=== PATIENT | female | born 1955 | race Caucasian/White ===

== ENCOUNTER → 2018-04-07 | Outpatient (CLI) | payer OTHER ==
--- NOTE | 2018-04-07 22:53 | MR ---
EXAMINATION TYPE: MR shoulder LT wo con DATE OF EXAM: 04/07/2018 COMPARISON: NONE HISTORY: Lt shoulder pain x 8 wks, no trauma TECHNIQUE: Multiplanar, multisequence imaging of the left shoulder is performed without contrast. FINDINGS: Exam is suboptimal due to patient motion artifact. Rotator Cuff: There is marked increased signal in the distal supraspinatus and infraspinatus tendons. There are partial tears at articular surface seen best paracoronal image 15 more prominent involving the infraspinatus tendon. Subscapularis tendon shows increased signal without tear. Rotator cuff mus jersey bulk is preserved. Acromioclavicular Joint: There is moderate to advanced narrowing with superior capsular hypertrophy a t the acromioclavicular joint. There is loss of anterior fat plane at distal clavicle which is inferi or to position relative to the acromion. Glenohumeral Joint: Moderate to large glenohumeral joint effusion is seen. There is moderate narrowin g. No significant spurring is present. Labrum: Blunted appearance and increased signal consistent with tear through the superior labrum is n oted. Biceps Tendon: The long head of biceps is could not clearly identified within normal location within the groove, intracapsular portion also not well visualized. Cannot exclude tear/dislocation. Bone marrow signal: Extensive subchondral cystic change superolateral humeral head is present. Other: No additional significant abnormality is appreciated. IMPRESSION: Tendinosis/partial tears of rotator cuff muscles. Fairly advanced AC joint arthropathy wi th underlying impingement. Suspect tear/dislocation of long head of biceps tendon. Superior labral te ar noted.
== END | disposition home or self-care (01) ==
LOC: RADMRIMAIN 15:34
PROVIDERS: ATTEND Internal Medicine
DX: M75.112 Incomplete rotator cuff tear or rupture of left shoulder, not specified as traumatic (principal); M19.012 Primary osteoarthritis, left shoulder; M75.42 Impingement syndrome of left shoulder; S43.492A Other sprain of left shoulder joint, initial encounter

== ENCOUNTER → 2018-04-24 | Outpatient (CLI) | payer OTHER ==
--- NOTE | 2018-04-25 15:05 | MM ---
Reason for exam: screening (asymptomatic). Last mammogram was performed 2 years and 10 months ago. History: Patient is postmenopausal and has history of endometrial cancer at age 45. Took estrogen for 1 year 3 months. Physical Findings: A clinical breast exam by your physician is recommended on an annual basis and results should be correlated with mammographic findings. MG Screening Mammo w CAD Bilateral CC and MLO view(s) were taken. XCCM view(s) were taken of the left breast. Prior study comparison: June 15, 2015, bilateral MG screening mammo w CAD. May 07, 2014, bilateral MG screening mammo w CAD. There are scattered fibroglandular densities. There is chronic nodularity bilaterally. No significant changes when compared with prior studies. ASSESSMENT: Benign, BI-RAD 2 RECOMMENDATION: Routine screening mammogram of both breasts in 1 year.
== END | disposition home or self-care (01) ==
LOC: RADMAMWWP 08:56
PROVIDERS: ATTEND Internal Medicine
DX: Z12.31 Encounter for screening mammogram for malignant neoplasm of breast (principal)
CPT/HCPCS: 77067

== ENCOUNTER → 2018-08-27 | Outpatient (CLI) | payer OTHER ==
--- NOTE | 2018-08-27 13:15 | XR ---
EXAMINATION TYPE: XR chest 2V DATE OF EXAM: 08/27/2018 COMPARISON: 10/26/2015 INDICATION: Cough TECHNIQUE: Frontal and lateral views of the chest are obtained. FINDINGS: The heart size is normal. The pulmonary vasculature is normal. The lungs are clear. IMPRESSION: 1. No acute pulmonary process.
== END | disposition home or self-care (01) ==
LOC: RADXRMAIN 12:44
PROVIDERS: ATTEND Internal Medicine
DX: R05 Cough (principal)
CPT/HCPCS: 71046

== ENCOUNTER → 2019-06-13 | Outpatient (CLI) | payer MEDICARE, OTHER ==
--- NOTE | 2019-06-19 09:54 | MM ---
Reason for exam: screening (asymptomatic). Last mammogram was performed 1 year and 2 months ago. History: Patient is postmenopausal and has history of endometrial cancer at age 45. Took estrogen for 1 year 3 months. Physical Findings: A clinical breast exam by your physician is recommended on an annual basis and results should be correlated with mammographic findings. MG Screening Mammo w CAD Bilateral CC and MLO view(s) were taken. Prior study comparison: April 24, 2018, bilateral MG screening mammo w CAD. June 15, 2015, bilateral MG screening mammo w CAD. There are scattered fibroglandular densities. There is chronic nodularity bilaterally. No significant changes when compared with prior studies. ASSESSMENT: Benign, BI-RAD 2 RECOMMENDATION: Routine screening mammogram of both breasts in 1 year.
== END | disposition home or self-care (01) ==
LOC: RADMAMWWP 08:48
PROVIDERS: ATTEND Internal Medicine
DX: Z12.31 Encounter for screening mammogram for malignant neoplasm of breast (principal)
CPT/HCPCS: 77067

== ENCOUNTER 2020-04-29 03:08 | Inpatient (IN) | payer MEDICARE, OTHER ==
[2020-04-29] MEDS ORDERED: ACETAMINOPHEN TAB 325 MG TAB PO STA (03:41)
--- NOTE | 2020-04-29 03:46 | ED ---
General Adult HPI - General Chief complaint: Weakness Stated complaint: Weakness Time Seen by Provider: 04/29/20 03:11 Source: EMS Mode of arrival: EMS Limitations: no limitations - History of Present Illness Initial comments: this patient is 64-year-old woman who presents to be evaluated for a feeling of shakiness, generalized weakness, and hyperglycemia. the patient states things started with feeling a bit shaky 3 days ago and noticing that her blood sugar was elevated. Over the course of the next couple of days she was feeling more and more weak. It is generalized weakness there is no focal symptoms. She states that mikaela was trying to walk around the house and she was not able to. She slumped to the floor and was not able to get up. They then called EMS who transported her here. The patient denies any injury. She denies any focal pain. No headache or neck pain. No chest pain, dyspnea, abdominal pain. She has not noted change in urination or bowel movements. Onset/Timin -: days(s) Severity scale (1-10): 0 Improves with: none Worsens with: none Associated Symptoms: weakness Treatments Prior to Arrival: none - Related Data Home Medications Medication Instructions Recorded Confirmed Ferrous Sulfate [Feosol] 325 mg PO BID 06/04/16 04/29/20 Furosemide [Lasix] 20 mg PO DAILY 06/04/16 04/29/20 Metoprolol Tartrate [Lopressor] 50 mg PO DAILY 06/04/16 04/29/20 Omeprazole 20 mg PO HS 06/04/16 04/29/20 Potassium Chloride [K-Tab ER] 10 meq PO DAILY 06/04/16 04/29/20 Rivaroxaban [Xarelto] 20 mg PO W/SUPPER 06/04/16 04/29/20 allopurinoL [Zyloprim] 300 mg PO DAILY 06/04/16 04/29/20 glipiZIDE [Glucotrol] 10 mg PO TID 06/04/16 04/29/20 Cetirizine HCl 10 mg PO DAILY 04/29/20 04/29/20 Dapagliflozin Propanediol [Farxiga] 10 mg PO DAILY 04/29/20 04/29/20 Digoxin 250 mcg PO DAILY 04/29/20 04/29/20 Ergocalciferol [Vitamin D2] 50,000 unit PO SA 04/29/20 04/29/20 Gabapentin 300 mg PO TID 04/29/20 04/29/20 Insulin Aspart [NovoLOG Flexpen] 10 units SQ AC-LUNCH 04/29/20 04/29/20 Insulin Degludec [Tresiba 100 units SQ HS 04/29/20 04/29/20 Flextouch U-100] metFORMIN HCL 1,000 mg PO BID 04/29/20 04/29/20 Allergies Allergy/AdvReac Type Severity Reaction Status Date / Time No Known Allergies Allergy Verified 04/29/20 07:01 Review of Systems ROS Statement: Those systems with pertinent positive or pertinent negative responses have been documented in the HPI. ROS Other: All systems not noted in ROS Statement are negative. Constitutional: Reports: weakness. Denies: fever, chills ENT: Denies: congestion Respiratory: Denies: cough, dyspnea Cardiovascular: Denies: chest pain, palpitations, orthopnea, edema, syncope Gastrointestinal: Denies: abdominal pain, nausea, vomiting, diarrhea Genitourinary: Denies: dysuria, frequency, hematuria Skin: Denies: rash Neurological: Denies: headache, weakness, numbness Past Medical History Past Medical History: Atrial Fibrillation, Diabetes Mellitus, Hypertension Additional Past Medical History / Comment(s): sinus infection History of Any Multi-Drug Resistant Organisms: None Reported Past Surgical History: Appendectomy, Section, Hysterectomy, Joint Replacement, Orthopedic Surgery Additional Past Surgical History / Comment(s): carpal tunnel bilateral, Past Psychological History: No Psychological Hx Reported Smoking Status: Never smoker Past Alcohol Use History: None Reported Past Drug Use History: None Reported General Exam Limitations: no limitations General appearance: alert, in no apparent distress Head exam: Present: atraumatic, normocephalic Eye exam: Present: normal appearance ENT exam: Present: mucous membranes dry Neck exam: Present: normal inspection, full ROM. Absent: meningismus Respiratory exam: Present: normal lung sounds bilaterally. Absent: respiratory distress, wheezes, rales, rhonchi, stridor Cardiovascular Exam: Present: regular rate, irregular rhythm, normal heart sounds. Absent: systolic murmur, diastolic murmur, rubs, gallop GI/Abdominal exam: Present: soft. Absent: distended, tenderness, guarding, re bound, rigid, mass Extremities exam: Present: normal inspection, normal capillary refill. Absent: pedal edema, calf tenderness Back exam: Present: normal inspection. Absent: CVA tenderness (R), CVA tenderness (L) Neurological exam: Present: alert Skin exam: Present: warm, dry, intact, normal color. Absent: rash Course Vital Signs 04/29/20 04/29/20 04/29/20 03:12 04:00 05:00 Temperature 101.4 F H 100.6 F H 99.4 F Pulse Rate 97 102 H 98 Respiratory 19 20 18 Rate Blood Pressure 121/84 125/83 102/63 O2 Sat by Pulse 92 L 94 L 96 Oximetry 04/29/20 04/29/20 04/29/20 06:00 07:27 09:06 Temperature 98.9 F 102.4 F H Pulse Rate 101 H 90 179 H Respiratory 19 18 33 H Rate Blood Pressure 113/51 115/69 175/81 O2 Sat by Pulse 100 96 98 Oximetry 04/29/20 04/29/20 04/29/20 09:50 12:00 13:29 Temperature 98.8 F Pulse Rate 133 H 75 77 Respiratory 18 18 18 Rate Blood Pressure 157/86 111/64 105/57 O2 Sat by Pulse 97 98 98 Oximetry EKG Findings - EKG Comments: EKG Findings:: possible old inferior infarct. - EKG Results: EKG: interpreted by ERMD, normal axis EKG shows: tachycardia (rate 106 bpm), atrial fibrillation Medical Decision Making - Lab Data Result diagrams: 04/30/20 09:17 04/30/20 09:17 Lab Results 04/29/20 04/29/20 04/29/20 Range/Units 03:21 03:21 03:21 WBC 9.3 (3.8-10.6) k/uL RBC 5.33 (3.80-5.40) m/uL Hgb 13.6 (11.4-16.0) gm/dL Hct 42.0 (34.0-46.0) % MCV 78.9 L (80.0-100.0) fL MCH 25.5 (25.0-35.0) pg MCHC 32.3 (31.0-37.0) g/dL RDW 15.6 H (11.5-15.5) % Plt Count 216 (150-450) k/uL Neutrophils % 84 % Lymphocytes % 6 % Monocytes % 7 % Eosinophils % 0 % Basophils % 1 % Neutrophils # 7.9 H (1.3-7.7) k/uL Lymphocytes # 0.6 L (1.0-4.8) k/uL Monocytes # 0.7 (0-1.0) k/uL Eosinophils # 0.0 (0-0.7) k/uL Basophils # 0.1 (0-0.2) k/uL Microcytosis Slight PT 10.9 (9.0-12.0) sec INR 1.1 (<1.2) APTT 27.5 (22.0-30.0) sec Sodium 134 L (137-145) mmol/L Potassium 4.1 (3.5-5.1) mmol/L Chloride 99 (98-107) mmol/L Carbon Dioxide 29 (22-30) mmol/L Anion Gap 6 mmol/L BUN 29 H (7-17) mg/dL Creatinine 0.80 (0.52-1.04) mg/dL Est GFR (CKD-EPI)AfAm 89 (>60 ml/min/1.73 sqM) Est GFR (CKD-EPI)NonAf 77 (>60 ml/min/1.73 sqM) Glucose 182 H (74-99) mg/dL Plasma Lactic Acid Travon (0.7-2.0) mmol/L Calcium 9.7 (8.4-10.2) mg/dL Total Bilirubin 0.7 (0.2-1.3) mg/dL AST 32 (14-36) U/L ALT 21 (4-34) U/L Alkaline Phosphatase 71 (38-126) U/L Troponin I (0.000-0.034) ng/mL Total Protein 7.0 (6.3-8.2) g/dL Albumin 3.9 (3.5-5.0) g/dL Urine Color Urine Appearance (Clear) Urine pH (5.0-8.0) Ur Specific Orange (1.001-1.035) Urine Protein (Negative) Urine Glucose (UA) (Negative) Urine Ketones (Negative) Urine Blood (Negative) Urine Nitrite (Negative) Urine Bilirubin (Negative) Urine Urobilinogen (<2.0) mg/dL Ur Leukocyte Esterase (Negative) Urine RBC (0-5) /hpf Urine WBC (0-5) /hpf Urine WBC Clumps (None) /hpf Ur Squamous Epith Cells (0-4) /hpf Amorphous Sediment (None) /hpf Urine Bacteria (None) /hpf Urine Mucus (None) /hpf Acetone, Qual Negative (Negative) Influenza Type A RNA (Not Detectd) Influenza Type B (PCR) (Not Detectd) 04/29/20 04/29/20 04/29/20 Range/Units 03:21 03:21 03:45 WBC (3.8-10.6) k/uL RBC (3.80-5.40) m/uL Hgb (11.4-16.0) gm/dL Hct (34.0-46.0) % MCV (80.0-100.0) fL MCH (25.0-35.0) pg MCHC (31.0-37.0) g/dL RDW (11.5-15.5) % Plt Count (150-450) k/uL Neutrophils % % Lymphocytes % % Monocytes % % Eosinophils % % Basophils % % Neutrophils # (1.3-7.7) k/uL Lymphocytes # (1.0-4.8) k/uL Monocytes # (0-1.0) k/uL Eosinophils # (0-0.7) k/uL Basophils # (0-0.2) k/uL Microcytosis PT (9.0-12.0) sec INR (<1.2) APTT (22.0-30.0) sec Sodium (137-145) mmol/L Potassium (3.5-5.1) mmol/L Chloride (98-107) mmol/L Carbon Dioxide (22-30) mmol/L Anion Gap mmol/L BUN (7-17) mg/dL Creatinine (0.52-1.04) mg/dL Est GFR (CKD-EPI)AfAm (>60 ml/min/1.73 sqM) Est GFR (CKD-EPI)NonAf (>60 ml/min/1.73 sqM) Glucose (74-99) mg/dL Plasma Lactic Acid Travon 1.1 (0.7-2.0) mmol/L Calcium (8.4-10.2) mg/dL Total Bilirubin (0.2-1.3) mg/dL AST (14-36) U/L ALT (4-34) U/L Alkaline Phosphatase (38-126) U/L Troponin I <0.012 (0.000-0.034) ng/mL Total Protein (6.3-8.2) g/dL Albumin (3.5-5.0) g/dL Urine Color Urine Appearance (Clear) Urine pH (5.0-8.0) Ur Specific Orange (1.001-1.035) Urine Protein (Negative) Urine Glucose (UA) (Negative) Urine Ketones (Negative) Urine Blood (Negative) Urine Nitrite (Negative) Urine Bilirubin (Negative) Urine Urobilinogen (<2.0) mg/dL Ur Leukocyte Esterase (Negative) Urine RBC (0-5) /hpf Urine WBC (0-5) /hpf Urine WBC Clumps (None) /hpf Ur Squamous Epith Cells (0-4) /hpf Amorphous Sediment (None) /hpf Urine Bacteria (None) /hpf Urine Mucus (None) /hpf Acetone, Qual (Negative) Influenza Type A RNA Not Detected (Not Detectd) Influenza Type B (PCR) Not Detected (Not Detectd) 04/29/20 Range/Units 05:00 WBC (3.8-10.6) k/uL RBC (3.80-5.40) m/uL Hgb (11.4-16.0) gm/dL Hct (34.0-46.0) % MCV (80.0-100.0) fL MCH (25.0-35.0) pg MCHC (31.0-37.0) g/dL RDW (11.5-15.5) % Plt Count (150-450) k/uL Neutrophils % % Lymphocytes % % Monocytes % % Eosinophils % % Basophils % % Neutrophils # (1.3-7.7) k/uL Lymphocytes # (1.0-4.8) k/uL Monocytes # (0-1.0) k/uL Eosinophils # (0-0.7) k/uL Basophils # (0-0.2) k/uL Microcytosis PT (9.0-12.0) sec INR (<1.2) APTT (22.0-30.0) sec Sodium (137-145) mmol/L Potassium (3.5-5.1) mmol/L Chloride (98-107) mmol/L Carbon Dioxide (22-30) mmol/L Anion Gap mmol/L BUN (7-17) mg/dL Creatinine (0.52-1.04) mg/dL Est GFR (CKD-EPI)AfAm (>60 ml/min/1.73 sqM) Est GFR (CKD-EPI)NonAf (>60 ml/min/1.73 sqM) Glucose (74-99) mg/dL Plasma Lactic Acid Travon (0.7-2.0) mmol/L Calcium (8.4-10.2) mg/dL Total Bilirubin (0.2-1.3) mg/dL AST (14-36) U/L ALT (4-34) U/L Alkaline Phosphatase (38-126) U/L Troponin I (0.000-0.034) ng/mL Total Protein (6.3-8.2) g/dL Albumin (3.5-5.0) g/dL Urine Color Yellow Urine Appearance Cloudy H (Clear) Urine pH 5.0 (5.0-8.0) Ur Specific Orange 1.021 (1.001-1.035) Urine Protein 1+ H (Negative) Urine Glucose (UA) 4+ H (Negative) Urine Ketones Negative (Negative) Urine Blood Small H (Negative) Urine Nitrite Positive H (Negative) Urine Bilirubin Negative (Negative) Urine Urobilinogen <2.0 (<2.0) mg/dL Ur Leukocyte Esterase Large H (Negative) Urine RBC 5 (0-5) /hpf Urine WBC >182 H (0-5) /hpf Urine WBC Clumps Many H (None) /hpf Ur Squamous Epith Cells 1 (0-4) /hpf Amorphous Sediment Rare H (None) /hpf Urine Bacteria Many H (None) /hpf Urine Mucus Occasional H (None) /hpf Acetone, Qual (Negative) Influenza Type A RNA (Not Detectd) Influenza Type B (PCR) (Not Detectd) Disposition Clinical Impression: Urinary tract infection, Dehydration, Hyperglycemia due to diabetes mellitus Disposition: ADMITTED IP TO THIS HOSP Condition: Good Is patient prescribed a controlled substance at d/c from ED?: No
[2020-04-29] MEDS: SODIUM CHLORIDE 0.9% 500 ML 500 ML IV SCH ×2 (03:49→04:40)
[2020-04-29 04:00] LABS: Basophils # (A) 0.1 k/uL (0-0.2); Basophils % (A) 1 %; Eosinophils % (A) 0 %; HGB 13.6 gm/dL (11.4-16.0); Lymphocytes # (A) 0.6 k/uL (1.0-4.8); Lymphocytes % (A) 6 %; MCH 25.5 pg (25.0-35.0); MCHC 32.3 g/dL (31.0-37.0); MCV 78.9 fL (80.0-100.0); Mean Platelet Volume 7.2; Microcytosis Slight; Monocytes # (A) 0.7 k/uL (0-1.0); Monocytes % (A) 7 %; Neutrophils # (A) 7.9 k/uL (1.3-7.7); Neutrophils % (A) 84 %; Platelet Count 216 k/uL (150-450); RBC 5.33 m/uL (3.80-5.40); RDW 15.6 % (11.5-15.5); WBC 9.3 k/uL (3.8-10.6)
[2020-04-29 04:05] LABS: INR 1.1 (<1.2); Partial Thromboplastin Time 27.5 sec (22.0-30.0); Prothrombin Time 10.9 sec (9.0-12.0)
[2020-04-29 04:13] LABS: ALT 21 U/L (4-34); AST 32 U/L (14-36); African American GFR (CKD) 89 (>60 ml/min/1.73 sqM); Albumin 3.9 g/dL (3.5-5.0); Alkaline Phosphatase 71 U/L (38-126); Anion Gap 6 mmol/L; Blood Urea Nitrogen 29 mg/dL (7-17); Calcium 9.7 mg/dL (8.4-10.2); Carbon Dioxide 29 mmol/L (22-30); Chloride 99 mmol/L (98-107); Glucose 182 mg/dL (74-99); Non-African American GFR(CKD) 77 (>60 ml/min/1.73 sqM); Potassium 4.1 mmol/L (3.5-5.1); Sodium 134 mmol/L (137-145); Total Bilirubin 0.7 mg/dL (0.2-1.3)
--- NOTE | 2020-04-29 04:22 | XR ---
EXAM: XR Chest, 1 View CLINICAL HISTORY: ITS.REASON XR Reason: Fever TECHNIQUE: Frontal view of the chest. COMPARISON: Chest x-ray dated 08/27/2018 FINDINGS: Lungs: Unremarkable. Pleural space: Unremarkable. Heart: Unremarkable. Mediastinum: Unremarkable. Bones/joints: Unremarkable. IMPRESSION: Normal chest x-ray.
[2020-04-29 05:28] LABS: Amorphous Sediment,Urine Rare /hpf; Appearance,Urine Cloudy (Clear); Bacteria,Urine Many /hpf; Bilirubin,Urine Negative (Negative); Blood,Urine Small (Negative); Color,Urine Yellow; Glucose,Urine (UA) 4+ (Negative); Ketones,Urine Negative (Negative); Leukocyte Esterase,Urine Large (Negative); Mucus,Urine Occasional /hpf; Nitrite,Urine Positive (Negative); Protein,Urine 1+ (Negative); RBC,Urine 5 /hpf (0-5); Specific Gravity,Urine 1.021 (1.001-1.035); Squamous Epithelial Cell,Urine 1 /hpf (0-4); Urobilinogen,Urine <2.0 mg/dL (<2.0); WBC,Urine >182 /hpf (0-5)
[2020-04-29] MEDS ORDERED: SODIUM CHLORIDE 0.9% 1,000 ML IV STA (05:37)
[2020-04-29] MEDS ORDERED: SODIUM CHLORIDE 0.9% 1,000 ML IV ONE (05:37)
[2020-04-29] MEDS ORDERED: NALOXONE 0.4 MG/ML 1 ML VIAL IV PRN (06:40)
[2020-04-29] MEDS ORDERED: ONDANSETRON 4 MG/2 ML VIAL IVP PRN (06:40)
[2020-04-29] MEDS: ACETAMINOPHEN TAB 325 MG TAB PO PRN ×2 (10:08→20:59)
[2020-04-29] MEDS: METOPROLOL TARTRATE 50 MG TAB PO SCH (10:09)
[2020-04-29] MEDS: DIGOXIN 250 MCG TAB PO SCH (10:10)
[2020-04-29 11:29] LABS: Glucose,Whole Blood 259 mg/dL (75-99)
[2020-04-29] MEDS: GABAPENTIN 300 MG CAP PO SCH ×3 (11:30→22:48)
[2020-04-29] MEDS: glipiZIDE 10 MG TAB PO SCH ×3 (11:30→22:48)
[2020-04-29] MEDS: FERROUS SULFATE 325 MG TAB PO SCH ×2 (11:34→20:59)
[2020-04-29] MEDS: POTASSIUM CHLORIDE ER 10 MEQ TAB.ER.PRT PO SCH (11:34)
[2020-04-29] MEDS: LORATADINE 10 MG TAB PO SCH (11:34)
[2020-04-29] MEDS: allopurinoL 300 MG TAB PO SCH (11:35)
[2020-04-29] MEDS: FUROSEMIDE 20 MG TAB PO SCH (11:36)
[2020-04-29] MEDS ORDERED: NON FORMULARY DRUG (Insulin Aspart [Novolog Flexpen] 100 UNIT/ML Insuln.Pen) SQ SCH (12:30)
--- NOTE | 2020-04-29 13:50 | P.HPIM ---
History of Present Illness H&P Date: 04/29/20 Luz Swann, is a 64-year-old female who presented to [facility] with symptoms of fever, chills, fall with inability to stand up she was evaluated in the emergency room, vital examination on presentation reveals a temperature of 101.4 pulse 97 respiration 19 and blood pressure 121/84 pulse ox 92% on room air, white blood count was 9.3 hemoglobin 13.6 platelet count 216 sodium 134 BUN 29 creatinine 0.8 glucose leve 182 , she had evidence of urinary tract infection, she was started on IV Rocephin, Covid 19 testing was ordered due to elevated temperature. Patient has a known history of diabetes mellitus, atrial fibrillation, hypertension, hyperlipidemia, multiple falls, and morbid obesity Review of systems patient is alert and oriented 3 in no apparent distress she has low-grade fever at this time with occasional shaking chills no headache or dizziness no chest pain no shortness of breath no cough no nausea or vomiting no abdominal pain no diarrhea no blood in the stools she has frequency with urination no burning no urgency and no hematuria. Past Medical History Past Medical History: Atrial Fibrillation, Diabetes Mellitus, Hypertension Additional Past Medical History / Comment(s): sinus infection History of Any Multi-Drug Resistant Organisms: None Reported Past Surgical History: Appendectomy, Section, Hysterectomy, Joint Replacement, Orthopedic Surgery Additional Past Surgical History / Comment(s): carpal tunnel bilateral, Past Psychological History: No Psychological Hx Reported Smoking Status: Never smoker Past Alcohol Use History: None Reported Past Drug Use History: None Reported Medications and Allergies Home Medications Medication Instructions Recorded Confirmed Type Ferrous Sulfate [Feosol] 325 mg PO BID 06/04/16 04/29/20 History Furosemide [Lasix] 20 mg PO DAILY 06/04/16 04/29/20 History Metoprolol Tartrate [Lopressor] 50 mg PO DAILY 06/04/16 04/29/20 History Omeprazole 20 mg PO HS 06/04/16 04/29/20 History Potassium Chloride [K-Tab ER] 10 meq PO DAILY 06/04/16 04/29/20 History Rivaroxaban [Xarelto] 20 mg PO W/SUPPER 06/04/16 04/29/20 History allopurinoL [Zyloprim] 300 mg PO DAILY 06/04/16 04/29/20 History glipiZIDE [Glucotrol] 10 mg PO TID 06/04/16 04/29/20 History Cetirizine HCl 10 mg PO DAILY 04/29/20 04/29/20 History Dapagliflozin Propanediol [Farxiga] 10 mg PO DAILY 04/29/20 04/29/20 History Digoxin 250 mcg PO DAILY 04/29/20 04/29/20 History Ergocalciferol [Vitamin D2] 50,000 unit PO SA 04/29/20 04/29/20 History Gabapentin 300 mg PO TID 04/29/20 04/29/20 History Insulin Aspart [NovoLOG Flexpen] 10 units SQ AC-LUNCH 04/29/20 04/29/20 History Insulin Degludec [Tresiba 100 units SQ HS 04/29/20 04/29/20 History Flextouch U-100] metFORMIN HCL 1,000 mg PO BID 04/29/20 04/29/20 History Allergies Allergy/AdvReac Type Severity Reaction Status Date / Time No Known Allergies Allergy Verified 04/29/20 07:01 Physical Exam Vitals: Vital Signs Temp Pulse Resp BP Pulse Ox 04/29/20 13:29 77 18 105/57 98 04/29/20 12:00 98.8 F 75 18 111/64 98 04/29/20 09:50 133 H 18 157/86 97 04/29/20 09:06 102.4 F H 179 H 33 H 175/81 98 04/29/20 07:27 90 18 115/69 96 04/29/20 06:00 98.9 F 101 H 19 113/51 100 04/29/20 05:00 99.4 F 98 18 102/63 96 04/29/20 04:00 100.6 F H 102 H 20 125/83 94 L 04/29/20 03:12 101.4 F H 97 19 121/84 92 L Intake and Output 04/28/20 04/29/20 04/29/20 22:59 06:59 14:59 Other: Weight 106.594 kg In general patient is alert and oriented 3 in no distress HEENT head normocephalic and atraumatic Neck is supple no JVD no goiter no lymphadenopathy Chest exam reveals a few scattered rhonchi no wheezing Cardiac exam reveals regular heart sounds S1 and S2 no gallops no murmurs Abdomen is soft nontender no organomegaly with normal bowel sounds Extremity exam reveals no edema no cyanosis or clubbing Neurological examination reveals no gross focal deficits Results CBC & Chem 7: 04/29/20 03:21 04/29/20 03:21 Labs: Abnormal Lab Results - Last 24 Hours (Table) 04/29/20 04/29/20 04/29/20 Range/Units 03:21 03:21 05:00 MCV 78.9 L (80.0-100.0) fL RDW 15.6 H (11.5-15.5) % Neutrophils # 7.9 H (1.3-7.7) k/uL Lymphocytes # 0.6 L (1.0-4.8) k/uL Sodium 134 L (137-145) mmol/L BUN 29 H (7-17) mg/dL Glucose 182 H (74-99) mg/dL POC Glucose (mg/dL) (75-99) mg/dL Urine Appearance Cloudy H (Clear) Urine Protein 1+ H (Negative) Urine Glucose (UA) 4+ H (Negative) Urine Blood Small H (Negative) Urine Nitrite Positive H (Negative) Ur Leukocyte Esterase Large H (Negative) Urine WBC >182 H (0-5) /hpf Urine WBC Clumps Many H (None) /hpf Amorphous Sediment Rare H (None) /hpf Urine Bacteria Many H (None) /hpf Urine Mucus Occasional H (None) /hpf 04/29/20 Range/Units 11:28 MCV (80.0-100.0) fL RDW (11.5-15.5) % Neutrophils # (1.3-7.7) k/uL Lymphocytes # (1.0-4.8) k/uL Sodium (137-145) mmol/L BUN (7-17) mg/dL Glucose (74-99) mg/dL POC Glucose (mg/dL) 259 H (75-99) mg/dL Urine Appearance (Clear) Urine Protein (Negative) Urine Glucose (UA) (Negative) Urine Blood (Negative) Urine Nitrite (Negative) Ur Leukocyte Esterase (Negative) Urine WBC (0-5) /hpf Urine WBC Clumps (None) /hpf Amorphous Sediment (None) /hpf Urine Bacteria (None) /hpf Urine Mucus (None) /hpf Microbiology - Last 24 Hours (Table) 04/29/20 05:00 Urine Culture - Preliminary Urine,Clean Catch Assessment and Plan Plan: 1. Urinary tract infection 2. Fever, Covid 19 testing pending 3. Dehydration, with elevated BUN to 29, and evidence of hyponatremia patient was started on IV fluid 4. Underlying history of diabetes mellitus, with hyperglycemia on presentation 5. Atrial fibrillation with occasional episodes of rapid ventricular response 6. Recent fall, no evidence of injury At this time patient will be admitted to observation unit She was started on IV fluid and IV antibiotic Urine culture ordered Covid 19 testing ordered For DVT prophylaxis subcu Lovenox For GI prophylaxis Protonix Will follow closely
[2020-04-29 16:47] LABS: Glucose,Whole Blood 234 mg/dL (75-99)
[2020-04-29 20:59] LABS: Glucose,Whole Blood 217 mg/dL (75-99)
[2020-04-29] MEDS: PANTOPRAZOLE 40 MG TABLET PO SCH (20:59)
[2020-04-29] MEDS: RIVAROXABAN 20 MG TAB PO SCH (20:59)
[2020-04-29] MEDS: INSULIN DETEMIR (LEVEMIR) 100 UNIT/ML SYR SQ SCH (21:00)
[2020-04-30] MEDS: PIPERACILLIN-TAZOBACTAM 3.375 GM in SODIUM CHLORIDE 0.9% 100 ML IVPB SCH ×3 (00:24→15:30)
[2020-04-30 06:53] LABS: Glucose,Whole Blood 66 mg/dL (75-99)
[2020-04-30 07:16] LABS: Glucose,Whole Blood 108 mg/dL (75-99)
[2020-04-30] MEDS: POTASSIUM CHLORIDE ER 10 MEQ TAB.ER.PRT PO SCH (08:20)
[2020-04-30] MEDS: glipiZIDE 10 MG TAB PO SCH ×3 (08:20→21:33)
[2020-04-30] MEDS: allopurinoL 300 MG TAB PO SCH (08:21)
[2020-04-30] MEDS: METOPROLOL TARTRATE 50 MG TAB PO SCH (08:21)
[2020-04-30] MEDS: LORATADINE 10 MG TAB PO SCH (08:21)
[2020-04-30] MEDS: FUROSEMIDE 20 MG TAB PO SCH (08:21)
[2020-04-30] MEDS: GABAPENTIN 300 MG CAP PO SCH ×3 (08:21→21:33)
[2020-04-30] MEDS: DIGOXIN 250 MCG TAB PO SCH (08:22)
[2020-04-30] MEDS: FERROUS SULFATE 325 MG TAB PO SCH ×2 (08:22→21:33)
[2020-04-30] MEDS ORDERED: ERGOCALCIFEROL 50,000 UNIT CAP PO SCH (09:00)
[2020-04-30] MEDS ORDERED: LEVOFLOXACIN 500MG-D5W PMX 500 MG in DEXTROSE/WATER 1 100ML.BAG IVPB SCH ×2 (09:00→12:00)
--- NOTE | 2020-04-30 09:01 | P.PN ---
Subjective Progress Note Date: 04/30/20 Luz Swann, is a 64-year-old female who presented to [facility] with symptoms of fever, chills, fall with inability to stand up she was evaluated in the emergency room, vital examination on presentation reveals a temperature of 101.4 pulse 97 respiration 19 and blood pressure 121/84 pulse ox 92% on room air, white blood count was 9.3 hemoglobin 13.6 platelet count 216 sodium 134 BUN 29 creatinine 0.8 glucose leve 182 , she had evidence of urinary tract infection, she was started on IV Rocephin, Covid 19 testing was ordered due to elevated temperature. Patient has a known history of diabetes mellitus, atrial fibrillation, hypertension, hyperlipidemia, multiple falls, and morbid obesity Review of systems patient is alert and oriented 3 in no apparent distress she has low-grade fever at this time with occasional shaking chills no headache or dizziness no chest pain no shortness of breath no cough no nausea or vomiting no abdominal pain no diarrhea no blood in the stools she has frequency with urination no burning no urgency and no hematuria. On 04/30/2020 patient was seen and examined on the medical floor she is alert and oriented 3 in no apparent distress she is still feeling weak and fatigued otherwise she denies any specific complaints there is no fever or chills no headache or dizziness no chest pain no shortness of breath no cough no nausea or vomiting no abdominal pain no diarrhea no blood in the stools no burning with urination no frequency or urgency and no hematuria, last night blood culture were reported as positive for gram-negative bacilli antibiotic was switched from Rocephin to Zosyn Will add Levaquin and continue to monitor closely, infectious disease consultation requested. Objective - Vital Signs Vital signs: Vital Signs Temp 98.8 F 04/30/20 03:40 Pulse 61 04/30/20 03:40 Resp 17 04/30/20 03:40 BP 132/65 04/30/20 03:40 Pulse Ox 98 04/30/20 03:40 Intake & Output 04/29/20 04/29/20 04/30/20 06:59 18:59 06:59 Weight 106.594 kg 106.594 kg Other: # Voids 1 3 - Exam In general patient is alert and oriented 3 in no distress HEENT head normocephalic and atraumatic Neck is supple no JVD no goiter no lymphadenopathy Chest exam reveals a few scattered rhonchi no wheezing Cardiac exam reveals regular heart sounds S1 and S2 no gallops no murmurs Abdomen is soft nontender no organomegaly with normal bowel sounds Extremity exam reveals no edema no cyanosis or clubbing Neurological examination reveals no gross focal deficits - Labs CBC & Chem 7: 04/29/20 03:21 04/29/20 03:21 Labs: Abnormal Lab Results - Last 24 Hours (Table) 04/29/20 04/29/20 04/29/20 Range/Units 11:28 16:46 20:57 POC Glucose (mg/dL) 259 H 234 H 217 H (75-99) mg/dL Microbiology - Last 24 Hours (Table) 04/29/20 03:21 Blood Culture Gram Stain - Preliminary Blood Blood Culture - Preliminary Gram Neg Bacilli 04/29/20 03:21 Blood Culture - Final Blood 04/29/20 05:00 Urine Culture - Preliminary Urine,Clean Catch Assessment and Plan Plan: 1. Urinary tract infection, with sepsis, blood culture positive for gram negative bacilli, antibiotic switched o Zosyn 2. Fever, Covid 19 testing pending 3. Dehydration, with elevated BUN to 29, and evidence of hyponatremia patient was started on IV fluid 4. Underlying history of diabetes mellitus, with hyperglycemia on presentation 5. Atrial fibrillation with occasional episodes of rapid ventricular response 6. Recent fall, no evidence of injury At this time patient will be admitted to observation unit She was started on IV fluid and IV antibiotic Urine culture ordered Covid 19 testing ordered For DVT prophylaxis subcu Lovenox For GI prophylaxis Protonix Will follow closely
[2020-04-30 09:33] LABS: Basophils # (A) 0.1 k/uL (0-0.2); Basophils % (A) 1 %; Eosinophils # (A) 0.1 k/uL (0-0.7); Eosinophils % (A) 1 %; HCT 37.9 % (34.0-46.0); HGB 12.3 gm/dL (11.4-16.0); Hypochromasia Slight; Lymphocytes # (A) 0.6 k/uL (1.0-4.8); Lymphocytes % (A) 8 %; MCH 26.2 pg (25.0-35.0); MCHC 32.4 g/dL (31.0-37.0); Monocytes # (A) 0.5 k/uL (0-1.0); Monocytes % (A) 7 %; Neutrophils # (A) 5.7 k/uL (1.3-7.7); Neutrophils % (A) 81 %; Platelet Count 177 k/uL (150-450); RBC 4.68 m/uL (3.80-5.40); RDW 15.6 % (11.5-15.5)
[2020-04-30 10:03] LABS: ALT 25 U/L (4-34); AST 49 U/L (14-36); African American GFR (CKD) >90 (>60 ml/min/1.73 sqM); Albumin 3.3 g/dL (3.5-5.0); Alkaline Phosphatase 53 U/L (38-126); Anion Gap 5 mmol/L; Blood Urea Nitrogen 23 mg/dL (7-17); Calcium 8.8 mg/dL (8.4-10.2); Carbon Dioxide 26 mmol/L (22-30); Chloride 102 mmol/L (98-107); Glucose 224 mg/dL (74-99); Non-African American GFR(CKD) 85 (>60 ml/min/1.73 sqM); Potassium 4.6 mmol/L (3.5-5.1); Sodium 133 mmol/L (137-145); Total Bilirubin 0.6 mg/dL (0.2-1.3); Total Protein 6.2 g/dL (6.3-8.2)
--- NOTE | 2020-04-30 10:22 | CDI ---
Documentation Clarification Form Date: 04/30/2020 10:16:31 AM From: Yeimy Triplett RN, CCDS Admit Date: 04/29/2020 06:43:00 AM Patient Name: Luz Swann Visit Number: [id number] ATTENTION: The Clinical Documentation Specialists (CDI) and [facility] Coding Staff appreciate your assistance in clarifying documentation. Please respond to the clarification below the line at the bottom and electronically sign. The CDI & [facility] Coding staff will review the response and follow-up if needed. Please note: Queries are made part of the Legal Health Record. If you have any questions, please contact the author of this message via ITS. Dr. Herb Falcon Atrial Fibrillation RVR is documented in the H&P and Progress notes and requires further specificity. History/Risk Factors: Atrial Fib, HTN, HLD, DM Clinical Indicators: 04/29 H&P and 04/30 progress notes: "Atrial fibrillation with occasional episodes of rapid ventricular response " EKG/telemetry: Atrial Fib RVR Treatment: 04/29 1.5L 0.9% NS IVF Bolus followed by 130 cc/hr x 1 L Digoxin 250mcg PO QD Lopressor 50 mg PO ED Xarelto 20 mg PO Supper In your professional opinion, can you please clarify the type of Atrial Fibrillation, if known? Chronic/Permanent Paroxysmal Persistent Other, please specify Unable to determine (Last Revision: September 2017) paroxysmal MTDD
[2020-04-30 11:52] LABS: Glucose,Whole Blood 123 mg/dL (75-99)
[2020-04-30 16:46] LABS: Glucose,Whole Blood 135 mg/dL (75-99)
[2020-04-30] MEDS: RIVAROXABAN 20 MG TAB PO SCH (17:02)
[2020-04-30 20:13] LABS: Glucose,Whole Blood 107 mg/dL (75-99)
[2020-04-30] MEDS: INSULIN DETEMIR (LEVEMIR) 100 UNIT/ML SYR SQ SCH (20:24)
[2020-04-30] MEDS: PANTOPRAZOLE 40 MG TABLET PO SCH (21:33)
--- NOTE | 2020-04-30 22:13 | P.CONS ---
History of Present Illness - Reason for Consult Consult date: 04/30/20 Bacteremia Requesting physician: Herb Falcon - Chief Complaint Shakiness and weakness x few days - History of Present Illness Patient is a 64-year-old female presenting to the ER at [facility] yesterday morning for evaluation of shakiness and generalized weakness and elevated blood sugar patient's symptoms started about 3 days before she presents to the hospital patient noticed to have progressive worsening of her symptoms mostly with generalized weakness shakiness and elevated blood sugar EMS was called who brought the patient to the hospital patient denies having any headache or URI symptoms no chest pain or shortness of breath or cough no nausea no vomiting no abdominal pain and no diarrhea on arrival to the emergency room, the patient did have a fever of 101F subsequently spiked a fever of 102F, the patient was also tachycardic white count was normal though with a left shift, patient did have a positive UA chest x-ray was negative for an acute infiltrate, patient received a dose of Rocephin in the ER subsequent blood cultures came back positive with gram-negative bacilli patient has been started on Zosyn and Levaquin infectious disease was consulted for further management of antibiotic therapy Review of Systems Positive point has been mentioned in the HPI rest of the systems are negative Past Medical History Past Medical History: Atrial Fibrillation, Diabetes Mellitus, Hypertension Additional Past Medical History / Comment(s): sinus infection History of Any Multi-Drug Resistant Organisms: None Reported Past Surgical History: Appendectomy, Section, Hysterectomy, Joint Replacement, Orthopedic Surgery Additional Past Surgical History / Comment(s): carpal tunnel bilateral, Past Anesthesia/Blood Transfusion Reactions: No Reported Reaction Past Psychological History: No Psychological Hx Reported Smoking Status: Never smoker Past Alcohol Use History: None Reported Past Drug Use History: None Reported Medications and Allergies Home Medications Medication Instructions Recorded Confirmed Type Ferrous Sulfate [Feosol] 325 mg PO BID 06/04/16 04/29/20 History Furosemide [Lasix] 20 mg PO DAILY 06/04/16 04/29/20 History Metoprolol Tartrate [Lopressor] 50 mg PO DAILY 06/04/16 04/29/20 History Omeprazole 20 mg PO HS 06/04/16 04/29/20 History Potassium Chloride [K-Tab ER] 10 meq PO DAILY 06/04/16 04/29/20 History Rivaroxaban [Xarelto] 20 mg PO W/SUPPER 06/04/16 04/29/20 History allopurinoL [Zyloprim] 300 mg PO DAILY 06/04/16 04/29/20 History glipiZIDE [Glucotrol] 10 mg PO TID 06/04/16 04/29/20 History Cetirizine HCl 10 mg PO DAILY 04/29/20 04/29/20 History Dapagliflozin Propanediol [Farxiga] 10 mg PO DAILY 04/29/20 04/29/20 History Digoxin 250 mcg PO DAILY 04/29/20 04/29/20 History Ergocalciferol [Vitamin D2] 50,000 unit PO SA 04/29/20 04/29/20 History Gabapentin 300 mg PO TID 04/29/20 04/29/20 History Insulin Aspart [NovoLOG Flexpen] 10 units SQ AC-LUNCH 04/29/20 04/29/20 History Insulin Degludec [Tresiba 100 units SQ HS 04/29/20 04/29/20 History Flextouch U-100] metFORMIN HCL 1,000 mg PO BID 04/29/20 04/29/20 History Allergies Allergy/AdvReac Type Severity Reaction Status Date / Time No Known Allergies Allergy Verified 04/29/20 07:01 Physical Exam Vitals: Vital Signs Temp Pulse Resp BP Pulse Ox 04/30/20 08:28 99.7 F H 71 16 136/65 98 04/30/20 03:40 98.8 F 61 17 132/65 98 04/29/20 22:00 99.8 F H 04/29/20 20:00 103.1 F H 105 H 17 185/97 95 04/29/20 15:28 99.2 F 68 19 106/62 95 04/29/20 14:22 99.2 F 68 17 95 Intake and Output 04/29/20 04/30/20 04/30/20 22:59 06:59 14:59 Other: # Voids 1 3 1 GENERAL DESCRIPTION: An elderly female lying in bed, no distress. No tachypnea or accessory muscle of respiration use. HEENT: Shows Pallor , no scleral icterus. Oral mucous membrane is dry. No pharyngeal erythema or thrush NECK: Trachea central, no thyromegaly. LUNGS: Unlabored breathing. Clear to auscultation anteriorly. No wheeze or crackle. HEART: S1, S2, regular rate and rhythm. No loud murmur ABDOMEN: Soft, no tenderness , guarding or rigidity, no organomegaly EXTREMITIES: No edema of feet. SKIN: No rash, no masses palpable. NEUROLOGICAL: The patient is awake, alert, oriented x3, mood and affect normal. Results CBC & Chem 7: 04/30/20 09:17 04/30/20 09:17 Labs: Abnormal Lab Results - Last 24 Hours (Table) 04/29/20 04/29/20 04/30/20 Range/Units 16:46 20:57 06:51 RDW (11.5-15.5) % Lymphocytes # (1.0-4.8) k/uL Sodium (137-145) mmol/L BUN (7-17) mg/dL Glucose (74-99) mg/dL POC Glucose (mg/dL) 234 H 217 H 66 L (75-99) mg/dL AST (14-36) U/L Total Protein (6.3-8.2) g/dL Albumin (3.5-5.0) g/dL 04/30/20 04/30/20 04/30/20 Range/Units 07:13 09:17 09:17 RDW 15.6 H (11.5-15.5) % Lymphocytes # 0.6 L (1.0-4.8) k/uL Sodium 133 L (137-145) mmol/L BUN 23 H (7-17) mg/dL Glucose 224 H (74-99) mg/dL POC Glucose (mg/dL) 108 H (75-99) mg/dL AST 49 H (14-36) U/L Total Protein 6.2 L (6.3-8.2) g/dL Albumin 3.3 L (3.5-5.0) g/dL 04/30/20 Range/Units 11:51 RDW (11.5-15.5) % Lymphocytes # (1.0-4.8) k/uL Sodium (137-145) mmol/L BUN (7-17) mg/dL Glucose (74-99) mg/dL POC Glucose (mg/dL) 123 H (75-99) mg/dL AST (14-36) U/L Total Protein (6.3-8.2) g/dL Albumin (3.5-5.0) g/dL Microbiology - Last 24 Hours (Table) 04/29/20 05:00 Urine Culture - Preliminary Urine,Clean Catch Gram Neg Bacilli 04/29/20 03:21 Blood Culture Gram Stain - Preliminary Blood Blood Culture - Preliminary Gram Neg Bacilli 04/29/20 03:21 Blood Culture - Final Blood Assessment and Plan Assessment: 1- patient presented to hospital with sepsis in this patient who did have a fever tachycardia source is likely complicated urinary tract infection in this patient who did have significantly positive UA now with evidence of gram- negative bacteremia [id number] bacteremia likely secondary to urinary source (1) Sepsis Current Visit: Yes Status: Acute Code(s): A41.9 - SEPSIS, UNSPECIFIED ORGANISM SNOMED Code(s): 81505215 (2) Gram-negative bacteremia Current Visit: Yes Status: Acute Code(s): R78.81 - BACTEREMIA SNOMED Code(s): 803017953814 (3) Urinary tract infection Current Visit: Yes Status: Acute Code(s): N39.0 - URINARY TRACT INFECTION, SITE NOT SPECIFIED SNOMED Code(s): 42261509 Plan: 1- discontinue Zosyn and Levaquin 2-start the patient on Rocephin 2 g daily 3-check ultrasound of the kidney and bladder area We will follow on clinical condition and cultures to further adjust medication if needed Thank you for this consultation will follow this patient with you Time with Patient: Less than 30
[2020-05-01 06:52] LABS: Glucose,Whole Blood 84 mg/dL (75-99)
[2020-05-01] MEDS: FUROSEMIDE 20 MG TAB PO SCH (07:42)
[2020-05-01] MEDS: POTASSIUM CHLORIDE ER 10 MEQ TAB.ER.PRT PO SCH (07:42)
[2020-05-01] MEDS: GABAPENTIN 300 MG CAP PO SCH ×3 (07:42→20:52)
[2020-05-01] MEDS: METOPROLOL TARTRATE 50 MG TAB PO SCH (07:42)
[2020-05-01] MEDS: FERROUS SULFATE 325 MG TAB PO SCH ×2 (07:43→20:43)
[2020-05-01] MEDS: allopurinoL 300 MG TAB PO SCH (07:43)
[2020-05-01] MEDS: glipiZIDE 10 MG TAB PO SCH ×3 (07:43→20:52)
[2020-05-01] MEDS: DIGOXIN 250 MCG TAB PO SCH (07:43)
[2020-05-01] MEDS: LORATADINE 10 MG TAB PO SCH (07:43)
--- NOTE | 2020-05-01 07:46 | US ---
EXAMINATION TYPE: US kidneys/renal and bladder DATE OF EXAM: 05/01/2020 COMPARISON: NONE CLINICAL HISTORY: Pyelonephritis and bacteremia. EXAM MEASUREMENTS: Right Kidney: 14.1 x 4.4 x 5.4 cm Left Kidney: 13.3 x 6.0 x 5.9 cm Morbidly obese patient. Right Kidney: enlarged Left Kidney: enlarged, lobular contour Bladder: not visualized, not distended Incidental findings, hepatosplenomegaly. There is no evidence for hydronephrosis at this point in time. No nephrolithiasis is seen. No anthony s are identified. The urinary bladder is anechoic. Bilateral ureteral jets are seen. IMPRESSION: 1. Enlarged lobulated contour of both kidneys is nonspecific. 2. Splenomegaly.
[2020-05-01 09:30] LABS: Basophils % (A) 1 %; Eosinophils # (A) 0.1 k/uL (0-0.7); Eosinophils % (A) 2 %; HCT 39.1 % (34.0-46.0); Hypochromasia Slight; Lymphocytes # (A) 1.3 k/uL (1.0-4.8); Lymphocytes % (A) 22 %; MCH 24.8 pg (25.0-35.0); MCHC 30.7 g/dL (31.0-37.0); MCV 80.8 fL (80.0-100.0); Mean Platelet Volume 7.6; Monocytes # (A) 0.6 k/uL (0-1.0); Monocytes % (A) 10 %; Neutrophils # (A) 3.6 k/uL (1.3-7.7); Neutrophils % (A) 63 %; Platelet Count 190 k/uL (150-450); RBC 4.84 m/uL (3.80-5.40); RDW 15.5 % (11.5-15.5); WBC 5.7 k/uL (3.8-10.6)
--- NOTE | 2020-05-01 09:53 | P.PN ---
Subjective Progress Note Date: 05/01/20 Luz Swann, is a 64-year-old female who presented to [facility] with symptoms of fever, chills, fall with inability to stand up she was evaluated in the emergency room, vital examination on presentation reveals a temperature of 101.4 pulse 97 respiration 19 and blood pressure 121/84 pulse ox 92% on room air, white blood count was 9.3 hemoglobin 13.6 platelet count 216 sodium 134 BUN 29 creatinine 0.8 glucose leve 182 , she had evidence of urinary tract infection, she was started on IV Rocephin, Covid 19 testing was ordered due to elevated temperature. Patient has a known history of diabetes mellitus, atrial fibrillation, hypertension, hyperlipidemia, multiple falls, and morbid obesity Review of systems patient is alert and oriented 3 in no apparent distress she has low-grade fever at this time with occasional shaking chills no headache or dizziness no chest pain no shortness of breath no cough no nausea or vomiting no abdominal pain no diarrhea no blood in the stools she has frequency with urination no burning no urgency and no hematuria. On 04/30/2020 patient was seen and examined on the medical floor she is alert and oriented 3 in no apparent distress she is still feeling weak and fatigued otherwise she denies any specific complaints there is no fever or chills no headache or dizziness no chest pain no shortness of breath no cough no nausea or vomiting no abdominal pain no diarrhea no blood in the stools no burning with urination no frequency or urgency and no hematuria, last night blood culture were reported as positive for gram-negative bacilli antibiotic was switched from Rocephin to Zosyn Will add Levaquin and continue to monitor closely, infectious disease consultation requested. On 05/01/2020 patient was seen and examined on the medical floor she is alert and oriented 3 in no distress she is feeling better, less weakness and fatigue, there is no fever or chills no headache or dizziness no chest pain no shortness of breath no cough no nausea or vomiting no abdominal pain no diarrhea no blood in the stools no burning with urination no frequency or urgency no hematuria. Patient has sepsis with positive blood culture for E. coli in the blood. Currently she is maintained on Rocephin 2 g IV every 24 hours per infectious disease recommendation. Objective - Vital Signs Vital signs: Vital Signs Temp 98.5 F 05/01/20 03:00 Pulse 81 05/01/20 03:00 Resp 16 05/01/20 03:00 BP 116/70 05/01/20 03:00 Pulse Ox 96 05/01/20 03:00 Intake & Output 04/30/20 04/30/20 05/01/20 06:59 18:59 06:59 Intake Total 1790 Balance 1790 Intake: Intake, IV Titration 200 Amount Levofloxacin 500Mg-D5w 100 Pmx 500 mg In Dextrose/ Water 1 100ml.bag @ 100 mls/hr IVPB Q24H [facility] Rx#: [id number] Piperacillin-Tazobactam 3 100 .375 gm In Sodium Chloride 0.9% 100 ml @ 25 mls/hr IVPB Q8HR [facility]I Rx# :[id number] Oral 1590 Other: # Voids 3 5 1 # Bowel Movements 1 1 - Exam In general patient is alert and oriented 3 in no distress HEENT head normocephalic and atraumatic Neck is supple no JVD no goiter no lymphadenopathy Chest exam reveals a few scattered rhonchi no wheezing Cardiac exam reveals regular heart sounds S1 and S2 no gallops no murmurs Abdomen is soft nontender no organomegaly with normal bowel sounds Extremity exam reveals no edema no cyanosis or clubbing Neurological examination reveals no gross focal deficits - Labs CBC & Chem 7: 05/01/20 08:57 04/30/20 09:17 Labs: Abnormal Lab Results - Last 24 Hours (Table) 04/30/20 04/30/20 04/30/20 Range/Units 06:51 07:13 09:17 RDW 15.6 H (11.5-15.5) % Lymphocytes # 0.6 L (1.0-4.8) k/uL Sodium (137-145) mmol/L BUN (7-17) mg/dL Glucose (74-99) mg/dL POC Glucose (mg/dL) 66 L 108 H (75-99) mg/dL AST (14-36) U/L Total Protein (6.3-8.2) g/dL Albumin (3.5-5.0) g/dL 04/30/20 04/30/20 04/30/20 Range/Units 09:17 11:51 16:41 RDW (11.5-15.5) % Lymphocytes # (1.0-4.8) k/uL Sodium 133 L (137-145) mmol/L BUN 23 H (7-17) mg/dL Glucose 224 H (74-99) mg/dL POC Glucose (mg/dL) 123 H 135 H (75-99) mg/dL AST 49 H (14-36) U/L Total Protein 6.2 L (6.3-8.2) g/dL Albumin 3.3 L (3.5-5.0) g/dL 04/30/20 Range/Units 20:12 RDW (11.5-15.5) % Lymphocytes # (1.0-4.8) k/uL Sodium (137-145) mmol/L BUN (7-17) mg/dL Glucose (74-99) mg/dL POC Glucose (mg/dL) 107 H (75-99) mg/dL AST (14-36) U/L Total Protein (6.3-8.2) g/dL Albumin (3.5-5.0) g/dL Microbiology - Last 24 Hours (Table) 04/29/20 03:21 Blood Culture Gram Stain - Final Blood Blood Culture - Final Escherichia coli 04/29/20 05:00 Urine Culture - Preliminary Urine,Clean Catch Gram Neg Bacilli Assessment and Plan Plan: 1. Urinary tract infection, with sepsis, blood culture positive for gram negative bacilli, antibiotics switched to rocephin 2 gm IV daily by ID 2. Fever, Covid 19 testing pending 3. Dehydration, with elevated BUN to 29, and evidence of hyponatremia patient was started on IV fluid 4. Underlying history of diabetes mellitus, with hyperglycemia on presentation 5. Atrial fibrillation with occasional episodes of rapid ventricular response 6. Recent fall, no evidence of injury. 7. Sepsis with positive blood culture for E. coli ( gram-negative bacilli sepsis) At this time patient will be admitted to observation unit She was started on IV fluid and IV antibiotic Urine culture ordered Covid 19 testing ordered For DVT prophylaxis subcu Lovenox For GI prophylaxis Protonix Will follow closely
[2020-05-01 09:57] LABS: ALT 24 U/L (4-34); AST 46 U/L (14-36); African American GFR (CKD) >90 (>60 ml/min/1.73 sqM); Albumin 3.2 g/dL (3.5-5.0); Alkaline Phosphatase 59 U/L (38-126); Anion Gap 6 mmol/L; Blood Urea Nitrogen 22 mg/dL (7-17); Calcium 8.9 mg/dL (8.4-10.2); Carbon Dioxide 26 mmol/L (22-30); Chloride 102 mmol/L (98-107); Glucose 187 mg/dL (74-99); Non-African American GFR(CKD) 81 (>60 ml/min/1.73 sqM); Potassium 4.4 mmol/L (3.5-5.1); Sodium 134 mmol/L (137-145); Total Bilirubin 0.4 mg/dL (0.2-1.3); Total Protein 6.2 g/dL (6.3-8.2)
[2020-05-01 10:54] LABS: Glucose,Whole Blood 157 mg/dL (75-99)
[2020-05-01 16:33] LABS: Glucose,Whole Blood 181 mg/dL (75-99)
[2020-05-01] MEDS: RIVAROXABAN 20 MG TAB PO SCH (17:06)
[2020-05-01 20:41] LABS: Glucose,Whole Blood 235 mg/dL (75-99)
[2020-05-01] MEDS: INSULIN DETEMIR (LEVEMIR) 100 UNIT/ML SYR SQ SCH (20:43)
[2020-05-01] MEDS: PANTOPRAZOLE 40 MG TABLET PO SCH (20:43)
[2020-05-02 04:45] VITALS: RESP 17
--- NOTE | 2020-05-02 04:53 | PN ---
PROGRESS NOTE DATE OF SERVICE: 05/01/2020 REASON FOR FOLLOWUP: E coli urinary tract infection and bacteremia. INTERVAL HISTORY: The patient is currently afebrile. The patient is breathing comfortably. The patient denies having any chest pain, shortness of breath or cough. No nausea, vomiting. No abdominal pain or diarrhea. PHYSICAL EXAMINATION: Blood pressure 138/79 with a pulse of 68, temperature 98.6. She is 97% on room air. General description is an elderly female lying in bed in no distress. RESPIRATORY SYSTEM: Unlabored breathing, clear to auscultation anteriorly. HEART: S1, S2. Regular rate and rhythm. ABDOMEN: Soft, no tenderness. LABS: Hemoglobin is 12, white count 5.7. BUN of 22, creatinine 0.77. Urine with E coli. Blood culture with E coli sensitive pathogen. DIAGNOSTIC IMPRESSION AND PLAN: Patient with an E coli bacteremia secondary to urinary source. Ultrasound was negative for . The patient is currently on Rocephin 2 grams daily and seemed to show overall clinical improvement. She will finish therapy with oral Cipro for another 10 to 12 days to finish a course of therapy and close outpatient followup. MMODL / IJN: [id number] /
[2020-05-02 06:01] LABS: Glucose,Whole Blood 64 mg/dL (75-99)
[2020-05-02 06:21] LABS: Glucose,Whole Blood 108 mg/dL (75-99)
[2020-05-02 08:25] LABS: Basophils % (A) 1 %; Eosinophils # (A) 0.1 k/uL (0-0.7); Eosinophils % (A) 1 %; HCT 37.6 % (34.0-46.0); HGB 12.3 gm/dL (11.4-16.0); Lymphocytes % (A) 18 %; MCHC 32.8 g/dL (31.0-37.0); MCV 79.2 fL (80.0-100.0); Mean Platelet Volume 7.6; Monocytes # (A) 0.5 k/uL (0-1.0); Monocytes % (A) 9 %; Neutrophils # (A) 3.9 k/uL (1.3-7.7); Neutrophils % (A) 68 %; Platelet Count 191 k/uL (150-450); RBC 4.75 m/uL (3.80-5.40); RDW 15.4 % (11.5-15.5); WBC 5.7 k/uL (3.8-10.6)
[2020-05-02 08:26] LABS: ALT 33 U/L (4-34); AST 61 U/L (14-36); African American GFR (CKD) >90 (>60 ml/min/1.73 sqM); Albumin 3.2 g/dL (3.5-5.0); Alkaline Phosphatase 55 U/L (38-126); Anion Gap 7 mmol/L; Blood Urea Nitrogen 21 mg/dL (7-17); Calcium 9.1 mg/dL (8.4-10.2); Carbon Dioxide 26 mmol/L (22-30); Chloride 103 mmol/L (98-107); Glucose 130 mg/dL (74-99); Non-African American GFR(CKD) >90 (>60 ml/min/1.73 sqM); Potassium 4.2 mmol/L (3.5-5.1); Sodium 136 mmol/L (137-145); Total Bilirubin 0.5 mg/dL (0.2-1.3); Total Protein 6.1 g/dL (6.3-8.2)
[2020-05-02] MEDS: METOPROLOL TARTRATE 50 MG TAB PO SCH (08:28)
[2020-05-02] MEDS: allopurinoL 300 MG TAB PO SCH (08:28)
[2020-05-02] MEDS: FERROUS SULFATE 325 MG TAB PO SCH (08:28)
[2020-05-02] MEDS: GABAPENTIN 300 MG CAP PO SCH (08:28)
[2020-05-02] MEDS: FUROSEMIDE 20 MG TAB PO SCH (08:29)
[2020-05-02] MEDS: DIGOXIN 250 MCG TAB PO SCH (08:29)
[2020-05-02] MEDS: POTASSIUM CHLORIDE ER 10 MEQ TAB.ER.PRT PO SCH (08:29)
[2020-05-02] MEDS: glipiZIDE 10 MG TAB PO SCH (08:29)
[2020-05-02] MEDS: LORATADINE 10 MG TAB PO SCH (08:29)
[2020-05-02 09:43] VITALS: BP 109/57; PULSE 53; TEMP 97
[2020-05-02 11:52] LABS: Glucose,Whole Blood 182 mg/dL (75-99)
--- NOTE | 2020-05-02 14:58 | P.DS ---
Providers Date of admission: 04/29/20 06:43 Expected date of discharge: 05/02/20 Attending physician: Herb Falcon Consults: 04/29/20 19:31 Consult Physician Routine Consulting Provider: Paul Rojas Consult Reason/Comments: sepsis, UTI fever Do you want consulting provider notified?: Yes, Notify in am Primary care physician: Herb Ezekiel [place] [facility] Course: Diagnoses on discharge: 1. Urinary tract infection, with sepsis, blood culture positive for gram negative bacilli, antibiotics switched to rocephin 2 gm IV daily by ID 2. Fever, Covid 19 testing pending 3. Dehydration, with elevated BUN to 29, and evidence of hyponatremia patient was started on IV fluid 4. Underlying history of diabetes mellitus, with hyperglycemia on presentation 5. Atrial fibrillation with occasional episodes of rapid ventricular response 6. Recent fall, no evidence of injury. 7. Sepsis with positive blood culture for E. coli ( gram-negative bacilli sep sis) Hospital course: Luz Swann, is a 64-year-old female who presented to [facility] with symptoms of fever, chills, fall with inability to stand up she was evaluated in the emergency room, vital examination on presentation reveals a temperature of 101.4 pulse 97 respiration 19 and blood pressure 121/84 pulse ox 92% on room air, white blood count was 9.3 hemoglobin 13.6 platelet count 216 sodium 134 BUN 29 creatinine 0.8 glucose leve 182 , she had evidence of urinary tract infection, she was started on IV Rocephin, Covid 19 testing was ordered due to elevated temperature. Patient has a known history of diabetes mellitus, atrial fibrillation, hypertension, hyperlipidemia, multiple falls, and morbid obesity Review of systems patient is alert and oriented 3 in no apparent distress she has low-grade fever at this time with occasional shaking chills no headache or dizziness no chest pain no shortness of breath no cough no nausea or vomiting no abdominal pain no diarrhea no blood in the stools she has frequency with urination no burning no urgency and no hematuria. On 04/30/2020 patient was seen and examined on the medical floor she is alert and oriented 3 in no apparent distress she is still feeling weak and fatigued otherwise she denies any specific complaints there is no fever or chills no headache or dizziness no chest pain no shortness of breath no cough no nausea or vomiting no abdominal pain no diarrhea no blood in the stools no burning with urination no frequency or urgency and no hematuria, last night blood culture wer e reported as positive for gram-negative bacilli antibiotic was switched from Rocephin to Zosyn Will add Levaquin and continue to monitor closely, infectious disease consultation requested. On 05/01/2020 patient was seen and examined on the medical floor she is alert and oriented 3 in no distress she is feeling better, less weakness and fatigue, there is no fever or chills no headache or dizziness no chest pain no shortness of breath no cough no nausea or vomiting no abdominal pain no diarrhea no blood in the stools no burning with urination no frequency or urgency no hematuria. Patient has sepsis with positive blood culture for E. coli in the blood. Currently she is maintained on Rocephin 2 g IV every 24 hours per infectious disease recommendation. On 05/02/2020 patient was seen and examined on the medical floor she is alert and oriented 3 in no distress there is no fever or chills no headache or dizziness no chest pain no shortness of breath no cough no nausea or vomiting no abdominal pain no diarrhea no blood in the stools no burning with urination no frequency or urgency and no hematuria. Patient was cleared by Dr. Rojas for discharge on Cipro 500 mg twice daily for 10 days he provided her with a prescription she will be followed in our office in 3-4 days for further evaluation and treatment she was notified to return to emergency room if having any fevers chills or urinary symptoms Patient Condition at Discharge: Good Plan - Discharge Summary Discharge Rx Participant: Yes New Discharge Prescriptions: New Ciprofloxacin HCl [Cipro] 500 mg PO Q12HR 10 Days #20 tab Continue Omeprazole 20 mg PO HS Rivaroxaban [Xarelto] 20 mg PO W/SUPPER Potassium Chloride [K-Tab ER] 10 meq PO DAILY Ferrous Sulfate [Iron (65 MG Elemental)] 325 mg PO BID allopurinoL [Zyloprim] 300 mg PO DAILY Metoprolol Tartrate [Lopressor] 50 mg PO DAILY Furosemide [Lasix] 20 mg PO DAILY glipiZIDE [Glucotrol] 10 mg PO TID Insulin Degludec [Tresiba Flextouch U-100] 100 units SQ HS Ergocalciferol [Vitamin D2 (DRISDOL)] 50,000 unit PO SA metFORMIN HCL 1,000 mg PO BID Gabapentin 300 mg PO TID Digoxin 250 mcg PO DAILY Dapagliflozin Propanediol [Farxiga] 10 mg PO DAILY Cetirizine HCl 10 mg PO DAILY Insulin Aspart [NovoLOG Flexpen] 10 units SQ AC-LUNCH Discharge Medication List Ferrous Sulfate [Iron (65 MG Elemental)] 325 mg PO BID 06/04/16 [History] Furosemide [Lasix] 20 mg PO DAILY 06/04/16 [History] Metoprolol Tartrate [Lopressor] 50 mg PO DAILY 06/04/16 [History] Omeprazole 20 mg PO HS 06/04/16 [History] Potassium Chloride [K-Tab ER] 10 meq PO DAILY 06/04/16 [History] Rivaroxaban [Xarelto] 20 mg PO W/SUPPER 06/04/16 [History] allopurinoL [Zyloprim] 300 mg PO DAILY 06/04/16 [History] glipiZIDE [Glucotrol] 10 mg PO TID 06/04/16 [History] Cetirizine HCl 10 mg PO DAILY 04/29/20 [History] Dapagliflozin Propanediol [Farxiga] 10 mg PO DAILY 04/29/20 [History] Digoxin 250 mcg PO DAILY 04/29/20 [History] Ergocalciferol [Vitamin D2 (DRISDOL)] 50,000 unit PO SA 04/29/20 [History] Gabapentin 300 mg PO TID 04/29/20 [History] Insulin Aspart [NovoLOG Flexpen] 10 units SQ AC-LUNCH 04/29/20 [History] Insulin Degludec [Tresiba Flextouch U-100] 100 units SQ HS 04/29/20 [History] metFORMIN HCL 1,000 mg PO BID 04/29/20 [History] Ciprofloxacin HCl [Cipro] 500 mg PO Q12HR 10 Days #20 tab 05/02/20 [Rx] Follow up Appointment(s)/Referral(s): Herb Falcon MD [Primary Care Provider] - 1-2 days
--- NOTE | 2020-05-02 16:09 | PN ---
PROGRESS NOTE DATE OF SERVICE: 05/02/2020 REASON FOR FOLLOWUP: E. Coli bacteremia and urinary tract infection. INTERVAL HISTORY: The patient is currently afebrile. The patient has been breathing comfortably. Denies having any chest pain or cough. No nausea, no vomiting, no abdominal pain or diarrhea. PHYSICAL EXAMINATION: Blood pressure is 109/57, pulse of 50, respiratory rate of 18, pulse ox 97% on room air. General description is an elderly female, up in the bed in no distress. RESPIRATORY SYSTEM: Unlabored breathing, clear to auscultation anteriorly. HEART: S1, S2. Regular rate and rhythm. ABDOMEN: Soft. No tenderness. LABS: Hemoglobin is 12.1, white count of 5.7, BUN of 21, creatinine 0.61. DIAGNOSTIC IMPRESSION AND PLAN: Patient with E. coli bacteremia The patient on Rocephin finishing therapy with oral Cipro. Prescription sent to pharmacy. Close outpatient followup. MMODL / IJN: [id number] /
--- NOTE | 2020-05-10 09:42 | CDI ---
Documentation Clarification Form Date: 05/10/2020 09:38:23 AM From: Yeimy Triplett RN, CCDS Admit Date: 04/29/2020 06:43:00 AM Patient Name: Luz Swann Visit Number: [id number] Discharge Date: 05/02/2020 04:00:00 PM ATTENTION: The Clinical Documentation Specialists (CDI) and [facility] Coding Staff appreciate your assistance in clarifying documentation. Please respond to the clarification below the line at the bottom and electronically sign. The CDI & [facility] Coding staff will review the response and follow-up if needed. Please note: Queries are made part of the Legal Health Record. If you have any questions, please contact the author of this message via ITS. Dr. Herb Falcon Covid 19 testing pending is carried through to the d/c summary and requires specificity of results. Patient history/risk factors: Atrial Fib, DM, HTN Clinical Indicators: Patient presented with Fever, dehydration, paroxysmal atrial fibrillation with RVR, E.coli sepsis and UTI 05/09 Coronavirus (PCR): not detected 05/09 CXR:"Normal chest x-ray." Labs: WNL ABGs: not done Viral Panel: influenza A&B negative Admission 05/09 312 Vital Signs: Temp 101.4, HR 97, RR 19, B/P 121/84, Spo2 92% RA Treatment: 05/12 ID Consult: "Patient with E. coli bacteremia. The patient on Rocephin finishing therapy with oral Cipro." Ceftriaxone 2 Gm IVPB Q 24 hrs Levaquin 500 mg IVPB Q 24 hrs Zosyn 3.375 gm IVPB Q 8 hrs 04/29 0.9% NS IVF bolus x 2 L In order to capture the severity of condition, please clarify if the above treatment/clinical indicators signify: COVID-19 ruled out COVID-19 confirmed COVID 19 False Negative- please specify clinical indicators and treatment Other, please specify Unable to determine (Last Form Revision: August 2019) COVID-19 ruled out DAISY
== END 2020-05-02 16:00 | disposition home or self-care (01) | DRG 872 ==
LOC: EC 03:08 → 1SOBS 06:42 → OBSVTOIN 06:43 → 1SOBS 13:01
PROVIDERS: ADMIT Internal Medicine; ATTEND Internal Medicine
DX: A41.51 Sepsis due to Escherichia coli [E. coli] (principal); N39.0 Urinary tract infection, site not specified; E87.1 Hypo-osmolality and hyponatremia; E78.5 Hyperlipidemia, unspecified; E11.65 Type 2 diabetes mellitus with hyperglycemia; E86.0 Dehydration; I10 Essential (primary) hypertension; Z20.828 Contact with and (suspected) exposure to other viral communicable diseases; I48.0 Paroxysmal atrial fibrillation; Z90.710 Acquired absence of both cervix and uterus; Z79.899 Other long term (current) drug therapy; Z79.4 Long term (current) use of insulin; Z79.01 Long term (current) use of anticoagulants; Z90.49 Acquired absence of other specified parts of digestive tract; Z98.890 Other specified postprocedural states; Z98.891 History of uterine scar from previous surgery
CPT/HCPCS: 36415; 71045; 76770; 80053; 81001; 82009; 83605; 84484; 85025; 85610; 85730; 87040; 87077; 87086; 87186; 87502; 93005; 96361; 96365; 96375; 99285

== ENCOUNTER → 2020-06-14 | Outpatient (CLI) | payer MEDICARE ==
--- NOTE | 2020-06-14 15:02 | BD ---
EXAMINATION TYPE: Axial Bone Density DATE OF EXAM: 06/14/2020 COMPARISON: 01.31.2016 CLINICAL HISTORY: 64 YR OLD FEMALE.....ICD-10 CODE: M81.0 OSTEOPOROSIS Height: 64.8 Weight: 234 FRAX RISK QUESTIONS: Family History (Parent hip fracture): NO FX Glucocorticoids (More than 3mos): YES (Ex: prednisone, prednisolone, methylprednisolone, dexamethasone, and hydrocortisone). History of Fracture in Adulthood: TOES Secondary Osteoporosis: YES 1. Type 1 Diabetes: YES RISK FACTORS HISTORY OF: HX OF BROKEN TOES IN THE PAST Family History of Osteoporosis: YES, MOTHER... NO HIP BREAK Postmenopausal woman: YES, AT AGE 46 YRS OLD, TOTAL HYST Hyperparathyroidism: NO Adrenal Insufficiency: NO MEDICATIONS: Prednisone or other steroids: ASTHMA INHALERS AND STEROIDS FOR YRS ON AND OFF Additional Medications: BP MEDS, INSULIN AND DIABETIC MEDS, REFLUX MEDS, STATIN FOR CHOLESTEROL, VIT D 2 AND D 3. Additional History: BILAT TKRs, OSTEOARTHRITIS, HYPERTENSION, DIABETIC, REFLUX CHOLESTEROL EXAM MEASUREMENTS: Bone mineral densitometry was performed using the Tenebril System. Bone mineral density as measured about the Lumbar spine is: ----- L1-L4(G/cm2): 1.545 T Score Values are as follows: ----- L1: 2.8 ----- L2: 3.1 ----- L3: 3.7 ----- L4: 2.5 ----- L1-L4: 3.0 Bone mineral density has: Increased 9.5% SINCE 01.31.2016 Bone mineral density about the R hip (g/cm2): 1.129 Bone mineral density about the L hip (g/cm2): 1.168 T Score values are as follows: -----R Neck: 1.4 -----L Neck: 1.3 -----R Total: 1.0 -----L Total: 1.3 Bone mineral density has: Decreased -1.5% SINCE 01.31.2016 FRAX%s: THERE IS A 13.0% CHANCE FOR A MAJOR OSTEOPOROTIC FX AND A 0.2% FOR HIP.....PROBABILITY FOR FX IN 10 YRS TIME IMPRESSION: Normal (Values between +1 and -1 indicate normal bone mass). Consider repeating this study in 5 year s or sooner if there is some new clinical indication. NOTE: T-SCORE=SD OF THE YOUNG ADULT MEAN.
--- NOTE | 2020-06-15 08:33 | MM ---
Reason for exam: screening (asymptomatic). Last mammogram was performed 1 year ago. History: Patient is postmenopausal and has history of endometrial cancer at age 45. Took estrogen for 1 year 3 months. Physical Findings: A clinical breast exam by your physician is recommended on an annual basis and results should be correlated with mammographic findings. MG 3D Screening Mammo W/Cad Bilateral CC and MLO view(s) were taken. Prior study comparison: June 13, 2019, bilateral MG screening mammo w CAD. April 24, 2018, bilateral MG screening mammo w CAD. There are scattered fibroglandular densities. No significant changes when compared with prior studies. ASSESSMENT: Benign, BI-RAD 2 RECOMMENDATION: Routine screening mammogram of both breasts in 1 year.
== END | disposition home or self-care (01) ==
LOC: RADMAMWWP 10:07
PROVIDERS: ATTEND Internal Medicine
DX: Z12.31 Encounter for screening mammogram for malignant neoplasm of breast (principal); M81.0 Age-related osteoporosis without current pathological fracture
CPT/HCPCS: 77063; 77067; 77080

== ENCOUNTER → 2022-06-14 | Outpatient (CLI) | payer MEDICARE ==
--- NOTE | 2022-06-15 09:26 | MM ---
Reason for Exam: Screening (asymptomatic). Last mammogram was performed 2 year(s) and 0 month(s) ago. Patient History: Menarche at age 10. First Full-Term at age 20. Left ovary removed at age 45. Right ovary removed at age 45. Hysterectomy at age 45. Postmenopausal. Endometrial cancer, age 45. Estrogen for 1 year, 3 months. Risk Values: Sharri 5 year model risk: 1.5%. NCI Lifetime model risk: 5.0%. Prior Study Comparison: 04/24/2018 Bilateral Screening Mammogram, [facility]. 06/13/2019 Bilateral Screening Mammogram, [facility]. 06/14/2020 Bilateral Screening Mammogram, [facility]. Tissue Density: There are scattered fibroglandular densities. Findings: Analyzed By CAD. Stable small circumscribed round masses throughout the bilateral breasts. There is no suspicious group of microcalcifications or suspicious enlarging mass in either breast. Overall Assessment: Benign, BI-RAD 2 Management: Screening Mammogram of both breasts in 1 year. A clinical breast exam by your physician is recommended on an annual basis and results should be correlated with mammographic findings. Electronically signed and approved by: Obi Riojas M.D.
== END | disposition home or self-care (01) ==
LOC: RADMAMWWP 09:52
PROVIDERS: ATTEND Family Medicine
DX: Z12.31 Encounter for screening mammogram for malignant neoplasm of breast (principal); Z78.0 Asymptomatic menopausal state; Z90.721 Acquired absence of ovaries, unilateral
CPT/HCPCS: 77063; 77067

== ENCOUNTER → 2022-07-23 | Outpatient (CLI) | payer MEDICARE ==
[2022-07-23 16:18] LABS: HCT 30.5 % (37.2-46.3); HGB 8.5 g/dL (12.0-15.0); MCH 19.6 pg (27.0-32.0); MCHC 27.9 g/dL (32.0-37.0); MCV 70.3 fL (80.0-97.0); Mean Platelet Volume 10.9 fL (9.5-12.2); NRBC Per 100 WBC 0 /100 WBCS (0.0-0.0); Platelet Count 210 X 10*3/uL (140-440); RBC 4.34 X 10*6/uL (4.10-5.20); RDW 20.2 % (11.5-14.5); WBC 6.69 X 10*3/uL (4.50-10.00)
[2022-07-23 19:26] LABS: African American GFR (CKD) 76.1 (60.0-200.0); Albumin 4.4 g/dL (3.8-4.9); Albumin/Globulin Ratio 1.76 (1.60-3.17); Anion Gap 11.7 mmol/L (10.00-18.00); BUN/Creat Ratio 23.89 Ratio (12.00-20.00); Blood Urea Nitrogen 21.5 mg/dL (9.0-27.0); Calcium 10.4 mg/dL (8.7-10.3); Carbon Dioxide 26.3 mmol/L (20.0-27.5); Globulin 2.5 g/dL (1.6-3.3); Non-African American GFR(CKD) 65.7 (60.0-200.0); Potassium 3.9 mmol/L (3.5-5.5); Total Bilirubin 0.4 mg/dL (0.30-1.20); Total Protein 6.9 g/dL (6.2-8.2)
== END | disposition home or self-care (01) ==
LOC: LABWHC1 10:54
PROVIDERS: ATTEND Family Medicine
DX: E11.65 Type 2 diabetes mellitus with hyperglycemia (principal)
CPT/HCPCS: 36415; 80053; 83036; 84443; 85027

== ENCOUNTER → 2022-09-05 | Outpatient (CLI) | payer MEDICARE ==
[~2022-09-05] MED LIST: REGADENOSON 0.4 MG/5 ML SYRINGE IV PRN
--- NOTE | 2022-09-05 11:42 | NM ---
EXAMINATION TYPE: NM stress lexiscan cardiolite DATE OF EXAM: 09/05/2022 COMPARISON: NONE HISTORY: Angina. History of hypertension and diabetes. Symptoms of chest pain and difficulty in breat amari. TECHNIQUE: After the intravenous administration of 9.7 mCi Tc 99m Sestamibi - Cardiolite resting SPE CT images acquired 60 minutes post injection. The patient received 0.4mg Lexiscan, 26.3 mCi Tc 99m Sestamibi - Stress images obtained [address] injection FINDINGS: Review of stress and rest SPECT images demonstrates no diminished radiotracer uptake in the anterior left ventricular wall could reflect product of old infarct versus attenuation artifact. Increased end diastolic volume is noted at 1 70 cc. 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 Correlate clinically. No scintigr aphic evidence for reversible ischemia.
--- NOTE | 2022-09-07 11:03 | CA ---
Lexiscan Nuclear Stress Test Report Name: Luz Swann Exam Date: 09/05/2022 10:07 Exam Location: [place] Stress Ht (in): 66 Wt (lb): 230 BSA: 2.12 Ordering Phys: Zoie Moore DO Referring Phys: ARIAN,, Technologist: Kyle Gomez Age: 66 Gender: F : 1955 Procedure CPT: Indications: I20.9 angina pectoris ICD-10 Codes: Patient History: CHEST PAIN, DIFFICULTY IN BREATHING, HTN, DIABETIC, FAMILY HX OF HEART DISEASE Medications: OMEPRAZOLE, ALLOPURINOL, TRICOR, NOVOLOG, LANTUS, PREGABALIN, OZEMPIC, OXYBUTYNIN, FARXIGA, VIT D3, TOPROL, DIGOXIN, XARELTO, LASIX ALDACTONE, METFORMIN, POTASSIUM CHLORIDE, ATORVASTATIN Meds past 24 hrs: Pretest Chest Pain: STRESS TEST Lexiscan Protocol Exercise Duration (min:sec): 01:[address] Depressions (mm): Angina Score: Zamora Score: Resting HR (bpm): 67 Peak HR (bpm): 89 Resting BP (mmHg): 142 / 61 Peak BP (mmHg): 142 / 60 MPHR: 152 Target HR: 129 % MPHR: 59 METS: 1.0 Total Dose: Peak Dose: Atropine: Double Product: 92578 BP Response: Stress Termination: INFUSION COMPLETE Stress Symptoms: NO SYMPTOMS Stress Summary: ECG ANALYSIS Resting ECG: Stress ECG: CONCLUSIONS Non-diagnostic electrocardiogram stress testing Dr. Dallas Murray MD (Electronically Signed) Final Date: 07 September 2022 11:02
== END | disposition home or self-care (01) ==
LOC: RADNMMAIN 07:50
PROVIDERS: ATTEND Family Medicine
DX: I48.19 Other persistent atrial fibrillation (principal); I20.9 Angina pectoris, unspecified; I50.31 Acute diastolic (congestive) heart failure; E11.9 Type 2 diabetes mellitus without complications; I10 Essential (primary) hypertension
CPT/HCPCS: 93017; 78452; A9500; J2785

== ENCOUNTER 2022-09-06 07:53 | Day surgery (SDC) | payer MEDICARE, OTHER ==
[~2022-09-06 07:53] MED LIST changes: +LACTATED RINGERS 1,000 ML IV SCH; +LIDOCAINE 1% (10MG/ML) FOR IV START INTRADERMA PRN; -REGADENOSON 0.4 MG/5 ML SYRINGE IV PRN
[2022-09-06 08:32] VITALS: TEMP 97.1
[2022-09-06 08:38] LABS: Glucose,Whole Blood 202 mg/dL (70-110)
[2022-09-06] MEDS ORDERED: PROPOFOL 10 MG/ML 20 ML VIAL IV ONE (08:52)
[2022-09-06] MEDS ORDERED: LIDOCAINE 2% INJ 20 MG/ML (2 ML VIAL) ONE (08:52)
--- NOTE | 2022-09-06 08:56 | P.GSHP ---
History of Present Illness H&P Date: 09/06/22 Chief Complaint: GI bleed This a 58-year-old female referred from Dr. Zoie ryan. Patient has history of GI bleed. She presents today for colonoscopy. Her hemoglobin in June 2022 was 8.5 Past Medical History Past Medical History: Atrial Fibrillation, Coronary Artery Disease (CAD), Diabetes Mellitus, Hyperlipidemia, Hypertension, Osteoarthritis (OA) Additional Past Medical History / Comment(s): sinus infection History of Any Multi-Drug Resistant Organisms: None Reported Past Surgical History: Appendectomy, Section, Hysterectomy, Joint Rep lacement, Orthopedic Surgery Additional Past Surgical History / Comment(s): carpal tunnel bilateral X2 . BOTH KNEE REPLACED. Past Anesthesia/Blood Transfusion Reactions: No Reported Reaction Additional Past Anesthesia/Blood Transfusion Reaction / Comment(s): NO SPINAL ANESTHESIA. Past Psychological History: No Psychological Hx Reported Smoking Status: Never smoker Past Alcohol Use History: None Reported Past Drug Use History: None Reported Medications and Allergies Home Medications Medication Instructions Recorded Confirmed Type Furosemide [Lasix] 40 mg PO QAM 06/04/16 09/06/22 History Omeprazole 20 mg PO HS 06/04/16 09/06/22 History Potassium Chloride [K-Tab ER] 10 meq PO DAILY 06/04/16 09/06/22 History Rivaroxaban [Xarelto] 20 mg PO W/SUPPER 06/04/16 09/06/22 History allopurinoL [Zyloprim] 300 mg PO QAM 06/04/16 09/06/22 History Dapagliflozin Propanediol [Farxiga] 10 mg PO QAM 04/29/20 09/06/22 History Digoxin 250 mcg PO QAM 04/29/20 09/06/22 History metFORMIN HCL [Glucophage] 1,000 mg PO BID 04/29/20 09/06/22 History Atorvastatin [Lipitor] 20 mg PO HS 09/03/22 09/06/22 History Cholecalciferol [Vitamin D3 (25 1 tab PO CONTINUOUS 09/03/22 09/06/22 History Mcg = 1000 Iu)] Fenofibrate Nanocrystallized 145 mg PO QAM 09/03/22 09/06/22 History [Fenofibrate] Gabapentin [Neurontin] 150 mg PO BID 09/03/22 09/06/22 History INSULIN LISPRO (humaLOG) [humaLOG] 22 unit SQ TID-W/MEALS 09/03/22 09/06/22 History Insulin Glargine,Hum.rec.anlog 90 unit SQ HS 09/03/22 09/06/22 History [Lantus Solostar Pen] Metoprolol Succinate (ER) [Toprol 50 mg PO QAM 09/03/22 09/06/22 History XL] Oxybutynin Chloride [Ditropan] 5 mg PO QAM 09/03/22 09/06/22 History Spironolactone [Aldactone] 50 mg PO QAM 09/03/22 09/06/22 History Allergies Allergy/AdvReac Type Severity Reaction Status Date / Time No Known Allergies Allergy Verified 09/06/22 08:14 Surgical - Exam Vital Signs Temp Pulse Resp BP Pulse Ox 97.1 F L 92 14 139/69 95 09/06/22 08:31 09/06/22 08:31 09/06/22 08:31 09/06/22 08:31 09/06/22 08:31 - General well developed, well nourished, no distress - Eyes PERRL - ENT normal pinna - Neck no masses - Respiratory normal expansion - Cardiovascular Rhythm: regular - Abdomen Abdomen: soft, non tender Results - Labs Abnormal Lab Results - Last 24 Hours (Table) 09/06/22 Range/Units 08:28 POC Glucose (mg/dL) 202 H (70-110) mg/dL Assessment and Plan Assessment: History of GI bleed and anemia. We'll perform colonoscopy.
--- NOTE | 2022-09-06 09:11 | P.OP ---
Date of Procedure: 09/06/22 Preoperative Diagnosis: GI bleed Postoperative Diagnosis: Internal hemorrhoids Diverticulosis Poor colon prep Procedure(s) Performed: Colonoscopy Anesthesia: MAC Surgeon: Nirmal Guillory Pathology: none sent Condition: stable Disposition: PACU Description of Procedure: Patient's placed on the endoscopy table in the lateral position. She received IV sedation. Digital rectal exam was performed. This revealed internal and external hemorrhoids. The flexible colonoscope was then placed patient anus and passed throughout the entire colon. The ileocecal valve was visualized. The cecum was inspected. There was a large amount liquid stool cecum which made a limited view of the mucosa. No polyps were seen. The transverse colon appeared normal. The descending; there is mild diverticular changes. The scope was then brought back the rectum this appeared normal. Scope withdrawn through the anus and internal and external hemorrhoids were noted. There was no evidence of GI bleed. Presumed patient may have had bleeding from hemorrhoids. The poor colon prep resulted in a suboptimal view of the right colon.
[2022-09-06 10:09] VITALS: BP 125/66; PULSE 83; RESP 18
== END 2022-09-06 10:11 | disposition home or self-care (01) ==
LOC: ORWHC2ENDO 07:53
PROVIDERS: ATTEND Surgery
DX: K57.30 Diverticulosis of large intestine without perforation or abscess without bleeding (principal); K64.4 Residual hemorrhoidal skin tags; K64.8 Other hemorrhoids; I48.91 Unspecified atrial fibrillation; I10 Essential (primary) hypertension; E78.5 Hyperlipidemia, unspecified; I25.10 Atherosclerotic heart disease of native coronary artery without angina pectoris; E11.9 Type 2 diabetes mellitus without complications; K21.9 Gastro-esophageal reflux disease without esophagitis; M19.90 Unspecified osteoarthritis, unspecified site; Z86.19 Personal history of other infectious and parasitic diseases; Z90.49 Acquired absence of other specified parts of digestive tract; Z96.653 Presence of artificial knee joint, bilateral; Z79.01 Long term (current) use of anticoagulants; Z98.890 Other specified postprocedural states; Z79.84 Long term (current) use of oral hypoglycemic drugs; Z79.899 Other long term (current) drug therapy; Z79.4 Long term (current) use of insulin
CPT/HCPCS: 45378; J2704; J2001

== ENCOUNTER → 2022-10-05 | Outpatient (CLI) | payer MEDICARE ==
--- NOTE | 2022-10-07 09:29 | MR ---
EXAMINATION TYPE: MR abdomen wo/w con DATE OF EXAM: 10/05/2022 COMPARISON: CT abdomen and pelvis September 04, 2022 HISTORY: Abnormal CT, adrenal mass. CONTRAST: Standard multiplanar, multisequence MRI departmental protocol images were obtained without contrast a nd with 10 mL intravenous Gadavist gadolinium contrast. Imaging performed of the abdomen focusing an d bilateral adrenal glands. FINDINGS: Adrenal glands: Right adrenal gland remains within normal limits. Persistent small left adrenal mass measuring 2.1 x 1.8 cm axial image 42 series 901 shows diffuse signal dropout on in and out of phase imaging consistent with benign lipid rich adenoma. Other: Interval resolution of small right pleural effusion. Persistent hepatomegaly with diffuse sign al dropout consistent with mild diffuse fatty infiltration. There is redemonstration of dependent 1.6 cm gallstone in gallbladder. Persistent 2.5 cm thin-walled cyst in the upper pole of the right kidne y. No hydronephrosis seen bilaterally. No suspicious small or large bowel dilatation. No intra-abdomi nal ascites. No AAA. Osseous structures are intact. IMPRESSION: 1. There is redemonstration of 2.1 cm left adrenal mass with diffuse signal dropout consistent with b enign lipid rich adenoma. 2. Hepatomegaly with mild diffuse fatty infiltration of the liver is noted.
== END | disposition home or self-care (01) ==
LOC: RADMRIMAIN 17:31
PROVIDERS: ATTEND Family Medicine
DX: E27.8 Other specified disorders of adrenal gland (principal); K76.0 Fatty (change of) liver, not elsewhere classified; R16.0 Hepatomegaly, not elsewhere classified
CPT/HCPCS: 74183; A9585

== ENCOUNTER 2022-11-16 08:50 | Day surgery (SDC) | payer MEDICARE, OTHER ==
[2022-11-14 14:00] VITALS: BMI 36.1
[~2022-11-16 08:50] MED LIST changes: +ACETAMINOPHEN TAB 500 MG TAB PO PRN; +DEXAMETHASONE SOD PHOSPHATE 4 MG/ML 1 ML VIAL IV ONE; +HEPARIN SODIUM,PORCINE/PF 5,000 UNIT/0.5 ML SYRINGE SQ PRN; +HYDROmorphone 0.5 MG/0.5 ML SYRINGE IVP PRN; -LIDOCAINE 1% (10MG/ML) FOR IV START INTRADERMA PRN; +MIDAZOLAM 2 MG/2 ML VIAL IV PRN; +ONDANSETRON 4 MG/2 ML VIAL IVP ONE
[2022-11-16] MEDS ORDERED: ONDANSETRON 4 MG/2 ML VIAL IVP ONE (09:35)
[2022-11-16] MEDS ORDERED: LACTATED RINGERS 1,000 ML IV ONE (09:35)
[2022-11-16] MEDS ORDERED: DEXAMETHASONE SOD PHOSPHATE 4 MG/ML 1 ML VIAL IVP ONE (09:37)
[2022-11-16] MEDS ORDERED: INSULIN ASPART (NovoLOG) 100 UNIT/ML VIAL SQ ONE (09:43)
[2022-11-16 09:45] LABS: Glucose,Whole Blood 293 mg/dL (70-110)
[2022-11-16] MEDS ORDERED: GLYCOPYRROLATE 0.2 MG/ML 2 ML VIAL ONE (09:47)
[2022-11-16] MEDS ORDERED: SUCCINYLCHOLINE CHLORIDE 200 MG/10 ML VIAL IV ONE (09:47)
[2022-11-16] MEDS ORDERED: KETOROLAC 15 MG/ML 1 ML VIAL ONE (09:47)
[2022-11-16] MEDS ORDERED: MIDAZOLAM 2 MG/2 ML VIAL ONE (09:47)
[2022-11-16] MEDS ORDERED: fentaNYL (PF) 50 MCG/ML 2 ML AMP ONE (09:47)
[2022-11-16] MEDS ORDERED: PHENYLEPHRINE-0.9% NACL SYG 1,000 MCG/10 ML SYRINGE ONE (09:47)
[2022-11-16] MEDS ORDERED: NEOSTIGMINE 1 MG/ML 10 ML VIAL ONE (09:47)
[2022-11-16] MEDS ORDERED: PROPOFOL 10 MG/ML 20 ML VIAL IV ONE (09:47)
[2022-11-16] MEDS ORDERED: BUPIVACAINE (PF) 0.25% 30 ML VIAL SQ ONE ×2 (10:01→10:14)
--- NOTE | 2022-11-16 10:55 | P.OP ---
Date of Procedure: 11/16/22 Preoperative Diagnosis: Cholecystitis Postoperative Diagnosis: Cholecystitis Procedure(s) Performed: Laparoscopic cholecystectomy Anesthesia: BAN Surgeon: Nirmal Guillory Estimated Blood Loss (ml): 5 Pathology: other (Gallbladder) Condition: stable Disposition: PACU Description of Procedure: The patient was placed on the operating table. The patient received a general endotracheal tube anesthesia. The patients abdomen was prepped and draped in the usual sterile fashion. Through an infraumbilical stab incision, the fascia of the anterior abdominal wall was grasped with a pair of Kochers and then the Veress needle was placed in the peritoneal cavity. Position of the Veress needle was confirmed with positive drop test. The abdomen was then insufflated. After adequate insufflation, the 10 mm trocar was placed in the peritoneal cavity. Following this the laparoscope was placed in the peritoneal cavity. The patient was placed in the head-up, right side up position and then a 5 mm trocar was placed in the right lateral and right subcostal position under direct visualization. A 8 mm trocar was placed in the epigastric position. The gallbladder was grasped in the fundus and infundibulum. Traction on the gallbladder was placed in the lateral and the cephalad positions. The triangle of Calot was visualized.. The cystic duct was bluntly dissected until the union of the cystic duct and common bile duct was seen. A critical view of safety was achieved. The cystic duct was then divided and sealed with the Harmonic scissors. A PDS Endoloop was then placed throughout the cystic duct stump. The cystic artery divided and sealed with the Harmonic scissors. The gallbladder was then removed from the liver bed using Harmonic scissors. The gallbladder was then extracted through the epigastric port site. Operative field was checked for any bleeding spots and Harmonic scissors was used to coagulate the liver bed. The abdomen was irrigated. The trocars were removed. The skin was closed using interrupted 3-0 Vicryl suture. Dermabond dressing were applied. The patient tolerated the procedure well.
[2022-11-16 11:01] VITALS: TEMP 97
[2022-11-16 11:05] LABS: Glucose,Whole Blood 281 mg/dL (70-110)
[2022-11-16] MEDS ORDERED: SODIUM CHLORIDE 0.9% 1,000 ML IV ONE ×2 (11:11)
[2022-11-16 12:15] LABS: Glucose,Whole Blood 277 mg/dL (70-110)
[2022-11-16 12:29] VITALS: RESP 16
[2022-11-16] MEDS ORDERED: INSULIN ASPART (NovoLOG) 100 UNIT/ML VIAL SQ SCH (12:30)
[2022-11-16 12:51] LABS: Glucose,Whole Blood 288 mg/dL (70-110)
[2022-11-16 14:39] VITALS: BP 139/70; PULSE 59
== END 2022-11-16 14:51 | disposition home or self-care (01) ==
LOC: OR 08:50
PROVIDERS: ATTEND Surgery
DX: K80.10 Calculus of gallbladder with chronic cholecystitis without obstruction (principal); I25.10 Atherosclerotic heart disease of native coronary artery without angina pectoris; I10 Essential (primary) hypertension; E78.5 Hyperlipidemia, unspecified; I48.91 Unspecified atrial fibrillation; E11.9 Type 2 diabetes mellitus without complications; M19.90 Unspecified osteoarthritis, unspecified site; K21.9 Gastro-esophageal reflux disease without esophagitis; Z79.4 Long term (current) use of insulin; Z79.899 Other long term (current) drug therapy
CPT/HCPCS: 88304; 84132; 47562; J2250; J0330; J1100; J2710; J0690; J2405; J3010; J1885; J2370; J2704; J1644

== ENCOUNTER 2022-11-16 23:52 | Inpatient (IN) | payer MEDICARE ==
[2022-11-16 23:59] LABS: Glucose,Whole Blood 416 mg/dL (70-110)
[2022-11-17] MEDS ORDERED: SODIUM CHLORIDE 0.9% 1,000 ML IV ONE (00:06)
[2022-11-17 00:26] LABS: Anisocytosis Moderate; Basophils % (A) 0 %; Eosinophils # (A) 0.1 k/uL (0-0.7); Eosinophils % (A) 0 %; HCT 31.8 % (34.0-46.0); HGB 9.5 gm/dL (11.4-16.0); Hypochromasia Marked; Lymphocytes # (A) 0.5 k/uL (1.0-4.8); Lymphocytes % (A) 3 %; MCH 19.4 pg (25.0-35.0); MCHC 29.9 g/dL (31.0-37.0); MCV 64.8 fL (80.0-100.0); Mean Platelet Volume 9.1; Microcytosis Marked; Monocytes # (A) 0.6 k/uL (0-1.0); Monocytes % (A) 4 %; Neutrophils # (A) 14.3 k/uL (1.3-7.7); Neutrophils % (A) 92 %; Platelet Count 268 k/uL (150-450); Poikilocytosis Slight; RBC 4.91 m/uL (3.80-5.40); RDW 21.3 % (11.5-15.5); WBC 15.6 k/uL (3.8-10.6)
--- NOTE | 2022-11-17 00:26 | ED ---
General Adult HPI - General Chief complaint: Weakness Stated complaint: Weakness, High Blood Sugar Time Seen by Provider: 11/16/22 23:54 Source: patient, EMS, RN notes reviewed, old records reviewed Mode of arrival: EMS Limitations: no limitations - History of Present Illness Initial comments: 67-year-old female presents for evaluation of weakness, hyperglycemia. Patient has history of diabetes. She was discharged from this hospital earlier today af ter having laparoscopic cholecystectomy. She has no abdominal pain. No vomiting. She's had weakness since she had returned home. She was unable to stand and called paramedics. She denies chest pain. Denies abdominal pain. Complains only of weakness and fatigue. This is nonfocal. - Related Data Home Medications Medication Instructions Recorded Confirmed Furosemide [Lasix] 40 mg PO QAM 06/04/16 11/16/22 Omeprazole 20 mg PO HS 06/04/16 11/16/22 Potassium Chloride [K-Tab ER] 10 meq PO DAILY 06/04/16 11/16/22 Rivaroxaban [Xarelto] 20 mg PO W/SUPPER 06/04/16 11/16/22 allopurinoL [Zyloprim] 300 mg PO QAM 06/04/16 11/16/22 Dapagliflozin Propanediol [Farxiga] 10 mg PO QAM 04/29/20 11/16/22 Digoxin 250 mcg PO QAM 04/29/20 11/16/22 metFORMIN HCL [Glucophage] 1,000 mg PO BID 04/29/20 11/16/22 Atorvastatin [Lipitor] 20 mg PO HS 09/03/22 11/16/22 Cholecalciferol [Vitamin D3 (25 25 mcg PO DAILY 09/03/22 11/16/22 Mcg = 1000 Iu)] Fenofibrate Nanocrystallized 145 mg PO QAM 09/03/22 11/16/22 [Fenofibrate] Gabapentin [Neurontin] 150 mg PO BID 09/03/22 11/16/22 INSULIN LISPRO (humaLOG) [humaLOG] 22 unit SQ TID-W/MEALS 09/03/22 11/16/22 Insulin Glargine,Hum.rec.anlog 90 unit SQ HS 09/03/22 11/16/22 [Lantus Solostar Pen] Metoprolol Succinate (ER) [Toprol 50 mg PO QAM 09/03/22 11/16/22 XL] Spironolactone [Aldactone] 50 mg PO QAM 09/03/22 11/16/22 oxyBUTYnin chloride [Ditropan] 5 mg PO QAM 09/03/22 11/16/22 Semaglutide [Ozempic] 2 mg SQ WEEKLY 11/16/22 11/16/22 Allergies Allergy/AdvReac Type Severity Reaction Status Date / Time No Known Allergies Allergy Verified 11/17/22 00:07 Review of Systems ROS Statement: Those systems with pertinent positive or pertinent negative responses have been documented in the HPI. ROS Other: All systems not noted in ROS Statement are negative. Past Medical History Past Medical History: Atrial Fibrillation, Coronary Artery Disease (CAD), Diabetes Mellitus, GI Bleed, Hyperlipidemia, Hypertension, Osteoarthritis (OA) Additional Past Medical History / Comment(s): GI bleed, having MRI for chest mass on 10-05-22-SOB improved SOB History of Any Multi-Drug Resistant Organisms: None Reported Past Surgical History: Appendectomy, Section, Hysterectomy, Joint Replacement, Orthopedic Surgery Additional Past Surgical History / Comment(s): Bilateral carpal tunnel, bilateral total knee replacements, colonoscopy, EGD. Past Anesthesia/Blood Transfusion Reactions: Previous Problems w/ Anesthesia Additional Past Anesthesia/Blood Transfusion Reaction / Comment(s): Had spinal fluid leak w/ prior spinal for knee surgery-stated was told not to have spinals. No hx blood transfusion. Past Psychological History: No Psychological Hx Reported Smoking Status: Never smoker Past Alcohol Use History: None Reported Past Drug Use History: None Reported - Past Family History Mother Family Medical History: No Reported History General Exam Limitations: no limitations General appearance: alert, in no apparent distress Head exam: Present: atraumatic, normocephalic Eye exam: Present: normal appearance ENT exam: Present: mucous membranes dry Respiratory exam: Present: normal lung sounds bilaterally. Absent: respiratory distress, wheezes Cardiovascular Exam: Present: regular rate, irregular rhythm, systolic murmur GI/Abdominal exam: Present: soft. Absent: distended, tenderness, guarding Extremities exam: Present: normal inspection Neurological exam: Present: alert, oriented X3, CN II-XII intact. Absent: motor sensory deficit Psychiatric exam: Present: normal affect, normal mood Skin exam: Present: warm, dry, intact. Absent: cyanosis, diaphoretic, erythema Course Vital Signs 11/17/22 11/17/22 00:00 01:35 Temperature 100.1 F H 99.0 F Pulse Rate 76 76 Respiratory 16 16 Rate Blood Pressure 113/55 O2 Sat by Pulse 94 L 93 L Oximetry Medical Decision Making - Medical Decision Making Was pt. sent in by a medical professional or institution (, [facility], DIRECTOR SYSTEMS, urgent care, hospital, or halfway...) When possible be specific @ -No Did you speak to anyone other than the patient for history (EMS, parent, family, police, friend...)? What history was obtained from this source @ -No Did you review nursing and triage notes (agree or disagree)? Why? @ -I reviewed and agree with nursing and triage notes Were old charts reviewed (outside hosp., previous admission, EMS record, old EKG, old radiological studies, urgent care reports/EKG's, halfway records)? Report findings @ -No old charts were reviewed Differential Diagnosis (chest pain, altered mental status, abdominal pain women, abdominal pain men, vaginal bleeding, weakness, fever, dyspnea, syncope, headache, dizziness, GI bleed, back pain, seizure, CVA, palpatations, mental health, musculoskeletal)? @ -[Differential Weakness: Hypoglycemia, shock, sepsis, hyponatremia, anemia, infection, GA, ETOH, adverse medicine reaction, overdose, stroke, this is not meant to be an all-inclusive list. EKG interpreted by me (3pts min.). @Atrial fibrillation rate of 76, QRS duration 109, QTC 364, no ST segment changes. X-rays interpreted by me (1pt min.). @ -None done CT interpreted by me (1pt min.). @ -None done U/S interpreted by me (1pt. min.). @ -None done What testing was considered but not performed or refused? (CT, X-rays, U/S, labs)? Why? @ -None What meds were considered but not given or refused? Why? @ -None Did you discuss the management of the patient with other professionals (professionals i.e. , EV[facility], DIRECTOR SYSTEM[employer], lab, RT, psych nurse, social work therapist, client services vice president, teacher, dog license officer supervisor, child welfare caseworker)? Give summary @ -Case discussed with Dr. Guillory, and [facility] Was smoking cessation discussed for >3mins.? @ -No Was critical care preformed (if so, how long)? @ -No Were there social determinants of health that impacted care today? How? (Homelessness, low income, unemployed, alcoholism, drug addiction, transportation, low edu. Level, literacy, decrease access to med. care, skilled nursing, rehab)? @ -No Was there de-escalation of care discussed even if they declined (Discuss DNR or withdrawal of care, Hospice)? DNR status @ -No What co-morbidities impacted this encounter? (DM, HTN, Smoking, COPD, CAD, Cancer, CVA, ARF, Chemo, Hep., AIDS, mental health diagnosis, sleep apnea, morbid obesity)? @ -[DM, postop cholecystectomy Was patient admitted / discharged? Hospital course, mention meds given and route, prescriptions, significant lab abnormalities, going to OR and other pertinent info. @ 67-year-old female with dehydration, hyperglycemia. Patient not in DKA. She will benefit from IV fluids and glucose management. She'll be admitted to internal medicine with general surgery on consult. Undiagnosed new problem with uncertain prognosis? @ -No Drug Therapy requiring intensive monitoring for toxicity (Heparin, Nitro, Insulin, Cardizem)? @ -No Were any procedures done? @ -No Diagnosis/symptom? @ Dehydration, hyperglycemia Acute, or Chronic, or Acute on Chronic? @ -Acute Uncomplicated (without systemic symptoms) or Complicated (systemic symptoms)? @ -default Side effects of treatment? @ -No Exacerbation, Progression, or Severe Exacerbation? @ -No Poses a threat to life or bodily function? How? (Chest pain, USA, GA, pneumonia, PE, COPD, DKA, ARF, appy, cholecystitis, CVA, Diverticulitis, Homicidal, Suicidal, threat to staff... and all critical care pts) @ -[Medium risk - Lab Data Result diagrams: 11/17/22 00:09 11/17/22 00:09 Lab Results 11/16/22 11/17/22 11/17/22 Range/Units 23:58 00:09 00:09 WBC 15.6 H (3.8-10.6) k/uL RBC 4.91 (3.80-5.40) m/uL Hgb 9.5 L (11.4-16.0) gm/dL Hct 31.8 L (34.0-46.0) % MCV 64.8 L (80.0-100.0) fL MCH 19.4 L (25.0-35.0) pg MCHC 29.9 L (31.0-37.0) g/dL RDW 21.3 H (11.5-15.5) % Plt Count 268 (150-450) k/uL MPV 9.1 Neutrophils % 92 % Lymphocytes % 3 % Monocytes % 4 % Eosinophils % 0 % Basophils % 0 % Neutrophils # 14.3 H (1.3-7.7) k/uL Lymphocytes # 0.5 L (1.0-4.8) k/uL Monocytes # 0.6 (0-1.0) k/uL Eosinophils # 0.1 (0-0.7) k/uL Basophils # 0.0 (0-0.2) k/uL Hypochromasia Marked Poikilocytosis Slight Anisocytosis Moderate Microcytosis Marked Sodium 133 L (137-145) mmol/L Potassium 4.9 (3.5-5.1) mmol/L Chloride 94 L (98-107) mmol/L Carbon Dioxide 27 (22-30) mmol/L Anion Gap 12 mmol/L BUN 47 H (7-17) mg/dL Creatinine 1.48 H (0.52-1.04) mg/dL Est GFR (CKD-EPI)AfAm 41 (>60 ml/min/1.73 sqM) Est GFR (CKD-EPI)NonAf 36 (>60 ml/min/1.73 sqM) Glucose 382 H (74-99) mg/dL POC Glucose (mg/dL) 416 H (70-110) mg/dL POC Glu Senior Major Gifts Officer ID Bernie Strong Plasma Lactic Acid Travon (0.7-2.0) mmol/L Calcium 8.8 (8.4-10.2) mg/dL Magnesium 2.3 (1.6-2.3) mg/dL Total Bilirubin 0.8 (0.2-1.3) mg/dL AST 101 H (14-36) U/L ALT 38 H (4-34) U/L Alkaline Phosphatase 50 (38-126) U/L Total Protein 7.1 (6.3-8.2) g/dL Albumin 4.1 (3.5-5.0) g/dL Acetone, Qual Negative (Negative) 11/17/22 11/17/22 Range/Units 00:09 01:06 WBC (3.8-10.6) k/uL RBC (3.80-5.40) m/uL Hgb (11.4-16.0) gm/dL Hct (34.0-46.0) % MCV (80.0-100.0) fL MCH (25.0-35.0) pg MCHC (31.0-37.0) g/dL RDW (11.5-15.5) % Plt Count (150-450) k/uL MPV Neutrophils % % Lymphocytes % % Monocytes % % Eosinophils % % Basophils % % Neutrophils # (1.3-7.7) k/uL Lymphocytes # (1.0-4.8) k/uL Monocytes # (0-1.0) k/uL Eosinophils # (0-0.7) k/uL Basophils # (0-0.2) k/uL Hypochromasia Poikilocytosis Anisocytosis Microcytosis Sodium (137-145) mmol/L Potassium (3.5-5.1) mmol/L Chloride (98-107) mmol/L Carbon Dioxide (22-30) mmol/L Anion Gap mmol/L BUN (7-17) mg/dL Creatinine (0.52-1.04) mg/dL Est GFR (CKD-EPI)AfAm (>60 ml/min/1.73 sqM) Est GFR (CKD-EPI)NonAf (>60 ml/min/1.73 sqM) Glucose (74-99) mg/dL POC Glucose (mg/dL) 347 H (70-110) mg/dL POC Glu Senior Major Gifts Officer ID Lynette Rowe Plasma Lactic Acid Travon 2.9 H* (0.7-2.0) mmol/L Calcium (8.4-10.2) mg/dL Magnesium (1.6-2.3) mg/dL Total Bilirubin (0.2-1.3) mg/dL AST (14-36) U/L ALT (4-34) U/L Alkaline Phosphatase (38-126) U/L Total Protein (6.3-8.2) g/dL Albumin (3.5-5.0) g/dL Acetone, Qual (Negative) Disposition Clinical Impression: Dehydration, Hyperglycemia due to diabetes mellitus Disposition: ADMITTED IP TO THIS HOSP Condition: Stable Is patient prescribed a controlled substance at d/c from ED?: No Time of Disposition: 01:51
[2022-11-17 00:38] LABS: ALT 38 U/L (4-34); AST 101 U/L (14-36); African American GFR (CKD) 41 (>60 ml/min/1.73 sqM); Albumin 4.1 g/dL (3.5-5.0); Alkaline Phosphatase 50 U/L (38-126); Anion Gap 12 mmol/L; Blood Urea Nitrogen 47 mg/dL (7-17); Calcium 8.8 mg/dL (8.4-10.2); Carbon Dioxide 27 mmol/L (22-30); Chloride 94 mmol/L (98-107); Glucose 382 mg/dL (74-99); Magnesium 2.3 mg/dL (1.6-2.3); Non-African American GFR(CKD) 36 (>60 ml/min/1.73 sqM); Potassium 4.9 mmol/L (3.5-5.1); Sodium 133 mmol/L (137-145); Total Bilirubin 0.8 mg/dL (0.2-1.3); Total Protein 7.1 g/dL (6.3-8.2)
[2022-11-17 01:07] LABS: Glucose,Whole Blood 347 mg/dL (70-110)
[2022-11-17] MEDS ORDERED: ONDANSETRON 4 MG/2 ML VIAL IVP PRN (01:20)
[2022-11-17] MEDS ORDERED: NALOXONE 0.4 MG/ML 1 ML VIAL IV PRN (01:20)
[2022-11-17] MEDS ORDERED: HYDROcodone/APAP 5-325MG 1 EACH TAB PO PRN (01:20)
[2022-11-17] MEDS ORDERED: MORPHINE SULFATE 4 MG/ML SYRINGE IV PRN (01:20)
[2022-11-17] MEDS: SODIUM CHLORIDE 0.9% 1,000 ML IV SCH ×3 (01:37→20:31)
[2022-11-17] MEDS ORDERED: DEXTROSE 50% SYRINGE 50 ML IVP PRN ×2 (01:48)
[2022-11-17 03:31] LABS: Appearance,Urine Cloudy (Clear); Bacteria,Urine Rare /hpf; Bilirubin,Urine Negative (Negative); Blood,Urine Negative (Negative); Color,Urine Light Yellow; Glucose,Urine (UA) 4+ (Negative); Ketones,Urine Negative (Negative); Leukocyte Esterase,Urine Large (Negative); Mucus,Urine Rare /hpf; Nitrite,Urine Negative (Negative); Protein,Urine Negative (Negative); RBC,Urine 1 /hpf (0-5); Specific Gravity,Urine 1.021 (1.001-1.035); Squamous Epithelial Cell,Urine <1 /hpf (0-4); Urobilinogen,Urine <2.0 mg/dL (<2.0); WBC,Urine 84 /hpf (0-5)
[2022-11-17 07:23] LABS: Glucose,Whole Blood 259 mg/dL (70-110)
[2022-11-17] MEDS: INSULIN ASPART (NovoLOG) 100 UNIT/ML VIAL SQ SCH ×6 (07:39→21:50)
[2022-11-17] MEDS: DIGOXIN 250 MCG TAB PO SCH (09:56)
[2022-11-17] MEDS: DAPAGLIFLOZIN PROPANEDIOL 10 MG TABLET PO SCH (09:56)
--- NOTE | 2022-11-17 10:11 | P.GSCN ---
History of Present Illness Consult date: 11/17/22 Reason for Consult: Hyperglycemia, dehydration History of present illness: This a 4-year-old female underwent recent laparoscopically cholecystectomy. Patient was undocked emergent complaints of lethargy. Her workup showed a blood sugar of 500 on admission. Patient's a known diabetic. She is not compliant with her medications. The patient has no abdominal pain. Her laparoscopic incisions are clean dry and intact. Past Medical History Past Medical History: Atrial Fibrillation, Coronary Artery Disease (CAD), Diabetes Mellitus, GI Bleed, Hyperlipidemia, Hypertension, Osteoarthritis (OA) Additional Past Medical History / Comment(s): GI bleed, having MRI for chest mass on 10-05-22-SOB improved SOB History of Any Multi-Drug Resistant Organisms: None Reported Past Surgical History: Appendectomy, Section, Cholecystectomy, Hysterectomy, Joint Replacement, Orthopedic Surgery Additional Past Surgical History / Comment(s): Bilateral carpal tunnel, bilateral total knee replacements, colonoscopy, EGD. Past Anesthesia/Blood Transfusion Reactions: Previous Problems w/ Anesthesia Additional Past Anesthesia/Blood Transfusion Reaction / Comm: Had spinal fluid leak w/ prior spinal for knee surgery-stated was told not to have spinals. No h x blood transfusion. Past Psychological History: No Psychological Hx Reported Smoking Status: Never smoker Past Alcohol Use History: None Reported Past Drug Use History: None Reported - Past Family History Mother Family Medical History: No Reported History Medications and Allergies Home Medications Medication Instructions Recorded Confirmed Type Furosemide [Lasix] 40 mg PO QAM 06/04/16 11/16/22 History Omeprazole 20 mg PO HS 06/04/16 11/16/22 History Potassium Chloride [K-Tab ER] 10 meq PO DAILY 06/04/16 11/16/22 History Rivaroxaban [Xarelto] 20 mg PO W/SUPPER 06/04/16 11/16/22 History allopurinoL [Zyloprim] 300 mg PO QAM 06/04/16 11/16/22 History Dapagliflozin Propanediol [Farxiga] 10 mg PO QAM 04/29/20 11/16/22 History Digoxin 250 mcg PO QAM 04/29/20 11/16/22 History metFORMIN HCL [Glucophage] 1,000 mg PO BID 04/29/20 11/16/22 History Atorvastatin [Lipitor] 20 mg PO HS 09/03/22 11/16/22 History Cholecalciferol [Vitamin D3 (25 25 mcg PO DAILY 09/03/22 11/16/22 History Mcg = 1000 Iu)] Fenofibrate Nanocrystallized 145 mg PO QAM 09/03/22 11/16/22 History [Fenofibrate] Gabapentin [Neurontin] 150 mg PO BID 09/03/22 11/16/22 History INSULIN LISPRO (humaLOG) [humaLOG] 22 unit SQ TID-W/MEALS 09/03/22 11/16/22 History Insulin Glargine,Hum.rec.anlog 90 unit SQ HS 09/03/22 11/16/22 History [Lantus Solostar Pen] Metoprolol Succinate (ER) [Toprol 50 mg PO QAM 09/03/22 11/16/22 History XL] Spironolactone [Aldactone] 50 mg PO QAM 09/03/22 11/16/22 History oxyBUTYnin chloride [Ditropan] 5 mg PO QAM 09/03/22 11/16/22 History Semaglutide [Ozempic] 2 mg SQ WEEKLY 11/16/22 11/16/22 History Allergies Allergy/AdvReac Type Severity Reaction Status Date / Time No Known Allergies Allergy Verified 11/17/22 00:07 Surgical - Exam Vital Signs Temp Pulse Resp Pulse Ox 100.1 F H 76 16 94 L 11/17/22 00:00 11/17/22 00:00 11/17/22 00:00 11/17/22 00:00 - General well developed, well nourished, no distress - Eyes PERRL - ENT normal pinna - Neck no masses - Respiratory normal expansion - Cardiovascular Rhythm: regular - Abdomen Abdomen: soft, non tender Results - Labs 11/17/22 00:09 11/17/22 00:09 Abnormal Lab Results - Last 24 Hours (Table) 11/16/22 11/17/22 11/17/22 Range/Units 23:58 00:09 00:09 WBC 15.6 H (3.8-10.6) k/uL Hgb 9.5 L (11.4-16.0) gm/dL Hct 31.8 L (34.0-46.0) % MCV 64.8 L (80.0-100.0) fL MCH 19.4 L (25.0-35.0) pg MCHC 29.9 L (31.0-37.0) g/dL RDW 21.3 H (11.5-15.5) % Neutrophils # 14.3 H (1.3-7.7) k/uL Lymphocytes # 0.5 L (1.0-4.8) k/uL Sodium 133 L (137-145) mmol/L Chloride 94 L (98-107) mmol/L BUN 47 H (7-17) mg/dL Creatinine 1.48 H (0.52-1.04) mg/dL Glucose 382 H (74-99) mg/dL POC Glucose (mg/dL) 416 H (70-110) mg/dL Plasma Lactic Acid Travon (0.7-2.0) mmol/L AST 101 H (14-36) U/L ALT 38 H (4-34) U/L Urine Appearance (Clear) Urine Glucose (UA) (Negative) Ur Leukocyte Esterase (Negative) Urine WBC (0-5) /hpf Urine WBC Clumps (None) /hpf Urine Bacteria (None) /hpf Urine Mucus (None) /hpf 11/17/22 11/17/22 11/17/22 Range/Units 00:09 01:06 03:10 WBC (3.8-10.6) k/uL Hgb (11.4-16.0) gm/dL Hct (34.0-46.0) % MCV (80.0-100.0) fL MCH (25.0-35.0) pg MCHC (31.0-37.0) g/dL RDW (11.5-15.5) % Neutrophils # (1.3-7.7) k/uL Lymphocytes # (1.0-4.8) k/uL Sodium (137-145) mmol/L Chloride (98-107) mmol/L BUN (7-17) mg/dL Creatinine (0.52-1.04) mg/dL Glucose (74-99) mg/dL POC Glucose (mg/dL) 347 H (70-110) mg/dL Plasma Lactic Acid Travon 2.9 H* (0.7-2.0) mmol/L AST (14-36) U/L ALT (4-34) U/L Urine Appearance Cloudy H (Clear) Urine Glucose (UA) 4+ H (Negative) Ur Leukocyte Esterase Large H (Negative) Urine WBC 84 H (0-5) /hpf Urine WBC Clumps Many H (None) /hpf Urine Bacteria Rare H (None) /hpf Urine Mucus Rare H (None) /hpf 11/17/22 Range/Units 07:21 WBC (3.8-10.6) k/uL Hgb (11.4-16.0) gm/dL Hct (34.0-46.0) % MCV (80.0-100.0) fL MCH (25.0-35.0) pg MCHC (31.0-37.0) g/dL RDW (11.5-15.5) % Neutrophils # (1.3-7.7) k/uL Lymphocytes # (1.0-4.8) k/uL Sodium (137-145) mmol/L Chloride (98-107) mmol/L BUN (7-17) mg/dL Creatinine (0.52-1.04) mg/dL Glucose (74-99) mg/dL POC Glucose (mg/dL) 259 H (70-110) mg/dL Plasma Lactic Acid Travon (0.7-2.0) mmol/L AST (14-36) U/L ALT (4-34) U/L Urine Appearance (Clear) Urine Glucose (UA) (Negative) Ur Leukocyte Esterase (Negative) Urine WBC (0-5) /hpf Urine WBC Clumps (None) /hpf Urine Bacteria (None) /hpf Urine Mucus (None) /hpf Diabetes panel 11/17/22 Range/Units 00:09 Sodium 133 L (137-145) mmol/L Potassium 4.9 (3.5-5.1) mmol/L Chloride 94 L (98-107) mmol/L Carbon Dioxide 27 (22-30) mmol/L BUN 47 H (7-17) mg/dL Creatinine 1.48 H (0.52-1.04) mg/dL Glucose 382 H (74-99) mg/dL Calcium 8.8 (8.4-10.2) mg/dL AST 101 H (14-36) U/L ALT 38 H (4-34) U/L Alkaline Phosphatase 50 (38-126) U/L Total Protein 7.1 (6.3-8.2) g/dL Albumin 4.1 (3.5-5.0) g/dL Calcium panel 11/17/22 Range/Units 00:09 Calcium 8.8 (8.4-10.2) mg/dL Albumin 4.1 (3.5-5.0) g/dL Pituitary panel 11/17/22 Range/Units 00:09 Sodium 133 L (137-145) mmol/L Potassium 4.9 (3.5-5.1) mmol/L Chloride 94 L (98-107) mmol/L Carbon Dioxide 27 (22-30) mmol/L BUN 47 H (7-17) mg/dL Creatinine 1.48 H (0.52-1.04) mg/dL Glucose 382 H (74-99) mg/dL Calcium 8.8 (8.4-10.2) mg/dL Adrenal panel 11/17/22 Range/Units 00:09 Sodium 133 L (137-145) mmol/L Potassium 4.9 (3.5-5.1) mmol/L Chloride 94 L (98-107) mmol/L Carbon Dioxide 27 (22-30) mmol/L BUN 47 H (7-17) mg/dL Creatinine 1.48 H (0.52-1.04) mg/dL Glucose 382 H (74-99) mg/dL Calcium 8.8 (8.4-10.2) mg/dL Total Bilirubin 0.8 (0.2-1.3) mg/dL AST 101 H (14-36) U/L ALT 38 H (4-34) U/L Alkaline Phosphatase 50 (38-126) U/L Total Protein 7.1 (6.3-8.2) g/dL Albumin 4.1 (3.5-5.0) g/dL Assessment and Plan Assessment: Hyperglycemia Dehydration Patiently medically managed. She is doing well from her laparoscopic cholecystectomy. However she is noncompliant with her diabetic medications.
[2022-11-17 12:31] LABS: Glucose,Whole Blood 291 mg/dL (70-110)
[2022-11-17 17:30] LABS: Glucose,Whole Blood 278 mg/dL (70-110)
[2022-11-17] MEDS: RIVAROXABAN 20 MG TAB PO SCH (17:36)
[2022-11-17] MEDS: metFORMIN 500 MG TAB PO SCH (17:36)
[2022-11-17] MEDS: PANTOPRAZOLE 40 MG TABLET PO SCH (20:30)
[2022-11-17] MEDS: ATORVASTATIN 20 MG TAB PO SCH (20:30)
[2022-11-17] MEDS: GABAPENTIN PO SCH (20:31)
[2022-11-17 20:50] LABS: Glucose,Whole Blood 259 mg/dL (70-110)
[2022-11-17] MEDS: INSULIN DETEMIR (LEVEMIR) 100 UNIT/ML SYR SQ SCH (21:51)
[2022-11-18 08:02] LABS: Glucose,Whole Blood 185 mg/dL (70-110)
[2022-11-18] MEDS: INSULIN ASPART (NovoLOG) 100 UNIT/ML VIAL SQ SCH ×7 (08:45→20:43)
[2022-11-18] MEDS: SPIRONOLACTONE 25 MG TAB PO SCH (08:45)
[2022-11-18] MEDS: POTASSIUM CHLORIDE ER 10 MEQ TAB.ER.PRT PO SCH (08:46)
[2022-11-18] MEDS: METOPROLOL SUCCINATE (ER) 50 MG TAB.ER.24H PO SCH (08:46)
[2022-11-18] MEDS: DIGOXIN 250 MCG TAB PO SCH (08:46)
[2022-11-18] MEDS: FUROSEMIDE 40 MG TAB PO SCH (08:46)
[2022-11-18] MEDS: metFORMIN 500 MG TAB PO SCH ×2 (08:46→17:52)
[2022-11-18] MEDS: FENOFIBRATE 160 MG TAB PO SCH (08:46)
[2022-11-18] MEDS: DAPAGLIFLOZIN PROPANEDIOL 10 MG TABLET PO SCH (08:46)
[2022-11-18] MEDS: oxyBUTYnin chloride 5 MG TAB PO SCH (08:46)
[2022-11-18] MEDS: allopurinoL 300 MG TAB PO SCH (08:46)
[2022-11-18] MEDS: GABAPENTIN PO SCH ×2 (08:47→20:45)
[2022-11-18] MEDS: SODIUM CHLORIDE 0.9% 1,000 ML IV SCH ×2 (08:47→17:53)
[2022-11-18 09:29] LABS: African American GFR (CKD) 53.4 (60.0-200.0); Albumin 3.4 g/dL (3.8-4.9); Albumin/Globulin Ratio 1.48 (1.60-3.17); Anion Gap 7.7 mmol/L (10.00-18.00); BUN/Creat Ratio 24.92 Ratio (12.00-20.00); Blood Urea Nitrogen 29.9 mg/dL (9.0-27.0); Calcium 8.7 mg/dL (8.7-10.3); Carbon Dioxide 28.3 mmol/L (20.0-27.5); Globulin 2.3 g/dL (1.6-3.3); Non-African American GFR(CKD) 46.1 (60.0-200.0); Potassium 4.1 mmol/L (3.5-5.5); Total Bilirubin 0.4 mg/dL (0.30-1.20); Total Protein 5.7 g/dL (6.2-8.2)
--- NOTE | 2022-11-18 09:55 | P.HPIM ---
History of Present Illness H&P Date: 11/17/22 Chief Complaint: Elevated blood sugars/weakness 67-year-old female presents for evaluation of weakness, hyperglycemia. Patient has history of diabetes. She was discharged from this hospital earlier today after having laparoscopic cholecystectomy. She has no abdominal pain. No vomiting. She's had weakness since she had returned home. She was unable to stand and called paramedics. She denies chest pain. Denies abdominal pain. Complains only of weakness and fatigue. This is nonfocal. Workup completed in ED reveals --- Atrial fibrillation rate of 76, QRS duration 109, QTC 364, no ST segment changes. Blood work reveals stable CBC 15.6, hemoglobin of 9.5, platelet count of 268, sodium 133, potassium 4.9, BUN/creatinine elevated at 47/1.48 and blood glucose of 382; acetone is negative; lactic acid elevated at 2.9 Review of Systems REVIEW OF SYSTEMS: CONSTITUTIONAL: No fever, no malaise, no fatigue. HEENT: No recent visual problems or hearing problems. Denied any sore throat. CARDIOVASCULAR: No chest pain, orthopnea, PND, no palpitations, no syncope. PULMONARY: No shortness of breath, no cough, no hemoptysis. GASTROINTESTINAL: No diarrhea, no nausea, no vomiting, no abdominal pain. NEUROLOGICAL: No headaches, no weakness, no numbness. HEMATOLOGICAL: Denies any bleeding or petechiae. GENITOURINARY: Denies any burning micturition, frequency, or urgency. MUSCULOSKELETAL/RHEUMATOLOGICAL: Denies any joint pain, swelling, or any muscle pain. ENDOCRINE: Denies any polyuria or polydipsia. The rest of the 14-point review of systems is negative. Past Medical History Past Medical History: Atrial Fibrillation, Coronary Artery Disease (CAD), Diabetes Mellitus, GI Bleed, Hyperlipidemia, Hypertension, Osteoarthritis (OA) Additional Past Medical History / Comment(s): GI bleed, having MRI for chest mass on 10-05-22- improved SOB History of Any Multi-Drug Resistant Organisms: None Reported Past Surgical History: Appendectomy, Section, Cholecystectomy, Hys terectomy, Joint Replacement, Orthopedic Surgery Additional Past Surgical History / Comment(s): Bilateral carpal tunnel, bilateral total knee replacements, colonoscopy, EGD. Past Anesthesia/Blood Transfusion Reactions: Previous Problems w/ Anesthesia Additional Past Anesthesia/Blood Transfusion Reaction / Comment(s): Had spinal fluid leak w/ prior spinal for knee surgery-stated was told not to have spinals. No hx blood transfusion. Past Psychological History: No Psychological Hx Reported Smoking Status: Never smoker Past Alcohol Use History: None Reported Past Drug Use History: None Reported - Past Family History Mother Family Medical History: No Reported History Medications and Allergies Home Medications Medication Instructions Recorded Confirmed Type Omeprazole 20 mg PO HS 06/04/16 11/17/22 History Potassium Chloride [K-Tab ER] 20 meq PO BID 06/04/16 11/17/22 History Rivaroxaban [Xarelto] 20 mg PO W/SUPPER 06/04/16 11/17/22 History allopurinoL [Zyloprim] 300 mg PO DAILY 06/04/16 11/17/22 History Dapagliflozin Propanediol [Farxiga] 10 mg PO DAILY 04/29/20 11/17/22 History Digoxin 250 mcg PO DAILY 04/29/20 11/17/22 History metFORMIN HCL [Glucophage] 1,000 mg PO BID 04/29/20 11/17/22 History Atorvastatin [Lipitor] 20 mg PO HS 09/03/22 11/17/22 History Cholecalciferol [Vitamin D3 (25 25 mcg PO DAILY 09/03/22 11/17/22 History Mcg = 1000 Iu)] Fenofibrate Nanocrystallized 145 mg PO DAILY 09/03/22 11/17/22 History [Fenofibrate] Insulin Glargine,Hum.rec.anlog 90 unit SQ HS 09/03/22 11/17/22 History [Lantus Solostar Pen] Metoprolol Succinate (ER) [Toprol 50 mg PO DAILY 09/03/22 11/17/22 History XL] Spironolactone [Aldactone] 50 mg PO DAILY 09/03/22 11/17/22 History oxyBUTYnin chloride [Ditropan] 5 mg PO DAILY 09/03/22 11/17/22 History Semaglutide [Ozempic] 2 mg SQ Q7D 11/16/22 11/17/22 History Furosemide [Lasix] 40 mg PO DAILY 11/17/22 11/17/22 History Insulin Aspart [NovoLOG Flexpen] 22 units SQ AC-TID 11/17/22 11/17/22 History Pregabalin [Lyrica] 150 mg PO TID 11/17/22 11/17/22 History Allergies Allergy/AdvReac Type Severity Reaction Status Date / Time No Known Allergies Allergy Verified 11/17/22 14:14 Physical Exam Vitals: Vital Signs Temp Pulse Pulse Resp BP BP BP 11/17/22 07:00 100 F H 65 16 121/70 11/17/22 03:15 99.1 F 74 18 119/74 11/17/22 02:34 99 F 72 18 129/68 11/17/22 01:35 99.0 F 76 16 113/55 11/17/22 00:00 100.1 F H 76 16 Pulse Ox 11/17/22 07:00 92 L 11/17/22 03:15 97 11/17/22 02:34 96 11/17/22 01:35 93 L 11/17/22 00:00 94 L Intake and Output 11/16/22 11/17/22 11/17/22 22:59 06:59 14:59 Intake Total 118 Output Total 400 Balance -400 118 Intake: Oral 118 Output: Urine 400 Other: Voiding Method Bedside Commode # Voids 2 Weight 99.79 kg PHYSICAL EXAMINATION: GENERAL: The patient is alert and oriented x3, not in any acute distress. Well developed, well nourished. HEENT: Pupils are round and equally reacting to light. EOMI. No scleral icterus. No conjunctival pallor. Normocephalic, atraumatic. No pharyngeal erythema. No thyromegaly. CARDIOVASCULAR: S1 and S2 present. No murmurs, rubs, or gallops. PULMONARY: Chest is clear to auscultation, no wheezing or crackles. ABDOMEN: Soft, nontender, nondistended, normoactive bowel sounds. No palpable organomegaly. MUSCULOSKELETAL: No joint swelling or deformity. EXTREMITIES: No cyanosis, clubbing, or pedal edema. NEUROLOGICAL: Gross neurological examination did not reveal any focal deficits. SKIN: No rashes. Results CBC & Chem 7: 11/17/22 00:09 11/18/22 05:43 Labs: Abnormal Lab Results - Last 24 Hours (Table) 11/16/22 11/17/22 11/17/22 Range/Units 23:58 00:09 00:09 WBC 15.6 H (3.8-10.6) k/uL Hgb 9.5 L (11.4-16.0) gm/dL Hct 31.8 L (34.0-46.0) % MCV 64.8 L (80.0-100.0) fL MCH 19.4 L (25.0-35.0) pg MCHC 29.9 L (31.0-37.0) g/dL RDW 21.3 H (11.5-15.5) % Neutrophils # 14.3 H (1.3-7.7) k/uL Lymphocytes # 0.5 L (1.0-4.8) k/uL Sodium 133 L (137-145) mmol/L Chloride 94 L (98-107) mmol/L BUN 47 H (7-17) mg/dL Creatinine 1.48 H (0.52-1.04) mg/dL Glucose 382 H (74-99) mg/dL POC Glucose (mg/dL) 416 H (70-110) mg/dL Plasma Lactic Acid Travon (0.7-2.0) mmol/L AST 101 H (14-36) U/L ALT 38 H (4-34) U/L Urine Appearance (Clear) Urine Glucose (UA) (Negative) Ur Leukocyte Esterase (Negative) Urine WBC (0-5) /hpf Urine WBC Clumps (None) /hpf Urine Bacteria (None) /hpf Urine Mucus (None) /hpf 11/17/22 11/17/22 11/17/22 Range/Units 00:09 01:06 03:10 WBC (3.8-10.6) k/uL Hgb (11.4-16.0) gm/dL Hct (34.0-46.0) % MCV (80.0-100.0) fL MCH (25.0-35.0) pg MCHC (31.0-37.0) g/dL RDW (11.5-15.5) % Neutrophils # (1.3-7.7) k/uL Lymphocytes # (1.0-4.8) k/uL Sodium (137-145) mmol/L Chloride (98-107) mmol/L BUN (7-17) mg/dL Creatinine (0.52-1.04) mg/dL Glucose (74-99) mg/dL POC Glucose (mg/dL) 347 H (70-110) mg/dL Plasma Lactic Acid Travon 2.9 H* (0.7-2.0) mmol/L AST (14-36) U/L ALT (4-34) U/L Urine Appearance Cloudy H (Clear) Urine Glucose (UA) 4+ H (Negative) Ur Leukocyte Esterase Large H (Negative) Urine WBC 84 H (0-5) /hpf Urine WBC Clumps Many H (None) /hpf Urine Bacteria Rare H (None) /hpf Urine Mucus Rare H (None) /hpf 11/17/22 Range/Units 07:21 WBC (3.8-10.6) k/uL Hgb (11.4-16.0) gm/dL Hct (34.0-46.0) % MCV (80.0-100.0) fL MCH (25.0-35.0) pg MCHC (31.0-37.0) g/dL RDW (11.5-15.5) % Neutrophils # (1.3-7.7) k/uL Lymphocytes # (1.0-4.8) k/uL Sodium (137-145) mmol/L Chloride (98-107) mmol/L BUN (7-17) mg/dL Creatinine (0.52-1.04) mg/dL Glucose (74-99) mg/dL POC Glucose (mg/dL) 259 H (70-110) mg/dL Plasma Lactic Acid Travon (0.7-2.0) mmol/L AST (14-36) U/L ALT (4-34) U/L Urine Appearance (Clear) Urine Glucose (UA) (Negative) Ur Leukocyte Esterase (Negative) Urine WBC (0-5) /hpf Urine WBC Clumps (None) /hpf Urine Bacteria (None) /hpf Urine Mucus (None) /hpf Thrombosis Risk Factor Assmnt - Choose All That Apply Any of the Below Risk Factors Present?: Yes Each Factor Represents 1 point: Obesity (BMI >25) Other Risk Factors: Yes Each Risk Factor Represents 2 Points: Age 61-74 years, Laparoscopic surgery Other congenital or acquired thrombophilia - If yes, enter type in comment: No Thrombosis Risk Factor Assessment Total Risk Factor Score: 5 Thrombosis Risk Factor Assessment Level: High Risk Assessment and Plan Assessment: 1. Marked hyperglycemia without acidosis - Acetone is negative with a CO2 about 25; patient has elevated lactic acid level of 2.9 likely related to dehydration - Patient was hydrated with 1 L of IV fluid in form of normal saline in ED; we will continue with IV fluid hydration and monitor lactic acid levels - Patient has been placed back on home dose of Lantus along with NovoLog pre- meal coverage of 22 units - Monitor Accu-Cheks before meals and at bedtime with insulin sliding scale 2. Acute renal injury; dehydration - Continue with IV fluids in form of normal saline at rate of 100 mL an hour; monitor strict SUZETTE's, daily weights, renal function and electrolytes; avoid nephrotoxins and hypotension 3. Lactic acidosis/leukocytosis; likely related to dehydration; no signs of infection; we will plan to initiate sepsis workup if white blood count were lactic acid level continues to trend 4. Abdominal pain; status post recent lap rafat; doesn't seem to be any complication with surgery; we will consult surgery for evaluation 5. Hypertension; Toprol-XL 50 mg daily; Aldactone 50 mg daily 6. Hyperlipidemia; Lipitor 20 mg by mouth daily at bedtime 7. Diabetes mellitus; patient takes Farxiga 10 mg every morning, metformin thousand milligrams twice a day, Humalog 22 units subcu 3 times a day with each meal, Lantus 90 units subcu daily at bedtime; Ozempic 2 mg subcu weekly 8. Chronic atrial fibrillation; patient remains rate controlled on digoxin 250 MCG daily and Toprol-XL 50 mg daily; anticoagulated with Xarelto 20 mg daily DVT prophylaxis; SCDs/systemic anticoagulation CODE STATUS; full code
--- NOTE | 2022-11-18 10:51 | P.PN ---
Progress Note - Text Progress Note Date: 11/18/22 Patient feels well. She has no complaints of abdominal pain. On exam vital signs are stable. Abdomen soft. Incision sites are clean dry intact. Resolving hyperglycemia. Patient has been noncompliant diabetic medication. The patient will most likely discharged home today. She should follow-up with her PCP to review her diabetic medications.
[2022-11-18 11:34] LABS: HCT 28.5 % (37.2-46.3); HGB 7.9 g/dL (12.0-15.0); MCH 18.8 pg (27.0-32.0); MCHC 27.7 g/dL (32.0-37.0); MCV 67.9 fL (80.0-97.0); NRBC Per 100 WBC 0 /100 WBCS (0.0-0.0); Platelet Count 220 X 10*3/uL (140-440); RDW 23.5 % (11.5-14.5); WBC 13.29 X 10*3/uL (4.50-10.00)
[2022-11-18 11:40] VITALS: BMI 35.5
[2022-11-18 12:12] LABS: Glucose,Whole Blood 135 mg/dL (70-110)
[2022-11-18 12:15] LABS: Acanthocytes 2+; Anisocytosis (M) 2+; Basophils # (A) 0.03 X 10*3/uL (0.00-0.10); Basophils % (A) 0.2 %; Elliptocytes 2+; Eosinophils # (A) 0.11 X 10*3/uL (0.04-0.35); Eosinophils % (A) 0.8 %; Hypochromasia (M) 2+; Immature Grans, Automated 0.6 %; Lymphocytes # (A) 1.53 X 10*3/uL (0.90-5.00); Lymphocytes % (A) 11.5 %; Microcytosis (M) 3+; Neutrophils # (A) 10.34 X 10*3/uL (1.80-7.70); Neutrophils % (A) 77.9 %
[2022-11-18 17:32] LABS: Glucose,Whole Blood 208 mg/dL (70-110)
[2022-11-18] MEDS: RIVAROXABAN 20 MG TAB PO SCH (17:54)
--- NOTE | 2022-11-18 19:19 | P.PN ---
Subjective Progress Note Date: 11/18/22 67-year-old female presents for evaluation of weakness, hyperglycemia. Patient has history of diabetes. She was discharged from this hospital earlier today after having laparoscopic cholecystectomy. She has no abdominal pain. No vomiting. She's had weakness since she had returned home. She was unable to stand and called paramedics. She denies chest pain. Denies abdominal pain. Complains only of weakness and fatigue. This is nonfocal. Workup completed in ED reveals --- Atrial fibrillation rate of 76, QRS duration 109, QTC 364, no ST segment changes. Blood work reveals stable CBC 15.6, hemoglobin of 9.5, platelet count of 268, sodium 133, potassium 4.9, BUN/creatinine elevated at 47/1.48 and blood glucose of 382; acetone is negative; lactic acid elevated at 2.9 Objective - Vital Signs Vital signs: Vital Signs Temp 98.9 F 11/18/22 07:00 Pulse 53 L 11/18/22 07:00 Resp 16 11/18/22 08:00 BP 130/63 11/18/22 07:00 Pulse Ox 97 11/18/22 07:00 FiO2 Intake & Output 11/17/22 11/18/22 11/18/22 18:59 06:59 18:59 Intake Total 236 Balance 236 Weight 99.79 kg Intake: Oral 236 Other: Voiding Method Bedside Commode # Voids 3 2 - Exam GENERAL: The patient is alert and oriented x3, not in any acute distress. Well developed, well nourished. HEENT: Pupils are round and equally reacting to light. EOMI. No scleral icterus. No conjunctival pallor. Normocephalic, atraumatic. No pharyngeal erythema. No thyromegaly. CARDIOVASCULAR: S1 and S2 present. No murmurs, rubs, or gallops. PULMONARY: Chest is clear to auscultation, no wheezing or crackles. ABDOMEN: Soft, nontender, nondistended, normoactive bowel sounds. No palpable organomegaly. MUSCULOSKELETAL: No joint swelling or deformity. EXTREMITIES: No cyanosis, clubbing, or pedal edema. NEUROLOGICAL: Gross neurological examination did not reveal any focal deficits. SKIN: No rashes. - Labs CBC & Chem 7: 11/18/22 05:43 11/18/22 05:43 Labs: Abnormal Lab Results - Last 24 Hours (Table) 11/17/22 11/17/22 11/17/22 Range/Units 12:29 17:29 20:49 WBC (4.50-10.00) X 10*3/uL Hgb (12.0-15.0) g/dL Hct (37.2-46.3) % MCV (80.0-97.0) fL MCH (27.0-32.0) pg MCHC (32.0-37.0) g/dL RDW (11.5-14.5) % Carbon Dioxide (20.0-27.5) mmol/L Anion Gap (10.00-18.00) mmol/L BUN (9.0-27.0) mg/dL Est GFR (CKD-EPI)AfAm (60.0-200.0) Est GFR (CKD-EPI)NonAf (60.0-200.0) BUN/Creatinine Ratio (12.00-20.00) Ratio POC Glucose (mg/dL) 291 H 278 H 259 H (70-110) mg/dL Total Protein (6.2-8.2) g/dL Albumin (3.8-4.9) g/dL Albumin/Globulin Ratio (1.60-3.17) g/dL 11/18/22 11/18/22 11/18/22 Range/Units 05:43 05:43 08:00 WBC 13.29 H (4.50-10.00) X 10*3/uL Hgb 7.9 L (12.0-15.0) g/dL Hct 28.5 L (37.2-46.3) % MCV 67.9 L (80.0-97.0) fL MCH 18.8 L (27.0-32.0) pg MCHC 27.7 L (32.0-37.0) g/dL RDW 23.5 H (11.5-14.5) % Carbon Dioxide 28.3 H (20.0-27.5) mmol/L Anion Gap 7.70 L (10.00-18.00) mmol/L BUN 29.9 H (9.0-27.0) mg/dL Est GFR (CKD-EPI)AfAm 53.4 L (60.0-200.0) Est GFR (CKD-EPI)NonAf 46.1 L (60.0-200.0) BUN/Creatinine Ratio 24.92 H (12.00-20.00) Ratio POC Glucose (mg/dL) 185 H (70-110) mg/dL Total Protein 5.7 L (6.2-8.2) g/dL Albumin 3.4 L (3.8-4.9) g/dL Albumin/Globulin Ratio 1.48 L (1.60-3.17) g/dL Assessment and Plan Assessment: 1. Marked hyperglycemia without acidosis - Acetone is negative with a CO2 about 25; patient has elevated lactic acid level of 2.9 likely related to dehydration - Patient was hydrated with 1 L of IV fluid in form of normal saline in ED; we will continue with IV fluid hydration and monitor lactic acid levels - Patient has been placed back on home dose of Lantus along with NovoLog pre- meal coverage of 22 units - Monitor Accu-Cheks before meals and at bedtime with insulin sliding scale 2. Acute renal injury; dehydration - Continue with IV fluids in form of normal saline at rate of 100 mL an hour; monitor strict SUZETTE's, daily weights, renal function and electrolytes; avoid nephrotoxins and hypotension 3. Lactic acidosis/leukocytosis; likely related to dehydration; no signs of infection; we will plan to initiate sepsis workup if white blood count were lactic acid level continues to trend 4. Abdominal pain; status post recent lap rafat; doesn't seem to be any complication with surgery; we will consult surgery for evaluation 5. Hypertension; Toprol-XL 50 mg daily; Aldactone 50 mg daily 6. Hyperlipidemia; Lipitor 20 mg by mouth daily at bedtime 7. Diabetes mellitus; patient takes Farxiga 10 mg every morning, metformin thousand milligrams twice a day, Humalog 22 units subcu 3 times a day with each meal, Lantus 90 units subcu daily at bedtime; Ozempic 2 mg subcu weekly 8. Chronic atrial fibrillation; patient remains rate controlled on digoxin 250 MCG daily and Toprol-XL 50 mg daily; anticoagulated with Xarelto 20 mg daily DVT prophylaxis; SCDs/systemic anticoagulation CODE STATUS; full code
[2022-11-18 20:31] LABS: Glucose,Whole Blood 206 mg/dL (70-110)
[2022-11-18] MEDS: ATORVASTATIN 20 MG TAB PO SCH (20:43)
[2022-11-18] MEDS: PANTOPRAZOLE 40 MG TABLET PO SCH (20:43)
[2022-11-18] MEDS: INSULIN DETEMIR (LEVEMIR) 100 UNIT/ML SYR SQ SCH (20:44)
[2022-11-19] MEDS: SODIUM CHLORIDE 0.9% 1,000 ML IV SCH ×3 (03:39→23:30)
[2022-11-19 06:00] LABS: Glucose,Whole Blood 163 mg/dL (70-110)
[2022-11-19] MEDS: INSULIN ASPART (NovoLOG) 100 UNIT/ML VIAL SQ SCH ×7 (06:03→21:23)
[2022-11-19] MEDS: metFORMIN 500 MG TAB PO SCH ×2 (06:03→17:58)
[2022-11-19] MEDS: GABAPENTIN PO SCH (08:13)
[2022-11-19] MEDS: DIGOXIN 250 MCG TAB PO SCH (08:17)
[2022-11-19] MEDS: allopurinoL 300 MG TAB PO SCH (08:18)
[2022-11-19] MEDS: SPIRONOLACTONE 25 MG TAB PO SCH (08:18)
[2022-11-19] MEDS: oxyBUTYnin chloride 5 MG TAB PO SCH (08:18)
[2022-11-19] MEDS: POTASSIUM CHLORIDE ER 10 MEQ TAB.ER.PRT PO SCH (08:18)
[2022-11-19] MEDS: FUROSEMIDE 40 MG TAB PO SCH (08:18)
[2022-11-19] MEDS: METOPROLOL SUCCINATE (ER) 50 MG TAB.ER.24H PO SCH ×2 (08:18→09:09)
[2022-11-19] MEDS: FENOFIBRATE 160 MG TAB PO SCH (08:18)
[2022-11-19] MEDS: DAPAGLIFLOZIN PROPANEDIOL 10 MG TABLET PO SCH (08:18)
--- NOTE | 2022-11-19 09:53 | P.PN ---
Progress Note - Text Progress Note Date: 11/19/22 Patient feels unsteady on her feet secondary to a neuropathy. She denies any abdominal pain. On exam vital signs are stable. Abdomen soft. Resolving hyperglycemia. Patient will be medically managed. There is no surgical intervention planned.
[2022-11-19 12:24] LABS: Glucose,Whole Blood 183 mg/dL (70-110)
--- NOTE | 2022-11-19 13:32 | CT ---
EXAMINATION TYPE: CT brain wo con DATE OF EXAM: 11/19/2022 HISTORY: fall. Headache after fall injury. CT DLP: 1165 mGycm. Automated Exposure Control for Dose Reduction was Utilized. TECHNIQUE: CT scan of the head is performed without contrast. COMPARISON: None. FINDINGS: There is no acute intracranial hemorrhage or midline shift identified. There is mild diff use ventricular and sulcal prominence consistent with diffuse age-related cerebral atrophy. There is mild low-attenuation in the periventricular white matter consistent with chronic small vessel ischem ic change. The calvarium is intact. The globes are intact and the visualized sinuses are clear. IMPRESSION: No acute intracranial hemorrhage or midline shift. There is mild diffuse age-related ce rebral atrophy and chronic small vessel ischemic change noted.
[2022-11-19] MEDS: PREGABALIN 150 MG PO SCH ×2 (14:03→21:44)
--- NOTE | 2022-11-19 17:09 | P.PN ---
Subjective Progress Note Date: 11/19/22 67-year-old female presents for evaluation of weakness, hyperglycemia. Patient has history of diabetes. She was discharged from this hospital earlier today after having laparoscopic cholecystectomy. She has no abdominal pain. No vomiting. She's had weakness since she had returned home. She was unable to stand and called paramedics. She denies chest pain. Denies abdominal pain. Complains only of weakness and fatigue. This is nonfocal. Workup completed in ED reveals --- Atrial fibrillation rate of 76, QRS duration 109, QTC 364, no ST segment changes. Blood work reveals stable CBC 15.6, hemoglobin of 9.5, platelet count of 268, sodium 133, potassium 4.9, BUN/creatinine elevated at 47/1.48 and blood glucose of 382; acetone is negative; lactic acid elevated at 2.9 11/19/2022 Patient is seen and evaluated and discussed with nursing staff; patient's family has reported a fall prior to admission with patient hitting her head; family is concerned of head injury resulting in excessive weakness Vital signs are reviewed and stable with temperature of 98.2, pulse 63, respirations 16 and blood pressure of 147/72 and O2 saturation of 98% on room air -- Blood glucose is improved and ranging between 135-183 - We will order stat CT of the head without contrast - PT/OT consulted for discharge recommendations Objective - Vital Signs Vital signs: Vital Signs Temp 98.2 F 11/19/22 07:00 Pulse 63 11/19/22 07:00 Resp 16 11/19/22 07:00 BP 147/72 11/19/22 07:00 Pulse Ox 98 11/19/22 07:00 FiO2 Intake & Output 11/18/22 11/19/22 11/19/22 18:59 06:59 18:59 Intake Total 236 Balance 236 Weight 99.79 kg Intake: Oral 236 Other: Voiding Method Bedside Commode # Voids 4 3 # Bowel Movements 1 1 - Exam GENERAL: The patient is alert and oriented x3, not in any acute distress. Well developed, well nourished. HEENT: Pupils are round and equally reacting to light. EOMI. No scleral icterus. No conjunctival pallor. Normocephalic, atraumatic. No pharyngeal erythema. No thyromegaly. CARDIOVASCULAR: S1 and S2 present. No murmurs, rubs, or gallops. PULMONARY: Chest is clear to auscultation, no wheezing or crackles. ABDOMEN: Soft, nontender, nondistended, normoactive bowel sounds. No palpable organomegaly. MUSCULOSKELETAL: No joint swelling or deformity. EXTREMITIES: No cyanosis, clubbing, or pedal edema. NEUROLOGICAL: Gross neurological examination did not reveal any focal deficits. SKIN: No rashes. - Labs CBC & Chem 7: 11/18/22 05:43 11/18/22 05:43 Labs: Abnormal Lab Results - Last 24 Hours (Table) 11/18/22 11/18/22 11/18/22 Range/Units 05:43 05:43 12:10 WBC 13.29 H (4.50-10.00) X 10*3/uL Hgb 7.9 L (12.0-15.0) g/dL Hct 28.5 L (37.2-46.3) % MCV 67.9 L (80.0-97.0) fL MCH 18.8 L (27.0-32.0) pg MCHC 27.7 L (32.0-37.0) g/dL RDW 23.5 H (11.5-14.5) % Immature Gran # 0.08 H (0.00-0.04) X 10*3/uL Neutrophils # 10.34 H (1.80-7.70) X 10*3/uL Monocytes # 1.20 H (0.20-1.00) X 10*3/uL Carbon Dioxide 28.3 H (20.0-27.5) mmol/L Anion Gap 7.70 L (10.00-18.00) mmol/L BUN 29.9 H (9.0-27.0) mg/dL Est GFR (CKD-EPI)AfAm 53.4 L (60.0-200.0) Est GFR (CKD-EPI)NonAf 46.1 L (60.0-200.0) BUN/Creatinine Ratio 24.92 H (12.00-20.00) Ratio POC Glucose (mg/dL) 135 H (70-110) mg/dL Total Protein 5.7 L (6.2-8.2) g/dL Albumin 3.4 L (3.8-4.9) g/dL Albumin/Globulin Ratio 1.48 L (1.60-3.17) g/dL 11/18/22 11/18/22 11/19/22 Range/Units 17:30 20:30 05:58 WBC (4.50-10.00) X 10*3/uL Hgb (12.0-15.0) g/dL Hct (37.2-46.3) % MCV (80.0-97.0) fL MCH (27.0-32.0) pg MCHC (32.0-37.0) g/dL RDW (11.5-14.5) % Immature Gran # (0.00-0.04) X 10*3/uL Neutrophils # (1.80-7.70) X 10*3/uL Monocytes # (0.20-1.00) X 10*3/uL Carbon Dioxide (20.0-27.5) mmol/L Anion Gap (10.00-18.00) mmol/L BUN (9.0-27.0) mg/dL Est GFR (CKD-EPI)AfAm (60.0-200.0) Est GFR (CKD-EPI)NonAf (60.0-200.0) BUN/Creatinine Ratio (12.00-20.00) Ratio POC Glucose (mg/dL) 208 H 206 H 163 H (70-110) mg/dL Total Protein (6.2-8.2) g/dL Albumin (3.8-4.9) g/dL Albumin/Globulin Ratio (1.60-3.17) g/dL Assessment and Plan Assessment: 1. Marked hyperglycemia without acidosis - Acetone is negative with a CO2 about 25; patient has elevated lactic acid level of 2.9 likely related to dehydration - Patient was hydrated with 1 L of IV fluid in form of normal saline in ED; we will continue with IV fluid hydration and monitor lactic acid levels - Patient has been placed back on home dose of Lantus along with NovoLog pre- meal coverage of 22 units - Monitor Accu-Cheks before meals and at bedtime with insulin sliding scale 2. Acute renal injury; dehydration - Continue with IV fluids in form of normal saline at rate of 100 mL an hour; monitor strict SUZETTE's, daily weights, renal function and electrolytes; avoid nep hrotoxins and hypotension 3. Lactic acidosis/leukocytosis; likely related to dehydration; no signs of infection; we will plan to initiate sepsis workup if white blood count were lactic acid level continues to trend 4. Abdominal pain; status post recent lap rafat; doesn't seem to be any complication with surgery; we will consult surgery for evaluation 5. Hypertension; Toprol-XL 50 mg daily; Aldactone 50 mg daily 6. Hyperlipidemia; Lipitor 20 mg by mouth daily at bedtime 7. Diabetes mellitus; patient takes Farxiga 10 mg every morning, metformin thousand milligrams twice a day, Humalog 22 units subcu 3 times a day with each meal, Lantus 90 units subcu daily at bedtime; Ozempic 2 mg subcu weekly 8. Chronic atrial fibrillation; patient remains rate controlled on digoxin 250 MCG daily and Toprol-XL 50 mg daily; anticoagulated with Xarelto 20 mg daily DVT prophylaxis; SCDs/systemic anticoagulation CODE STATUS; full code
[2022-11-19 17:57] LABS: Glucose,Whole Blood 173 mg/dL (70-110)
[2022-11-19] MEDS: RIVAROXABAN 20 MG TAB PO SCH (17:58)
[2022-11-19] MEDS ORDERED: AMITRIPTYLINE 10 MG TAB PO SCH (21:00)
[2022-11-19 21:15] LABS: Glucose,Whole Blood 136 mg/dL (70-110)
[2022-11-19] MEDS: PANTOPRAZOLE 40 MG TABLET PO SCH (21:44)
[2022-11-19] MEDS: ATORVASTATIN 20 MG TAB PO SCH (21:44)
[2022-11-19] MEDS: INSULIN DETEMIR (LEVEMIR) 100 UNIT/ML SYR SQ SCH (21:46)
[2022-11-20] MEDS: SODIUM CHLORIDE 0.9% 1,000 ML IV SCH (06:08)
[2022-11-20 06:18] LABS: Glucose,Whole Blood 109 mg/dL (70-110)
[2022-11-20] MEDS: INSULIN ASPART (NovoLOG) 100 UNIT/ML VIAL SQ SCH ×3 (06:18→12:57)
[2022-11-20] MEDS: PREGABALIN 150 MG PO SCH ×2 (06:26→13:04)
[2022-11-20 08:24] VITALS: BP 146/66; PULSE 57; RESP 17; TEMP 98.1
[2022-11-20] MEDS: DIGOXIN 250 MCG TAB PO SCH (09:03)
[2022-11-20] MEDS: oxyBUTYnin chloride 5 MG TAB PO SCH (09:03)
[2022-11-20] MEDS: metFORMIN 500 MG TAB PO SCH (09:03)
[2022-11-20] MEDS: POTASSIUM CHLORIDE ER 10 MEQ TAB.ER.PRT PO SCH (09:03)
[2022-11-20] MEDS: allopurinoL 300 MG TAB PO SCH (09:03)
[2022-11-20] MEDS: SPIRONOLACTONE 25 MG TAB PO SCH (09:03)
[2022-11-20] MEDS: FENOFIBRATE 160 MG TAB PO SCH (09:03)
[2022-11-20] MEDS: FUROSEMIDE 40 MG TAB PO SCH (09:04)
[2022-11-20] MEDS: METOPROLOL SUCCINATE (ER) 50 MG TAB.ER.24H PO SCH (09:04)
[2022-11-20] MEDS: DAPAGLIFLOZIN PROPANEDIOL 10 MG TABLET PO SCH (09:07)
[2022-11-20 11:18] LABS: Anisocytosis Moderate; Basophils % (A) 0 %; Eosinophils # (A) 0.2 k/uL (0-0.7); Eosinophils % (A) 3 %; HCT 28.8 % (34.0-46.0); HGB 8.1 gm/dL (11.4-16.0); Hypochromasia Marked; Lymphocytes # (A) 1.4 k/uL (1.0-4.8); Lymphocytes % (A) 17 %; MCH 18.5 pg (25.0-35.0); MCHC 28.1 g/dL (31.0-37.0); MCV 65.7 fL (80.0-100.0); Mean Platelet Volume 7.5; Microcytosis Marked; Monocytes # (A) 0.5 k/uL (0-1.0); Monocytes % (A) 6 %; Neutrophils # (A) 5.5 k/uL (1.3-7.7); Neutrophils % (A) 70 %; Platelet Count 228 k/uL (150-450); Poikilocytosis Slight; RBC 4.39 m/uL (3.80-5.40); RDW 20.9 % (11.5-15.5); WBC 7.9 k/uL (3.8-10.6)
[2022-11-20 11:34] LABS: African American GFR (CKD) 74 (>60 ml/min/1.73 sqM); Anion Gap 8 mmol/L; Blood Urea Nitrogen 22 mg/dL (7-17); Calcium 8.9 mg/dL (8.4-10.2); Carbon Dioxide 28 mmol/L (22-30); Chloride 103 mmol/L (98-107); Glucose 114 mg/dL (74-99); Non-African American GFR(CKD) 65 (>60 ml/min/1.73 sqM); Potassium 4.3 mmol/L (3.5-5.1); Sodium 139 mmol/L (137-145)
[2022-11-20] MEDS ORDERED: INSULIN ASPART (NovoLOG) 100 UNIT/ML VIAL SQ SCH (12:30)
[2022-11-20 12:55] LABS: Glucose,Whole Blood 107 mg/dL (70-110)
--- NOTE | 2022-11-20 13:23 | P.PN ---
Subjective Progress Note Date: 11/20/22 CHIEF COMPLAINT: Recent lap cholecystectomy HISTORY OF PRESENT ILLNESS: Patient denies any abdominal pain. Denies any nausea or vomiting. She is tolerating diet. She is having flatus. She did have elevated blood sugars. Blood sugar has improved. She is followed by medicine service. They are planning discharge today. PHYSICAL EXAM: VITAL SIGNS: Reviewed. GENERAL: Well-developed in no acute distress. ABDOMEN: Soft. Nondistended. Nontender. NEUROLOGIC: Alert and oriented. Cranial nerves II through XII grossly intact. ASSESSMENT: 1. Recent laparoscopic cholecystectomy 2. Hyperglycemia PLAN: -Patient can be discharged from surgical standpoint -Diabetes management per medicine service Physician Supervisor Respiratory note has been reviewed by physician. Signing provider agrees with the documented findings, assessment, and plan of care. Objective - Vital Signs Vital signs: Vital Signs Temp 98.1 F 11/20/22 07:25 Pulse 57 L 11/20/22 07:25 Resp 17 11/20/22 07:25 BP 146/66 11/20/22 07:25 Pulse Ox 100 11/20/22 07:25 FiO2 Intake & Output 11/19/22 11/20/22 11/20/22 18:59 06:59 18:59 Intake Total 677 118 Balance 677 118 Intake: Oral 677 118 Other: Voiding Method Bedside Commode # Voids 2 3 1 # Bowel Movements 1 1 - Labs CBC & Chem 7: 11/20/22 10:46 11/20/22 10:46 Labs: Abnormal Lab Results - Last 24 Hours (Table) 11/19/22 11/19/22 11/20/22 Range/Units 17:55 21:14 10:46 Hgb 8.1 L (11.4-16.0) gm/dL Hct 28.8 L (34.0-46.0) % MCV 65.7 L (80.0-100.0) fL MCH 18.5 L (25.0-35.0) pg MCHC 28.1 L (31.0-37.0) g/dL RDW 20.9 H (11.5-15.5) % BUN (7-17) mg/dL Glucose (74-99) mg/dL POC Glucose (mg/dL) 173 H 136 H (70-110) mg/dL 11/20/22 Range/Units 10:46 Hgb (11.4-16.0) gm/dL Hct (34.0-46.0) % MCV (80.0-100.0) fL MCH (25.0-35.0) pg MCHC (31.0-37.0) g/dL RDW (11.5-15.5) % BUN 22 H (7-17) mg/dL Glucose 114 H (74-99) mg/dL POC Glucose (mg/dL) (70-110) mg/dL
--- NOTE | 2022-11-22 23:45 | P.DS ---
Providers Date of admission: 11/19/22 08:54 Attending physician: Dina Samaniego Consults: 11/17/22 01:20 Consult Physician Routine Consulting Provider: Nirmal Guillory Consult Reason/Comments: post op rafat Do you want consulting provider notified?: Yes Primary care physician: Zoei Moore Hospital Course: Final Diagnosis Generalized weakness and fall at home Marked hyperglycemia without acidosis Abdominal pain; status post recent lap rafat Acute renal injury; dehydration Lactic acidosis/leukocytosis; likely related to dehydration; no signs of infection Hypertension Hyperlipidemia Diabetes mellitus Chronic atrial fibrillation anticoagulated with xarelto Discharge Disposition Patient is stable for discharge home and recommended to resume all appropriate home medications. Aldactone has been held and instructed patient to resume in a few days. Patient to see Dr. Zoie Moore in 1 to 2 days. Has follow up with Dr. Guillory on November 27. Hospital Course 67-year-old female presents for evaluation of weakness, hyperglycemia. Patient has history of diabetes. Patient underwent laproscopic cholecystecomty on 11/16 and ws discharged home the same day. Denies abdominal pain, no vomiting. She's had weakness since she had returned home. She was unable to stand and called paramedics. Complains only of weakness and fatigue. No chest pain, no dizziness or lightheadedness, no syncopal episode. This is nonfocal. Patient also had fallen at home and hit head prior to the previous admission. Initial work up reveals atrial fibrillation with controlled rate on EKG, Patient had a white count of 15.6, sodium of 133, creatinine 1.48, blood glucose of 382, with lactic acid of 2.9. patient had a brain CT done which was negative for acute intracraniall hemorrhage or midline shift. There is mild diffuse age-related cerebral atrophy and chronic small vessel ischemic change noted. On prior admission, patient was discharged on home medications including aldactone and lasix and patient had been increasing diet on day of discharge. Passing gas and has bowel movement since surgery. Patient was hydrated and labs normalized, sodium is now 139, creatinine normal at 0.91, white count is down to 7.9. Sandrita ent was also evaluated by general surgeon. Patient has been discharged home with close follow up with PCP and surgery. Denies chest pain, no shortness of breath, no nausea vomiting or diarrhea. Worked with PT and cleared to return home on discharge. Please see medication reconciliation for a list of current medication. Thank you for allowing us to participate in the care of this patient. The impression and plan of care has been dictated by Rina Healy, Nurse Practitioner as directed. Dr. Devi MD I have performed a history and physical examination and medical decision making of this patient, discussed the same with the dictator, and agree with the dictators assessment and plan as written, documented as a scribe. Based on total visit time, I have performed more than 50% of this visit. Patient Condition at Discharge: Stable Plan - Discharge Summary Discharge Rx Participant: No New Discharge Prescriptions: Continue Omeprazole 20 mg PO HS Rivaroxaban [Xarelto] 20 mg PO W/SUPPER Potassium Chloride [K-Tab ER] 20 meq PO BID allopurinoL [Zyloprim] 300 mg PO DAILY metFORMIN HCL [Glucophage] 1,000 mg PO BID Digoxin 250 mcg PO DAILY Dapagliflozin Propanediol [Farxiga] 10 mg PO DAILY Metoprolol Succinate (ER) [Toprol XL] 50 mg PO DAILY oxyBUTYnin chloride [Ditropan] 5 mg PO DAILY Cholecalciferol [Vitamin D3 (25 Mcg = 1000 Iu)] 25 mcg PO DAILY Fenofibrate Nanocrystallized [Fenofibrate] 145 mg PO DAILY Insulin Glargine,Hum.rec.anlog [Lantus Solostar Pen] 90 unit SQ HS Semaglutide [Ozempic] 2 mg SQ Q7D Furosemide [Lasix] 40 mg PO DAILY Pregabalin [Lyrica] 150 mg PO TID Atorvastatin [Lipitor] 20 mg PO HS Amitriptyline HCl [Elavil] 10 mg PO HS Changed Insulin Aspart [NovoLOG Flexpen] 15 units SQ AC-TID #0 Discontinued Spironolactone [Aldactone] 50 mg PO DAILY Discharge Medication List Omeprazole 20 mg PO HS 06/04/16 [History] Potassium Chloride [K-Tab ER] 20 meq PO BID 06/04/16 [History] Rivaroxaban [Xarelto] 20 mg PO W/SUPPER 06/04/16 [History] allopurinoL [Zyloprim] 300 mg PO DAILY 06/04/16 [History] Dapagliflozin Propanediol [Farxiga] 10 mg PO DAILY 04/29/20 [History] Digoxin 250 mcg PO DAILY 04/29/20 [History] metFORMIN HCL [Glucophage] 1,000 mg PO BID 04/29/20 [History] Atorvastatin [Lipitor] 20 mg PO HS 09/03/22 [History] Cholecalciferol [Vitamin D3 (25 Mcg = 1000 Iu)] 25 mcg PO DAILY 09/03/22 [History] Fenofibrate Nanocrystallized [Fenofibrate] 145 mg PO DAILY 09/03/22 [History] Insulin Glargine,Hum.rec.anlog [Lantus Solostar Pen] 90 unit SQ HS 09/03/22 [History] Metoprolol Succinate (ER) [Toprol XL] 50 mg PO DAILY 09/03/22 [History] oxyBUTYnin chloride [Ditropan] 5 mg PO DAILY 09/03/22 [History] Semaglutide [Ozempic] 2 mg SQ Q7D 11/16/22 [History] Furosemide [Lasix] 40 mg PO DAILY 11/17/22 [History] Pregabalin [Lyrica] 150 mg PO TID 11/17/22 [History] Amitriptyline HCl [Elavil] 10 mg PO HS 11/19/22 [History] Insulin Aspart [NovoLOG Flexpen] 15 units SQ AC-TID #0 11/20/22 [Rx] Follow up Appointment(s)/Referral(s): Zoie Moore DO [Primary Care Provider] - 1-2 days Nirmal Guillory MD [STAFF PHYSICIAN] - 11/27/22 3:15 pm Patient Instructions/Handouts: *Surgery [facility] - Laparoscopic Cholecystectomy Discharge Instructions Activity/Diet/Wound Care/Special Instructions: Recommend to hold lasix for 1 to 2 days on discharge Recommend to repeat labs in 2 to 3 days Continue to increase oral intake. If experiencing edema than resume lasix tomorrow. Follow up with your PCP Dr. Zoie Moore in 2 to 3 days Follow up with Surgeon Dr. Guillory in 1 week Continue to monitor blood glucose at home 3 times a day and monitor for signs of hypoglycemia, blood glucose is improving and patient is now normal. Recommending decreasing meal time insulin to 15 units TID to avoid hypoglycemia. Discharge Disposition: HOME SELF-CARE
== END 2022-11-20 15:34 | disposition home or self-care (01) | DRG 638 ==
LOC: EC 23:52 → 6NMEDSUR 11-17 01:21 → OBSVTOIN 11-19 08:54
PROVIDERS: ADMIT Hospitalist; ATTEND Hospitalist
DX: E11.65 Type 2 diabetes mellitus with hyperglycemia (principal); E87.20 Acidosis, unspecified; N17.9 Acute kidney failure, unspecified; I48.20 Chronic atrial fibrillation, unspecified; E11.42 Type 2 diabetes mellitus with diabetic polyneuropathy; I10 Essential (primary) hypertension; E78.5 Hyperlipidemia, unspecified; E86.0 Dehydration; Z96.653 Presence of artificial knee joint, bilateral; W19.XXXA Unspecified fall, initial encounter; Y92.009 Unspecified place in unspecified non-institutional (private) residence as the place of occurrence of the external cause; I25.10 Atherosclerotic heart disease of native coronary artery without angina pectoris; Z79.899 Other long term (current) drug therapy; Z79.84 Long term (current) use of oral hypoglycemic drugs; Z79.01 Long term (current) use of anticoagulants; Z79.4 Long term (current) use of insulin; Z79.891 Long term (current) use of opiate analgesic; Z98.890 Other specified postprocedural states; Z79.85 Long-term (current) use of injectable non-insulin antidiabetic drugs; Z90.49 Acquired absence of other specified parts of digestive tract
CPT/HCPCS: 36415; 70450; 80048; 80053; 81001; 82009; 83605; 83735; 85025; 93005; 96360; 96361; 99285

== ENCOUNTER → 2023-02-05 | Outpatient (CLI) | payer MEDICARE ==
[~2023-02-05] MED LIST changes: -ACETAMINOPHEN TAB 500 MG TAB PO PRN; -DEXAMETHASONE SOD PHOSPHATE 4 MG/ML 1 ML VIAL IV ONE; -HEPARIN SODIUM,PORCINE/PF 5,000 UNIT/0.5 ML SYRINGE SQ PRN; -HYDROmorphone 0.5 MG/0.5 ML SYRINGE IVP PRN; +IRON SUCROSE 200 MG in SODIUM CHLORIDE 0.9% 100 ML IVPB NR; -LACTATED RINGERS 1,000 ML IV SCH; -MIDAZOLAM 2 MG/2 ML VIAL IV PRN; -ONDANSETRON 4 MG/2 ML VIAL IVP ONE; +SODIUM CHLORIDE 0.9% 500 ML 500 ML in EMPTY BAG 1 BAG IV PRN
[2023-02-05 11:24] VITALS: BP 113/63; PULSE 79; RESP 16; TEMP 97.7
== END ==
LOC: PROCWHC3 10:48
PROVIDERS: ATTEND Family Medicine
DX: D50.9 Iron deficiency anemia, unspecified (principal)
CPT/HCPCS: 96365; J1756

== ENCOUNTER 2023-03-08 05:50 | Day surgery (SDC) | payer MEDICARE, OTHER ==
[2023-03-07 15:42] VITALS: BMI 37.1
[2023-03-08] MEDS ORDERED: NITROGLYCERIN SL TABS 0.4 MG TAB SUBLINGUAL PRN ×2 (06:10→10:24)
[2023-03-08] MEDS ORDERED: ALPRAZolam 0.5 MG TAB PO PRN (06:10)
[2023-03-08] MEDS ORDERED: ALPRAZolam 0.25 MG TAB PO PRN (06:10)
[2023-03-08] MEDS ORDERED: ASPIRIN 325 MG TAB PO ONE (06:10)
[2023-03-08] MEDS: SODIUM CHLORIDE 0.9% 1,000 ML in EMPTY BAG 1 BAG IV SCH ×2 (06:23→16:35)
[2023-03-08 06:31] LABS: Glucose,Whole Blood 138 mg/dL (70-110)
[2023-03-08 06:46] LABS: African American GFR (CKD) 89 (>60 ml/min/1.73 sqM); Anion Gap 7 mmol/L; Blood Urea Nitrogen 26 mg/dL (7-17); Calcium 10.4 mg/dL (8.4-10.2); Carbon Dioxide 29 mmol/L (22-30); Chloride 101 mmol/L (98-107); Glucose 131 mg/dL (74-99); Non-African American GFR(CKD) 77 (>60 ml/min/1.73 sqM); Potassium 4.7 mmol/L (3.5-5.1); Sodium 137 mmol/L (137-145)
[2023-03-08] MEDS ORDERED: HEPARIN SODIUM,PORCINE 10,000 UNIT in SODIUM CHLORIDE 0.9% 1,000 ML IRRIGATION PRN (07:00)
[2023-03-08] MEDS ORDERED: HEPARIN SODIUM,PORCINE (1 ML) 2,500 UNIT in SODIUM CHLORIDE 0.9% 250 ML IRRIGATION PRN (07:00)
[2023-03-08 07:08] LABS: Anisocytosis Moderate; Basophils % (A) 0 %; Eosinophils # (A) 0.3 k/uL (0-0.7); Eosinophils % (A) 4 %; HCT 34.6 % (34.0-46.0); HGB 10.6 gm/dL (11.4-16.0); Hypochromasia Marked; Lymphocytes # (A) 2.3 k/uL (1.0-4.8); Lymphocytes % (A) 30 %; MCH 22.4 pg (25.0-35.0); MCHC 30.6 g/dL (31.0-37.0); MCV 73.2 fL (80.0-100.0); Mean Platelet Volume 8.7; Microcytosis Marked; Monocytes # (A) 0.4 k/uL (0-1.0); Monocytes % (A) 6 %; Neutrophils # (A) 4.4 k/uL (1.3-7.7); Neutrophils % (A) 58 %; Platelet Count 233 k/uL (150-450); RBC 4.73 m/uL (3.80-5.40); RDW 21.9 % (11.5-15.5); WBC 7.5 k/uL (3.8-10.6)
[2023-03-08] MEDS: fentaNYL (PF) 50 MCG/1 ML VIAL IVP ONE ×2 (07:55→09:05)
[2023-03-08] MEDS: MIDAZOLAM 2 MG/2 ML VIAL IVP ONE ×4 (07:55→09:49)
[2023-03-08] MEDS ORDERED: LIDOCAINE 1% INJ 10MG/ML (20 ML MDV) SQ ONE (07:56)
[2023-03-08] MEDS ORDERED: VERAPAMIL SYRINGE (5 MG/10 ML) INTRAARTER ONE (07:58)
[2023-03-08] MEDS: HEPARIN SODIUM 1,000 UN/ML (10ML VL) IV ONE ×4 (08:19→10:05)
[2023-03-08 08:30] LABS: O2 Sat Blood Gas 61.3 %
[2023-03-08 08:30] LABS: O2 Sat Blood Gas 84.9 %
[2023-03-08] MEDS ORDERED: CLOPIDOGREL 75 MG TAB PO ONE (08:44)
[2023-03-08] MEDS ORDERED: IOPAMIDOL-370 100ML BTL INJ ONE ×4 (08:45→10:14)
--- NOTE | 2023-03-08 09:06 | P.CARDCATH ---
Date of Procedure: 03/08/23 Description of Procedure: DIAGNOSTIC CORONARY ANGIOGRAPHY, RIGHT and LEFT HEART CATH REPORT PROCEDURES PERFORMED: Left heart catheterization Right heart catheterization Selective coronary angiography Moderate conscious sedation 40 mins Right radial access INDICATION: Positive stress test and shortness of breath Patient is a 67-year-old female who presented to the clinic with worsening shortness of breath and reduced exercise tolerance. She had an outpatient nuc lear stress test which showed fixed anterior wall perfusion defect with an EF of 40%. She also has risk factors for coronary artery disease which includes obesity, diabetes type 2, and hyperlipidemia. Due to her shortness of breath and low ejection fraction, she was scheduled for an outpatient right heart and left heart catheterization. CONSENT: I have discussed the risks, benefits and alternative therapies for the above-mentioned procedure, sedation/analgesia and necessary blood product administration (if indicated, as they pertain to this patient). The patient has indicated understanding and acceptance of the risks and procedures discussed. Conscious Sedation: Patient's ECG, heart rate, blood pressure, pulse oximetry was monitored throughout the duration of procedure under the direct supervision. [1] mg Versed and [50] mg Fentanyl were used for induction of moderate conscious sedation. Total duration of 40 minutes. PROCEDURE:After the risks, benefits and alternatives of the above mentioned procedure explained in detail with the patient, informed consent was obtained. Patient was taken to the catheterization lab and prepped and draped in usual sterile fashion. 1% lidocaine was infiltrated over the right radial artery and right antecubital vein. A 6-Gibraltarian sheath was placed in the right radial artery using modified Seldinger technique. A 6-Gib[place]tarian sheath was inserted in the right cephalic vein. A 6-[place] catheter was advanced with a venous sheath and right heart catheterization was performed. Sequential pressures were obtained from Reche, pulmonary artery, right ventricle and right atrium. Goldie study was performed using pulmonary artery saturation and arterial saturation The sheath was flushed 5 mg verapamil was administered intra-arterially. J tipped wire was advanced under fluoroscopic guidance. Once the wire tip reached aortic root [6000] units of IV heparin was given. Over the wire JL3.5 diagnostic catheter was advanced. Wire was removed, catheter was flushed and manipulated under fluoroscopy to selectively engaged the left coronary ostium. Left coronary angioplasty was performed in different angiographic projections. This catheter was exchanged for a JR4 diagnostic catheter over the wire. The catheter was flushed and manipulated to cross the aortic valve. LV pressures were obtained. Pullback was performed across aortic valve and catheter was manipulated to selectively engage the right coronary ostium under fluoroscopic guidance. Right coronary angiography was performed in different angiographic projections. Catheter was removed over the wire. Radial sheath was flushed. The right radial sheath was removed and a TR band was placed with excellent patent hemostasis was achieved. The patient tolerated the procedure well. Patient was transported back to the post catheterization holding area in stable condition. Angiographic images were reviewed in detail. Case was discussed with toddler teacher and decision was made to proceed with intervention for the mid LAD. The JR catheter was removed, and the wire was left in place. 2.5 mg verapamil was administered in the right radial sheath and the sheath was flushed. The antecubital venous sheath was removed and pressure was held. 1 mg Versed and 25 mg of fentanyl was administered after the case why patient was sating further intervention to be done. HEMODYNAMICS: Aortic Pressure: 135/45 mmHg. LV pressure: 135/5 mmHg. LVEDP 15 mmHg. Mean RA pressure 12 mmHg RV pressure 46/8 mmHg. RVEDP 14 mmHg PA pressures 44/90 mmHg, mean PA pressure 28 mmHg Mean wedge pressure 19 mmHg Hemoglobin 10.6 Pulmonary artery saturation 61.3% Radial arterial saturation 84.9% Goldie cardiac output 8.13 L/m Goldie cardiac index 3.84 L/m/m SELECTIVE CORONARY ARTERIOGRAPHY: LEFT MAIN: The left main is a large caliber vessel which bifurcates into the LAD and circumflex. There is no significant stenosis. It appears angiographically normal LEFT ANTERIOR DESCENDING CORONARY ARTERY: LAD is a large caliber vessel which wraps around to the apex. Proximal LAD has mild luminal irregularities. It gives a small diagonal 1 branch which is diffuse disease. Mid LAD just after giving diagonal 2 branch has diffuse long segment of 90% disease approx measuring 30-32 mm in length. Diagonal 2 is a medium-sized vessel and appears angiographically normal. Distal LAD is small-caliber and appears angiographic normal with mild luminal irregularities. LEFT CIRCUMFLEX CORONARY ARTERY: It is nondominant vessel. LCx is a large caliber vessel approximately 4.5 mm. It gives 4 small size OM branches approximately 2 mm. LCx and all branches are angiographically normal with 10- 20% mild luminal irregularities. RIGHT CORONARY ARTERY: Dominant vessel. The right coronary artery is a large caliber vessel which gives off a PDA and PLV branch. It appears angiographically normal with 10-20% mild luminal irregularities. Ostial PLV branch has 20% disease. IMPRESSION: 90% long diffuse disease in the LAD Diffuse disease in the small diagonal 1 Minimal luminal irregularities and other coronary distribution Normal LVEDP Mildly elevated wedge pressure Ischemic cardiomyopathy with LVEF 40% Persistent atrial fibrillation Positive nuclear stress test in anterior wall PLAN: Plan for PCI of mid LAD. Case discussed with toddler teacher Patient is on Xarelto. Would recommend triple therapy for first 1-2 months based on patient's tolerability. Heart hemoglobin is in the lower side of 10.6 Follow-up with me in clinic in next 1 week Patient's son was updated about the findings and the procedure by a phone Performing Physician Sorin Cabrales MD
[2023-03-08] MEDS ORDERED: HEPARIN SODIUM 1,000 UN/ML (10ML VL) IV ONE (10:19)
[2023-03-08] MEDS ORDERED: ATROPINE SULFATE 0.1 MG/ML 10ML SYRINGE IV PRN (10:24)
[2023-03-08] MEDS ORDERED: ZOLPIDEM 5 MG TAB PO PRN (10:24)
[2023-03-08] MEDS ORDERED: MAG HYDROX/AL HYDROX/SIMETH 30 ML CUP PO PRN (10:24)
[2023-03-08] MEDS ORDERED: RX INFO: IV CONTRAST WAS GIVEN 1 EACH MISC MISCELLANE PRN (10:24)
[2023-03-08] MEDS ORDERED: SODIUM CHLORIDE 0.9% 1,000 ML in EMPTY BAG 1 BAG IV SCH (10:30)
--- NOTE | 2023-03-08 10:31 | P.CARDCATH ---
Date of Procedure: 03/08/23 Description of Procedure: PERCUTANEOUS TRANSLUMINAL CORONARY ANGIOPLASTY CLINICAL INFORMATION: The patient is a 67-year-old female with a known history of hypertension, hyperlipidemia, diabetes mellitus who has been complaining of progressive dyspnea on exertion and had an abnormal MPI. Underwent cardiac catheterization by Dr Cabrales and was found to have significant obstructive disease in the LAD . Recommendations were made regarding angioplasty and stenting. The procedure as well as the risks and the complications were discussed with the patient who was in full understanding and agreement. PROCEDURE: A 6 [place] EBU 3.75 guiding catheter was introduced into the system. After cannulating the left main, a 0.014 BMW J wire was advanced to the first diagonal branch and then another 0.014 BMW J-wire was advanced across the lesion and positioned distally. Following that a 2.0 x 12 mm Treck balloon was advanced and inflated at 8 atmosphere. After removing the balloon a [place] [employer] [place] eye intravascular ultrasound catheter was advanced and imaging were obtained. Following that a 2.5 x 38 mm Xience matias point stent was deployed. It was dilated at 16 morteza. After removing the balloon repeat intravascular ultrasound imaging was obtained and subsequently at 3.25 x 12 mm NC Treck balloon was advanced and one inflation in the proximal segment was performed at 10 morteza.. After the last inflation, after appropriate wait, the balloon and the guidewire were withdrawn back into the guiding catheter. Images were obtained and repeated. Those images reveal stable successful stenting. At that point, the guiding catheter, the balloon, and guidewire were removed. The sheath was removed. Hemostasis was obtained with deployment of a TR band. There were no immediate complications. The patient was returned to the room in stable condition. Of note, the patient received 10,000 units of heparin as well as Plavix. His ACT was followed. There was no immediate complications. She had no chest discomfort or EKG changes with the inflations RESULTS: Successful stenting of the mid LAD with reduction of stenosis from 95 % to 5 % with intravascular ultrasound imaging. The patient had diffuse disease distally RECOMMENDATIONS: The patient will continue aspirin and Plavix for 1 week then she will stop aspirin and continue Plavix and anticoagulation for 6 months in addition to aggressive coronary risks modifications. The findings and recommendations were discussed with the patient and the family, they are in full understanding and agreement. Duration of sedation: 41 minutes
[2023-03-08] MEDS ORDERED: SODIUM CHLORIDE 0.9% 1,000 ML IV ONE (16:00)
[2023-03-08] MEDS: PREGABALIN 50 MG CAP PO SCH ×2 (16:59→20:31)
[2023-03-08 17:10] LABS: Glucose,Whole Blood 158 mg/dL (70-110)
[2023-03-08] MEDS: INSULIN ASPART (NovoLOG) 100 UNIT/ML VIAL SQ SCH (18:04)
[2023-03-08 20:40] LABS: Glucose,Whole Blood 147 mg/dL (70-110)
[2023-03-08] MEDS ORDERED: INSULIN DETEMIR (LEVEMIR) 100 UNIT/ML SYR SQ SCH (21:00)
[2023-03-08] MEDS ORDERED: ATORVASTATIN 40 MG TAB PO SCH (21:00)
[2023-03-09 01:08] VITALS: RESP 16
[2023-03-09] MEDS: SODIUM CHLORIDE 0.9% 1,000 ML in EMPTY BAG 1 BAG IV SCH ×2 (01:59→10:43)
[2023-03-09 05:43] LABS: Glucose,Whole Blood 143 mg/dL (70-110)
[2023-03-09 07:47] VITALS: BP 123/65; PULSE 100; TEMP 97.9
[2023-03-09] MEDS: INSULIN ASPART (NovoLOG) 100 UNIT/ML VIAL SQ SCH ×2 (08:23→13:08)
[2023-03-09 08:39] LABS: African American GFR (CKD) >90 (>60 ml/min/1.73 sqM); Anion Gap 7 mmol/L; Blood Urea Nitrogen 23 mg/dL (7-17); Calcium 9.7 mg/dL (8.4-10.2); Carbon Dioxide 26 mmol/L (22-30); Chloride 105 mmol/L (98-107); Glucose 111 mg/dL (74-99); Non-African American GFR(CKD) 85 (>60 ml/min/1.73 sqM); Potassium 4.8 mmol/L (3.5-5.1); Sodium 138 mmol/L (137-145)
[2023-03-09] MEDS ORDERED: ASPIRIN 81 MG PO SCH (09:00)
[2023-03-09] MEDS ORDERED: METOPROLOL SUCCINATE (ER) 50 MG TAB.ER.24H PO SCH (09:00)
[2023-03-09] MEDS ORDERED: DAPAGLIFLOZIN PROPANEDIOL 10 MG TABLET PO SCH (09:00)
[2023-03-09] MEDS ORDERED: CLOPIDOGREL 75 MG TAB PO SCH (09:00)
[2023-03-09] MEDS: PREGABALIN 50 MG CAP PO SCH (09:30)
[2023-03-09 11:55] LABS: Glucose,Whole Blood 159 mg/dL (70-110)
--- NOTE | 2023-03-09 17:26 | P.PN ---
Subjective Progress Note Date: 03/09/23 SUBJECTIVE: Patient is seen and examined at bedside this a.m. She is doing well reports feeling much better since the intervention has been done. Her right radial access appears to be healthy and healing well with good distal perfusion. Patient denies having any chest pain chest pressure. Vitals: Blood pressure 128/65, heart rate 90 beats a minute, irregular pulse due to atrial fibrillation PHYSICAL EXAMINATION Vital signs reviewed. Head: Normocephalic. Eyes: Sclerae nonicteric. Neck: Brisk carotid upstroke, no jugular venous distention. Lungs: Clear to auscultation. Heart: irregular rate and rhythm, S1-S2, no S3, no murmur or rub. Abdomen: Soft nontender, positive bowel sounds no organomegaly. Extremities: No edema, intact distal pulses. Good pulses in bilateral upper and lower extremity ASSESSMENT Status post PCI to mid LAD, long diffuse disease with 38 mm stent Persistent atrial fibrillation PLAN Continue aspirin and Plavix uninterruptedly for next 1 week. Discontinue aspirin thereafter. Continue Xarelto 20 mg daily from today Continue atorvastatin 80 mg Continue dapagliflozin, Bumex 1 mg daily Continue metoprolol 50 mg daily Outpatient follow-up with Dr. Cabrales in next 1-2 weeks Objective - Vital Signs Vital signs: Vital Signs Temp 97.9 F 03/09/23 07:00 Pulse 100 03/09/23 07:00 Resp 16 03/09/23 07:00 BP 123/65 03/09/23 07:00 Pulse Ox 100 03/09/23 07:00 FiO2 Intake & Output 03/08/23 03/09/23 03/09/23 18:59 06:59 18:59 Intake Total 1500 118 Balance 1500 118 Intake: IV 1500 Oral 118 Other: Voiding Method Toilet Toilet # Voids 1 3 2 # Bowel Movements 1 - Labs CBC & Chem 7: 03/08/23 06:23 03/09/23 07:53 Labs: Abnormal Lab Results - Last 24 Hours (Table) 03/08/23 03/09/23 03/09/23 Range/Units 20:39 05:42 07:53 BUN 23 H (7-17) mg/dL Glucose 111 H (74-99) mg/dL POC Glucose (mg/dL) 147 H 143 H (70-110) mg/dL 03/09/23 Range/Units 11:54 BUN (7-17) mg/dL Glucose (74-99) mg/dL POC Glucose (mg/dL) 159 H (70-110) mg/dL
[2023-03-11] MEDS ORDERED: NON FORMULARY DRUG (Semaglutide [Ozempic] 2 MG/0.75 ML Pen.Injctr) SQ SCH (10:26)
== END 2023-03-09 14:16 | disposition home or self-care (01) ==
LOC: CATHCVL 05:50 → 6NMEDSUR 10:20 → CATHCVL 03-09 14:16
PROVIDERS: ATTEND Student in an Organized Health Care Education/Training Program
DX: I48.19 Other persistent atrial fibrillation (principal); Z79.02 Long term (current) use of antithrombotics/antiplatelets; Z79.01 Long term (current) use of anticoagulants; Z79.82 Long term (current) use of aspirin; Z79.899 Other long term (current) drug therapy; Z95.5 Presence of coronary angioplasty implant and graft
CPT/HCPCS: 92978; 93460; 80048 ×2; 85018; 82810; 85025; C9600; C1769 ×3; C1887; C1894; C1725 ×2; C1753; C1874; J2250; J2001; J1644; Q9967; J3010

== ENCOUNTER → 2023-03-22 | Outpatient (CLI) | payer MEDICARE ==
[2023-03-22 21:49] LABS: LDL Cholesterol,Calculated 66.7 mg/dL (0.0-131.0)
== END | disposition home or self-care (01) ==
LOC: LABWHC1 13:12
PROVIDERS: ATTEND Student in an Organized Health Care Education/Training Program
DX: Z01.812 Encounter for preprocedural laboratory examination (principal); I48.0 Paroxysmal atrial fibrillation; R06.02 Shortness of breath
CPT/HCPCS: 36415; 80061; 84443

== ENCOUNTER → 2023-04-11 | Outpatient (CLI) | payer MEDICARE ==
[2023-04-11 22:33] LABS: HCT 38.3 % (37.2-46.3); MCH 22.5 pg (27.0-32.0); MCHC 28.7 d/dL (32.0-37.0); MCV 78.3 FL (80.0-97.0); NRBC Per 100 WBC 0 X 10*3/uL (0.00-0.01); Platelet Count 227 X 10*3/uL (140-440); RBC 4.89 X 10*6/uL (4.10-5.20); WBC 6.74 X 10*3/uL (4.50-10.00)
[2023-04-11 23:36] LABS: Blood Urea Nitrogen 30.3 mg/dL (9.0-27.0); Carbon Dioxide 26.8 mmol/L (21.6-31.8); Chloride 103 mmol/L (96-109); Potassium 4.8 mmol/L (3.5-5.5); Sodium 142 mmol/L (135-145)
== END | disposition home or self-care (01) ==
LOC: LABPAT 13:15
PROVIDERS: ATTEND Student in an Organized Health Care Education/Training Program
DX: Z01.812 Encounter for preprocedural laboratory examination (principal); I48.11 Longstanding persistent atrial fibrillation; R06.02 Shortness of breath
CPT/HCPCS: 80051; 82565; 84520; 85027

== ENCOUNTER 2023-04-16 08:28 | Day surgery (SDC) | payer MEDICARE ==
[2023-04-11 13:20] VITALS: BMI 38.0
[~2023-04-16 08:28] MED LIST changes: -IRON SUCROSE 200 MG in SODIUM CHLORIDE 0.9% 100 ML IVPB NR; +LACTATED RINGERS 1,000 ML IV SCH; +LIDOCAINE 1% (10MG/ML) FOR IV START INTRADERMA PRN; -SODIUM CHLORIDE 0.9% 500 ML 500 ML in EMPTY BAG 1 BAG IV PRN
[2023-04-16 09:18] VITALS: TEMP 97
[2023-04-16 09:25] LABS: Glucose,Whole Blood 131 mg/dL (70-110)
[2023-04-16] MEDS ORDERED: BENZOCAINE SPRAY 1 CAN TOPICAL ONE (10:29)
[2023-04-16] MEDS ORDERED: PROPOFOL 10 MG/ML 20 ML VIAL IV ONE (10:30)
[2023-04-16 12:18] VITALS: BP 128/68; PULSE 60; RESP 16
--- NOTE | 2023-04-16 21:14 | P.TEE ---
Date of Procedure: 04/16/23 Description of Procedure(s): Procedure performed: 1. Transesophageal Echocardiogram. 2. Synchronized Cardioversion. 3. Bubble study Indications: Persistent atrial fibrillation Consent: I have discussed the risks, benefits and alternative therapies for the above-mentioned procedure. The patient has indicated understanding and acceptance of the risks of the procedure. Signed consent was obtained and was placed in the paper chart. Moderate conscious sedation: Moderate conscious sedation was administered by anesthesia, see separate report. Procedural Steps: Timeout was performed in usual fashion. Patient's heart rate, blood pressure, oxygen saturation and ECG were monitored. After achieving appropriate moderate conscious sedation, KIMBER probe was advanced without difficulty and without any immediate complications to the esophagus. KIMBER study was performed with color flow doppler, pulsed wave doppler and continuous wave doppler. Agitated saline bubbles were injected to assess for any intra-atrial shunt. The probe was then removed. After making sure that there is no evidence of intracardiac thrombus, pacer pads were placed on patients chest and back. Synchronized cardioversion was perfromed using [150] J. [1] attempt. Sinus rhythm was confirmed with a 12 lead EKG. Patient tolerated the procedure well. Patient was transferred to the post procedure area in stable and satisfactory condition. Complications: none FINDINGS Left Atrium: Normal Left atrial size. No evidence of mass or thrombus seen Left Atrial Appendage: No evidence of thrombus or mass seen in NIGHAT Inter atrial septum: Intact inter-atrial septum. No evidence of atrial septal de fect or patent foramen ovale on color doppler. No [id number] shunting with bubble study Left Ventricle: Normal global LV size and systolic function Right Atrium: Normal overall RV size Right Ventricle: Normal global RV size and systolic function Aortic Valve: Structurally normal [place], no significant calcification. No significant stenosis or regurgitation on color doppler assessment. Mitral Valve: Struturally normal. No evidence of prolapse. No evidence of s tenosis or regurgitation on doppler assessment Pulmonic Valve: Not well visualized. Tricuspid Valve: Structurally normal. Ascending aorta, Aortic root and Aortic arch: Mild intimal thickening. No evidence of large atheroma or bulky calcification Descending aorta: Mild intimal thickening. No evidence of large atheroma or bulky calcification CONCLUSION: No evidence of left atrial or after atrial appendage thrombus Normal LV size and systolic function Mild mitral regurgitation No evidence of [id number] intracardiac shunting with bubble study Successful synchronous cardioversion. Current medications without changes, follow up outpatient next 1-2 weeks
== END 2023-04-16 12:19 | disposition home or self-care (01) ==
LOC: OR 08:28
PROVIDERS: ATTEND Student in an Organized Health Care Education/Training Program
DX: I34.0 Nonrheumatic mitral (valve) insufficiency (principal); I48.19 Other persistent atrial fibrillation; E11.9 Type 2 diabetes mellitus without complications; E66.9 Obesity, unspecified; I42.8 Other cardiomyopathies; I51.7 Cardiomegaly; I10 Essential (primary) hypertension; I25.10 Atherosclerotic heart disease of native coronary artery without angina pectoris; Z79.4 Long term (current) use of insulin; Z79.02 Long term (current) use of antithrombotics/antiplatelets; Z79.899 Other long term (current) drug therapy; Z68.30 Body mass index [BMI] 30.0-30.9, adult; Z95.1 Presence of aortocoronary bypass graft; Z79.01 Long term (current) use of anticoagulants
CPT/HCPCS: 93312; 93320; 93325; 92960; J2704

== ENCOUNTER → 2023-05-09 | Outpatient (CLI) | payer MEDICARE, OTHER ==
[2023-05-09 22:47] LABS: African American GFR (CKD) 56 (>60 ml/min/1.73 sqM); Anion Gap 15 mmol/L; Blood Urea Nitrogen 59 mg/dL (7-17); Carbon Dioxide 25 mmol/L (22-30); Chloride 100 mmol/L (98-107); Glucose 91 mg/dL (74-99); Non-African American GFR(CKD) 49 (>60 ml/min/1.73 sqM); Sodium 140 mmol/L (137-145)
[2023-05-09 22:56] LABS: NT-Pro-B-Type Natriuretic Pept 1230 pg/mL
[2023-05-10 04:18] LABS: Chol/HDL Ratio 3.31 Ratio; LDL Cholesterol,Calculated 77.8 mg/dL (0.0-131.0)
== END | disposition home or self-care (01) ==
LOC: LABWHC1 14:20
PROVIDERS: ATTEND Student in an Organized Health Care Education/Training Program
DX: I50.9 Heart failure, unspecified (principal); E78.5 Hyperlipidemia, unspecified; N18.9 Chronic kidney disease, unspecified
CPT/HCPCS: 36415; 80048; 80061; 83880

== ENCOUNTER 2023-05-26 13:34 | Emergency (ER) | payer MEDICARE, OTHER ==
[2023-05-26 13:56] VITALS: RESP 18
[2023-05-26] MEDS ORDERED: KETOROLAC 15 MG/ML 1 ML VIAL IM STA (14:12)
--- NOTE | 2023-05-26 14:30 | ED ---
General Adult HPI - General Chief complaint: Fall Stated complaint: back pain/fall Time Seen by Provider: 05/26/23 13:49 Source: patient, RN notes reviewed Mode of arrival: wheelchair Limitations: no limitations - History of Present Illness Initial comments: -year-old female with a past medical history significant for atrial fibrillation presents the emergency department with a chief complaint of fall. Patient reports that she was leaning down to her dog TO A LEASH WHEN SHE FELL BACKWARDS onto her buttocks. She reports that she does take Eliquis hours denies hitting her head or loss of consciousness. She is complaining of low back pain that is worse with movement. She denies any numbness, tingling, weakness in the extremities. Denies headache, dizziness, vision changes or vision loss. - Related Data Home Medications Medication Instructions Recorded Confirmed Omeprazole 20 mg PO HS 06/04/16 04/16/23 Potassium Chloride [K-Tab ER] 10 meq PO BID 06/04/16 04/16/23 Rivaroxaban [Xarelto] 20 mg PO W/SUPPER 06/04/16 04/16/23 allopurinoL [Zyloprim] 300 mg PO DAILY 06/04/16 04/16/23 metFORMIN HCL [Glucophage] 1,000 mg PO BID 04/29/20 04/16/23 Cholecalciferol [Vitamin D3 (25 25 mcg PO DAILY 09/03/22 04/16/23 Mcg = 1000 Iu)] Insulin Glargine,Hum.rec.anlog 80 unit SQ HS 09/03/22 04/16/23 [Lantus Solostar Pen] Metoprolol Succinate (ER) [Toprol 50 mg PO DAILY 09/03/22 04/16/23 XL] oxyBUTYnin chloride [Ditropan] 5 mg PO DAILY 09/03/22 04/16/23 Pregabalin [Lyrica] 150 mg PO TID 11/17/22 04/16/23 Bumetanide [BUMEX] 1 mg PO DAILY 03/06/23 04/16/23 Amitriptyline HCl 10 mg PO HS 04/11/23 04/16/23 Cetirizine HCl [Zyrtec] 10 mg PO DAILY 04/11/23 04/16/23 Empagliflozin [Jardiance] 10 mg PO DAILY 04/11/23 04/16/23 Ferrous Sulfate [Feosol] 325 mg PO DAILY 04/11/23 04/16/23 Tirzepatide [Mounjaro] 7.5 mg SQ Q7D 04/11/23 04/16/23 Previous Rx's Medication Instructions Recorded Insulin Aspart [NovoLOG Flexpen] 15 units SQ AC-TID #0 11/20/22 Atorvastatin [Lipitor] 40 mg PO HS 90 Days #90 tab 03/09/23 Clopidogrel [Plavix] 75 mg PO DAILY 90 Days #90 tab 03/09/23 Nitroglycerin Sl Tabs [Nitrostat] 0.4 mg SUBLINGUAL Q5M PRN #50 tab 03/09/23 Cyclobenzaprine [Flexeril] 5 mg PO TID PRN #15 tablet 05/26/23 Ibuprofen [Motrin] 800 mg PO Q6HR #30 tab 05/26/23 L.idocaine 5% Patch [Lidoderm] 1 patch TOPICAL DAILY #5 patch 05/26/23 Allergies Allergy/AdvReac Type Severity Reaction Status Date / Time No Known Allergies Allergy Verified 05/26/23 13:44 Review of Systems ROS Statement: Those systems with pertinent positive or pertinent negative responses have been documented in the HPI. ROS Other: All systems not noted in ROS Statement are negative. Past Medical History Past Medical History: Atrial Fibrillation, Coronary Artery Disease (CAD), Diabetes Mellitus, GERD/Reflux, GI Bleed, Hyperlipidemia, Hypertension, Osteoarthritis (OA) Additional Past Medical History / Comment(s): See Dr Cabrales's H&P. History of Any Multi-Drug Resistant Organisms: None Reported Past Surgical History: Appendectomy, Section, Cholecystectomy, Hysterectomy, Joint Replacement, Orthopedic Surgery Additional Past Surgical History / Comment(s): Bilateral carpal tunnel, bilateral total knee replacements, colonoscopy, EGD. Past Anesthesia/Blood Transfusion Reactions: Previous Problems w/ Anesthesia Additional Past Anesthesia/Blood Transfusion Reaction / Comment(s): Had spinal fluid leak w/ prior spinal for knee surgery-stated was told not to have spinals. No problems with blood transfusion received 30-40 yrs ago. Date of Last Stent Placement:: 02/2023 Past Psychological History: No Psychological Hx Reported Smoking Status: Never smoker Past Alcohol Use History: None Reported Past Drug Use History: None Reported - Past Family History Mother Family Medical History: No Reported History General Exam - General Exam Comments Initial Comments: General: Alert, in no acute distress Head: atraumatic normocephalic. Eyes PERRL, EOMI intact, mucous membranes moist Respiratory: Lungs clear to auscultation bilaterally Cardiovascular: Rate regular rate and rhythm Abdominal: Soft without guarding or rebound Extremities: Normal inspection with full range of motion and normal capillary refill Back: Bilateral lumbar paraspinal muscle tenderness, No step-off Neuroogic: alert and oriented 3, CN II-XII intact, able to ambulate with steady gait Skin: warm dry and intact with normal color Limitations: no limitations Course Vital Signs 05/26/23 13:39 Temperature 97.8 F Pulse Rate 73 Respiratory 18 Rate Blood Pressure 96/66 O2 Sat by Pulse 99 Oximetry - Reevaluation(s) Reevaluation #1: 05/26/23 16:45 Pt re-evaluated. Patient able to ambulate without assistance. Patient agreeable with the plan for discharge home. Medical Decision Making - Medical Decision Making Was pt. sent in by a medical professional or institution (EVERT Rosenbaum, DIGITAL MARKETING ANALYST, urgent care, hospital, or custodial...) When possible be specific @ -[No] Did you speak to anyone other than the patient for history (EMS, parent, family, police, friend...)? What history was obtained from this source @ -[No] Did you review nursing and triage notes (agree or disagree)? Why? @ -[I reviewed and agree with nursing and triage notes] Were old charts reviewed (outside hosp., previous admission, EMS record, old EKG, old radiological studies, urgent care reports/EKG's, custodial records)? Report findings @ -[No old charts were reviewed] Differential Diagnosis (chest pain, altered mental status, abdominal pain women, abdominal pain men, vaginal bleeding, weakness, fever, dyspnea, syncope, headache, dizziness, GI bleed, back pain, seizure, CVA, palpatations, mental health, musculoskeletal)? @ -[not applicable] EKG interpreted by me (3pts min.). @ -[As above] X-rays interpreted by me (1pt min.). @ -Lumbar spine, hip x-ray negative for any evidence of fracture or dislocation CT interpreted by me (1pt min.). @ -CT head does not reveal any intracranial process or midline shift CT lumbar spine does not reveal any evidence of compression fracture U/S interpreted by me (1pt. min.). @ -[None done] What testing was considered but not performed or refused? (CT, X-rays, U/S, labs)? Why? @ -[None] What meds were considered but not given or refused? Why? @ -[None] Did you discuss the management of the patient with other professionals (professionals i.e. , PA, DIGITAL MARKETING ANALYST, lab, RT, psych nurse, social and human services assistant, home care consultant, teacher, financial officer, outpatient case manager)? Give summary @ -[No] Was smoking cessation discussed for >3mins.? @ -[No] Was critical care preformed (if so, how long)? @ -[No] Were there social determinants of health that impacted care today? How? (Homelessness, low income, unemployed, alcoholism, drug addiction, transportation, low edu. Level, literacy, decrease access to med. care, group home, rehab)? @ -[No] Was there de-escalation of care discussed even if they declined (Discuss DNR or withdrawal of care, Hospice)? DNR status @ -[No] What co-morbidities impacted this encounter? (DM, HTN, Smoking, COPD, CAD, Cancer, CVA, ARF, Chemo, Hep., AIDS, mental health diagnosis, sleep apnea, morbid obesity)? @ -[None] Was patient admitted / discharged? Hospital course, mention meds given and route, prescriptions, significant lab abnormalities, going to OR and other pertinent info. @ -Discharged. This is a pleasant 57-year-old female who presents the emergency department fall. Patient has a history and physical exam performed. No focal neuro deficits on exam. Again, we'll auscultation bilaterally abdomen soft nontender mild lumbar paraspinal muscle tenderness without step-off. Patient able to move all extremities and a minimally with a steady gait CT and x-ray imaging which were negative. Patient was provided Toradol, Flexeril with symptomatic improvement. She is provided a prescription for Motrin, Tylenol with codeine, Lidoderm patches. Return precautions were discussed at length. Patient was discharged in stable condition. Recommend close follow-up with PCP in 1-2 days. Case is discussed with JO-ANN Herrera who agrees with plan of care Undiagnosed new problem with uncertain prognosis? @ -[No] Drug Therapy requiring intensive monitoring for toxicity (Heparin, Nitro, Insulin, Cardizem)? @ -[No] Were any procedures done? @ -[No] Diagnosis/symptom? @ -Fall on Eliquis - Low back Pain Acute, or Chronic, or Acute on Chronic? @ -Acute Uncomplicated (without systemic symptoms) or Complicated (systemic symptoms)? @ -Uncomplicated Side effects of treatment? @ -[No] Exacerbation, Progression, or Severe Exacerbation? @ -[No] Poses a threat to life or bodily function? How? (Chest pain, [place], [place], pneumonia, PE, COPD, DKA, ARF, appy, cholecystitis, CVA, Diverticulitis, Homicidal, Suicidal, threat to staff... and all critical care pts) @ -Low likelihood Disposition Clinical Impression: Fall Disposition: HOME SELF-CARE Condition: Good Instructions (If sedation given, give patient instructions): Fall Prevention for Older Adults (ED), Arthralgia (ED), Back Pain (ED), Fall Prevention (ED), Lower Back Exercises (ED) Additional Instructions: Please monitor symptoms closely These take Tylenol or Motrin for pain Please return to the ER if worsening pain or if symptoms worsen or persist Prescriptions: Cyclobenzaprine [Flexeril] 5 mg PO TID PRN #15 tablet PRN Reason: Muscle Spasm L.idocaine 5% Patch [Lidoderm] 1 patch TOPICAL DAILY #5 patch Ibuprofen [Motrin] 800 mg PO Q6HR #30 tab Is patient prescribed a controlled substance at d/c from ED?: No Referrals: Zoie Moore DO [Primary Care Provider] - 1-2 days Time of Disposition: 16:48
--- NOTE | 2023-05-26 15:14 | XR ---
EXAMINATION TYPE: XR lumbar spine 2 or 3V DATE OF EXAM: 05/26/2023 2:52 PM CLINICAL INDICATION:Female, 67 years old with history of fall; [facility] COMPARISON: None TECHNIQUE: Frontal, lateral and coned in L5-S1 lateral views of the spine. FINDINGS: No evidence of any acute osseous pathology. No evidence of loss of vertebral body height i s seen. There is normal alignment of the lumbar vertebral bodies. Mild scattered disc space narrowing . Multilevel marginal osteophyte formation throughout the visualized spine. There is facet joint arth ropathy throughout the spine. Scattered at least mild neural foraminal stenosis. IMPRESSION: 1. No acute fracture. 2. Moderate multilevel disc degeneration.
--- NOTE | 2023-05-26 15:15 | XR ---
EXAMINATION TYPE: XR sacrum coccyx DATE OF EXAM: 05/26/2023 2:52 PM CLINICAL INDICATION:Female, 67 years old with history of fall. COMPARISON: None TECHNIQUE: The sacrum and coccyx was examined in frontal and lateral projections. FINDINGS: There is no evidence of fracture or dislocation. There is no soft tissue abnormality. Mult ilevel degenerative changes of the lower spine and sacroiliac joints. IMPRESSION: No acute osseous pathology.
--- NOTE | 2023-05-26 15:35 | CT ---
EXAMINATION TYPE: CT brain wo con CT DLP: 1125.4 mGycm, Automated exposure control for dose reduction was used. DATE OF EXAM: 05/26/2023 3:20 PM COMPARISON: None. CLINICAL INDICATION:Female, 67 years old with history of fall. TECHNIQUE: Brain: Axial CT images of the brain were obtained with coronal and sagittal reformats created and rev iewed. Contrast used: None. Oral contrast used: None. FINDINGS: Brain: Extra-axial spaces: No abnormal extra-axial fluid collections. Ventricular system: Within normal limits Cerebral parenchyma: No acute intraparenchymal hemorrhage or mass effect. The mead-white junction is well differentiated. Scattered hypoattenuating areas are seen within the white matter, consistent wi th chronic microvascular disease changes. Cerebellum: Unremarkable. Mass effect: No evidence of midline shift. Intracranial vasculature: Atherosclerotic calcifications of the intracranial vessels. Soft tissues: Normal. Calvarium/osseous structures: No depressed skull fracture. Paranasal sinuses and mastoid air cells: Mild scattered paranasal sinus disease. Visualized orbits: Orbital contents are intact. IMPRESSION: No acute intracranial process.
--- NOTE | 2023-05-26 15:38 | CT ---
EXAMINATION TYPE: CT lumbar spine wo con CT DLP: mGycm, Automated exposure control for dose reduction was used. DATE OF EXAM: 05/26/2023 3:20 PM COMPARISON: None. CLINICAL INDICATION:Female, 67 years old with history of fall. TECHNIQUE: Multiple axial images were obtained from the midportion of T11 through the sacroiliac sumeet nts. Soft tissue and bone windows in coronal and sagittal planes were obtained and reviewed. 3-D ref ormats of the bones were created on a separate workstation and submitted for review. Contrast used:none. Oral contrast used: none. FINDINGS: Alignment: There are 5 lumbar type vertebral bodies. Grade 1 anterolisthesis of L4 on L5. Bone: No evidence of fracture is identified. Degenerative changes: Moderate multilevel degenerative changes are identified with disc space height loss, facet arthropathy, and atrial defects consistent with disc bulges. Findings are most pronounced in the lower lumbar spine with moderate to severe spinal canal narrowing secondary to disc uncoverin g and degenerative changes at the L4-L5 level. Bilateral moderate neural foraminal narrowing is appre ciated throughout the lumbar spine. IMPRESSION: 1. No evidence for spinal fracture. 2. Multilevel degenerative changes creating up to moderate to severe spinal canal stenosis at the L4- L5 level.
--- NOTE | 2023-05-26 16:19 | XR ---
EXAMINATION TYPE: XR Hip Bilateral Complete DATE OF EXAM: 05/26/2023 3:58 PM CLINICAL INDICATION:Female, 67 years old with history of fall; [facility] COMPARISON: None. TECHNIQUE: The bilateral hips was examined in the frontal and lateral projections and a AP pelvis. FINDINGS: No evidence for acute process, joint dislocation or significant soft tissue swelling. IMPRESSION: No acute process.
[2023-05-26] MEDS ORDERED: ACET/COD 300 MG/30 MG STARTER PACK 6 TAB BTL PO STA (16:49)
[2023-05-26 17:31] VITALS: BP 105/72; PULSE 70; TEMP 98.1
== END 2023-05-26 17:16 | disposition home or self-care (01) ==
LOC: EC 13:34
DX: M54.50 Low back pain, unspecified (principal); I25.10 Atherosclerotic heart disease of native coronary artery without angina pectoris; I48.91 Unspecified atrial fibrillation; K21.9 Gastro-esophageal reflux disease without esophagitis; I10 Essential (primary) hypertension; E78.5 Hyperlipidemia, unspecified; E11.9 Type 2 diabetes mellitus without complications; Z79.84 Long term (current) use of oral hypoglycemic drugs; Z79.4 Long term (current) use of insulin; Z79.02 Long term (current) use of antithrombotics/antiplatelets; Z79.899 Other long term (current) drug therapy; W18.30XA Fall on same level, unspecified, initial encounter; Y92.009 Unspecified place in unspecified non-institutional (private) residence as the place of occurrence of the external cause
CPT/HCPCS: 72100; 72220; 73521; 72131; 70450; 99284; 96372; J1885

== ENCOUNTER → 2023-07-26 | Outpatient (CLI) | payer MEDICARE ==
[2023-07-26 12:24] LABS: ALT 18 U/L (4-34); AST 23 U/L (14-36); African American GFR (CKD) 55 (>60 ml/min/1.73 sqM); Albumin 4.6 g/dL (3.5-5.0); Albumin/Globulin Ratio 1.5; Alkaline Phosphatase 88 U/L (38-126); Anion Gap 10 mmol/L; Blood Urea Nitrogen 40 mg/dL (7-17); Calcium 10.8 mg/dL (8.4-10.2); Carbon Dioxide 25 mmol/L (22-30); Chloride 105 mmol/L (98-107); Glucose 134 mg/dL (74-99); Non-African American GFR(CKD) 47 (>60 ml/min/1.73 sqM); Sodium 140 mmol/L (137-145); Total Bilirubin 0.5 mg/dL (0.2-1.3); Total Protein 7.6 g/dL (6.3-8.2)
[2023-07-26 12:26] LABS: NT-Pro-B-Type Natriuretic Pept 1740 pg/mL
[2023-07-26 12:38] LABS: Potassium 6.1 mmol/L (3.5-5.1)
[2023-07-26 20:59] LABS: Chol/HDL Ratio 2.93 Ratio; LDL Cholesterol,Calculated 71.4 mg/dL (0.0-131.0)
== END | disposition home or self-care (01) ==
LOC: LABWHC1 10:59
PROVIDERS: ATTEND Student in an Organized Health Care Education/Training Program
DX: E11.22 Type 2 diabetes mellitus with diabetic chronic kidney disease (principal); N18.9 Chronic kidney disease, unspecified; E03.9 Hypothyroidism, unspecified; I48.91 Unspecified atrial fibrillation; I50.9 Heart failure, unspecified
CPT/HCPCS: 36415; 80053; 80061; 83036; 83880; 84443

== ENCOUNTER 2023-07-31 19:47 | Outpatient (CLI) | payer MEDICARE ==
--- NOTE | 2023-08-06 14:25 | P.PCN ---
Date of Procedure: 07/31/23 Operative Findings: Polysomnography report Date of service is 07/31/2023 Pertinent history This is a very pleasant 67-year-old male patient diagnosed having obstructive sleep apnea more than 20 years ago. At that time the patient was not offered any treatment. However recently, the patient had developed some cardiac issues including coronary artery disease including a stent to his LAD. The patient also has chronic atrial fibrillation. The patient has diabetes mellitus diabetic neuropathy maintained on pregabalin. Based on her overall condition and comorbidities, the patient came into the sleep center for a screening polysomnography to evaluate and consider treatment for obstructive sleep apnea. Technical description The patient was studied using a standard complex polysomnography protocol that included recording of the 2 EKG, Central, occipital and frontal EEG, right and left outer canthus EOG, submental EMG, right and left anterior tibialis EMG, respiratory airflow by thermocouple and or pressure/flow transducer, respiratory efforts by abdominal and thoracic PVDF belts, oxygen saturation by cable oximetry. Position by observation synchronized the PSG. Equipment used: JoopLoop. Sleep architecture The total time in bed was 385.5 minutes. The total sleep time was 306.5 minutes. Sleep efficiency was calculated to be at 79.5%. The latency to sleep onset was 8 minutes. The latency to REM sleep was 298.5 minutes. Sleep architecture was characterized by 43.6% stage I, 37.7% stage II, 0% stage III, and 18.8% REM sleep. The overall arousal index was 32.7 Sleep continuity summary The patient had a total of 167 arousals with an index of 32.7. The respiratory arousal index was 16.6 Periodic movement events The patient had a total of 111 periodic limb movement activity with an index of 21.7. The number of periodic limb movement activity associated with arousals were 5 with an index of 1.0 Cardiac summary The average heart rate was 64. Minimum rate was 59 and maximum heart rate was 69. Respiratory summary The respiratory analysis showed a total 137 obstructive events of which 0 were obstructive apneas, 0 were mixed apneas and a total of 137 hypopneas were also recorded. The resulting apnea-hypopnea index was 26.6. Note that the patient's disease was not any worse during REM sleep. No positional variation and the severity of sleep apnea also noted Oxygenation analysis The baseline pulse ox while awake was 95%. Lowest pulse ox was 77% and this occurred during non-REM sleep. The patient spent approximately 4 minutes of the sleep time below pulse ox of 89%. Assessment Obstructive sleep apnea moderate in severity with an AHI of 26.6. Respiratory events were essentially no pulm obstructive hypopneas. No central apneas were noted Mild nocturnal oxygen desaturation secondary to above Abnormal sleep architecture with over representation of stage I sleep and diminished stage II delta and REM. This is probably due to excessive sleep fragmentation and obstructive sleep apnea Periodic limb movement activity, not causing any significant arousals Remote history of obstructive sleep apnea diagnosed more than 20 years ago and the patient was not offered any treatment Restless leg syndrome Hypertension Diabetes mellitus type 2 Chronic A-fib Coronary artery disease Chronic kidney disease Obesity with a BMI of 37.3 Plan The patient has symptomatic obstructive sleep apnea with significant abnormalities sleep architecture and excessive sleep fragmentation. The patient will be asked to come into the sleep center to undergo a CPAP titration. Will continue to follow.
== END 2023-08-01 05:30 | disposition home or self-care (01) ==
LOC: 3 N SLEEP 19:47
PROVIDERS: ATTEND Internal Medicine Critical Care Medicine
DX: G47.33 Obstructive sleep apnea (adult) (pediatric) (principal); E11.40 Type 2 diabetes mellitus with diabetic neuropathy, unspecified; E66.9 Obesity, unspecified; G25.81 Restless legs syndrome; E11.22 Type 2 diabetes mellitus with diabetic chronic kidney disease; I12.9 Hypertensive chronic kidney disease with stage 1 through stage 4 chronic kidney disease, or unspecified chronic kidney disease; N18.9 Chronic kidney disease, unspecified; I25.10 Atherosclerotic heart disease of native coronary artery without angina pectoris; G47.52 REM sleep behavior disorder; G47.36 Sleep related hypoventilation in conditions classified elsewhere; G47.8 Other sleep disorders; G47.61 Periodic limb movement disorder; I48.20 Chronic atrial fibrillation, unspecified; Z68.37 Body mass index [BMI] 37.0-37.9, adult; Z95.5 Presence of coronary angioplasty implant and graft; Z79.01 Long term (current) use of anticoagulants; Z79.84 Long term (current) use of oral hypoglycemic drugs; Z79.85 Long-term (current) use of injectable non-insulin antidiabetic drugs; Z79.4 Long term (current) use of insulin; Z79.02 Long term (current) use of antithrombotics/antiplatelets; Z79.899 Other long term (current) drug therapy
CPT/HCPCS: 95810

== ENCOUNTER 2023-08-12 19:21 | Outpatient (CLI) | payer MEDICARE ==
--- NOTE | 2023-08-14 22:00 | P.PCN ---
Date of Procedure: 08/12/23 Operative Findings: CPAP titration report Date of services 08/12/2023 Pertinent history 67-year-old female patient diagnosed having obstructive sleep apnea, symptomatic with an AHI of 26 and the patient is presenting for a CPAP titration. The patient also had excessive NM interval with activity, not assoc iated with arousals and she has history of restless leg syndrome. She has hypertension, diabetes mellitus type 2, chronic A-fib, coronary artery disease, chronic kidney disease Pertinent physical finding The patient's height is 5 feet and 6 inches and weight is 231 and the patient has a body mass index of 37.3 Technical description The patient was studied using a standard complex polysomnography protocol that included recording of the 2 EKG, Central, occipital and frontal EEG, right and left outer canthus EOG, submental EMG, right and left anterior tibialis EMG, respiratory airflow by thermocouple and or pressure/flow transducer, respiratory efforts by abdominal and thoracic PVDF belts, oxygen saturation by cable oximetry. Position by observation synchronized the PSG. Stepwise CPAP t itration was done to eliminate obstructive respiratory events equipment used: leemail. Sleep architecture The total time in bed was 435.5 minutes. The total sleep time was 370.5 minutes. The sleep efficiency was calculated to be at 85.1%. Latency to sleep onset was 9.5 minutes. Related to REM sleep was 19.5 minutes. Sleep architecture was characterized by 1.6% stage I, 56.5% stage II, 0% stage II and 41.8% REM sleep. The wake after sleep onset time was 54.5 minutes and the total arousal index was 7.1 Sleep continuity summary The patient had a total of 44 arousals with an index of 7.1. The respiratory arousal index was 1.1 Periodic limb movement events Total of 436 periodic limb movement activity was counted with an index of 70.6. There was only 1 periodic limb movement activity with arousals with an index of 0.2 Respiratory summary The patient was started on CPAP therapy initially at a pressure of 5 cm of water and the pressure was gradually increased by treatments of 1 cm to reach a maximum CPAP pressure of 8 cm of water. I carefully reviewed the CPAP titration taken, the patient's sleep stage and body position. Note that the titration was done at various body position including the supine body position and the patient encountered REM and non-REM sleep. The titration itself was successful specially the pressure of 8 cm of water. No significant nocturnal oxygen saturation. The patient counted the REM rebound while being on CPAP therapy. This was not successful titration Oxygenation analysis Oxygen saturations recovered while being on CPAP therapy without any desaturations and target pressure of 8 cm of water Assessment Symptomatic obstructive sleep apnea with an AHI of 26 and the patient underwent a successful CPAP titration. There was elimination of the nocturnal desaturations Rapid rebound secondary to CPAP therapy Excessive. Regular movement activity, not causing any arousals Restless leg syndrome Diabetes mellitus type 2 Hypertension Chronic A-fib Coronary disease Chronic kidney disease Obesity with a BMI of 37.3 Plan Initiate CPAP therapy at a pressure of 8 cm of water with C-Flex of 3 and the patient is going to be off of the medium size AirFit F20 fullface mask. Will initiate CPAP therapy and the patient is going to see me in the office in 30 to 90 days to assess clinical response and compliancy. During this time the patient is going to maintain good sleep hygiene measures. The patient will maintain regular sleep schedule. Will optimize comorbidities. Will continue to follow and make further recommendation adjustments on his CPAP based on the patient's overall medical response.
== END 2023-08-13 06:00 | disposition home or self-care (01) ==
LOC: 3 N SLEEP 19:21
PROVIDERS: ATTEND Internal Medicine Critical Care Medicine
DX: G47.33 Obstructive sleep apnea (adult) (pediatric) (principal); G25.81 Restless legs syndrome; E66.9 Obesity, unspecified; E11.22 Type 2 diabetes mellitus with diabetic chronic kidney disease; I12.9 Hypertensive chronic kidney disease with stage 1 through stage 4 chronic kidney disease, or unspecified chronic kidney disease; N18.9 Chronic kidney disease, unspecified; I25.10 Atherosclerotic heart disease of native coronary artery without angina pectoris; I48.20 Chronic atrial fibrillation, unspecified; Z68.37 Body mass index [BMI] 37.0-37.9, adult; Z79.4 Long term (current) use of insulin; Z79.84 Long term (current) use of oral hypoglycemic drugs; Z79.85 Long-term (current) use of injectable non-insulin antidiabetic drugs; Z79.01 Long term (current) use of anticoagulants; Z79.02 Long term (current) use of antithrombotics/antiplatelets; Z79.899 Other long term (current) drug therapy
CPT/HCPCS: 95811

== ENCOUNTER → 2023-08-15 | Outpatient (CLI) | payer MEDICARE ==
[2023-08-15 22:11] LABS: Blood Urea Nitrogen 36.3 mg/dL (9.0-27.0); Calcium 10.2 mg/dL (8.7-10.3); Carbon Dioxide 25.1 mmol/L (21.6-31.8); Chloride 102 mmol/L (96-109); Glucose 153 mg/dL (70-110); Potassium 4.7 mmol/L (3.5-5.5); Sodium 140 mmol/L (135-145)
== END | disposition home or self-care (01) ==
LOC: LABWHC1 11:39
PROVIDERS: ATTEND Student in an Organized Health Care Education/Training Program
DX: Z00.00 Encounter for general adult medical examination without abnormal findings (principal)
CPT/HCPCS: 36415; 80048

== ENCOUNTER → 2023-10-03 | Outpatient (CLI) | payer MEDICARE ==
--- NOTE | 2023-10-04 14:14 | MM ---
Reason for Exam: Screening (asymptomatic). Last mammogram was performed 1 year(s) and 4 month(s) ago. Patient History: Menarche at age 10. First Full-Term at age 20. Left ovary removed at age 45. Right ovary removed at age 45. Hysterectomy at age 45. Postmenopausal. Endometrial cancer, age 45. Estrogen for 1 year, 3 months. Risk Values: Sharri 5 year model risk: 1.5%. NCI Lifetime model risk: 4.8%. Prior Study Comparison: 04/24/2018 Bilateral Screening Mammogram, [facility]. 06/13/2019 Bilateral Screening Mammogram, [facility]. 06/14/2020 Bilateral Screening Mammogram, [facility]. 06/14/2022 Bilateral MG 3D screening mammo w/cad, [facility]. Tissue Density: There are scattered areas of fibroglandular density. Findings: Analyzed By CAD. There is no suspicious group of microcalcifications or new suspicious mass in either breast. Overall Assessment: Benign, BI-RAD 2 Management: Screening Mammogram of both breasts in 1 year. . Patient should continue monthly self-breast exams. A clinical breast exam by your physician is recommended on an annual basis. This exam should not preclude additional follow-up of suspicious palpable abnormalities. Note on Sharri scores and lifetime risk: 1. A Sharri score greater than 3% is considered moderate risk. If this is the case, consider specialist referral to assess eligibility for a risk reducing agent. 2. If overall lifetime risk for the development of breast cancer is 20% or higher, the patient may qualify for future screening with alternating mammogram and breast MRI. Electronically signed and approved by: Micky Elliott M.D. Radiologis
== END | disposition home or self-care (01) ==
LOC: RADMAMWWP 08:21
PROVIDERS: ATTEND Family Medicine
DX: Z12.31 Encounter for screening mammogram for malignant neoplasm of breast (principal); Z78.0 Asymptomatic menopausal state
CPT/HCPCS: 77063; 77067

== ENCOUNTER → 2023-10-11 | Outpatient (CLI) | payer MEDICARE ==
[2023-10-11 16:34] LABS: HCT 38.8 % (37.2-46.3); MCH 26.3 pg (27.0-32.0); MCHC 30.9 g/dL (32.0-37.0); MCV 85.1 FL (80.0-97.0); Mean Platelet Volume 12.2 FL (9.5-12.2); NRBC Per 100 WBC 0 X 10*3/uL (0.00-0.01); Platelet Count 200 X 10*3/uL (140-440); RBC 4.56 X 10*6/uL (4.10-5.20); RDW 17.5 % (11.5-14.5); WBC 6.25 X 10*3/uL (4.50-10.00)
[2023-10-11 17:17] LABS: NT-Pro-B-Type Natriuretic Pept 1263 pg/mL (0-125)
[2023-10-11 17:27] LABS: ALT 17 U/L (8-44); AST 17 U/L (13-35); Albumin 4.6 g/dL (3.8-4.9); Albumin/Globulin Ratio 1.77 Ratio (1.60-3.17); Alkaline Phosphatase 70 U/L (41-126); BUN/Creat Ratio 41.19 Ratio (12.00-20.00); Blood Urea Nitrogen 65.9 mg/dL (9.0-27.0); Calcium 10.5 mg/dL (8.7-10.3); Carbon Dioxide 20.6 mmol/L (21.6-31.8); Chloride 104 mmol/L (96-109); Chol/HDL Ratio 3.48 Ratio; Globulin 2.6 g/dL (1.6-3.3); Glucose 150 mg/dL (70-110); LDL Cholesterol,Calculated 80.8 mg/dL (0.0-131.0); Potassium 5.7 mmol/L (3.5-5.5); Sodium 137 mmol/L (135-145); T4, Free (Free Thyroxine) 1.08 ng/dL (0.80-1.80); Total Bilirubin 0.2 mg/dL (0.3-1.2); Total Protein 7.2 g/dL (6.2-8.2)
== END | disposition home or self-care (01) ==
LOC: LABPAT 11:23
PROVIDERS: ATTEND Internal Medicine Clinical Cardiac Electrophysiology
DX: Z01.812 Encounter for preprocedural laboratory examination (principal); E11.22 Type 2 diabetes mellitus with diabetic chronic kidney disease; N18.9 Chronic kidney disease, unspecified; I50.9 Heart failure, unspecified; I48.0 Paroxysmal atrial fibrillation
CPT/HCPCS: 80053; 80061; 83036; 83880; 84439; 84443; 85027

== ENCOUNTER 2023-10-22 03:08 | Inpatient (IN) | payer MEDICARE ==
--- NOTE | 2023-10-22 03:43 | ED ---
Weakness HPI - General Chief complaint: Weakness Stated complaint: Multiple falls, Weakness Time Seen by Provider: 10/22/23 03:15 Source: patient, EMS Mode of arrival: EMS - History of Present Illness Initial comments: 67-year-old female with past medical history of A-fib, coronary artery disease, diabetes who presents emergency department reporting multiple falls. States that the past couple of weeks she has been extremely weak and had multiple falls. Patient has multiple skin tears. States that she did hit her head but the most recent was 2 weeks ago. She does take a blood thinner. She denies any headaches or visual changes. Admits that she recently started thyroid medication and has been taking it as directed. She denies any chest pain or shortness of breath. Denies any injuries (other than skin tears) from the falls. No abdominal pain. No changes in her bowel or bladder habits. No other alleviating, precipitating or modifying factors - Related Data Home Medications Medication Instructions Recorded Confirmed Omeprazole 20 mg PO HS 06/04/16 10/22/23 Rivaroxaban [Xarelto] 20 mg PO W/SUPPER 06/04/16 10/22/23 allopurinoL [Zyloprim] 300 mg PO DAILY 06/04/16 10/22/23 metFORMIN HCL [Glucophage] 1,000 mg PO BID 04/29/20 10/22/23 Cholecalciferol [Vitamin D3 (25 25 mcg PO DAILY 09/03/22 10/22/23 Mcg = 1000 Iu)] Insulin Glargine,Hum.rec.anlog 20 - 40 unit SQ HS 09/03/22 10/22/23 [Lantus Solostar Pen] oxyBUTYnin chloride [Ditropan] 5 mg PO DAILY 09/03/22 10/22/23 Pregabalin [Lyrica] 150 mg PO TID 11/17/22 10/22/23 Amitriptyline HCl 10 mg PO HS 04/11/23 10/22/23 Cetirizine HCl [Zyrtec] 10 mg PO DAILY 04/11/23 10/22/23 Empagliflozin [Jardiance] 10 mg PO DAILY 04/11/23 10/22/23 Ferrous Sulfate [Feosol] 325 mg PO DAILY 04/11/23 10/22/23 Atorvastatin [Lipitor] 20 mg PO HS 10/22/23 10/22/23 Furosemide [Lasix] 40 mg PO DAILY 10/22/23 10/22/23 HYDROcodone/APAP 10-325MG [[place] 1 tab PO Q6HR PRN 10/22/23 10/22/23 10-325] Insulin Aspart [NovoLOG Flexpen] See Protocol SQ PC-TID 10/22/23 10/22/23 Levothyroxine Sodium [Synthroid] 25 mcg PO DAILY 10/22/23 10/22/23 Losartan [Cozaar] 50 mg PO DAILY 10/22/23 10/22/23 Semaglutide [Ozempic] 0.25 mg SQ WE 10/22/23 10/22/23 Spironolactone [Aldactone] 12.5 mg PO DAILY 10/22/23 10/22/23 Previous Rx's Medication Instructions Recorded Nitroglycerin Sl Tabs [Nitrostat] 0.4 mg SUBLINGUAL Q5M PRN #50 tab 03/09/23 Metoprolol Tartrate [Lopressor] 25 mg PO TID #90 tab 10/25/23 Allergies Allergy/AdvReac Type Severity Reaction Status Date / Time No Known Allergies Allergy Verified 10/22/23 09:15 Review of Systems ROS Statement: Those systems with pertinent positive or pertinent negative responses have been documented in the HPI. ROS Other: All systems not noted in ROS Statement are negative. Past Medical History Past Medical History: Atrial Fibrillation, Coronary Artery Disease (CAD), Diabetes Mellitus, GERD/Reflux, GI Bleed, Hyperlipidemia, Hypertension, Osteoarthritis (OA) Additional Past Medical History / Comment(s): See Dr Cabrales's H&P. History of Any Multi-Drug Resistant Organisms: None Reported Past Surgical History: Appendectomy, Section, Cholecystectomy, Hysterectomy, Joint Replacement, Orthopedic Surgery Additional Past Surgical History / Comment(s): Bilateral carpal tunnel, bilateral total knee replacements, colonoscopy, EGD. Past Anesthesia/Blood Transfusion Reactions: Previous Problems w/ Anesthesia Additional Past Anesthesia/Blood Transfusion Reaction / Comment(s): Had spinal fluid leak w/ prior spinal for knee surgery-stated was told not to have spinals. No problems with blood transfusion received 30-40 yrs ago. Date of Last Stent Placement:: 02/2023 Past Psychological History: No Psychological Hx Reported Smoking Status: Never smoker Past Alcohol Use History: None Reported Past Drug Use History: None Reported - Past Family History Mother Family Medical History: No Reported History General Exam General appearance: alert, in no apparent distress Head exam: Present: atraumatic, normocephalic, normal inspection Eye exam: Present: normal appearance, PERRL, EOMI. Absent: scleral icterus, conjunctival injection, periorbital swelling ENT exam: Present: normal exam, mucous membranes moist Neck exam: Present: normal inspection. Absent: tenderness, meningismus, lymphadenopathy Respiratory exam: Present: normal lung sounds bilaterally. Absent: respiratory distress, wheezes, rales, rhonchi, stridor Cardiovascular Exam: Present: normal rhythm, bradycardia, normal heart sounds. Absent: systolic murmur, diastolic murmur, rubs, gallop, clicks GI/Abdominal exam: Present: soft, normal bowel sounds. Absent: distended, tenderness, guarding, rebound, rigid Extremities exam: Present: normal inspection, full ROM, normal capillary refill. Absent: tenderness, pedal edema, joint swelling, calf tenderness Back exam: Present: normal inspection Neurological exam: Present: alert, oriented X3, CN II-XII intact Psychiatric exam: Present: normal affect, normal mood Skin exam: Present: warm, dry, intact, normal color. Absent: rash Course Vital Signs 10/22/23 10/22/23 10/22/23 03:11 03:19 03:38 Temperature 98.3 F Pulse Rate 31 L 32 L Pulse Rate [ 31 L Layup Worker ] Respiratory 18 15 Rate Blood Pressure 90/52 100/42 O2 Sat by Pulse 95 96 Oximetry 10/22/23 10/22/23 10/22/23 04:00 04:30 05:00 Temperature Pulse Rate 30 L 36 L 35 L Pulse Rate [ Layup Worker ] Respiratory 12 13 23 Rate Blood Pressure 91/45 104/91 97/73 O2 Sat by Pulse 95 96 95 Oximetry 10/22/23 10/22/23 10/22/23 05:30 06:00 08:00 Temperature Pulse Rate 36 L 33 L 34 L Pulse Rate [ Layup Worker ] Respiratory 14 13 18 Rate Blood Pressure 104/93 123/54 116/75 O2 Sat by Pulse 97 99 98 Oximetry 10/22/23 10/22/23 10/22/23 09:26 10:28 11:00 Temperature Pulse Rate 36 L 35 L 34 L Pulse Rate [ Layup Worker ] Respiratory 18 18 18 Rate Blood Pressure 123/54 123/57 O2 Sat by Pulse 94 L 98 99 Oximetry 10/22/23 10/22/23 10/22/23 13:14 13:52 18:33 Temperature Pulse Rate 35 L 35 L Pulse Rate [ Layup Worker ] Respiratory 18 18 Rate Blood Pressure 129/52 131/83 O2 Sat by Pulse 99 100 98 Oximetry 10/22/23 10/22/23 20:54 23:21 Temperature 97.8 F Pulse Rate 36 L 40 L Pulse Rate [ Layup Worker ] Respiratory 18 18 Rate Blood Pressure 141/60 O2 Sat by Pulse 98 95 Oximetry - Reevaluation(s) Reevaluation #1: 10/22/23 06:[address] Forbes, all nephrotoxic agents will be held as well as rate controlling medicines Medical Decision Making - Medical Decision Making Was pt. sent in by a medical professional or institution (, PA, MOSAICIST, urgent care, hospital, or usp...) When possible be specific @ -No Did you speak to anyone other than the patient for history (EMS, parent, family, police, friend...)? What history was obtained from this source @ -Spoke with EMS for history Did you review nursing and triage notes (agree or disagree)? Why? @ -I reviewed and agree with nursing and triage notes Were old charts reviewed (outside hosp., previous admission, EMS record, old EKG, old radiological studies, urgent care reports/EKG's, usp records)? Report findings @ -I reviewed patient's KIMBER from March 2023 Differential Diagnosis (chest pain, altered mental status, abdominal pain women, abdominal pain men, vaginal bleeding, weakness, fever, dyspnea, syncope, headache, dizziness, GI bleed, back pain, seizure, CVA, palpatations, mental health, musculoskeletal)? @ -Differential Weakness: Hypoglycemia, shock, sepsis, hyponatremia, anemia, infection, UT, ETOH, adverse medicine reaction, overdose, stroke, this is not meant to be an all-inclusive list. EKG interpreted by me (3pts min.). @ -Yes, EKG at 318 demonstrates sinus bradycardia with rate of 28. QRS 105. QTc of 308. No acute ST segment elevations or depressions Repeat EKG done at 329 continues to demonstrate sinus bradycardia with a rate of 29. QRS 110. QTc of 327. No acute ST segment elevations or depressions X-rays interpreted by me (1pt min.). @ -Yes and demonstrates no acute process CT interpreted by me (1pt min.). @ -None done U/S interpreted by me (1pt. min.). @ -None done What testing was considered but not performed or refused? (CT, X-rays, U/S, labs)? Why? @ -None What meds were considered but not given or refused? Why? @ -None Did you discuss the management of the patient with other professionals (professionals i.e. DrMindi, PA, MOSAICIST, lab, RT, psych nurse, social media editor, city comptroller, teacher, grant officer, correctional casework specialist)? Give summary @ -I spoke with Dr. Forbes from cardiology. Also spoke with Dr. Moore for admission Was smoking cessation discussed for >3mins.? @ -No Was critical care preformed (if so, how long)? @ -No Were there social determinants of health that impacted care today? How? (Homelessness, low income, unemployed, alcoholism, drug addiction, transportation, low edu. Level, literacy, decrease access to med. care, long-term, rehab)? @ -No Was there de-escalation of care discussed even if they declined (Discuss DNR or withdrawal of care, Hospice)? DNR status @ -No What co-morbidities impacted this encounter? (DM, HTN, Smoking, COPD, CAD, Cancer, CVA, ARF, Chemo, Hep., AIDS, mental health diagnosis, sleep apnea, morbid obesity)? @ -Thyroid disorder, diabetes, A-fib Was patient admitted / discharged? Hospital course, mention meds given and route, prescriptions, significant lab abnormalities, going to OR and other pertinent info. @ -Upon arrival patient was seen and evaluated in room 10. Thorough history and physical exam was performed. Patient does have markedly low heart rate. S he is placed on continuous pulse ox and cardiac monitoring. Twelve-lead EKG was performed which demonstrates sinus bradycardia. She is hemodynamically stable and therefore laboratory studies are conducted. Chest x-ray is performed. Upon return the results I did call and speak with Dr. Forbes. All AV cathleen agents will be held at this time. Patient is in kidney failure and therefore Roque catheter is inserted. Spoke with Dr. Campos who will admit the patient. Undiagnosed new problem with uncertain prognosis? @ -yes Drug Therapy requiring intensive monitoring for toxicity (Heparin, Nitro, Insulin, Cardizem)? @ -No Were any procedures done? @ -No Diagnosis/symptom? @ -Multiple falls, acute bradycardia, acute kidney injury, acute UTI Acute, or Chronic, or Acute on Chronic? @ -Acute Uncomplicated (without systemic symptoms) or Complicated (systemic symptoms)? @ -Complicated Side effects of treatment? @ -No Exacerbation, Progression, or Severe Exacerbation? @ -No Poses a threat to life or bodily function? How? (Chest pain, USA, UT, pneumonia, PE, COPD, DKA, ARF, appy, cholecystitis, CVA, Diverticulitis, Homicidal, Suicidal, threat to staff... and all critical care pts) @ -Yes this patient's heart rate is markedly low - Lab Data Result diagrams: 10/23/23 08:23 10/25/23 07:53 Lab Results 10/22/23 10/22/23 10/22/23 Range/Units 03:25 03:25 03:25 WBC 10.1 (3.8-10.6) k/uL RBC 4.37 (3.80-5.40) m/uL Hgb 11.7 (11.4-16.0) gm/dL Hct 37.3 (34.0-46.0) % MCV 85.3 (80.0-100.0) fL MCH 26.8 (25.0-35.0) pg MCHC 31.4 (31.0-37.0) g/dL RDW 17.8 H (11.5-15.5) % Plt Count 235 (150-450) k/uL MPV 8.8 Neutrophils % 76 % Lymphocytes % 16 % Monocytes % 6 % Eosinophils % 0 % Basophils % 0 % Neutrophils # 7.7 (1.3-7.7) k/uL Lymphocytes # 1.6 (1.0-4.8) k/uL Monocytes # 0.6 (0-1.0) k/uL Eosinophils # 0.0 (0-0.7) k/uL Basophils # 0.0 (0-0.2) k/uL Hypochromasia Slight Anisocytosis Slight PT 13.2 H (10.0-12.5) sec INR 1.2 H (<1.2) APTT 31.6 H (22.0-30.0) sec Sodium 133 L (137-145) mmol/L Potassium (3.5-5.1) mmol/L Chloride 107 (98-107) mmol/L Carbon Dioxide 10 L (22-30) mmol/L Anion Gap 16 mmol/L BUN 100 H (7-17) mg/dL Creatinine 3.39 H (0.52-1.04) mg/dL Est GFR (CKD-EPI)AfAm 15 (>60 ml/min/1.73 sqM) Est GFR (CKD-EPI)NonAf 13 (>60 ml/min/1.73 sqM) Glucose 158 H (74-99) mg/dL POC Glucose (mg/dL) (70-110) mg/dL POC Glu Wallet Assembler ID Plasma Lactic Acid Travon (0.7-2.0) mmol/L Calcium 9.4 (8.4-10.2) mg/dL Magnesium 2.1 (1.6-2.3) mg/dL Total Bilirubin 0.6 (0.2-1.3) mg/dL AST 29 (14-36) U/L ALT 18 (4-34) U/L Alkaline Phosphatase 62 (38-126) U/L Troponin I (0.000-0.034) ng/mL NT-Pro-B Natriuret Pep 3410 pg/mL Total Protein 7.0 (6.3-8.2) g/dL Albumin 4.2 (3.5-5.0) g/dL TSH 10.900 H (0.465-4.680) mIU/L Free T4 0.98 (0.78-2.19) ng/dL Urine Color Urine Appearance (Clear) Urine pH (5.0-8.0) Ur Specific [place] (1.001-1.035) Urine Protein (Negative) Urine Glucose (UA) (Negative) Urine Ketones (Negative) Urine Blood (Negative) Urine Nitrite (Negative) Urine Bilirubin (Negative) Urine Urobilinogen (<2.0) mg/dL Ur Leukocyte Esterase (Negative) Urine RBC (0-5) /hpf Urine WBC (0-5) /hpf Ur Squamous Epith Cells (0-4) /hpf Urine Bacteria (None) /hpf Hyaline Casts (0-2) /lpf Urine Mucus (None) /hpf 10/22/23 10/22/23 10/22/23 Range/Units 03:25 03:25 06:51 WBC (3.8-10.6) k/uL RBC (3.80-5.40) m/uL Hgb (11.4-16.0) gm/dL Hct (34.0-46.0) % MCV (80.0-100.0) fL MCH (25.0-35.0) pg MCHC (31.0-37.0) g/dL RDW (11.5-15.5) % Plt Count (150-450) k/uL MPV Neutrophils % % Lymphocytes % % Monocytes % % Eosinophils % % Basophils % % Neutrophils # (1.3-7.7) k/uL Lymphocytes # (1.0-4.8) k/uL Monocytes # (0-1.0) k/uL Eosinophils # (0-0.7) k/uL Basophils # (0-0.2) k/uL Hypochromasia Anisocytosis PT (10.0-12.5) sec INR (<1.2) APTT (22.0-30.0) sec Sodium (137-145) mmol/L Potassium (3.5-5.1) mmol/L Chloride (98-107) mmol/L Carbon Dioxide (22-30) mmol/L Anion Gap mmol/L BUN (7-17) mg/dL Creatinine (0.52-1.04) mg/dL Est GFR (CKD-EPI)AfAm (>60 ml/min/1.73 sqM) Est GFR (CKD-EPI)NonAf (>60 ml/min/1.73 sqM) Glucose (74-99) mg/dL POC Glucose (mg/dL) 176 H (70-110) mg/dL POC Glu Wallet Assembler ID Lucio, Lali Plasma Lactic Acid Travon 1.6 (0.7-2.0) mmol/L Calcium (8.4-10.2) mg/dL Magnesium (1.6-2.3) mg/dL Total Bilirubin (0.2-1.3) mg/dL AST (14-36) U/L ALT (4-34) U/L Alkaline Phosphatase (38-126) U/L Troponin I 0.019 (0.000-0.034) ng/mL NT-Pro-B Natriuret Pep pg/mL Total Protein (6.3-8.2) g/dL Albumin (3.5-5.0) g/dL TSH (0.465-4.680) mIU/L Free T4 (0.78-2.19) ng/dL Urine Color Urine Appearance (Clear) Urine pH (5.0-8.0) Ur Specific [place] (1.001-1.035) Urine Protein (Negative) Urine Glucose (UA) (Negative) Urine Ketones (Negative) Urine Blood (Negative) Urine Nitrite (Negative) Urine Bilirubin (Negative) Urine Urobilinogen (<2.0) mg/dL Ur Leukocyte Esterase (Negative) Urine RBC (0-5) /hpf Urine WBC (0-5) /hpf Ur Squamous Epith Cells (0-4) /hpf Urine Bacteria (None) /hpf Hyaline Casts (0-2) /lpf Urine Mucus (None) /hpf 10/22/23 10/22/23 10/22/23 Range/Units 06:58 19:02 20:37 WBC (3.8-10.6) k/uL RBC (3.80-5.40) m/uL Hgb (11.4-16.0) gm/dL Hct (34.0-46.0) % MCV (80.0-100.0) fL MCH (25.0-35.0) pg MCHC (31.0-37.0) g/dL RDW (11.5-15.5) % Plt Count (150-450) k/uL MPV Neutrophils % % Lymphocytes % % Monocytes % % Eosinophils % % Basophils % % Neutrophils # (1.3-7.7) k/uL Lymphocytes # (1.0-4.8) k/uL Monocytes # (0-1.0) k/uL Eosinophils # (0-0.7) k/uL Basophils # (0-0.2) k/uL Hypochromasia Anisocytosis PT (10.0-12.5) sec INR (<1.2) APTT (22.0-30.0) sec Sodium (137-145) mmol/L Potassium (3.5-5.1) mmol/L Chloride (98-107) mmol/L Carbon Dioxide (22-30) mmol/L Anion Gap mmol/L BUN (7-17) mg/dL Creatinine (0.52-1.04) mg/dL Est GFR (CKD-EPI)AfAm (>60 ml/min/1.73 sqM) Est GFR (CKD-EPI)NonAf (>60 ml/min/1.73 sqM) Glucose (74-99) mg/dL POC Glucose (mg/dL) 246 H 152 H (70-110) mg/dL POC Glu Wallet Assembler ARNALDO Rowe, Ciara Rowe, Ciara Plasma Lactic Acid Travon (0.7-2.0) mmol/L Calcium (8.4-10.2) mg/dL Magnesium (1.6-2.3) mg/dL Total Bilirubin (0.2-1.3) mg/dL AST (14-36) U/L ALT (4-34) U/L Alkaline Phosphatase (38-126) U/L Troponin I (0.000-0.034) ng/mL NT-Pro-B Natriuret Pep pg/mL Total Protein (6.3-8.2) g/dL Albumin (3.5-5.0) g/dL TSH (0.465-4.680) mIU/L Free T4 (0.78-2.19) ng/dL Urine Color Yellow Urine Appearance Cloudy H (Clear) Urine pH 5.0 (5.0-8.0) Ur Specific [place] 1.024 (1.001-1.035) Urine Protein 1+ H (Negative) Urine Glucose (UA) Negative (Negative) Urine Ketones Negative (Negative) Urine Blood Negative (Negative) Urine Nitrite Negative (Negative) Urine Bilirubin Negative (Negative) Urine Urobilinogen <2.0 (<2.0) mg/dL Ur Leukocyte Esterase Large H (Negative) Urine RBC 2 (0-5) /hpf Urine WBC 19 H (0-5) /hpf Ur Squamous Epith Cells 2 (0-4) /hpf Urine Bacteria Many H (None) /hpf Hyaline Casts 7 H (0-2) /lpf Urine Mucus Rare H (None) /hpf 10/23/23 10/23/23 10/23/23 Range/Units 05:42 08:23 08:23 WBC 10.5 (3.8-10.6) k/uL RBC 4.36 (3.80-5.40) m/uL Hgb 11.7 (11.4-16.0) gm/dL Hct 39.2 (34.0-46.0) % MCV 89.9 (80.0-100.0) fL MCH 26.9 (25.0-35.0) pg MCHC 29.9 L (31.0-37.0) g/dL RDW 17.5 H (11.5-15.5) % Plt Count 174 (150-450) k/uL MPV 9.1 Neutrophils % 88 % Lymphocytes % 6 % Monocytes % 5 % Eosinophils % 0 % Basophils % 0 % Neutrophils # 9.2 H (1.3-7.7) k/uL Lymphocytes # 0.6 L (1.0-4.8) k/uL Monocytes # 0.6 (0-1.0) k/uL Eosinophils # 0.0 (0-0.7) k/uL Basophils # 0.0 (0-0.2) k/uL Hypochromasia Marked Anisocytosis Slight PT (10.0-12.5) sec INR (<1.2) APTT (22.0-30.0) sec Sodium 137 (137-145) mmol/L Potassium 6.6 H* (3.5-5.1) mmol/L Chloride 112 H (98-107) mmol/L Carbon Dioxide 13 L (22-30) mmol/L Anion Gap 12 mmol/L BUN 86 H (7-17) mg/dL Creatinine 2.01 H (0.52-1.04) mg/dL Est GFR (CKD-EPI)AfAm 29 (>60 ml/min/1.73 sqM) Est GFR (CKD-EPI)NonAf 25 (>60 ml/min/1.73 sqM) Glucose 204 H (74-99) mg/dL POC Glucose (mg/dL) 180 H (70-110) mg/dL POC Glu Wallet Assembler ID Gardenia Doll Plasma Lactic Acid Travon (0.7-2.0) mmol/L Calcium 9.5 (8.4-10.2) mg/dL Magnesium 2.1 (1.6-2.3) mg/dL Total Bilirubin (0.2-1.3) mg/dL AST (14-36) U/L ALT (4-34) U/L Alkaline Phosphatase (38-126) U/L Troponin I (0.000-0.034) ng/mL NT-Pro-B Natriuret Pep pg/mL Total Protein (6.3-8.2) g/dL Albumin (3.5-5.0) g/dL TSH (0.465-4.680) mIU/L Free T4 (0.78-2.19) ng/dL Urine Color Urine Appearance (Clear) Urine pH (5.0-8.0) Ur Specific [place] (1.001-1.035) Urine Protein (Negative) Urine Glucose (UA) (Negative) Urine Ketones (Negative) Urine Blood (Negative) Urine Nitrite (Negative) Urine Bilirubin (Negative) Urine Urobilinogen (<2.0) mg/dL Ur Leukocyte Esterase (Negative) Urine RBC (0-5) /hpf Urine WBC (0-5) /hpf Ur Squamous Epith Cells (0-4) /hpf Urine Bacteria (None) /hpf Hyaline Casts (0-2) /lpf Urine Mucus (None) /hpf 10/23/23 10/23/23 10/23/23 Range/Units 11:30 11:41 16:22 WBC (3.8-10.6) k/uL RBC (3.80-5.40) m/uL Hgb (11.4-16.0) gm/dL Hct (34.0-46.0) % MCV (80.0-100.0) fL MCH (25.0-35.0) pg MCHC (31.0-37.0) g/dL RDW (11.5-15.5) % Plt Count (150-450) k/uL MPV Neutrophils % % Lymphocytes % % Monocytes % % Eosinophils % % Basophils % % Neutrophils # (1.3-7.7) k/uL Lymphocytes # (1.0-4.8) k/uL Monocytes # (0-1.0) k/uL Eosinophils # (0-0.7) k/uL Basophils # (0-0.2) k/uL Hypochromasia Anisocytosis PT (10.0-12.5) sec INR (<1.2) APTT (22.0-30.0) sec Sodium (137-145) mmol/L Potassium 6.0 H (3.5-5.1) mmol/L Chloride (98-107) mmol/L Carbon Dioxide (22-30) mmol/L Anion Gap mmol/L BUN (7-17) mg/dL Creatinine (0.52-1.04) mg/dL Est GFR (CKD-EPI)AfAm (>60 ml/min/1.73 sqM) Est GFR (CKD-EPI)NonAf (>60 ml/min/1.73 sqM) Glucose (74-99) mg/dL POC Glucose (mg/dL) 263 H 155 H (70-110) mg/dL POC Glu Wallet Assembler ID Fujita, Mere Fujita, Mere Plasma Lactic Acid Travon (0.7-2.0) mmol/L Calcium (8.4-10.2) mg/dL Magnesium (1.6-2.3) mg/dL Total Bilirubin (0.2-1.3) mg/dL AST (14-36) U/L ALT (4-34) U/L Alkaline Phosphatase (38-126) U/L Troponin I (0.000-0.034) ng/mL NT-Pro-B Natriuret Pep pg/mL Total Protein (6.3-8.2) g/dL Albumin (3.5-5.0) g/dL TSH (0.465-4.680) mIU/L Free T4 (0.78-2.19) ng/dL Urine Color Urine Appearance (Clear) Urine pH (5.0-8.0) Ur Specific [place] (1.001-1.035) Urine Protein (Negative) Urine Glucose (UA) (Negative) Urine Ketones (Negative) Urine Blood (Negative) Urine Nitrite (Negative) Urine Bilirubin (Negative) Urine Urobilinogen (<2.0) mg/dL Ur Leukocyte Esterase (Negative) Urine RBC (0-5) /hpf Urine WBC (0-5) /hpf Ur Squamous Epith Cells (0-4) /hpf Urine Bacteria (None) /hpf Hyaline Casts (0-2) /lpf Urine Mucus (None) /hpf 10/23/23 10/24/23 Range/Units 20:08 06:03 WBC (3.8-10.6) k/uL RBC (3.80-5.40) m/uL Hgb (11.4-16.0) gm/dL Hct (34.0-46.0) % MCV (80.0-100.0) fL MCH (25.0-35.0) pg MCHC (31.0-37.0) g/dL RDW (11.5-15.5) % Plt Count (150-450) k/uL MPV Neutrophils % % Lymphocytes % % Monocytes % % Eosinophils % % Basophils % % Neutrophils # (1.3-7.7) k/uL Lymphocytes # (1.0-4.8) k/uL Monocytes # (0-1.0) k/uL Eosinophils # (0-0.7) k/uL Basophils # (0-0.2) k/uL Hypochromasia Anisocytosis PT (10.0-12.5) sec INR (<1.2) APTT (22.0-30.0) sec Sodium (137-145) mmol/L Potassium (3.5-5.1) mmol/L Chloride (98-107) mmol/L Carbon Dioxide (22-30) mmol/L Anion Gap mmol/L BUN (7-17) mg/dL Creatinine (0.52-1.04) mg/dL Est GFR (CKD-EPI)AfAm (>60 ml/min/1.73 sqM) Est GFR (CKD-EPI)NonAf (>60 ml/min/1.73 sqM) Glucose (74-99) mg/dL POC Glucose (mg/dL) 274 H 118 H (70-110) mg/dL POC Glu Wallet Assembler ID Mix, Rosmery Mix, Rosmery Plasma Lactic Acid Travon (0.7-2.0) mmol/L Calcium (8.4-10.2) mg/dL Magnesium (1.6-2.3) mg/dL Total Bilirubin (0.2-1.3) mg/dL AST (14-36) U/L ALT (4-34) U/L Alkaline Phosphatase (38-126) U/L Troponin I (0.000-0.034) ng/mL NT-Pro-B Natriuret Pep pg/mL Total Protein (6.3-8.2) g/dL Albumin (3.5-5.0) g/dL TSH (0.465-4.680) mIU/L Free T4 (0.78-2.19) ng/dL Urine Color Urine Appearance (Clear) Urine pH (5.0-8.0) Ur Specific [place] (1.001-1.035) Urine Protein (Negative) Urine Glucose (UA) (Negative) Urine Ketones (Negative) Urine Blood (Negative) Urine Nitrite (Negative) Urine Bilirubin (Negative) Urine Urobilinogen (<2.0) mg/dL Ur Leukocyte Esterase (Negative) Urine RBC (0-5) /hpf Urine WBC (0-5) /hpf Ur Squamous Epith Cells (0-4) /hpf Urine Bacteria (None) /hpf Hyaline Casts (0-2) /lpf Urine Mucus (None) /hpf Disposition Clinical Impression: JL (acute kidney injury), Bradycardia, Falls Disposition: ADMITTED IP TO THIS [facility] Condition: Stable Is patient prescribed a controlled substance at d/c from ED?: No Time of Disposition: 06:20 Decision to Admit Reason: Admit from EC Decision Date: 10/22/23 Decision Time: 06:20
[2023-10-22 03:47] LABS: Anisocytosis Slight; Basophils % (A) 0 %; Eosinophils % (A) 0 %; HCT 37.3 % (34.0-46.0); HGB 11.7 gm/dL (11.4-16.0); Hypochromasia Slight; Lymphocytes # (A) 1.6 k/uL (1.0-4.8); Lymphocytes % (A) 16 %; MCH 26.8 pg (25.0-35.0); MCHC 31.4 g/dL (31.0-37.0); MCV 85.3 fL (80.0-100.0); Mean Platelet Volume 8.8; Monocytes # (A) 0.6 k/uL (0-1.0); Monocytes % (A) 6 %; Neutrophils # (A) 7.7 k/uL (1.3-7.7); Neutrophils % (A) 76 %; Platelet Count 235 k/uL (150-450); RBC 4.37 m/uL (3.80-5.40); RDW 17.8 % (11.5-15.5); WBC 10.1 k/uL (3.8-10.6)
[2023-10-22 04:03] LABS: INR 1.2 (<1.2); Partial Thromboplastin Time 31.6 sec (22.0-30.0); Prothrombin Time 13.2 sec (10.0-12.5)
[2023-10-22] MEDS: SODIUM CHLORIDE 0.9% 1,000 ML IV STA (04:03)
[2023-10-22 04:13] LABS: ALT 18 U/L (4-34); AST 29 U/L (14-36); African American GFR (CKD) 15 (>60 ml/min/1.73 sqM); Albumin 4.2 g/dL (3.5-5.0); Alkaline Phosphatase 62 U/L (38-126); Anion Gap 16 mmol/L; Blood Urea Nitrogen 100 mg/dL (7-17); Calcium 9.4 mg/dL (8.4-10.2); Carbon Dioxide 10 mmol/L (22-30); Chloride 107 mmol/L (98-107); Glucose 158 mg/dL (74-99); Magnesium 2.1 mg/dL (1.6-2.3); Non-African American GFR(CKD) 13 (>60 ml/min/1.73 sqM); Sodium 133 mmol/L (137-145); Total Bilirubin 0.6 mg/dL (0.2-1.3)
[2023-10-22 04:21] LABS: NT-Pro-B-Type Natriuretic Pept 3410 pg/mL
[2023-10-22 05:46] LABS: T4, Free (Free Thyroxine) 0.98 ng/dL (0.78-2.19)
[2023-10-22] MEDS ORDERED: NALOXONE 0.4 MG/ML 1 ML VIAL IV PRN (06:22)
[2023-10-22] MEDS: SODIUM CHLORIDE 0.9% 1,000 ML IV SCH (06:36)
[2023-10-22 06:52] LABS: Glucose,Whole Blood 176 mg/dL (70-110)
--- NOTE | 2023-10-22 06:57 | XR ---
EXAM: XR Chest, 1 View CLINICAL HISTORY: ITS.REASON XR Reason: Weakness TECHNIQUE: Frontal view of the chest. COMPARISON: 04/29/20 FINDINGS: Lungs: Low lung volume accentuate pulmonary lung markings. No dense consolidation Pleural space: Unremarkable. No pneumothorax. Heart: Cardiovascular silhouette, prominent and likely accentuated by low lung volume. Mediastinum: Stable mediastinal contour and tortuous thoracic aorta. Bones/joints: Unremarkable. No acute fracture. IMPRESSION: 1. Low lung volume. 2. Borderline cardiomegaly, likely accentuated by low lung volume.
[2023-10-22 07:26] LABS: Appearance,Urine Cloudy (Clear); Bacteria,Urine Many /hpf; Bilirubin,Urine Negative (Negative); Blood,Urine Negative (Negative); Color,Urine Yellow; Glucose,Urine (UA) Negative (Negative); Hyaline Casts,Urine 7 /lpf (0-2); Ketones,Urine Negative (Negative); Leukocyte Esterase,Urine Large (Negative); Mucus,Urine Rare /hpf; Nitrite,Urine Negative (Negative); Protein,Urine 1+ (Negative); RBC,Urine 2 /hpf (0-5); Specific Gravity,Urine 1.024 (1.001-1.035); Squamous Epithelial Cell,Urine 2 /hpf (0-4); Urobilinogen,Urine <2.0 mg/dL (<2.0); WBC,Urine 19 /hpf (0-5)
[2023-10-22] MEDS: ASPIRIN 81 MG PO SCH (09:25)
--- NOTE | 2023-10-22 09:44 | P.CRDCN ---
History of Present Illness History of present illness: HISTORY OF PRESENT ILLNESS: This is a 67-year-old female with a past medical history significant for coronary artery disease with previous stenting, persistent atrial fibrillation, hypertension, hyperlipidemia, diabetes, and cardiomyopathy. Patient follows in the office with Dr. Cabrales and recently evaluated by Dr. Kimbrough for atrial fibrillation. We have been asked to see the patient in consultation for bradycardia. Patient examined at the bedside in the emergency room. Patient presented to the hospital with a chief complaint of generalized weakness. Patient states over the past 2 to 3 weeks she states her legs have began to feel shaky and describes them as feeling like Jell-O. She reports frequent falls at home. She denies having any episodes of syncope. She denies any dizziness or lightheadedness. She states that she ambulates with 2 canes which is not new. She denied any chest pain or pressure. She denied any shortness of breath. The patient was recently evaluated in the office by Dr. Leiva and was scheduled to undergo EP study and ablation next week. Patient was found to be bradycardic upon arrival to the hospital with a heart rate in the 30s. EKG reveals junctional rhythm. The patient was taking metoprolol succinate 75 mg twice a day. Patient was also found to be in acute renal failure with a creatinine of 3.39. DIAGNOSTICS: - EKG reveals functional rhythm - Chest xray low lung volume. Borderline cardiomegaly, likely accentuated by low lung volume. - Laboratory data: WBC 10.1. Hemoglobin 11.7. Platelet count 235. Sodium 133. BUN 100. Creatinine 3.39. Troponin negative x 1. proBNP 3410. TSH 10.9. Free T40.98. - Current home cardiac medication list has not been updated at the time of examination - Most recent echocardiogram obtained in August 2023 at the office revealed ejection fraction 55%, moderate MR, moderate TR -Patient underwent KIMBER in March 2023 revealing normal left atrial size. No evidence of mass or thrombus seen. No evidence of thrombus or mass seen in left atrial appendage. Intact intra-atrial septum. No evidence of atrial septal defect or patent foramen ovale on color Doppler. No right to left shunting with bubble study. Normal global LV size and systolic function. Normal overall RV size. Normal global RV size and systolic function. Structurally intact trileaflet aortic valve with no significant calcification. No significant stenosis or regurgitation. Structurally normal mitral valve with no evidence of stenosis or regurgitation. Tricuspid valve is structurally normal. - Cardiac catheterization history: February [address] Forbes. Patient underwent stenting of the mid LAD. Patient was found to have diffuse disease distally. REVIEW OF SYSTEMS: At the time of my exam: CONSTITUTIONAL: Denies fever or chills. HEENT: Denies blurred vision, vision changes, or eye pain. Denies hemoptysis CARDIOVASCULAR: Denies chest pain. Denies orthopnea. Denies PND. Denies palpitations RESPIRATORY: Denies shortness of breath. GASTROINTESTINAL: Denies abdominal pain. Denies nausea or vomiting. HEMATOLOGIC: Denies bleeding disorders. GENITOURINARY: Denies any blood in urine. SKIN: Denies pruitis. Denies rash. PHYSICAL EXAM: VITAL SIGNS: Reviewed. GENERAL: Well-developed in no acute distress. HEENT: Head is normocephalic. Pupils are equal, round. Sclerae anicteric. Mucous membranes of the mouth are moist. Neck supple. No JVD or thyromegaly LUNGS: Respirations even and unlabored. Lungs essentially clear to auscultation bilaterally. HEART: Bradycardic. Regular rate and rhythm. S1 and S2 heard. ABDOMEN: Soft. Nondistended. Nontender. EXTREMITIES: Normal range of motion. No clubbing or cyanosis. Peripheral pulses intact. No lower extremity edema NEUROLOGIC: Awake and alert. Oriented x 3. ASSESSMENT: Recurrent falls without syncope Junctional bradycardia, HR 30s, on high dose metoprolol outpatient Acute renal failure, possibly secondary to hypoperfusion from significant bradycardia History of KIMBER and cardioversion, March 2023 Coronary artery disease with previous stenting, most recently mid LAD and February 2023 Persistent atrial fibrillation of unknown duration History of mild ischemic cardiomyopathy, 40 to 45%, with improved EF, most recently 55% Hypertension Hyperlipidemia Diabetes Hypothyroidism PLAN: Obtain 2D echo to assess cardiac structure and function Discontinue amiodarone as patient was no longer taking this as she was scheduled to undergo ablation in the near future Discontinue Plavix as patient stenting was greater than 6 months ago Resume Xarelto. Add aspirin 81 mg daily Hold any AV cathleen blocking agents at this time secondary to significant bradycardia Continue telemetry monitoring No plans for PPM at this time. Beta lawson is being held and hopefully heart rates will improve. If not, will discuss PPM need Continue to monitor kidney function. Hold nephrotoxic agents Patient scheduled for ablation on 10/28/[address] Kimbrough. Pending clinical course this may need to be rescheduled. Further recommendations pending patient course Nurse practitioner note has been reviewed by physician. Signing provider agrees with the documented findings, assessment, and plan of care documented by VET ASSISTANT as a scribe. Past Medical History Past Medical History: Atrial Fibrillation, Coronary Artery Disease (CAD), Diabetes Mellitus, GERD/Reflux, GI Bleed, Hyperlipidemia, Hypertension, Osteoarthritis (OA) Additional Past Medical History / Comment(s): See Dr Cabraels's H&P. History of Any Multi-Drug Resistant Organisms: None Reported Past Surgical History: Appendectomy, Section, Cholecystectomy, Hysterectomy, Joint Replacement, Orthopedic Surgery Additional Past Surgical History / Comment(s): Bilateral carpal tunnel, bilateral total knee replacements, colonoscopy, EGD. Past Anesthesia/Blood Transfusion Reactions: Previous Problems w/ Anesthesia Additional Past Anesthesia/Blood Transfusion Reaction / Comment(s): Had spinal fluid leak w/ prior spinal for knee surgery-stated was told not to have spinals. No problems with blood transfusion received 30-40 yrs ago. Date of Last Stent Placement:: 02/2023 Past Psychological History: No Psychological Hx Reported Smoking Status: Never smoker Past Alcohol Use History: None Reported Past Drug Use History: None Reported - Past Family History Mother Family Medical History: No Reported History Medications and Allergies Home Medications Medication Instructions Recorded Confirmed Type Omeprazole 20 mg PO HS 06/04/16 04/16/23 History Potassium Chloride [K-Tab ER] 10 meq PO BID 06/04/16 04/16/23 History Rivaroxaban [Xarelto] 20 mg PO W/SUPPER 06/04/16 04/16/23 History allopurinoL [Zyloprim] 300 mg PO DAILY 06/04/16 04/16/23 History metFORMIN HCL [Glucophage] 1,000 mg PO BID 04/29/20 04/16/23 History Cholecalciferol [Vitamin D3 (25 25 mcg PO DAILY 09/03/22 04/16/23 History Mcg = 1000 Iu)] Insulin Glargine,Hum.rec.anlog 80 unit SQ HS 09/03/22 04/16/23 History [Lantus Solostar Pen] Metoprolol Succinate (ER) [Toprol 50 mg PO DAILY 09/03/22 04/16/23 History XL] oxyBUTYnin chloride [Ditropan] 5 mg PO DAILY 09/03/22 04/16/23 History Pregabalin [Lyrica] 150 mg PO TID 11/17/22 04/16/23 History Insulin Aspart [NovoLOG Flexpen] 15 units SQ AC-TID #0 11/20/22 04/16/23 Rx Bumetanide [BUMEX] 1 mg PO DAILY 03/06/23 04/16/23 History Atorvastatin [Lipitor] 40 mg PO HS 90 Days #90 tab 03/09/23 04/16/23 Rx Clopidogrel [Plavix] 75 mg PO DAILY 90 Days #90 tab 03/09/23 04/16/23 Rx Nitroglycerin Sl Tabs [Nitrostat] 0.4 mg SUBLINGUAL Q5M PRN #50 tab 03/09/23 04/16/23 Rx Amitriptyline HCl 10 mg PO HS 04/11/23 04/16/23 History Cetirizine HCl [Zyrtec] 10 mg PO DAILY 04/11/23 04/16/23 History Empagliflozin [Jardiance] 10 mg PO DAILY 04/11/23 04/16/23 History Ferrous Sulfate [Feosol] 325 mg PO DAILY 04/11/23 04/16/23 History Tirzepatide [Mounjaro] 7.5 mg SQ Q7D 04/11/23 04/16/23 History Cyclobenzaprine [Flexeril] 5 mg PO TID PRN #15 tablet 05/26/23 Rx Ibuprofen [Motrin] 800 mg PO Q6HR #30 tab 05/26/23 Rx Lidocaine 5% Patch [Lidoderm] 1 patch TOPICAL DAILY #5 patch 05/26/23 Rx Allergies Allergy/AdvReac Type Severity Reaction Status Date / Time No Known Allergies Allergy Verified 10/22/23 09:15 Physical Exam Vitals: Vital Signs Temp Pulse Pulse Resp BP Pulse Ox 10/22/23 08:00 34 L 18 116/75 98 10/22/23 06:00 33 L 13 123/54 99 10/22/23 05:30 36 L 14 104/93 97 10/22/23 05:00 35 L 23 97/73 95 10/22/23 04:30 36 L 13 104/91 96 10/22/23 04:00 30 L 12 91/45 95 10/22/23 03:38 32 L 15 100/42 96 10/22/23 03:19 31 L 10/22/23 03:11 98.3 F 31 L 18 90/52 95 Intake and Output 10/21/23 10/22/23 10/22/23 22:59 06:59 14:59 Other: Weight 108.862 kg Results 10/22/23 03:25 10/22/23 03:25 Cardiac Enzymes 10/22/23 10/22/23 Range/Units 03:25 03:25 AST 29 (14-36) U/L Troponin I 0.019 (0.000-0.034) ng/mL Coagulation 10/22/23 Range/Units 03:25 PT 13.2 H (10.0-12.5) sec APTT 31.6 H (22.0-30.0) sec CBC 10/22/23 Range/Units 03:25 WBC 10.1 (3.8-10.6) k/uL RBC 4.37 (3.80-5.40) m/uL Hgb 11.7 (11.4-16.0) gm/dL Hct 37.3 (34.0-46.0) % Plt Count 235 (150-450) k/uL Comprehensive Metabolic Panel 10/22/23 Range/Units 03:25 Sodium 133 L (137-145) mmol/L Potassium (3.5-5.1) mmol/L Chloride 107 (98-107) mmol/L Carbon Dioxide 10 L (22-30) mmol/L BUN 100 H (7-17) mg/dL Creatinine 3.39 H (0.52-1.04) mg/dL Glucose 158 H (74-99) mg/dL Calcium 9.4 (8.4-10.2) mg/dL AST 29 (14-36) U/L ALT 18 (4-34) U/L Alkaline Phosphatase 62 (38-126) U/L Total Protein 7.0 (6.3-8.2) g/dL Albumin 4.2 (3.5-5.0) g/dL Current Medications Generic Name Dose Route Start Last Admin Trade Name Freq PRN Reason Stop Dose Admin Sodium Chloride 1,000 mls @ 130 mls/hr 10/22/23 06:30 10/22/23 06:36 Saline 0.9% IV 130 mls/hr .Q7H42M RAFFI Administration Naloxone HCl 0.2 mg 10/22/23 06:22 Naloxone 0.4 Mg/Ml 1 Ml Vial IV Q2M PRN Opioid Reversal Intake and Output 10/21/23 10/22/23 10/22/23 22:59 06:59 14:59 Other: Weight 108.862 kg 10/22/23 03:25 10/22/23 03:25
[2023-10-22] MEDS: RIVAROXABAN 15 MG TAB PO SCH (17:04)
[2023-10-22 19:04] LABS: Glucose,Whole Blood 246 mg/dL (70-110)
[2023-10-22 20:39] LABS: Glucose,Whole Blood 152 mg/dL (70-110)
[2023-10-22] MEDS ORDERED: DEXTROSE 50% SYRINGE 50 ML IVP PRN (20:39)
[2023-10-22] MEDS: INSULIN ASPART (NovoLOG) 100 UNIT/ML VIAL SQ SCH (20:50)
[2023-10-22] MEDS: ATORVASTATIN 40 MG TAB PO SCH (20:50)
[2023-10-23 05:47] LABS: Glucose,Whole Blood 180 mg/dL (70-110)
--- NOTE | 2023-10-23 07:21 | CA ---
Transthoracic Echo Report Name: Luz Swann Age: 67 Gender: F : 1955 Exam Date: 10/22/2023 15:18 Exam Location: [facility] Ht (in): 66 Wt (lb): 240 Ordering Physician: Leigh Basilio Attending/Referring Phys: [id number], Praful Paperhanger Assistant Adry Ferrara RDCS Procedure CPT: Indications: LV function Cardiac Hx: Technical Quality: Fair Contrast 1: Total Dose (mL): Contrast 2: Total Dose (mL): MEASUREMENTS (Male / Female) Normal Values 2D ECHO LV Diastolic Diameter PLAX 5.7 cm 4.2 - 5.9 / 3.9 - 5.3 cm LV Systolic Diameter PLAX 3.0 cm IVS Diastolic Thickness 1.1 cm 0.6 - 1.0 / 0.6 - 0.9 cm LVPW Diastolic Thickness 1.2 cm 0.6 - 1.0 / 0.6 - 0.9 cm LV Relative Wall Thickness 0.4 DOPPLER TR Peak Velocity 377.3 cm/s TR Peak Gradient 56.9 mmHg Right Ventricular Systolic Press 61.9 mmHg FINDINGS Left Ventricle Mildly increased left ventricular wall thickness. Mild left ventricular dilatation. Left ventricular ejection fraction is estimated at 45-50 %. Right Ventricle Right Atrium Left Atrium Mitral Valve Aortic Valve Tricuspid Valve Pulmonic Valve Pericardium No pericardial effusion. Aorta CONCLUSIONS Limited study. Technically difficult study. Poorly visualized endocardium. The LV ejection fraction is probably 45-50 percent Previewed by: Dr. Dallas Murray MD (Electronically Signed) Final Date: 23 Oct 2023 07:20
--- NOTE | 2023-10-23 08:39 | P.HPIM ---
History of Present Illness H&P Date: 10/22/23 Chief Complaint: weakness Luz Swann is a 67 yo F with PMH coronary artery disease with previous stenting, persistent atrial fibrillation, hypertension, hyperlipidemia, diabetes, and cardiomyopathy who presented to the ED with increasing weakness. Patient states over the past 2 to 3 weeks she states her legs have began to feel shaky and giving out. She reports frequent falls at home. She denies any dizziness or lightheadedness. She denied any chest pain or pressure. She denied any shortness of breath. Patient was found to be bradycardic upon arrival to the hospital with a heart rate in the 30s. EKG reveals junctional rhythm. The patient was taking metoprolol succinate 75 mg twice a day. Patient was also found to be in acute renal failure with a creatinine of 3.39. Review of Systems All systems: negative Constitutional: Reports weakness, Denies chills, Denies fever Eyes: denies blurred vision, denies pain Ears, nose, mouth and throat: Denies headache, Denies sore throat Cardiovascular: Reports palpitations, Denies chest pain, Denies shortness of breath Respiratory: Denies cough Gastrointestinal: Denies abdominal pain, Denies diarrhea, Denies nausea, Denies vomiting Genitourinary: Denies dysuria, Denies hematuria Musculoskeletal: Denies myalgias Integumentary: Denies pruritus, Denies rash Neurological: Denies numbness, Denies weakness Psychiatric: Denies anxiety, Denies depression Endocrine: Denies fatigue, Denies weight change Past Medical History Past Medical History: Atrial Fibrillation, Coronary Artery Disease (CAD), Diabetes Mellitus, GERD/Reflux, GI Bleed, Hyperlipidemia, Hypertension, Osteoarthritis (OA) Additional Past Medical History / Comment(s): See Dr Cabrales's H&P. History of Any Multi-Drug Resistant Organisms: None Reported Past Surgical History: Appendectomy, Section, Cholecystectomy, Heart Catheterization With Stent, Hysterectomy, Joint Replacement, Orthopedic Surgery Additional Past Surgical History / Comment(s): Bilateral carpal tunnel, bilateral total knee replacements, colonoscopy, EGD. Past Anesthesia/Blood Transfusion Reactions: Previous Problems w/ Anesthesia Additional Past Anesthesia/Blood Transfusion Reaction / Comment(s): Had spinal fluid leak w/ prior spinal for knee surgery-stated was told not to have spinals. No problems with blood transfusion received 30-40 yrs ago. Date of Last Stent Placement:: 2022 Past Psychological History: No Psychological Hx Reported Smoking Status: Never smoker Past Alcohol Use History: None Reported Past Drug Use History: None Reported - Past Family History Mother Family Medical History: No Reported History Medications and Allergies Home Medications Medication Instructions Recorded Confirmed Type Omeprazole 20 mg PO HS 06/04/16 10/22/23 History Rivaroxaban [Xarelto] 20 mg PO W/SUPPER 06/04/16 10/22/23 History allopurinoL [Zyloprim] 300 mg PO DAILY 06/04/16 10/22/23 History metFORMIN HCL [Glucophage] 1,000 mg PO BID 04/29/20 10/22/23 History Cholecalciferol [Vitamin D3 (25 25 mcg PO DAILY 09/03/22 10/22/23 History Mcg = 1000 Iu)] Insulin Glargine,Hum.rec.anlog 20 - 40 unit SQ HS 09/03/22 10/22/23 History [Lantus Solostar Pen] oxyBUTYnin chloride [Ditropan] 5 mg PO DAILY 09/03/22 10/22/23 History Pregabalin [Lyrica] 150 mg PO TID 11/17/22 10/22/23 History Clopidogrel [Plavix] 75 mg PO DAILY 90 Days #90 tab 03/09/23 10/22/23 Rx Nitroglycerin Sl Tabs [Nitrostat] 0.4 mg SUBLINGUAL Q5M PRN #50 tab 03/09/23 10/22/23 Rx Amitriptyline HCl 10 mg PO HS 04/11/23 10/22/23 History Cetirizine HCl [Zyrtec] 10 mg PO DAILY 04/11/23 10/22/23 History Empagliflozin [Jardiance] 10 mg PO DAILY 04/11/23 10/22/23 History Ferrous Sulfate [Feosol] 325 mg PO DAILY 04/11/23 10/22/23 History Amiodarone [Cordarone] 200 mg PO DAILY 10/22/23 10/22/23 History Atorvastatin [Lipitor] 20 mg PO HS 10/22/23 10/22/23 History Furosemide [Lasix] 40 mg PO DAILY 10/22/23 10/22/23 History HYDROcodone/APAP 10-325MG [[place] 1 tab PO Q6HR PRN 10/22/23 10/22/23 History 10-325] Insulin Aspart [NovoLOG Flexpen] See Protocol SQ PC-TID 10/22/23 10/22/23 History Levothyroxine Sodium [Synthroid] 25 mcg PO DAILY 10/22/23 10/22/23 History Losartan [Cozaar] 50 mg PO DAILY 10/22/23 10/22/23 History Metoprolol Tartrate [Lopressor] 75 mg PO BID 10/22/23 10/22/23 History Semaglutide [Ozempic] 0.25 mg SQ WE 10/22/23 10/22/23 History Spironolactone [Aldactone] 12.5 mg PO DAILY 10/22/23 10/22/23 History Allergies Allergy/AdvReac Type Severity Reaction Status Date / Time No Known Allergies Allergy Verified 10/22/23 09:15 Physical Exam Vitals: Vital Signs Temp Pulse Pulse Resp BP BP Pulse Ox 10/23/23 08:10 98.1 F 118 H 16 119/77 97 10/23/23 03:23 42 L 16 175/74 95 10/22/23 23:51 38 L 16 148/62 91 L 10/22/23 23:21 97.8 F 40 L 18 141/60 95 10/22/23 20:54 36 L 18 98 10/22/23 18:33 35 L 18 131/83 98 10/22/23 13:52 35 L 18 129/52 100 10/22/23 13:14 99 10/22/23 11:00 34 L 18 99 10/22/23 10:28 35 L 18 123/57 98 10/22/23 09:26 36 L 18 123/54 94 L Intake and Output 10/22/23 10/23/23 10/23/23 22:59 06:59 14:59 Intake Total 110 Output Total 450 1175 Balance -450 -1175 110 Intake: Oral 110 Output: Urine 450 1175 Uretheral (Roque) 450 575 Other: Voiding Method Indwelling Catheter Weight 108.862 kg Gen: well developed, well nourished, obese, NAD HEENT: NC/AT, mmm Neck: supple, no JVD or thyromegaly CV: bradycardic, no murmur Lungs: Normal effort, clear throughout Abd: soft, nontender non distended Neuro: AAOx3, no focal deficit Skin: warm and dry Results CBC & Chem 7: 10/22/23 03:25 10/22/23 03:25 Labs: Abnormal Lab Results - Last 24 Hours (Table) 10/22/23 10/22/23 10/23/23 Range/Units 19:02 20:37 05:42 POC Glucose (mg/dL) 246 H 152 H 180 H (70-110) mg/dL Thrombosis Risk Factor Assmnt - Choose All That Apply Any of the Below Risk Factors Present?: No Other Risk Factors: Yes Each Risk Factor Represents 2 Points: Age 61-74 years, Patient confined to bed Thrombosis Risk Factor Assessment Total Risk Factor Score: 4 Thrombosis Risk Factor Assessment Level: Moderate Risk Assessment and Plan Plan: 1. Symptomatic bradycardia. Admit and Cardiology to evaluate. Hold BB. Telemetry 2. JL secondary to vasomotor nephropathy. Pt with CKD3 at baseline. Hold lasix. IV fluids at 130 cc/hr. Recheck renal function 3. T2DM. Hold metformin. Accucheck and sliding scale
[2023-10-23 10:16] LABS: Anisocytosis Slight; Basophils % (A) 0 %; Eosinophils % (A) 0 %; HCT 39.2 % (34.0-46.0); HGB 11.7 gm/dL (11.4-16.0); Hypochromasia Marked; Lymphocytes # (A) 0.6 k/uL (1.0-4.8); Lymphocytes % (A) 6 %; MCH 26.9 pg (25.0-35.0); MCHC 29.9 g/dL (31.0-37.0); MCV 89.9 fL (80.0-100.0); Mean Platelet Volume 9.1; Monocytes # (A) 0.6 k/uL (0-1.0); Monocytes % (A) 5 %; Neutrophils # (A) 9.2 k/uL (1.3-7.7); Neutrophils % (A) 88 %; Platelet Count 174 k/uL (150-450); RBC 4.36 m/uL (3.80-5.40); RDW 17.5 % (11.5-15.5); WBC 10.5 k/uL (3.8-10.6)
[2023-10-23 10:20] LABS: African American GFR (CKD) 29 (>60 ml/min/1.73 sqM); Anion Gap 12 mmol/L; Blood Urea Nitrogen 86 mg/dL (7-17); Calcium 9.5 mg/dL (8.4-10.2); Carbon Dioxide 13 mmol/L (22-30); Chloride 112 mmol/L (98-107); Glucose 204 mg/dL (74-99); Magnesium 2.1 mg/dL (1.6-2.3); Non-African American GFR(CKD) 25 (>60 ml/min/1.73 sqM); Sodium 137 mmol/L (137-145)
[2023-10-23 10:24] LABS: Potassium 6.6 mmol/L (3.5-5.1)
[2023-10-23 11:31] LABS: Glucose,Whole Blood 263 mg/dL (70-110)
[2023-10-23] MEDS: oxyBUTYnin chloride 5 MG TAB PO SCH (11:38)
[2023-10-23] MEDS: LORATADINE 10 MG TAB PO SCH (11:38)
[2023-10-23] MEDS: CHOLECALCIFEROL 25 MCG (1000 IU) TABLET PO SCH (11:38)
[2023-10-23] MEDS: METOPROLOL TARTRATE 25 MG TAB PO SCH (11:38)
[2023-10-23] MEDS: FERROUS SULFATE 325 MG TAB PO SCH (11:38)
[2023-10-23] MEDS: PREGABALIN 75 MG CAP PO SCH (11:38)
[2023-10-23] MEDS: LEVOTHYROXINE 25 MCG TAB PO SCH (11:42)
--- NOTE | 2023-10-23 12:30 | P.PN ---
Subjective HISTORY OF PRESENT ILLNESS: This is a 67-year-old female with a past medical history significant for coronary artery disease with previous stenting, persistent atrial fibrillation, hypertension, hyperlipidemia, diabetes, and cardiomyopathy. Patient follows in the office with Dr. Cabrales and recently evaluated by Dr. Kimbrough for atrial fibrillation. We have been asked to see the patient in consultation for bradycardia. Patient examined at the bedside in the emergency room. Patient presented to the hospital with a chief complaint of generalized weakness. Patient states over the past 2 to 3 weeks she states her legs have began to feel shaky and describes them as feeling like Jell-O. She reports frequent falls at home. She denies having any episodes of syncope. She denies any dizziness or lightheadedness. She states that she ambulates with 2 canes which is not new. She denied any chest pain or pressure. She denied any shortness of breath. The patient was recently evaluated in the office by Dr. Leiva and was scheduled to undergo EP study and ablation next week. Patient was found to be bradycardic upon arrival to the hospital with a heart rate in the 30s. EKG reveals junctional rhythm. The patient was taking metoprolol succinate 75 mg twice a day. Patient was also found to be in acute renal failure with a creatinine of 3.39. DIAGNOSTICS: - EKG reveals functional rhythm - Chest xray low lung volume. Borderline cardiomegaly, likely accentuated by low lung volume. - Laboratory data: WBC 10.1. Hemoglobin 11.7. Platelet count 235. Sodium 133. BUN 100. Creatinine 3.39. Troponin negative x 1. proBNP 3410. TSH 10.9. Free T40.98. - Current home cardiac medication list has not been updated at the time of exam ination - Most recent echocardiogram obtained in August 2023 at the office revealed ejection fraction 55%, moderate MR, moderate TR -Patient underwent KIMBER in March 2023 revealing normal left atrial size. No evidence of mass or thrombus seen. No evidence of thrombus or mass seen in left atrial appendage. Intact intra-atrial septum. No evidence of atrial septal defect or patent foramen ovale on color Doppler. No right to left shunting with bubble study. Normal global LV size and systolic function. Normal overall RV size. Normal global RV size and systolic function. Structurally intact trileaflet aortic valve with no significant calcification. No significant stenosis or regurgitation. Structurally normal mitral valve with no evidence of stenosis or regurgitation. Tricuspid valve is structurally normal. - Cardiac catheterization history: February [address] Forbes. Patient underwent stenting of the mid LAD. Patient was found to have diffuse disease distally. 10/23/2023 Patient examined this morning at the bedside. Patient denies chest pain or pressure. Denies SOB. Patient went into afib with RVR. Her metoprolol has been on hold due to junctional rhythm yesterday. Creatinine 2.01 today. Potassium 6.0. PHYSICAL EXAM: VITAL SIGNS: Reviewed. GENERAL: Well-developed in no acute distress. HEENT: Head is normocephalic. Pupils are equal, round. Sclerae anicteric. Mucous membranes of the mouth are moist. Neck supple. No JVD or thyromegaly LUNGS: Respirations even and unlabored. Lungs essentially clear to auscultation bilaterally. HEART: Tachycardic. Irregular rate and rhythm. S1 and S2 heard. ABDOMEN: Soft. Nondistended. Nontender. EXTREMITIES: Normal range of motion. No clubbing or cyanosis. Peripheral pulses intact. No lower extremity edema NEUROLOGIC: Awake and alert. Oriented x 3. ASSESSMENT: Recurrent falls without syncope Junctional bradycardia, HR 30s, on high dose metoprolol outpatient, resolved Acute renal failure, possibly secondary to hypoperfusion from significant bradycardia History of KIMBER and cardioversion, March 2023 Coronary artery disease with previous stenting, most recently mid LAD and February 2023 Persistent atrial fibrillation of unknown duration History of mild ischemic cardiomyopathy, 45 to 50% Hypertension Hyperlipidemia Diabetes Hypothyroidism PLAN: Continue current cardiac medications Add metoprolol tartrate 25 mg 3 times daily. Continue telemetry monitoring Amiodarone and Plavix have been discontinued Continue Xarelto and aspirin Decrease IV fluids Patient scheduled for ablation on 10/28/[address] Kimbrough Further recommendations pending patient course Nurse practitioner note has been reviewed by physician. Signing provider agrees with the documented findings, assessment, and plan of care documented by PROFESSIONAL FIGHTER as a scribe. Objective - Vital Signs Vital signs: Vital Signs Temp 98.1 F 10/23/23 08:10 Pulse 118 H 10/23/23 08:10 Resp 16 10/23/23 08:10 BP 119/77 10/23/23 08:10 Pulse Ox 97 10/23/23 08:10 FiO2 Intake & Output 10/22/23 10/23/2324 18:59 06:59 18:59 Intake Total 110 Output Total 450 1175 1000 Balance -450 -5393 -890 Weight 108.862 kg Intake: Oral 110 Output: Urine 450 1175 1000 Uretheral (Roque) 450 575 Other: Voiding Method Indwelling Catheter Indwelling Catheter - Labs CBC & Chem 7: 10/23/23 08:23 10/23/23 11:41 Labs: Abnormal Lab Results - Last 24 Hours (Table) 10/22/23 10/22/23 10/23/23 Range/Units 19:02 20:37 05:42 MCHC (31.0-37.0) g/dL RDW (11.5-15.5) % Neutrophils # (1.3-7.7) k/uL Lymphocytes # (1.0-4.8) k/uL Potassium (3.5-5.1) mmol/L Chloride (98-107) mmol/L Carbon Dioxide (22-30) mmol/L BUN (7-17) mg/dL Creatinine (0.52-1.04) mg/dL Glucose (74-99) mg/dL POC Glucose (mg/dL) 246 H 152 H 180 H (70-110) mg/dL 10/23/23 10/23/23 10/23/23 Range/Units 08:23 08:23 11:30 MCHC 29.9 L (31.0-37.0) g/dL RDW 17.5 H (11.5-15.5) % Neutrophils # 9.2 H (1.3-7.7) k/uL Lymphocytes # 0.6 L (1.0-4.8) k/uL Potassium 6.6 H* (3.5-5.1) mmol/L Chloride 112 H (98-107) mmol/L Carbon Dioxide 13 L (22-30) mmol/L BUN 86 H (7-17) mg/dL Creatinine 2.01 H (0.52-1.04) mg/dL Glucose 204 H (74-99) mg/dL POC Glucose (mg/dL) 263 H (70-110) mg/dL 10/23/23 Range/Units 11:41 MCHC (31.0-37.0) g/dL RDW (11.5-15.5) % Neutrophils # (1.3-7.7) k/uL Lymphocytes # (1.0-4.8) k/uL Potassium 6.0 H (3.5-5.1) mmol/L Chloride (98-107) mmol/L Carbon Dioxide (22-30) mmol/L BUN (7-17) mg/dL Creatinine (0.52-1.04) mg/dL Glucose (74-99) mg/dL POC Glucose (mg/dL) (70-110) mg/dL
[2023-10-23] MEDS: INSULIN REGULAR 100 UNIT/ML VIAL (IV) IV ONE (16:17)
[2023-10-23] MEDS: DEXTROSE 50% SYRINGE 50 ML IVP STA (16:17)
[2023-10-23 16:24] LABS: Glucose,Whole Blood 155 mg/dL (70-110)
[2023-10-23 20:09] LABS: Glucose,Whole Blood 274 mg/dL (70-110)
[2023-10-23] MEDS: PANTOPRAZOLE 40 MG TABLET PO SCH (20:39)
[2023-10-23] MEDS: AMITRIPTYLINE HCL 10 MG TAB PO SCH (20:40)
[2023-10-23] MEDS: INSULIN DETEMIR (LEVEMIR) 100 UNIT/ML SYR SQ SCH (20:40)
--- NOTE | 2023-10-23 22:52 | P.PN ---
Subjective Progress Note Date: 10/23/23 She is in A fib with RVR this morning, denies chest pain, shortness of breath. Her creatinine is down to 2.01, potassium 6.0. Objective - Vital Signs Vital signs: Vital Signs Temp 99.1 F 10/23/23 20:00 Pulse 122 H 10/23/23 20:00 Resp 19 10/23/23 20:00 BP 111/75 10/23/23 20:00 Pulse Ox 92 L 10/23/23 20:00 FiO2 Intake & Output 10/23/23 10/23/23 10/24/23 06:59 18:59 06:59 Intake Total 1290 Output Total 1175 4200 Balance -1175 -2910 Weight 108.862 kg Intake: Oral 1290 Output: Urine 1175 4200 Uretheral (Roque) 575 1600 Other: Voiding Method Indwelling Catheter Indwelling Catheter Bedside Commode # Voids 1 1 - Exam Gen: obese, NAD CV: Irregular, tachycardic Lungs: CTAB Neruo: AAOx3 - Labs CBC & Chem 7: 10/23/23 08:23 10/23/23 11:41 Labs: Abnormal Lab Results - Last 24 Hours (Table) 10/23/23 10/23/23 10/23/23 Range/Units 05:42 08:23 08:23 MCHC 29.9 L (31.0-37.0) g/dL RDW 17.5 H (11.5-15.5) % Neutrophils # 9.2 H (1.3-7.7) k/uL Lymphocytes # 0.6 L (1.0-4.8) k/uL Potassium 6.6 H* (3.5-5.1) mmol/L Chloride 112 H (98-107) mmol/L Carbon Dioxide 13 L (22-30) mmol/L BUN 86 H (7-17) mg/dL Creatinine 2.01 H (0.52-1.04) mg/dL Glucose 204 H (74-99) mg/dL POC Glucose (mg/dL) 180 H (70-110) mg/dL 10/23/23 10/23/23 10/23/23 Range/Units 11:30 11:41 16:22 MCHC (31.0-37.0) g/dL RDW (11.5-15.5) % Neutrophils # (1.3-7.7) k/uL Lymphocytes # (1.0-4.8) k/uL Potassium 6.0 H (3.5-5.1) mmol/L Chloride (98-107) mmol/L Carbon Dioxide (22-30) mmol/L BUN (7-17) mg/dL Creatinine (0.52-1.04) mg/dL Glucose (74-99) mg/dL POC Glucose (mg/dL) 263 H 155 H (70-110) mg/dL 10/23/23 Range/Units 20:08 MCHC (31.0-37.0) g/dL RDW (11.5-15.5) % Neutrophils # (1.3-7.7) k/uL Lymphocytes # (1.0-4.8) k/uL Potassium (3.5-5.1) mmol/L Chloride (98-107) mmol/L Carbon Dioxide (22-30) mmol/L BUN (7-17) mg/dL Creatinine (0.52-1.04) mg/dL Glucose (74-99) mg/dL POC Glucose (mg/dL) 274 H (70-110) mg/dL Assessment and Plan Plan: Administer insulin and D50 for hyperkalemia, continue to closely monitor renal function. Resume metoprolol per cardiology. Nephrology recommendations
[2023-10-24 06:05] LABS: Glucose,Whole Blood 118 mg/dL (70-110)
[2023-10-24] MEDS: HYDROcodone/APAP 10-325MG 1 EACH TAB PO PRN (06:07)
--- NOTE | 2023-10-24 08:52 | P.PN ---
Subjective This is a pleasant 67 years old female with past medical history of multiple medical problem including hypothyroidism on levothyroxine 25 mcg She presents because of multiple falls at home and feeling generally weak and constipation. On admission patient was found to have significantly bradycardic with heart rate was as low as 134 on EKG done in the emergency room it was sinus rhythm and it is improved after lowering the dose of metoprolol 150 mg daily down to 75 mg daily Also her kidney was mildly failing or injured with creatinine up to 3.3, improved yesterday 2.0 with IV hydration normal saline 100 mL/h Also cardiology following the patient for paroxysmal A-fib and currently she is on Xarelto and rate controlled on metoprolol. TSH was elevated more than 10 and T4 was low normal therefore there was indication with symptoms of hypothyroidism therefore we increased the dose of levothyroxine 25 mcg up to 50 mcg starting today, patient informed and she agrees. She has metformin, Aldactone and Lasix placed on hold since admission. We will lower her normal saline to 50 mL/h Plan of care discussed with patient in details and she verbalized understanding and acceptance Review of systems CONSTITUTIONAL: No fever, no malaise, no fatigue. HEENT: No recent visual problems or hearing problems. Denied any sore throat. CARDIOVASCULAR: No orthopnea, PND, no palpitations, no syncope. HEMATOLOGICAL: Denies any bleeding or petechiae. GENITOURINARY: Denies any burning micturition, frequency, or urgency. MUSCULOSKELETAL/RHEUMATOLOGICAL: Denies any joint pain, swelling, or any muscle pain. ENDOCRINE: Denies any polyuria or polydipsia. Active Medications Generic Name Dose Route Start Last Admin Trade Name Audiq PRN Reason Stop Dose Admin Hydrocodone Bitart/Acetaminophen 1 each 10/23/23 08:51 10/24/23 06:07 Hydrocodone/Apap 10-325mg 1 Each Tab PO 1 each Q6HR PRN Administration Pain Amitriptyline HCl 10 mg 10/23/23 21:00 10/23/23 20:40 Amitriptyline Hcl 10 Mg Tab PO 10 mg HS RAFFI Administration Aspirin 81 mg 10/22/23 09:00 10/23/23 08:14 Aspirin 81 Mg PO 81 mg DAILY RAFFI Administration Atorvastatin Calcium 40 mg 10/22/23 21:00 10/23/23 20:39 Atorvastatin 40 Mg Tab PO 40 mg HS RAFFI Administration Cholecalciferol 25 mcg 05/01/24 09:00 10/23/23 11:38 Cholecalciferol 25 Mcg (1000 Iu) Tablet PO 25 mcg DAILY RAFFI Administration Dextrose/Water 50 ml 10/22/23 20:39 Dextrose 50% Syringe 50 Ml IVP PER PROTOCOL PRN Hypoglycemia Protocol Ferrous Sulfate 325 mg 10/23/23 09:00 10/23/23 11:38 Ferrous Sulfate 325 Mg Tab PO 325 mg DAILY RAFFI Administration Sodium Chloride 1,000 mls @ 50 mls/hr 10/22/23 06:30 10/24/23 05:22 Saline 0.9% IV 100 mls/hr .Q20H RAFFI Administration Ceftriaxone Sodium 1 gm/ 50 mls @ 100 mls/hr 10/23/23 14:45 10/23/23 16:17 Sodium Chloride IVPB 100 mls/hr Q24HR RAFFI Administration Protocol Insulin Aspart 0 unit 10/22/23 21:00 10/24/23 06:04 Insulin Aspart (Novolog) 100 Unit/Ml Vial SQ Not Given ACHS RAFFI Protocol Insulin Detemir 20 unit 10/23/23 21:00 10/23/23 20:40 Insulin Detemir (Levemir) 100 Unit/Ml Syr SQ 20 unit HS RAFFI Administration Levothyroxine Sodium 50 mcg 10/25/23 06:30 Levothyroxine 50 Mcg Tab PO DAILY@0630 RAFFI Loratadine 10 mg 10/23/23 09:00 10/23/23 11:38 Loratadine 10 Mg Tab PO 10 mg DAILY RAFFI Administration Metoprolol Tartrate 25 mg 10/23/23 10:15 10/23/23 20:39 Metoprolol Tartrate 25 Mg Tab PO 25 mg TID RAFFI Administration Naloxone HCl 0.2 mg 10/22/23 06:22 Naloxone 0.4 Mg/Ml 1 Ml Vial IV Q2M PRN Opioid Reversal Oxybutynin Chloride 5 mg 10/23/23 09:00 10/23/23 11:38 Oxybutynin Chloride 5 Mg Tab PO 5 mg DAILY RAFFI Administration Pantoprazole Sodium 40 mg 10/23/23 21:00 10/23/23 20:39 Pantoprazole 40 Mg Tablet PO 40 mg HS RAFFI Administration Pregabalin 150 mg 10/23/23 09:00 10/23/23 20:39 Pregabalin 75 Mg Cap PO 150 mg TID RAFFI Administration Rivaroxaban 15 mg 10/22/23 17:30 10/23/23 16:33 Rivaroxaban 15 Mg Tab PO 15 mg W/SUPPER RAFFI Administration Protocol Objective - Vital Signs Vital signs: Vital Signs Temp 98.8 F 10/24/23 04:00 Pulse 89 10/24/23 04:00 Resp 19 10/24/23 04:00 BP 105/62 10/24/23 04:00 Pulse Ox 94 L 10/24/23 08:34 FiO2 Intake & Output 10/23/23 10/24/23 10/24/23 18:59 06:59 18:59 Intake Total 1290 118 Output Total 4200 500 Balance -2910 -500 118 Intake: Oral 1290 118 Output: Urine 4200 500 Uretheral (Roque) 1600 Other: Voiding Method Indwelling Catheter Bedside Commode # Voids 1 2 - Exam GENERAL: The patient is alert and oriented x3, not in any acute distress. Well developed, well nourished. HEENT: Pupils are round and equally reacting to light. EOMI. No scleral icterus. No conjunctival pallor. Normocephalic, atraumatic. No pharyngeal erythema. No thyromegaly. CARDIOVASCULAR: S1 and S2 present. No murmurs, rubs, or gallops. PULMONARY: Chest is clear to auscultation, no wheezing , no crackles. ABDOMEN: Soft, nontender, nondistended, normoactive bowel sounds. No palpable organomegaly. MUSCULOSKELETAL: No joint swelling or deformity. EXTREMITIES: No cyanosis, clubbing, or pedal edema. NEUROLOGICAL: Gross neurological examination did not reveal any focal deficits. SKIN: No rashes. no petechiae. - Labs CBC & Chem 7: 10/23/23 08:23 10/23/23 11:41 Labs: Abnormal Lab Results - Last 24 Hours (Table) 10/23/23 10/23/23 10/23/23 Range/Units 08:23 08:23 11:30 MCHC 29.9 L (31.0-37.0) g/dL RDW 17.5 H (11.5-15.5) % Neutrophils # 9.2 H (1.3-7.7) k/uL Lymphocytes # 0.6 L (1.0-4.8) k/uL Potassium 6.6 H* (3.5-5.1) mmol/L Chloride 112 H (98-107) mmol/L Carbon Dioxide 13 L (22-30) mmol/L BUN 86 H (7-17) mg/dL Creatinine 2.01 H (0.52-1.04) mg/dL Glucose 204 H (74-99) mg/dL POC Glucose (mg/dL) 263 H (70-110) mg/dL 10/23/23 10/23/23 10/23/23 Range/Units 11:41 16:22 20:08 MCHC (31.0-37.0) g/dL RDW (11.5-15.5) % Neutrophils # (1.3-7.7) k/uL Lymphocytes # (1.0-4.8) k/uL Potassium 6.0 H (3.5-5.1) mmol/L Chloride (98-107) mmol/L Carbon Dioxide (22-30) mmol/L BUN (7-17) mg/dL Creatinine (0.52-1.04) mg/dL Glucose (74-99) mg/dL POC Glucose (mg/dL) 155 H 274 H (70-110) mg/dL 10/24/23 Range/Units 06:03 MCHC (31.0-37.0) g/dL RDW (11.5-15.5) % Neutrophils # (1.3-7.7) k/uL Lymphocytes # (1.0-4.8) k/uL Potassium (3.5-5.1) mmol/L Chloride (98-107) mmol/L Carbon Dioxide (22-30) mmol/L BUN (7-17) mg/dL Creatinine (0.52-1.04) mg/dL Glucose (74-99) mg/dL POC Glucose (mg/dL) 118 H (70-110) mg/dL Assessment and Plan Assessment: Acute hypothyroidism Severe bradycardia present on admission improved currently with lowering dose of metoprolol Acute kidney injury with hyperkalemia present on admission, improving Constipation secondary to hypothyroidism Coronary artery disease status post stent Paroxysmal atrial fibrillation on Xarelto Mild ischemic cardiomyopathy with ejection fraction 45 to 50%, chronic Hypertension Hyperlipidemia Diabetes mellitus Continue with normal saline but lower the rate to 50 mL/h and follow-up creatin ine Plan: Patient is continued on Xarelto Increase the dose of levothyroxine 25-up to 50 mcg Colace for constipation Cardiology following the case and heart rate improved Labs and medication were reviewed.. Continue same treatment. Continue with symptomatic treatment. Resume home medication. Monitor labs and vitals. DVT and GI prophylaxis. Further recommendations as per clinical course of the patient DVT prophylaxis: Xarelto GI Prophylaxis: Ppi PT/OT: Pending Prognosis is guarded Possible discharge in 24 to 48 hours to rehab if she keeps improving
[2023-10-24] MEDS: LEVOTHYROXINE 25 MCG TAB PO ONE (09:32)
[2023-10-24] MEDS: DOCUSATE 100 MG CAP PO SCH (09:33)
[2023-10-24 09:37] LABS: African American GFR (CKD) 52 (>60 ml/min/1.73 sqM); Anion Gap 10 mmol/L; Blood Urea Nitrogen 48 mg/dL (7-17); Calcium 9.6 mg/dL (8.4-10.2); Carbon Dioxide 17 mmol/L (22-30); Chloride 113 mmol/L (98-107); Glucose 187 mg/dL (74-99); Non-African American GFR(CKD) 45 (>60 ml/min/1.73 sqM); Sodium 140 mmol/L (137-145)
--- NOTE | 2023-10-24 10:08 | P.NPCON ---
History of Present Illness - Reason for Consult acute renal failure - History of Present Illness Reason for consultation: Acute kidney injury History of present illness: Patient is a 67-year-old female seen in renal consultation for acute kidney injury. Patient's creatinine on admission was 3.39 and is down to 1.22 today. Patient's creatinine in March 2023 was 0.9 and 1.1 dated August 15, 2023. P atwagner came to the hospital after sustaining a fall. Patient states her legs felt like rubber and she just fell down. She denies losing consciousness. Patient says she has been feeling weak. She is currently receiving IV fluids. Patient's potassium level was elevated at 6.6 and is 6.0 as of this morning. Acidosis is better. Patient denies use of nonsteroidals. Patient does have history of diabetes. Also has history of coronary disease with cardiac stent. She has been voiding. Denies gross hematuria or dysuria. No vomiting or diarrhea. Patient was on spironolactone outpatient as well as losartan both are currently held. Denies fever or chills. Hemodynamically stable also blood pressure is on the lower side. Vital signs are stable. General: No acute distress. HEENT: Head exam is unremarkable. LUNGS: No audible rhonchi or wheezes. HEART: Rate and Rhythm are regular. ABDOMEN: Nontender. EXTREMITITES: No edema. Past Medical History Past Medical History: Atrial Fibrillation, Coronary Artery Disease (CAD), Diabetes Mellitus, GERD/Reflux, GI Bleed, Hyperlipidemia, Hypertension, Osteoarthritis (OA) Additional Past Medical History / Comment(s): See Dr Cabrales's H&P. History of Any Multi-Drug Resistant Organisms: None Reported Past Surgical History: Appendectomy, Section, Cholecystectomy, Heart Catheterization With Stent, Hysterectomy, Joint Replacement, Orthopedic Surgery Additional Past Surgical History / Comment(s): Bilateral carpal tunnel, bilateral total knee replacements, colonoscopy, EGD. Past Anesthesia/Blood Transfusion Reactions: Previous Problems w/ Anesthesia Additional Past Anesthesia/Blood Transfusion Reaction / Comment(s): Had spinal fluid leak w/ prior spinal for knee surgery-stated was told not to have spinals. No problems with blood transfusion received 30-40 yrs ago. Date of Last Stent Placement:: 2022 Past Psychological History: No Psychological Hx Reported Smoking Status: Never smoker Past Alcohol Use History: None Reported Past Drug Use History: None Reported - Past Family History Mother Family Medical History: No Reported History Medications and Allergies Home Medications Medication Instructions Recorded Confirmed Type Omeprazole 20 mg PO HS 06/04/16 10/22/23 History Rivaroxaban [Xarelto] 20 mg PO W/SUPPER 06/04/16 10/22/23 History allopurinoL [Zyloprim] 300 mg PO DAILY 06/04/16 10/22/23 History metFORMIN HCL [Glucophage] 1,000 mg PO BID 04/29/20 10/22/23 History Cholecalciferol [Vitamin D3 (25 25 mcg PO DAILY 09/03/22 10/22/23 History Mcg = 1000 Iu)] Insulin Glargine,Hum.rec.anlog 20 - 40 unit SQ HS 09/03/22 10/22/23 History [Lantus Solostar Pen] oxyBUTYnin chloride [Ditropan] 5 mg PO DAILY 09/03/22 10/22/23 History Pregabalin [Lyrica] 150 mg PO TID 11/17/22 10/22/23 History Nitroglycerin Sl Tabs [Nitrostat] 0.4 mg SUBLINGUAL Q5M PRN #50 tab 03/09/23 10/22/23 Rx Amitriptyline HCl 10 mg PO HS 04/11/23 10/22/23 History Cetirizine HCl [Zyrtec] 10 mg PO DAILY 04/11/23 10/22/23 History Empagliflozin [Jardiance] 10 mg PO DAILY 04/11/23 10/22/23 History Ferrous Sulfate [Feosol] 325 mg PO DAILY 04/11/23 10/22/23 History Atorvastatin [Lipitor] 20 mg PO HS 10/22/23 10/22/23 History Furosemide [Lasix] 40 mg PO DAILY 10/22/23 10/22/23 History HYDROcodone/APAP 10-325MG [[place] 1 tab PO Q6HR PRN 10/22/23 10/22/23 History 10-325] Insulin Aspart [NovoLOG Flexpen] See Protocol SQ PC-TID 10/22/23 10/22/23 History Levothyroxine Sodium [Synthroid] 25 mcg PO DAILY 10/22/23 10/22/23 History Losartan [Cozaar] 50 mg PO DAILY 10/22/23 10/22/23 History Metoprolol Tartrate [Lopressor] 75 mg PO BID 10/22/23 10/22/23 History Semaglutide [Ozempic] 0.25 mg SQ WE 10/22/23 10/22/23 History Spironolactone [Aldactone] 12.5 mg PO DAILY 10/22/23 10/22/23 History Allergies Allergy/AdvReac Type Severity Reaction Status Date / Time No Known Allergies Allergy Verified 10/22/23 09:15 Physical Exam Vitals: Vital Signs Temp Pulse Resp BP Pulse Ox 10/24/23 08:34 94 L 10/24/23 08:00 97.5 F L 71 16 104/63 96 10/24/23 04:00 98.8 F 89 19 105/62 93 L 10/24/23 02:00 88 19 10/24/23 00:00 99.0 F 84 19 99/71 92 L 10/23/23 20:00 99.1 F 122 H 19 111/75 92 L 10/23/23 16:00 125 H 16 96 10/23/23 11:35 98.3 F 127 H 16 124/79 97 Intake and Output 10/23/23 10/24/23 10/24/23 22:59 06:59 14:59 Intake Total 1070 118 Output Total 1600 500 Balance -530 -500 118 Intake: Oral 1070 118 Output: Urine 1600 500 Other: Voiding Method Bedside Commode Bedside Commode # Voids 1 2 Results - Lab Results Most recent lab results Calcium 9.6 mg/dL (8.4-10.2) 10/24/23 08:08 Magnesium 2.1 mg/dL (1.6-2.3) 10/23/23 08:23 10/23/23 08:23 10/24/23 08:08 Assessment and Plan Plan: Assessment: 1. Acute kidney injury secondary to vasomotor nephropathy from hypovolemia further worsen with the use of Aldactone, losartan as well as Lasix. Creatinine 3.39 on admission and is 1.22 today. Baseline creatinine near 1-1.1. 2. Hyperkalemia secondary to acute kidney injury, acidosis, Aldactone and losartan. 3. Metabolic acidosis secondary to acute kidney injury and use of metformin. 4. Chronic systolic CHF with ejection fraction of 45 to 50%. 5. Diabetes mellitus. 6. Coronary disease with cardiac stenting. Plan: Change IV fluids from normal saline to isotonic sodium bicarb drip to be run at 75 cc an hour. Lokelma 10 g once now. Repeat potassium level this afternoon. Check renal ultrasound. Check bladder scan to rule out urinary retention. Thank you for the consultation. I will continue to follow the patient with you during her hospital stay.
--- NOTE | 2023-10-24 10:30 | P.PN ---
Subjective HISTORY OF PRESENT ILLNESS: This is a 67-year-old female with a past medical history significant for coronary artery disease with previous stenting, persistent atrial fibrillation, hypertension, hyperlipidemia, diabetes, and cardiomyopathy. Patient follows in the office with Dr. Cabrales and recently evaluated by Dr. Kibmrough for atrial fibrillation. We have been asked to see the patient in consultation for bradycardia. Patient examined at the bedside in the emergency room. Patient presented to the hospital with a chief complaint of generalized weakness. Patient states over the past 2 to 3 weeks she states her legs have began to feel shaky and describes them as feeling like Jell-O. She reports frequent falls at home. She denies having any episodes of syncope. She denies any dizziness or lightheadedness. She states that she ambulates with 2 canes which is not new. She denied any chest pain or pressure. She denied any shortness of breath. The patient was recently evaluated in the office by Dr. Leiva and was scheduled to undergo EP study and ablation next week. Patient was found to be bradycardic upon arrival to the hospital with a heart rate in the 30s. EKG reveals junctional rhythm. The patient was taking metoprolol succinate 75 mg twice a day. Patient was also found to be in acute renal failure with a creatinine of 3.39. DIAGNOSTICS: - EKG reveals functional rhythm - Chest xray low lung volume. Borderline cardiomegaly, likely accentuated by low lung volume. - Laboratory data: WBC 10.1. Hemoglobin 11.7. Platelet count 235. Sodium 133. BUN 100. Creatinine 3.39. Troponin negative x 1. proBNP 3410. TSH 10.9. Free T40.98. - Current home cardiac medication list has not been updated at the time of exam ination - Most recent echocardiogram obtained in August 2023 at the office revealed ejection fraction 55%, moderate MR, moderate TR -Patient underwent KIMBER in March 2023 revealing normal left atrial size. No evidence of mass or thrombus seen. No evidence of thrombus or mass seen in left atrial appendage. Intact intra-atrial septum. No evidence of atrial septal defect or patent foramen ovale on color Doppler. No right to left shunting with bubble study. Normal global LV size and systolic function. Normal overall RV size. Normal global RV size and systolic function. Structurally intact trileaflet aortic valve with no significant calcification. No significant stenosis or regurgitation. Structurally normal mitral valve with no evidence of stenosis or regurgitation. Tricuspid valve is structurally normal. - Cardiac catheterization history: February [address] Forbes. Patient underwent stenting of the mid LAD. Patient was found to have diffuse disease distally. 10/23/2023 Patient examined this morning at the bedside. Patient denies chest pain or pressure. Denies SOB. Patient went into afib with RVR. Her metoprolol has been on hold due to junctional rhythm yesterday. Creatinine 2.01 today. Potassium 6.0. 10/24/2023 Patient examined this morning at the bedside. Patient denies chest pain or pressure. Denies SOB. Vital signs are stable. Patient remains in atrial fibrilla tion with heart rates in the 80s. Creatinine 1.22 today. PHYSICAL EXAM: VITAL SIGNS: Reviewed. GENERAL: Well-developed in no acute distress. HEENT: Head is normocephalic. Pupils are equal, round. Sclerae anicteric. Mucous membranes of the mouth are moist. Neck supple. No JVD or thyromegaly LUNGS: Respirations even and unlabored. Lungs essentially clear to auscultation bilaterally. HEART: Tachycardic. Irregular rate and rhythm. S1 and S2 heard. ABDOMEN: Soft. Nondistended. Nontender. EXTREMITIES: Normal range of motion. No clubbing or cyanosis. Peripheral pulses intact. No lower extremity edema NEUROLOGIC: Awake and alert. Oriented x 3. ASSESSMENT: Recurrent falls without syncope Junctional bradycardia, HR 30s, on high dose metoprolol outpatient, resolved Acute renal failure, possibly secondary to hypoperfusion from significant bradycardia History of KIMBER and cardioversion, March 2023 Coronary artery disease with previous stenting, most recently mid LAD and February 2023 Persistent atrial fibrillation of unknown duration History of mild ischemic cardiomyopathy, 45 to 50% Hypertension Hyperlipidemia Diabetes Hypothyroidism PLAN: Continue current cardiac medications Continue current dose of metoprolol. Continue telemetry monitoring Amiodarone and Plavix have been discontinued Continue Xarelto and aspirin Patient scheduled for ablation on 10/28/[address] Kimbrough Patient is currently stable from a cardiac standpoint Further recommendations pending patient course Nurse practitioner note has been reviewed by physician. Signing provider agrees with the documented findings, assessment, and plan of care documented by SHUTTLE REPAIRER as a scribe. Objective - Vital Signs Vital signs: Vital Signs Temp 98.8 F 10/24/23 04:00 Pulse 89 10/24/23 04:00 Resp 19 10/24/23 04:00 BP 105/62 10/24/23 04:00 Pulse Ox 94 L 10/24/23 08:34 FiO2 Intake & Output 10/23/23 10/24/23 10/24/23 18:59 06:59 18:59 Intake Total 1290 118 Output Total 4200 500 Balance -2910 -500 118 Intake: Oral 1290 118 Output: Urine 4200 500 Uretheral (Roque) 1600 Other: Voiding Method Indwelling Catheter Bedside Commode # Voids 1 2 - Labs CBC & Chem 7: 10/23/23 08:23 10/24/23 08:08 Labs: Abnormal Lab Results - Last 24 Hours (Table) 10/23/23 10/23/23 10/23/23 Range/Units 08:23 08:23 11:30 MCHC 29.9 L (31.0-37.0) g/dL RDW 17.5 H (11.5-15.5) % Neutrophils # 9.2 H (1.3-7.7) k/uL Lymphocytes # 0.6 L (1.0-4.8) k/uL Potassium 6.6 H* (3.5-5.1) mmol/L Chloride 112 H (98-107) mmol/L Carbon Dioxide 13 L (22-30) mmol/L BUN 86 H (7-17) mg/dL Creatinine 2.01 H (0.52-1.04) mg/dL Glucose 204 H (74-99) mg/dL POC Glucose (mg/dL) 263 H (70-110) mg/dL 10/23/23 10/23/23 10/23/23 Range/Units 11:41 16:22 20:08 MCHC (31.0-37.0) g/dL RDW (11.5-15.5) % Neutrophils # (1.3-7.7) k/uL Lymphocytes # (1.0-4.8) k/uL Potassium 6.0 H (3.5-5.1) mmol/L Chloride (98-107) mmol/L Carbon Dioxide (22-30) mmol/L BUN (7-17) mg/dL Creatinine (0.52-1.04) mg/dL Glucose (74-99) mg/dL POC Glucose (mg/dL) 155 H 274 H (70-110) mg/dL 10/24/23 Range/Units 06:03 MCHC (31.0-37.0) g/dL RDW (11.5-15.5) % Neutrophils # (1.3-7.7) k/uL Lymphocytes # (1.0-4.8) k/uL Potassium (3.5-5.1) mmol/L Chloride (98-107) mmol/L Carbon Dioxide (22-30) mmol/L BUN (7-17) mg/dL Creatinine (0.52-1.04) mg/dL Glucose (74-99) mg/dL POC Glucose (mg/dL) 118 H (70-110) mg/dL
--- NOTE | 2023-10-24 10:53 | US ---
EXAMINATION TYPE: US renals and bladder DATE OF EXAM: 10/24/2023 COMPARISON: NONE CLINICAL INDICATION: Female, 67 years old with history of jl; JL EXAM MEASUREMENTS: Right Kidney: 14.1x4.4x5.4 cm Left Kidney: 13.3x6.1x5.9 cm Right Kidney: dilated renal pelvis vs. extrarenal pelvis Left Kidney: No hydronephrosis or masses seen Bladder: wnl Bilateral Jets seen: obscured by flash artifact There is no evidence for hydronephrosis at this point in time. No nephrolithiasis is seen. No anthony s are identified. The urinary bladder is anechoic. exam limited by bowel and body habitus IMPRESSION: No evidence for obstructive uropathy. Right extrarenal pelvis. Cortical medullary differentiation brent ntained.
[2023-10-24 11:53] LABS: Glucose,Whole Blood 140 mg/dL (70-110)
[2023-10-24] MEDS: SODIUM ZIRCONIUM CYCLOSILICATE 10 GM PACKET PO ONE ×3 (12:12→20:33)
[2023-10-24] MEDS: SODIUM ZIRCONIUM CYCLOSILICATE 10 GM PACKET PO SCH (12:12)
[2023-10-24] MEDS: DEXTROSE 5% IN WATER 1,000 ML with SODIUM BICARB (1 MEQ/ML) 150 ML IV SCH (12:16)
[2023-10-24 16:25] LABS: Glucose,Whole Blood 153 mg/dL (70-110)
[2023-10-24 19:54] LABS: Glucose,Whole Blood 148 mg/dL (70-110)
[2023-10-25 06:29] LABS: Glucose,Whole Blood 107 mg/dL (70-110)
[2023-10-25] MEDS: LEVOTHYROXINE 50 MCG TAB PO SCH (06:35)
[2023-10-25 09:36] LABS: African American GFR (CKD) 61 (>60 ml/min/1.73 sqM); Anion Gap 7 mmol/L; Blood Urea Nitrogen 36 mg/dL (7-17); Calcium 9.4 mg/dL (8.4-10.2); Carbon Dioxide 24 mmol/L (22-30); Chloride 108 mmol/L (98-107); Glucose 163 mg/dL (74-99); Magnesium 1.6 mg/dL (1.6-2.3); Non-African American GFR(CKD) 53 (>60 ml/min/1.73 sqM); Potassium 4.9 mmol/L (3.5-5.1); Sodium 139 mmol/L (137-145)
--- NOTE | 2023-10-25 10:25 | P.PN ---
Subjective Patient is seen in follow-up for acute kidney injury. Renal function improved. Potassium level normal. Roque catheter reinserted for urinary retention. Vital signs are stable. General: No acute distress. HEENT: Head exam is unremarkable. LUNGS: No audible rhonchi or wheezes. HEART: Rate and Rhythm are regular. ABDOMEN: Nontender. EXTREMITITES: No edema. Objective - Vital Signs Vital signs: Vital Signs Temp 98.3 F 10/25/23 04:00 Pulse 79 10/25/23 08:00 Resp 16 10/25/23 08:00 BP 113/60 10/25/23 08:00 Pulse Ox 97 10/25/23 04:00 FiO2 Intake & Output 10/24/23 10/25/23 10/25/23 18:59 06:59 18:59 Intake Total 236 236 Output Total 2110 2250 Balance -1874 -2250 236 Intake: Oral 236 236 Output: Urine 1575 2250 2-way Urethral 1100 Post Void Residual 535 Other: Voiding Method Bedside Commode Indwelling Catheter - Labs CBC & Chem 7: 10/23/23 08:23 10/25/23 07:53 Labs: Abnormal Lab Results - Last 24 Hours (Table) 10/24/23 10/24/23 10/24/23 Range/Units 11:52 15:25 16:24 Potassium 5.5 H (3.5-5.1) mmol/L Chloride (98-107) mmol/L BUN (7-17) mg/dL Creatinine (0.52-1.04) mg/dL Glucose (74-99) mg/dL POC Glucose (mg/dL) 140 H 153 H (70-110) mg/dL 10/24/23 10/25/23 Range/Units 19:52 07:53 Potassium (3.5-5.1) mmol/L Chloride 108 H (98-107) mmol/L BUN 36 H (7-17) mg/dL Creatinine 1.08 H (0.52-1.04) mg/dL Glucose 163 H (74-99) mg/dL POC Glucose (mg/dL) 148 H (70-110) mg/dL Assessment and Plan Plan: Assessment: 1. Acute kidney injury secondary to vasomotor nephropathy from hypovolemia further worsen with the use of Aldactone, losartan as well as Lasix. Creatinine 3.39 on admission and is 1.08 today. Baseline creatinine near 1-1.1. No hydronephrosis noted on kidney ultrasound. 2. Hyperkalemia secondary to acute kidney injury, acidosis, Aldactone and losartan. Improved. 3. Metabolic acidosis secondary to acute kidney injury and use of metformin. Improved with bicarb drip. 4. Chronic systolic CHF with ejection fraction of 45 to 50%. 5. Diabetes mellitus. 6. Coronary disease with cardiac stenting. 7. Urinary retention. Roque catheter reinserted October 24, 2023. 8. Junctional bradycardia. Metoprolol adjusted by cardiology. Scheduled for ablation October 28, 2023. Plan: Hep-Lock IV fluids. Encouraged oral intake. Add Flomax.
[2023-10-25 11:46] LABS: Glucose,Whole Blood 151 mg/dL (70-110)
[2023-10-25] MEDS: TAMSULOSIN 0.4 MG CAP.ER.24H PO SCH (12:21)
--- NOTE | 2023-10-25 13:33 | P.PN ---
Subjective HISTORY OF PRESENT ILLNESS: This is a 67-year-old female with a past medical history significant for coronary artery disease with previous stenting, persistent atrial fibrillation, hypertension, hyperlipidemia, diabetes, and cardiomyopathy. Patient follows in the office with Dr. Cabrales and recently evaluated by Dr. Kimbrough for atrial fibrillation. We have been asked to see the patient in consultation for bradycardia. Patient examined at the bedside in the emergency room. Patient presented to the hospital with a chief complaint of generalized weakness. Patient states over the past 2 to 3 weeks she states her legs have began to feel shaky and describes them as feeling like Jell-O. She reports frequent falls at home. She denies having any episodes of syncope. She denies any dizziness or lightheadedness. She states that she ambulates with 2 canes which is not new. She denied any chest pain or pressure. She denied any shortness of breath. The patient was recently evaluated in the office by Dr. Leiva and was scheduled to undergo EP study and ablation next week. Patient was found to be bradycardic upon arrival to the hospital with a heart rate in the 30s. EKG reveals junctional rhythm. The patient was taking metoprolol succinate 75 mg twice a day. Patient was also found to be in acute renal failure with a creatinine of 3.39. DIAGNOSTICS: - EKG reveals functional rhythm - Chest xray low lung volume. Borderline cardiomegaly, likely accentuated by low lung volume. - Laboratory data: WBC 10.1. Hemoglobin 11.7. Platelet count 235. Sodium 133. BUN 100. Creatinine 3.39. Troponin negative x 1. proBNP 3410. TSH 10.9. Free T40.98. - Current home cardiac medication list has not been updated at the time of exam ination - Most recent echocardiogram obtained in August 2023 at the office revealed ejection fraction 55%, moderate MR, moderate TR -Patient underwent KIMBER in March 2023 revealing normal left atrial size. No evidence of mass or thrombus seen. No evidence of thrombus or mass seen in left atrial appendage. Intact intra-atrial septum. No evidence of atrial septal defect or patent foramen ovale on color Doppler. No right to left shunting with bubble study. Normal global LV size and systolic function. Normal overall RV size. Normal global RV size and systolic function. Structurally intact trileaflet aortic valve with no significant calcification. No significant stenosis or regurgitation. Structurally normal mitral valve with no evidence of stenosis or regurgitation. Tricuspid valve is structurally normal. - Cardiac catheterization history: February [address] Forbes. Patient underwent stenting of the mid LAD. Patient was found to have diffuse disease distally. 10/23/2023 Patient examined this morning at the bedside. Patient denies chest pain or pressure. Denies SOB. Patient went into afib with RVR. Her metoprolol has been on hold due to junctional rhythm yesterday. Creatinine 2.01 today. Potassium 6.0. 10/24/2023 Patient examined this morning at the bedside. Patient denies chest pain or pressure. Denies SOB. Vital signs are stable. Patient remains in atrial fibrilla tion with heart rates in the 80s. Creatinine 1.22 today. 10/25/2023 Patient examined this morning at the bedside. Patient currently denies chest pain or pressure. She denies shortness of breath. She remains in atrial fibrillation with controlled ventricular rate. Kidney function remained stable with a creatinine of 1.08. PHYSICAL EXAM: VITAL SIGNS: Reviewed. GENERAL: Well-developed in no acute distress. HEENT: Head is normocephalic. Pupils are equal, round. Sclerae anicteric. Mucous membranes of the mouth are moist. Neck supple. No JVD or thyromegaly LUNGS: Respirations even and unlabored. Lungs essentially clear to auscultation bilaterally. HEART: Irregular rate and rhythm. S1 and S2 heard. ABDOMEN: Soft. Nondistended. Nontender. EXTREMITIES: Normal range of motion. No clubbing or cyanosis. Peripheral pulses intact. No lower extremity edema NEUROLOGIC: Awake and alert. Oriented x 3. ASSESSMENT: Recurrent falls without syncope Junctional bradycardia, HR 30s, on high dose metoprolol outpatient, resolved Acute renal failure, possibly secondary to hypoperfusion from significant bradycardia History of KIMBER and cardioversion, March 2023 Coronary artery disease with previous stenting, most recently mid LAD and February 2023 Persistent atrial fibrillation of unknown duration History of mild ischemic cardiomyopathy, 45 to 50% Hypertension Hyperlipidemia Diabetes Hypothyroidism PLAN: Continue current cardiac medications Continue current dose of metoprolol. Continue telemetry monitoring Amiodarone and Plavix have been discontinued Continue Xarelto and aspirin. Increase Xarelto back to 20 mg as kidney function has improved. Patient initially scheduled for ablation on 10/28/[address] Kimbrough. This has been rescheduled for October. Patient instructed not to stop her Xarelto. Patient is stable for discharge home today from a cardiac standpoint Nurse practitioner note has been reviewed by physician. Signing provider agrees with the documented findings, assessment, and plan of care documented by PRISON CLASSIFICATION COUNSELOR as a scribe. Objective - Vital Signs Vital signs: Vital Signs Temp 98.3 F 10/25/23 04:00 Pulse 79 10/25/23 12:00 Resp 16 10/25/23 12:00 BP 97/57 10/25/23 12:00 Pulse Ox 95 10/25/23 12:00 FiO2 Intake & Output 10/24/23 10/25/23 10/25/23 18:59 06:59 18:59 Intake Total 236 354 Output Total 2110 2250 875 Balance -1874 -2250 -521 Intake: Oral 236 354 Output: Urine 1575 2250 875 2-way Urethral 1100 Post Void Residual 535 Other: Voiding Method Bedside Commode Indwelling Catheter Indwelling Catheter # Bowel Movements 1 - Labs CBC & Chem 7: 10/23/23 08:23 10/25/23 07:53 Labs: Abnormal Lab Results - Last 24 Hours (Table) 10/24/23 10/24/23 10/24/23 Range/Units 15:25 16:24 19:52 Potassium 5.5 H (3.5-5.1) mmol/L Chloride (98-107) mmol/L BUN (7-17) mg/dL Creatinine (0.52-1.04) mg/dL Glucose (74-99) mg/dL POC Glucose (mg/dL) 153 H 148 H (70-110) mg/dL 10/25/23 10/25/23 Range/Units 07:53 11:44 Potassium (3.5-5.1) mmol/L Chloride 108 H (98-107) mmol/L BUN 36 H (7-17) mg/dL Creatinine 1.08 H (0.52-1.04) mg/dL Glucose 163 H (74-99) mg/dL POC Glucose (mg/dL) 151 H (70-110) mg/dL
[2023-10-25 16:14] LABS: Glucose,Whole Blood 200 mg/dL (70-110)
[2023-10-25] MEDS: RIVAROXABAN 20 MG TAB PO SCH (16:41)
--- NOTE | 2023-10-25 17:55 | P.PN ---
Subjective This is a pleasant 67 years old female with past medical history of multiple medical problem including hypothyroidism on levothyroxine 25 mcg She presents because of multiple falls at home and feeling generally weak and constipation. On admission patient was found to have significantly bradycardic with heart rate was as low as 134 on EKG done in the emergency room it was sinus rhythm and it is improved after lowering the dose of metoprolol 150 mg daily down to 75 mg daily Also her kidney was mildly failing or injured with creatinine up to 3.3, improved yesterday 2.0 with IV hydration normal saline 100 mL/h Also cardiology following the patient for paroxysmal A-fib and currently she is on Xarelto and rate controlled on metoprolol. TSH was elevated more than 10 and T4 was low normal therefore there was indication with symptoms of hypothyroidism therefore we increased the dose of levothyroxine 25 mcg up to 50 mcg starting today, patient informed and she agrees. She has metformin, Aldactone and Lasix placed on hold since admission. We will lower her normal saline to 50 mL/h Plan of care discussed with patient in details and she verbalized understanding and acceptance 10/25/2023 Patient states she is doing fine. No specific complaint No chest pain or dyspnea and heart rate is improved with normal bradycardia after lowering the dose of metoprolol to 25 mg 3 times daily However patient developed urine retention and Roque catheter has to be placed back, Flomax started and urology is going to evaluate the patient However other than that patient had bowel movement today and constipation improved after increasing the dose of levothyroxine. Home health care is ordered Patient remains on Xarelto and aspirin Metformin is on hold as well as Lasix and Farxiga because of her kidney injury however creatinine improved 3.3 down to 1.0 today and hyperkalemia is improved with potassium 4.9 today. Objective - Vital Signs Vital signs: Vital Signs Temp 98.3 F 10/25/23 04:00 Pulse 79 10/25/23 12:00 Resp 16 10/25/23 13:48 BP 97/57 10/25/23 12:00 Pulse Ox 95 10/25/23 12:00 FiO2 Intake & Output 10/24/23 10/25/23 10/25/23 18:59 06:59 18:59 Intake Total 236 354 Output Total 2723 7616 191 Balance -8778 -0 -521 Intake: Oral 236 354 Output: Urine 1575 2250 875 2-way Urethral 1100 Post Void Residual 535 Other: Voiding Method Bedside Commode Indwelling Catheter Indwelling Catheter # Bowel Movements 1 - Exam GENERAL: The patient is alert and oriented x3, not in any acute distress. Well developed, well nourished. HEENT: Pupils are round and equally reacting to light. EOMI. No scleral icterus. No conjunctival pallor. Normocephalic, atraumatic. No pharyngeal erythema. No thyromegaly. CARDIOVASCULAR: S1 and S2 present. No murmurs, rubs, or gallops. PULMONARY: Chest is clear to auscultation, no wheezing , no crackles. ABDOMEN: Soft, nontender, nondistended, normoactive bowel sounds. No palpable organomegaly. MUSCULOSKELETAL: No joint swelling or deformity. EXTREMITIES: No cyanosis, clubbing, or pedal edema. NEUROLOGICAL: Gross neurological examination did not reveal any focal deficits. SKIN: No rashes. no petechiae. - Labs CBC & Chem 7: 10/23/23 08:23 10/25/23 07:53 Labs: Abnormal Lab Results - Last 24 Hours (Table) 10/24/23 10/24/23 10/24/23 Range/Units 15:25 16:24 19:52 Potassium 5.5 H (3.5-5.1) mmol/L Chloride (98-107) mmol/L BUN (7-17) mg/dL Creatinine (0.52-1.04) mg/dL Glucose (74-99) mg/dL POC Glucose (mg/dL) 153 H 148 H (70-110) mg/dL 10/25/23 10/25/23 Range/Units 07:53 11:44 Potassium (3.5-5.1) mmol/L Chloride 108 H (98-107) mmol/L BUN 36 H (7-17) mg/dL Creatinine 1.08 H (0.52-1.04) mg/dL Glucose 163 H (74-99) mg/dL POC Glucose (mg/dL) 151 H (70-110) mg/dL Assessment and Plan Assessment: Acute urinary retention status post Roque catheter and Flomax Acute hypothyroidism Severe bradycardia present on admission improved currently with lowering dose of metoprolol Acute kidney injury with hyperkalemia present on admission, improving Constipation secondary to hypothyroidism Coronary artery disease status post stent Paroxysmal atrial fibrillation on Xarelto Mild ischemic cardiomyopathy with ejection fraction 45 to 50%, chronic Hypertension Hyperlipidemia Diabetes mellitus Continue with normal saline but lower the rate to 50 mL/h and follow-up creatinine Plan: Urology consult Patient is continued on Xarelto Increase the dose of levothyroxine 25-up to 50 mcg Colace for constipation Cardiology following the case and heart rate improved Creatinine improved Labs and medication were reviewed.. Continue same treatment. Continue with symptomatic treatment. Resume home medication. Monitor labs and vitals. DVT and GI prophylaxis. Further recommendations as per clinical course of the patient DVT prophylaxis: Xarelto GI Prophylaxis: Ppi PT/OT: Pending Prognosis is guarded Possible discharge in 24 to 48 hours to rehab if she keeps improving
[2023-10-25 19:57] LABS: Glucose,Whole Blood 182 mg/dL (70-110)
[2023-10-26 06:22] LABS: Glucose,Whole Blood 122 mg/dL (70-110)
[2023-10-26 07:53] LABS: Potassium 4.9 mmol/L (3.5-5.1)
[2023-10-26 07:54] LABS: African American GFR (CKD) 74 (>60 ml/min/1.73 sqM); Anion Gap 8 mmol/L; Blood Urea Nitrogen 37 mg/dL (7-17); Calcium 9.7 mg/dL (8.4-10.2); Carbon Dioxide 25 mmol/L (22-30); Chloride 108 mmol/L (98-107); Glucose 104 mg/dL (74-99); Magnesium 1.7 mg/dL (1.6-2.3); Non-African American GFR(CKD) 64 (>60 ml/min/1.73 sqM); Sodium 141 mmol/L (137-145)
[2023-10-26] MEDS: MAGNESIUM SULFATE-D5W PMX 1 GM in DEXTROSE/WATER 1 100ML.BAG IVPB SCH (10:00)
--- NOTE | 2023-10-26 10:08 | P.PN ---
Subjective Patient is seen in follow-up for acute kidney injury. Renal function improved. Potassium level normal. Roque catheter was reinserted for urinary retention. No active complaints. Vital signs are stable. General: No acute distress. HEENT: Head exam is unremarkable. LUNGS: No audible rhonchi or wheezes. HEART: Rate and Rhythm are regular. ABDOMEN: Nontender. EXTREMITITES: No edema. Objective - Vital Signs Vital signs: Vital Signs Temp 97.8 F 10/26/23 07:51 Pulse 80 10/26/23 07:51 Resp 16 10/26/23 07:51 BP 110/68 10/26/23 07:51 Pulse Ox 95 10/26/23 07:51 FiO2 Intake & Output 10/25/23 10/26/23 10/26/23 18:59 06:59 18:59 Intake Total 354 250 Output Total 1525 750 500 Balance -1171 -750 -250 Intake: IV 10 Invasive Line 1 10 Oral 354 240 Output: Urine 1525 750 500 Other: Voiding Method Indwelling Catheter Indwelling Catheter Indwelling Catheter # Bowel Movements 1 - Labs CBC & Chem 7: 10/23/23 08:23 10/26/23 06:41 Labs: Abnormal Lab Results - Last 24 Hours (Table) 10/25/23 10/25/23 10/25/23 Range/Units 11:44 16:13 19:55 Chloride (98-107) mmol/L BUN (7-17) mg/dL Glucose (74-99) mg/dL POC Glucose (mg/dL) 151 H 200 H 182 H (70-110) mg/dL 10/26/23 10/26/23 Range/Units 06:20 06:41 Chloride 108 H (98-107) mmol/L BUN 37 H (7-17) mg/dL Glucose 104 H (74-99) mg/dL POC Glucose (mg/dL) 122 H (70-110) mg/dL Assessment and Plan Plan: Assessment: 1. Acute kidney injury secondary to vasomotor nephropathy from hypovolemia further worsen with the use of Aldactone, losartan as well as Lasix. Creatinine 3.39 on admission and is 0.92 today. No hydronephrosis noted on kidney ultrasound. 2. Hyperkalemia secondary to acute kidney injury, acidosis, Aldactone and losartan. Improved. 3. Metabolic acidosis secondary to acute kidney injury and use of metformin. Status post bicarb drip. Improved. 4. Chronic systolic CHF with ejection fraction of 45 to 50%. 5. Diabetes mellitus. 6. Coronary disease with cardiac stenting. 7. Urinary retention. Roque catheter reinserted October 24, 2023. On Flomax. 8. Junctional bradycardia. Metoprolol adjusted by cardiology. Scheduled for ablation October 28, 2023. Plan: Encouraged oral intake. Avoid nephrotoxins.
--- NOTE | 2023-10-26 11:11 | P.PN ---
Subjective HISTORY OF PRESENT ILLNESS: This is a 67-year-old female with a past medical history significant for coronary artery disease with previous stenting, persistent atrial fibrillation, hypertension, hyperlipidemia, diabetes, and cardiomyopathy. Patient follows in the office with Dr. Cabrales and recently evaluated by Dr. Kimbrough for atrial fibrillation. We have been asked to see the patient in consultation for bradycardia. Patient examined at the bedside in the emergency room. Patient presented to the hospital with a chief complaint of generalized weakness. Patient states over the past 2 to 3 weeks she states her legs have began to feel shaky and describes them as feeling like Jell-O. She reports frequent falls at home. She denies having any episodes of syncope. She denies any dizziness or lightheadedness. She states that she ambulates with 2 canes which is not new. She denied any chest pain or pressure. She denied any shortness of breath. The patient was recently evaluated in the office by Dr. Leiva and was scheduled to undergo EP study and ablation next week. Patient was found to be bradycardic upon arrival to the hospital with a heart rate in the 30s. EKG reveals junctional rhythm. The patient was taking metoprolol succinate 75 mg twice a day. Patient was also found to be in acute renal failure with a creatinine of 3.39. DIAGNOSTICS: - EKG reveals functional rhythm - Chest xray low lung volume. Borderline cardiomegaly, likely accentuated by low lung volume. - Laboratory data: WBC 10.1. Hemoglobin 11.7. Platelet count 235. Sodium 133. BUN 100. Creatinine 3.39. Troponin negative x 1. proBNP 3410. TSH 10.9. Free T40.98. - Current home cardiac medication list has not been updated at the time of exam ination - Most recent echocardiogram obtained in August 2023 at the office revealed ejection fraction 55%, moderate MR, moderate TR -Patient underwent KIMBER in March 2023 revealing normal left atrial size. No evidence of mass or thrombus seen. No evidence of thrombus or mass seen in left atrial appendage. Intact intra-atrial septum. No evidence of atrial septal defect or patent foramen ovale on color Doppler. No right to left shunting with bubble study. Normal global LV size and systolic function. Normal overall RV size. Normal global RV size and systolic function. Structurally intact trileaflet aortic valve with no significant calcification. No significant stenosis or regurgitation. Structurally normal mitral valve with no evidence of stenosis or regurgitation. Tricuspid valve is structurally normal. - Cardiac catheterization history: February [address] Forbes. Patient underwent stenting of the mid LAD. Patient was found to have diffuse disease distally. 10/23/2023 Patient examined this morning at the bedside. Patient denies chest pain or pressure. Denies SOB. Patient went into afib with RVR. Her metoprolol has been on hold due to junctional rhythm yesterday. Creatinine 2.01 today. Potassium 6.0. 10/24/2023 Patient examined this morning at the bedside. Patient denies chest pain or pressure. Denies SOB. Vital signs are stable. Patient remains in atrial fibrilla tion with heart rates in the 80s. Creatinine 1.22 today. 10/25/2023 Patient examined this morning at the bedside. Patient currently denies chest pain or pressure. She denies shortness of breath. She remains in atrial fibrillation with controlled ventricular rate. Kidney function remained stable with a creatinine of 1.08. 10/26/2023 Patient examined this morning. Patient is sitting up in the chair. Patient currently denies chest pain or pressure. She denies shortness of breath. Telemetry reveals atrial fibrillation with a heart rate in the 80s. Blood pressure is stable. Patient is hoping to be discharged home today. PHYSICAL EXAM: VITAL SIGNS: Reviewed. GENERAL: Well-developed in no acute distress. HEENT: Head is normocephalic. Pupils are equal, round. Sclerae anicteric. Mucous membranes of the mouth are moist. Neck supple. No JVD or thyromegaly LUNGS: Respirations even and unlabored. Lungs essentially clear to auscultation bilaterally. HEART: Irregular rate and rhythm. S1 and S2 heard. ABDOMEN: Soft. Nondistended. Nontender. EXTREMITIES: Normal range of motion. No clubbing or cyanosis. Peripheral pulses intact. No lower extremity edema NEUROLOGIC: Awake and alert. Oriented x 3. ASSESSMENT: Recurrent falls without syncope Junctional bradycardia, HR 30s, on high dose metoprolol outpatient, resolved Acute renal failure, possibly secondary to hypoperfusion from significant bradycardia History of KIMBER and cardioversion, March 2023 Coronary artery disease with previous stenting, most recently mid LAD and February 2023 Persistent atrial fibrillation of unknown duration History of mild ischemic cardiomyopathy, 45 to 50% Hypertension Hyperlipidemia Diabetes Hypothyroidism Urinary retention requiring indwelling urinary catheter PLAN: Continue current cardiac medications Continue current dose of metoprolol. Continue telemetry monitoring Amiodarone and Plavix have been discontinued. Do not resume upon discharge. Continue Xarelto and aspirin. Xarelto has been increased back to 20 mg as kidney function has improved. Patient initially scheduled for ablation on 10/28/[address] Kimbrough. This has been rescheduled for October. Patient instructed not to stop her Xarelto. Patient is stable for discharge home today from a cardiac standpoint Nurse practitioner note has been reviewed by physician. Signing provider agrees with the documented findings, assessment, and plan of care documented by PHOTOTYPESETTING EQUIPMENT MONITOR as a scribe. Objective - Vital Signs Vital signs: Vital Signs Temp 97.8 F 10/26/23 07:51 Pulse 80 10/26/23 07:51 Resp 16 10/26/23 07:51 BP 110/68 10/26/23 07:51 Pulse Ox 95 10/26/23 07:51 FiO2 Intake & Output 10/25/23 10/26/23 10/26/23 18:59 06:59 18:59 Intake Total 354 250 Output Total 1525 750 500 Balance -1171 -750 -250 Intake: IV 10 Invasive Line 1 10 Oral 354 240 Output: Urine 1525 750 500 Other: Voiding Method Indwelling Catheter Indwelling Catheter Indwelling Catheter # Bowel Movements 1 - Labs CBC & Chem 7: 10/23/23 08:23 10/26/23 06:41 Labs: Abnormal Lab Results - Last 24 Hours (Table) 10/25/23 10/25/23 10/25/23 Range/Units 11:44 16:13 19:55 Chloride (98-107) mmol/L BUN (7-17) mg/dL Glucose (74-99) mg/dL POC Glucose (mg/dL) 151 H 200 H 182 H (70-110) mg/dL 10/26/23 10/26/23 Range/Units 06:20 06:41 Chloride 108 H (98-107) mmol/L BUN 37 H (7-17) mg/dL Glucose 104 H (74-99) mg/dL POC Glucose (mg/dL) 122 H (70-110) mg/dL
--- NOTE | 2023-10-26 11:31 | P.GSCN ---
History of Present Illness Consult date: 10/26/23 Reason for Consult: Urinary retention History of present illness: Is a 67-year-old female admitted to the hospital with symptomatic bradycardia. Urology is consulted for urinary retention. Patient had a Rm catheter placed for urinary retention of 535 mL. At baseline she does indicate she has some difficulty voiding, and she has to double void and with some straining to completely empty her bladder. Denies any previous history of kidney stones or recurrent UTIs. Does have previous history of urinary retention requiring a Rm catheter. Review of Systems - Constitutional Denies fever, Denies weight loss - EENT Ears, nose, mouth and throat: Denies dysphagia - Cardiovascular Denies chest pain, Denies shortness of breath - Respiratory Denies cough, Denies 7 - Gastrointestinal Reports as per HPI - Genitourinary Genitourinary: Reports difficulty voiding, Denies dysuria, Denies flank pain, Denies hematuria - Integumentary Denies rash, Denies unusual bruising Past Medical History Past Medical History: Atrial Fibrillation, Coronary Artery Disease (CAD), Diabetes Mellitus, GERD/Reflux, GI Bleed, Hyperlipidemia, Hypertension, Osteoarthritis (OA) Additional Past Medical History / Comment(s): See Dr Cabrales's H&P. History of Any Multi-Drug Resistant Organisms: None Reported Past Surgical History: Appendectomy, Section, Cholecystectomy, Hysterectomy, Joint Replacement, Orthopedic Surgery Additional Past Surgical History / Comment(s): Bilateral carpal tunnel, bilateral total knee replacements, colonoscopy, EGD. Past Anesthesia/Blood Transfusion Reactions: Previous Problems w/ Anesthesia Additional Past Anesthesia/Blood Transfusion Reaction / Comm: Had spinal fluid leak w/ prior spinal for knee surgery-stated was told not to have spinals. No problems with blood transfusion received 30-40 yrs ago. Date of Last Stent Placement:: 02/2023 Past Psychological History: No Psychological Hx Reported Smoking Status: Never smoker Past Alcohol Use History: None Reported Past Drug Use History: None Reported - Past Family History Mother Family Medical History: No Reported History Medications and Allergies Home Medications Medication Instructions Recorded Confirmed Type Omeprazole 20 mg PO HS 06/04/16 10/22/23 History Rivaroxaban [Xarelto] 20 mg PO W/SUPPER 06/04/16 10/22/23 History allopurinoL [Zyloprim] 300 mg PO DAILY 06/04/16 10/22/23 History metFORMIN HCL [Glucophage] 1,000 mg PO BID 04/29/20 10/22/23 History Cholecalciferol [Vitamin D3 (25 25 mcg PO DAILY 09/03/22 10/22/23 History Mcg = 1000 Iu)] Insulin Glargine,Hum.rec.anlog 20 - 40 unit SQ HS 09/03/22 10/22/23 History [Lantus Solostar Pen] oxyBUTYnin chloride [Ditropan] 5 mg PO DAILY 09/03/22 10/22/23 History Pregabalin [Lyrica] 150 mg PO TID 11/17/22 10/22/23 History Nitroglycerin Sl Tabs [Nitrostat] 0.4 mg SUBLINGUAL Q5M PRN #50 tab 03/09/23 10/22/23 Rx Amitriptyline HCl 10 mg PO HS 04/11/23 10/22/23 History Cetirizine HCl [Zyrtec] 10 mg PO DAILY 04/11/23 10/22/23 History Empagliflozin [Jardiance] 10 mg PO DAILY 04/11/23 10/22/23 History Ferrous Sulfate [Feosol] 325 mg PO DAILY 04/11/23 10/22/23 History Atorvastatin [Lipitor] 20 mg PO HS 10/22/23 10/22/23 History Furosemide [Lasix] 40 mg PO DAILY 10/22/23 10/22/23 History HYDROcodone/APAP 10-325MG [[place] 1 tab PO Q6HR PRN 10/22/23 10/22/23 History 10-325] Insulin Aspart [NovoLOG Flexpen] See Protocol SQ PC-TID 10/22/23 10/22/23 History Levothyroxine Sodium [Synthroid] 25 mcg PO DAILY 10/22/23 10/22/23 History Losartan [Cozaar] 50 mg PO DAILY 10/22/23 10/22/23 History Semaglutide [Ozempic] 0.25 mg SQ WE 10/22/23 10/22/23 History Spironolactone [Aldactone] 12.5 mg PO DAILY 10/22/23 10/22/23 History Metoprolol Tartrate [Lopressor] 25 mg PO TID #90 tab 10/25/23 Rx Allergies Allergy/AdvReac Type Severity Reaction Status Date / Time No Known Allergies Allergy Verified 10/22/23 09:15 Surgical - Exam Vital Signs Temp Pulse Resp BP Pulse Ox 98.3 F 31 L 18 90/52 95 10/22/23 03:11 10/22/23 03:11 10/22/23 03:11 10/22/23 03:11 10/22/23 03:11 - General no distress, no pain - Eyes normal ocular movement, no pale - ENT normal nares, normal mucosa - Respiratory normal expansion, normal respiratory effort - Abdomen Abdomen: soft, non tender - Psychiatric oriented to time, oriented to person, oriented to place Results - Labs 10/23/23 08:23 10/26/23 06:41 Abnormal Lab Results - Last 24 Hours (Table) 10/25/23 10/25/23 10/25/23 Range/Units 11:44 16:13 19:55 Chloride (98-107) mmol/L BUN (7-17) mg/dL Glucose (74-99) mg/dL POC Glucose (mg/dL) 151 H 200 H 182 H (70-110) mg/dL 10/26/23 10/26/23 Range/Units 06:20 06:41 Chloride 108 H (98-107) mmol/L BUN 37 H (7-17) mg/dL Glucose 104 H (74-99) mg/dL POC Glucose (mg/dL) 122 H (70-110) mg/dL Diabetes panel 10/26/23 Range/Units 06:41 Sodium 141 (137-145) mmol/L Potassium 4.9 (3.5-5.1) mmol/L Chloride 108 H (98-107) mmol/L Carbon Dioxide 25 (22-30) mmol/L BUN 37 H (7-17) mg/dL Creatinine 0.92 (0.52-1.04) mg/dL Glucose 104 H (74-99) mg/dL Calcium 9.7 (8.4-10.2) mg/dL Calcium panel 10/26/23 Range/Units 06:41 Calcium 9.7 (8.4-10.2) mg/dL Pituitary panel 10/26/23 Range/Units 06:41 Sodium 141 (137-145) mmol/L Potassium 4.9 (3.5-5.1) mmol/L Chloride 108 H (98-107) mmol/L Carbon Dioxide 25 (22-30) mmol/L BUN 37 H (7-17) mg/dL Creatinine 0.92 (0.52-1.04) mg/dL Glucose 104 H (74-99) mg/dL Calcium 9.7 (8.4-10.2) mg/dL Adrenal panel 10/26/23 Range/Units 06:41 Sodium 141 (137-145) mmol/L Potassium 4.9 (3.5-5.1) mmol/L Chloride 108 H (98-107) mmol/L Carbon Dioxide 25 (22-30) mmol/L BUN 37 H (7-17) mg/dL Creatinine 0.92 (0.52-1.04) mg/dL Glucose 104 H (74-99) mg/dL Calcium 9.7 (8.4-10.2) mg/dL Assessment and Plan Assessment: 67-year-old female with urinary retention, does have chronic incomplete bladder emptying, she appears to be able to incompletely empty her bladder with double voiding -Rm can be removed from urology standpoint today, if PVR is less than 400 mL after rm removal she is okay to be discharged without Rm catheter
[2023-10-26 11:37] LABS: Glucose,Whole Blood 116 mg/dL (70-110)
[2023-10-26 11:49] VITALS: BP 107/73; PULSE 81; RESP 18; TEMP 97.4
--- NOTE | 2023-10-26 13:22 | P.PN ---
Subjective Progress Note Date: 10/26/23 67 years old female with past medical history of multiple medical problem including hypothyroidism on levothyroxine 25 mcg She presents because of multiple falls at home and feeling generally weak and constipation. On admission patient was found to have significantly bradycardic with heart rate was as low as 134 on EKG done in the emergency room it was sinus rhythm and it is improved after lowering the dose of metoprolol 150 mg daily down to 75 mg daily Also her kidney was mildly failing or injured with creatinine up to 3.3, improved yesterday 2.0 with IV hydration normal saline 100 mL/h Also cardiology following the patient for paroxysmal A-fib and currently she is on Xarelto and rate controlled on metoprolol. TSH was elevated more than 10 and T4 was low normal therefore there was indication with symptoms of hypothyroidism therefore we increased the dose of levothyroxine 25 mcg up to 50 mcg starting today, patient informed and she agrees. She has metformin, Aldactone and Lasix placed on hold since admission. We will lower her normal saline to 50 mL/h Plan of care discussed with patient in details and she verbalized understanding and acceptance 4Patient states she is doing fine. No specific complaintNo chest pain or dyspnea and heart rate is improved with normal bradycardia after lowering the dose of metoprolol to 25 mg 3 times daily However patient developed urine retention and Roque catheter has to be placed back, Flomax started and urology is going to evaluate the patient However other than that patient had bowel movement today and constipation improved after incr easing the dose of levothyroxine.Home health care is ordered Patient remains on Xarelto and aspirin Metformin is on hold as well as Lasix and Farxiga because of her kidney injury however creatinine improved 3.3 down to 1.0 today and hyperkalemia is improved with potassium 4.9 today. 10/26/23: Patient seen and evaluated bedside, patient is having trial of voiding, will monitor if postvoid or less than 400 patient can be discharged home. Patient has received IV antibiotics while inpatient will need outpatient follow- up with PCP GENERAL: The patient is alert and oriented x3, not in any acute distress. Well developed, well nourished. HEENT: Pupils are round and equally reacting to light. EOMI. No scleral icterus. No conjunctival pallor. Normocephalic, atraumatic. No pharyngeal erythema. No thyromegaly. CARDIOVASCULAR: S1 and S2 present. No murmurs, rubs, or gallops. PULMONARY: Chest is clear to auscultation, no wheezing , no crackles. ABDOMEN: Soft, nontender, nondistended, normoactive bowel sounds. No palpable organomegaly. MUSCULOSKELETAL: No joint swelling or deformity. EXTREMITIES: No cyanosis, clubbing, or pedal edema. NEUROLOGICAL: Gross neurological examination did not reveal any focal deficits. SKIN: No rashes. no petechiae. Assessment: * Acute urinary retention status post Roque catheter and Flomax * Urinary tract infection * Hypothyroid * Bradycardia with junctional rhythm * Acute kidney injury with hyperkalemia present on admission, improving * Constipation secondary to hypothyroidism * Coronary artery disease status post stent * Paroxysmal atrial fibrillation on Xarelto * Mild ischemic cardiomyopathy with ejection fraction 45 to 50%, chronic * Hypertension * Hyperlipidemia * Diabetes mellitus type II Plan: * In regards to urinary retention, patient seen by urology, continue oxybutynin, * In regards to bradycardia dose of metoprolol adjusted, continue anticoagulation with Xarelto will follow-up with cardiology outpatient * In regards to hypothyroid dose of Synthyroid increased * Will need physical therapy Occupational Therapy evaluation * Was treated with IV antibiotics day 4 of Rocephin Objective - Vital Signs Vital signs: Vital Signs Temp 97.8 F 10/26/23 07:51 Pulse 80 10/26/23 07:51 Resp 16 10/26/23 07:51 BP 110/68 10/26/23 07:51 Pulse Ox 95 10/26/23 07:51 FiO2 Intake & Output 10/25/23 10/26/23 10/26/23 18:59 06:59 18:59 Intake Total 354 250 Output Total 1525 750 500 Balance -1171 -750 -250 Intake: IV 10 Invasive Line 1 10 Oral 354 240 Output: Urine 1525 750 500 Other: Voiding Method Indwelling Catheter Indwelling Catheter # Bowel Movements 1 - Labs CBC & Chem 7: 10/23/23 08:23 10/26/23 06:41 Labs: Abnormal Lab Results - Last 24 Hours (Table) 10/25/23 10/25/23 10/25/23 Range/Units 11:44 16:13 19:55 Chloride (98-107) mmol/L BUN (7-17) mg/dL Glucose (74-99) mg/dL POC Glucose (mg/dL) 151 H 200 H 182 H (70-110) mg/dL 10/26/23 10/26/23 Range/Units 06:20 06:41 Chloride 108 H (98-107) mmol/L BUN 37 H (7-17) mg/dL Glucose 104 H (74-99) mg/dL POC Glucose (mg/dL) 122 H (70-110) mg/dL
--- NOTE | 2023-10-26 13:29 | P.DS ---
Providers Date of admission: 10/24/23 06:59 Expected date of discharge: 10/26/23 Attending physician: Forest Moore MD Consults: 10/22/23 06:22 Consult Physician Urgent Consulting Provider: Elena Lipscomb Consult Reason/Comments: JL/hyperkalemia Do you want consulting provider notified?: Yes 10/25/23 10:24 Consult Physician Routine Consulting Provider: Noah Tabares Consult Reason/Comments: urinary retention Do you want consulting provider notified?: Yes Primary care physician: Zoie Flowers Hospital Course: 67 years old female with past medical history of multiple medical problem including hypothyroidism on levothyroxine 25 mcg She presents because of multiple falls at home and feeling generally weak and constipation. On admission patient was found to have significantly bradycardic with heart rate was as low as 134 on EKG done in the emergency room it was sinus rhythm and it is improved after lowering the dose of metoprolol 150 mg daily down to 75 mg daily Also her kidney was mildly failing or injured with creatinine up to 3.3, improved yesterday 2.0 with IV hydration normal saline 100 mL/h Also cardiology following the patient for paroxysmal A-fib and currently she is on Xarelto and rate controlled on metoprolol. TSH was elevated more than 10 and T4 was low normal therefore there was indication with symptoms of hypothyroidism therefore we increased the dose of levothyroxine 25 mcg up to 50 mcg starting today, patient informed and she agrees. She has metformin, Aldactone and Lasix placed on hold since admission. We will lower her normal saline to 50 mL/h Plan of care discussed with patient in details and she verbalized understanding and acceptance 4Patient states she is doing fine. No specific complaintNo chest pain or dyspnea and heart rate is improved with normal bradycardia after lowering the dose of metoprolol to 25 mg 3 times daily However patient developed urine retention and Roque catheter has to be placed back, Flomax started and urology is going to evaluate the patient However other than that patient had bowel movement today and constipation improved after increasing the dose of levothyroxine.Home health care is ordered Patient remains on Xarelto and aspirin Metformin is on hold as well as Lasix and Farxiga because of her kidney injury however creatinine improved 3.3 down to 1.0 today and hyperkalemia is improved with potassium 4.9 today. 10/26/23: Patient seen and evaluated bedside, patient is having trial of voiding, will monitor if postvoid or less than 400 patient can be discharged home. Patient has received IV antibiotics while inpatient will need outpatient follow- up with PCP, cardiology and urology GENERAL: The patient is alert and oriented x3, not in any acute distress. Well developed, well nourished. HEENT: Pupils are round and equally reacting to light. EOMI. CARDIOVASCULAR: S1 and S2 present. No murmurs, rubs, or gallops. PULMONARY: Chest is clear to auscultation, no wheezing , no crackles. ABDOMEN: Soft, nontender, nondistended, normoactive bowel sounds. No palpable organomegaly. MUSCULOSKELETAL: No joint swelling or deformity. EXTREMITIES: No cyanosis, clubbing, or pedal edema. NEUROLOGICAL: Gross neurological examination did not reveal any focal deficits. SKIN: No rashes. no petechiae. Assessment: * Acute urinary retention status post Roque catheter and Flomax * Urinary tract infection * Hypothyroid * Bradycardia with junctional rhythm * Acute kidney injury with hyperkalemia present on admission, improving * Constipation secondary to hypothyroidism * Coronary artery disease status post stent * Paroxysmal atrial fibrillation on Xarelto * Mild ischemic cardiomyopathy with ejection fraction 45 to 50%, chronic * Hypertension * Hyperlipidemia * Diabetes mellitus type II Plan: * In regards to urinary retention, patient seen by urology, continue oxybutynin, Flomax, trial of voiding prior to discharge Roque catheter removed * In regards to bradycardia dose of metoprolol adjusted, continue anticoagulation with Xarelto will follow-up with cardiology outpatient, continue aspirin. Amiodarone discontinued * In regards to hypothyroid dose of Synthyroid increased * Regards to cardiomyopathy, losartan and Aldactone discontinued secondary to worsening renal function, can be resumed outpatient. Patient is back on metoprolol lower dose, Lasix resumed * Patient to be discharged home with home services * Treated while inpatient with IV Rocephin * Rest of home medications remain the same, med rec completed Patient Condition at Discharge: Stable Plan - Discharge Summary New Discharge Prescriptions: New Metoprolol Tartrate [Lopressor] 25 mg PO TID #90 tab Aspirin 81 mg PO DAILY 30 Days #30 tab Tamsulosin [Flomax] 0.4 mg PO PC-BRKFST 30 Days #30 cap Continue Omeprazole 20 mg PO HS Rivaroxaban [Xarelto] 20 mg PO W/SUPPER allopurinoL [Zyloprim] 300 mg PO DAILY metFORMIN HCL [Glucophage] 1,000 mg PO BID oxyBUTYnin chloride [Ditropan] 5 mg PO DAILY Cholecalciferol [Vitamin D3 (25 Mcg = 1000 Iu)] 25 mcg PO DAILY Insulin Glargine,Hum.rec.anlog [Lantus Solostar Pen] 20 - 40 unit SQ HS Pregabalin [Lyrica] 150 mg PO TID Nitroglycerin Sl Tabs [Nitrostat] 0.4 mg SUBLINGUAL Q5M PRN #50 tab PRN Reason: Chest Pain Cetirizine HCl [Zyrtec] 10 mg PO DAILY Amitriptyline HCl 10 mg PO HS Levothyroxine Sodium [Synthroid] 25 mcg PO DAILY Insulin Aspart [NovoLOG Flexpen] See Protocol SQ PC-TID HYDROcodone/APAP 10-325MG [[place] 10-325] 1 tab PO Q6HR PRN PRN Reason: Pain Atorvastatin [Lipitor] 20 mg PO HS Ferrous Sulfate [Iron (65 MG Elemental)] 325 mg PO DAILY Empagliflozin [Jardiance] 10 mg PO DAILY Semaglutide [Ozempic] 0.25 mg SQ WE Furosemide [Lasix] 40 mg PO DAILY Discontinued Amiodarone [Cordarone] 200 mg PO DAILY Clopidogrel [Plavix] 75 mg PO DAILY 90 Days #90 tab Spironolactone [Aldactone] 12.5 mg PO DAILY Metoprolol Tartrate [Lopressor] 75 mg PO BID Losartan [Cozaar] 50 mg PO DAILY Discharge Medication List Omeprazole 20 mg PO HS 06/04/16 [History] Rivaroxaban [Xarelto] 20 mg PO W/SUPPER 06/04/16 [History] allopurinoL [Zyloprim] 300 mg PO DAILY 06/04/16 [History] metFORMIN HCL [Glucophage] 1,000 mg PO BID 04/29/20 [History] Cholecalciferol [Vitamin D3 (25 Mcg = 1000 Iu)] 25 mcg PO DAILY 09/03/22 [History] Insulin Glargine,Hum.rec.anlog [Lantus Solostar Pen] 20 - 40 unit SQ HS 09/03/22 [History] oxyBUTYnin chloride [Ditropan] 5 mg PO DAILY 09/03/22 [History] Pregabalin [Lyrica] 150 mg PO TID 11/17/22 [History] Nitroglycerin Sl Tabs [Nitrostat] 0.4 mg SUBLINGUAL Q5M PRN #50 tab 03/09/23 [Rx] Amitriptyline HCl 10 mg PO HS 04/11/23 [History] Cetirizine HCl [Zyrtec] 10 mg PO DAILY 04/11/23 [History] Empagliflozin [Jardiance] 10 mg PO DAILY 04/11/23 [History] Ferrous Sulfate [Iron (65 MG Elemental)] 325 mg PO DAILY 04/11/23 [History] Atorvastatin [Lipitor] 20 mg PO HS 10/22/23 [History] Furosemide [Lasix] 40 mg PO DAILY 10/22/23 [History] HYDROcodone/APAP 10-325MG [[place] 10-325] 1 tab PO Q6HR PRN 10/22/23 [History] Insulin Aspart [NovoLOG Flexpen] See Protocol SQ PC-TID 10/22/23 [History] Levothyroxine Sodium [Synthroid] 25 mcg PO DAILY 10/22/23 [History] Semaglutide [Ozempic] 0.25 mg SQ WE 10/22/23 [History] Metoprolol Tartrate [Lopressor] 25 mg PO TID #90 tab 10/25/23 [Rx] Aspirin 81 mg PO DAILY 30 Days #30 tab 10/26/23 [Rx] Tamsulosin [Flomax] 0.4 mg PO PC-BRKFST 30 Days #30 cap 10/26/23 [Rx] Follow up Appointment(s)/Referral(s): Noah Tabares MD [STAFF PHYSICIAN] - 1 Week Zoie Moore DO [Primary Care Provider] - 1-2 days [facility] [NON-STAFF] - 1-2 Days ([facility] will call you to schedule your in home nursing, physical therapy, and occupational therapy visits.) Discharge Disposition: HOME WITH HOME HEALTH SERVICES
== END 2023-10-26 15:14 | disposition home health service (06) | DRG 308 ==
LOC: EC 03:08 → 3NCARDOBS 06:23 → 1SOBS 12:32 → 3SCARD 14:16 → OBSVTOIN 10-24 06:59
PROVIDERS: ADMIT Family Medicine; ATTEND Family Medicine
DX: R00.1 Bradycardia, unspecified (principal); N17.0 Acute kidney failure with tubular necrosis; E87.1 Hypo-osmolality and hyponatremia; N39.0 Urinary tract infection, site not specified; T50.0X5A Adverse effect of mineralocorticoids and their antagonists, initial encounter; T46.5X5A Adverse effect of other antihypertensive drugs, initial encounter; I13.0 Hypertensive heart and chronic kidney disease with heart failure and stage 1 through stage 4 chronic kidney disease, or unspecified chronic kidney disease; I50.22 Chronic systolic (congestive) heart failure; E87.20 Acidosis, unspecified; I48.19 Other persistent atrial fibrillation; W19.XXXA Unspecified fall, initial encounter; R53.1 Weakness; E03.9 Hypothyroidism, unspecified; E11.21 Type 2 diabetes mellitus with diabetic nephropathy; R33.8 Other retention of urine; Z79.890 Hormone replacement therapy; E11.22 Type 2 diabetes mellitus with diabetic chronic kidney disease; N18.30 Chronic kidney disease, stage 3 unspecified; E78.5 Hyperlipidemia, unspecified; M19.90 Unspecified osteoarthritis, unspecified site; I25.10 Atherosclerotic heart disease of native coronary artery without angina pectoris; T38.3X5A Adverse effect of insulin and oral hypoglycemic [antidiabetic] drugs, initial encounter; Z87.19 Personal history of other diseases of the digestive system; E86.1 Hypovolemia; E87.5 Hyperkalemia; R29.6 Repeated falls; Z91.81 History of falling; I25.5 Ischemic cardiomyopathy; X58.XXXA Exposure to other specified factors, initial encounter; Z79.01 Long term (current) use of anticoagulants; Z79.02 Long term (current) use of antithrombotics/antiplatelets; Z79.4 Long term (current) use of insulin; Z79.84 Long term (current) use of oral hypoglycemic drugs; Z79.899 Other long term (current) drug therapy; Z90.710 Acquired absence of both cervix and uterus; Z95.5 Presence of coronary angioplasty implant and graft; Z96.653 Presence of artificial knee joint, bilateral; Z90.49 Acquired absence of other specified parts of digestive tract; R00.0 Tachycardia, unspecified
CPT/HCPCS: 36415; 71045; 76770; 80048; 80053; 81001; 83605; 83735; 83880; 84132; 84439; 84443; 84484; 85025; 85610; 85730; 93005; 93308; 94760; 96360; 96361; 99285

== ENCOUNTER 2023-10-31 10:15 | Day surgery (SDC) | payer MEDICARE ==
[2023-10-31] MEDS ORDERED: LIDOCAINE 1% INJ 10MG/ML (20 ML MDV) ONE (10:22)
[2023-10-31] MEDS: SODIUM CHLORIDE 0.9% 1,000 ML IV ONE (10:55)
[2023-10-31 11:29] LABS: Glucose,Whole Blood 116 mg/dL (70-110)
[2023-10-31 11:51] LABS: ALT 16 U/L (4-34); AST 22 U/L (14-36); African American GFR (CKD) 80 (>60 ml/min/1.73 sqM); Albumin 3.6 g/dL (3.5-5.0); Alkaline Phosphatase 70 U/L (38-126); Anion Gap 6 mmol/L; Blood Urea Nitrogen 27 mg/dL (7-17); Calcium 9.7 mg/dL (8.4-10.2); Carbon Dioxide 26 mmol/L (22-30); Chloride 110 mmol/L (98-107); Glucose 114 mg/dL (74-99); Non-African American GFR(CKD) 70 (>60 ml/min/1.73 sqM); Potassium 4.3 mmol/L (3.5-5.1); Sodium 142 mmol/L (137-145); Total Bilirubin 0.4 mg/dL (0.2-1.3); Total Protein 6.4 g/dL (6.3-8.2)
--- NOTE | 2023-10-31 12:36 | P.HPCAR ---
History of Present Illness This is Dr. Kimbrough dictating an H/P on this patient The patient was interviewed and examined IMPRESSION / ASSESSMENT: Patient recently discharged from the hospital after a fall. Acute renal failure on account of that Persistent atrial fibrillation, symptomatic, unknown duration Type 2 diabetes Hypertension CAD/stenting to the proximal LAD, drug-eluting stent History of cardiomyopathy ejection fraction 40-45% History of hyperkalemia Left atrial enlargement PLAN: A-fib ablation with PVI and linear ablation of the left atrium HPI Patient continues to be symptomatic from atrial fibrillation with tiredness and fatigue She also complains of weakness in the legs off-and-on She was recently admitted to the hospital with a fall and was unable to get up with elevated CPKs elevated creatinine levels Now creatinine is back to the baseline of 0.9 potassium is normal. She does have a history of hyperkalemia in the past She denies any fever chills cough any syncopal spells since discharge ROS: No fever chills or rigors, no cough, phlegm or expectoration, no nausea, vomiting or diarrhea, no hematuria, dysuria, no musculoskeletal complaints, no strokes or seizures, no skin lesions. EXAMINATION: 135/75 mmHg afebrile pulse rate in the 60s Breath sounds are reduced bilaterally Heart sounds irregular but normal no murmurs No JVD no lower extremity edema REVIEW OF LABS, ECG & MEDICAL DATA Sodium 142, potassium 4.3 BUN 27 creatinine 0.86 Normal liver function TSH 5.2 Physical Exam Vitals: Vital Signs Temp Pulse Resp BP Pulse Ox 10/31/23 11:47 98.2 F 69 16 135/75 99 Intake and Output 10/30/23 10/31/23 10/31/23 22:59 06:59 14:59 Intake Total 50 Balance 50 Intake: IV 50 Other: Weight 114.2 kg Past Medical History Past Medical History: Atrial Fibrillation, Coronary Artery Disease (CAD), Diabetes Mellitus, GERD/Reflux, GI Bleed, Hyperlipidemia, Hypertension, Osteoarthritis (OA) Additional Past Medical History / Comment(s): See Dr Cabrales's H&P. see dr kimbrough's H & P History of Any Multi-Drug Resistant Organisms: None Reported Past Surgical History: Appendectomy, Section, Cholecystectomy, Heart Catheterization With Stent, Hysterectomy, Joint Replacement, Orthopedic Surgery Additional Past Surgical History / Comment(s): Bilateral carpal tunnel, bilateral total knee replacements, colonoscopy, EGD. Past Anesthesia/Blood Transfusion Reactions: Previous Problems w/ Anesthesia Additional Past Anesthesia/Blood Transfusion Reaction / Comment(s): Had spinal fluid leak w/ prior spinal for knee surgery-stated was told not to have spinals. No problems with blood transfusion received 30-40 yrs ago. Date of Last Stent Placement:: 2022 Smoking Status: Never smoker - Past Family History Mother Family Medical History: No Reported History Physical Examination Vital Signs Temp Pulse Resp BP Pulse Ox 10/31/23 11:47 98.2 F 69 16 135/75 99 Intake and Output 10/30/23 10/31/23 10/31/23 22:59 06:59 14:59 Intake Total 50 Balance 50 Intake: IV 50 Other: Weight 114.2 kg Results 10/31/23 11:25 Cardiac Enzymes 10/31/23 Range/Units 11:25 AST 22 (14-36) U/L Comprehensive Metabolic Panel 10/31/23 Range/Units 11:25 Sodium 142 (137-145) mmol/L Potassium 4.3 (3.5-5.1) mmol/L Chloride 110 H (98-107) mmol/L Carbon Dioxide 26 (22-30) mmol/L BUN 27 H (7-17) mg/dL Creatinine 0.86 (0.52-1.04) mg/dL Glucose 114 H (74-99) mg/dL Calcium 9.7 (8.4-10.2) mg/dL AST 22 (14-36) U/L ALT 16 (4-34) U/L Alkaline Phosphatase 70 (38-126) U/L Total Protein 6.4 (6.3-8.2) g/dL Albumin 3.6 (3.5-5.0) g/dL Current Medications Generic Name Dose Route Start Last Admin Trade Name Freq PRN Reason Stop Dose Admin Sodium Chloride 1,000 mls @ 20 mls/hr 10/31/23 05:54 Saline 0.9% IV 11/30/23 05:55 .Q24H RAFFI Intake and Output 10/30/23 10/31/23 10/31/23 22:59 06:59 14:59 Intake Total 50 Balance 50 Intake: IV 50 Other: Weight 114.2 kg Patient Weight 11/01/23 06:59 Weight 114.2 kg 10/31/23 11:25
[2023-10-31] MEDS: LIDOCAINE 1% INJ 10MG/ML (20 ML MDV) SQ ONE (12:57)
[2023-10-31] MEDS: HEPARIN SOD,PORK IN 0.45% NACL 25,000 UNIT in 0.45% NACL 1 250ML.BAG IV ONE ×2 (13:15)
[2023-10-31] MEDS ORDERED: HEPARIN SODIUM 1,000 UN/ML (10ML VL) ONE (13:26)
[2023-10-31] MEDS: IOPAMIDOL-370 100ML BTL INJ ONE (14:12)
[2023-10-31 15:29] LABS: T4, Free (Free Thyroxine) 1.08 ng/dL (0.78-2.19)
[2023-10-31] MEDS: HEPARIN SODIUM (1,000 UNIT/ML) 1,000 UNIT in SODIUM CHLORIDE 0.9% 1,000 ML IRRIGATION ONE (15:54)
[2023-10-31] MEDS: LACTATED RINGERS 1,000 ML IV ONE (16:03)
[2023-10-31] MEDS ORDERED: ACETAMINOPHEN TAB 325 MG TAB PO PRN (16:15)
--- NOTE | 2023-10-31 16:24 | P.EPPROC ---
- EP Procedure Note Electrophysiology Procedure Note: PROCEDURE A. fib ablation with PVI, left atrial septal ablation, left atrial roof ablation and left atrial anterior wall ablation to bridge the anterior wall scar DIAGNOSIS Persistent atrial fibrillation, symptomatic, refractory to therapy RESULT No left atrial appendage mass seen on intracardiac echo Very prominent pericarditis with a very small effusion noted around the left ventricle but particularly posterior to the left atrium. Posterior left atrial wall was thick Successful A. fib ablation/pulmonary vein isolation of all veins using cryo- ablation Complete entrance block in all 4 veins confirmed Successful ablation of the left atrial septum Successful ablation of the left atrial roof Successful ablation of the isthmus between an anterior wall scar on the LA No evidence for phrenic nerve injury Esophageal deflection YES Electrical cardioversion with a synchronized shock across the chest YES / NO PROCEDURE DETAILS Written informed consent prior to procedure. Patient brought to the EP lab. General anesthesia given. Heparin administered. A city maintained above 300 seconds Both groins prepped and draped per protocol and venous sheaths placed. Esophagus intubated, circa catheter for temperature monitoring an endoscope for possible esophageal deflection. Phrenic nerve monitoring performed. Esophageal temperature monitoring performed. Esophageal deflection performed if circa catheter overlapping with the balloon or circa temperature less than 27.5C Intracardiac echocardiography performed. Pericardium evaluated. Left atrial appendage evaluated. Left atrium evaluated along with pulmonary veins Transseptal catheterization performed under fluoroscopic guidance and intracardiac echo guidance Cryoablation sheath exchanged, balloon catheter along with achieve catheter placed in the left atrium. Pulmonary veins isolated in the following sequence: Left superior pulmonary vein followed by left inferior pulmonary vein, followed by right inferior pulmonary vein and lastly right superior pulmonary vein. Phrenic nerve stimulation along with capture thresholds within the SVC and right superior pulmonary vein to identify the phrenic nerve proximity to the cryo- balloon. Pulmonary veins isolated and confirmed with entrance and exit block. Phrenic nerve integrity confirmed at the end of the procedure Ablation of the left atrial roof performed with sequential lesions from the left superior to the right superior pulmonary veins. Rotation mapping confirmed complete isolation and ablation Ablation of the left atrial septum performed with cannulation of the superior branch of the right inferior to achieve ablation of the posterior septum of the left atrium. Voltage mapping confirmed complete isolation on the septum Patient was in an organized rhythm. Voltage mapping as well as activation mapping was performed in the left atrium An anterior scar was documented, 1 being closer to the roof and the other closer to the mitral annulus anteriorly. Activation was proceeding between the isthmus and RF ablation was performed within the isthmus joining the 2 scars The patient remained in an atrial tachycardia with somewhat variable cycle length. The atrial electrograms in lead V1 were negative Electrical cardioversion performed for persistence of atrial fibrillation despite successful ablation. Diagnostic catheters for the high right atrium, His bundle, coronary sinus placed. LA and RA pressures recorded RA pressure: 10/06/16 LA pressure: 21/02/ Diagnostic EP study with coronary sinus pacing and recording Baseline measurements: Venous sheaths were removed and hemostasis assured with a closure device. Patient extubated and transferred to recovery Increase procedural time During ablation multiple attempts had to be made to move the esophagus a safe distance of the from the pulmonary vein draining cryoablation, to avoid excessive thermal cooling of the esophagus This took extra time and effort to keep the esophagus a safe distance away from the cryoablation balloon. Multiple attempts needed for successful cryoablation isolation of the the right superior, right inferior pulmonary vein and the left inferior pulmonary veins The patient had a very large left atrium and a long left atrial roof. Successful ablation was performed along the roof from the right superior to the left superior pulmonary veins and complete isolation of the roof was confirmed with voltage mapping Detailed scar mapping of the left atrium was performed The patient had an anterior wall scar within the isthmus in between Ablation was performed within this isthmus PROCEDURES PERFORMED Diagnostic EP study CS pacing and recording Left and right transseptal catheterization Catheter the mapping of the tachycardia Intracardiac echocardiography Pulmonary vein isolation with transseptal and comprehensive EPS, [id number] Extended procedure duration Drug infusion, +[id number] Left atrial roof line, +[id number] Linear ablation, left atrium, +53711 Electrical cardioversion with a synchronized shock across the chest [id number]
[2023-10-31] MEDS: DOPamine DRIP 800 MG in DEXTROSE/WATER 1 250ML.BAG IV SCH (16:32)
[2023-10-31 20:03] LABS: Glucose,Whole Blood 129 mg/dL (70-110)
[2023-10-31] MEDS: RIVAROXABAN 20 MG TAB PO SCH (20:17)
[2023-10-31] MEDS: PANTOPRAZOLE 40 MG TABLET PO SCH (20:17)
[2023-10-31] MEDS: ATORVASTATIN 20 MG TAB PO SCH (20:17)
[2023-10-31] MEDS: PREGABALIN 75 MG CAP PO SCH (20:17)
[2023-10-31] MEDS: ACETAMINOPHEN IV (For NPO) 1,000 MG in EMPTY BAG 1 BAG IVPB ONE (20:17)
[2023-11-01 00:10] VITALS: RESP 18
[2023-11-01 03:21] VITALS: TEMP 98.1
[2023-11-01 05:51] LABS: Glucose,Whole Blood 166 mg/dL (70-110)
[2023-11-01] MEDS: LEVOTHYROXINE 50 MCG TAB PO SCH (06:07)
[2023-11-01] MEDS: SODIUM CHLORIDE 0.9% 1,000 ML IV SCH (06:18)
--- NOTE | 2023-11-01 08:18 | P.DS ---
Providers Attending physician: Richie Kimbrough Primary care physician: [facility] Hospital Course: Patient is resting comfortably in bed No respiratory distress She states she has a cough On examination her blood pressure 113/53 mmHg respirations 16-18 pulse rate in the 50s afebrile Breath sounds reduced bilaterally fine crackles at the bases Heart sounds S1-S2 normal no murmurs No edema, no JVD Impression Persistent atrial fibrillation with RVR Status post pulmonary vein isolation, left atrial septal ablation, left atrial roof ablation Voltage mapping of the left atrium confirmed complete quiescence at these ablation sites Anterior left atrial scar with a gap/isthmus. Successful ablation to bridge this isthmus Residual somewhat irregular atrial tachycardia with P waves that are negative in lead V1 and delayed upright in inferior leads, compared to V1 Successful electrical cardioversion to sinus rhythm Intracardiac echo revealed thickened pericardium in the base of the left ventricle and in the posterior left atrium/right atrium consistent with prior pericarditis Plan IV Lasix 40 mg 1 dose only Incentive spirometer Ambulate around in the room and hallways Continue rivaroxaban Continue atorvastatin and diabetes medications Watch thyroid function. Patient is on 50 mcg of levothyroxine and her TSH is very mildly elevated at 5.2 Renal function has normalized creatinine 0.9 Discharge today Follow-up with Dr. Cabrales and Dr. Moore If she has recurrence of arrhythmia in the future, mapping of the atrial tachycardia in the right atrium and left atrium no sooner than 3 months after this ablation Beta-blockers have been discontinued completely at this point Stop amitriptyline. Patient complains of recurrent falls and weakness in the legs. She was recently admitted for this Plan - Discharge Summary Discharge Rx Participant: No New Discharge Prescriptions: Discontinued Amitriptyline HCl 10 mg PO HS Metoprolol Tartrate [Lopressor] 25 mg PO TID #90 tab Furosemide [Lasix] 40 mg PO DAILY No Action Omeprazole 20 mg PO HS Rivaroxaban [Xarelto] 20 mg PO W/SUPPER allopurinoL [Zyloprim] 300 mg PO DAILY metFORMIN HCL [Glucophage] 1,000 mg PO BID oxyBUTYnin chloride [Ditropan] 5 mg PO DAILY Cholecalciferol [Vitamin D3 (25 Mcg = 1000 Iu)] 25 mcg PO DAILY Insulin Glargine,Hum.rec.anlog [Lantus Solostar Pen] 20 - 40 unit SQ HS Pregabalin [Lyrica] 150 mg PO TID Nitroglycerin Sl Tabs [Nitrostat] 0.4 mg SUBLINGUAL Q5M PRN #50 tab PRN Reason: Chest Pain Cetirizine HCl [Zyrtec] 10 mg PO DAILY Insulin Aspart [NovoLOG Flexpen] See Protocol SQ PC-TID HYDROcodone/APAP 10-325MG [[place] 10-325] 1 tab PO Q6HR PRN PRN Reason: Pain Atorvastatin [Lipitor] 20 mg PO HS Ferrous Sulfate [Iron (65 MG Elemental)] 325 mg PO DAILY Empagliflozin [Jardiance] 10 mg PO DAILY Semaglutide [Ozempic] 0.25 mg SQ WE Aspirin 81 mg PO DAILY 30 Days #30 tab Tamsulosin [Flomax] 0.4 mg PO PC-BRKFST 30 Days #30 cap Levothyroxine Sodium [Synthroid] 50 mcg PO DAILY@0630 30 Days #30 tab Discharge Medication List Omeprazole 20 mg PO HS 06/04/16 [History] Rivaroxaban [Xarelto] 20 mg PO W/SUPPER 06/04/16 [History] allopurinoL [Zyloprim] 300 mg PO DAILY 06/04/16 [History] metFORMIN HCL [Glucophage] 1,000 mg PO BID 04/29/20 [History] Cholecalciferol [Vitamin D3 (25 Mcg = 1000 Iu)] 25 mcg PO DAILY 09/03/22 [History] Insulin Glargine,Hum.rec.anlog [Lantus Solostar Pen] 20 - 40 unit SQ HS 09/03/22 [History] oxyBUTYnin chloride [Ditropan] 5 mg PO DAILY 09/03/22 [History] Pregabalin [Lyrica] 150 mg PO TID 11/17/22 [History] Nitroglycerin Sl Tabs [Nitrostat] 0.4 mg SUBLINGUAL Q5M PRN #50 tab 03/09/23 [Rx] Cetirizine HCl [Zyrtec] 10 mg PO DAILY 04/11/23 [History] Empagliflozin [Jardiance] 10 mg PO DAILY 04/11/23 [History] Ferrous Sulfate [Iron (65 MG Elemental)] 325 mg PO DAILY 04/11/23 [History] Atorvastatin [Lipitor] 20 mg PO HS 10/22/23 [History] HYDROcodone/APAP 10-325MG [[place] 10-325] 1 tab PO Q6HR PRN 10/22/23 [History] Insulin Aspart [NovoLOG Flexpen] See Protocol SQ PC-TID 10/22/23 [History] Semaglutide [Ozempic] 0.25 mg SQ WE 10/22/23 [History] Aspirin 81 mg PO DAILY 30 Days #30 tab 10/26/23 [Rx] Levothyroxine Sodium [Synthroid] 50 mcg PO DAILY@0630 30 Days #30 tab 10/26/23 [Rx] Tamsulosin [Flomax] 0.4 mg PO PC-BRKFST 30 Days #30 cap 10/26/23 [Rx] Follow up Appointment(s)/Referral(s): Richie Kimbrough MD [STAFF PHYSICIAN] - As Needed (APPT ON 11/04/23 AT 4:15PM Follow-up with Dr. Cabrales) Activity/Diet/Wound Care/Special Instructions: Post EP study - Ablation instructions 1. Keep access sites dry for 2 days. 2. No heavy lifting or straining for 2 days. 3. Avoid bending the hips repeatedly for 2 days. 4. You may go up and down stairs slowly Call if the following is noted 1. Bleeding, increasing swelling or pain at the access sites. 2. Increasing chest discomfort, especially upon taking a deep breath. 3. Increasing shortness of breath, at rest or with exertion. 4. Undue cough / phlegm 5. Difficulty or pain while swallowing. 6. Pain or change in color in the extremities. 7. Fever, chills, rigors. 8. Increasing headache or neurologic symptoms. 9. Dizziness, fainting, palpitations Stop amitriptyline Hold Lasix Stop metoprolol Continue Xarelto 20 mg p.o. daily Discharge Disposition: HOME SELF-CARE
[2023-11-01] MEDS: ASPIRIN 81 MG PO SCH (08:26)
[2023-11-01] MEDS: DAPAGLIFLOZIN PROPANEDIOL 5 MG TABLET PO SCH (08:26)
[2023-11-01] MEDS: FUROSEMIDE 10 MG/ML 4 ML VIAL IV STA (08:26)
[2023-11-01] MEDS: TAMSULOSIN 0.4 MG CAP.ER.24H PO SCH (08:26)
[2023-11-01] MEDS: IPRATROPIUM-ALBUTEROL 3 ML NEB INHALATION STA (09:47)
[2023-11-01 11:18] LABS: Glucose,Whole Blood 180 mg/dL (70-110)
[2023-11-01 11:34] LABS: African American GFR (CKD) 60 (>60 ml/min/1.73 sqM); Anion Gap 7 mmol/L; Blood Urea Nitrogen 28 mg/dL (7-17); Calcium 9.2 mg/dL (8.4-10.2); Carbon Dioxide 21 mmol/L (22-30); Chloride 108 mmol/L (98-107); Glucose 194 mg/dL (74-99); Non-African American GFR(CKD) 52 (>60 ml/min/1.73 sqM); Sodium 136 mmol/L (137-145)
[2023-11-01 14:24] VITALS: BP 142/70; PULSE 47
[2023-11-06] MEDS ORDERED: Semaglutide [Ozempic] 0.25 MG/0.368 ML Pen.Injctr SQ SCH (09:00)
== END 2023-11-01 16:15 | disposition home or self-care (01) ==
LOC: CATHEP 10:15 → 3SCARD 15:42 → CATHEP 11-01 16:15
PROVIDERS: ATTEND Internal Medicine Clinical Cardiac Electrophysiology
DX: I48.19 Other persistent atrial fibrillation (principal); N17.9 Acute kidney failure, unspecified; I10 Essential (primary) hypertension; E11.9 Type 2 diabetes mellitus without complications; I25.10 Atherosclerotic heart disease of native coronary artery without angina pectoris; Z95.5 Presence of coronary angioplasty implant and graft; E78.5 Hyperlipidemia, unspecified; K21.9 Gastro-esophageal reflux disease without esophagitis; M19.90 Unspecified osteoarthritis, unspecified site; Z98.891 History of uterine scar from previous surgery; Z90.49 Acquired absence of other specified parts of digestive tract; Z90.89 Acquired absence of other organs; Z90.710 Acquired absence of both cervix and uterus; Z79.899 Other long term (current) drug therapy; Z98.890 Other specified postprocedural states
CPT/HCPCS: 93656; 93657; 86900; 86901; 84439; 80053; 80048; 84443; 86850; C1759; C1894 ×2; C1769 ×3; C1760 ×2; C1730 ×2; C1731; C1893; C1733; C1766; C1732; J1940; J2001; J1644 ×2; Q9967; J1265

== ENCOUNTER → 2023-11-11 | Outpatient (CLI) | payer MEDICARE ==
[2023-11-11 15:14] LABS: HCT 32.2 % (37.2-46.3); HGB 9.4 g/dL (12.0-15.0); MCH 26.3 pg (27.0-32.0); MCHC 29.2 g/dL (32.0-37.0); MCV 89.9 FL (80.0-97.0); Mean Platelet Volume 11.6 FL (9.5-12.2); NRBC Per 100 WBC 0 X 10*3/uL (0.00-0.01); Platelet Count 246 X 10*3/uL (140-440); RBC 3.58 X 10*6/uL (4.10-5.20); WBC 8.97 X 10*3/uL (4.50-10.00)
[2023-11-11 15:54] LABS: ALT 14 U/L (8-44); AST 17 U/L (13-35); Albumin 4.2 g/dL (3.8-4.9); Albumin/Globulin Ratio 1.62 Ratio (1.60-3.17); Alkaline Phosphatase 77 U/L (41-126); BUN/Creat Ratio 34.71 Ratio (12.00-20.00); Blood Urea Nitrogen 48.6 mg/dL (9.0-27.0); Calcium 9.7 mg/dL (8.7-10.3); Carbon Dioxide 22.2 mmol/L (21.6-31.8); Chloride 107 mmol/L (96-109); Chol/HDL Ratio 2.86 Ratio; Globulin 2.6 g/dL (1.6-3.3); Glucose 119 mg/dL (70-110); LDL Cholesterol,Calculated 59.2 mg/dL (0.0-131.0); Potassium 5.6 mmol/L (3.5-5.5); Sodium 142 mmol/L (135-145); Total Bilirubin 0.5 mg/dL (0.3-1.2); Total Protein 6.8 g/dL (6.2-8.2)
[2023-11-11 16:23] LABS: NT-Pro-B-Type Natriuretic Pept 3684 pg/mL (0-125)
== END | disposition home or self-care (01) ==
LOC: LABWHC1 08:10
PROVIDERS: ATTEND Student in an Organized Health Care Education/Training Program
DX: I50.9 Heart failure, unspecified (principal); I48.91 Unspecified atrial fibrillation; D64.9 Anemia, unspecified; N18.9 Chronic kidney disease, unspecified
CPT/HCPCS: 36415; 80053; 80061; 83036; 83880; 85027

== ENCOUNTER 2023-11-20 17:47 | Inpatient (IN) | payer MEDICARE ==
--- NOTE | 2023-11-20 18:30 | ED ---
Syncope HPI - General Chief Complaint: Fall Stated Complaint: FALL Time Seen by Provider: 11/20/23 17:51 Source: patient, EMS, RN notes reviewed, old records reviewed Mode of arrival: ambulatory Limitations: no limitations - History of Present Illness Initial Comments: This is a 68-year-old female to the ER for evaluation of a syncopal event. Syncope fell forward with facial injury. Patient has no headache chest pain shortness with abdominal pain but is complaining of severe facial pain with minimal bleeding and severe nose pain MD Complaint: loss of consciousness, collapsed, other (Fell forward off the toilet) -: hour(s) Prodromal Symptoms: headache -: second(s) Witnessed: no Injuries Sustained Associated with Event: None Current Symptoms: none History: previous syncopal episode Context: at rest - Related Data Home Medications Medication Instructions Recorded Confirmed Omeprazole 20 mg PO HS 06/04/16 11/20/23 Rivaroxaban [Xarelto] 20 mg PO W/SUPPER 06/04/16 11/20/23 allopurinoL [Zyloprim] 300 mg PO DAILY 06/04/16 11/20/23 metFORMIN HCL [Glucophage] 1,000 mg PO BID 04/29/20 11/20/23 Cholecalciferol [Vitamin D3 (25 25 mcg PO DAILY 09/03/22 11/20/23 Mcg = 1000 Iu)] oxyBUTYnin chloride [Ditropan] 5 mg PO DAILY 09/03/22 11/20/23 Pregabalin [Lyrica] 150 mg PO TID 11/17/22 11/20/23 Cetirizine HCl [Zyrtec] 10 mg PO DAILY 04/11/23 11/20/23 Empagliflozin [Jardiance] 10 mg PO DAILY 04/11/23 11/20/23 Ferrous Sulfate [Iron (65 MG 325 mg PO DAILY 04/11/23 11/20/23 Elemental)] Atorvastatin [Lipitor] 20 mg PO HS 10/22/23 11/20/23 HYDROcodone/APAP 10-325MG [[place] 1 tab PO Q6HR PRN 10/22/23 11/20/23 10-325] Insulin Aspart [NovoLOG Flexpen] See Protocol SQ PC-TID 10/22/23 11/20/23 Previous Rx's Medication Instructions Recorded Nitroglycerin Sl Tabs [Nitrostat] 0.4 mg SUBLINGUAL Q5M PRN #50 tab 03/09/23 Levothyroxine Sodium [Synthroid] 50 mcg PO DAILY@0630 30 Days #30 10/26/23 tab Tamsulosin [Flomax] 0.4 mg PO PC-BRKFST 30 Days #30 cap 10/26/23 Ferrous Sulfate [Iron (65 MG 325 mg PO BID-W/MEALS tab 11/26/23 Elemental)] hydroCHLOROthiazide [Hydrodiuril] 25 mg PO DAILY #30 tab 11/26/23 Allergies Allergy/AdvReac Type Severity Reaction Status Date / Time No Known Allergies Allergy Verified 11/20/23 20:05 Review of Systems ROS Statement: Those systems with pertinent positive or pertinent negative responses have been documented in the HPI. ROS Other: All systems not noted in ROS Statement are negative. Past Medical History Past Medical History: Atrial Fibrillation, Coronary Artery Disease (CAD), Diabetes Mellitus, GERD/Reflux, GI Bleed, Hyperlipidemia, Hypertension, Osteoarthritis (OA) Additional Past Medical History / Comment(s): See Dr Cabrales's H&P. see dr garcia's H & P History of Any Multi-Drug Resistant Organisms: None Reported Past Surgical History: Appendectomy, Section, Cholecystectomy, Heart Catheterization With Stent, Hysterectomy, Joint Replacement, Orthopedic Surgery Additional Past Surgical History / Comment(s): Bilateral carpal tunnel, bilateral total knee replacements, colonoscopy, EGD. Past Anesthesia/Blood Transfusion Reactions: Previous Problems w/ Anesthesia Additional Past Anesthesia/Blood Transfusion Reaction / Comment(s): Had spinal fluid leak w/ prior spinal for knee surgery-stated was told not to have spinals. No problems with blood transfusion received 30-40 yrs ago. Date of Last Stent Placement:: 2022 Past Psychological History: No Psychological Hx Reported Smoking Status: Never smoker - Past Family History Mother Family Medical History: No Reported History General Exam General appearance: alert, in no apparent distress Head exam: Present: atraumatic, normocephalic, normal inspection Eye exam: Present: normal appearance, PERRL, EOMI. Absent: scleral icterus, conjunctival injection, periorbital swelling ENT exam: Present: normal exam, mucous membranes moist Neck exam: Present: normal inspection. Absent: tenderness, meningismus, lymphadenopathy Respiratory exam: Present: normal lung sounds bilaterally. Absent: respiratory distress, wheezes, rales, rhonchi, stridor Cardiovascular Exam: Present: normal rhythm, bradycardia, normal heart sounds. Absent: systolic murmur, diastolic murmur, rubs, gallop, clicks GI/Abdominal exam: Present: soft, normal bowel sounds. Absent: distended, tenderness, guarding, rebound, rigid Extremities exam: Present: normal inspection, full ROM, normal capillary refill. Absent: tenderness, pedal edema, joint swelling, calf tenderness Back exam: Present: normal inspection Neurological exam: Present: alert, oriented X3, CN II-XII intact Psychiatric exam: Present: normal affect, normal mood Skin exam: Present: warm, dry, intact, normal color. Absent: rash Course Vital Signs 11/20/23 11/20/23 11/20/23 17:52 20:44 21:45 Temperature 98.1 F Pulse Rate 49 L 61 52 L Respiratory 18 18 24 Rate Blood Pressure 131/76 183/72 171/70 O2 Sat by Pulse 93 L 92 L 93 L Oximetry - Reevaluation(s) Reevaluation #1: 11/20/23 21:11 Medical records reviewed Reevaluation #2: 11/20/23 21:11 Patient has no recurrent syncopal event pain controlled Reevaluation #3: 11/20/23 21:11 Patient informed of results questions answered Reevaluation #4: Was pt. sent in by a medical professional or institution (, PA, WEATHER FORECASTER, urgent care, hospital, or correction...) When possible be specific @ -no Did you speak to anyone other than the patient for history (EMS, parent, family, police, friend...)? What history was obtained from this source @ -no Did you review nursing and triage notes (agree or disagree)? Why? @ -agree Are old charts reviewed (outside hosp., previous admission, EMS record, old EKG, old radiological studies, urgent care reports/EKG's, correction records)? Report findings @ -yes Differential Diagnosis (chest pain, altered mental status, abdominal pain women, abdominal pain men, vaginal bleeding, weakness, fever, dyspnea, syncope, headache, dizziness, GI bleed, back pain, seizure, CVA, palpatations, mental health, musculoskeletal)? @ -prior EKG interpreted by me (3pts min.). @ -yes X-rays interpreted by me (1pt min.). @ -yes negative for acute disease CT interpreted by me (1pt min.). @ -Yes positive for nasal fracture U/S interpreted by me (1pt. min.). @ -no What testing was considered but not performed or refused? (CT, X-rays, U/S, labs)? Why? @ -none What meds were considered but not given or refused? Why? @ -none Did you discuss the management of the patient with other professionals (professionals i.e. , PA, WEATHER FORECASTER, lab, RT, psych nurse, social work lecturer, chute tender, teacher, bank secrecy act officer, supportive employment case manager)? Give summary @ -no Was smoking cessation discussed for >3mins.? @ -no Were there social determinants of health that impacted care today? How? (Homelessness, low income, unemployed, alcoholism, drug addiction, transportation, low edu. Level, literacy, decrease access to med. care, fpc, rehab)? @ -none Was there de-escalation of care discussed even if they declined (Discuss DNR or withdrawal of care, Hospice)? DNR status @ -no What co-morbidities impacted this encounter? (DM, HTN, Smoking, COPD, CAD, Cancer, CVA, ARF, Chemo, Hep., AIDS, mental health diagnosis, sleep apnea, morbid obesity)? @ -none Was patient admitted / discharged? Hospital course, mention meds given and route, prescriptions, significant lab abnormalities, going to OR and other pertinent info. @ - 68 female to the ER for evaluation of a syncopal event syncopal event while sitting on the toilet she did fall forward with loss of consciousness sustaining a nasal fracture, patient is not being admitted for trauma patient is being admitted for syncopal event without anemia Admitted Was critical care preformed (if so, how long)? @ -yes31 Undiagnosed new problem with uncertain prognosis? @ -no Drug Therapy requiring intensive monitoring for toxicity (Heparin, Nitro, Insulin, Cardizem)? @ -no Were any procedures done? @ -no Diagnosis/symptom? @ -Syncope, nasal fracture Acute, or Chronic, or Acute on Chronic? @ -Acute Uncomplicated (without systemic symptoms) or Complicated (systemic symptoms)? @ -Complicated Side effects of treatment? @ -no Exacerbation, Progression, or Severe Exacerbation? @ -exacerbation Poses a threat to life or bodily function? How? (Chest pain, USA, NE, pneumonia, PE, COPD, DKA, ARF, appy, cholecystitis, CVA, Diverticulitis, Homicidal, Suicidal, threat to staff... and all critical care pts) @ -yes extremes of age Reevaluation #5: Differential Syncope: Valvular disease, hypertrophic cardiomyopathy, pulmonary embolism, tamponade, tachycardia, bradycardia, NE, hypovolemia, hemorrhage, dissection, anemia, intracranial hemorrhage, seizure, hypoglycemia, carbon monoxide poisoning, this is not meant to be an all-inclusive list. - Consultations Consultation #1: Spoke with Dr. Aguiar who agrees to admit this patient EKG Findings - EKG Comments: EKG Findings:: EKG is sinus bradycardia 50 UT 176 QRS 94 QTc 425 Medical Decision Making - Medical Decision Making 68 female to the ER for evaluation of a syncopal event syncopal event while sitting on the toilet she did fall forward with loss of consciousness sustaining a nasal fracture, patient is not being admitted for trauma patient is being admitted for syncopal event without anemia - Lab Data Result diagrams: 11/25/23 07:39 11/25/23 07:39 Lab Results 11/20/23 11/20/23 11/20/23 Range/Units 18:51 18:51 18:51 WBC 6.0 (3.8-10.6) k/uL RBC 3.24 L (3.80-5.40) m/uL Hgb 8.6 L D (11.4-16.0) gm/dL Hct 28.6 L (34.0-46.0) % MCV 88.2 (80.0-100.0) fL MCH 26.6 (25.0-35.0) pg MCHC 30.1 L (31.0-37.0) g/dL RDW 18.5 H (11.5-15.5) % Plt Count 166 (150-450) k/uL MPV 9.7 Neutrophils % 75 % Lymphocytes % 15 % Monocytes % 7 % Eosinophils % 2 % Basophils % 0 % Neutrophils # 4.5 (1.3-7.7) k/uL Lymphocytes # 0.9 L (1.0-4.8) k/uL Monocytes # 0.4 (0-1.0) k/uL Eosinophils # 0.1 (0-0.7) k/uL Basophils # 0.0 (0-0.2) k/uL Hypochromasia Marked Anisocytosis Slight PT 11.9 (10.0-12.5) sec INR 1.1 (<1.2) APTT 27.3 (22.0-30.0) sec Sodium 142 (137-145) mmol/L Potassium 4.9 (3.5-5.1) mmol/L Chloride 112 H (98-107) mmol/L Carbon Dioxide 24 (22-30) mmol/L Anion Gap 6 mmol/L BUN 28 H (7-17) mg/dL Creatinine 0.99 (0.52-1.04) mg/dL Est GFR (CKD-EPI)AfAm 67 (>60 ml/min/1.73 sqM) Est GFR (CKD-EPI)NonAf 58 (>60 ml/min/1.73 sqM) Glucose 131 H (74-99) mg/dL Plasma Lactic Acid Travon (0.7-2.0) mmol/L Calcium 9.4 (8.4-10.2) mg/dL Phosphorus 3.0 (2.5-4.5) mg/dL Magnesium 1.8 (1.6-2.3) mg/dL Total Bilirubin 0.7 (0.2-1.3) mg/dL AST 18 (14-36) U/L ALT 11 (4-34) U/L Alkaline Phosphatase 65 (38-126) U/L Troponin I (0.000-0.034) ng/mL NT-Pro-B Natriuret Pep 4330 pg/mL Total Protein 6.3 (6.3-8.2) g/dL Albumin 3.9 (3.5-5.0) g/dL 11/20/23 11/20/23 Range/Units 18:51 18:51 WBC (3.8-10.6) k/uL RBC (3.80-5.40) m/uL Hgb (11.4-16.0) gm/dL Hct (34.0-46.0) % MCV (80.0-100.0) fL MCH (25.0-35.0) pg MCHC (31.0-37.0) g/dL RDW (11.5-15.5) % Plt Count (150-450) k/uL MPV Neutrophils % % Lymphocytes % % Monocytes % % Eosinophils % % Basophils % % Neutrophils # (1.3-7.7) k/uL Lymphocytes # (1.0-4.8) k/uL Monocytes # (0-1.0) k/uL Eosinophils # (0-0.7) k/uL Basophils # (0-0.2) k/uL Hypochromasia Anisocytosis PT (10.0-12.5) sec INR (<1.2) APTT (22.0-30.0) sec Sodium (137-145) mmol/L Potassium (3.5-5.1) mmol/L Chloride (98-107) mmol/L Carbon Dioxide (22-30) mmol/L Anion Gap mmol/L BUN (7-17) mg/dL Creatinine (0.52-1.04) mg/dL Est GFR (CKD-EPI)AfAm (>60 ml/min/1.73 sqM) Est GFR (CKD-EPI)NonAf (>60 ml/min/1.73 sqM) Glucose (74-99) mg/dL Plasma Lactic Acid Travon 1.4 (0.7-2.0) mmol/L Calcium (8.4-10.2) mg/dL Phosphorus (2.5-4.5) mg/dL Magnesium (1.6-2.3) mg/dL Total Bilirubin (0.2-1.3) mg/dL AST (14-36) U/L ALT (4-34) U/L Alkaline Phosphatase (38-126) U/L Troponin I 0.018 (0.000-0.034) ng/mL NT-Pro-B Natriuret Pep pg/mL Total Protein (6.3-8.2) g/dL Albumin (3.5-5.0) g/dL - Radiology Data Radiology results: report reviewed (CT brain and C-spine facial bones positive for nasal fracture), image reviewed Critical Care Time Critical Care Time: Yes Total Critical Care Time: 31 Disposition Clinical Impression: Syncope, Pre-syncope, Dehydration, JL (acute kidney injury), Nasal fracture Disposition: ADMITTED IP TO THIS [facility] Condition: Serious Is patient prescribed a controlled substance at d/c from ED?: No Time of Disposition: 21:10
[2023-11-20] MEDS: SODIUM CHLORIDE 0.9% 1,000 ML IV STA (18:53)
[2023-11-20 19:17] LABS: ALT 11 U/L (4-34); AST 18 U/L (14-36); African American GFR (CKD) 67 (>60 ml/min/1.73 sqM); Albumin 3.9 g/dL (3.5-5.0); Alkaline Phosphatase 65 U/L (38-126); Anion Gap 6 mmol/L; Blood Urea Nitrogen 28 mg/dL (7-17); Calcium 9.4 mg/dL (8.4-10.2); Carbon Dioxide 24 mmol/L (22-30); Chloride 112 mmol/L (98-107); Glucose 131 mg/dL (74-99); Magnesium 1.8 mg/dL (1.6-2.3); Non-African American GFR(CKD) 58 (>60 ml/min/1.73 sqM); Potassium 4.9 mmol/L (3.5-5.1); Sodium 142 mmol/L (137-145); Total Bilirubin 0.7 mg/dL (0.2-1.3); Total Protein 6.3 g/dL (6.3-8.2)
[2023-11-20 19:21] LABS: Anisocytosis Slight; Basophils % (A) 0 %; Eosinophils # (A) 0.1 k/uL (0-0.7); Eosinophils % (A) 2 %; HCT 28.6 % (34.0-46.0); Hypochromasia Marked; Lymphocytes # (A) 0.9 k/uL (1.0-4.8); Lymphocytes % (A) 15 %; MCH 26.6 pg (25.0-35.0); MCHC 30.1 g/dL (31.0-37.0); MCV 88.2 fL (80.0-100.0); Mean Platelet Volume 9.7; Monocytes # (A) 0.4 k/uL (0-1.0); Monocytes % (A) 7 %; Neutrophils # (A) 4.5 k/uL (1.3-7.7); Neutrophils % (A) 75 %; Platelet Count 166 k/uL (150-450); RBC 3.24 m/uL (3.80-5.40); RDW 18.5 % (11.5-15.5)
[2023-11-20 19:25] LABS: NT-Pro-B-Type Natriuretic Pept 4330 pg/mL
--- NOTE | 2023-11-20 19:25 | CT ---
EXAMINATION TYPE: CT brain cspine wo con DATE OF EXAM: 11/20/2023 COMPARISON: 05/26/2023 HISTORY: fell off toilet and hit the floor CT DLP: combined 1411.1 mGycm, Automated exposure control for dose reduction was used. CONTRAST: None CT of the brain is performed utilizing 3 mm thick sections through the posterior fossa and 3 mm thick sections through the remaining calvarium. Study is performed within 24 hours of arrival to the hospital. No abnormal hyperdensity is present to suggest an acute intracranial hemorrhage. No mass lesion is evident. No acute infarcts are evident. Ventricles and sulci are appropriate for the patient age. Soft tissue swelling is over the anterior frontal region. Fluid levels are within the bilateral maxillary sinuses. There is opacification to the nasal passages . Some echoes thickenings within ethmoid air cells. Sphenoid sinuses are clear. CT facial bones study same date for fractures. IMPRESSIONS: 1. No acute intracranial process. Follow-up MRI can be performed as clinically indicated. CT cervical spine. COMPARISON: None CT of the cervical spine is performed in the axial plane at 2 mm thick sections. Reconstructed image s in the coronal, and sagittal plane are reviewed on the computer. No acute fractures are evident. Vertebral body alignment is normal. There is loss of disc height C3-4 C5-6 C6-7. Vertebral body heights are preserved. No spinal canal stenosis is evident. Uncovertebral joint hypertrophy is present seen 3 4 bilaterally with mild foraminal narrowing and unc overtebral hypertrophy is present at C5-6 with severe bilateral foraminal stenosis. Some endplate spu rring in the left paracentral region is present. Spinal canal narrowing without stenosis may be prese nt posterior to the spur. Central spurring is present C6-7. Borderline spinal canal stenosis is prese nt. Mild left foraminal stenosis is present. IMPRESSION: 1. No acute fractures within the cervical spine. 2. Spinal canal narrowing C6-7 due to posterior endplate spurring C5-6 due to posterior endplate spur ring. 3. Foraminal narrowing from uncovertebral joint hypertrophy discussed above.
--- NOTE | 2023-11-20 19:27 | CT ---
EXAMINATION TYPE: CT facial bones wo con DATE OF EXAM: 11/20/2023 COMPARISON: None HISTORY: fell off toilet and hit the floor CT DLP: combined 1411.4 mGycm CONTRAST: 0 mL of Isovue 300 The paranasal sinuses are examined in the axial plane at 2 mm thick sections. Reconstructed images i n the coronal plane were obtained. There is dental amalgam scatter artifact There is opacification through the nasal passages likely from blood. Left septal deviation is noted. Air-fluid levels are within the maxillary sinuses. The ethmoid air cells are clear. The sphenoid si nuses are clear. The frontal sinuses are clear. The septum is evaluated. There is septal deviation to the left. The ostiomeatal units are obstructed There may be a fracture of the maxillary spine. Fractures of the nasal bones with slight right deviat ion is present at the bridge of the nose. There is a fracture through the anterior bridge of the nasa l bones. Greater wings of the sphenoid are intact. Zygomatic arches are intact. Maxilla and mandible appear in tact. IMPRESSION: 1. Fractures of the nasal bones including the central bridge. 2. Maxillary spine fracture may be present. 3. Fluid levels within the maxillary sinuses. Opacification of the nasal passages likely from blood.
[2023-11-20 19:29] LABS: HGB 8.6 gm/dL (11.4-16.0); INR 1.1 (<1.2); Partial Thromboplastin Time 27.3 sec (22.0-30.0); Prothrombin Time 11.9 sec (10.0-12.5)
[2023-11-20] MEDS ORDERED: NALOXONE 0.4 MG/ML 1 ML VIAL IV PRN (21:08)
[2023-11-20] MEDS ORDERED: ONDANSETRON 4 MG/2 ML VIAL IVP PRN (21:08)
[2023-11-20] MEDS: SODIUM CHLORIDE 0.9% 1,000 ML IV SCH (21:27)
[2023-11-20 22:08] LABS: Glucose,Whole Blood 131 mg/dL (70-110)
[2023-11-20] MEDS ORDERED: DEXTROSE 50% SYRINGE 50 ML IVP PRN ×2 (22:56)
[2023-11-20] MEDS: MORPHINE SULFATE 4 MG/ML SYRINGE IV PRN (23:17)
[2023-11-20] MEDS: PANTOPRAZOLE 40 MG TABLET PO SCH (23:17)
[2023-11-20] MEDS: PREGABALIN 75 MG CAP PO SCH (23:17)
[2023-11-20] MEDS: ATORVASTATIN 20 MG TAB PO SCH (23:17)
--- NOTE | 2023-11-21 00:07 | XR ---
EXAM: XR Chest, 1 View CLINICAL HISTORY: ITS.REASON XR Reason: SOB TECHNIQUE: Frontal view of the chest. COMPARISON: Chest radiograph on 10/22/2023 FINDINGS: Hardware: None. Lungs/pleura: Opacity throughout right greater than left lungs. Heart/mediastinum: Enlargement of the cardiac silhouette. Atherosclerotic changes in the aorta Soft tissues: Unremarkable. Bones: No acute fracture. Upper abdomen: Normal. IMPRESSION: Opacity throughout right greater than left lungs may represent pulmonary edema versus infectious/inflammatory process.
[2023-11-21] MEDS: FUROSEMIDE 10 MG/ML 4 ML VIAL IV STA (00:25)
--- NOTE | 2023-11-21 03:34 | P.CNPUL ---
History of Present Illness Consult date: 11/21/23 Requesting physician: Forest Moore Reason for consult: dyspnea Chief complaint: Syncopal event History of present illness: Patient is a 68-year-old white female with past medical history significant for chronic/persistent atrial fibrillation status post cardioversion and more recent cardiac ablation, coronary artery disease with previous PCI/stent to the LAD, hypertension, hyperlipidemia, diabetes mellitus, obesity, obstructive sleep apnea. Patient has seen Dr. Pereira in the pulmonary office for her obstructive sleep apnea, but otherwise does not have any history of lung disease. She wears a CPAP at night with a pressure support of 8. Never tobacco smoker. Patient presented the emergency room yesterday evening, after a syncopal event on the toilet. She sustained a facial injury. Facial CT demonstrated fractures of the nasal bones including central bridge, and possible maxillary spine fracture. There are fluid levels within the maxillary sinus and opacification of the nasal passage, likely from blood. Also underwent CT of the brain and C-spine without contrast which did not show any acute cervical spine fractures. Incidental findings included spinal canal narrowing of C6-C7 due to posterior endplate and foraminal narrowing from vertebral joint hypertrophy. Of note, patient does have persistent chronic atrial fibrillation, which has been refractory to therapy. She did recently undergo a EP study with cardiac ablation on 10/31/2023. On arrival to the emergency room, she was noted to be bradycardic. This was a sinus bradycardia with a rate of 50 bpm, no obvious acute ischemic changes.. 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 Her diesel engine mechanic apprentice is Dr. Cabrales. She also takes beta-blockers outpatient, metoprolol 25 mg p.o. daily. We were consulted as the patient has become progressively more short of breath over the last month. she has noted an associated approximate 40 pound weight gain over the last 1 month. She also endorses increased lower extremity swelling and abdominal fullness. She has been experiencing orthopnea. She does also reportedly wake up in the middle night gasping for air. She can only tolerate her CPAP for approximately 4 hours per night. Denies any chest pain. Denies any heart palpitations. No previous syncopal events prior to this hos pitalization. No seizure history. Denies any infectious-like symptoms. Chest x-ray shows cardiomegaly, opacification throughout the right greater than the left which could represent infectious/inflammatory process, however, favors pulmonary edema. NT proBNP was elevated at 4330. Most recent echocardiogram done 10/22/2023 which was a limited study. Estimated LV ejection fraction was approximately 45 to 50%. CBC on arrival: WBC count 6, hemoglobin 8.6, hematocrit 28.6, platelets 166. Patient does suffer from chronic anemia, however, hemoglobin is lower than baseline. She does take Xarelto outpatient. Denies any xu blood loss in her stool or melena. Denies any nausea, vomiting, or hematemesis. Denies any vaginal bleeding. She does have history of lower GI bleeding. Most recent colonoscopy was on 09/06/2022 which demonstrated internal hemorrhoids and diverticulosis without diverticulitis. No obvious source of GI bleeding identified at that time. BMP on arrival unremarkable. LFTs not elevated. Troponin 0.018 and 0.02 respectively. She is currently resting in bed, on room air, she is slightly tachypneic. Speaks in 2- 3 word phrases. She does have swelling of her nose and periorbital ecchymosis. Likely will not be able to tolerate her full facemask CPAP. Currently hemodynamically stable. Review of Systems REVIEW OF SYSTEMS: CONSTITUTIONAL: Admits a 40 pound weight gain over the last month. EYES: Denies change in vision. EARS, NOSE, MOUTH, THROAT: Denies headaches, denies sore throat. CARDIOVASCULAR: See HPI RESPIRATORY: See HPI GASTROINTESTINAL: Denies change in appetite, abdominal pain, nausea and vomiting, or diarrhea GENITOURINARY: Denies hematuria, denies infections. MUSKULOSKELETAL: Denies pain, denies swelling. INTEGUMENTARY: Denies rash, denies eczema. NEUROLOGICAL: Denies recent memory loss, no recent seizure activity. PSYCHIATRIC: Denies anxiety, denies depression. HEMATOLOGIC/LYMPHATIC: Denies anemia, denies enlarged lymph node Past Medical History Past Medical History: Atrial Fibrillation, Coronary Artery Disease (CAD), Diabetes Mellitus, GERD/Reflux, GI Bleed, Hyperlipidemia, Hypertension, Osteoarthritis (OA) Additional Past Medical History / Comment(s): See Dr Cabrales's H&P. see dr garcia's H & P History of Any Multi-Drug Resistant Organisms: None Reported Past Surgical History: Appendectomy, Section, Cholecystectomy, Heart Catheterization With Stent, Hysterectomy, Joint Replacement, Orthopedic Surgery Additional Past Surgical History / Comment(s): Bilateral carpal tunnel, bilateral total knee replacements, colonoscopy, EGD. Past Anesthesia/Blood Transfusion Reactions: Previous Problems w/ Anesthesia Additional Past Anesthesia/Blood Transfusion Reaction / Comment(s): Had spinal fluid leak w/ prior spinal for knee surgery-stated was told not to have spinals. No problems with blood transfusion received 30-40 yrs ago. Date of Last Stent Placement:: 2022 Past Psychological History: No Psychological Hx Reported Smoking Status: Never smoker Past Alcohol Use History: None Reported Past Drug Use History: None Reported - Past Family History Mother Family Medical History: No Reported History Medications and Allergies Home Medications Medication Instructions Recorded Confirmed Type Omeprazole 20 mg PO HS 06/04/16 11/20/23 History Rivaroxaban [Xarelto] 20 mg PO W/SUPPER 06/04/16 11/20/23 History allopurinoL [Zyloprim] 300 mg PO DAILY 06/04/16 11/20/23 History metFORMIN HCL [Glucophage] 1,000 mg PO BID 04/29/20 11/20/23 History Cholecalciferol [Vitamin D3 (25 25 mcg PO DAILY 09/03/22 11/20/23 History Mcg = 1000 Iu)] Insulin Glargine,Hum.rec.anlog 20 - 40 unit SQ HS 09/03/22 11/20/23 History [Lantus Solostar Pen] oxyBUTYnin chloride [Ditropan] 5 mg PO DAILY 09/03/22 11/20/23 History Pregabalin [Lyrica] 150 mg PO TID 11/17/22 11/20/23 History Nitroglycerin Sl Tabs [Nitrostat] 0.4 mg SUBLINGUAL Q5M PRN #50 tab 03/09/23 11/20/23 Rx Cetirizine HCl [Zyrtec] 10 mg PO DAILY 04/11/23 11/20/23 History Empagliflozin [Jardiance] 10 mg PO DAILY 04/11/23 11/20/23 History Ferrous Sulfate [Iron (65 MG 325 mg PO DAILY 04/11/23 11/20/23 History Elemental)] Atorvastatin [Lipitor] 20 mg PO HS 10/22/23 11/20/23 History HYDROcodone/APAP 10-325MG [[place] 1 tab PO Q6HR PRN 10/22/23 11/20/23 History 10-325] Insulin Aspart [NovoLOG Flexpen] See Protocol SQ PC-TID 10/22/23 11/20/23 History Aspirin 81 mg PO DAILY 30 Days #30 tab 10/26/23 11/20/23 Rx Levothyroxine Sodium [Synthroid] 50 mcg PO DAILY@0630 30 Days #30 10/26/23 11/20/23 Rx tab Tamsulosin [Flomax] 0.4 mg PO PC-BRKFST 30 Days #30 cap 10/26/23 11/20/23 Rx Furosemide [Lasix] 40 mg PO DAILY 11/20/23 11/20/23 History Losartan-Hctz 50-12.5 mg [Hyzaar 1 tab PO DAILY 11/20/23 11/20/23 History 50-12.5] Metoprolol Succinate [Metoprolol 25 mg PO DAILY 11/20/23 11/20/23 History Succinate ER] Spironolactone [Aldactone] 25 mg PO DAILY 11/20/23 11/20/23 History Allergies Allergy/AdvReac Type Severity Reaction Status Date / Time No Known Allergies Allergy Verified 11/20/23 20:05 Physical Exam Vitals: Vital Signs Temp Pulse Pulse Resp BP BP Pulse Ox 11/21/23 00:30 22 11/20/23 23:25 97.4 F L 60 16 169/75 90 L 11/20/23 21:45 52 L 24 171/70 93 L 11/20/23 20:44 61 18 183/72 92 L 11/20/23 17:52 98.1 F 49 L 18 131/76 93 L Intake and Output 11/20/23 11/20/23 11/21/23 14:59 22:59 06:59 Other: Voiding Method External Catheter Weight 121.563 kg GENERAL EXAM: Alert, 68-year-old morbidly obese white female, resting in bed, in no apparent distress. She has significant nasal/maxillary swelling and periorbital ecchymosis HEAD: Normocephalic, facial trauma appreciated and mentioned above EYES: Normal reaction of pupils, equal size. NOSE: Clear with pink turbinates. THROAT: No erythema or exudates. NECK: No masses, no JVD. CHEST: No chest wall deformity. LUNGS: Equal air entry with bibasilar inspiratory crackles. On room air. Tachypneic. Speaks in 2-3 word phrases. CVS: S1 and S2 normal with no audible murmur, regular rhythm. No extra heart s ounds ABDOMEN: No hepatosplenomegaly, active bowel sounds, no guarding or rigidity. SPINE: No scoliosis or deformity SKIN: No rashes CENTRAL NERVOUS SYSTEM: No focal deficits, tone is normal in all 4 extremities. EXTREMITIES: There is 2+ bilateral lower extremity edema. No clubbing, or cyanosis. Peripheral pulses are intact. Results - Laboratory Findings CBC and BMP: 11/20/23 18:51 11/20/23 18:51 PT/INR, D-dimer PT 11.9 sec (10.0-12.5) 11/20/23 18:51 INR 1.1 (<1.2) 11/20/23 18:51 Abnormal lab findings: Abnormal Labs 11/20/23 11/20/23 11/20/23 18:51 18:51 22:07 RBC 3.24 L Hgb 8.6 L D Hct 28.6 L MCHC 30.1 L RDW 18.5 H Lymphocytes # 0.9 L Chloride 112 H BUN 28 H Glucose 131 H POC Glucose (mg/dL) 131 H - Diagnostic Findings Chest x-ray: image reviewed Assessment and Plan Assessment: Acute dyspnea, secondary to suspected acute diastolic CHF exacerbation, Chest x- ray shows cardiomegaly, opacification throughout the right greater than the left, which could represent infectious/inflammatory process, however, favors pulmonary edema. NT proBNP was elevated at 4330. Most recent echocardiogram done 10/22/2023, which was a limited study, estimated LV ejection fraction was approximately 45 to 50%. Reported 40 pound weight gain over the last month History of persistent/chronic atrial fibrillation status/post cardiac ablation, performed on 10/31/2023 Sinus bradycardia Syncopal event, rule out cardiac syncope or possible vasovagal. Facial trauma secondary to above, facial CT demonstrated fractures of the nasal bones including central bridge and possible maxillary spine fracture. There are fluid levels within the maxillary sinuses and opacification of the nasal passage, likely from blood. Normocytic normochromic anemia, no overt acute blood loss noted Coronary artery disease, with previous history of PCI/stenting to the LAD History of hypertension History of hyperlipidemia History of diabetes mellitus Morbid obesity with a BMI of 43.3 kg/m History of moderate obstructive sleep apnea, normally maintained on CPAP at home with a pressure support of 8, will not be able to tolerate full facemask currently with nasal fractures Never tobacco smoker Plan: Patient's medications, labs, chest x-ray reviewed Chest x-ray findings more consistent with pulmonary edema. NT proBNP was elevated at 4300. Patient was given a dose of Lasix 40 mg once now, and started on Lasix 40 mg twice daily. Procalcitonin level is pending. Cardiology consult was placed Place the patient on vehicle monitor technician. Patient would not be able to tolerate full facemask CPAP due to facial trauma Will continue to follow I have personally seen and examined the patient, performed the documentation and the assessment and plan as written. Number of minutes spent on the visit:20 Time with Patient: Greater than 30
[2023-11-21 06:14] LABS: Glucose,Whole Blood 176 mg/dL (70-110)
[2023-11-21] MEDS: INSULIN ASPART (NovoLOG) 100 UNIT/ML VIAL SQ SCH (06:30)
[2023-11-21] MEDS: LEVOTHYROXINE 50 MCG TAB PO SCH (06:30)
[2023-11-21 06:37] LABS: Anisocytosis Slight; Basophils % (A) 0 %; Eosinophils # (A) 0.1 k/uL (0-0.7); Eosinophils % (A) 1 %; HCT 30.8 % (34.0-46.0); HGB 8.9 gm/dL (11.4-16.0); Hypochromasia Marked; Lymphocytes # (A) 0.7 k/uL (1.0-4.8); Lymphocytes % (A) 12 %; MCH 25.9 pg (25.0-35.0); MCHC 28.9 g/dL (31.0-37.0); MCV 89.6 fL (80.0-100.0); Mean Platelet Volume 9.9; Monocytes # (A) 0.4 k/uL (0-1.0); Monocytes % (A) 6 %; Neutrophils % (A) 80 %; Platelet Count 155 k/uL (150-450); RBC 3.44 m/uL (3.80-5.40); RDW 18.4 % (11.5-15.5); WBC 6.3 k/uL (3.8-10.6)
[2023-11-21 06:50] LABS: ALT 12 U/L (4-34); AST 23 U/L (14-36); African American GFR (CKD) 73 (>60 ml/min/1.73 sqM); Alkaline Phosphatase 73 U/L (38-126); Anion Gap 7 mmol/L; Blood Urea Nitrogen 28 mg/dL (7-17); Calcium 9.7 mg/dL (8.4-10.2); Carbon Dioxide 24 mmol/L (22-30); Chloride 108 mmol/L (98-107); Glucose 147 mg/dL (74-99); Magnesium 1.7 mg/dL (1.6-2.3); Non-African American GFR(CKD) 64 (>60 ml/min/1.73 sqM); Phosphorus 3.6 mg/dL (2.5-4.5); Potassium 5.1 mmol/L (3.5-5.1); Sodium 139 mmol/L (137-145); Total Bilirubin 1.1 mg/dL (0.2-1.3); Total Protein 6.7 g/dL (6.3-8.2)
[2023-11-21] MEDS: LOSARTAN-HCTZ 50-12.5 MG 1 EACH TAB PO SCH (07:56)
[2023-11-21] MEDS: SPIRONOLACTONE 25 MG TAB PO SCH (07:56)
[2023-11-21] MEDS: allopurinoL 300 MG TAB PO SCH (07:56)
[2023-11-21] MEDS: FUROSEMIDE 40 MG TAB PO SCH (07:56)
[2023-11-21] MEDS: LORATADINE 10 MG TAB PO SCH (07:56)
[2023-11-21] MEDS: TAMSULOSIN 0.4 MG CAP.ER.24H PO SCH (07:56)
[2023-11-21] MEDS ORDERED: METOPROLOL SUCCINATE (ER) 25 MG TAB.ER.24H PO SCH (09:00)
[2023-11-21] MEDS ORDERED: PANTOPRAZOLE 40 MG/10 ML VIAL IV SCH (09:00)
[2023-11-21] MEDS ORDERED: FUROSEMIDE 40 MG TAB PO SCH (09:00)
[2023-11-21] MEDS: FUROSEMIDE 10 MG/ML 4 ML VIAL IV SCH (09:35)
[2023-11-21 10:57] LABS: T4, Free (Free Thyroxine) 1.09 ng/dL (0.78-2.19)
[2023-11-21 11:27] LABS: Glucose,Whole Blood 138 mg/dL (70-110)
--- NOTE | 2023-11-21 13:20 | P.CONS ---
History of Present Illness - Reason for Consult Consult date: 11/21/23 Anemia Requesting physician: Delvin Burns - Chief Complaint Weakness, syncope and fall - History of Present Illness This is a pleasant 68-year-old female who was brought into the emergency department after she had passed out while she was going to the bathroom. Luke shanks had fallen and hit her face on the floor. She states that she did not feel dizzy fall she remembers was waking up on the bathroom floor. She has a past medical history of atrial fibrillation on Xarelto and underwent recent cardiac ablation on 10/31/2023, coronary artery disease status post stenting, type 2 diabetes mellitus, sleep apnea, hypertension and cardiomyopathy. She states that she has been feeling weak and short of breath. She was noted to be anemic on admission with a hemoglobin of 8.6. She states she has a history of chronic anemia and takes iron pills for the last 1 to 2 years. She is on Xarelto for her atrial fibrillation states she has been on it for years. Last taken on 11/19/23. She denies any blood in her stool or black stool. No nausea or vomiting. She has had recent upper endoscopy with Dr. Guillory in October 2022 for GERD with reported findings of antral gastritis. Patient also had colonoscopy in August [address] Guillory with findings of internal and external hemorrhoids, diverticulosis and reported poor bowel prep and not a good look at the right side of the colon. She does report some abdominal pain since the fall she also thinks is related to her swelling. She was off of her diuretics for a couple weeks and is having increased edema in her abdomen and lower extremities. Today's labs WBC 6.3 hemoglobin 8.9 hematocrit 30 platelet count 155,000 INR 1.1 sodium 139 potassium 5.1 BUN 28 creatinine 0.9 total bilirubin 1.1 AST 23 ALT 12 alkaline phosphatase 73 TSH 8.160 Review of Systems REVIEW OF SYSTEMS: CARDIOPULMONARY: No chest pain, positive shortness of breath. Gastrointestinal: Abdominal pain. No nausea or vomiting. No hematemesis, coffee-ground emesis. No rectal bleeding, or melena. GENITOURINARY: No dysuria or hematuria. MUSCULOSKELETAL: Reports normal range of motion., Joint pain. SKIN: No rashes. No jaundice. ENDOCRINE: No chills, fevers. No excessive weight gain or loss. No polydipsia or polyuria. PSYCHIATRIC: Unremarkable. NEUROLOGY: No change in mental status. Denies dizziness, headache. Patient had syncopal episode and collapse following and hitting her nose. Patient currently has 2 black eyes. ENT: Vision unremarkable. CONSTITUTIONAL: No recent weight loss. No fever, chills, night sweats. Past Medical History Past Medical History: Atrial Fibrillation, Coronary Artery Disease (CAD), Diabetes Mellitus, GERD/Reflux, GI Bleed, Hyperlipidemia, Hypertension, Osteoarthritis (OA) Additional Past Medical History / Comment(s): See Dr Cabrales's H&P. see dr garcia's H & P History of Any Multi-Drug Resistant Organisms: None Reported Past Surgical History: Appendectomy, Section, Cholecystectomy, Heart Catheterization With Stent, Hysterectomy, Joint Replacement, Orthopedic Surgery Additional Past Surgical History / Comment(s): Bilateral carpal tunnel, bilateral total knee replacements, colonoscopy, EGD. Past Anesthesia/Blood Transfusion Reactions: Previous Problems w/ Anesthesia Additional Past Anesthesia/Blood Transfusion Reaction / Comm: Had spinal fluid leak w/ prior spinal for knee surgery-stated was told not to have spinals. No problems with blood transfusion received 30-40 yrs ago. Date of Last Stent Placement:: 2022 Past Psychological History: No Psychological Hx Reported Smoking Status: Never smoker Past Alcohol Use History: None Reported Past Drug Use History: None Reported - Past Family History Mother Family Medical History: No Reported History Medications and Allergies Home Medications Medication Instructions Recorded Confirmed Type Omeprazole 20 mg PO HS 06/04/16 11/20/23 History Rivaroxaban [Xarelto] 20 mg PO W/SUPPER 06/04/16 11/20/23 History allopurinoL [Zyloprim] 300 mg PO DAILY 06/04/16 11/20/23 History metFORMIN HCL [Glucophage] 1,000 mg PO BID 04/29/20 11/20/23 History Cholecalciferol [Vitamin D3 (25 25 mcg PO DAILY 09/03/22 11/20/23 History Mcg = 1000 Iu)] Insulin Glargine,Hum.rec.anlog 20 - 40 unit SQ HS 09/03/22 11/20/23 History [Lantus Solostar Pen] oxyBUTYnin chloride [Ditropan] 5 mg PO DAILY 09/03/22 11/20/23 History Pregabalin [Lyrica] 150 mg PO TID 11/17/22 11/20/23 History Nitroglycerin Sl Tabs [Nitrostat] 0.4 mg SUBLINGUAL Q5M PRN #50 tab 03/09/23 11/20/23 Rx Cetirizine HCl [Zyrtec] 10 mg PO DAILY 04/11/23 11/20/23 History Empagliflozin [Jardiance] 10 mg PO DAILY 04/11/23 11/20/23 History Ferrous Sulfate [Iron (65 MG 325 mg PO DAILY 04/11/23 11/20/23 History Elemental)] Atorvastatin [Lipitor] 20 mg PO HS 10/22/23 11/20/23 History HYDROcodone/APAP 10-325MG [[place] 1 tab PO Q6HR PRN 10/22/23 11/20/23 History 10-325] Insulin Aspart [NovoLOG Flexpen] See Protocol SQ PC-TID 10/22/23 11/20/23 History Aspirin 81 mg PO DAILY 30 Days #30 tab 10/26/23 11/20/23 Rx Levothyroxine Sodium [Synthroid] 50 mcg PO DAILY@0630 30 Days #30 10/26/23 11/20/23 Rx tab Tamsulosin [Flomax] 0.4 mg PO PC-BRKFST 30 Days #30 cap 10/26/23 11/20/23 Rx Furosemide [Lasix] 40 mg PO DAILY 11/20/23 11/20/23 History Losartan-Hctz 50-12.5 mg [Hyzaar 1 tab PO DAILY 11/20/23 11/20/23 History 50-12.5] Metoprolol Succinate [Metoprolol 25 mg PO DAILY 11/20/23 11/20/23 History Succinate ER] Spironolactone [Aldactone] 25 mg PO DAILY 11/20/23 11/20/23 History Allergies Allergy/AdvReac Type Severity Reaction Status Date / Time No Known Allergies Allergy Verified 11/20/23 20:05 Physical Exam Vitals: Vital Signs Temp Pulse Pulse Resp BP BP Pulse Ox 11/21/23 08:42 45 L 16 11/21/23 07:00 97.4 F L 44 L 16 171/68 94 L 11/21/23 02:56 98.7 F 47 L 16 169/71 97 11/21/23 00:30 22 05/29/24 23:25 97.4 F L 60 16 169/75 90 L 11/20/23 21:45 52 L 24 171/70 93 L 11/20/23 20:44 61 18 183/72 92 L 11/20/23 17:52 98.1 F 49 L 18 131/76 93 L Intake and Output 11/20/23 11/21/23 11/21/23 22:59 06:59 14:59 Output Total 1100 Balance -1100 Output: Urine 1100 Other: Voiding Method External Catheter Weight 121.563 kg General appearance: The patient is alert, oriented, appears in no acute distress. HET: Head is normocephalic, nose and both eyes with ecchymosis. Conjunctiva pink. Sclera anicteric. Neck: Supple without lymphadenopathy. Trachea midline. Heart: Regular. Lungs: Equal expansion, normal respiratory effort. Abdomen: Soft, diffuse tenderness to palpation, nondistended. Skin: No rashes. No jaundice. Extremities: Normal skin color and turgor. Bilateral lower extremity pitting edema. Neurological: No focal deficits. Alert and oriented x3. Results CBC & Chem 7: 11/21/23 06:07 11/21/23 06:07 Labs: Abnormal Lab Results - Last 24 Hours (Table) 11/20/23 11/20/23 11/20/23 Range/Units 18:51 18:51 22:07 RBC 3.24 L (3.80-5.40) m/uL Hgb 8.6 L D (11.4-16.0) gm/dL Hct 28.6 L (34.0-46.0) % MCHC 30.1 L (31.0-37.0) g/dL RDW 18.5 H (11.5-15.5) % Lymphocytes # 0.9 L (1.0-4.8) k/uL Chloride 112 H (98-107) mmol/L BUN 28 H (7-17) mg/dL Glucose 131 H (74-99) mg/dL POC Glucose (mg/dL) 131 H (70-110) mg/dL Hemoglobin A1c (<=6.0) % 11/21/23 11/21/23 11/21/23 Range/Units 06:07 06:07 06:07 RBC 3.44 L (3.80-5.40) m/uL Hgb 8.9 L (11.4-16.0) gm/dL Hct 30.8 L (34.0-46.0) % MCHC 28.9 L (31.0-37.0) g/dL RDW 18.4 H (11.5-15.5) % Lymphocytes # 0.7 L (1.0-4.8) k/uL Chloride 108 H (98-107) mmol/L BUN 28 H (7-17) mg/dL Glucose 147 H (74-99) mg/dL POC Glucose (mg/dL) (70-110) mg/dL Hemoglobin A1c 6.6 H (<=6.0) % 11/21/23 Range/Units 06:13 RBC (3.80-5.40) m/uL Hgb (11.4-16.0) gm/dL Hct (34.0-46.0) % MCHC (31.0-37.0) g/dL RDW (11.5-15.5) % Lymphocytes # (1.0-4.8) k/uL Chloride (98-107) mmol/L BUN (7-17) mg/dL Glucose (74-99) mg/dL POC Glucose (mg/dL) 176 H (70-110) mg/dL Hemoglobin A1c (<=6.0) % Comments: Face CT reports fractures of the nasal bones including the central bridge. Maxillary spine fracture may be present. Fluid levels within the maxillary sinuses. I will place indication of nasal passages likely from blood. Head/spine CT reports no acute intracranial process of head. No acute fractures within the cervical spine. Spinal canal narrowing C6-7 due to posterior endplate spurring C5-6 due to posterior endplate spurring. Foraminal narrowing from uncommon vertebral joint hypertrophy discussed above Chest x-ray reports opacity throughout right greater than left lungs may represent pulmonary edema versus infectious/inflammatory process Assessment and Plan (1) Anemia Narrative/Plan: 68-year-old female with multiple comorbidities presenting after syncope and fall hitting her face with residual old blood noted all over her face and hands. She has 2 black eyes. She has a history of chronic anemia taking iron at home. Patient is on anticoagulation for atrial fibrillation last taken 528. No repo rted blood in her stool or black stool, recent upper and lower endoscopies within the last year. Patient with a normocytic normal chromic anemia with multiple comorbidities. Possible etiology anemia of chronic disease. Also need to consider acute on chronic anemia secondary to blood loss from fractured nose. Patient had old dried blood all over her hands chest and nose. Patient with no overt signs of GI bleed and recent upper and lower endoscopies therefore will defer at this time. Will can anemia profile. Continue to hold anticoagulation for now. Current Visit: Yes Status: Acute Code(s): D64.9 - ANEMIA, UNSPECIFIED SNOMED Code(s): 548450128 (2) Syncope and collapse Current Visit: Yes Status: Acute Code(s): R55 - SYNCOPE AND COLLAPSE SNOMED Code(s): 159257401 (3) Atrial fibrillation Current Visit: Yes Status: Acute Code(s): I48.91 - UNSPECIFIED ATRIAL FI BRILLATION SNOMED Code(s): 65403248 (4) Coronary artery disease Current Visit: Yes Status: Acute Code(s): I25.10 - ATHSCL HEART DISEASE OF [place] CORONARY ARTERY W/O ANG PCTRS SNOMED Code(s): 97813497 (5) Diabetes mellitus Current Visit: Yes Status: Acute Code(s): E11.9 - TYPE 2 DIABETES MELLITUS WITHOUT COMPLICATIONS SNOMED Code(s): 42053869 (6) Obesity Current Visit: Yes Status: Acute Code(s): E66.9 - OBESITY, UNSPECIFIED SNOMED Code(s): 996390668 (7) Nasal fracture Current Visit: Yes Status: Acute Code(s): S02.2XXA - FRACTURE OF NASAL BONES, INIT ENCNTR FOR CLOSED FRACTURE SNOMED Code(s): 529124693 Plan: 1. Continue symptomatic and supportive care 2. Continue to hold Xarelto for now 3. Daily CBC, transfuse for hemoglobin less than 7 4. Iron studies ordered 5. Protonix 40 mg daily for GI prophylaxis 6. No plans at this time for endoscopic evaluation, patient had recent EGD and colonoscopy within the past year. Thank you for this consultation, we will continue to follow. Dr. Chloe Bailon I agree with the dictator's note, documented as a scribe by Rebeca Rubio.
--- NOTE | 2023-11-21 15:51 | P.HPIM ---
History of Present Illness H&P Date: 11/21/23 Chief Complaint: Syncope, fall, shortness of breath Luz Swann is a 67 yo F with PMH significant for recent cardiac ablation, cardioversion, coronary artery disease with previous stenting, persistent atrial fibrillation, cardiomyopathy hypertension, hyperlipidemia, obesity, obstructive sleep apnea, diabetes, and cardiomyopathy, transported to the ER via EMS,status post syncope, sustaining a fall with facial injury. Patient stated she was sitting on commode, "catching her breath" before proceeding to stand up with her walker.denied lightheadedness or dizziness while sitting .Woke up on the floor with nose bleeding. cardiac ablation was on 10/31/2023, diuretics/Lasix resumed 2 weeks postprocedure per PCP. Patient reports progressive shortness of breath, gained 40 pounds in the last 3 to 4 weeks, increased lower extremity edema, decreased walking distances-only able to walk up to about 5 feet before sitting down to regain her breath. Nonproductive cough. positive orthopnea. Denies chest pain, palpitations. Troponins negative x 3. denies headache, denies blurred vision. Face CT reported fractures of the nasal bones including central bridge, possible maxillary spine fracture. Fluid levels within the maxillary sinus and opacification of the nasal passage, likely from blood. Head/cervical spine CT reported no acute fractures within the cervical spine.Spinal canal narrowing of C6-C7 due to posterior endplate spurring C5-6 and foraminal narrowing from unc onvertebral joint hypertrophy. Chest x-ray reported opacity throughout right greater than left lungs representing pulmonary edema, possible infectious/inflammatory process. Procalcitonin pending. Afebrile, normal WBC. Hemoglobin 8.6, 8.9, in a patient with baseline hemoglobin of 11.7-12 ,platelets 166, 155, on Xarelto. Denies blood in stools, denies dark stools. Denies abdominal pain. Received a dose of IV push Lasix followed by oral Lasix with reported improvement in her breathing. Conversing without shortness of breath. Maintaining O2 sats in the low 90s on room air. Review of Systems ROS Statement: Those systems with pertinent positive or pertinent negative responses have been documented in the HPI. ROS Other: All systems not noted in ROS Statement are negative. Past Medical History Past Medical History: Atrial Fibrillation, Coronary Artery Disease (CAD), Diabetes Mellitus, GERD/Reflux, GI Bleed, Hyperlipidemia, Hypertension, Osteoarthritis (OA) Additional Past Medical History / Comment(s): See Dr Cabrales's H&P. see dr garcia's H & P History of Any Multi-Drug Resistant Organisms: None Reported Past Surgical History: Appendectomy, Section, Cholecystectomy, Heart Catheterization With Stent, Hysterectomy, Joint Replacement, Orthopedic Surgery Additional Past Surgical History / Comment(s): Bilateral carpal tunnel, bilateral total knee replacements, colonoscopy, EGD. Past Anesthesia/Blood Transfusion Reactions: Previous Problems w/ Anesthesia Additional Past Anesthesia/Blood Transfusion Reaction / Comment(s): Had spinal fluid leak w/ prior spinal for knee surgery-stated was told not to have spinals. No problems with blood transfusion received 30-40 yrs ago. Date of Last Stent Placement:: 2022 Past Psychological History: No Psychological Hx Reported Smoking Status: Never smoker Past Alcohol Use History: None Reported Past Drug Use History: None Reported - Past Family History Mother Family Medical History: No Reported History Medications and Allergies Home Medications Medication Instructions Recorded Confirmed Type Omeprazole 20 mg PO HS 06/04/16 11/20/23 History Rivaroxaban [Xarelto] 20 mg PO W/SUPPER 06/04/16 11/20/23 History allopurinoL [Zyloprim] 300 mg PO DAILY 06/04/16 11/20/23 History metFORMIN HCL [Glucophage] 1,000 mg PO BID 04/29/20 11/20/23 History Cholecalciferol [Vitamin D3 (25 25 mcg PO DAILY 09/03/22 11/20/23 History Mcg = 1000 Iu)] Insulin Glargine,Hum.rec.anlog 20 - 40 unit SQ HS 09/03/22 11/20/23 History [Lantus Solostar Pen] oxyBUTYnin chloride [Ditropan] 5 mg PO DAILY 09/03/22 11/20/23 History Pregabalin [Lyrica] 150 mg PO TID 11/17/22 11/20/23 History Nitroglycerin Sl Tabs [Nitrostat] 0.4 mg SUBLINGUAL Q5M PRN #50 tab 03/09/23 11/20/23 Rx Cetirizine HCl [Zyrtec] 10 mg PO DAILY 04/11/23 11/20/23 History Empagliflozin [Jardiance] 10 mg PO DAILY 04/11/23 11/20/23 History Ferrous Sulfate [Iron (65 MG 325 mg PO DAILY 04/11/23 11/20/23 History Elemental)] Atorvastatin [Lipitor] 20 mg PO HS 10/22/23 11/20/23 History HYDROcodone/APAP 10-325MG [[place] 1 tab PO Q6HR PRN 10/22/23 11/20/23 History 10-325] Insulin Aspart [NovoLOG Flexpen] See Protocol SQ PC-TID 10/22/23 11/20/23 History Aspirin 81 mg PO DAILY 30 Days #30 tab 10/26/23 11/20/23 Rx Levothyroxine Sodium [Synthroid] 50 mcg PO DAILY@30 30 Days #30 10/26/23 11/20/23 Rx tab Tamsulosin [Flomax] 0.4 mg PO PC-BRKFST 30 Days #30 cap 10/26/23 11/20/23 Rx Furosemide [Lasix] 40 mg PO DAILY 11/20/23 11/20/23 History Losartan-Hctz 50-12.5 mg [Hyzaar 1 tab PO DAILY 11/20/23 11/20/23 History 50-12.5] Metoprolol Succinate [Metoprolol 25 mg PO DAILY 11/20/23 11/20/23 History Succinate ER] Spironolactone [Aldactone] 25 mg PO DAILY 11/20/23 11/20/23 History Allergies Allergy/AdvReac Type Severity Reaction Status Date / Time No Known Allergies Allergy Verified 11/20/23 20:05 Physical Exam Vitals: Vital Signs Temp Pulse Pulse Resp BP BP Pulse Ox 11/21/23 07:00 97.4 F L 44 L 16 171/68 94 L 11/21/23 02:56 98.7 F 47 L 16 169/71 97 11/21/23 00:30 22 11/20/23 23:25 97.4 F L 60 16 169/75 90 L 11/20/23 21:45 52 L 24 171/70 93 L 11/20/23 20:44 61 18 183/72 92 L 11/20/23 17:52 98.1 F 49 L 18 131/76 93 L Intake and Output 11/20/23 11/21/23 11/21/23 22:59 06:59 14:59 Output Total 1100 Balance -1100 Output: Urine 1100 Other: Voiding Method External Catheter Weight 121.563 kg Gen: well developed, well nourished, obese, NAD HEENT: NC, tender bilateral periorbital and nose ecchymosis, conjunctiva pink, sclera anicteric mmm Neck: supple, no JVD or thyromegaly. Trachea midline CV: bradycardic, no murmur, 2+ pitting edema of bilateral lower extremities Lungs: Unlabored, equal air entry , expiratory wheezing Abd: soft, non distended, diffuse tenderness, positive bowel sounds Neuro: AAOx3, no focal deficit. Cranial nerves II through XII grossly intact. Skin: warm and dry Results CBC & Chem 7: 11/21/23 06:07 11/21/23 06:07 Labs: Abnormal Lab Results - Last 24 Hours (Table) 11/20/23 11/20/23 11/20/23 Range/Units 18:51 18:51 22:07 RBC 3.24 L (3.80-5.40) m/uL Hgb 8.6 L D (11.4-16.0) gm/dL Hct 28.6 L (34.0-46.0) % MCHC 30.1 L (31.0-37.0) g/dL RDW 18.5 H (11.5-15.5) % Lymphocytes # 0.9 L (1.0-4.8) k/uL Chloride 112 H (98-107) mmol/L BUN 28 H (7-17) mg/dL Glucose 131 H (74-99) mg/dL POC Glucose (mg/dL) 131 H (70-110) mg/dL Hemoglobin A1c (<=6.0) % 11/21/23 11/21/23 11/21/23 Range/Units 06:07 06:07 06:07 RBC 3.44 L (3.80-5.40) m/uL Hgb 8.9 L (11.4-16.0) gm/dL Hct 30.8 L (34.0-46.0) % MCHC 28.9 L (31.0-37.0) g/dL RDW 18.4 H (11.5-15.5) % Lymphocytes # 0.7 L (1.0-4.8) k/uL Chloride 108 H (98-107) mmol/L BUN 28 H (7-17) mg/dL Glucose 147 H (74-99) mg/dL POC Glucose (mg/dL) (70-110) mg/dL Hemoglobin A1c 6.6 H (<=6.0) % 11/21/23 Range/Units 06:13 RBC (3.80-5.40) m/uL Hgb (11.4-16.0) gm/dL Hct (34.0-46.0) % MCHC (31.0-37.0) g/dL RDW (11.5-15.5) % Lymphocytes # (1.0-4.8) k/uL Chloride (98-107) mmol/L BUN (7-17) mg/dL Glucose (74-99) mg/dL POC Glucose (mg/dL) 176 H (70-110) mg/dL Hemoglobin A1c (<=6.0) % Thrombosis Risk Factor Assmnt - Choose All That Apply Any of the Below Risk Factors Present?: Yes Each Factor Represents 1 point: Obesity (BMI >25) Other Risk Factors: Yes Each Risk Factor Represents 2 Points: Age 61-74 years Other congenital or acquired thrombophilia - If yes, enter type in comment: No Thrombosis Risk Factor Assessment Total Risk Factor Score: 3 Thrombosis Risk Factor Assessment Level: Moderate Risk Assessment and Plan Assessment: Progressive dyspnea secondary to acute CHF exacerbation, systolic dysfunction, EF 45-50%, proBNP 4330, weight gain of 40 pounds over 3 to 4 weeks. Procalcitonin pending. Syncope with subsequent fall Nasal fracture secondary to the above Acute anemia in a patient with history of chronic anemia, secondary to traumatic fall. Sinus bradycardia Chronic persistent atrial fibrillation Recent cardiac ablation 10/31/2023 CAD, history of stenting to the LAD Hypertension Hyperlipidemia History of cardiomyopathy, EF 45% Diabetes mellitus II Morbid obesity, BMI 43 Obstructive sleep apnea, uses CPAP, currently unable to wear mask secondary to nasal fracture Gait dysfunction, uses walker Plan: Continue on current medication regimen ,monitoring and symptomatic treatment. Telemetry. Diurese with Lasix IV push every 12 hours. cardi[address] consult in place, recommendations pending. Anticoagulation on hold, GI on consult. PPI for GI prophylaxis. Close monitoring of CBC with repeat labs ordered for a.m. The impression and plan of care has been dictated as directed. : I performed a history and examination of this patient, discussed the same with the dictator. I agree with the dictator's note ,documented as a scribe. Any additional findings or plans will be noted.
[2023-11-21 16:11] LABS: % Iron Saturation 9.97 (12.00-45.00); Ferritin 72.2 ng/mL (10.0-291.0)
[2023-11-21] MEDS: RIVAROXABAN 20 MG TAB PO SCH (18:05)
[2023-11-21 20:29] LABS: Glucose,Whole Blood 184 mg/dL (70-110)
[2023-11-22 06:18] LABS: Glucose,Whole Blood 169 mg/dL (70-110)
[2023-11-22] MEDS: LEVOTHYROXINE 75 MCG TAB PO SCH (06:32)
[2023-11-22 08:53] LABS: Anisocytosis Slight; Basophils % (A) 0 %; Eosinophils # (A) 0.2 k/uL (0-0.7); Eosinophils % (A) 4 %; HCT 31.4 % (34.0-46.0); HGB 9.1 gm/dL (11.4-16.0); Hypochromasia Marked; Lymphocytes # (A) 0.7 k/uL (1.0-4.8); Lymphocytes % (A) 12 %; MCH 26.1 pg (25.0-35.0); Mean Platelet Volume 8.9; Monocytes # (A) 0.4 k/uL (0-1.0); Monocytes % (A) 8 %; Neutrophils # (A) 4.4 k/uL (1.3-7.7); Neutrophils % (A) 75 %; Platelet Count 156 k/uL (150-450); RBC 3.48 m/uL (3.80-5.40); RDW 18.2 % (11.5-15.5); WBC 5.9 k/uL (3.8-10.6)
[2023-11-22 09:10] LABS: African American GFR (CKD) 57 (>60 ml/min/1.73 sqM); Anion Gap 4 mmol/L; Blood Urea Nitrogen 33 mg/dL (7-17); Calcium 9.8 mg/dL (8.4-10.2); Carbon Dioxide 26 mmol/L (22-30); Chloride 106 mmol/L (98-107); Glucose 199 mg/dL (74-99); Non-African American GFR(CKD) 49 (>60 ml/min/1.73 sqM); Potassium 4.7 mmol/L (3.5-5.1); Sodium 136 mmol/L (137-145)
[2023-11-22] MEDS: SODIUM FERRIC GLUCONAT-SUCROSE 125 MG in SODIUM CHLORIDE 0.9% 100 ML IVPB ONE (09:20)
[2023-11-22] MEDS: ACETAMINOPHEN IV (For NPO) 1,000 MG in EMPTY BAG 1 BAG IVPB STA (10:11)
--- NOTE | 2023-11-22 10:38 | P.PN ---
Subjective Progress Note Date: 11/22/23 H&P Date: 11/21/23 Chief Complaint: Syncope, fall, shortness of breath Luz Swann is a 67 yo F with PMH significant for recent cardiac ablation, cardioversion, coronary artery disease with previous stenting, persistent atrial fibrillation, cardiomyopathy hypertension, hyperlipidemia, obesity, obstructive sleep apnea, diabetes, and cardiomyopathy, transported to the ER via EMS,status post syncope, sustaining a fall with facial injury. Patient stated she was sitting on commode, "catching her breath" before proceeding to stand up with her walker.denied lightheadedness or dizziness while sitting .Woke up on the floor with nose bleeding. cardiac ablation was on 10/31/2023, diuretics/Lasix resumed 2 weeks postprocedure per PCP. Patient reports progressive shortness of breath, gained 40 pounds in the last 3 to 4 weeks, increased lower extremity edema, decreased walking distances-only able to walk up to about 5 feet before sitting down to regain her breath. Nonproductive cough. positive orthopnea. Denies chest pain, palpitations. Troponins negative x 3. denies headache, denies blurred vision. Face CT reported fractures of the nasal bones including central bridge, possible maxillary spine fracture. Fluid levels within the maxillary sinus and opacification of the nasal passage, likely from blood. Head/cervical spine CT reported no acute fractures within the cervical spine.Spinal canal narrowing of C6-C7 due to posterior endplate spurring C5-6 and foraminal narrowing from unconvertebral joint hypertrophy. Chest x-ray reported opacity throughout right greater than left lungs representing pulmonary edema, possible infectious/inflammatory process. Procalcitonin pending. Afebrile, normal WBC. Hemoglobin 8.6, 8.9, in a patient with baseline hemoglobin of 11.7-12 ,platelets 166, 155, on Xarelto. Denies blood in stools, denies dark stools. Denies abdominal pain. Received a dose of IV push Lasix followed by oral Lasix with reported improvement in her breathing. Conversing without shortness of breath. Maintaining O2 sats in the low 90s on room air. 11/22/2023 evaluated by GI with recommendations noted-no endoscopy recommended given recent EGD and colonoscopy. Lasix discontinued yesterday. Significant improvement in edema, 24-hour I&O inaccurate, no current weight. Renal function worsening, BUN 33, creatinine 1.14. Hyzaar discontinued, Cozaar ordered-as discussed with cardiology. Telemetry sinus bradycardia, heart rate currently in the 40s, telemetry reporting 30s when sleeping; patient scheduled for pacemaker placement on Saturday.Reports lightheadedness while sitting up in chair, denies headache-reports just "achy".complains of entire body feeling achy from her recent fall outpatient. Denies chest pain, palpitations or shortness of breath. Maintaining O2 sats in the low 90s on room air. Nonproductive cough, no wheezing today. Reports abdomen significantly less bloated. Afebrile, normal WBC, hemoglobin up to 9.1, platelets 156. Blood sugars controlled. Iron studies noted, iron deficient. IV ferritin ordered. TSH 8.16, free T4 1.09, levothyroxine increased. Objective - Vital Signs Vital signs: Vital Signs Temp 98.8 F 11/21/23 20:00 Pulse 48 L 11/22/23 08:59 Resp 18 11/22/23 08:59 BP 132/66 11/22/23 08:59 Pulse Ox 98 11/22/23 08:59 FiO2 Intake & Output 11/21/23 11/22/23 11/22/23 18:59 06:59 18:59 Output Total 2100 Balance -2100 Output: Urine 2100 Other: Voiding Method Toilet # Voids 1 1 # Bowel Movements 1 - Exam Gen: Alert and oriented x 3, sitting up in chair, obese, NAD HEENT: NC, tender bilateral periorbital and nose ecchymosis, conjunctiva pink, sclera anicteric mmm Neck: supple, no JVD or thyromegaly. Trachea midline CV: bradycardic, no murmur, no edema Lungs: Unlabored, equal air entry ,CTA. Abd: soft, non distended, nontender, positive bowel sounds Neuro: AAOx3, no focal deficit. Cranial nerves II through XII grossly intact. Skin: warm and dry - Labs CBC & Chem 7: 11/22/23 08:30 11/22/23 08:30 Labs: Abnormal Lab Results - Last 24 Hours (Table) 11/21/23 11/21/23 11/21/23 Range/Units 06:04 06:07 11:26 RBC (3.80-5.40) m/uL Hgb (11.4-16.0) gm/dL Hct (34.0-46.0) % MCHC (31.0-37.0) g/dL RDW (11.5-15.5) % Lymphocytes # (1.0-4.8) k/uL Sodium (137-145) mmol/L BUN (7-17) mg/dL Creatinine (0.52-1.04) mg/dL Glucose (74-99) mg/dL POC Glucose (mg/dL) 138 H (70-110) mg/dL Iron 37 L (50-170) UG/DL % Saturation 9.97 L (12.00-45.00) Vitamin B12 155.0 L (200.0-944.0) pg/mL TSH 8.160 H (0.465-4.680) mIU/L 11/21/23 11/22/23 11/22/23 Range/Units 20:28 06:17 08:30 RBC 3.48 L (3.80-5.40) m/uL Hgb 9.1 L (11.4-16.0) gm/dL Hct 31.4 L (34.0-46.0) % MCHC 29.0 L (31.0-37.0) g/dL RDW 18.2 H (11.5-15.5) % Lymphocytes # 0.7 L (1.0-4.8) k/uL Sodium (137-145) mmol/L BUN (7-17) mg/dL Creatinine (0.52-1.04) mg/dL Glucose (74-99) mg/dL POC Glucose (mg/dL) 184 H 169 H (70-110) mg/dL Iron (50-170) UG/DL % Saturation (12.00-45.00) Vitamin B12 (200.0-944.0) pg/mL TSH (0.465-4.680) mIU/L 11/22/23 Range/Units 08:30 RBC (3.80-5.40) m/uL Hgb (11.4-16.0) gm/dL Hct (34.0-46.0) % MCHC (31.0-37.0) g/dL RDW (11.5-15.5) % Lymphocytes # (1.0-4.8) k/uL Sodium 136 L (137-145) mmol/L BUN 33 H (7-17) mg/dL Creatinine 1.14 H (0.52-1.04) mg/dL Glucose 199 H (74-99) mg/dL POC Glucose (mg/dL) (70-110) mg/dL Iron (50-170) UG/DL % Saturation (12.00-45.00) Vitamin B12 (200.0-944.0) pg/mL TSH (0.465-4.680) mIU/L Assessment and Plan Assessment: Progressive dyspnea secondary to acute CHF exacerbation, systolic dysfunction, EF 45-50%, proBNP 4330, weight gain of 40 pounds over 3 to 4 weeks. P rocalcitonin normal, 0.09. Syncope with subsequent fall Nasal fracture secondary to the above Acute anemia in a patient with history of chronic anemia, secondary to traumatic fall, iron deficient. Sinus bradycardia, symptomatic, permanent pacemaker placement pending Acute renal insufficiency, multifactorial, secondary to all the above ,diuretics. Chronic persistent atrial fibrillation Recent cardiac ablation 10/31/2023 CAD, history of stenting to the LAD Hypertension Hyperlipidemia History of cardiomyopathy, EF 45% Diabetes mellitus II, hemoglobin A1c 6.6 Morbid obesity, BMI 43 Obstructive sleep apnea, uses CPAP, currently unable to wear mask secondary to nasal fracture Gait dysfunction, uses walker Plan: Continue on current medication regimen ,monitoring and symptomatic treatment. Antiarrhythmics, anticoagulation as per cardiology. renal function worsening,Hyzaar discontinued, Cozaar ordered-as discussed with cardiology; scheduled for permanent pacemaker on Saturday. Maintain PPI for GI prophylaxis. Receiving IV iron. GI recommending further follow-up outpatient with potential capsule study to complete the anemia workup. Close monitoring of renal function, CBC with repeat labs ordered for a.m. The impression and plan of care has been dictated as directed. : I performed a history and examination of this patient, discussed the same with the dictator. I agree with the dictator's note ,documented as a scribe. Any additional findings or plans will be noted.
[2023-11-22 11:30] LABS: Glucose,Whole Blood 177 mg/dL (70-110)
--- NOTE | 2023-11-22 12:18 | P.PN ---
Subjective Patient is resting comfortably in bed She remains bradycardic and a heart rate even in the wakeful state dips below 45-50 beats a minute in sinus rhythm despite stopping beta-blockers She has known underlying sick sinus syndrome She presented with an episode of syncope while sitting on the commode However she also has recurrent falls and dizzy spells which may be related to fluctuations in blood pressure On examination Blood pressure 132/66 mmHg sitting Heart sounds are normal regular Breath sounds are clear Bruising over both eyes Sodium 136, potassium 4.7 BUN 33 and creatinine 1.2 Anemia TSH 8.2 Impression Sick sinus syndrome with syncope and bradycardia despite stopping beta-blockers Atrial fibrillation status post ablation The dose of levothyroxine was increased to 75 mcg p.o. daily yesterday History of bradycardia and admission for this in September of this year Amiodarone was discontinued in September Plan Dual-chamber pacemaker with possibly conduction system pacing on Saturday Continue Xarelto Perioperative antibiotics ordered Follow permanent pacemaker order set, discussed with nurse Objective - Vital Signs Vital signs: Vital Signs Temp 98.8 F 11/21/23 20:00 Pulse 45 L 11/22/23 11:46 Resp 16 11/22/23 11:46 BP 170/70 11/22/23 11:46 Pulse Ox 100 11/22/23 11:46 FiO2 Intake & Output 11/21/23 11/22/23 11/22/23 18:59 06:59 18:59 Intake Total 240 Output Total 2100 Balance -2099 240 Intake: Oral 240 Output: Urine 2100 Other: Voiding Method Toilet # Voids 1 1 # Bowel Movements 1 - Labs CBC & Chem 7: 11/22/23 08:30 11/22/23 08:30 Labs: Abnormal Lab Results - Last 24 Hours (Table) 11/21/23 11/21/23 11/22/23 Range/Units 06:07 20:28 06:17 RBC (3.80-5.40) m/uL Hgb (11.4-16.0) gm/dL Hct (34.0-46.0) % MCHC (31.0-37.0) g/dL RDW (11.5-15.5) % Lymphocytes # (1.0-4.8) k/uL Sodium (137-145) mmol/L BUN (7-17) mg/dL Creatinine (0.52-1.04) mg/dL Glucose (74-99) mg/dL POC Glucose (mg/dL) 184 H 169 H (70-110) mg/dL Iron 37 L (50-170) UG/DL % Saturation 9.97 L (12.00-45.00) Vitamin B12 155.0 L (200.0-944.0) pg/mL 11/22/23 11/22/23 11/22/23 Range/Units 08:30 08:30 11:28 RBC 3.48 L (3.80-5.40) m/uL Hgb 9.1 L (11.4-16.0) gm/dL Hct 31.4 L (34.0-46.0) % MCHC 29.0 L (31.0-37.0) g/dL RDW 18.2 H (11.5-15.5) % Lymphocytes # 0.7 L (1.0-4.8) k/uL Sodium 136 L (137-145) mmol/L BUN 33 H (7-17) mg/dL Creatinine 1.14 H (0.52-1.04) mg/dL Glucose 199 H (74-99) mg/dL POC Glucose (mg/dL) 177 H (70-110) mg/dL Iron (50-170) UG/DL % Saturation (12.00-45.00) Vitamin B12 (200.0-944.0) pg/mL
[2023-11-22] MEDS: SODIUM CHLORIDE 0.9% 1,000 ML IV SCH ×2 (12:45→12:46)
--- NOTE | 2023-11-22 12:48 | P.PN ---
Subjective Progress Note Date: 11/22/23 Principal diagnosis: Anemia This is a pleasant 68-year-old female who was brought into the emergency department after she had passed out while she was going to the bathroom. Ness edward had fallen and hit her face on the floor. She states that she did not feel dizzy fall she remembers was waking up on the bathroom floor. She has a past medical history of atrial fibrillation on Xarelto and underwent recent cardiac ablation on 10/31/2023, coronary artery disease status post stenting, type 2 diabetes mellitus, sleep apnea, hypertension and cardiomyopathy. She states that she has been feeling weak and short of breath. She was noted to be anemic on admission with a hemoglobin of 8.6. She states she has a history of chronic anemia and takes iron pills for the last 1 to 2 years. She is on Xarelto for her atrial fibrillation states she has been on it for years. Last taken on 11/19/23. She denies any blood in her stool or black stool. No nausea or vomiting. She has had recent upper endoscopy with Dr. Guillory in October 2022 for GERD with reported findings of antral gastritis. Patient also had colonoscopy in August [address] Guillory with findings of internal and external hemorrhoids, diverticulosis and reported poor bowel prep and not a good look at the right side of the colon. She does report some abdominal pain since the fall she also thinks is related to her swelling. She was off of her diuretics for a couple weeks and is having increased edema in her abdomen and lower extremities. Today's labs WBC 6.3 hemoglobin 8.9 hematocrit 30 platelet count 155,000 INR 1.1 sodium 139 potassium 5.1 BUN 28 creatinine 0.9 total bilirubin 1.1 AST 23 ALT 12 alkaline phosphatase 73 TSH 8.160 11/22/2023 Patient seen and examined today as a follow-up. She is sitting up at the bedside eating her breakfast. States she is feeling much better today. She was moved to the cardiac stepdown unit for further cardiac monitoring. She has been bradycardic and is scheduled for dual-chamber pacemaker with possible conduction system pacing on Saturday. Xarelto was resumed by cardiology. Patient denies any abdominal pain, nausea or vomiting. She denies any rectal bleeding or blood in her stool. Iron studies were consistent with iron deficiency anemia. Hemoglobin stable at 9.1. Objective - Vital Signs Vital signs: Vital Signs Temp 98.8 F 11/21/23 20:00 Pulse 47 L 11/22/23 03:38 Resp 14 11/22/23 03:38 BP 133/57 11/22/23 03:38 Pulse Ox 93 L 11/22/23 03:38 FiO2 Intake & Output 11/21/23 11/22/23 11/22/23 18:59 06:59 18:59 Output Total 2100 Balance -2100 Output: Urine 2100 Other: Voiding Method Toilet # Voids 1 1 # Bowel Movements 1 - Exam General appearance: The patient is alert, oriented, appears in no acute distress. HET: Head is normocephalic. Ecchymosis around bilateral eyes. Conjunctiva pink. Sclera anicteric. Neck: Supple without lymphadenopathy. Abdomen: Soft, nontender, nondistended with bowel sounds. No guarding or rigidity. Extremities: Normal skin color and turgor. No pedal edema Skin: No rashes, no jaundice Neurological: No focal deficits. Alert and oriented. - Labs CBC & Chem 7: 11/22/23 08:30 11/22/23 08:30 Labs: Abnormal Lab Results - Last 24 Hours (Table) 11/21/23 11/21/23 11/21/23 Range/Units 06:04 06:07 06:07 POC Glucose (mg/dL) (70-110) mg/dL Hemoglobin A1c 6.6 H (<=6.0) % Iron 37 L (50-170) UG/DL % Saturation 9.97 L (12.00-45.00) Vitamin B12 155.0 L (200.0-944.0) pg/mL TSH 8.160 H (0.465-4.680) mIU/L 11/21/23 11/21/23 11/22/23 Range/Units 11:26 20:28 06:17 POC Glucose (mg/dL) 138 H 184 H 169 H (70-110) mg/dL Hemoglobin A1c (<=6.0) % Iron (50-170) UG/DL % Saturation (12.00-45.00) Vitamin B12 (200.0-944.0) pg/mL TSH (0.465-4.680) mIU/L Assessment and Plan (1) Anemia Narrative/Plan: 68-year-old female with multiple comorbidities presenting after syncope and fall hitting her face with residual old blood noted all over her face and hands. She has 2 black eyes. She has a history of chronic anemia taking iron at home. Patient is on anticoagulation for atrial fibrillation last taken 528. No repor pamella blood in her stool or black stool, recent upper and lower endoscopies within the last year. Patient with a normocytic normal chromic anemia with multiple comorbidities. Possible etiology anemia of chronic disease. Also need to consider acute on chronic anemia secondary to blood loss from fractured nose. Patient had old dried blood all over her hands chest and nose. Patient with no overt signs of GI bleed and recent upper and lower endoscopies therefore will defer at this time. Anemia profile ordered. Iron studies consistent with iron deficiency anemia. Could be secondary from acute blood loss from fractured nose and nosebleed. No signs of GI bleed. Recent endoscopic evaluation with both upper and lower endoscopy. Patient will be given IV iron infusion and recommend outpatient oral iron. She discussed with patient follow-up with gastroenterology can consider possible outpatient small bowel capsule endoscopy if needed.. Current Visit: Yes Status: Acute Code(s): D64.9 - ANEMIA, UNSPECIFIED SNOMED Code(s): 234541585 (2) Syncope and collapse Current Visit: Yes Status: Acute Code(s): R55 - SYNCOPE AND COLLAPSE SNOMED Code(s): 768528089 (3) Atrial fibrillation Current Visit: Yes Status: Acute Code(s): I48.91 - UNSPECIFIED ATRIAL FIBRILLATION SNOMED Code(s): 87960519 (4) Coronary artery disease Current Visit: Yes Status: Acute Code(s): I25.10 - ATHSCL HEART DISEASE OF [place] CORONARY ARTERY W/O ANG PCTRS SNOMED Code(s): 12668339 (5) Diabetes mellitus Current Visit: Yes Status: Acute Code(s): E11.9 - TYPE 2 DIABETES MELLITUS WITHOUT COMPLICATIONS SNOMED Code(s): 38838493 (6) Obesity Current Visit: Yes Status: Acute Code(s): E66.9 - OBESITY, UNSPECIFIED SNOMED Code(s): 661417930 (7) Nasal fracture Current Visit: Yes Status: Acute Code(s): S02.2XXA - FRACTURE OF NASAL BONES, INIT ENCNTR FOR CLOSED FRACTURE SNOMED Code(s): 573419038 Plan: 1. Continue symptomatic and supportive care 2. May resume Xarelto 3. Diet as tolerated 4. Iron studies ordered and reviewed 5. Protonix 40 mg daily for GI prophylaxis 6. Parental iron ordered x 1, then oral iron 325 mg twice daily 6. No plans at this time for endoscopic evaluation, patient had recent EGD and colonoscopy within the past year. Recommend outpatient follow-up with gastroenterology for anemia can consider possible small bowel capsule endoscopy if needed. Thank you for this consultation, patient is cleared from gastroenterology for discharge. We will sign off at this time. Dr. Chloe Bailon I agree with the dictator's note, documented as a scribe by Rebeca Rubio.
[2023-11-22] MEDS: MAGNESIUM SULFATE-D5W PMX 1 GM in DEXTROSE/WATER 1 100ML.BAG IVPB ONE (13:03)
--- NOTE | 2023-11-22 16:04 | P.PN ---
Subjective Progress Note Date: 11/22/23 Principal diagnosis: Syncopal event secondary to sick sinus syndrome Patient is a 68-year-old white female with past medical history significant for chronic/persistent atrial fibrillation status post cardioversion and more recent cardiac ablation, coronary artery disease with previous PCI/stent to the LAD, hypertension, hyperlipidemia, diabetes mellitus, obesity, obstructive sleep apnea. Patient has seen Dr. Pereira in the pulmonary office for her obstructive sleep apnea, but otherwise does not have any history of lung disease. She wears a CPAP at night with a pressure support of 8. Never tobacco smoker. Patient presented the emergency room yesterday evening, after a syncopal event on the toilet. She sustained a facial injury. Facial CT demonstrated fractures of the nasal bones including central bridge, and possible maxillary spine fracture. There are fluid levels within the maxillary sinus and opacification of the nasal passage, likely from blood. Also underwent CT of the brain and C-spine without contrast which did not show any acute cervical spine fractures. Incidental findings included spinal canal narrowing of C6-C7 due to posterior endplate and foraminal narrowing from vertebral joint hypertrophy. Of note, patient does have persistent chronic atrial fibrillation, which has been refractory to therapy. She did recently undergo a EP study with cardiac ablation on 10/31/2023. On arrival to the emergency room, she was noted to be bradycardic. This was a sinus bradycardia with a rate of 50 bpm, no obvious acute ischemic changes.. 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 Her nutrition services associate is Dr. Cabrales. She also takes beta-blockers outpatient, metoprolol 25 mg p.o. daily. We were consulted as the patient has become progressively more short of breath over the last month. she has noted an associated approximate 40 pound weight gain over the last 1 month. She also endorses increased lower extremity swelling and abdominal fullness. She has been experiencing orthopnea. She does also reportedly wake up in the middle night gasping for air. She can only tolerate her CPAP for approximately 4 hours per night. Denies any chest pain. Denies any heart palpitations. No previous syncopal events prior to this hospitalization. No seizure history. Denies any infectious-like symptoms. Chest x-ray shows cardiomegaly, opacification throughout the right greater than the left which could represent infectious/inflammatory process, however, favors pulmonary edema. NT proBNP was elevated at 4330. Most recent echocardiogram done 10/22/2023 which was a limited study. Estimated LV ejection fraction was approximately 45 to 50%. CBC on arrival: WBC count 6, hemoglobin 8.6, hematocrit 28.6, platelets 166. Patient does suffer from chronic anemia, ho wever, hemoglobin is lower than baseline. She does take Xarelto outpatient. Denies any xu blood loss in her stool or melena. Denies any nausea, vomiting, or hematemesis. Denies any vaginal bleeding. She does have history of lower GI bleeding. Most recent colonoscopy was on 09/06/2022 which demonstrated internal hemorrhoids and diverticulosis without diverticulitis. No obvious source of GI bleeding identified at that time. BMP on arrival unremarkable. LFTs not elevated. Troponin 0.018 and 0.02 respectively. She is currently resting in bed, on room air, she is slightly tachypneic. Speaks in 2- 3 word phrases. She does have swelling of her nose and periorbital ecchymosis. Likely will not be able to tolerate her full facemask CPAP. Currently hemodynamically stable. Patient was really today on 11/22/2023, patient was seen yesterday, and I transferred the patient to the cardiac floor, seen by cardiology and she seems to have a sick sinus syndrome. Patient is now scheduled to have a pacemaker implantation by Dr. Chin next week. In the meantime the patient is relatively asymptomatic, feeling better, her beta-blockers remain on hold. Patient remains bradycardic, and at times her rate is below 45.WBC count is 5.9 hemoglobin 9.1 basic metabolic profile is normal renal profile showed a BUN of 33 creatinine 1.14 Objective - Vital Signs Vital signs: Vital Signs Temp 98.8 F 11/21/23 20:00 Pulse 45 L 11/22/23 11:46 Resp 16 11/22/23 11:46 BP 170/70 11/22/23 11:46 Pulse Ox 100 11/22/23 11:46 FiO2 Intake & Output 11/21/23 11/22/23 11/22/23 18:59 06:59 18:59 Intake Total 558 Output Total 2100 Balance -2099 558 Intake: IV 100 Magnesium Sulfate-D5w Pmx 100 1 gm In Dextrose/Water 1 100ml.bag @ 100 mls/hr IVPB ONCE ONE Rx#: [id number] Intake, IV Titration 100 Amount Sodium Ferric Gluconat- 100 Sucrose 125 mg In Sodium Chloride 0.9% 100 ml @ 100 mls/hr IVPB ONCE ONE Rx#:[id number] Oral 358 Output: Urine 2100 Other: Voiding Method Toilet Toilet # Voids 1 1 # Bowel Movements 1 - Exam GENERAL EXAM: Reveals 68-year-old female in no distress, continues to have periorbital ecchymosis from recent fall/syncope HEAD: Normocephalic, facial trauma appreciated and mentioned above EYES: Normal reaction of pupils, equal size. NOSE: Clear with pink turbinates. THROAT: No erythema or exudates. NECK: No masses, no JVD. CHEST: No chest wall deformity. LUNGS: Equal air entry with bibasilar inspiratory crackles. On room air. Tachypneic. Speaks in 2-3 word phrases. CVS: S1 and S2 normal with no audible murmur, regular rhythm. No extra heart sounds ABDOMEN: No hepatosplenomegaly, active bowel sounds, no guarding or rigidity. SKIN: No rashes CENTRAL NERVOUS SYSTEM: Alert oriented x 3 no gross focal deficits EXTREMITIES: There is 2+ bilateral lower extremity edema. No clubbing, or cyanosis. Peripheral pulses are intact. - Labs CBC & Chem 7: 11/22/23 08:30 11/22/23 08:30 Labs: Abnormal Lab Results - Last 24 Hours (Table) 11/21/23 11/21/23 11/22/23 Range/Units 06:07 20:28 06:17 RBC (3.80-5.40) m/uL Hgb (11.4-16.0) gm/dL Hct (34.0-46.0) % MCHC (31.0-37.0) g/dL RDW (11.5-15.5) % Lymphocytes # (1.0-4.8) k/uL Sodium (137-145) mmol/L BUN (7-17) mg/dL Creatinine (0.52-1.04) mg/dL Glucose (74-99) mg/dL POC Glucose (mg/dL) 184 H 169 H (70-110) mg/dL Iron 37 L (50-170) UG/DL % Saturation 9.97 L (12.00-45.00) Vitamin B12 155.0 L (200.0-944.0) pg/mL 11/22/23 11/22/23 11/22/23 Range/Units 08:30 08:30 11:28 RBC 3.48 L (3.80-5.40) m/uL Hgb 9.1 L (11.4-16.0) gm/dL Hct 31.4 L (34.0-46.0) % MCHC 29.0 L (31.0-37.0) g/dL RDW 18.2 H (11.5-15.5) % Lymphocytes # 0.7 L (1.0-4.8) k/uL Sodium 136 L (137-145) mmol/L BUN 33 H (7-17) mg/dL Creatinine 1.14 H (0.52-1.04) mg/dL Glucose 199 H (74-99) mg/dL POC Glucose (mg/dL) 177 H (70-110) mg/dL Iron (50-170) UG/DL % Saturation (12.00-45.00) Vitamin B12 (200.0-944.0) pg/mL Assessment and Plan Assessment: Impression: Syncope secondary to sick sinus syndrome and intermittent episodes of profound bradycardia. History of persistent/chronic atrial fibrillation status/post cardiac ablation, performed on 10/31/2023 Facial trauma secondary to above, facial CT demonstrated fractures of the nasal bones including central bridge and possible maxillary spine fracture. There are fluid levels within the maxillary sinuses and opacification of the nasal passage, likely from blood. Normocytic normochromic anemia, no overt acute blood loss noted Coronary artery disease, with previous history of PCI/stenting to the LAD History of hypertension History of hyperlipidemia History of diabetes mellitus Morbid obesity with a BMI of 43.3 kg/m History of moderate obstructive sleep apnea, normally maintained on CPAP at home with a pressure support of 8, will not be able to tolerate full facemask currently with nasal fractures Never tobacco smoker Recommendation: Continue to hold beta-blockers Continue to monitor on selective Patient has no active pulmonary issues at this point. Patient was seen by cardiology and planning pacemaker implantation early next week. Will continue to follow Time with Patient: Less than 30
[2023-11-22 16:05] LABS: Glucose,Whole Blood 233 mg/dL (70-110)
[2023-11-22 20:09] LABS: Glucose,Whole Blood 165 mg/dL (70-110)
[2023-11-23 06:29] LABS: Glucose,Whole Blood 184 mg/dL (70-110)
[2023-11-23] MEDS: FERROUS SULFATE 325 MG TAB PO SCH (06:47)
[2023-11-23 08:25] LABS: African American GFR (CKD) 69 (>60 ml/min/1.73 sqM); Anion Gap 7 mmol/L; Blood Urea Nitrogen 35 mg/dL (7-17); Calcium 10.2 mg/dL (8.4-10.2); Carbon Dioxide 25 mmol/L (22-30); Chloride 108 mmol/L (98-107); Glucose 170 mg/dL (74-99); Non-African American GFR(CKD) 60 (>60 ml/min/1.73 sqM); Sodium 140 mmol/L (137-145)
[2023-11-23 08:28] LABS: Potassium 5.5 mmol/L (3.5-5.1)
[2023-11-23 08:48] LABS: Anisocytosis Slight; Basophils % (A) 0 %; Eosinophils # (A) 0.2 k/uL (0-0.7); Eosinophils % (A) 3 %; HCT 31.2 % (34.0-46.0); HGB 9.5 gm/dL (11.4-16.0); Hypochromasia Moderate; Lymphocytes # (A) 0.8 k/uL (1.0-4.8); Lymphocytes % (A) 13 %; MCH 26.2 pg (25.0-35.0); MCHC 30.3 g/dL (31.0-37.0); MCV 86.2 fL (80.0-100.0); Mean Platelet Volume 10.1; Monocytes # (A) 0.6 k/uL (0-1.0); Monocytes % (A) 9 %; Neutrophils # (A) 4.9 k/uL (1.3-7.7); Neutrophils % (A) 74 %; Platelet Count 160 k/uL (150-450); RBC 3.62 m/uL (3.80-5.40); RDW 18.3 % (11.5-15.5); WBC 6.6 k/uL (3.8-10.6)
[2023-11-23] MEDS: LOSARTAN 25 MG TAB PO SCH (08:52)
[2023-11-23 11:35] LABS: Glucose,Whole Blood 184 mg/dL (70-110)
--- NOTE | 2023-11-23 11:55 | P.PN ---
Subjective Progress Note Date: 11/23/23 The patient is a 68-year-old female who is currently admitted to the hospital after experiencing a syncopal episode. The patient was found to be bradycardic. Her antiarrhythmic therapy was discontinued months ago and her beta-lawson was discontinued upon admission. She has remained bradycardic with heart rates averaging in the 40s to 50s. She is pending a pacemaker implantation on Saturday. The patient states she did well over the last 24 hours. No shortness of breath or chest discomfort. She states she is voiding well GENERAL: Well-appearing, well-nourished and in no acute distress. Bruising to bilateral orbits. NECK: Supple without JVD or thyromegaly. LUNGS: Breath sounds clear to auscultation bilaterally. Respiration equal and unlabored. No wheezes, rales or rhonchi. HEART: Regular rate and rhythm without murmurs, rubs or gallops. S1 and S2 heard. EXTREMITIES: Normal range of motion, mild edema. No clubbing or cyanosis. Peripheral pulses intact and strong. TELEMETRY: Sinus bradycardia LABS: WBC 6.6, hemoglobin 9.5, hematocrit 31.2, platelet 160, sodium 140, potassium 5.5, BUN 35, creatinine 0.96 IMPRESSION: Syncope and collapse Sinus bradycardia History of atrial fibrillation, status post ablation Hypothyroidism Sick sinus syndrome Hyperkalemia PLAN: Discontinue spironolactone for 24 hours Consider resuming Aldactazide Plan for pacemaker on Saturday I am dictating on behalf of Dr Richie Kimbrough's history/physical and assessment/plan. Objective - Vital Signs Vital signs: Vital Signs Temp 97.8 F 11/23/23 08:56 Pulse 54 L 11/23/23 08:56 Resp 16 11/23/23 08:56 BP 149/64 11/23/23 08:56 Pulse Ox 98 11/23/23 08:56 FiO2 Intake & Output 11/22/23 11/23/23 11/23/23 18:59 06:59 18:59 Intake Total 676 118 Output Total 575 Balance 676 -575 118 Weight 118.3 kg Intake: IV 100 Magnesium Sulfate-D5w Pmx 100 1 gm In Dextrose/Water 1 100ml.bag @ 100 mls/hr IVPB ONCE ONE Rx#: [id number] Intake, IV Titration 100 Amount Sodium Ferric Gluconat- 100 Sucrose 125 mg In Sodium Chloride 0.9% 100 ml @ 100 mls/hr IVPB ONCE ONE Rx#:[id number] Oral 476 118 Output: Urine 575 Other: Voiding Method Toilet Toilet Toilet # Voids 1 1 - Labs CBC & Chem 7: 11/23/23 07:41 11/23/23 07:41 Labs: Abnormal Lab Results - Last 24 Hours (Table) 11/22/23 11/22/23 11/22/23 Range/Units 11:28 16:03 20:08 RBC (3.80-5.40) m/uL Hgb (11.4-16.0) gm/dL Hct (34.0-46.0) % MCHC (31.0-37.0) g/dL RDW (11.5-15.5) % Lymphocytes # (1.0-4.8) k/uL Potassium (3.5-5.1) mmol/L Chloride (98-107) mmol/L BUN (7-17) mg/dL Glucose (74-99) mg/dL POC Glucose (mg/dL) 177 H 233 H 165 H (70-110) mg/dL 11/23/23 11/23/23 11/23/23 Range/Units 06:27 07:41 07:41 RBC 3.62 L (3.80-5.40) m/uL Hgb 9.5 L (11.4-16.0) gm/dL Hct 31.2 L (34.0-46.0) % MCHC 30.3 L (31.0-37.0) g/dL RDW 18.3 H (11.5-15.5) % Lymphocytes # 0.8 L (1.0-4.8) k/uL Potassium 5.5 H (3.5-5.1) mmol/L Chloride 108 H (98-107) mmol/L BUN 35 H (7-17) mg/dL Glucose 170 H (74-99) mg/dL POC Glucose (mg/dL) 184 H (70-110) mg/dL
--- NOTE | 2023-11-23 12:38 | P.PN ---
Subjective Progress Note Date: 11/23/23 Principal diagnosis: Syncopal event secondary to sick sinus syndrome Patient is a 68-year-old white female with past medical history significant for chronic/persistent atrial fibrillation status post cardioversion and more recent cardiac ablation, coronary artery disease with previous PCI/stent to the LAD, hypertension, hyperlipidemia, diabetes mellitus, obesity, obstructive sleep apnea. Patient has seen Dr. Pereira in the pulmonary office for her obstructive sleep apnea, but otherwise does not have any history of lung disease. She wears a CPAP at night with a pressure support of 8. Never tobacco smoker. Patient presented the emergency room yesterday evening, after a syncopal event on the toilet. She sustained a facial injury. Facial CT demonstrated fractures of the nasal bones including central bridge, and possible maxillary spine fracture. There are fluid levels within the maxillary sinus and opacification of the nasal passage, likely from blood. Also underwent CT of the brain and C-spine without contrast which did not show any acute cervical spine fractures. Incidental findings included spinal canal narrowing of C6-C7 due to posterior endplate and foraminal narrowing from vertebral joint hypertrophy. Of note, patient does have persistent chronic atrial fibrillation, which has been refractory to therapy. She did recently undergo a EP study with cardiac ablation on 10/31/2023. On arrival to the emergency room, she was noted to be bradycardic. This was a sinus bradycardia with a rate of 50 bpm, no obvious acute ischemic changes.. She states that she recently turned in her potline monitor that she was wearing on an outpatient basis to [facility]. Her manager of case is Dr. Cabrales. She also takes beta-blockers outpatient, metoprolol 25 mg p.o. daily. We were consulted as the patient has become progressively more short of breath over the last month. she has noted an associated approximate 40 pound weight gain over the last 1 month. She also endorses increased lower extremity swelling and abdominal fullness. She has been experiencing orthopnea. She does also reportedly wake up in the middle night gasping for air. She can only tolerate her CPAP for approximately 4 hours per night. Denies any chest pain. Denies any heart palpitations. No previous syncopal events prior to this hospitalization. No seizure history. Denies any infectious-like symptoms. Chest x-ray shows cardiomegaly, opacification throughout the right greater than the left which could represent infectious/inflammatory process, however, favors pulmonary edema. NT proBNP was elevated at 4330. Most recent echocardiogram done 10/22/2023 which was a limited study. Estimated LV ejection fraction was approximately 45 to 50%. CBC on arrival: WBC count 6, hemoglobin 8.6, hematocrit 28.6, platelets 166. Patient does suffer from chronic anemia, ho wever, hemoglobin is lower than baseline. She does take Xarelto outpatient. Denies any xu blood loss in her stool or melena. Denies any nausea, vomiting, or hematemesis. Denies any vaginal bleeding. She does have history of lower GI bleeding. Most recent colonoscopy was on 09/06/2022 which demonstrated internal hemorrhoids and diverticulosis without diverticulitis. No obvious source of GI bleeding identified at that time. BMP on arrival unremarkable. LFTs not elevated. Troponin 0.018 and 0.02 respectively. She is currently resting in bed, on room air, she is slightly tachypneic. Speaks in 2- 3 word phrases. She does have swelling of her nose and periorbital ecchymosis. Likely will not be able to tolerate her full facemask CPAP. Currently hemodynamically stable. Patient was really today on 11/22/2023, patient was seen yesterday, and I transferred the patient to the cardiac floor, seen by cardiology and she seems to have a sick sinus syndrome. Patient is now scheduled to have a pacemaker implantation by Dr. Chin next week. In the meantime the patient is relatively asymptomatic, feeling better, her beta-blockers remain on hold. Patient remains bradycardic, and at times her rate is below 45.WBC count is 5.9 hemoglobin 9.1 basic metabolic profile is normal renal profile showed a BUN of 33 creatinine 1.14 Patient was evaluated today on 11/23/2023, doing well, relatively asymptomatic, continues to have significant bradycardia, but asymptomatic. Patient is sched uled to have pacemaker implantation on Saturday. In the meantime she remains off beta-blockers. WBC count is 6.6 hemoglobin 9.5, basic metabolic profile is normal except for slightly elevated potassium of 5.5 renal profile is normal Objective - Vital Signs Vital signs: Vital Signs Temp 97.8 F 11/23/23 08:56 Pulse 54 L 11/23/23 08:56 Resp 16 11/23/23 08:56 BP 149/64 11/23/23 08:56 Pulse Ox 98 11/23/23 08:56 FiO2 Intake & Output 11/22/23 11/23/23 11/23/23 18:59 06:59 18:59 Intake Total 676 118 Output Total 575 Balance 676 -575 118 Weight 118.3 kg Intake: IV 100 Magnesium Sulfate-D5w Pmx 100 1 gm In Dextrose/Water 1 100ml.bag @ 100 mls/hr IVPB ONCE ONE Rx#: [id number] Intake, IV Titration 100 Amount Sodium Ferric Gluconat- 100 Sucrose 125 mg In Sodium Chloride 0.9% 100 ml @ 100 mls/hr IVPB ONCE ONE Rx#:[id number] Oral 476 118 Output: Urine 575 Other: Voiding Method Toilet Toilet Toilet # Voids 1 1 - Exam GENERAL EXAM: Reveals 68-year-old female in no distress, continues to have periorbital ecchymosis from recent fall/syncope HEAD: Normocephalic, facial trauma appreciated and mentioned above EYES: Normal reaction of pupils, equal size. NOSE: Clear with pink turbinates. THROAT: No erythema or exudates. NECK: No masses, no JVD. CHEST: No chest wall deformity. LUNGS: Equal air entry with bibasilar inspiratory crackles. On room air. Tachypneic. Speaks in 2-3 word phrases. CVS: S1 and S2 normal with no audible murmur, regular rhythm. No extra heart sounds ABDOMEN: No hepatosplenomegaly, active bowel sounds, no guarding or rigidity. SKIN: No rashes CENTRAL NERVOUS SYSTEM: Alert oriented x 3 no gross focal deficits EXTREMITIES: There is 1+ bilateral lower extremity edema. No clubbing, or cya nosis. Peripheral pulses are intact. - Labs CBC & Chem 7: 11/23/23 07:41 11/23/23 07:41 Labs: Abnormal Lab Results - Last 24 Hours (Table) 11/22/23 11/22/23 11/23/23 Range/Units 16:03 20:08 06:27 RBC (3.80-5.40) m/uL Hgb (11.4-16.0) gm/dL Hct (34.0-46.0) % MCHC (31.0-37.0) g/dL RDW (11.5-15.5) % Lymphocytes # (1.0-4.8) k/uL Potassium (3.5-5.1) mmol/L Chloride (98-107) mmol/L BUN (7-17) mg/dL Glucose (74-99) mg/dL POC Glucose (mg/dL) 233 H 165 H 184 H (70-110) mg/dL 11/23/23 11/23/23 11/23/23 Range/Units 07:41 07:41 11:33 RBC 3.62 L (3.80-5.40) m/uL Hgb 9.5 L (11.4-16.0) gm/dL Hct 31.2 L (34.0-46.0) % MCHC 30.3 L (31.0-37.0) g/dL RDW 18.3 H (11.5-15.5) % Lymphocytes # 0.8 L (1.0-4.8) k/uL Potassium 5.5 H (3.5-5.1) mmol/L Chloride 108 H (98-107) mmol/L BUN 35 H (7-17) mg/dL Glucose 170 H (74-99) mg/dL POC Glucose (mg/dL) 184 H (70-110) mg/dL Assessment and Plan Assessment: Impression: Syncope secondary to sick sinus syndrome and intermittent episodes of profound bradycardia. History of persistent/chronic atrial fibrillation status/post cardiac ablation, performed on 10/31/2023 Facial trauma secondary to above, facial CT demonstrated fractures of the nasal bones including central bridge and possible maxillary spine fracture. There are fluid levels within the maxillary sinuses and opacification of the nasal passage, likely from blood. Normocytic normochromic anemia, no overt acute blood loss noted Coronary artery disease, with previous history of PCI/stenting to the LAD History of hypertension History of hyperlipidemia History of diabetes mellitus Morbid obesity with a BMI of 43.3 kg/m History of moderate obstructive sleep apnea, normally maintained on CPAP at home with a pressure support of 8, will not be able to tolerate full facemask currently with nasal fractures Never tobacco smoker Recommendation: Continue to hold beta-blockers Continue to monitor on selective Continues to have no active pulmonary issues at this point. Pacemaker implantation planned next Saturday Will continue to follow Time with Patient: Less than 30
--- NOTE | 2023-11-23 12:39 | P.PN ---
Subjective Progress Note Date: 11/23/23 Luz Swann is a 67 yo F with PMH significant for recent cardiac ablation, cardioversion, coronary artery disease with previous stenting, persistent atrial fibrillation, cardiomyopathy hypertension, hyperlipidemia, obesity, obstructive sleep apnea, diabetes, and cardiomyopathy, transported to the ER via EMS,status post syncope, sustaining a fall with facial injury. Patient stated she was sitting on commode, "catching her breath" before proceeding to stand up with her walker.denied lightheadedness or dizziness while sitting .Woke up on the floor with nose bleeding. cardiac ablation was on 10/31/2023, diuretics/Lasix resumed 2 weeks postprocedure per PCP. Patient reports progressive shortness of breath, gained 40 pounds in the last 3 to 4 weeks, increased lower extremity edema, decreased walking distances-only able to walk up to about 5 feet before sitting down to regain her breath. Nonproductive cough. positive orthopnea. Denies chest pain, palpitations. Troponins negative x 3. denies headache, denies blurred vision. Face CT reported fractures of the nasal bones including central bridge, possible maxillary spine fracture. Fluid levels within the maxillary sinus and opacification of the nasal passage, likely from blood. Head/cervical spine CT reported no acute fractures within the cervical spine.Spinal canal narrowing of C6-C7 due to posterior endplate spurring C5-6 and foraminal narrowing from unconvertebral joint hypertrophy. Chest x-ray reported opacity throughout right greater than left lungs representing pulmonary edema, possible infectious/inflammatory process. Procalcitonin pending. Afebrile, normal WBC. Hemoglobin 8.6, 8.9, in a patient with baseline hemoglobin of 11.7-12 ,platelets 166, 155, on Xarelto. Denies blood in stools, denies dark stools. Denies abdom inal pain. Received a dose of IV push Lasix followed by oral Lasix with reported improvement in her breathing. Conversing without shortness of breath. Maintaining O2 sats in the low 90s on room air. 11/22/2023 evaluated by GI with recommendations noted-no endoscopy recommended given recent EGD and colonoscopy. Lasix discontinued yesterday. Significant improvement in edema, 24-hour I&O inaccurate, no current weight. Renal function worsening, BUN 33, creatinine 1.14. Hyzaar discontinued, Cozaar ordered-as discussed with cardiology. Telemetry sinus bradycardia, heart rate currently in the 40s, telemetry reporting 30s when sleeping; patient scheduled for pacemaker placement on Saturday.Reports lightheadedness while sitting up in chair, denies headache-reports just "achy".complains of entire body feeling achy from her recent fall outpatient. Denies chest pain, palpitations or shortness of breath. Maintaining O2 sats in the low 90s on room air. Nonproductive cough, no wheezing today. Reports abdomen significantly less bloated. Afebrile, normal WBC, hemoglobin up to 9.1, platelets 156. Blood sugars controlled. Iron studies noted, iron deficient. IV ferritin ordered. TSH 8.16, free T4 1.09, levothyroxine increased. 11/22. Patient seen and examined. Currently sitting up in the chair. Denies any lightheadedness or dizziness. REVIEW OF SYSTEMS: CONSTITUTIONAL: No fever, no malaise,. CARDIOVASCULAR: No chest pain, no palpitations, no syncope. PULMONARY: No shortness of breath, no cough, GASTROINTESTINAL: No diarrhea, no nausea, no vomiting, no abdominal pain. NEUROLOGICAL: No headaches, no weakness, PHYSICAL EXAMINATION: GENERAL: The patient is alert and oriented x3, bruising seen around the eyes from the fall HEENT: Pupils are round and equally reacting to light. EOMI. No scleral icterus. No conjunctival pallor. Normocephalic, atraumatic. No pharyngeal erythema. No thyromegaly. CARDIOVASCULAR: S1 and S2 present. No murmurs, rubs, or gallops. PULMONARY: Chest is clear to auscultation, no wheezing or crackles. ABDOMEN: Soft, nontender, nondistended, normoactive bowel sounds. No palpable organomegaly. MUSCULOSKELETAL: No joint swelling or deformity. EXTREMITIES: No cyanosis, clubbing, or pedal edema. NEUROLOGICAL: Gross neurological examination did not reveal any focal deficits. SKIN: No rashes. Assessment and plan Nasal fracture Fall Acute anemia in a patient with history of chronic anemia, secondary to traumatic fall, iron deficient. Sinus bradycardia, symptomatic Acute renal insufficiency Chronic persistent atrial fibrillation Recent cardiac ablation 10/31/2023 CAD, history of stenting to the LAD Hypertension Hyperlipidemia History of cardiomyopathy, EF 45% Diabetes mellitus II, hemoglobin A1c 6.6 Morbid obesity, BMI 43 Syncope and collapse Hypothyroidism Sick sinus syndrome Hyperkalemia Monitor vital signs Monitor CBC Monitor CMP Continue telemetry monitoring Hold AV cathleen blocking agents Potassium was elevated, Aldactone was discontinued Continue losartan Continue Lipitor Pacemaker scheduled for Saturday, Cardiology following Pulmonology following Labs and medication were reviewed.. Continue same treatment. Continue with symptomatic treatment. Resume home medication. Monitor labs and vitals. DVT and GI prophylaxis. Further recommendations as per clinical course of the patient Dictation was produced using [employer] dictation software. please excuse any grammatical, word or spelling errors. Objective - Vital Signs Vital signs: Vital Signs Temp 97.8 F 11/23/23 08:56 Pulse 54 L 11/23/23 08:56 Resp 16 11/23/23 08:56 BP 149/64 11/23/23 08:56 Pulse Ox 98 11/23/23 08:56 FiO2 Intake & Output 11/22/23 11/23/23 11/23/23 18:59 06:59 18:59 Intake Total 676 118 Output Total 575 Balance 676 -575 118 Weight 118.3 kg Intake: IV 100 Magnesium Sulfate-D5w Pmx 100 1 gm In Dextrose/Water 1 100ml.bag @ 100 mls/hr IVPB ONCE ONE Rx#: [id number] Intake, IV Titration 100 Amount Sodium Ferric Gluconat- 100 Sucrose 125 mg In Sodium Chloride 0.9% 100 ml @ 100 mls/hr IVPB ONCE ONE Rx#:[id number] Oral 476 118 Output: Urine 575 Other: Voiding Method Toilet Toilet Toilet # Voids 1 1 - Labs CBC & Chem 7: 11/23/23 07:41 11/23/23 07:41 Labs: Abnormal Lab Results - Last 24 Hours (Table) 11/22/23 11/22/23 11/23/23 Range/Units 16:03 20:08 06:27 RBC (3.80-5.40) m/uL Hgb (11.4-16.0) gm/dL Hct (34.0-46.0) % MCHC (31.0-37.0) g/dL RDW (11.5-15.5) % Lymphocytes # (1.0-4.8) k/uL Potassium (3.5-5.1) mmol/L Chloride (98-107) mmol/L BUN (7-17) mg/dL Glucose (74-99) mg/dL POC Glucose (mg/dL) 233 H 165 H 184 H (70-110) mg/dL 11/23/23 11/23/23 11/23/23 Range/Units 07:41 07:41 11:33 RBC 3.62 L (3.80-5.40) m/uL Hgb 9.5 L (11.4-16.0) gm/dL Hct 31.2 L (34.0-46.0) % MCHC 30.3 L (31.0-37.0) g/dL RDW 18.3 H (11.5-15.5) % Lymphocytes # 0.8 L (1.0-4.8) k/uL Potassium 5.5 H (3.5-5.1) mmol/L Chloride 108 H (98-107) mmol/L BUN 35 H (7-17) mg/dL Glucose 170 H (74-99) mg/dL POC Glucose (mg/dL) 184 H (70-110) mg/dL
[2023-11-23 16:14] LABS: Glucose,Whole Blood 152 mg/dL (70-110)
[2023-11-23 20:30] LABS: Glucose,Whole Blood 225 mg/dL (70-110)
[2023-11-23] MEDS: HYDROcodone/APAP 10-325MG 1 EACH TAB PO PRN (21:07)
[2023-11-24 06:20] LABS: Glucose,Whole Blood 179 mg/dL (70-110)
[2023-11-24 10:28] LABS: Anisocytosis Slight; Basophils % (A) 0 %; Eosinophils # (A) 0.2 k/uL (0-0.7); Eosinophils % (A) 3 %; HCT 31.4 % (34.0-46.0); HGB 9.5 gm/dL (11.4-16.0); Hypochromasia Marked; Lymphocytes # (A) 0.9 k/uL (1.0-4.8); Lymphocytes % (A) 14 %; MCH 26.8 pg (25.0-35.0); MCHC 30.3 g/dL (31.0-37.0); MCV 88.4 fL (80.0-100.0); Mean Platelet Volume 9.2; Monocytes # (A) 0.5 k/uL (0-1.0); Monocytes % (A) 8 %; Neutrophils # (A) 4.3 k/uL (1.3-7.7); Neutrophils % (A) 72 %; Platelet Count 157 k/uL (150-450); RBC 3.55 m/uL (3.80-5.40); RDW 18.3 % (11.5-15.5)
[2023-11-24 10:33] LABS: ALT 13 U/L (4-34); AST 22 U/L (14-36); African American GFR (CKD) 64 (>60 ml/min/1.73 sqM); Alkaline Phosphatase 72 U/L (38-126); Anion Gap 6 mmol/L; Blood Urea Nitrogen 37 mg/dL (7-17); Calcium 9.8 mg/dL (8.4-10.2); Carbon Dioxide 27 mmol/L (22-30); Chloride 105 mmol/L (98-107); Glucose 174 mg/dL (74-99); Non-African American GFR(CKD) 55 (>60 ml/min/1.73 sqM); Potassium 5.5 mmol/L (3.5-5.1); Sodium 138 mmol/L (137-145); Total Bilirubin 0.6 mg/dL (0.2-1.3); Total Protein 6.5 g/dL (6.3-8.2)
[2023-11-24 12:09] LABS: Glucose,Whole Blood 167 mg/dL (70-110)
[2023-11-24] MEDS: hydroCHLOROthiazide 25 MG TAB PO SCH (12:25)
--- NOTE | 2023-11-24 12:57 | P.PN ---
Subjective Progress Note Date: 11/24/23 The patient is a 68-year-old female who is currently admitted to the hospital after experiencing a syncopal episode. The patient was found to be bradycardic. Her antiarrhythmic therapy was discontinued months ago and her beta-lawson was discontinued upon admission. She has remained bradycardic with heart rates averaging in the 40s to 50s. Pacemaker implantation tomorrow with Dr. Kimbrough. The patient states she is doing well other than having increased lower extremity edema. No difficulty breathing. No chest pain. GENERAL: Well-appearing, well-nourished and in no acute distress. Bruising to bilateral orbits. NECK: Supple without JVD or thyromegaly. LUNGS: Breath sounds clear to auscultation bilaterally. Respiration equal and unlabored. No wheezes, rales or rhonchi. HEART: Regular rate and rhythm without murmurs, rubs or gallops. S1 and S2 heard. EXTREMITIES: Normal range of motion, mild edema. No clubbing or cyanosis. Peripheral pulses intact and strong. TELEMETRY: Sinus bradycardia LABS: Sodium 138, potassium 5.5, BUN 37, creatinine 1.03, AST 22, ALT 13 IMPRESSION: Syncope and collapse Sinus bradycardia History of atrial fibrillation, status post ablation Hypothyroidism Sick sinus syndrome Hyperkalemia PLAN: Resume hydrochlorothiazide 25 mg daily N.p.o. after midnight Proceed with pacemaker implantation tomorrow I am dictating on behalf of Dr Richie Kimbrough's history/physical and assessment/plan. Objective - Vital Signs Vital signs: Vital Signs Temp 97.8 F 11/24/23 12:24 Pulse 46 L 11/24/23 12:24 Resp 15 11/24/23 12:24 BP 170/63 11/24/23 12:24 Pulse Ox 97 11/24/23 12:24 FiO2 Intake & Output 11/23/23 11/24/23 11/24/23 18:59 06:59 18:59 Intake Total 354 540 240 Output Total 450 800 Balance -96 -260 240 Weight 118.8 kg Intake: Oral 354 540 240 Output: Urine 450 800 Other: Voiding Method Toilet Toilet - Labs CBC & Chem 7: 11/24/23 09:57 11/24/23 09:57 Labs: Abnormal Lab Results - Last 24 Hours (Table) 11/23/23 11/23/23 11/24/23 Range/Units 16:13 20:29 06:19 RBC (3.80-5.40) m/uL Hgb (11.4-16.0) gm/dL Hct (34.0-46.0) % MCHC (31.0-37.0) g/dL RDW (11.5-15.5) % Lymphocytes # (1.0-4.8) k/uL Potassium (3.5-5.1) mmol/L BUN (7-17) mg/dL Glucose (74-99) mg/dL POC Glucose (mg/dL) 152 H 225 H 179 H (70-110) mg/dL 11/24/23 11/24/23 11/24/23 Range/Units 09:57 09:57 12:08 RBC 3.55 L (3.80-5.40) m/uL Hgb 9.5 L (11.4-16.0) gm/dL Hct 31.4 L (34.0-46.0) % MCHC 30.3 L (31.0-37.0) g/dL RDW 18.3 H (11.5-15.5) % Lymphocytes # 0.9 L (1.0-4.8) k/uL Potassium 5.5 H (3.5-5.1) mmol/L BUN 37 H (7-17) mg/dL Glucose 174 H (74-99) mg/dL POC Glucose (mg/dL) 167 H (70-110) mg/dL
--- NOTE | 2023-11-24 13:35 | P.PN ---
Subjective Progress Note Date: 11/24/23 Luz Swann is a 67 yo F with PMH significant for recent cardiac ablation, cardioversion, coronary artery disease with previous stenting, persistent atrial fibrillation, cardiomyopathy hypertension, hyperlipidemia, obesity, obstructive sleep apnea, diabetes, and cardiomyopathy, transported to the ER via EMS,status post syncope, sustaining a fall with facial injury. Patient stated she was sitting on commode, "catching her breath" before proceeding to stand up with her walker.denied lightheadedness or dizziness while sitting .Woke up on the floor with nose bleeding. cardiac ablation was on 10/31/2023, diuretics/Lasix resumed 2 weeks postprocedure per PCP. Patient reports progressive shortness of breath, gained 40 pounds in the last 3 to 4 weeks, increased lower extremity edema, decreased walking distances-only able to walk up to about 5 feet before sitting down to regain her breath. Nonproductive cough. positive orthopnea. Denies chest pain, palpitations. Troponins negative x 3. denies headache, denies blurred vision. Face CT reported fractures of the nasal bones including central bridge, possible maxillary spine fracture. Fluid levels within the maxillary sinus and opacification of the nasal passage, likely from blood. Head/cervical spine CT reported no acute fractures within the cervical spine.Spinal canal narrowing of C6-C7 due to posterior endplate spurring C5-6 and foraminal narrowing from unconvertebral joint hypertrophy. Chest x-ray reported opacity throughout right greater than left lungs representing pulmonary edema, possible infectious/inflammatory process. Procalcitonin pending. Afebrile, normal WBC. Hemoglobin 8.6, 8.9, in a patient with baseline hemoglobin of 11.7-12 ,platelets 166, 155, on Xarelto. Denies blood in stools, denies dark stools. Denies abdom inal pain. Received a dose of IV push Lasix followed by oral Lasix with reported improvement in her breathing. Conversing without shortness of breath. Maintaining O2 sats in the low 90s on room air. 11/22/2023 evaluated by GI with recommendations noted-no endoscopy recommended given recent EGD and colonoscopy. Lasix discontinued yesterday. Significant improvement in edema, 24-hour I&O inaccurate, no current weight. Renal function worsening, BUN 33, creatinine 1.14. Hyzaar discontinued, Cozaar ordered-as discussed with cardiology. Telemetry sinus bradycardia, heart rate currently in the 40s, telemetry reporting 30s when sleeping; patient scheduled for pacemaker placement on Saturday.Reports lightheadedness while sitting up in chair, denies headache-reports just "achy".complains of entire body feeling achy from her recent fall outpatient. Denies chest pain, palpitations or shortness of breath. Maintaining O2 sats in the low 90s on room air. Nonproductive cough, no wheezing today. Reports abdomen significantly less bloated. Afebrile, normal WBC, hemoglobin up to 9.1, platelets 156. Blood sugars controlled. Iron studies noted, iron deficient. IV ferritin ordered. TSH 8.16, free T4 1.09, levothyroxine increased. 11/22. Patient seen and examined. Currently sitting up in the chair. Denies any lightheadedness or dizziness. 11/23. Patient seen and examined. Patient being planned for pacemaker placement on Saturday, n.p.o. after midnight. Complaining of swelling of lower extremities REVIEW OF SYSTEMS: CONSTITUTIONAL: No fever, no malaise,. CARDIOVASCULAR: No chest pain, no palpitations, no syncope. PULMONARY: No shortness of breath, no cough, GASTROINTESTINAL: No diarrhea, no nausea, no vomiting, no abdominal pain. NEUROLOGICAL: No headaches, no weakness, PHYSICAL EXAMINATION: GENERAL: The patient is alert and oriented x3, bruising seen around the eyes from the fall HEENT: Pupils are round and equally reacting to light. EOMI. No scleral icterus. No conjunctival pallor. Normocephalic, atraumatic. No pharyngeal erythema. No thyromegaly. CARDIOVASCULAR: S1 and S2 present. No murmurs, rubs, or gallops. PULMONARY: Chest is clear to auscultation, no wheezing or crackles. ABDOMEN: Soft, nontender, nondistended, normoactive bowel sounds. No palpable organomegaly. MUSCULOSKELETAL: No joint swelling or deformity. EXTREMITIES: No cyanosis, clubbing, 2+ pitting edema edema lower EXTR bilaterally NEUROLOGICAL: Gross neurological examination did not reveal any focal deficits. SKIN: No rashes. Assessment and plan Nasal fracture Fall Acute anemia in a patient with history of chronic anemia, secondary to traumatic fall, iron deficient. Sinus bradycardia, symptomatic Acute renal insufficiency Chronic persistent atrial fibrillation Recent cardiac ablation 10/31/2023 CAD, history of stenting to the LAD Hypertension Hyperlipidemia History of cardiomyopathy, EF 45% Diabetes mellitus II, hemoglobin A1c 6.6 Morbid obesity, BMI 43 Syncope and collapse Hypothyroidism Sick sinus syndrome Hyperkalemia Monitor vital signs Monitor CBC Monitor CMP Continue telemetry monitoring Hold AV cathleen blocking agents Continue losartan Continue Lipitor Pacemaker scheduled for Saturday, n.p.o. after midnight Cardiology following Pulmonology following Labs and medication were reviewed.. Continue same treatment. Continue with symptomatic treatment. Resume home medication. Monitor labs and vitals. DVT and GI prophylaxis. Further recommendations as per clinical course of the patient Dictation was produced using [employer] dictation software. please excuse any grammatical, word or spelling errors. Objective - Vital Signs Vital signs: Vital Signs Temp 98 F 11/24/23 04:00 Pulse 48 L 11/24/23 09:00 Resp 18 11/24/23 09:00 BP 153/55 11/24/23 09:00 Pulse Ox 98 11/24/23 09:00 FiO2 Intake & Output 11/23/23 11/24/23 11/24/23 18:59 06:59 18:59 Intake Total 354 540 Output Total 450 800 Balance -96 -260 Weight 118.8 kg Intake: Oral 354 540 Output: Urine 450 800 Other: Voiding Method Toilet Toilet - Labs CBC & Chem 7: 11/24/23 09:57 11/24/23 09:57 Labs: Abnormal Lab Results - Last 24 Hours (Table) 11/23/23 11/23/23 11/23/23 Range/Units 11:33 16:13 20:29 POC Glucose (mg/dL) 184 H 152 H 225 H (70-110) mg/dL 11/24/23 Range/Units 06:19 POC Glucose (mg/dL) 179 H (70-110) mg/dL
--- NOTE | 2023-11-24 14:00 | P.PN ---
Subjective Progress Note Date: 11/24/23 Principal diagnosis: Syncopal event secondary to sick sinus syndrome Patient is a 68-year-old white female with past medical history significant for chronic/persistent atrial fibrillation status post cardioversion and more recent cardiac ablation, coronary artery disease with previous PCI/stent to the LAD, hypertension, hyperlipidemia, diabetes mellitus, obesity, obstructive sleep apnea. Patient has seen Dr. Pereira in the pulmonary office for her obstructive sleep apnea, but otherwise does not have any history of lung disease. She wears a CPAP at night with a pressure support of 8. Never tobacco smoker. Patient presented the emergency room yesterday evening, after a syncopal event on the toilet. She sustained a facial injury. Facial CT demonstrated fractures of the nasal bones including central bridge, and possible maxillary spine fracture. There are fluid levels within the maxillary sinus and opacification of the nasal passage, likely from blood. Also underwent CT of the brain and C-spine without contrast which did not show any acute cervical spine fractures. Incidental findings included spinal canal narrowing of C6-C7 due to posterior endplate and foraminal narrowing from vertebral joint hypertrophy. Of note, patient does have persistent chronic atrial fibrillation, which has been refractory to therapy. She did recently undergo a EP study with cardiac ablation on 10/31/2023. On arrival to the emergency room, she was noted to be bradycardic. This was a sinus bradycardia with a rate of 50 bpm, no obvious acute ischemic changes.. 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 Her farm equipment mechanic is Dr. Cabrales. She also takes beta-blockers outpatient, metoprolol 25 mg p.o. daily. We were consulted as the patient has become progressively more short of breath over the last month. she has noted an associated approximate 40 pound weight gain over the last 1 month. She also endorses increased lower extremity swelling and abdominal fullness. She has been experiencing orthopnea. She does also reportedly wake up in the middle night gasping for air. She can only tolerate her CPAP for approximately 4 hours per night. Denies any chest pain. Denies any heart palpitations. No previous syncopal events prior to this hospitalization. No seizure history. Denies any infectious-like symptoms. Chest x-ray shows cardiomegaly, opacification throughout the right greater than the left which could represent infectious/inflammatory process, however, favors pulmonary edema. NT proBNP was elevated at 4330. Most recent echocardiogram done 10/22/2023 which was a limited study. Estimated LV ejection fraction was approximately 45 to 50%. CBC on arrival: WBC count 6, hemoglobin 8.6, hematocrit 28.6, platelets 166. Patient does suffer from chronic anemia, ho wever, hemoglobin is lower than baseline. She does take Xarelto outpatient. Denies any xu blood loss in her stool or melena. Denies any nausea, vomiting, or hematemesis. Denies any vaginal bleeding. She does have history of lower GI bleeding. Most recent colonoscopy was on 09/06/2022 which demonstrated internal hemorrhoids and diverticulosis without diverticulitis. No obvious source of GI bleeding identified at that time. BMP on arrival unremarkable. LFTs not elevated. Troponin 0.018 and 0.02 respectively. She is currently resting in bed, on room air, she is slightly tachypneic. Speaks in 2- 3 word phrases. She does have swelling of her nose and periorbital ecchymosis. Likely will not be able to tolerate her full facemask CPAP. Currently hemodynamically stable. Patient was really today on 11/22/2023, patient was seen yesterday, and I transferred the patient to the cardiac floor, seen by cardiology and she seems to have a sick sinus syndrome. Patient is now scheduled to have a pacemaker implantation by Dr. Chin next week. In the meantime the patient is relatively asymptomatic, feeling better, her beta-blockers remain on hold. Patient remains bradycardic, and at times her rate is below 45.WBC count is 5.9 hemoglobin 9.1 basic metabolic profile is normal renal profile showed a BUN of 33 creatinine 1.14 Patient was evaluated today on 11/23/2023, doing well, relatively asymptomatic, continues to have significant bradycardia, but asymptomatic. Patient is sched uled to have pacemaker implantation on Saturday. In the meantime she remains off beta-blockers. WBC count is 6.6 hemoglobin 9.5, basic metabolic profile is normal except for slightly elevated potassium of 5.5 renal profile is normal Patient was today on 11/24/2023, patient is doing well, she presented initially with syncope and collapse, patient was found to have sick sinus syndrome. She is scheduled to have a pacemaker implantation tomorrow. Pulmonary garrido the patient is doing great, continues to have no active pulmonary symptoms, and again her presentation was mostly a cardiac presentation. No cough no wheezing no shortness of breath no chest pain. WBC count is 6 hemoglobin 9.5 basic me tabolic profile is normal renal profile is normal Objective - Vital Signs Vital signs: Vital Signs Temp 97.8 F 11/24/23 12:24 Pulse 46 L 11/24/23 12:24 Resp 15 11/24/23 12:24 BP 170/63 11/24/23 12:24 Pulse Ox 97 11/24/23 12:24 FiO2 Intake & Output 11/23/23 11/24/23 11/24/23 18:59 06:59 18:59 Intake Total 354 540 240 Output Total 450 800 Balance -96 -260 240 Weight 118.8 kg Intake: Oral 354 540 240 Output: Urine 450 800 Other: Voiding Method Toilet Toilet Toilet - Exam GENERAL EXAM: Reveals 68-year-old female in no distress, continues to have periorbital ecchymosis from recent fall/syncope HEAD: Normocephalic, facial trauma appreciated and mentioned above EYES: Normal reaction of pupils, equal size. NOSE: Clear with pink turbinates. THROAT: No erythema or exudates. NECK: No masses, no JVD. CHEST: No chest wall deformity. LUNGS: Equal air entry with bibasilar inspiratory crackles. On room air. Tachypneic. Speaks in 2-3 word phrases. CVS: S1 and S2 normal with no audible murmur, regular rhythm. No extra heart sounds ABDOMEN: No hepatosplenomegaly, active bowel sounds, no guarding or rigidity. SKIN: No rashes CENTRAL NERVOUS SYSTEM: Alert oriented x 3 no gross focal deficits EXTREMITIES: There is 1+ bilateral lower extremity edema. No clubbing, or cyanosis. Peripheral pulses are intact. - Labs CBC & Chem 7: 11/24/23 09:57 11/24/23 09:57 Labs: Abnormal Lab Results - Last 24 Hours (Table) 11/23/23 11/23/23 11/24/23 Range/Units 16:13 20:29 06:19 RBC (3.80-5.40) m/uL Hgb (11.4-16.0) gm/dL Hct (34.0-46.0) % MCHC (31.0-37.0) g/dL RDW (11.5-15.5) % Lymphocytes # (1.0-4.8) k/uL Potassium (3.5-5.1) mmol/L BUN (7-17) mg/dL Glucose (74-99) mg/dL POC Glucose (mg/dL) 152 H 225 H 179 H (70-110) mg/dL 11/24/23 11/24/23 11/24/23 Range/Units 09:57 09:57 12:08 RBC 3.55 L (3.80-5.40) m/uL Hgb 9.5 L (11.4-16.0) gm/dL Hct 31.4 L (34.0-46.0) % MCHC 30.3 L (31.0-37.0) g/dL RDW 18.3 H (11.5-15.5) % Lymphocytes # 0.9 L (1.0-4.8) k/uL Potassium 5.5 H (3.5-5.1) mmol/L BUN 37 H (7-17) mg/dL Glucose 174 H (74-99) mg/dL POC Glucose (mg/dL) 167 H (70-110) mg/dL Assessment and Plan Assessment: Impression: Syncope secondary to sick sinus syndrome and intermittent episodes of profound bradycardia. History of persistent/chronic atrial fibrillation status/post cardiac ablation, performed on 10/31/2023 Facial trauma secondary to above, facial CT demonstrated fractures of the nasal bones including central bridge and possible maxillary spine fracture. There are fluid levels within the maxillary sinuses and opacification of the nasal pa ssage, likely from blood. Normocytic normochromic anemia, no overt acute blood loss noted Coronary artery disease, with previous history of PCI/stenting to the LAD History of hypertension History of hyperlipidemia History of diabetes mellitus Morbid obesity with a BMI of 43.3 kg/m History of moderate obstructive sleep apnea, normally maintained on CPAP at home with a pressure support of 8, will not be able to tolerate full facemask currently with nasal fractures Never tobacco smoker Recommendation: Continue to monitor on selective Continues to have no active pulmonary issues at this point. Pacemaker implantation planned tomorrow. Will follow as needed. Time with Patient: Less than 30
[2023-11-24] MEDS: INSULIN REGULAR 100 UNIT/ML VIAL (IV) IV ONE (14:08)
[2023-11-24] MEDS: SODIUM ZIRCONIUM CYCLOSILICATE 10 GM PACKET PO ONE (14:08)
[2023-11-24] MEDS: DEXTROSE 50% SYRINGE 50 ML IVP ONE (14:09)
[2023-11-24 16:08] LABS: Glucose,Whole Blood 206 mg/dL (70-110)
[2023-11-24 20:03] LABS: Glucose,Whole Blood 174 mg/dL (70-110)
[2023-11-25 06:19] LABS: Glucose,Whole Blood 171 mg/dL (70-110)
[2023-11-25 09:12] LABS: ALT 14 U/L (4-34); AST 21 U/L (14-36); African American GFR (CKD) 57 (>60 ml/min/1.73 sqM); Albumin 3.9 g/dL (3.5-5.0); Alkaline Phosphatase 78 U/L (38-126); Anion Gap 6 mmol/L; Blood Urea Nitrogen 39 mg/dL (7-17); Carbon Dioxide 26 mmol/L (22-30); Chloride 106 mmol/L (98-107); Glucose 161 mg/dL (74-99); Non-African American GFR(CKD) 49 (>60 ml/min/1.73 sqM); Potassium 5.1 mmol/L (3.5-5.1); Sodium 138 mmol/L (137-145); Total Bilirubin 0.6 mg/dL (0.2-1.3); Total Protein 6.3 g/dL (6.3-8.2)
[2023-11-25] MEDS ORDERED: VANCOMYCIN 1,750 MG in SODIUM CHLORIDE 0.9% 500 ML 500 ML IVPB ONE (09:36)
[2023-11-25 10:13] LABS: Anisocytosis Slight; Basophils % (A) 0 %; Eosinophils # (A) 0.2 k/uL (0-0.7); Eosinophils % (A) 3 %; HCT 31.1 % (34.0-46.0); HGB 9.4 gm/dL (11.4-16.0); Hypochromasia Moderate; Lymphocytes # (A) 1.1 k/uL (1.0-4.8); Lymphocytes % (A) 16 %; MCH 26.2 pg (25.0-35.0); MCHC 30.1 g/dL (31.0-37.0); Monocytes # (A) 0.6 k/uL (0-1.0); Monocytes % (A) 9 %; Neutrophils # (A) 4.6 k/uL (1.3-7.7); Neutrophils % (A) 70 %; Platelet Count 164 k/uL (150-450); RBC 3.57 m/uL (3.80-5.40); RDW 18.2 % (11.5-15.5); WBC 6.5 k/uL (3.8-10.6)
--- NOTE | 2023-11-25 10:22 | P.PN ---
Subjective Progress Note Date: 11/25/23 Principal diagnosis: Bradycardia The patient is a pleasant 68-year-old female patient with morbid obesity as well as paroxysmal atrial fibrillation and sick sinus syndrome was admitted to the hospital with symptomatic bradycardia presented as syncope November 25, 2023 The patient was seen and evaluated this morning. She continues to be bradycardic. She has extensive ecchymosis on the face. The plan is to pursue permanent pacemaker later on today. Examination is remarkable for regular rhythm with a systolic murmur at the right upper sternal border and clear breathing sounds bilaterally and no carotid bruit and no edema was noted Assessment Evidence of sick sinus syndrome with bradycardia Paroxysmal atrial fibrillation Morbid obesity Multiple comorbid conditions Plan Continue the current medical regimen Avoid any AV cathleen lawson agents Proceed with permanent pacemaker later on today Objective - Vital Signs Vital signs: Vital Signs Temp 97.0 F L 11/25/23 08:00 Pulse 47 L 11/24/23 20:00 Resp 16 11/25/23 08:00 BP 171/66 11/25/23 08:00 Pulse Ox 98 11/25/23 08:00 FiO2 Intake & Output 11/24/23 11/25/23 11/25/23 18:59 06:59 18:59 Intake Total 240 Output Total 850 1000 Balance -610 -1000 Intake: Oral 240 Output: Urine 850 1000 Other: Voiding Method Toilet Toilet - Labs CBC & Chem 7: 11/25/23 07:39 11/25/23 07:39 Labs: Abnormal Lab Results - Last 24 Hours (Table) 11/24/23 11/24/23 11/24/23 Range/Units 09:57 09:57 12:08 RBC 3.55 L (3.80-5.40) m/uL Hgb 9.5 L (11.4-16.0) gm/dL Hct 31.4 L (34.0-46.0) % MCHC 30.3 L (31.0-37.0) g/dL RDW 18.3 H (11.5-15.5) % Lymphocytes # 0.9 L (1.0-4.8) k/uL Potassium 5.5 H (3.5-5.1) mmol/L BUN 37 H (7-17) mg/dL Creatinine (0.52-1.04) mg/dL Glucose 174 H (74-99) mg/dL POC Glucose (mg/dL) 167 H (70-110) mg/dL 11/24/23 11/24/23 11/24/23 Range/Units 16:06 17:23 20:02 RBC (3.80-5.40) m/uL Hgb (11.4-16.0) gm/dL Hct (34.0-46.0) % MCHC (31.0-37.0) g/dL RDW (11.5-15.5) % Lymphocytes # (1.0-4.8) k/uL Potassium 5.5 H (3.5-5.1) mmol/L BUN (7-17) mg/dL Creatinine (0.52-1.04) mg/dL Glucose (74-99) mg/dL POC Glucose (mg/dL) 206 H 174 H (70-110) mg/dL 11/25/23 11/25/23 11/25/23 Range/Units 06:18 07:39 07:39 RBC 3.57 L (3.80-5.40) m/uL Hgb 9.4 L (11.4-16.0) gm/dL Hct 31.1 L (34.0-46.0) % MCHC 30.1 L (31.0-37.0) g/dL RDW 18.2 H (11.5-15.5) % Lymphocytes # (1.0-4.8) k/uL Potassium (3.5-5.1) mmol/L BUN 39 H (7-17) mg/dL Creatinine 1.14 H (0.52-1.04) mg/dL Glucose 161 H (74-99) mg/dL POC Glucose (mg/dL) 171 H (70-110) mg/dL
[2023-11-25 11:22] LABS: Glucose,Whole Blood 156 mg/dL (70-110)
--- NOTE | 2023-11-25 12:43 | P.PN ---
Subjective Progress Note Date: 11/25/23 H&P Date: 11/21/23 Chief Complaint: Syncope, fall, shortness of breath Luz Swann is a 67 yo F with PMH significant for recent cardiac ablation, cardioversion, coronary artery disease with previous stenting, persistent atrial fibrillation, cardiomyopathy hypertension, hyperlipidemia, obesity, obstructive sleep apnea, diabetes, and cardiomyopathy, transported to the ER via EMS,status post syncope, sustaining a fall with facial injury. Patient stated she was sitting on commode, "catching her breath" before proceeding to stand up with her walker.denied lightheadedness or dizziness while sitting .Woke up on the floor with nose bleeding. cardiac ablation was on 10/31/2023, diuretics/Lasix resumed 2 weeks postprocedure per PCP. Patient reports progressive shortness of breath, gained 40 pounds in the last 3 to 4 weeks, increased lower extremity edema, decreased walking distances-only able to walk up to about 5 feet before sitting down to regain her breath. Nonproductive cough. positive orthopnea. Denies chest pain, palpitations. Troponins negative x 3. denies headache, denies blurred vision. Face CT reported fractures of the nasal bones including central bridge, possible maxillary spine fracture. Fluid levels within the maxillary sinus and opacification of the nasal passage, likely from blood. Head/cervical spine CT reported no acute fractures within the cervical spine.Spinal canal narrowing of C6-C7 due to posterior endplate spurring C5-6 and foraminal narrowing from unconvertebral joint hypertrophy. Chest x-ray reported opacity throughout right greater than left lungs representing pulmonary edema, possible infectious/inflammatory process. Procalcitonin pending. Afebrile, normal WBC. Hemoglobin 8.6, 8.9, in a patient with baseline hemoglobin of 11.7-12 ,platelets 166, 155, on Xarelto. Denies blood in stools, denies dark stools. Denies abdominal pain. Received a dose of IV push Lasix followed by oral Lasix with reported improvement in her breathing. Conversing without shortness of breath. Maintaining O2 sats in the low 90s on room air. 11/22/2023 evaluated by GI with recommendations noted-no endoscopy recommended given recent EGD and colonoscopy. Lasix discontinued yesterday. Significant improvement in edema, 24-hour I&O inaccurate, no current weight. Renal function worsening, BUN 33, creatinine 1.14. Hyzaar discontinued, Cozaar ordered-as discussed with cardiology. Telemetry sinus bradycardia, heart rate currently in the 40s, telemetry reporting 30s when sleeping; patient scheduled for pacemaker placement on Saturday.Reports lightheadedness while sitting up in chair, denies headache-reports just "achy".complains of entire body feeling achy from her recent fall outpatient. Denies chest pain, palpitations or shortness of breath. Maintaining O2 sats in the low 90s on room air. Nonproductive cough, no wheezing today. Reports abdomen significantly less bloated. Afebrile, normal WBC, hemoglobin up to 9.1, platelets 156. Blood sugars controlled. Iron studies noted, iron deficient. IV ferritin ordered. TSH 8.16, free T4 1.09, levothyroxine increased. 11/25/2023 sitting up in chair,telemetry reporting bradycardia, asymptomatic. N.p.o., scheduled for permanent pacemaker placement today. BUN 39, creatinine 1.14. Ambulated to and from bathroom, tolerated exertion well, denies lightheadedness dizziness or focal deficits. Denies headache. Minimal nasal congestion with occasional nosebleed. Reinstructed on no blowing nose. Denies chest pain, palpitations or shortness of breath. Maintaining O2 sats in the high 90s on room air. Objective - Vital Signs Vital signs: Vital Signs Temp 97.0 F L 11/25/23 08:00 Pulse 47 L 11/25/23 08:00 Resp 16 11/25/23 08:00 BP 171/66 11/25/23 08:00 Pulse Ox 98 11/25/23 08:00 FiO2 Intake & Output 11/24/23 11/25/23 11/25/23 18:59 06:59 18:59 Intake Total 240 Output Total 850 1000 Balance -610 -1000 Intake: Oral 240 Output: Urine 850 1000 Other: Voiding Method Toilet Toilet - Exam Gen: Alert and oriented x 3, sitting up in chair, obese, NAD HEENT: NC, tender bilateral periorbital /facial ecchymosis improving, conjunctiva pink, sclera anicteric. Neck: supple, no JVD or thyromegaly. Trachea midline CV: bradycardic, systolic murmur, minimal lower extremity dependent edema Lungs: Unlabored, equal air entry ,CTA. Abd: soft, non distended, nontender, positive bowel sounds Neuro: AAOx3, no focal deficit. Cranial nerves II through XII grossly intact. Skin: warm and dry - Labs CBC & Chem 7: 11/25/23 07:39 11/25/23 07:39 Labs: Abnormal Lab Results - Last 24 Hours (Table) 11/24/23 11/24/23 11/24/23 Range/Units 12:08 16:06 17:23 RBC (3.80-5.40) m/uL Hgb (11.4-16.0) gm/dL Hct (34.0-46.0) % MCHC (31.0-37.0) g/dL RDW (11.5-15.5) % Potassium 5.5 H (3.5-5.1) mmol/L BUN (7-17) mg/dL Creatinine (0.52-1.04) mg/dL Glucose (74-99) mg/dL POC Glucose (mg/dL) 167 H 206 H (70-110) mg/dL 11/24/23 11/25/23 11/25/23 Range/Units 20:02 06:18 07:39 RBC 3.57 L (3.80-5.40) m/uL Hgb 9.4 L (11.4-16.0) gm/dL Hct 31.1 L (34.0-46.0) % MCHC 30.1 L (31.0-37.0) g/dL RDW 18.2 H (11.5-15.5) % Potassium (3.5-5.1) mmol/L BUN (7-17) mg/dL Creatinine (0.52-1.04) mg/dL Glucose (74-99) mg/dL POC Glucose (mg/dL) 174 H 171 H (70-110) mg/dL 11/25/23 11/25/23 Range/Units 07:39 11:19 RBC (3.80-5.40) m/uL Hgb (11.4-16.0) gm/dL Hct (34.0-46.0) % MCHC (31.0-37.0) g/dL RDW (11.5-15.5) % Potassium (3.5-5.1) mmol/L BUN 39 H (7-17) mg/dL Creatinine 1.14 H (0.52-1.04) mg/dL Glucose 161 H (74-99) mg/dL POC Glucose (mg/dL) 156 H (70-110) mg/dL Assessment and Plan Assessment: Progressive dyspnea secondary to acute CHF exacerbation, systolic dysfunction, EF 45-50%, proBNP 4330, weight gain of 40 pounds over 3 to 4 weeks. Procalcitonin normal, 0.09. Syncope with subsequent fall, secondary to Sick sinus syndrome, sinus bradycardia, permanent pacemaker placement pending Nasal fracture, facial trauma secondary to the above Acute anemia in a patient with history of chronic anemia, secondary to traumatic fall, iron deficient. Acute renal insufficiency, multifactorial, secondary to all the above ,diuretics. Chronic persistent atrial fibrillation Recent cardiac ablation 10/31/2023 CAD, history of stenting to the LAD Hypertension Hyperlipidemia History of cardiomyopathy, EF 45% Diabetes mellitus II, hemoglobin A1c 6.6 Morbid obesity, BMI 43 Obstructive sleep apnea, uses CPAP, currently unable to wear mask secondary to nasal fracture Gait dysfunction, uses walker Plan: Continue on current medication regimen ,monitoring and symptomatic treatment. Scheduled for permanent pacemaker today. Close monitoring of renal function, CBC with repeat labs ordered for a.m. The impression and plan of care has been dictated as directed. : I performed a history and examination of this patient, discussed the same with the dictator. I agree with the dictator's note ,documented as a scribe. Any additional findings or plans will be noted.
--- NOTE | 2023-11-25 13:54 | P.PN ---
Subjective Progress Note Date: 11/25/23 Principal diagnosis: Syncope. Patient is a 68-year-old white female with past medical history significant for chronic/persistent atrial fibrillation status post cardioversion and more recent cardiac ablation, coronary artery disease with previous PCI/stent to the LAD, hypertension, hyperlipidemia, diabetes mellitus, obesity, obstructive sleep apnea. Patient has seen Dr. Pereira in the pulmonary office for her obstructive sleep apnea, but otherwise does not have any history of lung disease. She wears a CPAP at night with a pressure support of 8. Never tobacco smoker. Patient presented the emergency room yesterday evening, after a syncopal event on the toilet. She sustained a facial injury. Facial CT demonstrated fractures of the nasal bones including central bridge, and possible maxillary spine fracture. There are fluid levels within the maxillary sinus and opacification of the nasal passage, likely from blood. Also underwent CT of the brain and C-spine without contrast which did not show any acute cervical spine fractures. Incidental findings included spinal canal narrowing of C6-C7 due to posterior endplate and foraminal narrowing from vertebral joint hypertrophy. Of note, patient does have persistent chronic atrial fibrillation, which has been refractory to therapy. She did recently undergo a EP study with cardiac ablation on 10/31/2023. On arrival to the emergency room, she was noted to be bradycardic. This was a sinus bradycardia with a rate of 50 bpm, no obvious acute ischemic changes.. 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 Her travel writer is Dr. Cabrales. She also takes beta-blockers outpatient, metoprolol 25 mg p.o. daily. We were consulted as the patient has become progressively more short of breath over the last month. she has noted an associated approximate 40 pound weight gain over the last 1 month. She also endorses increased lower extremity swelling and abdominal fullness. She has been experiencing orthopnea. She does also repor tedly wake up in the middle night gasping for air. She can only tolerate her CPAP for approximately 4 hours per night. Denies any chest pain. Denies any heart palpitations. No previous syncopal events prior to this hospitalization. No seizure history. Denies any infectious-like symptoms. Chest x-ray shows cardiomegaly, opacification throughout the right greater than the left which could represent infectious/inflammatory process, however, favors pulmonary edema. NT proBNP was elevated at 4330. Most recent echocardiogram done 10/22/2023 which was a limited study. Estimated LV ejection fraction was approximately 45 to 50%. CBC on arrival: WBC count 6, hemoglobin 8.6, hematocrit 28.6, platelets 166. Patient does suffer from chronic anemia, however, hemoglobin is lower than baseline. She does take Xarelto outpatient. Denies any xu blood loss in her stool or melena. Denies any nausea, vomiting, or hematemesis. Denies any vaginal bleeding. She does have history of lower GI bleeding. Most recent colonoscopy was on 09/06/2022 which demonstrated internal hemorrhoids and diverticulosis without diverticulitis. No obvious source of GI bleeding identified at that time. BMP on arrival unremarkable. LFTs not elevated. Troponin 0.018 and 0.02 respectively. She is currently resting in bed, on room air, she is slightly tachypneic. Speaks in 2- 3 word phrases. She does have swelling of her nose and periorbital ecchymosis. Likely will not be able to tolerate her full facemask CPAP. Currently hemodynamically stable. Patient was really today on 11/22/2023, patient was seen yesterday, and I transferred the patient to the cardiac floor, seen by cardiology and she seems to have a sick sinus syndrome. Patient is now scheduled to have a pacemaker implantation by Dr. Chin next week. In the meantime the patient is relatively asymptomatic, feeling better, her beta-blockers remain on hold. Patient remains bradycardic, and at times her rate is below 45.WBC count is 5.9 hemoglobin 9.1 basic metabolic profile is normal renal profile showed a BUN of 33 creatinine 1.14 Patient was evaluated today on 11/23/2023, doing well, relatively asymptomatic, continues to have significant bradycardia, but asymptomatic. Patient is scheduled to have pacemaker implantation on Saturday. In the meantime she remains off beta-blockers. WBC count is 6.6 hemoglobin 9.5, basic metabolic profile is normal except for slightly elevated potassium of 5.5 renal profile is normal Patient was today on 11/24/2023, patient is doing well, she presented initially with syncope and collapse, patient was found to have sick sinus syndrome. She is scheduled to have a pacemaker implantation tomorrow. Pulmonary garrido the patient is doing great, continues to have no active pulmonary symptoms, and again her presentation was mostly a cardiac presentation. No cough no wheezing no shortness of breath no chest pain. WBC count is 6 hemoglobin 9.5 basic metabolic profile is normal renal profile is normal Progress note dated November 25, 2023. This is a 68-year-old female who is seen today in room 363. She is currently on room air. She is not receiving any IV fluids. The patient is to receive a pacemaker today, by cardiology. Clinically, she is resting comfortably. She denies any pulmonary complaints, and specifically denies any shortness of breath, cough, wheezing, chest tightness, or phlegm production. She also denies any chest pain or pressure. Current laboratory data includes a white count 6.5, hemoglobin 9.4, hematocrit 31.1, and a normal platelet count. Sodium 138, potassium 5.1, chlorides 106, CO2 26, BUN 39, creatinine 1.14. The patient's albumin is 3.9. Calcium is 10. Objective - Vital Signs Vital signs: Vital Signs Temp 97.0 F L 11/25/23 08:00 Pulse 53 L 11/25/23 13:26 Resp 16 11/25/23 13:26 BP 148/72 11/25/23 12:00 Pulse Ox 96 11/25/23 12:00 FiO2 Intake & Output 11/24/23 11/25/23 11/25/23 18:59 06:59 18:59 Intake Total 240 Output Total 850 1000 Balance -610 -1000 Intake: Oral 240 Output: Urine 850 1000 Other: Voiding Method Toilet Toilet - Exam No acute distress, oriented 3. HEENT examination is grossly unremarkable. Mucous membranes are moist. No oral lesions. Neck supple. Full range of motion. No adenopathy thyromegaly or neck vein distention. Cardiovascular examination reveals regular rhythm rate. S1-S2 normal. No S3 or S4. No discernible murmur noted. Lungs reveal scattered crackles. No wheezes or rhonchi. Saturations are excellent on room air. Abdomen soft bowel sounds are heard. No masses or tenderness. Extremities are intact. No cyanosis or clubbing. Mild edema noted. Skin is without rash or lesion. Neurologic examination is brief but nonfocal. - Labs CBC & Chem 7: 11/25/23 07:39 11/25/23 07:39 Labs: Abnormal Lab Results - Last 24 Hours (Table) 11/24/23 11/24/23 11/24/23 Range/Units 16:06 17:23 20:02 RBC (3.80-5.40) m/uL Hgb (11.4-16.0) gm/dL Hct (34.0-46.0) % MCHC (31.0-37.0) g/dL RDW (11.5-15.5) % Potassium 5.5 H (3.5-5.1) mmol/L BUN (7-17) mg/dL Creatinine (0.52-1.04) mg/dL Glucose (74-99) mg/dL POC Glucose (mg/dL) 206 H 174 H (70-110) mg/dL 11/25/23 11/25/23 11/25/23 Range/Units 06:18 07:39 07:39 RBC 3.57 L (3.80-5.40) m/uL Hgb 9.4 L (11.4-16.0) gm/dL Hct 31.1 L (34.0-46.0) % MCHC 30.1 L (31.0-37.0) g/dL RDW 18.2 H (11.5-15.5) % Potassium (3.5-5.1) mmol/L BUN 39 H (7-17) mg/dL Creatinine 1.14 H (0.52-1.04) mg/dL Glucose 161 H (74-99) mg/dL POC Glucose (mg/dL) 171 H (70-110) mg/dL 11/25/23 Range/Units 11:19 RBC (3.80-5.40) m/uL Hgb (11.4-16.0) gm/dL Hct (34.0-46.0) % MCHC (31.0-37.0) g/dL RDW (11.5-15.5) % Potassium (3.5-5.1) mmol/L BUN (7-17) mg/dL Creatinine (0.52-1.04) mg/dL Glucose (74-99) mg/dL POC Glucose (mg/dL) 156 H (70-110) mg/dL Assessment and Plan Assessment: Cardiac syncope, secondary to sick sinus syndrome, with anticipated pacemaker insertion. History of persistent/chronic atrial fibrillation, status post cardiac ablation, October 31, 2023. Facial trauma, secondary to syncopal episode. Fractured nasal bones, including central bridge and possibly maxillary spine fracture. Coronary artery disease with previous PCI/stenting to the LAD. Normocytic/normochromic anemia. History of essential hypertension. History of hyperlipidemia. History of diabetes mellitus. Morbid obesity. History of moderate obstructive sleep apnea, maintained on CPAP. Lifelong nontobacco user. Plan: Plan dated November 25, 2023. The patient is to have a pacemaker inserted by cardiology. Clinically, the patient is stable. She is currently on room air. She is not having any shortness of breath or difficulty breathing. She also denies any chest pain or pressure. Labs, x-rays, medications are all reviewed. We will continue to follow the patient, make recommendations along the way. Prognosis is guarded. Time with Patient: Less than 30
[2023-11-25] MEDS ORDERED: LIDOCAINE 1% INJ 10MG/ML (20 ML MDV) ONE ×3 (14:56→20:38)
[2023-11-25 16:31] LABS: Glucose,Whole Blood 152 mg/dL (70-110)
[2023-11-25] MEDS: VANCOMYCIN 1,750 MG in SODIUM CHLORIDE 0.9% 500 ML 500 ML IVPB ONE (18:51)
[2023-11-25] MEDS ORDERED: PROPOFOL 10 MG/ML 20 ML VIAL IV ONE (19:43)
[2023-11-25] MEDS ORDERED: MIDAZOLAM 2 MG/2 ML VIAL ONE (19:43)
[2023-11-25] MEDS: IV FLUID CONTINUATION 400 ML IV ONE (19:43)
[2023-11-25] MEDS ORDERED: fentaNYL (PF) 50 MCG/ML 2 ML AMP ONE (19:43)
[2023-11-25] MEDS: IOPAMIDOL-370 100ML BTL INJ ONE (20:19)
[2023-11-25] MEDS: ceFAZolin 1,000 MG in SODIUM CHLORIDE 0.9% IRRIG BTL 250 ML IRRIGATION ONE (20:20)
[2023-11-25] MEDS: LIDOCAINE 1% INJ 10MG/ML (20 ML MDV) SQ ONE ×2 (20:37→20:51)
[2023-11-25] MEDS ORDERED: ACETAMINOPHEN TAB 325 MG TAB PO PRN (22:00)
[2023-11-25] MEDS: ACETAMINOPHEN IV (For NPO) 1,000 MG in EMPTY BAG 1 BAG IVPB ONE (22:44)
[2023-11-25 22:45] LABS: Glucose,Whole Blood 127 mg/dL (70-110)
[2023-11-26 00:27] VITALS: TEMP 97.8
[2023-11-26 05:56] LABS: Glucose,Whole Blood 173 mg/dL (70-110)
--- NOTE | 2023-11-26 07:43 | XR ---
EXAMINATION TYPE: XR chest 2V DATE OF EXAM: 11/26/2023 COMPARISON: 11/20/2023 HISTORY: 68-year-old female lead placement check TECHNIQUE: PA and lateral views FINDINGS: Left anterior chest wall pacemaker generator with right atrial and right ventricular leads. Heart rem ains mild to moderately enlarged. No appreciable pneumothorax. Mild interstitial density remains low with improved aeration from prior. A trace left pleural effusion also remains. IMPRESSION: 1. Left anterior chest wall pacemaker generator with right atrial and ventricular leads. No appreciab le pneumothorax. 2. Cardiomegaly with residual mild pulmonary vascular congestion, though improved from prior. 3. Trace left pleural effusion.
[2023-11-26 08:52] VITALS: BP 152/65; PULSE 62; RESP 16
--- NOTE | 2023-11-26 11:27 | P.PN ---
Subjective Progress Note Date: 11/26/23 Principal diagnosis: Syncope. Patient is a 68-year-old white female with past medical history significant for chronic/persistent atrial fibrillation status post cardioversion and more recent cardiac ablation, coronary artery disease with previous PCI/stent to the LAD, hypertension, hyperlipidemia, diabetes mellitus, obesity, obstructive sleep apnea. Patient has seen Dr. Pereira in the pulmonary office for her obstructive sleep apnea, but otherwise does not have any history of lung disease. She wears a CPAP at night with a pressure support of 8. Never tobacco smoker. Patient presented the emergency room yesterday evening, after a syncopal event on the toilet. She sustained a facial injury. Facial CT demonstrated fractures of the nasal bones including central bridge, and possible maxillary spine fracture. There are fluid levels within the maxillary sinus and opacification of the nasal passage, likely from blood. Also underwent CT of the brain and C-spine without contrast which did not show any acute cervical spine fractures. Incidental findings included spinal canal narrowing of C6-C7 due to posterior endplate and foraminal narrowing from vertebral joint hypertrophy. Of note, patient does have persistent chronic atrial fibrillation, which has been refractory to therapy. She did recently undergo a EP study with cardiac ablation on 10/31/2023. On arrival to the emergency room, she was noted to be bradycardic. This was a sinus bradycardia with a rate of 50 bpm, no obvious acute ischemic changes.. 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 Her disc recordist is Dr. Cabrales. She also takes beta-blockers outpatient, metoprolol 25 mg p.o. daily. We were consulted as the patient has become progressively more short of breath over the last month. she has noted an associated approximate 40 pound weight gain over the last 1 month. She also endorses increased lower extremity swelling and abdominal fullness. She has been experiencing orthopnea. She does also repor tedly wake up in the middle night gasping for air. She can only tolerate her CPAP for approximately 4 hours per night. Denies any chest pain. Denies any heart palpitations. No previous syncopal events prior to this hospitalization. No seizure history. Denies any infectious-like symptoms. Chest x-ray shows cardiomegaly, opacification throughout the right greater than the left which could represent infectious/inflammatory process, however, favors pulmonary edema. NT proBNP was elevated at 4330. Most recent echocardiogram done 10/22/2023 which was a limited study. Estimated LV ejection fraction was approximately 45 to 50%. CBC on arrival: WBC count 6, hemoglobin 8.6, hematocrit 28.6, platelets 166. Patient does suffer from chronic anemia, however, hemoglobin is lower than baseline. She does take Xarelto outpatient. Denies any xu blood loss in her stool or melena. Denies any nausea, vomiting, or hematemesis. Denies any vaginal bleeding. She does have history of lower GI bleeding. Most recent colonoscopy was on 09/06/2022 which demonstrated internal hemorrhoids and diverticulosis without diverticulitis. No obvious source of GI bleeding identified at that time. BMP on arrival unremarkable. LFTs not elevated. Troponin 0.018 and 0.02 respectively. She is currently resting in bed, on room air, she is slightly tachypneic. Speaks in 2- 3 word phrases. She does have swelling of her nose and periorbital ecchymosis. Likely will not be able to tolerate her full facemask CPAP. Currently hemodynamically stable. Patient was really today on 11/22/2023, patient was seen yesterday, and I transferred the patient to the cardiac floor, seen by cardiology and she seems to have a sick sinus syndrome. Patient is now scheduled to have a pacemaker implantation by Dr. Chin next week. In the meantime the patient is relatively asymptomatic, feeling better, her beta-blockers remain on hold. Patient remains bradycardic, and at times her rate is below 45.WBC count is 5.9 hemoglobin 9.1 basic metabolic profile is normal renal profile showed a BUN of 33 creatinine 1.14 Patient was evaluated today on 11/23/2023, doing well, relatively asymptomatic, continues to have significant bradycardia, but asymptomatic. Patient is scheduled to have pacemaker implantation on Saturday. In the meantime she remains off beta-blockers. WBC count is 6.6 hemoglobin 9.5, basic metabolic profile is normal except for slightly elevated potassium of 5.5 renal profile is normal Patient was today on 11/24/2023, patient is doing well, she presented initially with syncope and collapse, patient was found to have sick sinus syndrome. She is scheduled to have a pacemaker implantation tomorrow. Pulmonary garrido the patient is doing great, continues to have no active pulmonary symptoms, and again her presentation was mostly a cardiac presentation. No cough no wheezing no shortness of breath no chest pain. WBC count is 6 hemoglobin 9.5 basic metabolic profile is normal renal profile is normal Progress note dated November 25, 2023. This is a 68-year-old female who is seen today in room 363. She is currently on room air. She is not receiving any IV fluids. The patient is to receive a pacemaker today, by cardiology. Clinically, she is resting comfortably. She denies any pulmonary complaints, and specifically denies any shortness of breath, cough, wheezing, chest tightness, or phlegm production. She also denies any chest pain or pressure. Current laboratory data includes a white count 6.5, hemoglobin 9.4, hematocrit 31.1, and a normal platelet count. Sodium 138, potassium 5.1, chlorides 106, CO2 26, BUN 39, creatinine 1.14. The patient's albumin is 3.9. Calcium is 10. Progress note dated November 26, 2023. 68-year-old female seen today in room 363. The patient is currently on room air. She is not receiving any IV fluids. She did have a pacemaker placed yesterday, November 24. Clinically, she is doing well. She still has quite a bit of facial bruising and ecchymoses. No new labs today other than a glucose of 173. Chest x-ray, following the placement of the pacemaker, shows no appreciable pneumothorax. There is evidence of cardiomegaly, and trace left-sided pleural effusion. Objective - Vital Signs Vital signs: Vital Signs Temp 97.8 F 11/26/23 08:50 Pulse 62 11/26/23 08:50 Resp 16 11/26/23 08:50 BP 152/65 11/26/23 08:50 Pulse Ox 96 11/26/23 08:50 FiO2 Intake & Output 11/25/23 11/26/23 11/26/23 18:59 06:59 18:59 Intake Total 400 200 Output Total 900 Balance -900 400 200 Intake: IV 400 20 Invasive Line 6 10 Invasive Line 7 10 Oral 0 180 Output: Urine 900 Other: Voiding Method Toilet Toilet # Voids 3 0 1 # Bowel Movements 0 1 - Exam No acute distress, oriented 3. Room air saturation 96%. HEENT examination is grossly unremarkable. Mucous membranes are moist. No oral lesions. Neck supple. Full range of motion. No adenopathy thyromegaly or neck vein distention. Cardiovascular examination reveals regular rhythm rate. S1-S2 normal. No S3 or S4. No discernible murmur noted. Heart rate is 62 bpm. Lungs reveal scattered crackles. No wheezes or rhonchi. Saturations are excellent on room air. Abdomen soft bowel sounds are heard. No masses or tenderness. Extremities are intact. No cyanosis or clubbing. Mild edema noted. Skin is without rash or lesion. Neurologic examination is brief but nonfocal. - Labs CBC & Chem 7: 11/25/23 07:39 11/25/23 07:39 Labs: Abnormal Lab Results - Last 24 Hours (Table) 11/25/23 11/25/23 11/26/23 Range/Units 16:27 22:43 05:56 POC Glucose (mg/dL) 152 H 127 H 173 H (70-110) mg/dL Assessment and Plan Assessment: Cardiac syncope, secondary to sick sinus syndrome, S/P pacemaker implantation, on November 25, 2023. History of persistent/chronic atrial fibrillation, status post cardiac ablation, October 31, 2023. Facial trauma, secondary to syncopal episode. Fractured nasal bones, including central bridge and possibly maxillary spine fracture. Coronary artery disease with previous PCI/stenting to the LAD. Normocytic/normochromic anemia. History of essential hypertension. History of hyperlipidemia. History of diabetes mellitus. Morbid obesity. History of moderate obstructive sleep apnea, maintained on CPAP. Lifelong nontobacco user. Plan: Plan dated November 25, 2023. The patient is to have a pacemaker inserted by cardiology. Clinically, the patient is stable. She is currently on room air. She is not having any shortness of breath or difficulty breathing. She also denies any chest pain or pressure. Labs, x-rays, medications are all reviewed. We will continue to follow the patient, make recommendations along the way. Prognosis is guarded. Plan dated November 26, 2023. The patient is resting comfortably in room 363. The patient is on room air. She is not receiving any IV fluids. A pacemaker was placed yesterday, November 24. The patient has quite a bit of facial bruising and ecchymoses. She denies any shortness of breath, difficulty breathing, coughing, wheezing, chest tightness, chest pain, chest pressure, GI or issues. Labs, x-rays, and medications are reviewed. Prognosis is guarded. The patient is being evaluated for possible discharge in the near future. Time with Patient: Less than 30
--- NOTE | 2023-11-26 13:21 | P.PN ---
Subjective Progress Note Date: 11/26/23 Bradycardia The patient is a pleasant 68-year-old female patient with morbid obesity as well as paroxysmal atrial fibrillation and sick sinus syndrome was admitted to the hospital with symptomatic bradycardia presented as syncope November 25, 2023 The patient was seen and evaluated this morning. She continues to be bradycardic. She has extensive ecchymosis on the face. The plan is to pursue permanent pacemaker later on today. Examination is remarkable for regular rhythm with a systolic murmur at the right upper sternal border and clear breathing sounds bilaterally and no carotid bruit and no edema was noted 11/25 Yesterday, patient underwent pacemaker implantation. Interrogation has been completed and pacemaker is functioning well. Chest x-ray shows no complications from the procedure. Blood pressure 152/65, heart rate 62, pulse ox 96% on room air. Examination: Regular rhythm and systolic murmur at the right upper sternal border, lung sounds are clear bilaterally, no carotid bruit, no lower extremity edema. Assessment Evidence of sick sinus syndrome with bradycardia Paroxysmal atrial fibrillation Morbid obesity Multiple comorbid conditions Plan Continue the current medical regimen Patient is cleared for discharge and may follow-up in the office in 1 to 2 weeks. Nurse practitioner note has been reviewed, I agree with documented findings and plan of care. Patient was seen and examined. Objective - Vital Signs Vital signs: Vital Signs Temp 97.8 F 11/25/23 22:40 Pulse 50 L 11/25/23 16:00 Resp 18 11/26/23 03:45 BP 148/70 11/26/23 03:45 Pulse Ox 94 L 11/26/23 03:45 FiO2 Intake & Output 11/25/23 11/26/23 11/26/23 18:59 06:59 18:59 Intake Total 400 Output Total 900 Balance -900 400 Intake: IV 400 Oral 0 Output: Urine 900 Other: Voiding Method Toilet # Voids 3 0 # Bowel Movements 0 - Labs CBC & Chem 7: 11/25/23 07:39 11/25/23 07:39 Labs: Abnormal Lab Results - Last 24 Hours (Table) 11/25/23 11/25/23 11/25/23 Range/Units 07:39 07:39 11:19 RBC 3.57 L (3.80-5.40) m/uL Hgb 9.4 L (11.4-16.0) gm/dL Hct 31.1 L (34.0-46.0) % MCHC 30.1 L (31.0-37.0) g/dL RDW 18.2 H (11.5-15.5) % BUN 39 H (7-17) mg/dL Creatinine 1.14 H (0.52-1.04) mg/dL Glucose 161 H (74-99) mg/dL POC Glucose (mg/dL) 156 H (70-110) mg/dL 11/25/23 11/25/23 11/26/23 Range/Units 16:27 22:43 05:56 RBC (3.80-5.40) m/uL Hgb (11.4-16.0) gm/dL Hct (34.0-46.0) % MCHC (31.0-37.0) g/dL RDW (11.5-15.5) % BUN (7-17) mg/dL Creatinine (0.52-1.04) mg/dL Glucose (74-99) mg/dL POC Glucose (mg/dL) 152 H 127 H 173 H (70-110) mg/dL
--- NOTE | 2023-11-26 17:27 | P.EPPROC ---
- EP Procedure Note Electrophysiology Procedure Note: Diagnosis Symptomatic bradycardia, unprovoked, no triggering factors Presenting with syncope Persistent atrial fibrillation status post recent A-fib ablation Procedure Dual-chamber pacemaker implantation with conduction system pacing (left bundle pacing) Left upper extremity venogram Details Patient was brought to the EP lab in a fasting state. Written informed consent was obtained prior to the procedure. Conscious sedation provided by WAITER/WAITRESS COCKTA[employer] LOUNGE. IV antibiotics administered. Local anesthesia administered. A 4 cm incision made in the pectoral area. Subfascial pocket made. Venous accesses obtained Venous sheaths placed. Leads placed in the right heart. 2 sets of pacing cables were used; one for backup temporary pacing and the other for assessment of current of injury and signal analysis. A 52 cm atrial pacing lead was first positioned in the RV apex for temporary pac ing during mapping and conduction system pacing Thresholds were interrogated and backup high output pacing was provided This atrial lead was then removed from the right ventricle and later positioned in the right atrial appendage and the permanent lead A deflected sheath was prepped. A coronary sinus decapolar catheter was placed within this sheath. The catheter along with the sheath was then passed into the right heart, the catheter was prolapsed across the tricuspid valve, into the right ventricle and then further into the right ventricular outflow tract across the pulmonic valve into the pulmonary artery. This sheath was slid over this decapolar catheter into the RVOT. Thereafter the catheter last sheath assembly was withdrawn from the RVOT along the septum to the mid septal area. The sheath was appropriately to to map the right ventricular aspect of the septum. The decapolar catheter was withdrawn, the sheath flushed again and the screw-in pacing lead placed within the sheath. Further detailed unipolar pace-mapping of the septum was performed and once the appropriate based morphology was obtained on lead V1, the lead was screwed into the septum. The lead was screwed in 4-5 returns at a time while monitoring the current of injury, the pacing impedance changes and the paced QRS morphology. The stimulus to peak of V6 QRS was measured at each step. Once a QR or rSR pattern of paced QRS in lead V1 was obtained, a left bundle signal was sought. Impedance was measured and thresholds were measured. An impedance drop of 100-200 ohms but above 550 ohms was targeted along with an unchanged vector of the current of injury signal. The final positioning was based on the QRS morphology in lead V1 and a short stimulus to peak of the V6 QRS of less than 90 ms. The sheath was withdrawn, stability of the pacing lead deep in the septum was confirmed on TILLEY and JONATAN views and the sheath was slipped and an adequate heel was provided for the lead. Unipolar and bipolar electrogram morphology obtained Atrial lead positioned in the right atrial appendage. Sensing, thresholds and impedances measured following positioning and securing the lead in the right atrial appendage Left bundle lead parameters: Pacing impedance 608 ohms, R waves 10 mV, pacing threshold 0.5 V at 0.4 ms Stimulus-peak of V6 less than 67 ms Right bundle branch block paced pattern in lead V1 with a QRS width of 140 ms Medtronic model #3830-lead Atrial lead parameters Medtronic 52 cm lead. 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
--- NOTE | 2023-11-28 11:47 | P.DS ---
Providers Date of admission: 11/20/23 21:09 Expected date of discharge: 11/28/23 Attending physician: Forest Moore MD Consults: 11/20/23 22:55 Consult Physician Urgent Consulting Provider: Byron Pereira Consult Reason/Comments: Shortness Of Breath Do you want consulting provider notified?: Yes 11/20/23 23:48 Consult Physician Urgent Consulting Provider: Richie Kimbrough Consult Reason/Comments: CHF; syncope Do you want consulting provider notified?: Yes Primary care physician: Forest Moore MD Hospital Course: Final Diagnosis: Progressive dyspnea secondary to acute CHF exacerbation, systolic dysfunction, EF 45-50%, proBNP 4330, weight gain of 40 pounds over 3 to 4 weeks. Procalcitonin normal, 0.09. Syncope with subsequent fall, secondary to Sick sinus syndrome, sinus bradycardia, status post permanent pacemaker placement implantation Nasal fracture, facial trauma secondary to the above Acute anemia in a patient with history of chronic anemia, secondary to traumatic fall, iron deficient. Acute renal insufficiency, multifactorial, secondary to all the above ,diuretics. Chronic paroxysmal atrial fibrillation Recent cardiac ablation 10/31/2023 CAD, history of stenting to the LAD Hypertension Hyperlipidemia History of cardiomyopathy, EF 45% Diabetes mellitus II, hemoglobin A1c 6.6 Morbid obesity, BMI 43 Obstructive sleep apnea, uses CPAP, currently unable to wear mask secondary to nasal fracture Gait dysfunction, uses walker Hospital course:Luz Swann is a 67 yo F with PMH significant for recent cardiac ablation, cardioversion, coronary artery disease with previous stenting, persistent atrial fibrillation, cardiomyopathy hypertension, hyperlipidemia, obesity, obstructive sleep apnea, diabetes, and cardiomyopathy, transported to the ER via EMS,status post syncope, sustaining a fall with facial injury. Patient stated she was sitting on commode, "catching her breath" before proceeding to stand up with her walker.denied lightheadedness or dizziness while sitting .Woke up on the floor with nose bleeding. cardiac ablation was on 10/31/2023, diuretics/Lasix resumed 2 weeks postprocedure per PCP. Patient reports progressive shortness of breath, gained 40 pounds in the last 3 to 4 weeks, increased lower extremity edema, decreased walking distances-only able to walk up to about 5 feet before sitting down to regain her breath. Nonproductive cough. positive orthopnea. Denies chest pain, palpitations. Troponins negative x 3. denies headache, denies blurred vision. Face CT reported fractures of the nasal bones including central bridge, possible maxillary spine fracture. Fluid levels within the maxillary sinus and opacification of the nasal passage, likely from blood. Head/cervical spine CT reported no acute fractures within the cervical spine.Spinal canal narrowing of C6-C7 due to posterior endplate spurring C5-6 and foraminal narrowing from unconvertebral joint hypertrophy. Chest x-ray reported opacity throughout right greater than left lungs representing pulmonary edema, possible infectious/inflammatory process. Procalcitonin pending. Afebrile, normal WBC. Hemoglobin 8.6, 8.9, in a patient with baseline hemoglobin of 11.7-12 ,platelets 166, 155, on Xarelto. Denies blood in stools, denies dark stools. Denies abdominal pain. Received a dose of IV push Lasix followed by oral Lasix with reported improve ment in her breathing. Conversing without shortness of breath. Maintaining O2 sats in the low 90s on room air. 11/22/2023 evaluated by GI with recommendations noted-no endoscopy recommended given recent EGD and colonoscopy. Lasix discontinued yesterday. Significant improvement in edema, 24-hour I&O inaccurate, no current weight. Renal function worsening, BUN 33, creatinine 1.14. Hyzaar discontinued, Cozaar ordered-as discussed with cardiology. Telemetry sinus bradycardia, heart rate currently in the 40s, telemetry reporting 30s when sleeping; patient scheduled for pacemaker placement on Saturday.Reports lightheadedness while sitting up in chair, denies headache-reports just "achy".complains of entire body feeling achy from her recent fall outpatient. Denies chest pain, palpitations or shortness of breath. Maintaining O2 sats in the low 90s on room air. Nonproductive cough, no wheezing today. Reports abdomen significantly less bloated. Afebrile, normal WBC, hemoglobin up to 9.1, platelets 156. Blood sugars controlled. Iron studies noted, iron deficient. IV ferritin ordered. TSH 8.16, free T4 1.09, levothyroxine increased. 11/25/2023 sitting up in chair,telemetry reporting bradycardia, asymptomatic. N.p.o., scheduled for permanent pacemaker placement today. BUN 39, creatinine 1.14. Ambulated to and from bathroom, tolerated exertion well, denies lightheadedness dizziness or focal deficits. Denies headache. Minimal nasal congestion with occasional nosebleed. Reinstructed on no blowing nose. Denies chest pain, palpitations or shortness of breath. Maintaining O2 sats in the high 90s on room air. Yesterday underwent pacemaker implantation, tolerated procedure well. Device interrogated and cleared by cardiology. Chest x-ray post pacemaker implantation reported no appreciable pneumothorax -cleared by pulmonary. Denies chest pain, palpitations or shortness of breath. Ambulating, tolerating exertion well. Denies lightheadedness dizziness or focal deficits. Patient will be discharged home today in a stable condition with guarded prognosis. The impression and plan of care has been dictated as directed. : I performed a history and examination of this patient, discussed the same with the dictator. I agree with the dictator's note ,documented as a scribe. Any additional findings or plans will be noted. Patient Condition at Discharge: Stable Plan - Discharge Summary Discharge Rx Participant: No New Discharge Prescriptions: New Ferrous Sulfate [Iron (65 MG Elemental)] 325 mg PO BID-W/MEALS tab hydroCHLOROthiazide [Hydrodiuril] 25 mg PO DAILY #30 tab Continue Omeprazole 20 mg PO HS Rivaroxaban [Xarelto] 20 mg PO W/SUPPER allopurinoL [Zyloprim] 300 mg PO DAILY metFORMIN HCL [Glucophage] 1,000 mg PO BID oxyBUTYnin chloride [Ditropan] 5 mg PO DAILY Cholecalciferol [Vitamin D3 (25 Mcg = 1000 Iu)] 25 mcg PO DAILY Pregabalin [Lyrica] 150 mg PO TID Cetirizine HCl [Zyrtec] 10 mg PO DAILY Insulin Aspart [NovoLOG Flexpen] See Protocol SQ PC-TID HYDROcodone/APAP 10-325MG [[place] 10-325] 1 tab PO Q6HR PRN PRN Reason: Pain Atorvastatin [Lipitor] 20 mg PO HS Ferrous Sulfate [Iron (65 MG Elemental)] 325 mg PO DAILY Empagliflozin [Jardiance] 10 mg PO DAILY Tamsulosin [Flomax] 0.4 mg PO PC-BRKFST 30 Days #30 cap Levothyroxine Sodium [Synthroid] 50 mcg PO DAILY@0630 30 Days #30 tab Discontinued Insulin Glargine,Hum.rec.anlog [Lantus Solostar Pen] 20 - 40 unit SQ HS Losartan-Hctz 50-12.5 mg [Hyzaar 50-12.5] 1 tab PO DAILY Metoprolol Succinate [Metoprolol Succinate ER] 25 mg PO DAILY Aspirin 81 mg PO DAILY 30 Days #30 tab Spironolactone [Aldactone] 25 mg PO DAILY Furosemide [Lasix] 40 mg PO DAILY No Action Nitroglycerin Sl Tabs [Nitrostat] 0.4 mg SUBLINGUAL Q5M PRN #50 tab PRN Reason: Chest Pain Discharge Medication List Omeprazole 20 mg PO HS 06/04/16 [History] Rivaroxaban [Xarelto] 20 mg PO W/SUPPER 06/04/16 [History] allopurinoL [Zyloprim] 300 mg PO DAILY 06/04/16 [History] metFORMIN HCL [Glucophage] 1,000 mg PO BID 04/29/20 [History] Cholecalciferol [Vitamin D3 (25 Mcg = 1000 Iu)] 25 mcg PO DAILY 09/03/22 [History] oxyBUTYnin chloride [Ditropan] 5 mg PO DAILY 09/03/22 [History] Pregabalin [Lyrica] 150 mg PO TID 11/17/22 [History] Nitroglycerin Sl Tabs [Nitrostat] 0.4 mg SUBLINGUAL Q5M PRN #50 tab 03/09/23 [Rx] Cetirizine HCl [Zyrtec] 10 mg PO DAILY 04/11/23 [History] Empagliflozin [Jardiance] 10 mg PO DAILY 04/11/23 [History] Ferrous Sulfate [Iron (65 MG Elemental)] 325 mg PO DAILY 04/11/23 [History] Atorvastatin [Lipitor] 20 mg PO HS 10/22/23 [History] HYDROcodone/APAP 10-325MG [[place] 10-325] 1 tab PO Q6HR PRN 10/22/23 [History] Insulin Aspart [NovoLOG Flexpen] See Protocol SQ PC-TID 10/22/23 [History] Levothyroxine Sodium [Synthroid] 50 mcg PO DAILY@0630 30 Days #30 tab 10/26/23 [Rx] Tamsulosin [Flomax] 0.4 mg PO PC-BRKFST 30 Days #30 cap 10/26/23 [Rx] Ferrous Sulfate [Iron (65 MG Elemental)] 325 mg PO BID-W/MEALS tab 11/26/23 [Rx] hydroCHLOROthiazide [Hydrodiuril] 25 mg PO DAILY #30 tab 11/26/23 [Rx] Follow up Appointment(s)/Referral(s): Sorin Cabrales MD [Medical Doctor] - 12/03/23 4:00 pm (Follow up with device clinic for check. ) Forest Moore MD [Primary Care Provider] - 11/29/23 10:30 am Adina Bailon MD [STAFF PHYSICIAN] - 12/25/23 2:00 pm (Please arrive 15 minutes early) Ambulatory/Diagnostic Orders: Complete Blood Count w/diff [LAB.AMB] Time Frame: 3 Days, Location: None Selected Patient Instructions/Handouts: Pacemaker (GEN) Discharge Disposition: HOME SELF-CARE
== END 2023-11-26 11:46 | disposition home or self-care (01) | DRG 242 ==
LOC: EC 17:47 → 6NMEDSUR 21:09 → 3SCARD 11-21 16:29
PROVIDERS: ADMIT Family Medicine; ATTEND Family Medicine
PROC: 05H933Z Insertion of Infusion Device into Right Brachial Vein, Percutaneous Approach (ICD-10-PCS; 2023-11-22)
PROC: 05HA33Z Insertion of Infusion Device into Left Brachial Vein, Percutaneous Approach (ICD-10-PCS; 2023-11-22)
PROC: 0JH606Z Insertion of Pacemaker, Dual Chamber into Chest Subcutaneous Tissue and Fascia, Open Approach (ICD-10-PCS; principal; 2023-11-26)
PROC: 02H63JZ Insertion of Pacemaker Lead into Right Atrium, Percutaneous Approach (ICD-10-PCS; 2023-11-26)
PROC: 02HK3JZ Insertion of Pacemaker Lead into Right Ventricle, Percutaneous Approach (ICD-10-PCS; 2023-11-26)
PROC: B51N1ZZ Fluoroscopy of Left Upper Extremity Veins using Low Osmolar Contrast (ICD-10-PCS; 2023-11-26)
DX: I11.0 Hypertensive heart disease with heart failure (principal); I50.23 Acute on chronic systolic (congestive) heart failure; I48.19 Other persistent atrial fibrillation; N17.9 Acute kidney failure, unspecified; Z68.41 Body mass index [BMI] 40.0-44.9, adult; D64.9 Anemia, unspecified; I42.9 Cardiomyopathy, unspecified; E66.01 Morbid (severe) obesity due to excess calories; E86.0 Dehydration; G47.33 Obstructive sleep apnea (adult) (pediatric); S02.2XXA Fracture of nasal bones, initial encounter for closed fracture; D50.9 Iron deficiency anemia, unspecified; E87.5 Hyperkalemia; I49.5 Sick sinus syndrome; I25.10 Atherosclerotic heart disease of native coronary artery without angina pectoris; I45.10 Unspecified right bundle-branch block; K57.30 Diverticulosis of large intestine without perforation or abscess without bleeding; Z79.890 Hormone replacement therapy; W19.XXXA Unspecified fall, initial encounter; R00.1 Bradycardia, unspecified; R55 Syncope and collapse; M48.02 Spinal stenosis, cervical region; R29.6 Repeated falls; S00.83XA Contusion of other part of head, initial encounter; Z79.01 Long term (current) use of anticoagulants; Z79.82 Long term (current) use of aspirin; Z79.84 Long term (current) use of oral hypoglycemic drugs; Z79.899 Other long term (current) drug therapy; E78.5 Hyperlipidemia, unspecified; Z90.710 Acquired absence of both cervix and uterus; Z95.5 Presence of coronary angioplasty implant and graft; Z96.653 Presence of artificial knee joint, bilateral; Z90.49 Acquired absence of other specified parts of digestive tract
CPT/HCPCS: 33208; 36410; 36415; 70450; 70486; 71045; 71046; 72125; 76937; 80048; 80053; 82607; 82728; 82746; 83036; 83540; 83550; 83605; 83735; 83880; 84100; 84132; 84145; 84439; 84443; 84484; 85025; 85610; 85730; 93005; 94760; 96360; 96361; 99291

== ENCOUNTER → 2024-01-30 | Outpatient (CLI) | payer MEDICARE | END | disposition home or self-care (01) | LOC: LABWHC1 15:23 | PROVIDERS: ATTEND Student in an Organized Health Care Education/Training Program | DX: D64.9 Anemia, unspecified | CPT/HCPCS: 36415; 80053; 80061; 83036; 83880; 85027 ==

== ENCOUNTER → 2024-02-10 | Outpatient (CLI) | payer MEDICARE ==
[~2024-02-10] MED LIST changes: -LACTATED RINGERS 1,000 ML IV SCH; -LIDOCAINE 1% (10MG/ML) FOR IV START INTRADERMA PRN; +REGADENOSON 0.4 MG/5 ML SYRINGE IV ONE
--- NOTE | 2024-03-04 17:04 | CA ---
Lexiscan Nuclear Stress Test Report Name: Luz Swann Exam Date: 02/10/2024 10:31 Exam Location: [facility] Stress Ht (in): 66 Wt (lb): 250 BSA: 2.20 Ordering Phys: Referring Phys: PAMELA DON Technologist: Delgado Danielson Age: 68 Gender: F : 1955 Procedure CPT: Indications: ICD-10 Codes: Patient History: Syncope, Shortness of breath, hyperension and family history of heart disease. Medications: Meds past 24 hrs: Pretest Chest Pain: STRESS TEST Lexiscan Protocol Exercise Duration (min:sec): 02:[address] Depressions (mm): Angina Score: Zamora Score: Resting HR (bpm): 61 Peak HR (bpm): 65 Resting BP (mmHg): 112 / 73 Peak BP (mmHg): 125 / 43 MPHR: 150 Target HR: 128 % MPHR: 43 METS: 1.0 Total Dose: Peak Dose: Atropine: Double Product: 8125 BP Response: Stress Termination: Infusion complete Stress Symptoms: No symptoms Stress Summary: ECG ANALYSIS Resting ECG: Atrial paced. No arrhythmias. Stress ECG: No ECG changes from baseline with Lexiscan infusion. CONCLUSIONS No ECG evidence of ischemia with Lexiscan infusion. Nuclear test results to follow. Dr. Christy Forbes MD (Electronically Signed) Final Date: 10 February 2024 11:44
--- NOTE | 2024-03-11 13:25 | NM ---
Patient: Luz Swann Ordering Physician: Unknown, Unknown ID: [id number] Phone, Pager: Phone: N/A Pager: N/A : 1955 Age/Gender: 68Y, F Primary Location: N/A Procedure: Myocardial Perfusion Study Date: 02/10/2024 9:31:21 AM EXAMINATION TYPE: NM myocardial SPECT single DATE OF EXAM: 02/11/2024 COMPARISON: NONE CLINICAL INDICATION: Unknown, old with history of ; Following administration of 9.9mCi Tc99m Sestimibi at 847 rest. 25.1mCi Tc99m Sestimibi at 1034 stres s. FINDINGS: Calculated ejection fraction is 51%. Large area of remote insult anterior wall. No evidence for rever sible ischemia. IMPRESSION: Large area of remote insult anterior wall. No evidence for reversible ischemia.
== END | disposition home or self-care (01) ==
LOC: RADNMMAIN 08:30
PROVIDERS: ATTEND Family Medicine
DX: R07.9 Chest pain, unspecified (principal)
CPT/HCPCS: 93017; 78452; A9500; J2785

== ENCOUNTER 2024-04-29 19:58 | Inpatient (IN) | payer MEDICARE ==
[2024-04-29] MEDS: ONDANSETRON 4 MG/2 ML VIAL IVP STA (20:43)
[2024-04-29 20:48] LABS: Anisocytosis Slight; Basophils % (A) 0 %; Eosinophils # (A) 0.1 k/uL (0-0.7); Eosinophils % (A) 1 %; HCT 32.8 % (34.0-46.0); HGB 10.2 gm/dL (11.4-16.0); Hypochromasia Slight; Lymphocytes # (A) 0.5 k/uL (1.0-4.8); Lymphocytes % (A) 9 %; MCH 26.3 pg (25.0-35.0); MCHC 31.1 g/dL (31.0-37.0); MCV 84.6 fL (80.0-100.0); Mean Platelet Volume 9.2; Microcytosis Slight; Monocytes # (A) 0.6 k/uL (0-1.0); Monocytes % (A) 9 %; Neutrophils # (A) 4.8 k/uL (1.3-7.7); Neutrophils % (A) 79 %; Platelet Count 124 k/uL (150-450); RBC 3.88 m/uL (3.80-5.40); RDW 19.3 % (11.5-15.5); WBC 6.1 k/uL (3.8-10.6)
[2024-04-29] MEDS: ACETAMINOPHEN TAB 500 MG TAB PO STA (20:49)
[2024-04-29] MEDS: SODIUM CHLORIDE 0.9% 500 ML 500 ML IV STA (20:51)
[2024-04-29] MEDS: methylPREDNISolone SOD SUCCI 125 MG/2 ML VIAL IV STA (20:51)
[2024-04-29 20:58] LABS: ALT 30 U/L (4-34); AST 39 U/L (14-36); African American GFR (CKD) 49 (>60 ml/min/1.73 sqM); Albumin 4.2 g/dL (3.5-5.0); Alkaline Phosphatase 74 U/L (38-126); Anion Gap 8 mmol/L; Blood Urea Nitrogen 56 mg/dL (7-17); Calcium 9.2 mg/dL (8.4-10.2); Carbon Dioxide 24 mmol/L (22-30); Chloride 105 mmol/L (98-107); Glucose 148 mg/dL (74-99); INR 1.1 (<1.2); Magnesium 1.8 mg/dL (1.6-2.3); Non-African American GFR(CKD) 43 (>60 ml/min/1.73 sqM); Partial Thromboplastin Time 31.9 sec (22.0-30.0); Prothrombin Time 11.6 sec (10.0-12.5); Sodium 137 mmol/L (137-145); Total Bilirubin 0.4 mg/dL (0.2-1.3); Total Protein 6.9 g/dL (6.3-8.2)
[2024-04-29] MEDS: IPRATROPIUM-ALBUTEROL 3 ML NEB INHALATION STA (21:21)
--- NOTE | 2024-04-29 21:55 | XR ---
EXAMINATION TYPE: XR chest 2V DATE OF EXAM: 04/29/2024 9:16 PM COMPARISON: Chest radiographs from 11/26/2023 CLINICAL INDICATION: Female, 68 years old with history of Weakness; TECHNIQUE: XR chest 2V Frontal and lateral views of the chest. FINDINGS: Lungs/Pleura: There is no evidence of pleural effusion, focal consolidation, or pneumothorax. Pulmonary vascularity: Pulmonary vascular congestion. Heart/mediastinum: Cardiomediastinal silhouette is enlarged and stable. Two lead cardiac conduction d evice overlying the left hemithorax with lead tips projecting over the right ventricle and right atri um. Musculoskeletal: No acute osseous pathology. IMPRESSION: Cardiomegaly and mild pulmonary vascular congestion. Correlate with BNP for congestive heart failure. [facility], , 04/29/2024 9:53 PM
--- NOTE | 2024-04-29 22:03 | ED ---
General Adult HPI - General Chief complaint: Weakness Stated complaint: flu-like symptoms Time Seen by Provider: 04/29/24 20:15 Source: patient, EMS, RN notes reviewed, old records reviewed Mode of arrival: EMS - History of Present Illness Initial comments: Patient is a 68-year-old female who presents emergency department complaining of weakness. Has a history of A-fib, CAD, diabetes, hypertension, hyperlipidemia, COPD, CHF. Endorses some mild shortness of breath. States she has been dealing with upper respiratory symptoms for 1 month but worse over the last 1 to 2 days. Noticed fever. Denies chest pain, abdominal pain, nausea, vomiting, diarrhea. No acute complaints at this time. Endorses a cough however minimally productive at this time. Does endorse wheezing. Presents for further evaluation at this time. - Related Data Home Medications Medication Instructions Recorded Confirmed Omeprazole 20 mg PO HS 06/04/16 04/29/24 Rivaroxaban [Xarelto] 20 mg PO W/SUPPER 06/04/16 04/29/24 allopurinoL [Zyloprim] 300 mg PO DAILY 06/04/16 04/29/24 Cholecalciferol [Vitamin D3 (25 25 mcg PO DAILY 09/03/22 04/29/24 Mcg = 1000 Iu)] oxyBUTYnin chloride [Ditropan] 5 mg PO DAILY 09/03/22 04/29/24 Pregabalin [Lyrica] 150 mg PO TID 11/17/22 04/29/24 Cetirizine HCl [Zyrtec] 10 mg PO DAILY 04/11/23 04/29/24 Empagliflozin [Jardiance] 10 mg PO DAILY 04/11/23 04/29/24 Ferrous Sulfate [Iron (65 MG 325 mg PO DAILY 04/11/23 04/29/24 Elemental)] HYDROcodone/APAP 10-325MG [[place] 1 tab PO QID 10/22/23 04/29/24 10-325] Insulin Aspart [NovoLOG Flexpen] 10 - 12 units SQ PC-TID 10/22/23 04/29/24 Amitriptyline HCl [Elavil] 10 mg PO HS 04/29/24 04/29/24 Atorvastatin [Lipitor] 40 mg PO HS 04/29/24 04/29/24 Azelastine HCl [Astelin Nasal 1 spray EA NOSTRIL BID 04/29/24 04/29/24 [place]] Clopidogrel [Plavix] 75 mg PO DAILY 04/29/24 04/29/24 Furosemide [Lasix] 40 mg PO DAILY 04/29/24 04/29/24 Losartan/Hydrochlorothiazide 1 tab PO DAILY 04/29/24 04/29/24 [Losartan-Hctz 100-25 mg Tab] Metoprolol Succinate [Metoprolol 25 mg PO DAILY 04/29/24 04/29/24 Succinate ER] Spironolactone [Aldactone] 25 mg PO DAILY 04/29/24 04/29/24 Tirzepatide [Mounjaro] 10 mg SQ FR 04/29/24 04/29/24 metFORMIN HCL [Glucophage] 500 mg PO BID 04/29/24 04/29/24 Previous Rx's Medication Instructions Recorded Nitroglycerin Sl Tabs [Nitrostat] 0.4 mg SUBLINGUAL Q5M PRN #50 tab 03/09/23 Levothyroxine Sodium [Synthroid] 50 mcg PO DAILY@0630 30 Days #30 10/26/23 tab Tamsulosin [Flomax] 0.4 mg PO PC-BRKFST 30 Days #30 cap 10/26/23 Allergies Allergy/AdvReac Type Severity Reaction Status Date / Time No Known Allergies Allergy Verified 04/29/24 20:50 Review of Systems ROS Statement: Those systems with pertinent positive or pertinent negative responses have been documented in the HPI. Review of Systems: CONST: Endorses fever EYES: Denies blurry vision ENT: Endorses nasal congestion, cough C/V: Denies Chest pain RESP: Denies shortness of breath GI: Denies abdominal pain : Denies dysuria SKIN: Denies rash. MSK: Denies joint pain. NEURO: Denies headache ROS Other: All systems not noted in ROS Statement are negative. Past Medical History Past Medical History: Atrial Fibrillation, Coronary Artery Disease (CAD), Diabetes Mellitus, GERD/Reflux, GI Bleed, Hyperlipidemia, Hypertension, Osteoarthritis (OA) Additional Past Medical History / Comment(s): See Dr Cabrales's H&P. see dr garcia's H & P History of Any Multi-Drug Resistant Organisms: None Reported Past Surgical History: Appendectomy, Section, Cholecystectomy, Heart Catheterization With Stent, Hysterectomy, Joint Replacement, Orthopedic Surgery Additional Past Surgical History / Comment(s): Bilateral carpal tunnel, bilateral total knee replacements, colonoscopy, EGD. Past Anesthesia/Blood Transfusion Reactions: Previous Problems w/ Anesthesia Additional Past Anesthesia/Blood Transfusion Reaction / Comment(s): Had spinal fluid leak w/ prior spinal for knee surgery-stated was told not to have spinals. No problems with blood transfusion received 30-40 yrs ago. Date of Last Stent Placement:: 2022 Past Psychological History: No Psychological Hx Reported Smoking Status: Never smoker Past Alcohol Use History: None Reported Past Drug Use History: None Reported - Past Family History Mother Family Medical History: No Reported History General Exam - General Exam Comments Initial Comments: General: Appears in no acute distress. Febrile. HEAD: Normal with no signs of head trauma. EYES: PERRLA, EOMI, conjunctiva normal, no discharge. ENT: Hearing grossly intact, normal oropharynx. RESPIRATORY: Bilateral end expiratory wheezing. Mild hypoxia on room air. When sleeping, does drop down into the 80%. Corrected on 2 L nasal cannula oxygen. C/V: Regular rate and rhythm. S1 and S2 auscultated, no edema, peripheral pulses 2+ and intact throughout ABD: Abd is soft, nontender, nondistended EXT: Normal range of motion, no obvious deformity SKIN: No rashes or lesions observed on exposed skin. NEURO: Alert and oriented x 4.Generalized weakness. No focal deficits. Course Vital Signs 04/29/24 04/29/24 04/29/24 19:59 21:21 21:34 Temperature 101 F H Pulse Rate 74 62 64 Respiratory 16 Rate Blood Pressure 140/71 O2 Sat by Pulse 92 L Oximetry 04/29/24 21:38 Temperature 98.8 F Pulse Rate 62 Respiratory 18 Rate Blood Pressure 126/63 O2 Sat by Pulse 96 Oximetry Medical Decision Making - Medical Decision Making Was pt. sent in by a medical professional or institution (, PA, SLEEPING BAG FILLER, urgent care, hospital, or senior care...) When possible be specific @ -No Did you speak to anyone other than the patient for history (EMS, parent, family, police, friend...)? What history was obtained from this source @ -No Did you review nursing and triage notes (agree or disagree)? Why? @ -I reviewed and agree with nursing and triage notes Were old charts reviewed (outside hosp., previous admission, EMS record, old EKG, old radiological studies, urgent care reports/EKG's, senior care records)? Report findings @ -No old charts were reviewed Differential Diagnosis (chest pain, altered mental status, abdominal pain women, abdominal pain men, vaginal bleeding, weakness, fever, dyspnea, syncope, headache, dizziness, GI bleed, back pain, seizure, CVA, palpatations, mental health, musculoskeletal)? @ -COVID, flu, RSV, pneumonia, COPD. This list is not all inclusive. EKG interpreted by me (3pts min.). @ -As above X-rays interpreted by me (1pt min.). @ -Chest x-ray reveals mild pulmonary vascular congestion but no focal pneumonia. CT interpreted by me (1pt min.). @ -None done U/S interpreted by me (1pt. min.). @ -None done What testing was considered but not performed or refused? (CT, X-rays, U/S, labs)? Why? @ -None What meds were considered but not given or refused? Why? @ -None Did you discuss the management of the patient with other professionals (professionals i.e. , PA, SLEEPING BAG FILLER, lab, RT, psych nurse, outreach and education social worker, chemistry intern, teacher, landcare officer, case management coordinator)? Give summary @ -Discussed with the admitting provider, Dr. Moore who accepted the admission. Was smoking cessation discussed for >3mins.? @ -No Was critical care preformed (if so, how long)? @ -Yes, 36 minutes. Were there social determinants of health that impacted care today? How? (Homelessness, low income, unemployed, alcoholism, drug addiction, transportation, low edu. Level, literacy, decrease access to med. care, usp, rehab)? @ -No Was there de-escalation of care discussed even if they declined (Discuss DNR or withdrawal of care, Hospice)? DNR status @ -No What co-morbidities impacted this encounter? (DM, HTN, Smoking, COPD, CAD, Cancer, CVA, ARF, Chemo, Hep., AIDS, mental health diagnosis, sleep apnea, morbid obesity)? @ -COPD, CHF Was patient admitted / discharged? Hospital course, mention meds given and route, prescriptions, significant lab abnormalities, going to OR and other pertinent info. @ -Based on patient's presentation and physical exam, presents emergency department for generalized weakness, febrile illness. Exam remarkable for suspected COPD infection. We will obtain infectious labs. Patient was in agreement this plan. Vital signs are currently within acceptable limits. Mild hypoxia and was placed on 2 L nasal cannula which does correct this. She is not normally on oxygen at home. She will be given IV steroids, breathing treatment. She is given a small fluid bolus as well. EKG showed no signs of acute ischemia. Chest x-ray unremarkable. Laboratory studies show CKD and appears to be stable as well as positive COVID testing. On reevaluation, updated patient. Fevers improved. Wheezing is improved. However due to the generalized weakness and positive COVID infection with multiple comorbidities, I did recommend admission to the hospital. She was in agreement this plan. She was also requiring oxygen. Pulmonology consulted. I spoke with the admitting provider, Dr. Moore who accepted the admission. We will continue with IV steroids and breathing treatments. No further IV fluids as I do not want to volume overload the patient with her history of CHF. Undiagnosed new problem with uncertain prognosis? @ -No Drug Therapy requiring intensive monitoring for toxicity (Heparin, Nitro, Insulin, Cardizem)? @ -No Were any procedures done? @ -No Diagnosis/symptom? @ -Hypoxic respiratory failure secondary to COVID infection, COPD Acute, or Chronic, or Acute on Chronic? @ -Acute Uncomplicated (without systemic symptoms) or Complicated (systemic symptoms)? @ -Complicated Side effects of treatment? @ -No Exacerbation, Progression, or Severe Exacerbation? @ -No Poses a threat to life or bodily function? How? (Chest pain, [place], [place], pneumonia, PE, COPD, DKA, ARF, appy, cholecystitis, CVA, Diverticulitis, Homicidal, Suicidal, threat to staff... and all critical care pts) @ -Yes - Lab Data Result diagrams: 04/29/24 20:35 04/29/24 20:35 Lab Results 04/29/24 04/29/24 04/29/24 Range/Units 20:30 20:35 20:35 WBC 6.1 (3.8-10.6) k/uL RBC 3.88 (3.80-5.40) m/uL Hgb 10.2 L (11.4-16.0) gm/dL Hct 32.8 L (34.0-46.0) % MCV 84.6 (80.0-100.0) fL MCH 26.3 (25.0-35.0) pg MCHC 31.1 (31.0-37.0) g/dL RDW 19.3 H (11.5-15.5) % Plt Count 124 L (150-450) k/uL MPV 9.2 Neutrophils % 79 % Lymphocytes % 9 % Monocytes % 9 % Eosinophils % 1 % Basophils % 0 % Neutrophils # 4.8 (1.3-7.7) k/uL Lymphocytes # 0.5 L (1.0-4.8) k/uL Monocytes # 0.6 (0-1.0) k/uL Eosinophils # 0.1 (0-0.7) k/uL Basophils # 0.0 (0-0.2) k/uL Hypochromasia Slight Anisocytosis Slight Microcytosis Slight PT 11.6 (10.0-12.5) sec INR 1.1 (<1.2) APTT 31.9 H (22.0-30.0) sec Sodium (137-145) mmol/L Potassium (3.5-5.1) mmol/L Chloride (98-107) mmol/L Carbon Dioxide (22-30) mmol/L Anion Gap mmol/L BUN (7-17) mg/dL Creatinine (0.52-1.04) mg/dL Est GFR (CKD-EPI)AfAm (>60 ml/min/1.73 sqM) Est GFR (CKD-EPI)NonAf (>60 ml/min/1.73 sqM) Glucose (74-99) mg/dL Plasma Lactic Acid Travon (0.7-2.0) mmol/L Calcium (8.4-10.2) mg/dL Magnesium (1.6-2.3) mg/dL Total Bilirubin (0.2-1.3) mg/dL AST (14-36) U/L ALT (4-34) U/L Alkaline Phosphatase (38-126) U/L Total Protein (6.3-8.2) g/dL Albumin (3.5-5.0) g/dL Influenza Type A (PCR) Not Detected (Not Detectd) Influenza Type B (PCR) Not Detected (Not Detectd) RSV (PCR) Not Detected (Not Detectd) SARS-CoV-2 (PCR) Detected A (Not Detectd) 04/29/24 04/29/24 Range/Units 20:35 20:35 WBC (3.8-10.6) k/uL RBC (3.80-5.40) m/uL Hgb (11.4-16.0) gm/dL Hct (34.0-46.0) % MCV (80.0-100.0) fL MCH (25.0-35.0) pg MCHC (31.0-37.0) g/dL RDW (11.5-15.5) % Plt Count (150-450) k/uL MPV Neutrophils % % Lymphocytes % % Monocytes % % Eosinophils % % Basophils % % Neutrophils # (1.3-7.7) k/uL Lymphocytes # (1.0-4.8) k/uL Monocytes # (0-1.0) k/uL Eosinophils # (0-0.7) k/uL Basophils # (0-0.2) k/uL Hypochromasia Anisocytosis Microcytosis PT (10.0-12.5) sec INR (<1.2) APTT (22.0-30.0) sec Sodium 137 (137-145) mmol/L Potassium 5.0 (3.5-5.1) mmol/L Chloride 105 (98-107) mmol/L Carbon Dioxide 24 (22-30) mmol/L Anion Gap 8 mmol/L BUN 56 H (7-17) mg/dL Creatinine 1.28 H (0.52-1.04) mg/dL Est GFR (CKD-EPI)AfAm 49 (>60 ml/min/1.73 sqM) Est GFR (CKD-EPI)NonAf 43 (>60 ml/min/1.73 sqM) Glucose 148 H (74-99) mg/dL Plasma Lactic Acid Travon 0.6 L (0.7-2.0) mmol/L Calcium 9.2 (8.4-10.2) mg/dL Magnesium 1.8 (1.6-2.3) mg/dL Total Bilirubin 0.4 (0.2-1.3) mg/dL AST 39 H (14-36) U/L ALT 30 (4-34) U/L Alkaline Phosphatase 74 (38-126) U/L Total Protein 6.9 (6.3-8.2) g/dL Albumin 4.2 (3.5-5.0) g/dL Influenza Type A (PCR) (Not Detectd) Influenza Type B (PCR) (Not Detectd) RSV (PCR) (Not Detectd) SARS-CoV-2 (PCR) (Not Detectd) - EKG Data -: EKG Interpreted by Me EKG Comments: 12-lead Electrocardiogram Interpretation Note EKG was reviewed and interpreted by myself. 12-lead ECG performed at 2040 is interpreted by me as revealing normal sinus rhythm at a rate of 70 beats per minute. [place] is normal. LA interval is 195 ms, QRS duration 75 ms, QTc is 381 ms. There were no ST or T wave abnormalities to suggest myocardial ischemia or injury. R wave progression across the precordium was delayed y. By my interpretation this EKG is non-diagnostic for acute ischemia. Critical Care Time Critical Care Time: Yes Total Critical Care Time: 36 Disposition Clinical Impression: COVID-19, Hypoxic respiratory failure, COPD (chronic obstructive pulmonary disease) Disposition: ADMITTED IP TO THIS HOSP Condition: Serious Referrals: Forest Moore MD [Primary Care Provider] - 1-2 days Time of Disposition: 22:00
[2024-04-29] MEDS ORDERED: NALOXONE 0.4 MG/ML 1 ML VIAL IV PRN (22:09)
[2024-04-29] MEDS ORDERED: IBUPROFEN 400 MG TAB PO PRN (22:09)
[2024-04-29] MEDS ORDERED: ACETAMINOPHEN TAB 325 MG TAB PO PRN (22:09)
[2024-04-29 22:45] LABS: Appearance,Urine Clear (Clear); Bacteria,Urine Many /hpf; Bilirubin,Urine Negative (Negative); Blood,Urine Negative (Negative); Color,Urine Colorless; Glucose,Urine (UA) 3+ (Negative); Ketones,Urine Negative (Negative); Leukocyte Esterase,Urine Large (Negative); Nitrite,Urine Positive (Negative); Protein,Urine Negative (Negative); RBC,Urine 1 /hpf (0-5); Specific Gravity,Urine 1.015 (1.001-1.035); Squamous Epithelial Cell,Urine <1 /hpf (0-4); Urobilinogen,Urine <2.0 mg/dL (<2.0); WBC,Urine 23 /hpf (0-5)
[2024-04-30] MEDS ORDERED: IPRATROPIUM-ALBUTEROL 3 ML NEB INHALATION SCH
[2024-04-30] MEDS: LEVOTHYROXINE 50 MCG TAB PO SCH (06:37)
[2024-04-30] MEDS: ALBUTEROL HFA INHALER INHALATION SCH (07:57)
[2024-04-30 08:12] LABS: Anisocytosis Slight; Basophils % (A) 0 %; Eosinophils % (A) 0 %; HCT 34.5 % (34.0-46.0); HGB 10.6 gm/dL (11.4-16.0); Hypochromasia Marked; Lymphocytes # (A) 0.5 k/uL (1.0-4.8); Lymphocytes % (A) 12 %; MCH 26.8 pg (25.0-35.0); MCHC 30.7 g/dL (31.0-37.0); MCV 87.3 fL (80.0-100.0); Mean Platelet Volume 9.1; Monocytes # (A) 0.1 k/uL (0-1.0); Monocytes % (A) 2 %; Neutrophils # (A) 3.6 k/uL (1.3-7.7); Neutrophils % (A) 85 %; Platelet Count 103 k/uL (150-450); RBC 3.95 m/uL (3.80-5.40); WBC 4.2 k/uL (3.8-10.6)
[2024-04-30] MEDS ORDERED: NITROGLYCERIN SL TABS 0.4 MG TAB SUBLINGUAL PRN (08:22)
[2024-04-30] MEDS: LOSARTAN-HCTZ 50-12.5 MG 1 EACH TAB PO SCH (08:23)
[2024-04-30] MEDS ORDERED: DEXTROSE 50% SYRINGE 50 ML IVP PRN ×2 (08:23)
[2024-04-30] MEDS: SPIRONOLACTONE 25 MG TAB PO SCH (08:24)
[2024-04-30] MEDS: METOPROLOL SUCCINATE (ER) 25 MG TAB.ER.24H PO SCH (08:24)
[2024-04-30] MEDS: methylPREDNISolone SOD SUCCI 40 MG/ML 1 ML VIAL IV SCH (08:24)
[2024-04-30] MEDS: FUROSEMIDE 40 MG TAB PO SCH (08:24)
[2024-04-30] MEDS: CLOPIDOGREL 75 MG TAB PO SCH (08:24)
[2024-04-30] MEDS: TAMSULOSIN 0.4 MG CAP.ER.24H PO SCH (08:24)
[2024-04-30] MEDS: allopurinoL 300 MG TAB PO SCH (08:24)
[2024-04-30 08:33] LABS: ALT 29 U/L (4-34); AST 37 U/L (14-36); African American GFR (CKD) 57 (>60 ml/min/1.73 sqM); Albumin 4.3 g/dL (3.5-5.0); Alkaline Phosphatase 72 U/L (38-126); Anion Gap 10 mmol/L; Blood Urea Nitrogen 55 mg/dL (7-17); Calcium 9.3 mg/dL (8.4-10.2); Carbon Dioxide 24 mmol/L (22-30); Chloride 105 mmol/L (98-107); Glucose 276 mg/dL (74-99); Non-African American GFR(CKD) 50 (>60 ml/min/1.73 sqM); Potassium 4.9 mmol/L (3.5-5.1); Sodium 139 mmol/L (137-145); Total Bilirubin 0.5 mg/dL (0.2-1.3); Total Protein 7.1 g/dL (6.3-8.2)
[2024-04-30] MEDS: INSULIN DETEMIR (LEVEMIR) 100 UNIT/ML SYR SQ SCH (09:28)
[2024-04-30] MEDS: AZELASTINE 137MCG/SPRAY EA NOSTRIL SCH (09:28)
[2024-04-30] MEDS: oxyBUTYnin chloride 5 MG TAB PO SCH (09:41)
[2024-04-30] MEDS: CHOLECALCIFEROL 25 MCG (1000 IU) TABLET PO SCH ×2 (09:41→11:13)
[2024-04-30] MEDS: FERROUS SULFATE 325 MG TAB PO SCH (09:41)
[2024-04-30] MEDS: LORATADINE 10 MG TAB PO SCH (09:42)
[2024-04-30] MEDS: SPIRONOLACTONE 25 MG TAB PO STA (10:07)
--- NOTE | 2024-04-30 11:09 | P.HPIM ---
History of Present Illness H&P Date: 04/30/24 Luz Swann is a 68 yo F with PMH significant for recent PPM, cardiac ablation, cardioversion, coronary artery disease with previous stenting, persistent atrial fibrillation, cardiomyopathy hypertension, hyperlipidemia, obesity, obstructive sleep apnea, diabetes, and cardiomyopathy presented to the ER with complaints of dyspnea, increased weakness over the last 24 to 48 hours accompanied by ongoing nonproductive cough greater than 2 weeks. Denies chills, fevers, sore throat, body aches, sick contacts, headache or lightheadedness. On admission O2 sats initially 92% on room air, dropped down to 85% on room air, febrile with Tmax of 101, WBC 4.2 . Hemoglobin 10.6, platelets 103. Electrolytes within normal limits. Bicarb 24, BUN 55, creatinine decreased to 1.13 (baseline 0.9-1). chest x-ray reports cardiomegaly, mild pulmonary vascular congestion.pro.BNP ordered. Aldactone increased. currently maintaining O2 sats in the 90s on 2 L nasal cannula. UA positive for nitrates, large leukocytes, many bacteria. Review of Systems ROS Statement: Those systems with pertinent positive or pertinent negative responses have been documented in the HPI. ROS Other: All systems not noted in ROS Statement are negative. Past Medical History Past Medical History: Atrial Fibrillation, Coronary Artery Disease (CAD), Diabetes Mellitus, GERD/Reflux, GI Bleed, Hyperlipidemia, Hypertension, Osteoarthritis (OA) Additional Past Medical History / Comment(s): See Dr Cabrales's H&P. see dr garcia's H & P History of Any Multi-Drug Resistant Organisms: None Reported Past Surgical History: Appendectomy, Section, Cholecystectomy, Heart Catheterization With Stent, Hysterectomy, Joint Replacement, Orthopedic Surgery Additional Past Surgical History / Comment(s): Bilateral carpal tunnel, bilateral total knee replacements, colonoscopy, EGD. Past Anesthesia/Blood Transfusion Reactions: Previous Problems w/ Anesthesia Additional Past Anesthesia/Blood Transfusion Reaction / Comment(s): Had spinal fluid leak w/ prior spinal for knee surgery-stated was told not to have spinals. No problems with blood transfusion received 30-40 yrs ago. Date of Last Stent Placement:: 2022 Past Psychological History: No Psychological Hx Reported Smoking Status: Never smoker Past Alcohol Use History: None Reported Past Drug Use History: None Reported - Past Family History Mother Family Medical History: No Reported History Medications and Allergies Home Medications Medication Instructions Recorded Confirmed Type Omeprazole 20 mg PO HS 06/04/16 04/29/24 History Rivaroxaban [Xarelto] 20 mg PO W/SUPPER 06/04/16 04/29/24 History allopurinoL [Zyloprim] 300 mg PO DAILY 06/04/16 04/29/24 History Cholecalciferol [Vitamin D3 (25 25 mcg PO DAILY 09/03/22 04/29/24 History Mcg = 1000 Iu)] oxyBUTYnin chloride [Ditropan] 5 mg PO DAILY 09/03/22 04/29/24 History Pregabalin [Lyrica] 150 mg PO TID 11/17/22 04/29/24 History Nitroglycerin Sl Tabs [Nitrostat] 0.4 mg SUBLINGUAL Q5M PRN #50 tab 03/09/23 04/29/24 Rx Cetirizine HCl [Zyrtec] 10 mg PO DAILY 04/11/23 04/29/24 History Empagliflozin [Jardiance] 10 mg PO DAILY 04/11/23 04/29/24 History Ferrous Sulfate [Iron (65 MG 325 mg PO DAILY 04/11/23 04/29/24 History Elemental)] HYDROcodone/APAP 10-325MG [[place] 1 tab PO QID 10/22/23 04/29/24 History 10-325] Insulin Aspart [NovoLOG Flexpen] 10 - 12 units SQ PC-TID 10/22/23 04/29/24 History Levothyroxine Sodium [Synthroid] 50 mcg PO DAILY@0630 30 Days #30 10/26/23 04/29/24 Rx tab Tamsulosin [Flomax] 0.4 mg PO PC-BRKFST 30 Days #30 cap 10/26/23 04/29/24 Rx Amitriptyline HCl [Elavil] 10 mg PO HS 04/29/24 04/29/24 History Atorvastatin [Lipitor] 40 mg PO HS 04/29/24 04/29/24 History Azelastine HCl [Astelin Nasal 1 spray EA NOSTRIL BID 04/29/24 04/29/24 History [place]] Clopidogrel [Plavix] 75 mg PO DAILY 04/29/24 04/29/24 History Furosemide [Lasix] 40 mg PO DAILY 04/29/24 04/29/24 History Losartan/Hydrochlorothiazide 1 tab PO DAILY 04/29/24 04/29/24 History [Losartan-Hctz 100-25 mg Tab] Metoprolol Succinate [Metoprolol 25 mg PO DAILY 04/29/24 04/29/24 History Succinate ER] Spironolactone [Aldactone] 25 mg PO DAILY 04/29/24 04/29/24 History Tirzepatide [Mounjaro] 10 mg SQ FR 04/29/24 04/29/24 History metFORMIN HCL [Glucophage] 500 mg PO BID 04/29/24 04/29/24 History Allergies Allergy/AdvReac Type Severity Reaction Status Date / Time No Known Allergies Allergy Verified 04/29/24 20:50 Physical Exam Vitals: Vital Signs Temp Pulse Resp BP Pulse Ox 04/30/24 06:30 97.7 F 78 16 159/85 96 04/30/24 03:36 60 16 102/44 95 04/30/24 01:18 63 18 127/67 96 04/29/24 23:33 62 16 141/69 95 04/29/24 21:38 98.8 F 62 18 126/63 96 04/29/24 21:34 64 04/29/24 21:21 62 04/29/24 20:45 68 16 85 L 04/29/24 20:05 18 04/29/24 19:59 101 F H 74 16 140/71 92 L Intake and Output 04/29/24 04/30/24 04/30/24 22:59 06:59 14:59 Other: Weight 117.934 kg Gen: Alert and oriented x 3, sitting up on stretcher, obese, NAD HEENT: NC, AT,conjunctiva pink, sclera anicteric. Neck: supple, no JVD or thyromegaly. CV: S1 and S2 normal ,no murmur Lungs: Unlabored, equal air entry , fine expiratory wheeze Abd: soft, non distended, nontender, positive bowel sounds Neuro: Cranial nerves II through XII grossly intact. No focal deficit. Skin: warm and dry Results CBC & Chem 7: 04/30/24 07:47 04/30/24 07:47 Labs: Abnormal Lab Results - Last 24 Hours (Table) 04/29/24 04/29/24 04/29/24 Range/Units 20:30 20:35 20:35 Hgb 10.2 L (11.4-16.0) gm/dL Hct 32.8 L (34.0-46.0) % RDW 19.3 H (11.5-15.5) % Plt Count 124 L (150-450) k/uL Lymphocytes # 0.5 L (1.0-4.8) k/uL APTT 31.9 H (22.0-30.0) sec BUN (7-17) mg/dL Creatinine (0.52-1.04) mg/dL Glucose (74-99) mg/dL Plasma Lactic Acid [place]on (0.7-2.0) mmol/L AST (14-36) U/L Urine Glucose (UA) (Negative) Urine Nitrite (Negative) Ur Leukocyte Esterase (Negative) Urine WBC (0-5) /hpf Urine Bacteria (None) /hpf SARS-CoV-2 (PCR) Detected A (Not Detectd) 04/29/24 04/29/24 04/29/24 Range/Units 20:35 20:35 22:37 Hgb (11.4-16.0) gm/dL Hct (34.0-46.0) % RDW (11.5-15.5) % Plt Count (150-450) k/uL Lymphocytes # (1.0-4.8) k/uL APTT (22.0-30.0) sec BUN 56 H (7-17) mg/dL Creatinine 1.28 H (0.52-1.04) mg/dL Glucose 148 H (74-99) mg/dL Plasma Lactic Acid [place]on 0.6 L (0.7-2.0) mmol/L AST 39 H (14-36) U/L Urine Glucose (UA) 3+ H (Negative) Urine Nitrite Positive H (Negative) Ur Leukocyte Esterase Large H (Negative) Urine WBC 23 H (0-5) /hpf Urine Bacteria Many H (None) /hpf SARS-CoV-2 (PCR) (Not Detectd) Assessment and Plan Assessment: Acute COVID-19 infection Acute hypoxic respiratory failure secondary to the above Possible mild acute on chronic CHF exacerbation, systolic dysfunction, EF 45- 50%, chest x-ray suggest mild pulmonary vascular congestion, BNP pending Acute UTI, culture pending Chronic intermittent asthma Chronic anemia Permanent pacemaker implantation 11/25/2023 secondary to sick sinus syndrome with symptomatic bradycardia Chronic atrial fibrillation Recent cardiac ablation 10/31/2023 CAD, history of stenting to the LAD Hypertension Hyperlipidemia History of cardiomyopathy, EF 45% Diabetes mellitus II, prior A1c 6.6, current A1c pending Morbid obesity, BMI 42 Obstructive sleep apnea, uses CPAP Gait dysfunction, uses walker Plan: Continue on current medication regimen ,monitoring and symptomatic treatment. Aggressive pulmonary toileting, maintain albuterol inhaler, stero ids, zinc, vitamin D, vitamin C. NovoLog sliding scale, long-acting insulin initiated with close monitoring of Accu-Cheks .hemoglobin A1c pending .chest x- ray suggest mild pulmonary vascular congestion, renal function returned to baseline, Aldactone increased, BNP pending. Pulmonary consult in place, recommendations pending urine culture ordered, antibiotics initiated. The impression and plan of care has been dictated as directed. : I performed a history and examination of this patient, discussed the same with the dictator. I agree with the dictator's note ,documented as a scribe. Any additional findings or plans will be noted.
[2024-04-30 11:47] LABS: Glucose,Whole Blood 317 mg/dL (70-110)
[2024-04-30] MEDS: ASCORBIC ACID 500 MG TAB PO SCH (11:51)
[2024-04-30] MEDS: ZINC SULFATE 220 MG CAP PO SCH (11:51)
[2024-04-30] MEDS: INSULIN ASPART (NovoLOG) 100 UNIT/ML VIAL SQ SCH (11:52)
--- NOTE | 2024-04-30 15:37 | CDI ---
Documentation Clarification Form Date: 04/30/2024 03:11:26 PM From: Megan Gan RN, CCDS Phone: [phone] Admit Date: 04/29/2024 10:09:00 PM Patient Name: Luz Swann Visit Number: [id number] Discharge Date: ATTENTION: The Clinical Documentation Specialists (CDI) and [facility] Coding Staff appreciate your assistance in clarifying documentation. Please respond to the clarification below the line at the bottom and electronically sign. The CDI & [facility] Coding staff will review the response and follow-up if needed. Please note: Queries are made part of the Legal Health Record. If you have any questions, please contact the author of this message via ITS. Doctor/Provider: Forest Moore Your patient has abnormal lab findings. Based on this information and the findings below, is there an additional diagnosis that is clinically appropriate for this patient? Patient history/risk factors: A-fib, CAD, diabetes, hypertension, hyperlipidemia, COPD, CHF Clinical Indicators: 68-year-old female who present to ED complaining of weakness. Mild shortness of breath. Covid Detected 04/29 BUN 56 CR 1.26 GFR 43 (Baseline 0.9-1) Treatment: Cardiac Monitoring/Cushion Mat Maker BMP, CBC per orders Is there an additional diagnosis that is clinically appropriate for this patient? [ X ] Acute Kidney Injury [ ] Acute Renal Failure [ ] Acute on Chronic Renal Failure (Please Stage) [ ] Unable to determine [ ] Other, please specify Reference: KDIGO JL Criteria An increase in serum creatinine by greater than or equal to 0.3 mg/dL within 48 hours; An increase in serum creatinine by greater than or equal to 1.5 times baseline, which is known or presumed to have occurred within the prior 7 days; A urine volume less than 0.5 ml/kg/h for 6 hours. Reference: National Kid[employer] Stage 1 eGFR ? 90 and kidney damage for ?3 months Stage 2 eGFR 60-89 and kidney damage for ?3 months Stage 3a eGFR 45-59 and kidney damage for ?3 months Stage 3b eGFR 30-44 and kidney damage for ?3 months (Template Last Revised: July 2022) MTDD
[2024-04-30 16:51] LABS: Glucose,Whole Blood 300 mg/dL (70-110)
[2024-04-30] MEDS: RIVAROXABAN 20 MG TAB PO SCH (16:57)
--- NOTE | 2024-04-30 18:22 | P.CNPUL ---
History of Present Illness Consult date: 04/30/24 Reason for consult: dyspnea History of present illness: This is a 68-year-old female patient, seen in the emergency department because of worsening shortness of breath. The patient is obese with a body mass index of 42. The patient is known to have coronary disease with previous coronary stenting, chronic A-fib, CHF, hypertension hyperlipidemia obstructive sleep apnea along with history of diabetes mellitus. He is also known to have previ ous history of pacemaker insertion implanted on 11/25/2023 for sick sinus syndrome and symptomatic bradycardia. Her baseline left-sided ejection fraction is in order of 45%. The patient came into the hospital because of worsening shortness of breath, cough and congestion and wheezing. She was found to be hypoxic and currently she is on 2 L of oxygen by nasal cannula. Noted the patient is a lifetime non-smoker. In the hospital, the patient was found to have a COVID-19 infection. Her symptoms started approximately 2 days ago. The patient received vaccination in the past including a total of 3 shots for COVID-19 as part of her vaccination since the beginning of pandemic. No previous history of COVID-19 infection that has been documented in this patient. Chest x-ray done in the emergency was consistent with CHF with cardiomegaly and pulm vascular congestion. Her most recent cardiac stress test was done on 02/09 and 02/11/2024 that showed large area of remote insult over the anterior wall without any reversible ischemia. Estimated ejection fraction was 51%. Currently, the patient is on IV Solu-Medrol 40 mg every 12 hours. Home medication resumed. She remains on long-term anticoagulation with Xarelto. She is also on a combination of Lasix and Aldactone. She is on Levemir insulin 10 units daily + scale coverage. She remains on Plavix. Review of Systems Constitutional: Reports fatigue, Reports weight gain Eyes: denies as per HPI, denies blurred vision, denies bulging eye, denies decreased vision, denies diplopia, denies discharge, denies dry eye, denies irritation, denies itching, denies pain, denies photophobia, denies loss of peripheral vision, denies loss of vision, denies tunnel vision/blind spots Ears: deny: decreased hearing, ear discharge, earache, tinnitus Ears, nose, mouth and throat: Reports as per HPI Breasts: absent: as per HPI, change in shape, gynecomastia, masses, nipple discharge, pain, skin changes, swelling Breasts: Reports as per HPI Cardiovascular: Reports as per HPI, Reports decreased exercise tolerance, Reports dyspnea on exertion Respiratory: Reports congestion, Reports cough Gastrointestinal: Reports as per HPI Genitourinary: Reports as per HPI Menstruation: Reports as per HPI Musculoskeletal: Reports as per HPI Musculoskeletal: absent: ankle pain, ankle stiffness, ankle swelling, as per HP I, elbow pain, elbow stiffness, elbow swelling, foot pain, foot stiffness, foot swelling, hand pain, hand stiffness, hand swelling, hip pain, hip stiffness, hip swelling, knee pain, knee stiffness, knee swelling, shoulder pain, shoulder stiffness, shoulder swelling, wrist pain, wrist stiffness, wrist swelling Integumentary: Reports as per HPI Neurological: Reports as per HPI Psychiatric: Reports as per HPI Endocrine: Reports as per HPI Hematologic/Lymphatic: Reports as per HPI Allergic/Immunologic: Reports as per HPI Past Medical History Past Medical History: Atrial Fibrillation, Coronary Artery Disease (CAD), Diabetes Mellitus, GERD/Reflux, GI Bleed, Hyperlipidemia, Hypertension, Osteoarthritis (OA) Additional Past Medical History / Comment(s): See Dr Cabrales's H&P. see dr jojo glaser's H & P History of Any Multi-Drug Resistant Organisms: None Reported Past Surgical History: Appendectomy, Section, Cholecystectomy, Heart Catheterization With Stent, Hysterectomy, Joint Replacement, Orthopedic Surgery Additional Past Surgical History / Comment(s): Bilateral carpal tunnel, bilateral total knee replacements, colonoscopy, EGD. Past Anesthesia/Blood Transfusion Reactions: Previous Problems w/ Anesthesia Additional Past Anesthesia/Blood Transfusion Reaction / Comment(s): Had spinal fluid leak w/ prior spinal for knee surgery-stated was told not to have spinals. No problems with blood transfusion received 30-40 yrs ago. Date of Last Stent Placement:: 2022 Past Psychological History: No Psychological Hx Reported Smoking Status: Never smoker Past Alcohol Use History: None Reported Past Drug Use History: None Reported - Past Family History Mother Family Medical History: No Reported History Medications and Allergies Home Medications Medication Instructions Recorded Confirmed Type Omeprazole 20 mg PO HS 06/04/16 04/29/24 History Rivaroxaban [Xarelto] 20 mg PO W/SUPPER 06/04/16 04/29/24 History allopurinoL [Zyloprim] 300 mg PO DAILY 06/04/16 04/29/24 History Cholecalciferol [Vitamin D3 (25 25 mcg PO DAILY 09/03/22 04/29/24 History Mcg = 1000 Iu)] oxyBUTYnin chloride [Ditropan] 5 mg PO DAILY 09/03/22 04/29/24 History Pregabalin [Lyrica] 150 mg PO TID 11/17/22 04/29/24 History Nitroglycerin Sl Tabs [Nitrostat] 0.4 mg SUBLINGUAL Q5M PRN #50 tab 03/09/23 04/29/24 Rx Cetirizine HCl [Zyrtec] 10 mg PO DAILY 04/11/23 04/29/24 History Empagliflozin [Jardiance] 10 mg PO DAILY 04/11/23 04/29/24 History Ferrous Sulfate [Iron (65 MG 325 mg PO DAILY 04/11/23 04/29/24 History Elemental)] HYDROcodone/APAP 10-325MG [[place] 1 tab PO QID 10/22/23 04/29/24 History 10-325] Insulin Aspart [NovoLOG Flexpen] 10 - 12 units SQ PC-TID 10/22/23 04/29/24 History Levothyroxine Sodium [Synthroid] 50 mcg PO DAILY@0630 30 Days #30 10/26/23 04/29/24 Rx tab Tamsulosin [Flomax] 0.4 mg PO PC-BRKFST 30 Days #30 cap 10/26/23 04/29/24 Rx Amitriptyline HCl [Elavil] 10 mg PO HS 04/29/24 04/29/24 History Atorvastatin [Lipitor] 40 mg PO HS 04/29/24 04/29/24 History Azelastine HCl [Astelin Nasal 1 spray EA NOSTRIL BID 04/29/24 04/29/24 History [place]] Clopidogrel [Plavix] 75 mg PO DAILY 04/29/24 04/29/24 History Furosemide [Lasix] 40 mg PO DAILY 04/29/24 04/29/24 History Losartan/Hydrochlorothiazide 1 tab PO DAILY 04/29/24 04/29/24 History [Losartan-Hctz 100-25 mg Tab] Metoprolol Succinate [Metoprolol 25 mg PO DAILY 04/29/24 04/29/24 History Succinate ER] Spironolactone [Aldactone] 25 mg PO DAILY 04/29/24 04/29/24 History Tirzepatide [Mounjaro] 10 mg SQ FR 04/29/24 04/29/24 History metFORMIN HCL [Glucophage] 500 mg PO BID 04/29/24 04/29/24 History Allergies Allergy/AdvReac Type Severity Reaction Status Date / Time No Known Allergies Allergy Verified 04/29/24 20:50 Physical Exam Vitals: Vital Signs Temp Pulse Resp BP Pulse Ox 04/30/24 08:32 64 18 145/88 04/30/24 06:30 97.7 F 78 16 159/85 96 04/30/24 03:36 60 16 102/44 95 04/30/24 01:18 63 18 127/67 96 04/29/24 23:33 62 16 141/69 95 04/29/24 21:38 98.8 F 62 18 126/63 96 04/29/24 21:34 64 04/29/24 21:21 62 04/29/24 20:45 68 16 85 L 04/29/24 20:05 18 04/29/24 19:59 101 F H 74 16 140/71 92 L Intake and Output 04/29/24 04/30/24 04/30/24 22:59 06:59 14:59 Other: Weight 117.934 kg Results - Laboratory Findings CBC and BMP: 04/30/24 07:47 04/30/24 07:47 PT/INR, D-dimer PT 11.6 sec (10.0-12.5) 04/29/24 20:35 INR 1.1 (<1.2) 04/29/24 20:35 Abnormal lab findings: Abnormal Labs 04/29/24 04/29/24 04/29/24 20:30 20:35 20:35 Hgb 10.2 L Hct 32.8 L MCHC RDW 19.3 H Plt Count 124 L Lymphocytes # 0.5 L APTT 31.9 H BUN Creatinine Glucose Plasma Lactic Acid [place] AST Urine Glucose (UA) Urine Nitrite Ur Leukocyte Esterase Urine WBC Urine Bacteria SARS-CoV-2 (PCR) Detected A 04/29/24 04/29/24 04/29/24 20:35 20:35 22:37 Hgb Hct MCHC RDW Plt Count Lymphocytes # APTT BUN 56 H Creatinine 1.28 H Glucose 148 H Plasma Lactic Acid [place] 0.6 L AST 39 H Urine Glucose (UA) 3+ H Urine Nitrite Positive H Ur Leukocyte Esterase Large H Urine WBC 23 H Urine Bacteria Many H SARS-CoV-2 (PCR) 04/30/24 04/30/24 07:47 07:47 Hgb 10.6 L Hct MCHC 30.7 L RDW 19.0 H Plt Count 103 L Lymphocytes # 0.5 L APTT BUN 55 H Creatinine 1.13 H Glucose 276 H Plasma Lactic Acid [place] AST 37 H Urine Glucose (UA) Urine Nitrite Ur Leukocyte Esterase Urine WBC Urine Bacteria SARS-CoV-2 (PCR) Assessment and Plan Plan: Acute COVID-19 infection, received vaccination x 3 in the past, no prior COVID- 19 infection documented Acute hypoxic respiratory failure, likely due to COVID-19 infection with a component of CHF exacerbation. The patient is currently on oxygen at 2 L/min nasal cannula Acute dyspnea, secondary to suspected to be related to COVID 19 with a component of diastolic CHF exacerbation, Chest x-ray shows cardiomegaly/pulmonary vascular congestion. Most recent echocardiogram done 10/22/2023, which was a limited study, estimated LV ejection fraction was approximately 45 to 50%. Subsequently cardiac stress test on 02/11/2024 showed no reversible ischemia and there is an old anterior wall fixed defect. Obesity chronic atrial fibrillation status/post cardiac ablation, performed on 10/31/2023 Sinus bradycardia, post pacemaker insertion Coronary artery disease, with previous history of PCI/stenting to the LAD History of hypertension History of hyperlipidemia History of diabetes mellitus Morbid obesity with a BMI of 43.3 kg/m History of moderate obstructive sleep apnea, with an AHI of 26, maintained on CP AP at home with a pressure support of 8, will not be able to tolerate full facemask currently with nasal fractures Lifetime non-smoker Plan Titrate oxygen flow to maintain saturation above 90% IV steroids Check inflammatory markers including procalcitonin, LDH and CRP Continue diuretics with Lasix and Aldactone Resume home medications Antibiotic coverage is empiric Utilize CPAP machine from home with a pressure of 8 cm of water Continue Plavix Continue Xarelto We will continue to follow
[2024-04-30 21:24] LABS: Glucose,Whole Blood 298 mg/dL (70-110)
[2024-04-30] MEDS: PANTOPRAZOLE 40 MG TABLET PO SCH (22:59)
[2024-04-30] MEDS: ATORVASTATIN 40 MG TAB PO SCH (23:00)
[2024-04-30 23:04] LABS: Glucose,Whole Blood 302 mg/dL (70-110)
[2024-05-01 00:22] LABS: C Reactive Protein 3.2 mg/dL (0.00-0.80)
[2024-05-01] MEDS: AMITRIPTYLINE HCL 10 MG TAB PO SCH (00:23)
[2024-05-01 07:00] LABS: Glucose,Whole Blood 258 mg/dL (70-110)
[2024-05-01 08:14] LABS: Anisocytosis Slight; Basophils % (A) 0 %; Eosinophils % (A) 0 %; HCT 35.7 % (34.0-46.0); HGB 11.2 gm/dL (11.4-16.0); Hypochromasia Slight; Lymphocytes # (A) 0.5 k/uL (1.0-4.8); Lymphocytes % (A) 6 %; MCH 26.5 pg (25.0-35.0); MCHC 31.3 g/dL (31.0-37.0); MCV 84.6 fL (80.0-100.0); Mean Platelet Volume 8.9; Microcytosis Slight; Monocytes # (A) 0.3 k/uL (0-1.0); Monocytes % (A) 4 %; Neutrophils # (A) 6.7 k/uL (1.3-7.7); Neutrophils % (A) 89 %; Platelet Count 140 k/uL (150-450); RBC 4.22 m/uL (3.80-5.40); RDW 19.2 % (11.5-15.5); WBC 7.5 k/uL (3.8-10.6)
[2024-05-01] MEDS: SPIRONOLACTONE 25 MG TAB PO SCH (09:23)
[2024-05-01 11:32] LABS: Glucose,Whole Blood 325 mg/dL (70-110)
--- NOTE | 2024-05-01 12:36 | P.PN ---
Subjective Progress Note Date: 05/01/24 H&P Date: 04/30/24 Luz Swann is a 68 yo F with PMH significant for recent PPM, cardiac ablation, cardioversion, coronary artery disease with previous stenting, persistent atrial fibrillation, cardiomyopathy hypertension, hyperlipidemia, obesity, obstructive sleep apnea, diabetes, and cardiomyopathy presented to the ER with complaints of dyspnea, increased weakness over the last 24 to 48 hours accompanied by ongoing nonproductive cough greater than 2 weeks. Denies chills, fevers, sore throat, body aches, sick contacts, headache or lightheadedness. On admission O2 sats initially 92% on room air, dropped down to 85% on room air, febrile with Tmax of 101, WBC 4.2 . Hemoglobin 10.6, platelets 103. Electrolytes within normal limits. Bicarb 24, BUN 55, creatinine decreased to 1.13 (baseline 0.9-1). chest x-ray reports cardiomegaly, mild pulmonary vascular congestion.pro.BNP ordered. Aldactone increased. currently maintaining O2 sats in the 90s on 2 L nasal cannula. UA positive for nitrates, large leukocytes, many bacteria. 05/01/2024 maintained on diuretics, bronchodilators, IV steroids, respiratory status slowly improving. Reports less shortness of breath. maintained O2 sats in the 90s on on 2 L nasal cannula O2 .blood sugars uncontrolled .hemoglobin A1c 8.2 .her significant other has just been diagnosed with COVID as well. Empiric antibiotics for potential UTI, culture in progress. BMP pending. afebrile, normal WBC. Procalcitonin normal, 0.18. LDH and CRP elevated at 255, 3.20. Objective - Vital Signs Vital signs: Vital Signs Temp 97.1 F L 05/01/24 07:56 Pulse 64 05/01/24 07:56 Resp 20 05/01/24 10:39 BP 157/66 05/01/24 07:56 Pulse Ox 98 05/01/24 07:56 FiO2 Intake & Output 04/30/24 05/01/24 05/01/24 18:59 06:59 18:59 Intake Total 300 Balance 300 Weight 117.934 kg Intake: Oral 300 Other: Voiding Method Toilet # Voids 1 - Exam Gen: Obese, alert and oriented x 3, sitting up at side of bed, NAD HEENT: NC, AT,conjunctiva pink, sclera anicteric. Neck: supple, no JVD or thyromegaly. CV: S1 and S2 normal ,no murmur Lungs: Unlabored, equal air entry , essentially clear Abd: soft, non distended, nontender, positive bowel sounds Neuro: Cranial nerves II through XII grossly intact. No focal deficit. Skin: warm and dry - Labs CBC & Chem 7: 05/01/24 07:39 04/30/24 07:47 Labs: Abnormal Lab Results - Last 24 Hours (Table) 04/30/24 04/30/24 04/30/24 Range/Units 07:47 16:50 21:22 Hgb (11.4-16.0) gm/dL RDW (11.5-15.5) % Plt Count (150-450) k/uL Lymphocytes # (1.0-4.8) k/uL POC Glucose (mg/dL) 300 H 298 H (70-110) mg/dL Hemoglobin A1c (<=6.0) % Lactate Dehydrogenase 255 H (120-246) U/L C-Reactive Protein 3.20 H (0.00-0.80) mg/dL 04/30/24 05/01/24 05/01/24 Range/Units 23:03 05:08 06:59 Hgb (11.4-16.0) gm/dL RDW (11.5-15.5) % Plt Count (150-450) k/uL Lymphocytes # (1.0-4.8) k/uL POC Glucose (mg/dL) 302 H 258 H (70-110) mg/dL Hemoglobin A1c 8.2 H (<=6.0) % Lactate Dehydrogenase (120-246) U/L C-Reactive Protein (0.00-0.80) mg/dL 05/01/24 05/01/24 Range/Units 07:39 11:31 Hgb 11.2 L (11.4-16.0) gm/dL RDW 19.2 H (11.5-15.5) % Plt Count 140 L (150-450) k/uL Lymphocytes # 0.5 L (1.0-4.8) k/uL POC Glucose (mg/dL) 325 H (70-110) mg/dL Hemoglobin A1c (<=6.0) % Lactate Dehydrogenase (120-246) U/L C-Reactive Protein (0.00-0.80) mg/dL Assessment and Plan Assessment: Acute COVID-19 infection Acute hypoxic respiratory failure secondary to the above Possible mild acute on chronic CHF exacerbation, systolic dysfunction, EF 45- 50%, chest x-ray suggest mild pulmonary vascular congestion, BNP pending Acute UTI, culture pending Acute renal failure on admission, returned to baseline Chronic intermittent asthma Chronic anemia Permanent pacemaker implantation 11/25/2023 secondary to sick sinus syndrome with symptomatic bradycardia Chronic atrial fibrillation Recent cardiac ablation 10/31/2023 CAD, history of stenting to the LAD Hypertension Hyperlipidemia History of cardiomyopathy, EF 45% Diabetes mellitus II, hyperglycemic, A1c 8.2, further diabetic education outpatient in clinic, at follow-up with PCP Morbid obesity, BMI 42 Obstructive sleep apnea, uses CPAP Gait dysfunction, uses walker Plan: Continue on current medication regimen ,monitoring and symptomatic treatment. Maintain aggressive pulmonary toileting, diuretics, albuterol inhaler, steroids, zinc, vitamin D, vitamin C. Tighter blood sugar control, Lev azam insulin increased, close monitoring of Accu-Cheks. Empiric antibiotics - urine culture pending .close monitoring of Accu-Cheks. Pulmonary following . The impression and plan of care has been dictated as directed. : I performed a history and examination of this patient, discussed the same with the dictator. I agree with the dictator's note ,documented as a scribe. Any additional findings or plans will be noted.
[2024-05-01 15:23] LABS: Glucose,Whole Blood 306 mg/dL (70-110)
[2024-05-01] MEDS: INSULIN DETEMIR (LEVEMIR) 100 UNIT/ML SYR SQ ONE (15:23)
--- NOTE | 2024-05-01 15:54 | P.PN ---
Subjective Progress Note Date: 05/01/24 This is a 68-year-old female patient, seen in the emergency department because of worsening shortness of breath. The patient is obese with a body mass index of 42. The patient is known to have coronary disease with previous coronary stenting, chronic A-fib, CHF, hypertension hyperlipidemia obstructive sleep apnea along with history of diabetes mellitus. He is also known to have previous history of pacemaker insertion implanted on 11/25/2023 for sick sinus syndrome and symptomatic bradycardia. Her baseline left-sided ejection fraction is in order of 45%. The patient came into the hospital because of worsening shortness of breath, cough and congestion and wheezing. She was found to be hypoxic and currently she is on 2 L of oxygen by nasal cannula. Noted the patient is a lifetime non-smoker. In the hospital, the patient was found to have a COVID-19 infection. Her symptoms started approximately 2 days ago. The patient received vaccination in the past including a total of 3 shots for COVID- 19 as part of her vaccination since the beginning of pandemic. No previous history of COVID-19 infection that has been documented in this patient. Chest x-ray done in the emergency was consistent with CHF with cardiomegaly and pulm vascular congestion. Her most recent cardiac stress test was done on 02/09 and 02/11/2024 that showed large area of remote insult over the anterior wall without any reversible ischemia. Estimated ejection fraction was 51%. Currently, the patient is on IV Solu-Medrol 40 mg every 12 hours. Home medication resumed. She remains on long-term anticoagulation with Xarelto. She is also on a combination of Lasix and Aldactone. She is on Levemir insulin 10 units daily + scale coverage. She remains on Plavix. On 05/01/2024, the patient is being seen for a follow-up. The patient is being treated for acute COVID-19 infection that was further complicated by a component of CHF exacerbation and hypoxic respiratory failure. The patient is doing better compared to yesterday. She is currently on 2 L with a pulse ox of 98%. No fever. No chills. No hemodynamic instability. She remains on IV Solu- Medrol 40 mg every 12 hours. She remains on Aldactone 50 mg p.o. daily and Lasix 40 mg p.o. daily. She remains on anticoagulation with Xarelto 20 mg p.o. daily. Note that her hemoglobin A1c was at 8.2. The patient's procalcitonin level was 0.18. proBNP level was 1480. LDH was 255 and CRP was 3.2. The white cell count is at 7.5 with a hemoglobin of 11.2. No new complaints otherwise for now. Objective - Vital Signs Vital signs: Vital Signs Temp 97.1 F L 05/01/24 07:56 Pulse 64 05/01/24 07:56 Resp 20 05/01/24 10:39 BP 157/66 05/01/24 07:56 Pulse Ox 98 05/01/24 07:56 FiO2 Intake & Output 04/30/24 05/01/24 05/01/24 18:59 06:59 18:59 Intake Total 300 Balance 300 Weight 117.934 kg Intake: Oral 300 Other: Voiding Method Toilet # Voids 1 - Exam The patient appeared well nourished and normally developed. Vital signs as documented. The patient is currently on 2 L of oxygen by nasal cannula Head exam is unremarkable. No scleral icterus or corneal arcus noted. Neck is without jugular venous distension, thyromegaly, or carotid bruits. Carotid upstrokes are brisk bilaterally. Lungs are clear to auscultation and percussion. Diminished breath sounds along with few crackles in the lung base bilaterally Cardiac exam reveals the PMI to be normally sized and situated. Rhythm is regular. First and second heart sounds normal. No murmurs, rubs or gallops. Abdominal exam reveals normal bowel sounds, no masses, no organomegaly and no aortic enlargement. Extremities are nonedematous and both femoral and pedal pulses are normal. Examination of the skin revealed no evidence of significant rashes, suspicious appearing nevi or other concerning lesions. Neurologically, the patient is awake and alert and the patient does not have any focal neurological deficit. Cranial nerves are essentially intact. - Labs CBC & Chem 7: 05/01/24 07:39 04/30/24 07:47 Labs: Abnormal Lab Results - Last 24 Hours (Table) 04/30/24 04/30/24 04/30/24 Range/Units 07:47 16:50 21:22 Hgb (11.4-16.0) gm/dL RDW (11.5-15.5) % Plt Count (150-450) k/uL Lymphocytes # (1.0-4.8) k/uL POC Glucose (mg/dL) 300 H 298 H (70-110) mg/dL Hemoglobin A1c (<=6.0) % Lactate Dehydrogenase 255 H (120-246) U/L C-Reactive Protein 3.20 H (0.00-0.80) mg/dL 04/30/24 05/01/24 05/01/24 Range/Units 23:03 05:08 06:59 Hgb (11.4-16.0) gm/dL RDW (11.5-15.5) % Plt Count (150-450) k/uL Lymphocytes # (1.0-4.8) k/uL POC Glucose (mg/dL) 302 H 258 H (70-110) mg/dL Hemoglobin A1c 8.2 H (<=6.0) % Lactate Dehydrogenase (120-246) U/L C-Reactive Protein (0.00-0.80) mg/dL 05/01/24 05/01/24 Range/Units 07:39 11:31 Hgb 11.2 L (11.4-16.0) gm/dL RDW 19.2 H (11.5-15.5) % Plt Count 140 L (150-450) k/uL Lymphocytes # 0.5 L (1.0-4.8) k/uL POC Glucose (mg/dL) 325 H (70-110) mg/dL Hemoglobin A1c (<=6.0) % Lactate Dehydrogenase (120-246) U/L C-Reactive Protein (0.00-0.80) mg/dL Assessment and Plan Plan: Acute COVID-19 infection, received vaccination x 3 in the past, no prior COVID- 19 infection documented Acute hypoxic respiratory failure, likely due to COVID-19 infection with a component of CHF exacerbation. The patient is currently on oxygen at 2 L/min nasal cannula Acute dyspnea, secondary to suspected to be related to COVID 19 with a component of diastolic CHF exacerbation, Chest x-ray shows cardiomegaly/pulmonary vascular congestion. Most recent echocardiogram done 10/22/2023, which was a limited study, estimated LV ejection fraction was approximately 45 to 50%. Subsequently cardiac stress test on 02/11/2024 showed no reversible ischemia and there is an old anterior wall fixed defect. Obesity chronic atrial fibrillation status/post cardiac ablation, performed on 10/31/2023 Sinus bradycardia, post pacemaker insertion Coronary artery disease, with previous history of PCI/stenting to the LAD History of hypertension History of hyperlipidemia History of diabetes mellitus Morbid obesity with a BMI of 43.3 kg/m History of moderate obstructive sleep apnea, with an AHI of 26, maintained on CPAP at home with a pressure support of 8, will not be able to tolerate full facemask currently with nasal fractures Lifetime non-smoker Plan Wean down FiO2 as tolerated Clinically improving and will continue same treatment Titrate oxygen flow to maintain saturation above 90% IV steroids and the patient is currently on IV Solu-Medrol Check inflammatory markers including procalcitonin, LDH and CRP, all of the inflammatory markers are nonelevated Continue diuretics with Lasix and Aldactone Resume home medications Antibiotic coverage is empiric, it can be essentially discontinued Utilize CPAP machine from home with a pressure of 8 cm of water Continue Plavix Continue Xarelto We will continue to follow
[2024-05-01 15:58] LABS: African American GFR (CKD) 48 (>60 ml/min/1.73 sqM); Anion Gap 7 mmol/L; Blood Urea Nitrogen 63 mg/dL (7-17); Calcium 10.1 mg/dL (8.4-10.2); Carbon Dioxide 26 mmol/L (22-30); Chloride 106 mmol/L (98-107); Glucose 250 mg/dL (74-99); Non-African American GFR(CKD) 42 (>60 ml/min/1.73 sqM); Potassium 4.9 mmol/L (3.5-5.1); Sodium 139 mmol/L (137-145)
[2024-05-01 16:49] LABS: Glucose,Whole Blood 303 mg/dL (70-110)
[2024-05-01 20:30] LABS: Glucose,Whole Blood 334 mg/dL (70-110)
[2024-05-02 06:52] LABS: Glucose,Whole Blood 272 mg/dL (70-110)
[2024-05-02] MEDS: INSULIN DETEMIR (LEVEMIR) 100 UNIT/ML SYR SQ SCH (07:02)
[2024-05-02 11:25] LABS: Glucose,Whole Blood 326 mg/dL (70-110)
--- NOTE | 2024-05-02 15:25 | P.PN ---
Subjective Progress Note Date: 05/02/24 This is a 68-year-old female patient, seen in the emergency department because of worsening shortness of breath. The patient is obese with a body mass index of 42. The patient is known to have coronary disease with previous coronary stenting, chronic A-fib, CHF, hypertension hyperlipidemia obstructive sleep apnea along with history of diabetes mellitus. He is also known to have previous history of pacemaker insertion implanted on 11/25/2023 for sick sinus syndrome and symptomatic bradycardia. Her baseline left-sided ejection fraction is in order of 45%. The patient came into the hospital because of worsening shortness of breath, cough and congestion and wheezing. She was found to be hypoxic and currently she is on 2 L of oxygen by nasal cannula. Noted the patient is a lifetime non-smoker. In the hospital, the patient was found to have a COVID-19 infection. Her symptoms started approximately 2 days ago. The patient received vaccination in the past including a total of 3 shots for COVID- 19 as part of her vaccination since the beginning of pandemic. No previous history of COVID-19 infection that has been documented in this patient. Chest x-ray done in the emergency was consistent with CHF with cardiomegaly and pulm vascular congestion. Her most recent cardiac stress test was done on 02/09 and 02/11/2024 that showed large area of remote insult over the anterior wall without any reversible ischemia. Estimated ejection fraction was 51%. Currently, the patient is on IV Solu-Medrol 40 mg every 12 hours. Home medication resumed. She remains on long-term anticoagulation with Xarelto. She is also on a combination of Lasix and Aldactone. She is on Levemir insulin 10 units daily + scale coverage. She remains on Plavix. On 05/01/2024, the patient is being seen for a follow-up. The patient is being treated for acute COVID-19 infection that was further complicated by a component of CHF exacerbation and hypoxic respiratory failure. The patient is doing better compared to yesterday. She is currently on 2 L with a pulse ox of 98%. No fever. No chills. No hemodynamic instability. She remains on IV Solu- Medrol 40 mg every 12 hours. She remains on Aldactone 50 mg p.o. daily and Lasix 40 mg p.o. daily. She remains on anticoagulation with Xarelto 20 mg p.o. daily. Note that her hemoglobin A1c was at 8.2. The patient's procalcitonin level was 0.18. proBNP level was 1480. LDH was 255 and CRP was 3.2. The white cell count is at 7.5 with a hemoglobin of 11.2. No new complaints otherwise for now. On 05/02/2024, the patient is being seen for a follow-up. The patient is doing well. She is currently on room air oxygen with a pulse ox of 93%. Blood sugars are slightly elevated and the patient receiving systemic steroids. The patient remains on IV Solu-Medrol 40 mg every 12 hours. She is also on IV Rocephin as the patient was found to have a gram-negative urinary tract infection and final cultures still pending. Creatinine is at 1.3, BUN 63, the white cell count of 7.5. Objective - Vital Signs Vital signs: Vital Signs Temp 97.7 F 05/02/24 07:32 Pulse 62 05/02/24 12:02 Resp 19 05/02/24 12:02 BP 169/84 05/02/24 07:32 Pulse Ox 90 L 05/02/24 09:02 FiO2 Intake & Output 05/01/24 05/02/24 05/02/24 18:59 06:59 18:59 Intake Total 300 100 Balance 300 100 Intake: Oral 300 100 Other: Voiding Method Toilet Toilet Toilet Diaper Diaper # Voids 1 - Exam The patient appeared well nourished and normally developed. Vital signs as documented. The patient is currently on 2 L of oxygen by nasal cannula Head exam is unremarkable. No scleral icterus or corneal arcus noted. Neck is without jugular venous distension, thyromegaly, or carotid bruits. Carotid upstrokes are brisk bilaterally. Lungs are clear to auscultation and percussion. Diminished breath sounds along with few crackles in the lung base bilaterally Cardiac exam reveals the PMI to be normally sized and situated. Rhythm is regular. First and second heart sounds normal. No murmurs, rubs or gallops. Abdominal exam reveals normal bowel sounds, no masses, no organomegaly and no aortic enlargement. Extremities are nonedematous and both femoral and pedal pulses are normal. Examination of the skin revealed no evidence of significant rashes, suspicious appearing nevi or other concerning lesions. Neurologically, the patient is awake and alert and the patient does not have any focal neurological deficit. Cranial nerves are essentially intact. - Labs CBC & Chem 7: 05/01/24 07:39 05/01/24 07:39 Labs: Abnormal Lab Results - Last 24 Hours (Table) 05/01/24 05/01/24 05/01/24 Range/Units 07:39 15:21 16:48 BUN 63 H (7-17) mg/dL Creatinine 1.30 H (0.52-1.04) mg/dL Glucose 250 H (74-99) mg/dL POC Glucose (mg/dL) 306 H 303 H (70-110) mg/dL 05/01/24 05/02/24 05/02/24 Range/Units 20:29 06:51 11:24 BUN (7-17) mg/dL Creatinine (0.52-1.04) mg/dL Glucose (74-99) mg/dL POC Glucose (mg/dL) 334 H 272 H 326 H (70-110) mg/dL Microbiology - Last 24 Hours (Table) 04/29/24 22:37 Urine Culture - Preliminary Urine,Voided Gram Neg Bacilli Assessment and Plan Plan: Acute COVID-19 infection, received vaccination x 3 in the past, no prior COVID- 19 infection documented Acute hypoxic respiratory failure, likely due to COVID-19 infection with a component of CHF exacerbation. The patient is currently on room air oxygen Acute dyspnea, secondary to suspected to be related to COVID 19 with a component of diastolic CHF exacerbation, Chest x-ray shows cardiomegaly/pulmonary vascular congestion. Most recent echocardiogram done 10/22/2023, which was a limited study, estimated LV ejection fraction was approximately 45 to 50%. Subsequently cardiac stress test on 02/11/2024 showed no reversible ischemia and there is an old anterior wall fixed defect. Gram-negative UTI Obesity chronic atrial fibrillation status/post cardiac ablation, performed on 10/31/2023 Sinus bradycardia, post pacemaker insertion Coronary artery disease, with previous history of PCI/stenting to the LAD History of hypertension History of hyperlipidemia History of diabetes mellitus Morbid obesity with a BMI of 43.3 kg/m History of moderate obstructive sleep apnea, with an AHI of 26, maintained on CPAP at home with a pressure support of 8, will not be able to tolerate full facemask currently with nasal fractures Lifetime non-smoker Plan Wean down FiO2 as tolerated, the patient is currently on room air oxygen. No respiratory difficulties for now. Clinically improving and will continue same treatment Titrate oxygen flow to maintain saturation above 90% IV steroids and the patient is currently on IV Solu-Medrol, this will be transition to prednisone burst taper over the next 24 hours. Check inflammatory markers including procalcitonin, LDH and CRP, all of the inflammatory markers are nonelevated IV Rocephin for an underlying urinary tract infection, pending final cultures, she has a gram-negative bacillus in her urine Continue diuretics with Lasix and Aldactone Resume home medications Utilize CPAP machine from home with a pressure of 8 cm of water Continue Plavix Continue Xarelto We will continue to follow
--- NOTE | 2024-05-02 16:22 | P.PN ---
Subjective Progress Note Date: 05/02/24 Interval History: Luz Swann is a 68 yo F with PMH significant for recent PPM, cardiac ablation, cardioversion, coronary artery disease with previous stenting, persistent atrial fibrillation, cardiomyopathy hypertension, hyperlipidemia, obesity, obstructive sleep apnea, diabetes, and cardiomyopathy presented to the ER with complaints of dyspnea, increased weakness over the last 24 to 48 hours accompanied by ongoing nonproductive cough greater than 2 weeks. Denies chills, fevers, sore throat, body aches, sick contacts, headache or lightheadedness. On admission O2 sats initially 92% on room air, dropped down to 85% on room air, febrile with Tmax of 101, WBC 4.2 . Hemoglobin 10.6, platelets 103. Electrolytes within normal limits. Bicarb 24, BUN 55, creatinine decreased to 1.13 (baseline 0.9-1). chest x-ray reports cardiomegaly, mild pulmonary vascular congestion.pro.BNP ordered. Aldactone increased. currently maintaining O2 sats in the 90s on 2 L nasal cannula. UA positive for nitrates, large leukocytes, many bacteria. 05/01/2024 maintained on diuretics, bronchodilators, IV steroids, respiratory status slowly improving. Reports less shortness of breath. maintained O2 sats in the 90s on on 2 L nasal cannula O2 .blood sugars uncontrolled .hemoglobin A1c 8.2 .her significant other has just been diagnosed with COVID as well. Empiric antibiotics for potential UTI, culture in progress. BMP pending. afebrile, normal WBC. Procalcitonin normal, 0.18. LDH and CRP elevated at 255, 3.20. 05/02/2024: Patient was seen and examined today. Patient is being treated for acute hypoxic respiratory failure secondary to acute COVID-19 infection and acute CHF exacerbation. Patient condition improving. Patient currently on room air. Patient complaining of generalized weakness and bodyaches, shortness of breath is gradually improving, complains of worsening cough, started on Robitussin. Patient is currently on IV Solu-Medrol, pulmonary following. Patient currently on Rocephin for UTI. No new labs from today. Patient remained afebrile. Assessment and plan: Acute hypoxic respiratory failure: Acute COVID-19 infection: Acute on chronic systolic CHF with EF 45 to 50%: UTI: Chronic atrial fibrillation status post ablation October 2023 Sinus bradycardia status post pacemaker Coronary artery disease status post history of PCI Hypertension Hyperlipidemia Diabetes mellitus Morbid obesity Moderate obstructive sleep apnea on CPAP Plan: Patient improving, wean off oxygen as tolerated, currently on room air, currently on IV steroids, on Rocephin for UTI On diuretics with Lasix and Aldactone due to concern for component of acute CHF exacerbation, CPAP nightly Continue home meds Anticoagulated with Xarelto Pulmonary consulted and following DVT prophylaxis: Anticoagulated Monitor vital signs and labs Labs and medication were reviewed. Continue same treatment. Further recommendations as per clinical course of the patient PHYSICAL EXAMINATION: GENERAL: The patient is A&O x3, NAD HEENT: EOMI, Sclerae anicteric, Moist Mucous membranes Neck: Supple, Non tender, No JVD PULMONARY: Equal breath souds B/L, mild wheezing. CARDIOVASCULAR: S1, S2 present. No murmurs, rubs, or gallops. ABDOMEN: Soft, nontender, nondistended, normoactive bowel sounds. No guarding or rebound tenderness. MUSCULOSKELETAL: No edema, No cyanosis. No clubbing. Normal ROM. Intact peripheral pulses. EXTREMITIES: No cyanosis, clubbing, or pedal edema. NEUROLOGICAL: CN 2-12 grossly intact. No FND Skin: No Rash REVIEW OF SYSTEMS: CONSTITUTIONAL: Generalized weakness CARDIOVASCULAR: No chest pain, palpitations or syncope. PULMONARY: Complains of shortness of breath, cough. GASTROINTESTINAL: No nausea, vomiting, diarrhea, abdominal pain. : No Dysuria, urgency, frequency. Extremities: No edema. NEUROLOGICAL: No headaches, no weakness, or numbness Dictation was produced using [employer] dictation software. please excuse any grammatical, word or spelling errors. Objective - Vital Signs Vital signs: Vital Signs Temp 97.7 F 05/02/24 13:55 Pulse 61 05/02/24 13:55 Resp 18 05/02/24 13:55 BP 148/78 05/02/24 13:55 Pulse Ox 93 L 05/02/24 13:55 FiO2 Intake & Output 05/01/24 05/02/24 05/02/24 18:59 06:59 18:59 Intake Total 300 100 Balance 300 100 Intake: Oral 300 100 Other: Voiding Method Toilet Toilet Toilet Diaper Diaper # Voids 1 - Labs CBC & Chem 7: 05/01/24 07:39 05/01/24 07:39 Labs: Abnormal Lab Results - Last 24 Hours (Table) 05/01/24 05/01/24 05/02/24 Range/Units 16:48 20:29 06:51 POC Glucose (mg/dL) 303 H 334 H 272 H (70-110) mg/dL 05/02/24 Range/Units 11:24 POC Glucose (mg/dL) 326 H (70-110) mg/dL Microbiology - Last 24 Hours (Table) 04/29/24 22:37 Urine Culture - Preliminary Urine,Voided Gram Neg Bacilli
[2024-05-02 16:29] LABS: Glucose,Whole Blood 287 mg/dL (70-110)
[2024-05-02 21:16] LABS: Glucose,Whole Blood 271 mg/dL (70-110)
[2024-05-02] MEDS: guaiFENesin SYRUP 100MG/5ML 200 MG/10 ML CUP PO PRN (22:06)
[2024-05-03] MEDS: METOPROLOL TARTRATE 5 MG/5 ML VIAL IVP PRN (05:19)
[2024-05-03 06:22] LABS: Glucose,Whole Blood 228 mg/dL (70-110)
[2024-05-03 09:42] LABS: Glucose,Whole Blood 279 mg/dL (70-110)
[2024-05-03] MEDS ORDERED: DEXTROSE 5% IN WATER 100 ML with AMIODARONE 150 MG IV PRN (09:49)
[2024-05-03] MEDS ORDERED: AMIODARONE 360 MG in DEXTROSE 5% IN WATER 200 ML IV PRN (09:49)
[2024-05-03] MEDS: METOPROLOL TARTRATE 25 MG TAB PO STA (09:57)
[2024-05-03 11:47] LABS: Glucose,Whole Blood 327 mg/dL (70-110)
--- NOTE | 2024-05-03 13:05 | P.PN ---
Subjective Progress Note Date: 05/03/24 This is a 68-year-old female patient, seen in the emergency department because of worsening shortness of breath. The patient is obese with a body mass index of 42. The patient is known to have coronary disease with previous coronary stenting, chronic A-fib, CHF, hypertension hyperlipidemia obstructive sleep apnea along with history of diabetes mellitus. He is also known to have previous history of pacemaker insertion implanted on 11/25/2023 for sick sinus syndrome and symptomatic bradycardia. Her baseline left-sided ejection fraction is in order of 45%. The patient came into the hospital because of worsening shortness of breath, cough and congestion and wheezing. She was found to be hypoxic and currently she is on 2 L of oxygen by nasal cannula. Noted the patient is a lifetime non-smoker. In the hospital, the patient was found to have a COVID-19 infection. Her symptoms started approximately 2 days ago. The patient received vaccination in the past including a total of 3 shots for COVID- 19 as part of her vaccination since the beginning of pandemic. No previous history of COVID-19 infection that has been documented in this patient. Chest x-ray done in the emergency was consistent with CHF with cardiomegaly and pulm vascular congestion. Her most recent cardiac stress test was done on 02/09 and 02/11/2024 that showed large area of remote insult over the anterior wall without any reversible ischemia. Estimated ejection fraction was 51%. Currently, the patient is on IV Solu-Medrol 40 mg every 12 hours. Home medication resumed. She remains on long-term anticoagulation with Xarelto. She is also on a combination of Lasix and Aldactone. She is on Levemir insulin 10 units daily + scale coverage. She remains on Plavix. On 05/01/2024, the patient is being seen for a follow-up. The patient is being treated for acute COVID-19 infection that was further complicated by a component of CHF exacerbation and hypoxic respiratory failure. The patient is doing better compared to yesterday. She is currently on 2 L with a pulse ox of 98%. No fever. No chills. No hemodynamic instability. She remains on IV Solu- Medrol 40 mg every 12 hours. She remains on Aldactone 50 mg p.o. daily and Lasix 40 mg p.o. daily. She remains on anticoagulation with Xarelto 20 mg p.o. daily. Note that her hemoglobin A1c was at 8.2. The patient's procalcitonin level was 0.18. proBNP level was 1480. LDH was 255 and CRP was 3.2. The white cell count is at 7.5 with a hemoglobin of 11.2. No new complaints otherwise for now. On 05/02/2024, the patient is being seen for a follow-up. The patient is doing well. She is currently on room air oxygen with a pulse ox of 93%. Blood sugars are slightly elevated and the patient receiving systemic steroids. The patient remains on IV Solu-Medrol 40 mg every 12 hours. She is also on IV Rocephin as the patient was found to have a gram-negative urinary tract infection and final cultures still pending. Creatinine is at 1.3, BUN 63, the white cell count of 7.5. On 05/03/2024, the patient developed atrial fibrillation with rapid ventricular response. The patient is to be started on amiodarone. Meanwhile, the patient is maintained on metoprolol 25 mg twice a day. The patient remains on Xarelto. In regards to her COPD exacerbation COVID-19 infection, she remains stable. She is currently on room air oxygen with a pulse ox of 94%. No chest pain. No altered mentation. No nausea or vomiting. Physician Office Secretary on the case regarding the atrial fibrillation. She is still encountering some shortness of breath and generalized bodyaches and weakness. She has a Klebsiella pneumoniae tract infection remains on IV Rocephin. Objective - Vital Signs Vital signs: Vital Signs Temp 98.2 F 05/03/24 07:10 Pulse 58 L 05/03/24 07:10 Resp 17 05/03/24 07:10 BP 146/65 05/03/24 07:10 Pulse Ox 94 L 05/03/24 07:10 FiO2 Intake & Output 05/02/24 05/03/24 05/03/24 18:59 06:59 18:59 Intake Total 200 Balance 200 Intake: Oral 200 Other: Voiding Method Toilet Toilet Diaper # Voids 1 - Exam The patient appeared well nourished and normally developed. Vital signs as documented. The patient is currently on room air oxygen Head exam is unremarkable. No scleral icterus or corneal arcus noted. Neck is without jugular venous distension, thyromegaly, or carotid bruits. Car otid upstrokes are brisk bilaterally. Lungs are clear to auscultation and percussion. Diminished breath sounds along with few crackles in the lung base bilaterally Cardiac exam reveals the PMI to be normally sized and situated. Rhythm is irregular consistent with atrial fibrillation and the patient is somewhat tachycardic. First and second heart sounds normal. No murmurs, rubs or gallops. Abdominal exam reveals normal bowel sounds, no masses, no organomegaly and no aortic enlargement. Extremities are nonedematous and both femoral and pedal pulses are normal. Examination of the skin revealed no evidence of significant rashes, suspicious appearing nevi or other concerning lesions. Neurologically, the patient is awake and alert and the patient does not have any focal neurological deficit. Cranial nerves are essentially intact. - Labs CBC & Chem 7: 05/01/24 07:39 05/01/24 07:39 Labs: Abnormal Lab Results - Last 24 Hours (Table) 05/02/24 05/02/24 05/02/24 Range/Units 11: 16:28 21:15 POC Glucose (mg/dL) 326 H 287 H 271 H (70-110) mg/dL 05/03/24 05/03/24 Range/Units 06:20 09:41 POC Glucose (mg/dL) 228 H 279 H (70-110) mg/dL Microbiology - Last 24 Hours (Table) 04/29/24 22:37 Urine Culture - Final Urine,Voided Klebsiella pneumoniae Assessment and Plan Plan: Acute COVID-19 infection, received vaccination x 3 in the past, no prior COVID- 19 infection documented Acute hypoxic respiratory failure, likely due to COVID-19 infection with a component of CHF exacerbation. The patient is currently on room air oxygen Acute dyspnea, secondary to suspected to be related to COVID 19 with a component of diastolic CHF exacerbation, Chest x-ray shows cardiomegaly/pulmonary vascular congestion. Most recent echocardiogram done 10/22/2023, which was a limited study, estimated LV ejection fraction was approximately 45 to 50%. Subsequently cardiac stress test on 02/11/2024 showed no reversible ischemia and there is an old anterior wall fixed defect. A-fib with RVR, currently metoprolol and Xarelto, the patient has performed an ablation on 10/31/2023 Klebsiella pneumonia urinary tract infection Obesity Sinus bradycardia, post pacemaker insertion Coronary artery disease, with previous history of PCI/stenting to the LAD History of hypertension History of hyperlipidemia History of diabetes mellitus Morbid obesity with a BMI of 43.3 kg/m History of moderate obstructive sleep apnea, with an AHI of 26, maintained on CPAP at home with a pressure support of 8, will not be able to tolerate full facemask currently with nasal fractures Lifetime non-smoker Plan Wean down FiO2 as tolerated, the patient is currently on room air oxygen. No respiratory difficulties for now Management of atrial fibrillation per cardiology. The patient to be started on amiodarone drip. The patient is also on metoprolol and anticoagulation with Xarelto.. Clinically stable Titrate oxygen flow to maintain saturation above 90% IV steroids and the patient is currently on IV Solu-Medrol, this will be tra nsition to prednisone burst taper over the next 24 hours. Check inflammatory markers including procalcitonin, LDH and CRP, all of the inflammatory markers are nonelevated IV Rocephin Continue diuretics with Lasix and Aldactone Resume home medications Utilize CPAP machine from home with a pressure of 8 cm of water Continue Plavix Continue Xarelto We will continue to follow
--- NOTE | 2024-05-03 14:05 | P.PN ---
Subjective Progress Note Date: 05/03/24 Interval History: Luz Swann is a 68 yo F with PMH significant for recent PPM, cardiac ablation, cardioversion, coronary artery disease with previous stenting, persistent atrial fibrillation, cardiomyopathy hypertension, hyperlipidemia, obesity, obstructive sleep apnea, diabetes, and cardiomyopathy presented to the ER with complaints of dyspnea, increased weakness over the last 24 to 48 hours accompanied by ongoing nonproductive cough greater than 2 weeks. Denies chills, fevers, sore throat, body aches, sick contacts, headache or lightheadedness. On admission O2 sats initially 92% on room air, dropped down to 85% on room air, febrile with Tmax of 101, WBC 4.2 . Hemoglobin 10.6, platelets 103. Electrolytes within normal limits. Bicarb 24, BUN 55, creatinine decreased to 1.13 (baseline 0.9-1). chest x-ray reports cardiomegaly, mild pulmonary vascular congestion.pro.BNP ordered. Aldactone increased. currently maintaining O2 sats in the 90s on 2 L nasal cannula. UA positive for nitrates, large leukocytes, many bacteria. 05/01/2024 maintained on diuretics, bronchodilators, IV steroids, respiratory status slowly improving. Reports less shortness of breath. maintained O2 sats in the 90s on on 2 L nasal cannula O2 .blood sugars uncontrolled .hemoglobin A1c 8.2 .her significant other has just been diagnosed with COVID as well. Empiric antibiotics for potential UTI, culture in progress. BMP pending. afebrile, normal WBC. Procalcitonin normal, 0.18. LDH and CRP elevated at 255, 3.20. 05/02/2024: Patient was seen and examined today. Patient is being treated for acute hypoxic respiratory failure secondary to acute COVID-19 infection and acute CHF exacerbation. Patient condition improving. Patient currently on room air. Patient complaining of generalized weakness and bodyaches, shortness of breath is gradually improving, complains of worsening cough, started on Robitussin. Patient is currently on IV Solu-Medrol, pulmonary following. Patient currently on Rocephin for UTI. No new labs from today. Patient remained afebrile. 05/03/2024 Patient was seen and examined today. Continue current shortness breath. Overnight patient went into A-fib with RVR, required IV Lopressor overnight, currently on p.o. Toprol-XL and Xarelto. Cardiology consulted, started on amiodarone. Respiratory status is stable. Currently on Rocephin for Klebsiella UTI. Assessment and plan: Acute hypoxic respiratory failure: Acute COVID-19 infection: Acute on chronic systolic CHF with EF 45 to 50%: UTI: A-fib with RVR: Chronic atrial fibrillation status post ablation October 2023 Sinus bradycardia status post pacemaker Coronary artery disease status post history of PCI Hypertension Hyperlipidemia Diabetes mellitus Morbid obesity Moderate obstructive sleep apnea on CPAP Plan: Patient improving, wean off oxygen as tolerated, currently on room air, currently on IV steroids, on Rocephin for UTI On diuretics with Lasix and Aldactone due to concern for component of acute CHF exacerbation, CPAP nightly Continue home meds Anticoagulated with Xarelto Pulmonary consulted and following Went into A-fib with RVR 05/03, started on amiodarone drip, cardiology consulted. DVT prophylaxis: Anticoagulated Monitor vital signs and labs Labs and medication were reviewed. Continue same treatment. Further recommendations as per clinical course of the patient PHYSICAL EXAMINATION: GENERAL: The patient is A&O x3, NAD HEENT: EOMI, Sclerae anicteric, Moist Mucous membranes Neck: Supple, Non tender, No JVD PULMONARY: Equal breath souds B/L, mild wheezing. CARDIOVASCULAR: S1, S2 present. No murmurs, rubs, or gallops. ABDOMEN: Soft, nontender, nondistended, normoactive bowel sounds. No guarding or rebound tenderness. MUSCULOSKELETAL: No edema, No cyanosis. No clubbing. Normal ROM. Intact peripheral pulses. EXTREMITIES: No cyanosis, clubbing, or pedal edema. NEUROLOGICAL: CN 2-12 grossly intact. No FND Skin: No Rash REVIEW OF SYSTEMS: CONSTITUTIONAL: Generalized weakness CARDIOVASCULAR: No chest pain, palpitations or syncope. PULMONARY: Complains of shortness of breath, cough. GASTROINTESTINAL: No nausea, vomiting, diarrhea, abdominal pain. : No Dysuria, urgency, frequency. Extremities: No edema. NEUROLOGICAL: No headaches, no weakness, or numbness Dictation was produced using [employer] software. please excuse any grammatical, word or spelling errors. Objective - Vital Signs Vital signs: Vital Signs Temp 98.2 F 05/03/24 07:10 Pulse 58 L 05/03/24 07:10 Resp 17 05/03/24 08:00 BP 146/65 05/03/24 07:10 Pulse Ox 94 L 05/03/24 07:10 FiO2 Intake & Output 05/02/24 05/03/24 05/03/24 18:59 06:59 18:59 Intake Total 200 Balance 200 Intake: Oral 200 Other: Voiding Method Toilet Toilet Toilet Diaper # Voids 1 - Labs CBC & Chem 7: 05/01/24 07:39 05/01/24 07:39 Labs: Abnormal Lab Results - Last 24 Hours (Table) 05/02/24 05/02/24 05/03/24 Range/Units 16:28 21:15 06:20 POC Glucose (mg/dL) 287 H 271 H 228 H (70-110) mg/dL 05/03/24 05/03/24 Range/Units 09:41 11:46 POC Glucose (mg/dL) 279 H 327 H (70-110) mg/dL Microbiology - Last 24 Hours (Table) 04/29/24 22:37 Urine Culture - Final Urine,Voided Klebsiella pneumoniae
[2024-05-03 14:07] LABS: Glucose,Whole Blood 310 mg/dL (70-110)
[2024-05-03] MEDS ORDERED: AMIODARONE 450 MG in DEXTROSE 5% IN WATER 250 ML IV PRN (16:00)
[2024-05-03 16:19] LABS: Glucose,Whole Blood 235 mg/dL (70-110)
[2024-05-03] MEDS: METOPROLOL TARTRATE 25 MG TAB PO SCH (18:50)
[2024-05-03 19:54] LABS: Glucose,Whole Blood 182 mg/dL (70-110)
[2024-05-04 06:07] LABS: Glucose,Whole Blood 316 mg/dL (70-110)
[2024-05-04 07:38] LABS: Anisocytosis Slight; Basophils % (A) 0 %; Eosinophils % (A) 0 %; HGB 12.3 gm/dL (11.4-16.0); Hypochromasia Slight; Lymphocytes # (A) 0.4 k/uL (1.0-4.8); Lymphocytes % (A) 8 %; MCH 27.1 pg (25.0-35.0); MCHC 32.4 g/dL (31.0-37.0); MCV 83.9 fL (80.0-100.0); Mean Platelet Volume 8.8; Microcytosis Slight; Monocytes # (A) 0.3 k/uL (0-1.0); Monocytes % (A) 6 %; Neutrophils # (A) 4.6 k/uL (1.3-7.7); Neutrophils % (A) 85 %; Platelet Count 156 k/uL (150-450); RBC 4.53 m/uL (3.80-5.40); RDW 18.8 % (11.5-15.5); WBC 5.4 k/uL (3.8-10.6)
[2024-05-04 08:24] LABS: African American GFR (CKD) 54 (>60 ml/min/1.73 sqM); Anion Gap 11 mmol/L; Blood Urea Nitrogen 67 mg/dL (7-17); Calcium 10.5 mg/dL (8.4-10.2); Carbon Dioxide 29 mmol/L (22-30); Chloride 100 mmol/L (98-107); Glucose 316 mg/dL (74-99); Magnesium 1.8 mg/dL (1.6-2.3); Non-African American GFR(CKD) 47 (>60 ml/min/1.73 sqM); Potassium 5.2 mmol/L (3.5-5.1); Sodium 140 mmol/L (137-145)
--- NOTE | 2024-05-04 10:12 | P.CRDCN ---
History of Present Illness History of present illness: HISTORY OF PRESENT ILLNESS: This is a 68-year-old female with a past medical history significant for cardiomyopathy, atrial fibrillation, cardioversion March 2023, ablation, and coronary artery disease with previous stenting. Patient follows in the office with Dr. Cabrales. We have been asked to see the patient in consultation for A-fib with RVR. Patient examined at the bedside. Patient is admitted to the hospital secondary to COVID infection. Patient went into A-fib with RVR yesterday and was transferred to [facility]. Patient's telemetry this morning appears to be sinus tachycardia with heart rate around 115. Patient reports feeling nauseated this morning and having some episodes of vomiting. She denies any chest pain or pressure. Denies any shortness of breath. She denies dizziness or palpitations. DIAGNOSTICS: - EKG on admission revealed sinus mechanism. Bedside telemetry appears to be sinus tachycardia. - Chest xray cardiomegaly and mild pulmonary vascular congestion - Laboratory data: WBC 5.4. Hemoglobin 12.3. Platelet count 156. Sodium 140. Potassium 5.2. BUN 67. Creatinine 1.18. - Current home cardiac medications include Plavix 75 mg daily, Lipitor 40 mg at night, metoprolol succinate 25 mg daily, Lasix 40 mg daily, Aldactone 25 mg daily, Xarelto 20 mg with dinner, Jardiance 10 mg daily - Most recent echocardiogram obtained in September 2023 revealed ejection fraction 45 to 50% with no pericardial effusion - Cardiac catheterization history: February 2023 with stenting of the mid LAD - Patient underwent Lexiscan stress test in January 2024 which was negative for ischemia REVIEW OF SYSTEMS: At the time of my exam: CONSTITUTIONAL: Denies fever or chills. HEENT: Denies blurred vision, vision changes, or eye pain. Denies hemoptysis CARDIOVASCULAR: Denies chest pain. Denies orthopnea. Denies PND. Denies palpitations RESPIRATORY: Denies shortness of breath. GASTROINTESTINAL: Denies abdominal pain. Denies nausea or vomiting. HEMATOLOGIC: Denies bleeding disorders. GENITOURINARY: Denies any blood in urine. SKIN: Denies pruitis. Denies rash. PHYSICAL EXAM: VITAL SIGNS: Reviewed. GENERAL: Well-developed in no acute distress. HEENT: Head is normocephalic. Pupils are equal, round. Sclerae anicteric. Mucous membranes of the mouth are moist. Neck supple. No JVD or thyromegaly LUNGS: Respirations even and unlabored. Lungs essentially clear to auscultation bilaterally. HEART: Tachycardic. Regular rate and rhythm. S1 and S2 heard. ABDOMEN: Soft. Nondistended. Nontender. EXTREMITIES: Normal range of motion. No clubbing or cyanosis. Peripheral pulses intact. No lower extremity edema NEUROLOGIC: Awake and alert. Oriented x 3. ASSESSMENT: Acute COVID-19 Nausea and vomiting Paroxysmal atrial fibrillation with RVR Mild ischemic cardiomyopathy, 45 to 50% Coronary artery disease with previous stenting to the mid LAD, 02/2023 Known severe disease of diagonal 1 (small vessel) History of cardioversion, March 2023 History of A-fib ablation, October 2023 Hypertension Hyperlipidemia Diabetes Obesity: BMI 40.1 PLAN: Obtain EKG this morning to verify if patient is in sinus mechanism Increase metoprolol to 50 mg twice a day Continue additional cardiac medications Continue telemetry monitoring Further recommendations pending patient course Patient to follow-up postdischarge with Dr. Cabrales Nurse practitioner note has been reviewed by physician. Signing provider agrees with the documented findings, assessment, and plan of care documented by [employer] as a scribe. Past Medical History Past Medical History: Atrial Fibrillation, Asthma, Coronary Artery Disease (CAD), Diabetes Mellitus, GERD/Reflux, GI Bleed, Hyperlipidemia, Hypertension, Osteoarthritis (OA) Additional Past Medical History / Comment(s): See Dr Cabrales's H&P. see dr garcia's H & P, ashthma with oxygen use, perm pacemaker History of Any Multi-Drug Resistant Organisms: None Reported Past Surgical History: Appendectomy, Section, Cholecystectomy, Heart Catheterization With Stent, Hysterectomy, Joint Replacement, Orthopedic Surgery Additional Past Surgical History / Comment(s): Bilateral carpal tunnel, bilateral total knee replacements, colonoscopy, EGD. thumb surgery x 2 Past Anesthesia/Blood Transfusion Reactions: Previous Problems w/ Anesthesia Additional Past Anesthesia/Blood Transfusion Reaction / Comment(s): Had spinal fluid leak w/ prior spinal for knee surgery-stated was told not to have spinals. No problems with blood transfusion received 30-40 yrs ago. Date of Last Stent Placement:: 2022 Past Psychological History: No Psychological Hx Reported Smoking Status: Never smoker Past Alcohol Use History: None Reported Past Drug Use History: None Reported - Past Family History Mother Family Medical History: No Reported History Medications and Allergies Home Medications Medication Instructions Recorded Confirmed Type Omeprazole 20 mg PO HS 06/04/16 04/29/24 History Rivaroxaban [Xarelto] 20 mg PO W/SUPPER 06/04/16 04/29/24 History allopurinoL [Zyloprim] 300 mg PO DAILY 06/04/16 04/29/24 History Cholecalciferol [Vitamin D3 (25 25 mcg PO DAILY 09/03/22 04/29/24 History Mcg = 1000 Iu)] oxyBUTYnin chloride [Ditropan] 5 mg PO DAILY 09/03/22 04/29/24 History Pregabalin [Lyrica] 150 mg PO TID 11/17/22 04/29/24 History Nitroglycerin Sl Tabs [Nitrostat] 0.4 mg SUBLINGUAL Q5M PRN #50 tab 03/09/23 04/29/24 Rx Cetirizine HCl [Zyrtec] 10 mg PO DAILY 04/11/23 04/29/24 History Empagliflozin [Jardiance] 10 mg PO DAILY 04/11/23 04/29/24 History Ferrous Sulfate [Iron (65 MG 325 mg PO DAILY 04/11/23 04/29/24 History Elemental)] HYDROcodone/APAP 10-325MG [Brickeys 1 tab PO QID 10/22/23 04/29/24 History 10-325] Insulin Aspart [NovoLOG Flexpen] 10 - 12 units SQ PC-TID 10/22/23 04/29/24 History Levothyroxine Sodium [Synthroid] 50 mcg PO DAILY@0630 30 Days #30 10/26/23 04/29/24 Rx tab Tamsulosin [Flomax] 0.4 mg PO PC-BRKFST 30 Days #30 cap 10/26/23 04/29/24 Rx Amitriptyline HCl [Elavil] 10 mg PO HS 04/29/24 04/29/24 History Atorvastatin [Lipitor] 40 mg PO HS 04/29/24 04/29/24 History Azelastine HCl [Astelin Nasal 1 spray EA NOSTRIL BID 04/29/24 04/29/24 History Rosholt] Clopidogrel [Plavix] 75 mg PO DAILY 04/29/24 04/29/24 History Furosemide [Lasix] 40 mg PO DAILY 04/29/24 04/29/24 History Losartan/Hydrochlorothiazide 1 tab PO DAILY 04/29/24 04/29/24 History [Losartan-Hctz 100-25 mg Tab] Metoprolol Succinate [Metoprolol 25 mg PO DAILY 04/29/24 04/29/24 History Succinate ER] Spironolactone [Aldactone] 25 mg PO DAILY 04/29/24 04/29/24 History Tirzepatide [Mounjaro] 10 mg SQ FR 04/29/24 04/29/24 History metFORMIN HCL [Glucophage] 500 mg PO BID 04/29/24 04/29/24 History Allergies Allergy/AdvReac Type Severity Reaction Status Date / Time No Known Allergies Allergy Verified 04/29/24 20:50 Physical Exam Vitals: Vital Signs Temp Pulse Resp BP Pulse Ox 05/04/24 09:34 92 L 05/04/24 03:08 102 H 18 116/63 93 L 05/03/24 23:31 98 17 133/72 95 05/03/24 20:24 98.7 F 109 H 18 112/72 97 05/03/24 17:03 98.7 F 87 17 118/87 100 05/03/24 14:05 66 20 155/70 95 Intake and Output 05/03/24 05/04/24 05/04/24 22:59 06:59 14:59 Intake Total 20 118 Balance 20 118 Intake: IV 20 Invasive Line 2 20 Oral 118 Other: Voiding Method Toilet # Voids 1 Weight 112.7 kg Results 05/04/24 06:04 05/04/24 06:04 CBC 05/04/24 Range/Units 06:04 WBC 5.4 (3.8-10.6) k/uL RBC 4.53 (3.80-5.40) m/uL Hgb 12.3 (11.4-16.0) gm/dL Hct 38.0 (34.0-46.0) % Plt Count 156 (150-450) k/uL Comprehensive Metabolic Panel 05/04/24 Range/Units 06:04 Sodium 140 (137-145) mmol/L Potassium 5.2 H (3.5-5.1) mmol/L Chloride 100 (98-107) mmol/L Carbon Dioxide 29 (22-30) mmol/L BUN 67 H (7-17) mg/dL Creatinine 1.18 H (0.52-1.04) mg/dL Glucose 316 H (74-99) mg/dL Calcium 10.5 H (8.4-10.2) mg/dL Current Medications Generic Name Dose Route Start Last Admin Trade Name Freq PRN Reason Stop Dose Admin Acetaminophen 650 mg 04/29/24 22:09 Acetaminophen Tab 325 Mg Tab PO Q6HR PRN Mild Pain or Fever > 100.5 Albuterol Sulfate 2 puff 04/30/24 09:00 05/04/24 09:32 Albuterol Hfa Inhaler INHALATION 2 puff QID RAFFI Administration Allopurinol 300 mg 04/30/24 09:00 05/04/24 08:54 Allopurinol 300 Mg Tab PO 300 mg DAILY RAFFI Administration Amitriptyline HCl 10 mg 04/30/24 21:00 05/03/24 21:01 Amitriptyline Hcl 10 Mg Tab PO 10 mg HS RAFFI Administration Ascorbic Acid 500 mg 04/30/24 11:15 05/04/24 08:54 Ascorbic Acid 500 Mg Tab PO 500 mg BID RAFFI Administration Atorvastatin Calcium 40 mg 04/30/24 21:00 05/03/24 20:25 Atorvastatin 40 Mg Tab PO 40 mg HS RAFFI Administration Azelastine HCl 1 spray 04/30/24 09:00 05/04/24 08:56 Azelastine 137mcg/Rosholt EA NOSTRIL 1 spray BID RAFFI Administration Cholecalciferol 50 mcg 04/30/24 11:15 05/04/24 08:54 Cholecalciferol 25 Mcg (1000 Iu) Tablet PO 50 mcg DAILY RAFFI Administration Clopidogrel Bisulfate 75 mg 04/30/24 09:00 05/04/24 08:54 Clopidogrel 75 Mg Tab PO 75 mg DAILY RAFFI Administration Dextrose/Water 25 ml 04/30/24 08:23 Dextrose 50% Syringe 50 Ml IVP PER PROTOCOL PRN Hypoglycemia Protocol Dextrose/Water 50 ml 04/30/24 08:23 Dextrose 50% Syringe 50 Ml IVP PER PROTOCOL PRN Hypoglycemia Protocol Famotidine 20 mg 05/04/24 09:30 Famotidine 20 Mg Tab PO DAILY RAFFI Ferrous Sulfate 325 mg 04/30/24 09:00 05/04/24 08:55 Ferrous Sulfate 325 Mg Tab PO 325 mg DAILY RAFFI Administration Furosemide 40 mg 04/30/24 09:00 05/04/24 08:54 Furosemide 40 Mg Tab PO 40 mg DAILY RAFFI Administration Guaifenesin 200 mg 05/02/24 21:48 05/02/24 22:06 Guaifenesin Syrup 100mg/5ml 200 Mg/10 Ml Cup PO 200 mg Q6HR PRN Administration Cough HCTZ/Losartan Potassium 2 each 04/30/24 09:00 05/04/24 08:54 Losartan-Hctz 50-12.5 Mg 1 Each Tab PO 2 each DAILY RAFFI Administration Ceftriaxone Sodium 1 gm/ 50 mls @ 100 mls/hr 04/30/24 09:30 05/04/24 08:55 Sodium Chloride IVPB 100 mls/hr Q24HR [facility] Administration Protocol Ibuprofen 400 mg 04/29/24 22:09 Ibuprofen 400 Mg Tab PO Q6HR PRN Mild Pain or Fever > 100.5 Insulin Aspart 0 unit 04/30/24 12:30 05/04/24 06:32 Insulin Aspart (Novolog) 100 Unit/Ml Vial SQ 8 unit ACHS [facility] Administration Protocol Insulin Detemir 25 unit 05/04/24 09:00 Insulin Detemir (Levemir) 100 Unit/Ml Syr SQ DAILY@0700 [facility] Levothyroxine Sodium 50 mcg 04/30/24 06:30 05/04/24 06:32 Levothyroxine 50 Mcg Tab PO 50 mcg DAILY@0630 [facility] Administration Loratadine 10 mg 04/30/24 09:00 05/04/24 08:54 Loratadine 10 Mg Tab PO 10 mg DAILY [facility] Administration Methylprednisolone Sodium Succinate 40 mg 04/30/24 09:00 05/04/24 08:55 Methylprednisolone Sod Succi 40 Mg/Ml 1 Ml Vial IV 40 mg Q12HR RAFFI Administration Metoprolol Tartrate 5 mg 05/03/24 05:04 05/03/24 05:19 Metoprolol Tartrate 5 Mg/5 Ml Vial IVP 5 mg Q6HR PRN Administration Heart Rate - HIGH Metoprolol Tartrate 50 mg 05/04/24 21:00 Metoprolol Tartrate 50 Mg Tab PO BID RAFFI Naloxone HCl 0.2 mg 04/29/24 22:09 Naloxone 0.4 Mg/Ml 1 Ml Vial IV Q2M PRN Opioid Reversal Nitroglycerin 0.4 mg 04/30/24 08:22 Nitroglycerin Sl Tabs 0.4 Mg Tab SUBLINGUAL Q5M PRN Chest Pain Ondansetron HCl 4 mg 05/04/24 09:21 Ondansetron 4 Mg/2 Ml Vial IVP Q6HR PRN Nausea And Vomiting Oxybutynin Chloride 5 mg 04/30/24 09:00 05/04/24 08:54 Oxybutynin Chloride 5 Mg Tab PO 5 mg DAILY RAFFI Administration Pantoprazole Sodium 40 mg 04/30/24 21:00 05/03/24 20:25 Pantoprazole 40 Mg Tablet PO 40 mg HS RAFFI Administration Rivaroxaban 20 mg 04/30/24 17:30 05/03/24 17:02 Rivaroxaban 20 Mg Tab PO 20 mg W/SUPPER RAFFI Administration Protocol Spironolactone 50 mg 05/01/24 09:30 05/04/24 08:54 Spironolactone 25 Mg Tab PO 50 mg DAILY RAFFI Administration Tamsulosin HCl 0.4 mg 04/30/24 08:30 05/04/24 08:55 Tamsulosin 0.4 Mg Cap.Er.24h PO 0.4 mg PC-BRKFST RAFFI Administration Zinc Sulfate 220 mg 04/30/24 11:15 05/04/24 08:55 Zinc Sulfate 220 Mg Cap PO 220 mg DAILY RAFFI Administration Intake and Output 05/03/24 05/04/24 05/04/24 22:59 06:59 14:59 Intake Total 20 118 Balance 20 118 Intake: IV 20 Invasive Line 2 20 Oral 118 Other: Voiding Method Toilet # Voids 1 Weight 112.7 kg 05/04/24 06:04 05/04/24 06:04
[2024-05-04 11:31] LABS: Glucose,Whole Blood 329 mg/dL (70-110)
[2024-05-04] MEDS: FAMOTIDINE 20 MG TAB PO SCH (12:48)
[2024-05-04] MEDS: INSULIN DETEMIR (LEVEMIR) 100 UNIT/ML SYR SQ SCH (12:48)
[2024-05-04] MEDS: METOPROLOL TARTRATE 25 MG TAB PO STA (12:49)
--- NOTE | 2024-05-04 14:00 | P.PN ---
Subjective Progress Note Date: 05/04/24 Principal diagnosis: Acute COVID-19 infection This is a 68-year-old female patient, seen in the emergency department because of worsening shortness of breath. The patient is obese with a body mass index of 42. The patient is known to have coronary disease with previous coronary stenting, chronic A-fib, CHF, hypertension hyperlipidemia obstructive sleep apnea along with history of diabetes mellitus. He is also known to have previous history of pacemaker insertion implanted on 11/25/2023 for sick sinus syndrome and symptomatic bradycardia. Her baseline left-sided ejection fraction is in order of 45%. The patient came into the hospital because of worsening shortness of breath, cough and congestion and wheezing. She was found to be hypoxic and currently she is on 2 L of oxygen by nasal cannula. Noted the patient is a lifetime non-smoker. In the hospital, the patient was found to have a COVID-19 infection. Her symptoms started approximately 2 days ago. The patient received vaccination in the past including a total of 3 shots for COVID- 19 as part of her vaccination since the beginning of pandemic. No previous history of COVID-19 infection that has been documented in this patient. Chest x-ray done in the emergency was consistent with CHF with cardiomegaly and pulm vascular congestion. Her most recent cardiac stress test was done on 02/09 and 02/11/2024 that showed large area of remote insult over the anterior wall without any reversible ischemia. Estimated ejection fraction was 51%. Currently, the patient is on IV Solu-Medrol 40 mg every 12 hours. Home medication resumed. She remains on long-term anticoagulation with Xarelto. She is also on a combination of Lasix and Aldactone. She is on Levemir insulin 10 units daily + scale coverage. She remains on Plavix. On 05/01/2024, the patient is being seen for a follow-up. The patient is being treated for acute COVID-19 infection that was further complicated by a component of CHF exacerbation and hypoxic respiratory failure. The patient is doing better compared to yesterday. She is currently on 2 L with a pulse ox of 98%. No fever. No chills. No hemodynamic instability. She remains on IV Solu- Medrol 40 mg every 12 hours. She remains on Aldactone 50 mg p.o. daily and Lasix 40 mg p.o. daily. She remains on anticoagulation with Xarelto 20 mg p.o. daily. Note that her hemoglobin A1c was at 8.2. The patient's procalcitonin level was 0.18. proBNP level was 1480. LDH was 255 and CRP was 3.2. The white cell count is at 7.5 with a hemoglobin of 11.2. No new complaints otherwise for now. On 05/02/2024, the patient is being seen for a follow-up. The patient is doing well. She is currently on room air oxygen with a pulse ox of 93%. Blood sugars are slightly elevated and the patient receiving systemic steroids. The patient remains on IV Solu-Medrol 40 mg every 12 hours. She is also on IV Rocephin as the patient was found to have a gram-negative urinary tract infection and final cultures still pending. Creatinine is at 1.3, BUN 63, the white cell count of 7.5. On 05/03/2024, the patient developed atrial fibrillation with rapid ventricular response. The patient is to be started on amiodarone. Meanwhile, the patient is maintained on metoprolol 25 mg twice a day. The patient remains on Xarelto. In regards to her COPD exacerbation COVID-19 infection, she remains stable. She is currently on room air oxygen with a pulse ox of 94%. No chest pain. No altered mentation. No nausea or vomiting. Solar Design Engineer on the case regarding the atrial fibrillation. She is still encountering some shortness of breath and generalized bodyaches and weakness. She has a Klebsiella pneumoniae tract infection remains on IV Rocephin. Patient was seen today on 05/04/2024, patient is sitting in bed, does not seem to be in any distress, she has no cough no wheezing no shortness of breath, patient is receiving treatment for a urinary tract infection, she had some vague abdominal discomfort earlier today, during my evaluation the patient was asymptomatic. Patient is wondering if she could be discharged home, however the patient is to be seen by cardiology for atrial fibrillation, and the recommendation was to increase her metoprolol, obviously no plans to discharge the patient today. Pulmonary garrido the patient is doing well, and relatively asymptomatic. Objective - Vital Signs Vital signs: Vital Signs Temp 98.7 F 05/04/24 08:00 Pulse 115 H 05/04/24 08:00 Resp 18 05/04/24 08:00 BP 146/78 05/04/24 08:00 Pulse Ox 92 L 05/04/24 09:34 FiO2 Intake & Output 05/03/24 05/04/24 05/04/24 18:59 06:59 18:59 Intake Total 10 10 128 Balance 10 10 128 Weight 112.7 kg Intake: IV 10 10 10 Invasive Line 2 10 10 10 Oral 118 Other: Voiding Method Toilet Toilet # Voids 1 - Exam GENERAL: Revealed 68-year-old female in no distress, on room air Head: Atraumatic, normocephalic HEENT: PERRLA, EOMI, nonicteric no neck masses no JVD no stridor LUNGS: Symmetrical chest expansion clear throughout no crackles rhonchi or wheezes HEART: Normal S1-S2, no S3 gallop. No murmur ABDOMEN: Obese soft nontender No rebound no guarding EXTREMITIES: No clubbing edema or cyanosis NEUROLOGIC: Alert oriented x 3 no gross focal deficit Psychiatric: Normal mood affect and no mental status examination Skin: No rash - Labs CBC & Chem 7: 05/04/24 06:04 05/04/24 06:04 Labs: Abnormal Lab Results - Last 24 Hours (Table) 05/03/24 05/03/24 05/03/24 Range/Units 14:07 16:15 19:53 RDW (11.5-15.5) % Lymphocytes # (1.0-4.8) k/uL Potassium (3.5-5.1) mmol/L BUN (7-17) mg/dL Creatinine (0.52-1.04) mg/dL Glucose (74-99) mg/dL POC Glucose (mg/dL) 310 H 235 H 182 H (70-110) mg/dL Calcium (8.4-10.2) mg/dL 05/04/24 05/04/24 05/04/24 Range/Units 06:04 06:04 06:05 RDW 18.8 H (11.5-15.5) % Lymphocytes # 0.4 L (1.0-4.8) k/uL Potassium 5.2 H (3.5-5.1) mmol/L BUN 67 H (7-17) mg/dL Creatinine 1.18 H (0.52-1.04) mg/dL Glucose 316 H (74-99) mg/dL POC Glucose (mg/dL) 316 H (70-110) mg/dL Calcium 10.5 H (8.4-10.2) mg/dL 05/04/24 Range/Units 11:29 RDW (11.5-15.5) % Lymphocytes # (1.0-4.8) k/uL Potassium (3.5-5.1) mmol/L BUN (7-17) mg/dL Creatinine (0.52-1.04) mg/dL Glucose (74-99) mg/dL POC Glucose (mg/dL) 329 H (70-110) mg/dL Calcium (8.4-10.2) mg/dL Assessment and Plan Assessment: Impression Acute COVID-19 infection Acute hypoxic respiratory failure, likely due to COVID-19 infection with a component of CHF exacerbation. Improving Acute dyspnea, secondary to suspected to be related to COVID 19 with a component of diastolic CHF exacerbation, A-fib with RVR, currently metoprolol and Xarelto, the patient has performed an ablation on 10/31/2023, patient is being seen by cardiology Klebsiella urinary tract infection Obesity Sinus bradycardia, post pacemaker insertion Coronary artery disease, with previous history of PCI/stenting to the LAD History of hypertension History of hyperlipidemia History of diabetes mellitus Morbid obesity with a BMI of 43.3 kg/m History of moderate obstructive sleep apnea, with an AHI of 26, maintained on CPAP at home with a pressure support of 8, will not be able to tolerate full facemask currently with nasal fractures Lifetime non-smoker Recommendation: Continue present supportive care measures Patient is now off oxygen Cardiology to evaluate regarding her cardiac issues, Continue diuretics Continue home meds Patient to use CPAP at night with pressure of 8 cm of water Continue Xarelto and Plavix Will continue to follow Will clear the patient for discharge once cleared by cardiology Time with Patient: Less than 30
--- NOTE | 2024-05-04 14:28 | P.PN ---
Subjective Progress Note Date: 05/04/24 H&P Date: 04/30/24 Luz Swann is a 68 yo F with PMH significant for recent PPM, cardiac ablation, cardioversion, coronary artery disease with previous stenting, persistent atrial fibrillation, cardiomyopathy hypertension, hyperlipidemia, obesity, obstructive sleep apnea, diabetes, and cardiomyopathy presented to the ER with complaints of dyspnea, increased weakness over the last 24 to 48 hours accompanied by ongoing nonproductive cough greater than 2 weeks. Denies chills, fevers, sore throat, body aches, sick contacts, headache or lightheadedness. On admission O2 sats initially 92% on room air, dropped down to 85% on room air, febrile with Tmax of 101, WBC 4.2 . Hemoglobin 10.6, platelets 103. Electrolytes within normal limits. Bicarb 24, BUN 55, creatinine decreased to 1.13 (baseline 0.9-1). chest x-ray reports cardiomegaly, mild pulmonary vascular congestion.pro.BNP ordered. Aldactone increased. currently maintaining O2 sats in the 90s on 2 L nasal cannula. UA positive for nitrates, large leukocytes, many bacteria. 05/01/2024 maintained on diuretics, bronchodilators, IV steroids, respiratory status slowly improving. Reports less shortness of breath. maintained O2 sats in the 90s on on 2 L nasal cannula O2 .blood sugars uncontrolled .hemoglobin A1c 8.2 .her significant other has just been diagnosed with COVID as well. Empiric antibiotics for potential UTI, culture in progress. BMP pending. afebrile, normal WBC. Procalcitonin normal, 0.18. LDH and CRP elevated at 255, 3.20. 05/04/2024 Yesterday developed atrial fibrillation with RVR, transferred to telemetry.sitting up in chair, complaining of nausea with some emesis. Tachycardic, EKG ordered. Denies chest pain, palpitations or shortness of breath. Maintaining O2 sats In the high 90s on room air. Afebrile, normal WBC, hemoglobin 12.3, platelets 156, sodium 140, potassium 5.2, bicarb 29, BUN 67, creatinine 1.18. Maintained on ceftriaxone for acute UTI. Culture reporting Klebsiella pneumonia. EKG reporting atrial flutter/tachycardia with RVR, beta- lawson increased per cardiology. Objective - Vital Signs Vital signs: Vital Signs Temp 98.7 F 05/04/24 08:00 Pulse 115 H 05/04/24 08:00 Resp 18 05/04/24 08:00 BP 146/78 05/04/24 08:00 Pulse Ox 92 L 05/04/24 09:34 FiO2 Intake & Output 05/03/24 05/04/24 05/04/24 18:59 06:59 18:59 Intake Total 10 10 128 Balance 10 10 128 Weight 112.7 kg Intake: IV 10 10 10 Invasive Line 2 10 10 10 Oral 118 Other: Voiding Method Toilet Toilet # Voids 1 - Exam Gen: Obese, alert and oriented x 3, sitting up in chair,, NAD HEENT: NC, AT,conjunctiva pink, sclera anicteric. Neck: supple, no JVD CV: S1 and S2, tachycardic,no murmur Lungs: Unlabored, equal air entry , essentially clear throughout Abd: soft, non distended, nontender, positive bowel sounds Neuro: Cranial nerves II through XII grossly intact. No focal deficit. Skin: warm and dry - Labs CBC & Chem 7: 05/04/24 06:04 05/04/24 06:04 Labs: Abnormal Lab Results - Last 24 Hours (Table) 05/03/24 05/03/24 05/03/24 Range/Units 14:07 16:15 19:53 RDW (11.5-15.5) % Lymphocytes # (1.0-4.8) k/uL Potassium (3.5-5.1) mmol/L BUN (7-17) mg/dL Creatinine (0.52-1.04) mg/dL Glucose (74-99) mg/dL POC Glucose (mg/dL) 310 H 235 H 182 H (70-110) mg/dL Calcium (8.4-10.2) mg/dL 05/04/24 05/04/24 05/04/24 Range/Units 06:04 06:04 06:05 RDW 18.8 H (11.5-15.5) % Lymphocytes # 0.4 L (1.0-4.8) k/uL Potassium 5.2 H (3.5-5.1) mmol/L BUN 67 H (7-17) mg/dL Creatinine 1.18 H (0.52-1.04) mg/dL Glucose 316 H (74-99) mg/dL POC Glucose (mg/dL) 316 H (70-110) mg/dL Calcium 10.5 H (8.4-10.2) mg/dL 05/04/24 Range/Units 11:29 RDW (11.5-15.5) % Lymphocytes # (1.0-4.8) k/uL Potassium (3.5-5.1) mmol/L BUN (7-17) mg/dL Creatinine (0.52-1.04) mg/dL Glucose (74-99) mg/dL POC Glucose (mg/dL) 329 H (70-110) mg/dL Calcium (8.4-10.2) mg/dL Assessment and Plan Assessment: Acute COVID-19 infection Acute hypoxic respiratory failure secondary to the above Mild acute on chronic CHF exacerbation, systolic dysfunction, EF 45-50%, chest x-ray suggest mild pulmonary vascular congestion, BNP 1480 Acute UTI, culture reporting Klebsiella pneumoniae Acute on chronic paroxysmal A-fib with RVR Acute renal failure on admission, returned to baseline Chronic intermittent asthma Chronic anemia Permanent pacemaker implantation 11/25/2023 secondary to sick sinus syndrome with symptomatic bradycardia Recent cardiac ablation 10/31/2023 CAD, history of stenting to the LAD Hypertension Hyperlipidemia History of ischemic cardiomyopathy, EF 45% Diabetes mellitus II, hyperglycemic, A1c 8.2, further diabetic education outpatient in clinic, at follow-up with PCP Morbid obesity, BMI 42 Obstructive sleep apnea, uses CPAP Gait dysfunction, uses walker Plan: Continue on current medication regimen ,monitoring and symptomatic treatment. Discharge placed on hold, repeat EKG ordered. cardiology adjusting antiarrhythmics further. Continues on Plavix and Xarelto.Aggressive pulmonary toileting, diuretics, albuterol inhaler, steroids, zinc, vitamin D, vitamin C. IV steroids transitioned to oral. close monitoring of Accu-Cheks. Pulmonary following. Discharge planning in progress tentatively for tomorrow, pending continued improvement, cardiology's and pulmonary's final DC recommendations and clearance. The impression and plan of care has been dictated as directed. : I performed a history and examination of this patient, discussed the same with the dictator. I agree with the dictator's note ,documented as a scribe. Any additional findings or plans will be noted.
[2024-05-04 16:13] LABS: Glucose,Whole Blood 348 mg/dL (70-110)
[2024-05-04 20:01] LABS: Glucose,Whole Blood 318 mg/dL (70-110)
[2024-05-04] MEDS: ONDANSETRON 4 MG/2 ML VIAL IVP PRN (20:08)
[2024-05-04] MEDS: METOPROLOL TARTRATE 50 MG TAB PO SCH (20:10)
[2024-05-05 05:54] LABS: Glucose,Whole Blood 204 mg/dL (70-110)
[2024-05-05] MEDS: METOPROLOL TARTRATE 25 MG TAB PO SCH (09:18)
[2024-05-05] MEDS: DEXTROSE 5% IN WATER 100 ML with AMIODARONE 150 MG IV ONE (09:18)
[2024-05-05] MEDS: predniSONE 20 MG TAB PO SCH (09:19)
[2024-05-05] MEDS: FUROSEMIDE 20 MG TAB PO SCH (09:19)
[2024-05-05] MEDS ORDERED: fentaNYL (PF) 50 MCG/ML 5 ML AMP IVP PRN (09:22)
[2024-05-05] MEDS ORDERED: BENZOCAINE SPRAY 1 CAN TOPICAL PRN (09:22)
[2024-05-05] MEDS ORDERED: MIDAZOLAM 2 MG/2 ML VIAL IV PRN (09:22)
[2024-05-05] MEDS: AMIODARONE 360 MG in DEXTROSE 5% IN WATER 200 ML IV ONE (09:51)
[2024-05-05] MEDS: SODIUM CHLORIDE 0.9% 1,000 ML IV SCH (09:52)
--- NOTE | 2024-05-05 10:15 | P.PN ---
Subjective HISTORY OF PRESENT ILLNESS: This is a 68-year-old female with a past medical history significant for cardiomyopathy, atrial fibrillation, cardioversion March 2023, ablation, and coronary artery disease with previous stenting. Patient follows in the office with Dr. Cabrales. We have been asked to see the patient in consultation for A-fib with RVR. Patient examined at the bedside. Patient is admitted to the hospital secondary to COVID infection. Patient went into A-fib with RVR yesterday and was transferred to [facility]. Patient's telemetry this morning appears to be sinus tachycardia with heart rate around 115. Patient reports feeling nauseated this morning and having some episodes of vomiting. She denies any chest pain or pressure. Denies any shortness of breath. She denies dizziness or palpitations. DIAGNOSTICS: - EKG on admission revealed sinus mechanism. Bedside telemetry appears to be sinus tachycardia. - Chest xray cardiomegaly and mild pulmonary vascular congestion - Laboratory data: WBC 5.4. Hemoglobin 12.3. Platelet count 156. Sodium 140. Potassium 5.2. BUN 67. Creatinine 1.18. - Current home cardiac medications include Plavix 75 mg daily, Lipitor 40 mg at night, metoprolol succinate 25 mg daily, Lasix 40 mg daily, Aldactone 25 mg daily, Xarelto 20 mg with dinner, Jardiance 10 mg daily - Most recent echocardiogram obtained in September 2023 revealed ejection fraction 45 to 50% with no pericardial effusion - Cardiac catheterization history: February 2023 with stenting of the mid LAD - Patient underwent Lexiscan stress test in January 2024 which was negative for ischemia 05/05/2024 Patient examined this morning at the bedside. Patient states that she is still feeling unwell this morning. Patient has a basin in her lap. She reports nausea and dry heaves this morning. BUN this morning 67. EKG yesterday revealed atrial flutter. Patient remains in atrial flutter this morning with a heart rate around 120. PHYSICAL EXAM: VITAL SIGNS: Reviewed. GENERAL: Well-developed in no acute distress. HEENT: Head is normocephalic. Pupils are equal, round. Sclerae anicteric. Mucous membranes of the mouth are moist. Neck supple. No JVD or thyromegaly LUNGS: Respirations even and unlabored. Lungs essentially clear to auscultation bilaterally. HEART: Tachycardic. Regular rate and rhythm. S1 and S2 heard. ABDOMEN: Soft. Nondistended. Nontender. EXTREMITIES: Normal range of motion. No clubbing or cyanosis. Peripheral pulses intact. No lower extremity edema NEUROLOGIC: Awake and alert. Oriented x 3. 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 at midnight for possible KIMBER and cardioversion tomorrow with Dr. Cabrales if patient remains in atrial flutter Further recommendations pending patient course Nurse practitioner note has been reviewed by physician. Signing provider agrees with the documented findings, assessment, and plan of care documented by VOLUNTEER MANAGER as a scribe. Objective - Vital Signs Vital signs: Vital Signs Temp 98.4 F 05/05/24 07:40 Pulse 115 H 05/05/24 07:40 Resp 16 05/05/24 07:40 BP 131/76 05/05/24 07:40 Pulse Ox 93 L 05/05/24 07:40 FiO2 Intake & Output 05/04/24 05/05/24 05/05/24 18:59 06:59 18:59 Intake Total 128 10 Balance 128 10 Weight 111.5 kg Intake: IV 10 10 Invasive Line 2 10 10 Oral 118 Other: Voiding Method Toilet - Labs CBC & Chem 7: 05/04/24 06:04 05/04/24 06:04 Labs: Abnormal Lab Results - Last 24 Hours (Table) 05/04/24 05/04/24 05/04/24 Range/Units 11:29 16:11 19:56 POC Glucose (mg/dL) 329 H 348 H 318 H (70-110) mg/dL 05/05/24 Range/Units 05:53 POC Glucose (mg/dL) 204 H (70-110) mg/dL
[2024-05-05 11:28] LABS: Glucose,Whole Blood 203 mg/dL (70-110)
--- NOTE | 2024-05-05 12:22 | P.PN ---
Subjective Progress Note Date: 05/05/24 Principal diagnosis: Acute COVID-19 infection This is a 68-year-old female patient, seen in the emergency department because of worsening shortness of breath. The patient is obese with a body mass index of 42. The patient is known to have coronary disease with previous coronary stenting, chronic A-fib, CHF, hypertension hyperlipidemia obstructive sleep apnea along with history of diabetes mellitus. He is also known to have previous history of pacemaker insertion implanted on 11/25/2023 for sick sinus syndrome and symptomatic bradycardia. Her baseline left-sided ejection fraction is in order of 45%. The patient came into the hospital because of worsening shortness of breath, cough and congestion and wheezing. She was found to be hypoxic and currently she is on 2 L of oxygen by nasal cannula. Noted the patient is a lifetime non-smoker. In the hospital, the patient was found to have a COVID-19 infection. Her symptoms started approximately 2 days ago. The patient received vaccination in the past including a total of 3 shots for COVID- 19 as part of her vaccination since the beginning of pandemic. No previous history of COVID-19 infection that has been documented in this patient. Chest x-ray done in the emergency was consistent with CHF with cardiomegaly and pulm vascular congestion. Her most recent cardiac stress test was done on 02/09 and 02/11/2024 that showed large area of remote insult over the anterior wall without any reversible ischemia. Estimated ejection fraction was 51%. Currently, the patient is on IV Solu-Medrol 40 mg every 12 hours. Home medication resumed. She remains on long-term anticoagulation with Xarelto. She is also on a combination of Lasix and Aldactone. She is on Levemir insulin 10 units daily + scale coverage. She remains on Plavix. On 05/01/2024, the patient is being seen for a follow-up. The patient is being treated for acute COVID-19 infection that was further complicated by a component of CHF exacerbation and hypoxic respiratory failure. The patient is doing better compared to yesterday. She is currently on 2 L with a pulse ox of 98%. No fever. No chills. No hemodynamic instability. She remains on IV Solu- Medrol 40 mg every 12 hours. She remains on Aldactone 50 mg p.o. daily and Lasix 40 mg p.o. daily. She remains on anticoagulation with Xarelto 20 mg p.o. daily. Note that her hemoglobin A1c was at 8.2. The patient's procalcitonin level was 0.18. proBNP level was 1480. LDH was 255 and CRP was 3.2. The white cell count is at 7.5 with a hemoglobin of 11.2. No new complaints otherwise for now. On 05/02/2024, the patient is being seen for a follow-up. The patient is doing well. She is currently on room air oxygen with a pulse ox of 93%. Blood sugars are slightly elevated and the patient receiving systemic steroids. The patient remains on IV Solu-Medrol 40 mg every 12 hours. She is also on IV Rocephin as the patient was found to have a gram-negative urinary tract infection and final cultures still pending. Creatinine is at 1.3, BUN 63, the white cell count of 7.5. On 05/03/2024, the patient developed atrial fibrillation with rapid ventricular response. The patient is to be started on amiodarone. Meanwhile, the patient is maintained on metoprolol 25 mg twice a day. The patient remains on Xarelto. In regards to her COPD exacerbation COVID-19 infection, she remains stable. She is currently on room air oxygen with a pulse ox of 94%. No chest pain. No altered mentation. No nausea or vomiting. Scrap Sorter on the case regarding the atrial fibrillation. She is still encountering some shortness of breath and generalized bodyaches and weakness. She has a Klebsiella pneumoniae tract infection remains on IV Rocephin. Patient was seen today on 05/04/2024, patient is sitting in bed, does not seem to be in any distress, she has no cough no wheezing no shortness of breath, patient is receiving treatment for a urinary tract infection, she had some vague abdominal discomfort earlier today, during my evaluation the patient was asymptomatic. Patient is wondering if she could be discharged home, however the patient is to be seen by cardiology for atrial fibrillation, and the recommendation was to increase her metoprolol, obviously no plans to discharge the patient today. Pulmonary garrido the patient is doing well, and relatively asymptomatic. Seen today on 05/05/2024, patient continues to do well, pulmonary garrido minimal cough, no wheezing, no shortness of breath no chest pain, patient is on room air, seems to be recovering nicely from her acute COVID-19 infection. Patient has intermittent episodes of nausea, and dry heaves this morning. On the monitor patient is in atrial flutter with heart rate of 120 and is being addressed by cardiology. And her metoprolol was increased to 75 twice daily. Amiodarone was added. Cardiology is considering KIMBER and possible cardioversion tomorrow WBC count is 5.4 hemoglobin 12.3 electrolytes are normal BUN is 67 creatinine 1.18 and her Lasix dose was cut down by cardiology Objective - Vital Signs Vital signs: Vital Signs Temp 98.4 F 05/05/24 07:40 Pulse 115 H 05/05/24 07:40 Resp 16 05/05/24 08:00 BP 131/76 05/05/24 07:40 Pulse Ox 93 L 05/05/24 07:40 FiO2 Intake & Output 05/04/24 05/05/24 05/05/24 18:59 06:59 18:59 Intake Total 128 10 10 Balance 128 10 10 Weight 111.5 kg Intake: IV 10 10 10 Invasive Line 2 10 10 10 Oral 118 Other: Voiding Method Toilet - Exam GENERAL: Revealed 68-year-old female in no distress, on room air Head: Atraumatic, normocephalic HEENT: PERRLA, EOMI, nonicteric no neck masses no JVD no stridor LUNGS: Symmetrical chest expansion clear throughout no crackles rhonchi or wheezes HEART: Tachycardic normal S1-S2, no S3 gallop. No murmur ABDOMEN: Obese soft nontender No rebound no guarding EXTREMITIES: No clubbing edema or cyanosis NEUROLOGIC: Alert oriented x 3 no gross focal deficit Psychiatric: Normal mood affect and no mental status examination Skin: No rash - Labs CBC & Chem 7: 05/04/24 06:04 05/04/24 06:04 Labs: Abnormal Lab Results - Last 24 Hours (Table) 05/04/24 05/04/24 05/05/24 Range/Units 16:11 19:56 05:53 POC Glucose (mg/dL) 348 H 318 H 204 H (70-110) mg/dL 05/05/24 Range/Units 11:26 POC Glucose (mg/dL) 203 H (70-110) mg/dL Assessment and Plan Assessment: Impression Acute COVID-19 infection Acute hypoxic respiratory failure, likely due to COVID-19 infection with a component of CHF exacerbation. Improving Acute dyspnea, secondary to suspected to be related to COVID 19 with a component of diastolic CHF exacerbation, A-fib with RVR, being addressed by cardiology may consider KIMBER and cardioversion tomorrow Klebsiella urinary tract infection Obesity Sinus bradycardia, post pacemaker insertion Coronary artery disease, with previous history of PCI/stenting to the LAD History of hypertension History of hyperlipidemia History of diabetes mellitus Morbid obesity with a BMI of 43.3 kg/m History of moderate obstructive sleep apnea, with an AHI of 26, maintained on CPAP at home with a pressure support of 8, will not be able to tolerate full facemask currently with nasal fractures Lifetime non-smoker Recommendation: Continue present supportive care measures Patient is now off oxygen Cardiology is considering KIMBER and cardioversion tomorrow Decrease diuretics Continue home meds Patient to use CPAP at night with pressure of 8 cm of water Continue Xarelto and Plavix Will continue to follow Time with Patient: Less than 30
[2024-05-05] MEDS: FAMOTIDINE 20 MG/2 ML VIAL IV SCH (12:27)
[2024-05-05 16:36] LABS: Glucose,Whole Blood 226 mg/dL (70-110)
[2024-05-05] MEDS: AMIODARONE 450 MG in DEXTROSE 5% IN WATER 250 ML IV SCH (17:27)
[2024-05-05 20:22] LABS: Glucose,Whole Blood 277 mg/dL (70-110)
[2024-05-05] MEDS: LACTATED RINGERS 1,000 ML IV SCH (20:33)
[2024-05-06 06:12] LABS: Glucose,Whole Blood 189 mg/dL (70-110)
[2024-05-06] MEDS: AMIODARONE 200 MG TAB PO SCH ×2 (08:09→20:11)
[2024-05-06 10:56] LABS: African American GFR (CKD) 39 (>60 ml/min/1.73 sqM); Anion Gap 9 mmol/L; Blood Urea Nitrogen 87 mg/dL (7-17); Calcium 9.8 mg/dL (8.4-10.2); Carbon Dioxide 21 mmol/L (22-30); Chloride 104 mmol/L (98-107); Glucose 213 mg/dL (74-99); Non-African American GFR(CKD) 34 (>60 ml/min/1.73 sqM); Potassium 4.4 mmol/L (3.5-5.1); Sodium 134 mmol/L (137-145)
[2024-05-06 11:31] LABS: Glucose,Whole Blood 208 mg/dL (70-110)
--- NOTE | 2024-05-06 11:45 | P.PN ---
Subjective Progress Note Date: 05/05/24 H&P Date: 04/30/24 Luz Swann is a 68 yo F with PMH significant for recent PPM, cardiac ablation, cardioversion, coronary artery disease with previous stenting, persistent atrial fibrillation, cardiomyopathy hypertension, hyperlipidemia, obesity, obstructive sleep apnea, diabetes, and cardiomyopathy presented to the ER with complaints of dyspnea, increased weakness over the last 24 to 48 hours accompanied by ongoing nonproductive cough greater than 2 weeks. Denies chills, fevers, sore throat, body aches, sick contacts, headache or lightheadedness. On admission O2 sats initially 92% on room air, dropped down to 85% on room air, febrile with Tmax of 101, WBC 4.2 . Hemoglobin 10.6, platelets 103. Electrolytes within normal limits. Bicarb 24, BUN 55, creatinine decreased to 1.13 (baseline 0.9-1). chest x-ray reports cardiomegaly, mild pulmonary vascular congestion.pro.BNP ordered. Aldactone increased. currently maintaining O2 sats in the 90s on 2 L nasal cannula. UA positive for nitrates, large leukocytes, many bacteria. 05/01/2024 maintained on diuretics, bronchodilators, IV steroids, respiratory status slowly improving. Reports less shortness of breath. maintained O2 sats in the 90s on on 2 L nasal cannula O2 .blood sugars uncontrolled .hemoglobin A1c 8.2 .her significant other has just been diagnosed with COVID as well. Empiric antibiotics for potential UTI, culture in progress. BMP pending. afebrile, normal WBC. Procalcitonin normal, 0.18. LDH and CRP elevated at 255, 3.20. 05/04/2024 Yesterday developed atrial fibrillation with RVR, transferred to telemetry.sitting up in chair, complaining of nausea with some emesis. Tachycardic, EKG ordered. Denies chest pain, palpitations or shortness of breath. Maintaining O2 sats In the high 90s on room air. Afebrile, normal WBC, hemoglobin 12.3, platelets 156, sodium 140, potassium 5.2, bicarb 29, BUN 67, creatinine 1.18. Maintained on ceftriaxone for acute UTI. Culture reporting Klebsiella pneumonia. EKG reporting atrial flutter/tachycardia with RVR, beta- lawson increased per cardiology. 05/05/2024 sitting up in chair, complaining of nausea. Maintained on antibiotics for UTI. Cough improving. Denies chest pain, palpitations or sh ortness of breath. EKG completed yesterday reporting atrial flutter. Telemetry atrial flutter with heart rates in the 1 teens. BUN 67, creatinine 1.18. Maintaining O2 sats in the 90s on room air. Objective - Vital Signs Vital signs: Vital Signs Temp 98.4 F 05/05/24 07:40 Pulse 115 H 05/05/24 07:40 Resp 16 05/05/24 08:00 BP 131/76 05/05/24 07:40 Pulse Ox 93 L 05/05/24 07:40 FiO2 Intake & Output 05/04/24 05/05/24 05/05/24 18:59 06:59 18:59 Intake Total 128 10 10 Balance 128 10 10 Weight 111.5 kg Intake: IV 10 10 10 Invasive Line 2 10 10 10 Oral 118 Other: Voiding Method Toilet - Exam Gen: Obese, alert and oriented x 3, sitting up in chair, NAD HEENT: NC, AT,conjunctiva pink, sclera anicteric. Neck: supple, no JVD CV: S1 and S2, tachycardic,no murmur Lungs: Unlabored, equal air entry , essentially clear throughout Abd: soft, non distended, nontender, positive bowel sounds Neuro: Cranial nerves II through XII grossly intact. No focal deficit. Skin: warm and dry - Labs CBC & Chem 7: 05/04/24 06:04 05/06/24 10:26 Labs: Abnormal Lab Results - Last 24 Hours (Table) 05/04/24 05/04/24 05/05/24 Range/Units 16:11 19:56 05:53 POC Glucose (mg/dL) 348 H 318 H 204 H (70-110) mg/dL 05/05/24 Range/Units 11:26 POC Glucose (mg/dL) 203 H (70-110) mg/dL Assessment and Plan Assessment: Acute COVID-19 infection Acute hypoxic respiratory failure secondary to the above Mild acute on chronic CHF exacerbation, systolic dysfunction, EF 45-50%, chest x-ray suggest mild pulmonary vascular congestion, BNP 1480 Acute UTI, culture reporting Klebsiella pneumoniae Acute on chronic paroxysmal A-fib with RVR New onset atrial flutter with RVR Acute renal failure on admission, returned to baseline Chronic intermittent asthma Chronic anemia Permanent pacemaker implantation 11/25/2023 secondary to sick sinus syndrome with symptomatic bradycardia Recent cardiac ablation 10/31/2023 CAD, history of stenting to the LAD Hypertension Hyperlipidemia History of ischemic cardiomyopathy, EF 45% Diabetes mellitus II, hyperglycemic, A1c 8.2, further diabetic education outpati ent in clinic, at follow-up with PCP Morbid obesity, BMI 42 Obstructive sleep apnea, uses CPAP Gait dysfunction, uses walker Plan: Continue on current medication regimen ,monitoring and symptomatic treatment. Losartan/HCTZ DC'd, Lasix decreased, IV fluid hydration initiated. Close monitoring of renal function with repeat labs ordered for a.m. continue antiemetics , Pepcid IV added to med regimen .antiarrhythmics as per cardiology, amiodarone drip ordered. Potential KIMBER/cardioversion tomorrow if atrial flutter persists. The impression and plan of care has been dictated as directed. : I performed a history and examination of this patient, discussed the same with the dictator. I agree with the dictator's note ,documented as a scribe. Any additional findings or plans will be noted.
--- NOTE | 2024-05-06 11:58 | P.PN ---
Subjective HISTORY OF PRESENT ILLNESS: This is a 68-year-old female with a past medical history significant for cardiomyopathy, atrial fibrillation, cardioversion March 2023, ablation, and coronary artery disease with previous stenting. Patient follows in the office with Dr. Cabrales. We have been asked to see the patient in consultation for A-fib with RVR. Patient examined at the bedside. Patient is admitted to the hospital secondary to COVID infection. Patient went into A-fib with RVR yesterday and was transferred to [facility]. Patient's telemetry this morning appears to be sinus tachycardia with heart rate around 115. Patient reports feeling nauseated this morning and having some episodes of vomiting. She denies any chest pain or pressure. Denies any shortness of breath. She denies dizziness or palpitations. DIAGNOSTICS: - EKG on admission revealed sinus mechanism. Bedside telemetry appears to be sinus tachycardia. - Chest xray cardiomegaly and mild pulmonary vascular congestion - Laboratory data: WBC 5.4. Hemoglobin 12.3. Platelet count 156. Sodium 140. Potassium 5.2. BUN 67. Creatinine 1.18. - Current home cardiac medications include Plavix 75 mg daily, Lipitor 40 mg at night, metoprolol succinate 25 mg daily, Lasix 40 mg daily, Aldactone 25 mg daily, Xarelto 20 mg with dinner, Jardiance 10 mg daily - Most recent echocardiogram obtained in September 2023 revealed ejection fraction 45 to 50% with no pericardial effusion - Cardiac catheterization history: February 2023 with stenting of the mid LAD - Patient underwent Lexiscan stress test in January 2024 which was negative for ischemia 05/05/2024 Patient examined this morning at the bedside. Patient states that she is still feeling unwell this morning. Patient has a basin in her lap. She reports nausea and dry heaves this morning. BUN this morning 67. EKG yesterday revealed atrial flutter. Patient remains in atrial flutter this morning with a heart rate around 120. 05/06/2024 Patient examined this morning at the bedside. Patient states that she is feeling better today. Her nausea has resolved. She denies chest pain or pressure. She denies shortness of breath. Blood pressure is stable. She remains in atrial flutter with controlled ventricular rates in the 70s and 80s. She has been started on oral amiodarone. Patient has been receiving IV fluids at 75 cc an hour since yesterday morning. However patient's creatinine today is worsened at 1.56. BUN 87. PHYSICAL EXAM: VITAL SIGNS: Reviewed. GENERAL: Well-developed in no acute distress. HEENT: Head is normocephalic. Pupils are equal, round. Sclerae anicteric. Mucous membranes of the mouth are moist. Neck supple. No JVD or thyromegaly LUNGS: Respirations even and unlabored. Lungs with a few crackles at the bases. HEART: Regular rate and rhythm. S1 and S2 heard. ABDOMEN: Soft. Nondistended. Nontender. EXTREMITIES: Normal range of motion. No clubbing or cyanosis. Peripheral pulses intact. No lower extremity edema NEUROLOGIC: Awake and alert. Oriented x 3. ASSESSMENT: Acute COVID-19 Nausea and vomiting Paroxysmal atrial fibrillation with RVR New onset typical atrial flutter with RVR, 2-1 conduction Mild ischemic cardiomyopathy, 45 to 50% Coronary artery disease with previous stenting to the mid LAD, 02/2023 Known severe disease of diagonal 1 (small vessel) History of cardioversion, March 2023 History of A-fib ablation, October 2023 Hypertension Hyperlipidemia Diabetes Obesity: BMI 40.1 Acute kidney injury PLAN: IV amiodarone infusion completed. Oral amiodarone initiated. Decrease dosage to 200 mg twice a day Continue current dose of metoprolol 75 mg twice a day Patient has been receiving IV fluids at 75 cc an hour since yesterday morning. However patient's creatinine is worsened today at 1.56. BUN 87. Patient's hydrochlorothiazide was discontinued yesterday Patient's Lasix was decreased yesterday from 40 mg to 20 mg daily. We will discontinue Lasix at this time Additionally, discontinue Aldactone Nephrology has been consulted. Repeat BMP in a.m. KIMBER and cardioversion canceled for today as patient's heart rates are controlled Will plan for outpatient KIMBER and cardioversion after patient's acute medical conditions resolve Further recommendations pending patient course Nurse practitioner note has been reviewed by physician. Signing provider agrees with the documented findings, assessment, and plan of care documented by PROJECT CONTROL MANAGER as a scribe. Objective - Vital Signs Vital signs: Vital Signs Temp 98.1 F 05/06/24 08:05 Pulse 85 05/06/24 08:05 Resp 16 05/06/24 08:05 BP 118/68 05/06/24 08:05 Pulse Ox 95 05/06/24 08:05 FiO2 Intake & Output 05/05/24 05/06/24 05/06/24 18:59 06:59 18:59 Intake Total 10 250 10 Balance 10 250 10 Weight 112.43 kg Intake: IV 10 10 10 Invasive Line 2 10 Invasive Line 3 10 10 Oral 240 Other: Voiding Method Toilet Toilet # Voids 2 - Labs CBC & Chem 7: 05/04/24 06:04 05/06/24 10:26 Labs: Abnormal Lab Results - Last 24 Hours (Table) 05/05/24 05/05/24 05/06/24 Range/Units 16:34 20:10 06:09 Sodium (137-145) mmol/L Carbon Dioxide (22-30) mmol/L BUN (7-17) mg/dL Creatinine (0.52-1.04) mg/dL Glucose (74-99) mg/dL POC Glucose (mg/dL) 226 H 277 H 189 H (70-110) mg/dL 05/06/24 05/06/24 Range/Units 10:26 11:29 Sodium 134 L (137-145) mmol/L Carbon Dioxide 21 L (22-30) mmol/L BUN 87 H (7-17) mg/dL Creatinine 1.56 H (0.52-1.04) mg/dL Glucose 213 H (74-99) mg/dL POC Glucose (mg/dL) 208 H (70-110) mg/dL
--- NOTE | 2024-05-06 12:49 | P.PN ---
Subjective Progress Note Date: 05/06/24 Principal diagnosis: Acute COVID-19 infection This is a 68-year-old female patient, seen in the emergency department because of worsening shortness of breath. The patient is obese with a body mass index of 42. The patient is known to have coronary disease with previous coronary stenting, chronic A-fib, CHF, hypertension hyperlipidemia obstructive sleep apnea along with history of diabetes mellitus. He is also known to have previous history of pacemaker insertion implanted on 11/25/2023 for sick sinus syndrome and symptomatic bradycardia. Her baseline left-sided ejection fraction is in order of 45%. The patient came into the hospital because of worsening shortness of breath, cough and congestion and wheezing. She was found to be hypoxic and currently she is on 2 L of oxygen by nasal cannula. Noted the patient is a lifetime non-smoker. In the hospital, the patient was found to have a COVID-19 infection. Her symptoms started approximately 2 days ago. The patient received vaccination in the past including a total of 3 shots for COVID- 19 as part of her vaccination since the beginning of pandemic. No previous history of COVID-19 infection that has been documented in this patient. Chest x-ray done in the emergency was consistent with CHF with cardiomegaly and pulm vascular congestion. Her most recent cardiac stress test was done on 02/09 and 02/11/2024 that showed large area of remote insult over the anterior wall without any reversible ischemia. Estimated ejection fraction was 51%. Currently, the patient is on IV Solu-Medrol 40 mg every 12 hours. Home medication resumed. She remains on long-term anticoagulation with Xarelto. She is also on a combination of Lasix and Aldactone. She is on Levemir insulin 10 units daily + scale coverage. She remains on Plavix. On 05/01/2024, the patient is being seen for a follow-up. The patient is being treated for acute COVID-19 infection that was further complicated by a component of CHF exacerbation and hypoxic respiratory failure. The patient is doing better compared to yesterday. She is currently on 2 L with a pulse ox of 98%. No fever. No chills. No hemodynamic instability. She remains on IV Solu- Medrol 40 mg every 12 hours. She remains on Aldactone 50 mg p.o. daily and Lasix 40 mg p.o. daily. She remains on anticoagulation with Xarelto 20 mg p.o. daily. Note that her hemoglobin A1c was at 8.2. The patient's procalcitonin level was 0.18. proBNP level was 1480. LDH was 255 and CRP was 3.2. The white cell count is at 7.5 with a hemoglobin of 11.2. No new complaints otherwise for now. On 05/02/2024, the patient is being seen for a follow-up. The patient is doing well. She is currently on room air oxygen with a pulse ox of 93%. Blood sugars are slightly elevated and the patient receiving systemic steroids. The patient remains on IV Solu-Medrol 40 mg every 12 hours. She is also on IV Rocephin as the patient was found to have a gram-negative urinary tract infection and final cultures still pending. Creatinine is at 1.3, BUN 63, the white cell count of 7.5. On 05/03/2024, the patient developed atrial fibrillation with rapid ventricular response. The patient is to be started on amiodarone. Meanwhile, the patient is maintained on metoprolol 25 mg twice a day. The patient remains on Xarelto. In regards to her COPD exacerbation COVID-19 infection, she remains stable. She is currently on room air oxygen with a pulse ox of 94%. No chest pain. No altered mentation. No nausea or vomiting. Senior C Software Engineer on the case regarding the atrial fibrillation. She is still encountering some shortness of breath and generalized bodyaches and weakness. She has a Klebsiella pneumoniae tract infection remains on IV Rocephin. Patient was seen today on 05/04/2024, patient is sitting in bed, does not seem to be in any distress, she has no cough no wheezing no shortness of breath, patient is receiving treatment for a urinary tract infection, she had some vague abdominal discomfort earlier today, during my evaluation the patient was asymptomatic. Patient is wondering if she could be discharged home, however the patient is to be seen by cardiology for atrial fibrillation, and the recommendation was to increase her metoprolol, obviously no plans to discharge the patient today. Pulmonary garrido the patient is doing well, and relatively asymptomatic. Seen today on 05/05/2024, patient continues to do well, pulmonary garrido minimal cough, no wheezing, no shortness of breath no chest pain, patient is on room air, seems to be recovering nicely from her acute COVID-19 infection. Patient has intermittent episodes of nausea, and dry heaves this morning. On the monitor patient is in atrial flutter with heart rate of 120 and is being addressed by cardiology. And her metoprolol was increased to 75 twice daily. Amiodarone was added. Cardiology is considering KIMBER and possible cardioversion tomorrow WBC count is 5.4 hemoglobin 12.3 electrolytes are normal BUN is 67 creatinine 1.18 and her Lasix dose was cut down by cardiology Patient was seen today on 05/06/2024, patient is feeling great today, asymptomatic, she has no active pulmonary or cardiac symptoms. Her atrial fibrillation seems to be better controlled, patient is on oral amiodarone, has b een receiving fluids at 75 cc/h, renal functioning is slightly worse today compared to the last few days 1.18 went up to 1.56/creatinine patient is not receiving any diuretics. Objective - Vital Signs Vital signs: Vital Signs Temp 98.5 F 05/06/24 12:00 Pulse 74 05/06/24 12:00 Resp 16 05/06/24 12:00 BP 106/66 05/06/24 12:00 Pulse Ox 93 L 05/06/24 12:00 FiO2 Intake & Output 05/05/24 05/06/24 05/06/24 18:59 06:59 18:59 Intake Total 10 250 10 Balance 10 250 10 Weight 112.43 kg Intake: IV 10 10 10 Invasive Line 2 10 Invasive Line 3 10 10 Oral 240 Other: Voiding Method Toilet Toilet # Voids 2 - Exam GENERAL: Revealed 68-year-old female in no distress, on room air Head: Atraumatic, normocephalic HEENT: PERRLA, EOMI, nonicteric no neck masses no JVD no stridor LUNGS: Symmetrical chest expansion clear throughout no crackles rhonchi or wheezes HEART: Tachycardic normal S1-S2, no S3 gallop. No murmur ABDOMEN: Obese soft nontender No rebound no guarding EXTREMITIES: No clubbing edema or cyanosis NEUROLOGIC: Alert oriented x 3 no gross focal deficit Psychiatric: Normal mood affect and no mental status examination Skin: No rash - Labs CBC & Chem 7: 05/04/24 06:04 05/06/24 10:26 Labs: Abnormal Lab Results - Last 24 Hours (Table) 05/05/24 05/05/24 05/06/24 Range/Units 16:34 20:10 06:09 Sodium (137-145) mmol/L Carbon Dioxide (22-30) mmol/L BUN (7-17) mg/dL Creatinine (0.52-1.04) mg/dL Glucose (74-99) mg/dL POC Glucose (mg/dL) 226 H 277 H 189 H (70-110) mg/dL 05/06/24 05/06/24 Range/Units 10:26 11:29 Sodium 134 L (137-145) mmol/L Carbon Dioxide 21 L (22-30) mmol/L BUN 87 H (7-17) mg/dL Creatinine 1.56 H (0.52-1.04) mg/dL Glucose 213 H (74-99) mg/dL POC Glucose (mg/dL) 208 H (70-110) mg/dL Assessment and Plan Assessment: Impression Acute COVID-19 infection Acute hypoxic respiratory failure, likely due to COVID-19 infection with a component of CHF exacerbation. Improving Acute dyspnea, secondary to suspected to be related to COVID 19 with a component of diastolic CHF exacerbation, A-fib with RVR, being addressed by cardiology may consider KIMBER and cardioversion tomorrow Klebsiella urinary tract infection Obesity Sinus bradycardia, post pacemaker insertion Coronary artery disease, with previous history of PCI/stenting to the LAD History of hypertension History of hyperlipidemia History of diabetes mellitus Morbid obesity with a BMI of 43.3 kg/m History of moderate obstructive sleep apnea, with an AHI of 26, maintained on CPAP at home with a pressure support of 8, will not be able to tolerate full facemask currently with nasal fractures Lifetime non-smoker Recommendation: Continue amiodarone as per cardiology on the case, now on oral amiodarone 200 twice daily Continue metoprolol 75 mg twice daily Continue IV fluid at 75 cc/h and monitor renal profile Patient had her Aldactone and hydrochlorothiazide discontinued Continue present supportive care measures Patient is now off oxygen Cardiology is considering KIMBER and cardioversion, however this was canceled for today since her heart rate seems to be better controlled Continue home meds Patient to use CPAP at night with pressure of 8 cm of water Continue Xarelto and Plavix Will continue to follow Time with Patient: Less than 30
[2024-05-06 13:55] VITALS: BMI 40.0
--- NOTE | 2024-05-06 14:25 | P.PN ---
Subjective Progress Note Date: 05/06/24 H&P Date: 04/30/24 Luz Swann is a 68 yo F with PMH significant for recent PPM, cardiac ablation, cardioversion, coronary artery disease with previous stenting, persistent atrial fibrillation, cardiomyopathy hypertension, hyperlipidemia, obesity, obstructive sleep apnea, diabetes, and cardiomyopathy presented to the ER with complaints of dyspnea, increased weakness over the last 24 to 48 hours accompanied by ongoing nonproductive cough greater than 2 weeks. Denies chills, fevers, sore throat, body aches, sick contacts, headache or lightheadedness. On admission O2 sats initially 92% on room air, dropped down to 85% on room air, febrile with Tmax of 101, WBC 4.2 . Hemoglobin 10.6, platelets 103. Electrolytes within normal limits. Bicarb 24, BUN 55, creatinine decreased to 1.13 (baseline 0.9-1). chest x-ray reports cardiomegaly, mild pulmonary vascular congestion.pro.BNP ordered. Aldactone increased. currently maintaining O2 sats in the 90s on 2 L nasal cannula. UA positive for nitrates, large leukocytes, many bacteria. 05/01/2024 maintained on diuretics, bronchodilators, IV steroids, respiratory status slowly improving. Reports less shortness of breath. maintained O2 sats in the 90s on on 2 L nasal cannula O2 .blood sugars uncontrolled .hemoglobin A1c 8.2 .her significant other has just been diagnosed with COVID as well. Empiric antibiotics for potential UTI, culture in progress. BMP pending. afebrile, normal WBC. Procalcitonin normal, 0.18. LDH and CRP elevated at 255, 3.20. 05/04/2024 Yesterday developed atrial fibrillation with RVR, transferred to telemetry.sitting up in chair, complaining of nausea with some emesis. Tachycardic, EKG ordered. Denies chest pain, palpitations or shortness of breath. Maintaining O2 sats In the high 90s on room air. Afebrile, normal WBC, hemoglobin 12.3, platelets 156, sodium 140, potassium 5.2, bicarb 29, BUN 67, creatinine 1.18. Maintained on ceftriaxone for acute UTI. Culture reporting Klebsiella pneumonia. EKG reporting atrial flutter/tachycardia with RVR, beta- lawson increased per cardiology. 05/05/2024 sitting up in chair, complaining of nausea. Maintained on antibiotics for UTI. Cough improving. Denies chest pain, palpitations or sh ortness of breath. EKG completed yesterday reporting atrial flutter. Telemetry atrial flutter with heart rates in the 1 teens. BUN 67, creatinine 1.18. Maintaining O2 sats in the 90s on room air. 05/06/2024 telemetry reporting atrial flutter, rate controlled. Transitioned to oral amiodarone. KIMBER/cardioversion canceled. nausea subsided. Yesterday, losartan/HCTZ discontinued, received IV fluids yesterday, renal function worsening. Denies chest pain, palpitations or shortness of breath, maintaining O2 sats in the 90s on room air. Objective - Vital Signs Vital signs: Vital Signs Temp 98.5 F 05/06/24 12:00 Pulse 74 05/06/24 12:00 Resp 16 05/06/24 12:00 BP 106/66 05/06/24 12:00 Pulse Ox 93 L 05/06/24 12:00 FiO2 Intake & Output 05/05/24 05/06/24 05/06/24 18:59 06:59 18:59 Intake Total 10 250 190 Balance 10 250 190 Weight 112.43 kg 112.43 kg Intake: IV 10 10 10 Invasive Line 2 10 Invasive Line 3 10 10 Oral 240 180 Other: Voiding Method Toilet Toilet # Voids 2 - Exam Gen: Obese, alert and oriented x 3, sitting up in chair, NAD HEENT: NC, AT,conjunctiva pink, sclera anicteric. Neck: supple, no JVD. CV: S1 and S2, tachycardic,no murmur Lungs: Unlabored, equal air entry , essentially clear throughout Abd: soft, non distended, nontender, positive bowel sounds Neuro: Cranial nerves II through XII grossly intact. No focal deficit. Skin: warm and dry - Labs CBC & Chem 7: 05/04/24 06:04 05/06/24 10:26 Labs: Abnormal Lab Results - Last 24 Hours (Table) 05/05/24 05/05/24 05/06/24 Range/Units 16:34 20:10 06:09 Sodium (137-145) mmol/L Carbon Dioxide (22-30) mmol/L BUN (7-17) mg/dL Creatinine (0.52-1.04) mg/dL Glucose (74-99) mg/dL POC Glucose (mg/dL) 226 H 277 H 189 H (70-110) mg/dL 05/06/24 05/06/24 Range/Units 10:26 11:29 Sodium 134 L (137-145) mmol/L Carbon Dioxide 21 L (22-30) mmol/L BUN 87 H (7-17) mg/dL Creatinine 1.56 H (0.52-1.04) mg/dL Glucose 213 H (74-99) mg/dL POC Glucose (mg/dL) 208 H (70-110) mg/dL Assessment and Plan Assessment: Acute COVID-19 infection Acute hypoxic respiratory failure secondary to the above Mild acute on chronic CHF exacerbation, systolic dysfunction, EF 45-50%, chest x-ray suggest mild pulmonary vascular congestion, BNP 1480 Acute UTI, culture reporting Klebsiella pneumoniae Acute on chronic paroxysmal A-fib with RVR New onset atrial flutter with RVR Acute renal failure Chronic intermittent asthma Chronic anemia Permanent pacemaker implantation 11/25/2023 secondary to sick sinus syndrome with symptomatic bradycardia Recent cardiac ablation 10/31/2023 CAD, history of stenting to the LAD Hypertension Hyperlipidemia History of ischemic cardiomyopathy, EF 45% Diabetes mellitus II, hyperglycemic, A1c 8.2, further diabetic education outpatient in clinic, at follow-up with PCP Morbid obesity, BMI 42 Obstructive sleep apnea, uses CPAP Gait dysfunction, uses walker Plan: Continue on current medication regimen ,monitoring and symptomatic treatment. Lasix , Aldactone discontinued, gentle IV fluid hydration, nephrology consulted. close monitoring of renal function with repeat labs ordered for a.m. antiarrhythmics as per cardiology-recommending outpatient KIMBER/cardioversion. The impression and plan of care has been dictated as directed. : I performed a history and examination of this patient, discussed the same with the dictator. I agree with the dictator's note ,documented as a scribe. Any ad ditional findings or plans will be noted.
[2024-05-06] MEDS: SODIUM CHLORIDE 0.9% 1,000 ML IV SCH (15:00)
[2024-05-06 16:43] LABS: Glucose,Whole Blood 278 mg/dL (70-110)
[2024-05-06 20:08] LABS: Glucose,Whole Blood 297 mg/dL (70-110)
[2024-05-06] MEDS: INSULIN DETEMIR (LEVEMIR) 100 UNIT/ML SYR SQ SCH (20:10)
[2024-05-07 06:31] LABS: Glucose,Whole Blood 126 mg/dL (70-110)
[2024-05-07 07:33] LABS: African American GFR (CKD) 46 (>60 ml/min/1.73 sqM); Anion Gap 7 mmol/L; Blood Urea Nitrogen 81 mg/dL (7-17); Calcium 9.7 mg/dL (8.4-10.2); Carbon Dioxide 25 mmol/L (22-30); Chloride 107 mmol/L (98-107); Glucose 118 mg/dL (74-99); Non-African American GFR(CKD) 40 (>60 ml/min/1.73 sqM); Potassium 4.3 mmol/L (3.5-5.1); Sodium 139 mmol/L (137-145)
[2024-05-07] MEDS ORDERED: SPIRONOLACTONE 25 MG TAB PO SCH (09:00)
[2024-05-07 11:30] LABS: Glucose,Whole Blood 241 mg/dL (70-110)
--- NOTE | 2024-05-07 12:04 | P.NPCON ---
History of Present Illness - Reason for Consult acute renal failure - History of Present Illness patient is a 68-year-old female with history of coronary artery disease, chronic A. fib, hypertension and cardiomyopathy along with diabetes. Patient is admitted to the hospital with complaints of increased weakness and cough. She tested positive for COVID-19 PCR. Patient also had evidence of CHF exacerbation and volume overload on initial admission. She has been diuresed. Patient was also maintained on IV Solu- Medrol which has now been switched to prednisone. Currently off of diuretics and maintained on saline at 50 mL an hour. BP noted to be low on 05/05/2024 with systolic blood pressure in the 90s. Serum creatinine was 1.2 on admission and improved to 1.18 on 05/04/2024 and increased to 1.56 on 05/06/2024. Serum creatinine has decreased to 1.3 today. Patient states she has been voiding. NSAIDs noted on med list. No IV contrast administered during the hospitalization. Past Medical History Past Medical History: Atrial Fibrillation, Asthma, Coronary Artery Disease (CAD), Diabetes Mellitus, GERD/Reflux, GI Bleed, Hyperlipidemia, Hypertension, Osteoarthritis (OA) Additional Past Medical History / Comment(s): See Dr Cabrales's H&P. see dr garcia's H & P, [facility] with oxygen use, perm pacemaker History of Any Multi-Drug Resistant Organisms: None Reported Past Surgical History: Appendectomy, Section, Cholecystectomy, Heart Catheterization With Stent, Hysterectomy, Joint Replacement, Orthopedic Surgery Additional Past Surgical History / Comment(s): Bilateral carpal tunnel, bilateral total knee replacements, colonoscopy, EGD. thumb surgery x 2 Past Anesthesia/Blood Transfusion Reactions: Previous Problems w/ Anesthesia Additional Past Anesthesia/Blood Transfusion Reaction / Comment(s): Had spinal fluid leak w/ prior spinal for knee surgery-stated was told not to have spinals. No problems with blood transfusion received 30-40 yrs ago. Date of Last Stent Placement:: 2022 Past Psychological History: No Psychological Hx Reported Smoking Status: Never smoker Past Alcohol Use History: None Reported Past Drug Use History: None Reported - Past Family History Mother Family Medical History: No Reported History Medications and Allergies Home Medications Medication Instructions Recorded Confirmed Type Omeprazole 20 mg PO HS 06/04/16 04/29/24 History Rivaroxaban [Xarelto] 20 mg PO W/SUPPER 06/04/16 04/29/24 History allopurinoL [Zyloprim] 300 mg PO DAILY 06/04/16 04/29/24 History Cholecalciferol [Vitamin D3 (25 25 mcg PO DAILY 09/03/22 04/29/24 History Mcg = 1000 Iu)] oxyBUTYnin chloride [Ditropan] 5 mg PO DAILY 09/03/22 04/29/24 History Pregabalin [Lyrica] 150 mg PO TID 11/17/22 04/29/24 History Nitroglycerin Sl Tabs [Nitrostat] 0.4 mg SUBLINGUAL Q5M PRN #50 tab 03/09/23 04/29/24 Rx Cetirizine HCl [Zyrtec] 10 mg PO DAILY 04/11/23 04/29/24 History Empagliflozin [Jardiance] 10 mg PO DAILY 04/11/23 04/29/24 History Ferrous Sulfate [Iron (65 MG 325 mg PO DAILY 04/11/23 04/29/24 History Elemental)] HYDROcodone/APAP 10-325MG [Luck 1 tab PO QID 10/22/23 04/29/24 History 10-325] Insulin Aspart [NovoLOG Flexpen] 10 - 12 units SQ PC-TID 10/22/23 04/29/24 History Levothyroxine Sodium [Synthroid] 50 mcg PO DAILY@0630 30 Days #30 10/26/23 04/29/24 Rx tab Tamsulosin [Flomax] 0.4 mg PO PC-BRKFST 30 Days #30 cap 10/26/23 04/29/24 Rx Amitriptyline HCl [Elavil] 10 mg PO HS 04/29/24 04/29/24 History Atorvastatin [Lipitor] 40 mg PO HS 04/29/24 04/29/24 History Azelastine HCl [Astelin Nasal 1 spray EA NOSTRIL BID 04/29/24 04/29/24 History [place]] Clopidogrel [Plavix] 75 mg PO DAILY 04/29/24 04/29/24 History Furosemide [Lasix] 40 mg PO DAILY 04/29/24 04/29/24 History Losartan/Hydrochlorothiazide 1 tab PO DAILY 04/29/24 04/29/24 History [Losartan-Hctz 100-25 mg Tab] Spironolactone [Aldactone] 25 mg PO DAILY 04/29/24 04/29/24 History Tirzepatide [Mounjaro] 10 mg SQ FR 04/29/24 04/29/24 History metFORMIN HCL [Glucophage] 500 mg PO BID 04/29/24 04/29/24 History Albuterol Inhaler [Ventolin Hfa 2 puff INHALATION QID PRN #1 each 05/04/24 Rx Inhaler] Ascorbic Acid [Vitamin C] 500 mg PO BID tab 05/04/24 Rx Metoprolol Tartrate [Lopressor] 50 mg PO BID #60 tab 05/04/24 Rx Zinc Sulfate [Orazinc] 220 mg PO DAILY #30 cap 05/04/24 Rx guaiFENesin SYRUP 100MG/5ML 200 mg PO Q6HR PRN ml 05/04/24 Rx [Robitussin] Allergies Allergy/AdvReac Type Severity Reaction Status Date / Time No Known Allergies Allergy Verified 04/29/24 20:50 Physical Exam Vitals: Vital Signs Temp Pulse Pulse Resp BP Pulse Ox 05/07/24 11:09 68 16 118/57 92 L 05/07/24 08:00 97.8 F 88 18 122/66 95 05/07/24 04:11 67 16 126/58 97 05/07/24 01:36 16 05/06/24 23:50 61 16 104/68 95 05/06/24 20:00 98.1 F 83 16 113/73 94 L 05/06/24 15:30 77 16 99/50 92 L 05/06/24 12:00 98.5 F 74 16 106/66 93 L Intake and Output 05/06/24 05/07/24 05/07/24 22:59 06:59 14:59 Other: Voiding Method Toilet Toilet Toilet # Voids 2 # Bowel Movements 1 patient is awake, comfortable, no acute distress. Examination of the heart S1 and S2 Examination of the lungs bilateral breath sounds are heard Abdomen is soft nontender Examination of lower extremity shows no evidence of edema [employer] exam grossly intact Results - Lab Results Most recent lab results Calcium 9.7 mg/dL (8.4-10.2) 05/07/24 06:40 Magnesium 1.8 mg/dL (1.6-2.3) 05/04/24 06:04 05/04/24 06:04 05/07/24 06:40 Assessment and Plan Assessment: 1. Acute kidney injury secondary to hypotension and recent diuresis, currently improved. Patient was also maintained on NSAIDs. UA showed no protein or blood . Currently maintained on IV fluids at 50 mL an hour. 2. Acute gout with 19 pneumonia 3. Acute hypoxic respiratory failure secondary to COVID-19 pneumonia and diastolic CHF, improved Plan: Recommend to discontinue NSAIDs May continue with saline for 1 more day Repeat labs in a.m. Thank you for the consultation. We will continue to follow the patient with you during her hospitalization.
--- NOTE | 2024-05-07 12:16 | P.PN ---
Subjective HISTORY OF PRESENT ILLNESS: This is a 68-year-old female with a past medical history significant for cardiomyopathy, atrial fibrillation, cardioversion March 2023, ablation, and coronary artery disease with previous stenting. Patient follows in the office with Dr. Cabrales. We have been asked to see the patient in consultation for A-fib with RVR. Patient examined at the bedside. Patient is admitted to the hospital secondary to COVID infection. Patient went into A-fib with RVR yesterday and was transferred to [facility]. Patient's telemetry this morning appears to be sinus tachycardia with heart rate around 115. Patient reports feeling nauseated this morning and having some episodes of vomiting. She denies any chest pain or pressure. Denies any shortness of breath. She denies dizziness or palpitations. DIAGNOSTICS: - EKG on admission revealed sinus mechanism. Bedside telemetry appears to be sinus tachycardia. - Chest xray cardiomegaly and mild pulmonary vascular congestion - Laboratory data: WBC 5.4. Hemoglobin 12.3. Platelet count 156. Sodium 140. Potassium 5.2. BUN 67. Creatinine 1.18. - Current home cardiac medications include Plavix 75 mg daily, Lipitor 40 mg at night, metoprolol succinate 25 mg daily, Lasix 40 mg daily, Aldactone 25 mg daily, Xarelto 20 mg with dinner, Jardiance 10 mg daily - Most recent echocardiogram obtained in September 2023 revealed ejection fraction 45 to 50% with no pericardial effusion - Cardiac catheterization history: February 2023 with stenting of the mid LAD - Patient underwent Lexiscan stress test in January 2024 which was negative for ischemia 05/05/2024 Patient examined this morning at the bedside. Patient states that she is still feeling unwell this morning. Patient has a basin in her lap. She reports nausea and dry heaves this morning. BUN this morning 67. EKG yesterday revealed atrial flutter. Patient remains in atrial flutter this morning with a heart rate around 120. 05/06/2024 Patient examined this morning at the bedside. Patient states that she is feeling better today. Her nausea has resolved. She denies chest pain or pressure. She denies shortness of breath. Blood pressure is stable. She remains in atrial flutter with controlled ventricular rates in the 70s and 80s. She has been started on oral amiodarone. Patient has been receiving IV fluids at 75 cc an hour since yesterday morning. However patient's creatinine today is worsened at 1.56. BUN 87. 05/07/2024 Patient examined this morning at bedside. Patient denies chest pain or pressure . She denies shortness of breath. Patient's nausea has resolved. Creatinine this morning 1.35. Patient remains in atrial flutter with controlled ventricular rates this morning. Vital signs are stable. PHYSICAL EXAM: VITAL SIGNS: Reviewed. GENERAL: Well-developed in no acute distress. HEENT: Head is normocephalic. Pupils are equal, round. Sclerae anicteric. Mucous membranes of the mouth are moist. Neck supple. No JVD or thyromegaly LUNGS: Respirations even and unlabored. Lungs with a few crackles at the bases. HEART: Regular rate and rhythm. S1 and S2 heard. ABDOMEN: Soft. Nondistended. Nontender. EXTREMITIES: Normal range of motion. No clubbing or cyanosis. Peripheral pulses intact. No lower extremity edema NEUROLOGIC: Awake and alert. Oriented x 3. ASSESSMENT: Acute COVID-19 Nausea and vomiting Paroxysmal atrial fibrillation with RVR New onset typical atrial flutter with RVR, 2-1 conduction Mild ischemic cardiomyopathy, 45 to 50% Coronary artery disease with previous stenting to the mid LAD, 02/2023 Known severe disease of diagonal 1 (small vessel) History of cardioversion, March 2023 History of A-fib ablation, October 2023 Hypertension Hyperlipidemia Diabetes Obesity: BMI 40.1 Acute kidney injury PLAN: Continue oral amiodarone 200 mg twice a day for 1 week. After 1 week, decrease to 200 mg daily Continue to hold diuretics. Reassess resuming diuretics on an outpatient basis Continue additional cardiac medications Will consider outpatient KIMBER cardioversion Further recommendations pending patient course Nurse practitioner note has been reviewed by physician. Signing provider agrees with the documented findings, assessment, and plan of care documented by SKIDDER DRIVER as a scribe. Objective - Vital Signs Vital signs: Vital Signs Temp 97.8 F 05/07/24 08:00 Pulse 68 05/07/24 11:09 Resp 16 05/07/24 11:09 BP 118/57 05/07/24 11:09 Pulse Ox 92 L 05/07/24 11:09 FiO2 Intake & Output 05/06/24 05/07/24 05/07/24 18:59 06:59 18:59 Intake Total 190 Balance 190 Weight 112.43 kg Intake: IV 10 Invasive Line 3 10 Oral 180 Other: Voiding Method Toilet Toilet Toilet # Voids 2 # Bowel Movements 1 - Labs CBC & Chem 7: 05/04/24 06:04 05/07/24 06:40 Labs: Abnormal Lab Results - Last 24 Hours (Table) 05/06/24 05/06/24 05/07/24 Range/Units 16:41 20:04 06:28 BUN (7-17) mg/dL Creatinine (0.52-1.04) mg/dL Glucose (74-99) mg/dL POC Glucose (mg/dL) 278 H 297 H 126 H (70-110) mg/dL 05/07/24 05/07/24 Range/Units 06:40 11:29 BUN 81 H (7-17) mg/dL Creatinine 1.35 H (0.52-1.04) mg/dL Glucose 118 H (74-99) mg/dL POC Glucose (mg/dL) 241 H (70-110) mg/dL
--- NOTE | 2024-05-07 13:31 | P.PN ---
Subjective Progress Note Date: 05/07/24 Principal diagnosis: Acute COVID-19 infection This is a 68-year-old female patient, seen in the emergency department because of worsening shortness of breath. The patient is obese with a body mass index of 42. The patient is known to have coronary disease with previous coronary stenting, chronic A-fib, CHF, hypertension hyperlipidemia obstructive sleep apnea along with history of diabetes mellitus. He is also known to have previous history of pacemaker insertion implanted on 11/25/2023 for sick sinus syndrome and symptomatic bradycardia. Her baseline left-sided ejection fraction is in order of 45%. The patient came into the hospital because of worsening shortness of breath, cough and congestion and wheezing. She was found to be hypoxic and currently she is on 2 L of oxygen by nasal cannula. Noted the patient is a lifetime non-smoker. In the hospital, the patient was found to have a COVID-19 infection. Her symptoms started approximately 2 days ago. The patient received vaccination in the past including a total of 3 shots for COVID- 19 as part of her vaccination since the beginning of pandemic. No previous history of COVID-19 infection that has been documented in this patient. Chest x-ray done in the emergency was consistent with CHF with cardiomegaly and pulm vascular congestion. Her most recent cardiac stress test was done on 02/09 and 02/11/2024 that showed large area of remote insult over the anterior wall without any reversible ischemia. Estimated ejection fraction was 51%. Currently, the patient is on IV Solu-Medrol 40 mg every 12 hours. Home medication resumed. She remains on long-term anticoagulation with Xarelto. She is also on a combination of Lasix and Aldactone. She is on Levemir insulin 10 units daily + scale coverage. She remains on Plavix. On 05/01/2024, the patient is being seen for a follow-up. The patient is being treated for acute COVID-19 infection that was further complicated by a component of CHF exacerbation and hypoxic respiratory failure. The patient is doing better compared to yesterday. She is currently on 2 L with a pulse ox of 98%. No fever. No chills. No hemodynamic instability. She remains on IV Solu- Medrol 40 mg every 12 hours. She remains on Aldactone 50 mg p.o. daily and Lasix 40 mg p.o. daily. She remains on anticoagulation with Xarelto 20 mg p.o. daily. Note that her hemoglobin A1c was at 8.2. The patient's procalcitonin level was 0.18. proBNP level was 1480. LDH was 255 and CRP was 3.2. The white cell count is at 7.5 with a hemoglobin of 11.2. No new complaints otherwise for now. On 05/02/2024, the patient is being seen for a follow-up. The patient is doing well. She is currently on room air oxygen with a pulse ox of 93%. Blood sugars are slightly elevated and the patient receiving systemic steroids. The patient remains on IV Solu-Medrol 40 mg every 12 hours. She is also on IV Rocephin as the patient was found to have a gram-negative urinary tract infection and final cultures still pending. Creatinine is at 1.3, BUN 63, the white cell count of 7.5. On 05/03/2024, the patient developed atrial fibrillation with rapid ventricular response. The patient is to be started on amiodarone. Meanwhile, the patient is maintained on metoprolol 25 mg twice a day. The patient remains on Xarelto. In regards to her COPD exacerbation COVID-19 infection, she remains stable. She is currently on room air oxygen with a pulse ox of 94%. No chest pain. No altered mentation. No nausea or vomiting. Compliance Testing Analyst on the case regarding the atrial fibrillation. She is still encountering some shortness of breath and generalized bodyaches and weakness. She has a Klebsiella pneumoniae tract infection remains on IV Rocephin. Patient was seen today on 05/04/2024, patient is sitting in bed, does not seem to be in any distress, she has no cough no wheezing no shortness of breath, patient is receiving treatment for a urinary tract infection, she had some vague abdominal discomfort earlier today, during my evaluation the patient was asymptomatic. Patient is wondering if she could be discharged home, however the patient is to be seen by cardiology for atrial fibrillation, and the recommendation was to increase her metoprolol, obviously no plans to discharge the patient today. Pulmonary garrido the patient is doing well, and relatively asymptomatic. Seen today on 05/05/2024, patient continues to do well, pulmonary garrido minimal cough, no wheezing, no shortness of breath no chest pain, patient is on room air, seems to be recovering nicely from her acute COVID-19 infection. Patient has intermittent episodes of nausea, and dry heaves this morning. On the monitor patient is in atrial flutter with heart rate of 120 and is being addressed by cardiology. And her metoprolol was increased to 75 twice daily. Amiodarone was added. Cardiology is considering KIMBER and possible cardioversion tomorrow WBC count is 5.4 hemoglobin 12.3 electrolytes are normal BUN is 67 creatinine 1.18 and her Lasix dose was cut down by cardiology Patient was seen today on 05/06/2024, patient is feeling great today, asymptomatic, she has no active pulmonary or cardiac symptoms. Her atrial fibrillation seems to be better controlled, patient is on oral amiodarone, has b een receiving fluids at 75 cc/h, renal functioning is slightly worse today compared to the last few days 1.18 went up to 1.56/creatinine patient is not receiving any diuretics. Seen today on 05/07/2024, patient is doing well, relatively asymptomatic. Patient remains on room air with O2 saturation 92 to 95%, does not seem to be in any distress, renal functioning is being addressed by nephrology, and there is improvement in her renal profile. Her diuretics have been adjusted. Creatinine is 1.35 today Objective - Vital Signs Vital signs: Vital Signs Temp 97.8 F 05/07/24 08:00 Pulse 68 05/07/24 11:09 Resp 16 05/07/24 11:09 BP 118/57 05/07/24 11:09 Pulse Ox 92 L 05/07/24 11:09 FiO2 Intake & Output 05/06/24 05/07/24 05/07/24 18:59 06:59 18:59 Intake Total 190 Balance 190 Weight 112.43 kg Intake: IV 10 Invasive Line 3 10 Oral 180 Other: Voiding Method Toilet Toilet Toilet # Voids 2 # Bowel Movements 1 - Exam GENERAL: Revealed 68-year-old female in no distress, on room air Head: Atraumatic, normocephalic HEENT: PERRLA, EOMI, nonicteric no neck masses no JVD no stridor LUNGS: Symmetrical chest expansion clear throughout no crackles rhonchi or wheezes HEART: normal S1-S2, no S3 gallop. No murmur ABDOMEN: Obese soft nontender No rebound no guarding EXTREMITIES: No clubbing edema or cyanosis NEUROLOGIC: Alert oriented x 3 no gross focal deficit Psychiatric: Normal mood affect and no mental status examination Skin: No rash - Labs CBC & Chem 7: 05/04/24 06:04 05/07/24 06:40 Labs: Abnormal Lab Results - Last 24 Hours (Table) 05/06/24 05/06/24 05/07/24 Range/Units 16:41 20:04 06:28 BUN (7-17) mg/dL Creatinine (0.52-1.04) mg/dL Glucose (74-99) mg/dL POC Glucose (mg/dL) 278 H 297 H 126 H (70-110) mg/dL 05/07/24 05/07/24 Range/Units 06:40 11:29 BUN 81 H (7-17) mg/dL Creatinine 1.35 H (0.52-1.04) mg/dL Glucose 118 H (74-99) mg/dL POC Glucose (mg/dL) 241 H (70-110) mg/dL Assessment and Plan Assessment: Impression Acute COVID-19 infection Acute hypoxic respiratory failure, likely due to COVID-19 infection with a component of CHF exacerbation. Improving Acute dyspnea, secondary to suspected to be related to COVID 19 with a component of diastolic CHF exacerbation, A-fib with RVR, being addressed by cardiology may consider KIMBER and cardioversion tomorrow Klebsiella urinary tract infection Obesity Sinus bradycardia, post pacemaker insertion Coronary artery disease, with previous history of PCI/stenting to the LAD History of hypertension History of hyperlipidemia History of diabetes mellitus Morbid obesity with a BMI of 43.3 kg/m History of moderate obstructive sleep apnea, with an AHI of 26, maintained on CPAP at home with a pressure support of 8, will not be able to tolerate full f acemask currently with nasal fractures Lifetime non-smoker Recommendation: Continue oral amiodarone, and metoprolol 75 mg twice daily Continue IV fluid at 75 cc/h, renal functioning is improving Continue to hold diuretics Continue present supportive care measures Cardiology is considering KIMBER on outpatient basis Continue home meds Continue Xarelto and Plavix Will continue to follow Time with Patient: Less than 30
[2024-05-07 16:33] LABS: Glucose,Whole Blood 339 mg/dL (70-110)
[2024-05-07] MEDS: RIVAROXABAN 15 MG TAB PO SCH (16:43)
[2024-05-07 20:41] LABS: Glucose,Whole Blood 393 mg/dL (70-110)
[2024-05-08 06:17] LABS: Glucose,Whole Blood 123 mg/dL (70-110)
[2024-05-08 09:19] VITALS: TEMP 97.8
[2024-05-08 09:45] LABS: African American GFR (CKD) 47 (>60 ml/min/1.73 sqM); Anion Gap 9 mmol/L; Blood Urea Nitrogen 63 mg/dL (7-17); Calcium 10.2 mg/dL (8.4-10.2); Carbon Dioxide 24 mmol/L (22-30); Chloride 106 mmol/L (98-107); Glucose 94 mg/dL (74-99); Non-African American GFR(CKD) 41 (>60 ml/min/1.73 sqM); Potassium 4.4 mmol/L (3.5-5.1); Sodium 139 mmol/L (137-145)
--- NOTE | 2024-05-08 10:37 | P.PN ---
Subjective HISTORY OF PRESENT ILLNESS: This is a 68-year-old female with a past medical history significant for cardiomyopathy, atrial fibrillation, cardioversion March 2023, ablation, and coronary artery disease with previous stenting. Patient follows in the office with Dr. Cabrales. We have been asked to see the patient in consultation for A-fib with RVR. Patient examined at the bedside. Patient is admitted to the hospital secondary to COVID infection. Patient went into A-fib with RVR yesterday and was transferred to [facility]. Patient's telemetry this morning appears to be sinus tachycardia with heart rate around 115. Patient reports feeling nauseated this morning and having some episodes of vomiting. She denies any chest pain or pressure. Denies any shortness of breath. She denies dizziness or palpitations. DIAGNOSTICS: - EKG on admission revealed sinus mechanism. Bedside telemetry appears to be sinus tachycardia. - Chest xray cardiomegaly and mild pulmonary vascular congestion - Laboratory data: WBC 5.4. Hemoglobin 12.3. Platelet count 156. Sodium 140. Potassium 5.2. BUN 67. Creatinine 1.18. - Current home cardiac medications include Plavix 75 mg daily, Lipitor 40 mg at night, metoprolol succinate 25 mg daily, Lasix 40 mg daily, Aldactone 25 mg daily, Xarelto 20 mg with dinner, Jardiance 10 mg daily - Most recent echocardiogram obtained in September 2023 revealed ejection fraction 45 to 50% with no pericardial effusion - Cardiac catheterization history: February 2023 with stenting of the mid LAD - Patient underwent Lexiscan stress test in January 2024 which was negative for ischemia 05/05/2024 Patient examined this morning at the bedside. Patient states that she is still feeling unwell this morning. Patient has a basin in her lap. She reports nausea and dry heaves this morning. BUN this morning 67. EKG yesterday revealed atrial flutter. Patient remains in atrial flutter this morning with a heart rate around 120. 05/06/2024 Patient examined this morning at the bedside. Patient states that she is feeling better today. Her nausea has resolved. She denies chest pain or pressure. She denies shortness of breath. Blood pressure is stable. She remains in atrial flutter with controlled ventricular rates in the 70s and 80s. She has been started on oral amiodarone. Patient has been receiving IV fluids at 75 cc an hour since yesterday morning. However patient's creatinine today is worsened at 1.56. BUN 87. 05/07/2024 Patient examined this morning at bedside. Patient denies chest pain or pressure . She denies shortness of breath. Patient's nausea has resolved. Creatinine this morning 1.35. Patient remains in atrial flutter with controlled ventricular rates this morning. Vital signs are stable. 05/08/2024 Patient examined this morning at the bedside. Patient currently denies any chest pain or pressure. She denies shortness of breath. Vital signs are stable. She remains in atrial flutter with controlled ventricular rate. PHYSICAL EXAM: VITAL SIGNS: Reviewed. GENERAL: Well-developed in no acute distress. HEENT: Head is normocephalic. Pupils are equal, round. Sclerae anicteric. Mucous membranes of the mouth are moist. Neck supple. No JVD or thyromegaly LUNGS: Respirations even and unlabored. Lungs clear to auscultation. HEART: Regular rate and rhythm. S1 and S2 heard. ABDOMEN: Soft. Nondistended. Nontender. EXTREMITIES: Normal range of motion. No clubbing or cyanosis. Peripheral pulses intact. No lower extremity edema NEUROLOGIC: Awake and alert. Oriented x 3. ASSESSMENT: Acute COVID-19 Nausea and vomiting Paroxysmal atrial fibrillation with RVR New onset typical atrial flutter with RVR, 2-1 conduction Mild ischemic cardiomyopathy, 45 to 50% Coronary artery disease with previous stenting to the mid LAD, 02/2023 Known severe disease of diagonal 1 (small vessel) History of cardioversion, March 2023 History of A-fib ablation, October 2023 Hypertension Hyperlipidemia Diabetes Obesity: BMI 40.1 Acute kidney injury PLAN: Continue oral amiodarone 200 mg twice a day for 1 week. After 1 week, decrease to 200 mg daily Continue to hold diuretics. Reassess resuming diuretics on an outpatient basis Continue additional cardiac medications Will consider outpatient KIMBER cardioversion Stable for discharge home today from a cardiac standpoint Further recommendations pending patient course Nurse practitioner note has been reviewed by physician. Signing provider agrees with the documented findings, assessment, and plan of care documented by SPECIAL NEEDS BABYSITTER as a scribe. Objective - Vital Signs Vital signs: Vital Signs Temp 97.8 F 05/08/24 08:00 Pulse 81 05/08/24 08:00 Resp 18 05/08/24 08:00 BP 127/74 11/15/24 08:00 Pulse Ox 95 05/08/24 08:00 FiO2 Intake & Output 05/07/24 05/08/24 05/08/24 18:59 06:59 18:59 Intake Total 240 Balance 240 Weight 112.2 kg Intake: Oral 240 Other: Voiding Method Toilet Toilet Toilet # Voids 1 # Bowel Movements 1 - Labs CBC & Chem 7: 05/04/24 06:04 05/08/24 05:23 Labs: Abnormal Lab Results - Last 24 Hours (Table) 05/07/24 05/07/24 05/07/24 Range/Units 11:29 16:32 20:40 BUN (7-17) mg/dL Creatinine (0.52-1.04) mg/dL POC Glucose (mg/dL) 241 H 339 H 393 H (70-110) mg/dL 05/08/24 05/08/24 Range/Units 05:23 06:10 BUN 63 H (7-17) mg/dL Creatinine 1.33 H (0.52-1.04) mg/dL POC Glucose (mg/dL) 123 H (70-110) mg/dL
--- NOTE | 2024-05-08 10:50 | P.PN ---
Subjective patient is seen for follow-up for acute kidney injury. Renal function has improved with serum creatinine down to 1.3. Serum calcium noted at 10.2. Patient is not maintained on any calcium supplements. Objective - Vital Signs Vital signs: Vital Signs Temp 97.8 F 05/08/24 08:00 Pulse 81 05/08/24 08:00 Resp 18 05/08/24 08:00 BP 127/74 05/08/24 08:00 Pulse Ox 95 05/08/24 08:00 FiO2 Intake & Output 05/07/24 05/08/24 05/08/24 18:59 06:59 18:59 Intake Total 240 Balance 240 Weight 112.2 kg Intake: Oral 240 Other: Voiding Method Toilet Toilet Toilet # Voids 1 # Bowel Movements 1 - Exam patient is awake, comfortable, no acute distress Alert oriented 3 She appears euvolemic with no evidence of edema in the lower extremities. WATER JET LOOM FIXER exam grossly intact - Labs CBC & Chem 7: 05/04/24 06:04 05/08/24 05:23 Labs: Abnormal Lab Results - Last 24 Hours (Table) 05/07/24 05/07/24 05/07/24 Range/Units 11:29 16:32 20:40 BUN (7-17) mg/dL Creatinine (0.52-1.04) mg/dL POC Glucose (mg/dL) 241 H 339 H 393 H (70-110) mg/dL 05/08/24 05/08/24 Range/Units 05:23 06:10 BUN 63 H (7-17) mg/dL Creatinine 1.33 H (0.52-1.04) mg/dL POC Glucose (mg/dL) 123 H (70-110) mg/dL Assessment and Plan Assessment: 1. Acute kidney injury secondary to hypotension and recent diuresis, currently improved. Patient was also maintained on NSAIDs. UA showed no protein or blood . Currently maintained on IV fluids at 50 mL an hour. 2. Acute gout with 19 pneumonia 3. Acute hypoxic respiratory failure secondary to COVID-19 pneumonia and diastolic CHF, improved 4. Mild hypercalcemia. Obtain workup Plan: check vitamin D and PTH levels along with immunofixation. Patient is advised to avoid use of any Tums or calcium supplements. Patient can be discharged from nephrology standpoint. Repeat labs as outpatient
[2024-05-08 11:07] VITALS: BP 140/63; PULSE 70; RESP 16
[2024-05-08 11:18] LABS: Glucose,Whole Blood 278 mg/dL (70-110)
--- NOTE | 2024-05-08 12:21 | P.PN ---
Subjective Progress Note Date: 05/08/24 Principal diagnosis: Acute COVID-19 infection This is a 68-year-old female patient, seen in the emergency department because of worsening shortness of breath. The patient is obese with a body mass index of 42. The patient is known to have coronary disease with previous coronary stenting, chronic A-fib, CHF, hypertension hyperlipidemia obstructive sleep apnea along with history of diabetes mellitus. He is also known to have previous history of pacemaker insertion implanted on 11/25/2023 for sick sinus syndrome and symptomatic bradycardia. Her baseline left-sided ejection fraction is in order of 45%. The patient came into the hospital because of worsening shortness of breath, cough and congestion and wheezing. She was found to be hypoxic and currently she is on 2 L of oxygen by nasal cannula. Noted the patient is a lifetime non-smoker. In the hospital, the patient was found to have a COVID-19 infection. Her symptoms started approximately 2 days ago. The patient received vaccination in the past including a total of 3 shots for COVID- 19 as part of her vaccination since the beginning of pandemic. No previous history of COVID-19 infection that has been documented in this patient. Chest x-ray done in the emergency was consistent with CHF with cardiomegaly and pulm vascular congestion. Her most recent cardiac stress test was done on 02/09 and 02/11/2024 that showed large area of remote insult over the anterior wall without any reversible ischemia. Estimated ejection fraction was 51%. Currently, the patient is on IV Solu-Medrol 40 mg every 12 hours. Home medication resumed. She remains on long-term anticoagulation with Xarelto. She is also on a combination of Lasix and Aldactone. She is on Levemir insulin 10 units daily + scale coverage. She remains on Plavix. On 05/01/2024, the patient is being seen for a follow-up. The patient is being treated for acute COVID-19 infection that was further complicated by a component of CHF exacerbation and hypoxic respiratory failure. The patient is doing better compared to yesterday. She is currently on 2 L with a pulse ox of 98%. No fever. No chills. No hemodynamic instability. She remains on IV Solu- Medrol 40 mg every 12 hours. She remains on Aldactone 50 mg p.o. daily and Lasix 40 mg p.o. daily. She remains on anticoagulation with Xarelto 20 mg p.o. daily. Note that her hemoglobin A1c was at 8.2. The patient's procalcitonin level was 0.18. proBNP level was 1480. LDH was 255 and CRP was 3.2. The white cell count is at 7.5 with a hemoglobin of 11.2. No new complaints otherwise for now. On 05/02/2024, the patient is being seen for a follow-up. The patient is doing well. She is currently on room air oxygen with a pulse ox of 93%. Blood sugars are slightly elevated and the patient receiving systemic steroids. The patient remains on IV Solu-Medrol 40 mg every 12 hours. She is also on IV Rocephin as the patient was found to have a gram-negative urinary tract infection and final cultures still pending. Creatinine is at 1.3, BUN 63, the white cell count of 7.5. On 05/03/2024, the patient developed atrial fibrillation with rapid ventricular response. The patient is to be started on amiodarone. Meanwhile, the patient is maintained on metoprolol 25 mg twice a day. The patient remains on Xarelto. In regards to her COPD exacerbation COVID-19 infection, she remains stable. She is currently on room air oxygen with a pulse ox of 94%. No chest pain. No altered mentation. No nausea or vomiting. 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 She is still encountering some shortness of breath and generalized bodyaches and weakness. She has a Klebsiella pneumoniae tract infection remains on IV Rocephin. Patient was seen today on 05/04/2024, patient is sitting in bed, does not seem to be in any distress, she has no cough no wheezing no shortness of breath, patient is receiving treatment for a urinary tract infection, she had some vague abdominal discomfort earlier today, during my evaluation the patient was asymptomatic. Patient is wondering if she could be discharged home, however the patient is to be seen by cardiology for atrial fibrillation, and the recommendation was to increase her metoprolol, obviously no plans to discharge the patient today. Pulmonary garrido the patient is doing well, and relatively asymptomatic. Seen today on 05/05/2024, patient continues to do well, pulmonary garrido minimal cough, no wheezing, no shortness of breath no chest pain, patient is on room air, seems to be recovering nicely from her acute COVID-19 infection. Patient has intermittent episodes of nausea, and dry heaves this morning. On the monitor patient is in atrial flutter with heart rate of 120 and is being addressed by cardiology. And her metoprolol was increased to 75 twice daily. Amiodarone was added. Cardiology is considering KIMBER and possible cardioversion tomorrow WBC count is 5.4 hemoglobin 12.3 electrolytes are normal BUN is 67 creatinine 1.18 and her Lasix dose was cut down by cardiology Patient was seen today on 05/06/2024, patient is feeling great today, asymptomatic, she has no active pulmonary or cardiac symptoms. Her atrial fibrillation seems to be better controlled, patient is on oral amiodarone, has b een receiving fluids at 75 cc/h, renal functioning is slightly worse today compared to the last few days 1.18 went up to 1.56/creatinine patient is not receiving any diuretics. Seen today on 05/07/2024, patient is doing well, relatively asymptomatic. Patient remains on room air with O2 saturation 92 to 95%, does not seem to be in any distress, renal functioning is being addressed by nephrology, and there is improvement in her renal profile. Her diuretics have been adjusted. Creatinine is 1.35 today Patient was seen today on 05/08/2024, patient is doing well, asymptomatic no active pulmonary symptoms, patient was seen by nephrology and cleared the patient for discharge home today. Pulmonary garrido I am also clearing the patient to be discharged home and follow-up on outpatient basis. Patient is on room air, not in any distress, renal functioning has improved. Objective - Vital Signs Vital signs: Vital Signs Temp 97.8 F 05/08/24 08:00 Pulse 70 05/08/24 11:06 Resp 16 05/08/24 11:06 BP 140/63 05/08/24 11:06 Pulse Ox 93 L 05/08/24 11:06 FiO2 Intake & Output 05/07/24 05/08/24 05/08/24 18:59 06:59 18:59 Intake Total 240 Balance 240 Weight 112.2 kg Intake: Oral 240 Other: Voiding Method Toilet Toilet Toilet # Voids 1 # Bowel Movements 1 - Exam GENERAL: Revealed 68-year-old female in no distress, on room air Head: Atraumatic, normocephalic HEENT: PERRLA, EOMI, nonicteric no neck masses no JVD no stridor LUNGS: Symmetrical chest expansion clear throughout no crackles rhonchi or wheezes HEART: normal S1-S2, no S3 gallop. No murmur ABDOMEN: Obese soft nontender No rebound no guarding EXTREMITIES: No clubbing edema or cyanosis NEUROLOGIC: Alert oriented x 3 no gross focal deficit Psychiatric: Normal mood affect and no mental status examination Skin: No rash - Labs CBC & Chem 7: 05/04/24 06:04 05/08/24 05:23 Labs: Abnormal Lab Results - Last 24 Hours (Table) 05/07/24 05/07/24 05/08/24 Range/Units 16:32 20:40 05:23 BUN 63 H (7-17) mg/dL Creatinine 1.33 H (0.52-1.04) mg/dL POC Glucose (mg/dL) 339 H 393 H (70-110) mg/dL 05/08/24 05/08/24 Range/Units 06:10 11:17 BUN (7-17) mg/dL Creatinine (0.52-1.04) mg/dL POC Glucose (mg/dL) 123 H 278 H (70-110) mg/dL Assessment and Plan Assessment: Impression Acute COVID-19 infection Acute hypoxic respiratory failure, likely due to COVID-19 infection with a component of CHF exacerbation. Resolved Acute dyspnea, secondary to suspected to be related to COVID 19 with a component of diastolic CHF exacerbation, resolved A-fib with RVR, being addressed by cardiology may consider KIMBER and cardioversion tomorrow Klebsiella urinary tract infection Obesity Sinus bradycardia, post pacemaker insertion Coronary artery disease, with previous history of PCI/stenting to the LAD History of hypertension History of hyperlipidemia History of diabetes mellitus Morbid obesity with a BMI of 43.3 kg/m History of moderate obstructive sleep apnea, with an AHI of 26, maintained on CPAP at home with a pressure support of 8, will not be able to tolerate full facemask currently with nasal fractures Lifetime non-smoker Recommendation: Continue present supportive care measures Continue cardiac meds including amiodarone metoprolol Continue to hold diuretics Will clear the patient for discharge if cleared by other consultants Continue Xarelto and Plavix Time with Patient: Less than 30
--- NOTE | 2024-05-08 13:45 | P.PN ---
Subjective Progress Note Date: 05/07/24 H&P Date: 04/30/24 Luz Swann is a 68 yo F with PMH significant for recent PPM, cardiac ablation, cardioversion, coronary artery disease with previous stenting, persistent atrial fibrillation, cardiomyopathy hypertension, hyperlipidemia, obesity, obstructive sleep apnea, diabetes, and cardiomyopathy presented to the ER with complaints of dyspnea, increased weakness over the last 24 to 48 hours accompanied by ongoing nonproductive cough greater than 2 weeks. Denies chills, fevers, sore throat, body aches, sick contacts, headache or lightheadedness. On admission O2 sats initially 92% on room air, dropped down to 85% on room air, febrile with Tmax of 101, WBC 4.2 . Hemoglobin 10.6, platelets 103. Electrolytes within normal limits. Bicarb 24, BUN 55, creatinine decreased to 1.13 (baseline 0.9-1). chest x-ray reports cardiomegaly, mild pulmonary vascular congestion.pro.BNP ordered. Aldactone increased. currently maintaining O2 sats in the 90s on 2 L nasal cannula. UA positive for nitrates, large leukocytes, many bacteria. 05/01/2024 maintained on diuretics, bronchodilators, IV steroids, respiratory status slowly improving. Reports less shortness of breath. maintained O2 sats in the 90s on on 2 L nasal cannula O2 .blood sugars uncontrolled .hemoglobin A1c 8.2 .her significant other has just been diagnosed with COVID as well. Empiric antibiotics for potential UTI, culture in progress. BMP pending. afebrile, normal WBC. Procalcitonin normal, 0.18. LDH and CRP elevated at 255, 3.20. 05/04/2024 Yesterday developed atrial fibrillation with RVR, transferred to telemetry.sitting up in chair, complaining of nausea with some emesis. Tachycardic, EKG ordered. Denies chest pain, palpitations or shortness of breath. Maintaining O2 sats In the high 90s on room air. Afebrile, normal WBC, hemoglobin 12.3, platelets 156, sodium 140, potassium 5.2, bicarb 29, BUN 67, creatinine 1.18. Maintained on ceftriaxone for acute UTI. Culture reporting Klebsiella pneumonia. EKG reporting atrial flutter/tachycardia with RVR, beta- lawson increased per cardiology. 05/05/2024 sitting up in chair, complaining of nausea. Maintained on antibiotics for UTI. Cough improving. Denies chest pain, palpitations or sh ortness of breath. EKG completed yesterday reporting atrial flutter. Telemetry atrial flutter with heart rates in the 1 teens. BUN 67, creatinine 1.18. Maintaining O2 sats in the 90s on room air. 05/06/2024 telemetry reporting atrial flutter, rate controlled. Transitioned to oral amiodarone. KIMBER/cardioversion canceled. nausea subsided. Yesterday, losartan/HCTZ discontinued, received IV fluids yesterday, renal function worsening. Denies chest pain, palpitations or shortness of breath, maintaining O2 sats in the 90s on room air. 05/07/2024 telemetry atrial flutter with controlled ventricular rate. Coarse loose nonproductive cough, maintaining O2 sats in the 90s on room air. BUN 81, creatinine 1.35, evaluated by nephrology, diuretics on hold. Objective - Vital Signs Vital signs: Vital Signs Temp 97.8 F 05/07/24 08:00 Pulse 68 05/07/24 11:09 Resp 16 05/07/24 11:09 BP 118/57 05/07/24 11:09 Pulse Ox 92 L 05/07/24 11:09 FiO2 Intake & Output 05/06/24 05/07/24 05/07/24 18:59 06:59 18:59 Intake Total 190 Balance 190 Weight 112.43 kg Intake: IV 10 Invasive Line 3 10 Oral 180 Other: Voiding Method Toilet Toilet Toilet # Voids 2 # Bowel Movements 1 - Exam Gen: Obese, alert and oriented x 3, sitting up in chair, NAD HEENT: NC, AT,conjunctiva pink, sclera anicteric. Neck: supple, no JVD. CV: S1 and S2, tachycardic,no murmur, no edema Lungs: Unlabored, equal air entry ,CTA Abd: soft, non distended, nontender, positive bowel sounds Neuro: Cranial nerves II through XII grossly intact. No focal deficit. Skin: warm and dry - Labs CBC & Chem 7: 05/04/24 06:04 05/08/24 05:23 Labs: Abnormal Lab Results - Last 24 Hours (Table) 05/06/24 05/06/24 05/07/24 Range/Units 16:41 20:04 06:28 BUN (7-17) mg/dL Creatinine (0.52-1.04) mg/dL Glucose (74-99) mg/dL POC Glucose (mg/dL) 278 H 297 H 126 H (70-110) mg/dL 05/07/24 05/07/24 Range/Units 06:40 11:29 BUN 81 H (7-17) mg/dL Creatinine 1.35 H (0.52-1.04) mg/dL Glucose 118 H (74-99) mg/dL POC Glucose (mg/dL) 241 H (70-110) mg/dL Assessment and Plan Assessment: Acute COVID-19 infection Acute hypoxic respiratory failure secondary to the above, resolved Mild acute on chronic CHF exacerbation, systolic dysfunction, EF 45-50%, chest x-ray suggest mild pulmonary vascular congestion, BNP 1480 Acute UTI, culture reporting Klebsiella pneumoniae Acute on chronic paroxysmal A-fib with RVR New onset atrial flutter with RVR Acute renal failure Chronic intermittent asthma Chronic anemia Permanent pacemaker implantation 11/25/2023 secondary to sick sinus syndrome with symptomatic bradycardia Recent cardiac ablation 10/31/2023 CAD, history of stenting to the LAD Hypertension Hyperlipidemia History of ischemic cardiomyopathy, EF 45% Diabetes mellitus II, hyperglycemic, A1c 8.2, further diabetic education outpatient in clinic, at follow-up with PCP Morbid obesity, BMI 42 Obstructive sleep apnea, uses CPAP Gait dysfunction, uses walker Plan: Continue on current medication regimen ,monitoring and symptomatic treatment. Maintained on oral amiodarone. cardiology discussing outpatient KIMBER/cardioversion. Nephrology following with close monitoring of renal function. Repeat labs ordered for a.m. Discharge planning in progress for maryjane goff pending continued improvement in renal function, stable cardiac rhythm. The impression and plan of care has been dictated as directed. : I performed a history and examination of this patient, discussed the same with the dictator. I agree with the dictator's note ,documented as a scribe. Any additional findings or plans will be noted.
--- NOTE | 2024-05-08 13:53 | P.DS ---
Providers Date of admission: 04/29/24 22:09 Expected date of discharge: 05/08/24 Attending physician: Forest Moore MD Consults: 04/29/24 22:09 Consult Physician Routine Consulting Provider: Byron Pereira Consult Reason/Comments: sleep apnea, copd?, covid 19 infection Do you want consulting provider notified?: Yes 05/03/24 09:18 Consult Physician Routine Consulting Provider: Sorin Cabrales Consult Reason/Comments: Afib with RVR Do you want consulting provider notified?: Yes 05/06/24 11:24 Consult Physician Routine Consulting Provider: Elena Lipscomb Consult Reason/Comments: Acute renal failure Do you want consulting provider notified?: Yes Primary care physician: Forest Moore MD Hospital Course: Final Diagnoses: Acute COVID-19 infection Acute hypoxic respiratory failure secondary to the above, resolved Mild acute on chronic CHF exacerbation, systolic dysfunction, EF 45-50%, chest x-ray suggest mild pulmonary vascular congestion, BNP 1480, resolved Acute UTI, culture reporting Klebsiella pneumoniae, completed treatment Acute on chronic paroxysmal A-fib with RVR New onset atrial flutter with RVR, controlled Acute renal failure, improving Chronic intermittent asthma, stable Chronic anemia Permanent pacemaker implantation 11/25/2023 secondary to sick sinus syndrome with symptomatic bradycardia Recent cardiac ablation 10/31/2023 CAD, history of stenting to the LAD Hypertension Hyperlipidemia History of ischemic cardiomyopathy, EF 45% Diabetes mellitus II, hyperglycemic, A1c 8.2, further diabetic education outpatient in clinic, at follow-up with PCP Morbid obesity, BMI 42 Obstructive sleep apnea, uses CPAP Gait dysfunction, uses walker Calcium 10.2 Hospital course:Luz Swann is a 68 yo F with PMH significant for recent PPM, cardiac ablation, cardioversion, coronary artery disease with previous stenting, persistent atrial fibrillation, cardiomyopathy hypertension, hyperlipidemia, obesity, obstructive sleep apnea, diabetes, and cardiomyopathy presented to the ER with complaints of dyspnea, increased weakness over the last 24 to 48 hours accompanied by ongoing nonproductive cough greater than 2 weeks. Denies chills, fevers, sore throat, body aches, sick contacts, headache or lightheadedness. On admission O2 sats initially 92% on room air, dropped down to 85% on room air, febrile with Tmax of 101, WBC 4.2 . Hemoglobin 10.6, platelets 103. Electrolytes within normal limits. Bicarb 24, BUN 55, creatinine decreased to 1.13 (baseline 0.9-1). chest x-ray reports cardiomegaly, mild pulmonary vascular congestion.pro.BNP ordered. Aldactone increased. currently maintaining O2 sats in the 90s on 2 L nasal cannula. UA positive for nitrates, large leukocytes, many bacteria. 05/01/2024 maintained on diuretics, bronchodilators, IV steroids, respiratory status slowly improving. Reports less shortness of breath. maintained O2 sats in the 90s on on 2 L nasal cannula O2 .blood sugars uncontrolled .hemoglobin A1c 8.2 .her significant other has just been diagnosed with COVID as well. Empiric antibiotics for potential UTI, culture in progress. BMP pending. afebrile, normal WBC. Procalcitonin normal, 0.18. LDH and CRP elevated at 255, 3.20. 05/04/2024 Yesterday developed atrial fibrillation with RVR, transferred to telemetry.sitting up in chair, complaining of nausea with some emesis. Tachycardic, EKG ordered. Denies chest pain, palpitations or shortness of breath. Maintaining O2 sats In the high 90s on room air. Afebrile, normal WBC, hemoglobin 12.3, platelets 156, sodium 140, potassium 5.2, bicarb 29, BUN 67, creatinine 1.18. Maintained on ceftriaxone for acute UTI. Culture reporting Klebsiella pneumonia. EKG reporting atrial flutter/tachycardia with RVR, beta- lawson increased per cardiology. 05/05/2024 sitting up in chair, complaining of nausea. Maintained on antibiotics for UTI. Cough improving. Denies chest pain, palpitations or shortness of breath. EKG completed yesterday reporting atrial flutter. Telemetry atrial flutter with heart rates in the 1 teens. BUN 67, creatinine 1.18. Maintaining O2 sats in the 90s on room air. 05/06/2024 telemetry reporting atrial flutter, rate controlled. Transitioned to oral amiodarone. KIMBER/cardioversion canceled. nausea subsided. Yesterday, losartan/HCTZ discontinued, received IV fluids yesterday, renal function worsening. Denies chest pain, palpitations or shortness of breath, maintaining O2 sats in the 90s on room air. 05/07/2024 telemetry atrial flutter with controlled ventricular rate. Coarse loose nonproductive cough, maintaining O2 sats in the 90s on room air. BUN 81, creatinine 1.35, evaluated by nephrology, diuretics on hold. Maintained on oral amiodarone. cardiology discussing outpatient KIMBER/cardioversion. Nephrology following with close monitoring of renal function. Repeat labs ordered for a.m. Discharge planning in progress for tomorrow pending continued improvement in renal function, stable cardiac rhythm. 05/08/2024 significant clinical improvement. Remains in atrial flutter, controlled. Denies chest pain, palpitations or shortness of breath. Reports cough has lessened. Rested easier last night. Renal function continues improving, bicarb 24, BUN decreased to 63, creatinine 1.33. Cleared by cardiology and pulmonary for discharge. Patient will be discharged home home today in a stable condition with guarded prognosis pending final DC recommendations and clearance per nephrology. Diuretics remain on hold, reevaluate outpatient in clinic. The impression and plan of care has been dictated as directed. : I performed a history and examination of this patient, discussed the same with the dictator. I agree with the dictator's note ,documented as a scribe. Any additional findings or plans will be noted. Patient Condition at Discharge: Stable Plan - Discharge Summary Discharge Rx Participant: No New Discharge Prescriptions: New Zinc Sulfate [Orazinc] 220 mg PO DAILY #30 cap guaiFENesin SYRUP 100MG/5ML [Robitussin] 200 mg PO Q6HR PRN ml PRN Reason: Cough Albuterol Inhaler [Ventolin Hfa Inhaler] 2 puff INHALATION QID PRN #1 each PRN Reason: Shortness Of Breath Metoprolol Tartrate [Lopressor] 75 mg PO BID #180 tab Ascorbic Acid [Vitamin C] 500 mg PO BID tab Amiodarone [Cordarone] 200 mg PO DIRECTED #35 tab Continue Omeprazole 20 mg PO HS Rivaroxaban [Xarelto] 20 mg PO W/SUPPER allopurinoL [Zyloprim] 300 mg PO DAILY oxyBUTYnin chloride [Ditropan] 5 mg PO DAILY Cholecalciferol [Vitamin D3 (25 Mcg = 1000 Iu)] 25 mcg PO DAILY Pregabalin [Lyrica] 150 mg PO TID Nitroglycerin Sl Tabs [Nitrostat] 0.4 mg SUBLINGUAL Q5M PRN #50 tab PRN Reason: Chest Pain Cetirizine HCl [Zyrtec] 10 mg PO DAILY Insulin Aspart [NovoLOG Flexpen] 10 - 12 units SQ PC-TID HYDROcodone/APAP 10-325MG [[place] 10-325] 1 tab PO QID Amitriptyline HCl [Elavil] 10 mg PO HS Azelastine HCl [Astelin Nasal [place]] 1 spray EA NOSTRIL BID Tirzepatide [Mounjaro] 10 mg SQ FR Ferrous Sulfate [Iron (65 MG Elemental)] 325 mg PO DAILY Empagliflozin [Jardiance] 10 mg PO DAILY Tamsulosin [Flomax] 0.4 mg PO PC-BRKFST 30 Days #30 cap Levothyroxine Sodium [Synthroid] 50 mcg PO DAILY@0630 30 Days #30 tab Atorvastatin [Lipitor] 40 mg PO HS Clopidogrel [Plavix] 75 mg PO DAILY Discontinued Metoprolol Succinate [Metoprolol Succinate ER] 25 mg PO DAILY Losartan/Hydrochlorothiazide [Losartan-Hctz 100-25 mg Tab] 1 tab PO DAILY Furosemide [Lasix] 40 mg PO DAILY Spironolactone [Aldactone] 25 mg PO DAILY metFORMIN HCL [Glucophage] 500 mg PO BID Discharge Medication List Omeprazole 20 mg PO HS 06/04/16 [History] Rivaroxaban [Xarelto] 20 mg PO W/SUPPER 06/04/16 [History] allopurinoL [Zyloprim] 300 mg PO DAILY 06/04/16 [History] Cholecalciferol [Vitamin D3 (25 Mcg = 1000 Iu)] 25 mcg PO DAILY 09/03/22 [History] oxyBUTYnin chloride [Ditropan] 5 mg PO DAILY 09/03/22 [History] Pregabalin [Lyrica] 150 mg PO TID 11/17/22 [History] Nitroglycerin Sl Tabs [Nitrostat] 0.4 mg SUBLINGUAL Q5M PRN #50 tab 03/09/23 [Rx] Cetirizine HCl [Zyrtec] 10 mg PO DAILY 04/11/23 [History] Empagliflozin [Jardiance] 10 mg PO DAILY 04/11/23 [History] Ferrous Sulfate [Iron (65 MG Elemental)] 325 mg PO DAILY 10/19/23 [History] HYDROcodone/APAP 10-325MG [[place] 10-325] 1 tab PO QID 10/22/23 [History] Insulin Aspart [NovoLOG Flexpen] 10 - 12 units SQ PC-TID 10/22/23 [History] Levothyroxine Sodium [Synthroid] 50 mcg PO DAILY@0630 30 Days #30 tab 10/26/23 [Rx] Tamsulosin [Flomax] 0.4 mg PO PC-BRKFST 30 Days #30 cap 10/26/23 [Rx] Amitriptyline HCl [Elavil] 10 mg PO HS 04/29/24 [History] Atorvastatin [Lipitor] 40 mg PO HS 04/29/24 [History] Azelastine HCl [Astelin Nasal [place]] 1 spray EA NOSTRIL BID 04/29/24 [History] Clopidogrel [Plavix] 75 mg PO DAILY 04/29/24 [History] Tirzepatide [Mounjaro] 10 mg SQ FR 04/29/24 [History] Albuterol Inhaler [Ventolin Hfa Inhaler] 2 puff INHALATION QID PRN #1 each 05/04/24 [Rx] Ascorbic Acid [Vitamin C] 500 mg PO BID tab 05/04/24 [Rx] Zinc Sulfate [Orazinc] 220 mg PO DAILY #30 cap 05/04/24 [Rx] guaiFENesin SYRUP 100MG/5ML [Robitussin] 200 mg PO Q6HR PRN ml 05/04/24 [Rx] Amiodarone [Cordarone] 200 mg PO DIRECTED #35 tab 05/08/24 [Rx] Metoprolol Tartrate [Lopressor] 75 mg PO BID #180 tab 05/08/24 [Rx] Follow up Appointment(s)/Referral(s): Sorin Cabrales MD [Medical Doctor] - 1 Week (CALL AND MAKE DENYS!) Aging,[place] [facility] [NON-STAFF] - As Needed (Please call [place] [facility]ging to set up housekeeping and meals on wheels if needed.) Forest Moore MD [Primary Care Provider] - 3 Days (CALL AND MAKE DENYS!) Ambulatory/Diagnostic Orders: Basic Metabolic Panel [LAB.AMB] Time Frame: 3 Days, Location: None Selected Patient Instructions/Handouts: COPD (Chronic Obstructive Pulmonary Disease) (DC), Acute Respiratory Failure (GEN), COVID-19 (Coronavirus Disease 2019) (DC) Activity/Diet/Wound Care/Special Instructions: Hold diuretics, reassess outpatient Discharge/Stand Alone Forms: Help In The Home Discharge Disposition: HOME WITH HOME HEALTH SERVICES
== END 2024-05-08 12:45 | disposition home or self-care (01) | DRG 177 ==
LOC: EC 19:58 → 4SSUR 22:09 → 3SCARD 05-03 13:57
PROVIDERS: ADMIT Family Medicine; ATTEND Family Medicine
DX: U07.1 COVID-19 (principal); I50.23 Acute on chronic systolic (congestive) heart failure; J96.01 Acute respiratory failure with hypoxia; J12.82 Pneumonia due to coronavirus disease 2019; N17.9 Acute kidney failure, unspecified; I48.3 Typical atrial flutter; N39.0 Urinary tract infection, site not specified; J44.1 Chronic obstructive pulmonary disease with (acute) exacerbation; J44.0 Chronic obstructive pulmonary disease with (acute) lower respiratory infection; Z68.41 Body mass index [BMI] 40.0-44.9, adult; B96.1 Klebsiella pneumoniae [K. pneumoniae] as the cause of diseases classified elsewhere; I49.5 Sick sinus syndrome; I11.0 Hypertensive heart disease with heart failure; I25.5 Ischemic cardiomyopathy; E11.65 Type 2 diabetes mellitus with hyperglycemia; E66.01 Morbid (severe) obesity due to excess calories; I48.0 Paroxysmal atrial fibrillation; Z79.4 Long term (current) use of insulin; J45.20 Mild intermittent asthma, uncomplicated; D64.9 Anemia, unspecified; I25.10 Atherosclerotic heart disease of native coronary artery without angina pectoris; E78.5 Hyperlipidemia, unspecified; G47.33 Obstructive sleep apnea (adult) (pediatric); E83.52 Hypercalcemia; K21.9 Gastro-esophageal reflux disease without esophagitis; I95.9 Hypotension, unspecified; R11.2 Nausea with vomiting, unspecified; R26.9 Unspecified abnormalities of gait and mobility; M19.90 Unspecified osteoarthritis, unspecified site; Z79.01 Long term (current) use of anticoagulants; Z79.84 Long term (current) use of oral hypoglycemic drugs; Z79.02 Long term (current) use of antithrombotics/antiplatelets; Z79.85 Long-term (current) use of injectable non-insulin antidiabetic drugs; Z79.890 Hormone replacement therapy; Z79.899 Other long term (current) drug therapy; Z95.5 Presence of coronary angioplasty implant and graft; Z96.653 Presence of artificial knee joint, bilateral; Z95.0 Presence of cardiac pacemaker; M10.9 Gout, unspecified
CPT/HCPCS: 36415; 71046; 80048; 80053; 81001; 82306; 82652; 83036; 83605; 83615; 83735; 83880; 83970; 84145; 85025; 85610; 85730; 86140; 86334; 86335; 87077; 87086; 87186; 87636; 93005; 94640; 94760; 96361; 96365; 96366; 96375; 96376; 99291

== ENCOUNTER → 2024-06-26 | Outpatient (CLI) | payer MEDICARE ==
[2024-06-26 20:16] LABS: HCT 36.3 % (37.2-46.3); HGB 10.9 g/dL (12.0-15.0); MCH 26.2 pg (27.0-32.0); MCV 87.3 FL (80.0-97.0); Mean Platelet Volume 12.1 FL (9.5-12.2); NRBC Per 100 WBC 0 X 10*3/uL (0.00-0.01); Platelet Count 222 X 10*3/uL (140-440); RBC 4.16 X 10*6/uL (4.10-5.20); RDW 18.3 % (11.5-14.5); WBC 7.12 X 10*3/uL (4.50-10.00)
[2024-06-26 21:00] LABS: ALT 15 U/L (8-44); AST 18 U/L (13-35); Albumin 4.4 g/dL (3.8-4.9); Albumin/Globulin Ratio 1.76 Ratio (1.60-3.17); Alkaline Phosphatase 81 U/L (41-126); BUN/Creat Ratio 29.65 Ratio (12.00-20.00); Blood Urea Nitrogen 50.4 mg/dL (9.0-27.0); Calcium 9.8 mg/dL (8.7-10.3); Chloride 105 mmol/L (96-109); Chol/HDL Ratio 5.59 Ratio; Globulin 2.5 g/dL (1.6-3.3); Glucose 168 mg/dL (70-110); LDL Cholesterol,Calculated 161.7 mg/dL (0.0-131.0); Potassium 5.3 mmol/L (3.5-5.5); Sodium 141 mmol/L (135-145); Total Bilirubin <0.2 mg/dL (0.3-1.2); Total Protein 6.9 g/dL (6.2-8.2)
[2024-06-26 21:33] LABS: NT-Pro-B-Type Natriuretic Pept 408 pg/mL (0-125)
== END | disposition home or self-care (01) ==
LOC: LABWHC1 12:42
PROVIDERS: ATTEND Student in an Organized Health Care Education/Training Program
DX: I50.9 Heart failure, unspecified (principal); E11.9 Type 2 diabetes mellitus without complications; E78.5 Hyperlipidemia, unspecified; E03.9 Hypothyroidism, unspecified; D72.9 Disorder of white blood cells, unspecified; R79.89 Other specified abnormal findings of blood chemistry
CPT/HCPCS: 36415; 80053; 80061; 83036; 83880; 84443; 85027; 86141

== ENCOUNTER 2024-08-30 03:15 | Inpatient (IN) | payer MEDICARE ==
--- NOTE | 2024-08-30 03:23 | ED ---
Weakness HPI - General Stated complaint: fall Time Seen by Provider: 08/30/24 03:18 Source: RN notes reviewed, old records reviewed Mode of arrival: EMS Limitations: no limitations - History of Present Illness Initial comments: This is a 68-year-old female to the ER for evaluation. Patient is a mildly poor historian presenting for multiple falls. History of multiple ER visits surrounding similar complaints. Patient is brought in by EMS without significant current complaint of no headache no chest pain no shortness of breath no abdominal pain no recent nausea vomiting diarrhea or fevers. Patient coming in for debility weakness and failure to thrive MD Complaint: generalized weakness, lack of energy, difficulty walking -: days(s) Location: generalized Severity: moderate Severity scale (1-10): 7 Quality: tingling, aching Consistency: constant Improves with: none Worsens with: none Context: recent illness, history of similar Associated Symptoms: denies other symptoms, confusion - Related Data Home Medications Medication Instructions Recorded Confirmed Omeprazole 20 mg PO HS 06/04/16 04/29/24 Rivaroxaban [Xarelto] 20 mg PO W/SUPPER 06/04/16 04/29/24 allopurinoL [Zyloprim] 300 mg PO DAILY 06/04/16 04/29/24 Cholecalciferol [Vitamin D3 (25 25 mcg PO DAILY 09/03/22 04/29/24 Mcg = 1000 Iu)] oxyBUTYnin chloride [Ditropan] 5 mg PO DAILY 09/03/22 04/29/24 Pregabalin [Lyrica] 150 mg PO TID 11/17/22 04/29/24 Cetirizine HCl [Zyrtec] 10 mg PO DAILY 04/11/23 04/29/24 Empagliflozin [Jardiance] 10 mg PO DAILY 04/11/23 04/29/24 Ferrous Sulfate [Iron (65 MG 325 mg PO DAILY 04/11/23 04/29/24 Elemental)] HYDROcodone/APAP 10-325MG [[place] 1 tab PO QID 10/22/23 04/29/24 10-325] Insulin Aspart [NovoLOG Flexpen] 10 - 12 units SQ PC-TID 10/22/23 04/29/24 Amitriptyline HCl [Elavil] 10 mg PO HS 04/29/24 04/29/24 Atorvastatin [Lipitor] 40 mg PO HS 04/29/24 04/29/24 Azelastine HCl [Astelin Nasal 1 spray EA NOSTRIL BID 04/29/24 04/29/24 [place]] Clopidogrel [Plavix] 75 mg PO DAILY 04/29/24 04/29/24 Tirzepatide [Mounjaro] 10 mg SQ FR 04/29/24 04/29/24 Previous Rx's Medication Instructions Recorded Nitroglycerin Sl Tabs [Nitrostat] 0.4 mg SUBLINGUAL Q5M PRN #50 tab 03/09/23 Levothyroxine Sodium [Synthroid] 50 mcg PO DAILY@0630 30 Days #30 10/26/23 tab Tamsulosin [Flomax] 0.4 mg PO PC-BRKFST 30 Days #30 cap 10/26/23 Albuterol Inhaler [Ventolin Hfa 2 puff INHALATION QID PRN #1 each 05/04/24 Inhaler] Ascorbic Acid [Vitamin C] 500 mg PO BID tab 05/04/24 Zinc Sulfate [Orazinc] 220 mg PO DAILY #30 cap 05/04/24 guaiFENesin SYRUP 100MG/5ML 200 mg PO Q6HR PRN ml 05/04/24 [Robitussin] Amiodarone [Cordarone] 200 mg PO DIRECTED #35 tab 05/08/24 Metoprolol Tartrate [Lopressor] 75 mg PO BID #180 tab 05/08/24 Allergies Allergy/AdvReac Type Severity Reaction Status Date / Time No Known Allergies Allergy Verified 04/29/24 20:50 Review of Systems ROS Statement: Those systems with pertinent positive or pertinent negative responses have been documented in the HPI. ROS Other: All systems not noted in ROS Statement are negative. Past Medical History Past Medical History: Atrial Fibrillation, Asthma, Coronary Artery Disease (CAD), Diabetes Mellitus, GERD/Reflux, GI Bleed, Hyperlipidemia, Hypertension, Osteoarthritis (OA) Additional Past Medical History / Comment(s): See Dr Cabrales's H&P. see dr garcia's H & P, julianathwv with oxygen use, perm pacemaker History of Any Multi-Drug Resistant Organisms: None Reported Past Surgical History: Appendectomy, Section, Cholecystectomy, Heart Catheterization With Stent, Hysterectomy, Joint Replacement, Orthopedic Surgery Additional Past Surgical History / Comment(s): Bilateral carpal tunnel, bilateral total knee replacements, colonoscopy, EGD. thumb surgery x 2 Past Anesthesia/Blood Transfusion Reactions: Previous Problems w/ Anesthesia Additional Past Anesthesia/Blood Transfusion Reaction / Comment(s): Had spinal fluid leak w/ prior spinal for knee surgery-stated was told not to have spinals. No problems with blood transfusion received 30-40 yrs ago. Date of Last Stent Placement:: 2022 Past Psychological History: No Psychological Hx Reported Smoking Status: Never smoker Past Alcohol Use History: None Reported Past Drug Use History: None Reported - Past Family History Mother Family Medical History: No Reported History General Exam General appearance: alert, in no apparent distress Head exam: Present: atraumatic, normocephalic, normal inspection Eye exam: Present: normal appearance, PERRL, EOMI. Absent: scleral icterus, c onjunctival injection, periorbital swelling ENT exam: Present: normal exam, mucous membranes moist Neck exam: Present: normal inspection. Absent: tenderness, meningismus, lymphadenopathy Respiratory exam: Present: normal lung sounds bilaterally. Absent: respiratory distress, wheezes, rales, rhonchi, stridor Cardiovascular Exam: Present: regular rate, normal rhythm, normal heart sounds. Absent: systolic murmur, diastolic murmur, rubs, gallop, clicks GI/Abdominal exam: Present: soft, normal bowel sounds. Absent: distended, tenderness, guarding, rebound, rigid Extremities exam: Present: normal inspection, full ROM, normal capillary refill. Absent: tenderness, pedal edema, joint swelling, calf tenderness Back exam: Present: normal inspection Neurological exam: Present: alert, oriented X3, CN II-XII intact Psychiatric exam: Present: normal affect, normal mood Skin exam: Present: warm, dry, intact, normal color. Absent: rash Course Vital Signs 08/30/24 03:21 Temperature 97.5 F L Pulse Rate 76 Respiratory 18 Rate Blood Pressure 122/67 O2 Sat by Pulse 95 Oximetry - Reevaluation(s) Reevaluation #1: 08/30/24 05:30 Medical record was reviewed Reevaluation #2: 08/30/24 05:30 Symptoms unchanged Reevaluation #3: 08/30/24 05:30 Patient informed of results and questions answered Reevaluation #4: Was pt. sent in by a medical professional or institution (, PA, CLOTH PATTERN MAKER, urgent care, hospital, or fci...) When possible be specific @ -no Did you speak to anyone other than the patient for history (EMS, parent, family, police, friend...)? What history was obtained from this source @ -no Did you review nursing and triage notes (agree or disagree)? Why? @ -agree Are old charts reviewed (outside hosp., previous admission, EMS record, old EKG, old radiological studies, urgent care reports/EKG's, fci records)? Report findings @ -yes Differential Diagnosis (chest pain, altered mental status, abdominal pain women, abdominal pain men, vaginal bleeding, weakness, fever, dyspnea, syncope, headache, dizziness, GI bleed, back pain, seizure, CVA, palpatations, mental health, musculoskeletal)? @ -prior EKG interpreted by me (3pts min.). @ -yes X-rays interpreted by me (1pt min.). @ -yes negative for acute disease CT interpreted by me (1pt min.). @ -no U/S interpreted by me (1pt. min.). @ -no What testing was considered but not performed or refused? (CT, X-rays, U/S, labs)? Why? @ -none What meds were considered but not given or refused? Why? @ -none Did you discuss the management of the patient with other professionals (professionals i.e. , PA, CLOTH PATTERN MAKER, lab, RT, psych nurse, social staff worker, community health agent, teacher, water resources technical officer, therapeutic case manager)? Give summary @ -no Was smoking cessation discussed for >3mins.? @ -no Was critical care preformed (if so, how long)? @ -no Were there social determinants of health that impacted care today? How? (Homelessness, low income, unemployed, alcoholism, drug addiction, transportation, low edu. Level, literacy, decrease access to med. care, residential, rehab)? @ -none Was there de-escalation of care discussed even if they declined (Discuss DNR or withdrawal of care, Hospice)? DNR status @ -no What co-morbidities impacted this encounter? (DM, HTN, Smoking, COPD, CAD, Cancer, CVA, ARF, Chemo, Hep., AIDS, mental health diagnosis, sleep apnea, morbid obesity)? @ -none Was patient admitted / discharged? Hospital course, mention meds given and route, prescriptions, significant lab abnormalities, going to OR and other pertinent info. @ - Undiagnosed new problem with uncertain prognosis? @ -no Drug Therapy requiring intensive monitoring for toxicity (Heparin, Nitro, Insulin, Cardizem)? @ -no Were any procedures done? @ -no Diagnosis/symptom? @ - Acute, or Chronic, or Acute on Chronic? @ -Acute Uncomplicated (without systemic symptoms) or Complicated (systemic symptoms)? @ -Complicated Side effects of treatment? @ -no Exacerbation, Progression, or Severe Exacerbation? @ -exacerbation Poses a threat to life or bodily function? How? (Chest pain, USA, ID, pneumonia, PE, COPD, DKA, ARF, appy, cholecystitis, CVA, Diverticulitis, Homicidal, Suicidal, threat to staff... and all critical care pts) @ -yes Reevaluation #5: Differential Weakness: Hypoglycemia, shock, sepsis, hyponatremia, anemia, infection, ID, ETOH, adverse medicine reaction, overdose, stroke, this is not meant to be an all-inclusive list. - Consultations Consultation #1: Spoke with [facility] who agrees to admit this patient EKG Findings - EKG Comments: EKG Findings:: EKG is paced 69 MD 296 QRS 117 QTc 398 - EKG Results: EKG: interpreted by ERMD Medical Decision Making - Medical Decision Making 68 female with CKD dehydration hyperkalemia patient will admit for correcting of potassium nephrology evaluation - Lab Data Result diagrams: 08/30/24 03:32 08/30/24 03:32 Lab Results 08/30/24 08/30/24 08/30/24 Range/Units 03:32 03:32 03:32 WBC 3.9 (3.8-10.6) k/uL RBC 3.36 L (3.80-5.40) m/uL Hgb 9.3 L (11.4-16.0) gm/dL Hct 30.3 L (34.0-46.0) % MCV 90.1 (80.0-100.0) fL MCH 27.6 (25.0-35.0) pg MCHC 30.6 L (31.0-37.0) g/dL RDW 20.0 H (11.5-15.5) % Plt Count 172 (150-450) k/uL MPV 9.6 Neutrophils % 68 % Lymphocytes % 18 % Monocytes % 7 % Eosinophils % 5 % Basophils % 0 % Neutrophils # 2.6 (1.3-7.7) k/uL Lymphocytes # 0.7 L (1.0-4.8) k/uL Monocytes # 0.3 (0-1.0) k/uL Eosinophils # 0.2 (0-0.7) k/uL Basophils # 0.0 (0-0.2) k/uL Hypochromasia Moderate Anisocytosis Moderate PT 15.4 H (10.0-12.5) sec INR 1.5 H (<1.2) APTT 32.1 H (22.0-30.0) sec Sodium 135 L (137-145) mmol/L Potassium 6.8 H* (3.5-5.1) mmol/L Chloride 104 (98-107) mmol/L Carbon Dioxide 17 L (22-30) mmol/L Anion Gap 14 mmol/L BUN 100 H (7-17) mg/dL Creatinine 3.85 H (0.52-1.04) mg/dL Est GFR (CKD-EPI)AfAm 13 (>60 ml/min/1.73 sqM) Est GFR (CKD-EPI)NonAf 11 (>60 ml/min/1.73 sqM) Glucose 135 H (74-99) mg/dL Plasma Lactic Acid [place] (0.7-2.0) mmol/L Calcium 9.5 (8.4-10.2) mg/dL Phosphorus 5.7 H (2.5-4.5) mg/dL Magnesium 1.7 (1.6-2.3) mg/dL Total Bilirubin 0.7 (0.2-1.3) mg/dL AST 36 (14-36) U/L ALT 24 (4-34) U/L Alkaline Phosphatase 90 (38-126) U/L Troponin I (0.000-0.034) ng/mL Total Protein 7.2 (6.3-8.2) g/dL Albumin 4.3 (3.5-5.0) g/dL TSH 78.800 H (0.465-4.680) mIU/L 08/30/24 08/30/24 Range/Units 03:32 03:32 WBC (3.8-10.6) k/uL RBC (3.80-5.40) m/uL Hgb (11.4-16.0) gm/dL Hct (34.0-46.0) % MCV (80.0-100.0) fL MCH (25.0-35.0) pg MCHC (31.0-37.0) g/dL RDW (11.5-15.5) % Plt Count (150-450) k/uL MPV Neutrophils % % Lymphocytes % % Monocytes % % Eosinophils % % Basophils % % Neutrophils # (1.3-7.7) k/uL Lymphocytes # (1.0-4.8) k/uL Monocytes # (0-1.0) k/uL Eosinophils # (0-0.7) k/uL Basophils # (0-0.2) k/uL Hypochromasia Anisocytosis PT (10.0-12.5) sec INR (<1.2) APTT (22.0-30.0) sec Sodium (137-145) mmol/L Potassium (3.5-5.1) mmol/L Chloride (98-107) mmol/L Carbon Dioxide (22-30) mmol/L Anion Gap mmol/L BUN (7-17) mg/dL Creatinine (0.52-1.04) mg/dL Est GFR (CKD-EPI)AfAm (>60 ml/min/1.73 sqM) Est GFR (CKD-EPI)NonAf (>60 ml/min/1.73 sqM) Glucose (74-99) mg/dL Plasma Lactic Acid [place] 1.4 (0.7-2.0) mmol/L Calcium (8.4-10.2) mg/dL Phosphorus (2.5-4.5) mg/dL Magnesium (1.6-2.3) mg/dL Total Bilirubin (0.2-1.3) mg/dL AST (14-36) U/L ALT (4-34) U/L Alkaline Phosphatase (38-126) U/L Troponin I <0.012 (0.000-0.034) ng/mL Total Protein (6.3-8.2) g/dL Albumin (3.5-5.0) g/dL TSH (0.465-4.680) mIU/L Critical Care Time Critical Care Time: Yes Total Critical Care Time: 31 Disposition Clinical Impression: JL (acute kidney injury), Dehydration, CKD (chronic kidney disease), Hyperkalemia Disposition: ADMITTED IP TO THIS [facility] Condition: Serious Is patient prescribed a controlled substance at d/c from ED?: No Time of Disposition: 17:30
[2024-08-30] MEDS: SODIUM CHLORIDE 0.9% 1,000 ML IV ONE (03:35)
[2024-08-30 03:46] LABS: Anisocytosis Moderate; Basophils % (A) 0 %; Eosinophils # (A) 0.2 k/uL (0-0.7); Eosinophils % (A) 5 %; HCT 30.3 % (34.0-46.0); HGB 9.3 gm/dL (11.4-16.0); Hypochromasia Moderate; Lymphocytes # (A) 0.7 k/uL (1.0-4.8); Lymphocytes % (A) 18 %; MCH 27.6 pg (25.0-35.0); MCHC 30.6 g/dL (31.0-37.0); MCV 90.1 fL (80.0-100.0); Mean Platelet Volume 9.6; Monocytes # (A) 0.3 k/uL (0-1.0); Monocytes % (A) 7 %; Neutrophils # (A) 2.6 k/uL (1.3-7.7); Neutrophils % (A) 68 %; Platelet Count 172 k/uL (150-450); RBC 3.36 m/uL (3.80-5.40); WBC 3.9 k/uL (3.8-10.6)
[2024-08-30 04:13] LABS: INR 1.5 (<1.2); Partial Thromboplastin Time 32.1 sec (22.0-30.0); Prothrombin Time 15.4 sec (10.0-12.5)
[2024-08-30 04:45] LABS: ALT 24 U/L (4-34); AST 36 U/L (14-36); African American GFR (CKD) 13 (>60 ml/min/1.73 sqM); Albumin 4.3 g/dL (3.5-5.0); Alkaline Phosphatase 90 U/L (38-126); Anion Gap 14 mmol/L; Blood Urea Nitrogen 100 mg/dL (7-17); Calcium 9.5 mg/dL (8.4-10.2); Carbon Dioxide 17 mmol/L (22-30); Chloride 104 mmol/L (98-107); Glucose 135 mg/dL (74-99); Magnesium 1.7 mg/dL (1.6-2.3); Non-African American GFR(CKD) 11 (>60 ml/min/1.73 sqM); Phosphorus 5.7 mg/dL (2.5-4.5); Sodium 135 mmol/L (137-145); Total Bilirubin 0.7 mg/dL (0.2-1.3); Total Protein 7.2 g/dL (6.3-8.2)
[2024-08-30 04:57] LABS: Potassium 6.8 mmol/L (3.5-5.1)
[2024-08-30] MEDS ORDERED: NALOXONE 0.4 MG/ML 1 ML VIAL IV PRN (05:26)
[2024-08-30] MEDS ORDERED: ONDANSETRON 4 MG/2 ML VIAL IVP PRN (05:26)
[2024-08-30] MEDS: CALCIUM GLUCONATE IN NACL 1 GM in SALINE 1 100ML.BAG IVPB ONE (05:37)
[2024-08-30] MEDS: SODIUM CHLORIDE 0.9% 1,000 ML IV SCH (06:10)
[2024-08-30] MEDS: DEXTROSE 50% SYRINGE 50 ML IVP STA ×2 (06:11→19:30)
[2024-08-30] MEDS: INSULIN REGULAR 100 UNIT/ML VIAL (IV) IV ONE ×2 (06:11→19:28)
[2024-08-30] MEDS: SODIUM BICARB 8.4% 50 ML SYR (1 MEQ/ML) IV STA (06:11)
[2024-08-30] MEDS: SODIUM ZIRCONIUM CYCLOSILICATE 10 GM PACKET PO ONE (06:27)
[2024-08-30] MEDS: PANTOPRAZOLE 40 MG/10 ML VIAL IV SCH (09:31)
--- NOTE | 2024-08-30 13:31 | P.NPCON ---
History of Present Illness - Reason for Consult Consult date: 08/30/24 - Chief Complaint weakness - History of Present Illness 68-year-old female with PMHx of Atrial Fibrillation, Asthma, Coronary Artery Disease (CAD), Diabetes Mellitus, GERD/Reflux, GI Bleed, Hyperlipidemia, Hypertension, Osteoarthritis (OA) presnted to the ED with recurrent falls. , c/o generalized weakness, lack of energy, difficulty walking of few days duration, nephrology is consulted for JL , creatinine on presentation is 3.8, last cr. in June 2024 was 1.7, potassium is 6.8, she was treated medically with D50%, Insulin, calcium gluconate, sodium bicarb and Lokelma , she is not making urine, bladder scan showed 400-500 ml urine. she recieved 1 L N/S bolus and started on maintainance @ 130 ml/hr Review of Systems as mention in HPI Past Medical History Past Medical History: Atrial Fibrillation, Asthma, Coronary Artery Disease (CAD), Diabetes Mellitus, GERD/Reflux, GI Bleed, Hyperlipidemia, Hypertension, Osteoarthritis (OA) Additional Past Medical History / Comment(s): See Dr Cabrales's H&P. see dr garcia's H & P, [facility] with oxygen use, perm pacemaker History of Any Multi-Drug Resistant Organisms: None Reported Past Surgical History: Appendectomy, Section, Cholecystectomy, Heart Catheterization With Stent, Hysterectomy, Joint Replacement, Orthopedic Surgery Additional Past Surgical History / Comment(s): Bilateral carpal tunnel, bilateral total knee replacements, colonoscopy, EGD. thumb surgery x 2 Past Anesthesia/Blood Transfusion Reactions: Previous Problems w/ Anesthesia Additional Past Anesthesia/Blood Transfusion Reaction / Comment(s): Had spinal fluid leak w/ prior spinal for knee surgery-stated was told not to have spinals. No problems with blood transfusion received 30-40 yrs ago. Date of Last Stent Placement:: 2022 Past Psychological History: No Psychological Hx Reported Smoking Status: Never smoker Past Alcohol Use History: None Reported Past Drug Use History: None Reported - Past Family History Mother Family Medical History: No Reported History Medications and Allergies Home Medications Medication Instructions Recorded Confirmed Type Omeprazole 20 mg PO HS 06/04/16 08/30/24 History Rivaroxaban [Xarelto] 20 mg PO W/SUPPER 06/04/16 08/30/24 History allopurinoL [Zyloprim] 300 mg PO DAILY 06/04/16 08/30/24 History Cholecalciferol [Vitamin D3 (25 25 mcg PO DAILY 09/03/22 08/30/24 History Mcg = 1000 Iu)] oxyBUTYnin chloride [Ditropan] 5 mg PO DAILY 09/03/22 08/30/24 History Pregabalin [Lyrica] 150 mg PO TID 11/17/22 08/30/24 History Cetirizine HCl [Zyrtec] 10 mg PO DAILY 04/11/23 08/30/24 History Empagliflozin [Jardiance] 10 mg PO DAILY 04/11/23 08/30/24 History Ferrous Sulfate [Iron (65 MG 325 mg PO DAILY 04/11/23 08/30/24 History Elemental)] HYDROcodone/APAP 10-325MG [[place] 1 tab PO QID 10/22/23 08/30/24 History 10-325] Insulin Aspart [NovoLOG Flexpen] See Protocol SQ AC-TID 10/22/23 08/30/24 History Levothyroxine Sodium [Synthroid] 50 mcg PO DAILY@0630 30 Days #30 10/26/23 08/30/24 Rx tab Tamsulosin [Flomax] 0.4 mg PO PC-BRKFST 30 Days #30 cap 10/26/23 08/30/24 Rx Amitriptyline HCl [Elavil] 10 mg PO HS 04/29/24 08/30/24 History Atorvastatin [Lipitor] 40 mg PO HS 04/29/24 08/30/24 History Azelastine HCl [Astelin Nasal 1 spr EA NOSTRIL BID 04/29/24 08/30/24 History [place]] Clopidogrel [Plavix] 75 mg PO DAILY 04/29/24 08/30/24 History Ascorbic Acid [Vitamin C] 500 mg PO BID tab 05/04/24 08/30/24 Rx Zinc Sulfate [Orazinc] 220 mg PO DAILY #30 cap 05/04/24 08/30/24 Rx guaiFENesin SYRUP 100MG/5ML 200 mg PO Q6HR PRN ml 05/04/24 08/30/24 Rx [Robitussin] Albuterol Inhaler [Ventolin Hfa 2 puff INHALATION RT-QID PRN 08/30/24 08/30/24 History Inhaler] Amiodarone [Cordarone] 200 mg PO DAILY 08/30/24 08/30/24 History Aspirin EC [Ecotrin Low Dose] 81 mg PO DAILY 08/30/24 08/30/24 History Escitalopram [Lexapro] 10 mg PO DAILY 08/30/24 08/30/24 History Losartan/Hydrochlorothiazide 1 tab PO DAILY 08/30/24 08/30/24 History [Hyzaar 100-25 Tablet] Metoprolol Succinate (ER) [Toprol 50 mg PO DAILY 08/30/24 08/30/24 History Xl] Nitroglycerin Sl Tabs [Nitrostat] 0.4 mg SL Q5M PRN 08/30/24 08/30/24 History Spironolactone [Aldactone] 25 mg PO DAILY 08/30/24 08/30/24 History Tirzepatide [Mounjaro] 12.5 mg SQ FR 08/30/24 08/30/24 History Torsemide [Demadex] 10 mg PO DAILY 08/30/24 08/30/24 History metFORMIN HCL 1,000 mg PO BID 08/30/24 08/30/24 History Allergies Allergy/AdvReac Type Severity Reaction Status Date / Time No Known Allergies Allergy Verified 08/30/24 10:04 Physical Exam Vitals: Vital Signs Temp Pulse Resp BP Pulse Ox 08/30/24 12:40 97.7 F 64 20 120/56 96 08/30/24 09:33 97.3 F L 60 16 107/59 96 08/30/24 08:25 16 08/30/24 07:45 61 17 08/30/24 06:00 73 16 115/54 98 08/30/24 03:21 97.5 F L 76 18 122/67 95 Intake and Output 08/29/24 08/30/24 08/30/24 21:59 06:59 14:59 Other: Weight Patient is awake, no acute distress. multiple bruises on shoulders and LE Heart: S1 and S2 heard Lungs: clear to auscultation bilaterally Abdomen: Soft and nontender Lower extremities: Trace edema [employer]: grossly intact Results - Lab Results Most recent lab results Calcium 9.5 mg/dL (8.4-10.2) 08/30/24 03:32 Phosphorus 5.7 mg/dL (2.5-4.5) H 08/30/24 03:32 Magnesium 1.7 mg/dL (1.6-2.3) 08/30/24 03:32 08/30/24 03:32 08/30/24 03:32 Assessment and Plan Assessment: # Acute kidney injury is likely prerenal versus ATN, + urine retention, cr. 3.8, last creatinine in 06/2024 was 1.7 # Hyperkalemia due to JL # metabolic acidosis due to JL/ CKD # hyponatremia, likely due to hypovolemia # Recurrent falls, generalized weakness Plan: -no indication for renal replacement therapy at this time -check UA and US kidneys/bladder -insert Roque's catheter , monitor UO -check CK level -continue IVF for 24 hours -encouraged PO hydration -start sodium bicarbonate 650 mg BID -medical management of hyperkalemia, check K post medical management -daily renal panel -PT/OT
[2024-08-30] MEDS: SODIUM BICARBONATE TAB 650 MG TAB PO SCH (13:43)
[2024-08-30] MEDS ORDERED: guaiFENesin SYRUP 100MG/5ML 200 MG/10 ML CUP PO PRN (14:28)
--- NOTE | 2024-08-30 14:39 | US ---
EXAMINATION TYPE: US kidneys/renal and bladder DATE OF EXAM: 08/30/2024 COMPARISON: 10/24/23 US CLINICAL INDICATION: Female, 68 years old with history of JL; JL TECHNIQUE: Grayscale imaging of the bilateral kidneys and urinary bladder: FINDINGS: EXAM MEASUREMENTS: Right Kidney: Increased renal echogenicity. 12.5x4.9x5.2 cm Left Kidney: Increased vertical echogenicity. Overall, not well visualized given extensive shadowing bowel gas. Right Kidney: No hydronephrosis or masses seen Left Kidney: No hydronephrosis or masses seen at visualized portions Bladder: wnl There is no evidence for hydronephrosis at this point in time. No nephrolithiasis is seen. No anthony s are identified. The urinary bladder is anechoic. exam very limited by large body habitus and overlying bowel gas IMPRESSION: 1. No evidence of acute obstructive uropathy within the limitations described above. 2. Visualized portions of the bilateral kidneys demonstrate increased parenchymal echogenicity and r enal cortical thinning suggesting underlying medical renal disease. [facility], , 08/30/2024 2:37 PM
[2024-08-30 15:01] LABS: Appearance,Urine Clear (Clear); Bacteria,Urine Many /hpf; Bilirubin,Urine Negative (Negative); Blood,Urine Negative (Negative); Color,Urine Light Yellow; Glucose,Urine (UA) Trace (Negative); Hyaline Casts,Urine 1 /lpf (0-2); Ketones,Urine Negative (Negative); Leukocyte Esterase,Urine Small (Negative); Mucus,Urine Rare /hpf; Nitrite,Urine Positive (Negative); Protein,Urine Negative (Negative); RBC,Urine <1 /hpf (0-5); Specific Gravity,Urine 1.015 (1.001-1.035); Squamous Epithelial Cell,Urine <1 /hpf (0-4); Urobilinogen,Urine <2.0 mg/dL (<2.0); WBC,Urine 4 /hpf (0-5)
--- NOTE | 2024-08-30 15:02 | XR ---
EXAMINATION TYPE: XR chest 1V portable DATE OF EXAM: 08/30/2024 2:56 PM COMPARISON: Multiple prior chest radiograph, most recently dated 12/28/2023. CLINICAL INDICATION: Female, 68 years old with history of chf; [facility] TECHNIQUE: XR chest 1V portable Frontal view of the chest. FINDINGS: Lungs/Pleura: There is no evidence of pleural effusion, focal consolidation, or pneumothorax. Pulmonary vascularity: Mild pulmonary vascular congestion. Heart/mediastinum: Cardiomegaly. Musculoskeletal: No acute osseous pathology. Other findings: None Lines/Tubes: Left chest wall cardiac pacemaker device with leads overlying the region of the right atrium and righ t ventricle. IMPRESSION: Cardiomegaly and mild pulmonary vascular congestive changes. [facility], , 08/30/2024 3:00 PM
[2024-08-30 16:49] LABS: African American GFR (CKD) 14 (>60 ml/min/1.73 sqM); Anion Gap 10 mmol/L; Blood Urea Nitrogen 98 mg/dL (7-17); Calcium 8.9 mg/dL (8.4-10.2); Carbon Dioxide 21 mmol/L (22-30); Chloride 108 mmol/L (98-107); Creatine Kinase 268 U/L (30-135); Glucose 94 mg/dL (74-99); Non-African American GFR(CKD) 12 (>60 ml/min/1.73 sqM); Sodium 139 mmol/L (137-145)
--- NOTE | 2024-08-30 17:04 | CT ---
EXAMINATION TYPE: CT brain wo con DATE OF EXAM: 08/30/2024 4:54 PM COMPARISON: Prior CT head studies, most recently of 11/20/2023. CLINICAL INDICATION: Female, 68 years old with history of stroke, AMS and falls TECHNIQUE: Brain: Axial CT images of the brain were obtained with coronal and sagittal reformats created and rev iewed. Contrast used: None. Oral contrast used: None. CT DLP: 1187.4 mGycm, Automated exposure control for dose reduction was used. FINDINGS: Brain: Extra-axial spaces: No abnormal extra-axial fluid collections. Ventricular system: Dilatation in proportion to cerebral atrophy. Cerebral parenchyma: No acute intraparenchymal hemorrhage or mass effect. The mead-white junction is well differentiated. Scattered hypoattenuating areas are seen within the white matter. Cerebellum: Unremarkable. Mass effect: No evidence of midline shift. Intracranial vasculature: unremarkable Soft tissues: Normal. Calvarium/osseous structures: No depressed skull fracture. Paranasal sinuses and mastoid air cells: Mild scattered paranasal sinus disease. Visualized orbits: Orbital contents are intact. IMPRESSION: No acute intracranial process. [facility], , 08/30/2024 5:02 PM
[2024-08-30 17:05] LABS: Potassium 6.5 mmol/L (3.5-5.1)
[2024-08-30] MEDS: FUROSEMIDE 10 MG/ML 4 ML VIAL IV STA (19:30)
[2024-08-30 22:13] LABS: Glucose,Whole Blood 97 mg/dL (70-110)
[2024-08-30] MEDS: AMITRIPTYLINE HCL 10 MG TAB PO SCH (22:35)
[2024-08-30] MEDS: AZELASTINE 137MCG/SPRAY EA NOSTRIL SCH (22:35)
[2024-08-30] MEDS: MORPHINE SULFATE 4 MG/ML SYRINGE IV PRN (22:36)
[2024-08-30] MEDS: PANTOPRAZOLE 40 MG TABLET PO SCH (22:36)
--- NOTE | 2024-08-30 22:41 | HP ---
HISTORY AND PHYSICAL CHIEF COMPLAINT: Multiple falls and hyperkalemia. HISTORY OF PRESENT ILLNESS: This is a 68-year-old woman with a past history of multiple problems, who was living with boyfriend. Apparently, the patient was falling on multiple occasions and complains of generalized weakness. The patient has significant multiple bruises in the right shoulder and chest areas. The potassium was elevated at 6.8. The patient was given 50% dextrose insulin, calcium gluconate, and sodium bicarb and Lokelma. Nephrology is also following the patient closely. PAST MEDICAL HISTORY: Reviewed and includes atrial fibrillation and asthma. Rest of the history and rest of the chart is also reviewed. HOME MEDICATIONS: Reviewed and include Ditropan. Dose and rest of medications reviewed. ALLERGIES: None. FAMILY HISTORY: No history of heart disease or stroke in the family. SOCIAL HISTORY: No history of smoking or alcohol. REVIEW OF SYSTEMS: Fourteen-point review of systems negative except as mentioned earlier. PHYSICAL EXAMINATION: VITAL SIGNS: Pulse is 60, blood pressure 107/59, respirations 16, HEENT: Conjunctivae normal. NECK: No JVD. CARDIOVASCULAR: S1, S2. RESPIRATIONS: Breath sounds diminished at the bases. A few rhonchi. ABDOMEN: Soft and nontender. LEGS: No edema. NERVOUS SYSTEM: Diffusely weak. SKIN: Significant ecchymosis as mentioned earlier. LABORATORY DATA: Potassium 6.8, sodium 135, creatinine 3.85. ASSESSMENT: 1. Acute on chronic renal failure with severe hyperkalemia. 2. Falls and multiple ecchymosis. 3. Hypothyroidism. 4. Anemia. 5. Morbid obesity. 6. Gait dysfunction. 7. Atrial fibrillation. 8. Diabetes mellitus type 2. 9. Hypertension. 10.Hyperlipidemia. 11.Multiple complex medical issues. RECOMMENDATIONS AND DISCUSSION: This 68-year-old woman presented with multiple complex medical issues. We will monitor the patient closely. Insulin glucose regimen was given. I would recommend to monitor the potassium closely; monitor renal functions closely. IV fluids per Nephrology. PT/OT evaluation and possible ECF rehab. I would also recommend the CK to rule out the possibility of rhabdomyolysis. Otherwise, repeat labs will be ordered. Home medications will be continued. Avoid nephrotoxic medications. Prognosis is guarded because of multiple complex medical issues. Further recommendations to follow. See orders for details. MMODL / IJN: [id number] /
[2024-08-31 00:33] LABS: African American GFR (CKD) 15 (>60 ml/min/1.73 sqM); Anion Gap 11 mmol/L; Blood Urea Nitrogen 98 mg/dL (7-17); Calcium 8.6 mg/dL (8.4-10.2); Carbon Dioxide 21 mmol/L (22-30); Chloride 108 mmol/L (98-107); Glucose 87 mg/dL (74-99); Non-African American GFR(CKD) 13 (>60 ml/min/1.73 sqM); Sodium 140 mmol/L (137-145)
[2024-08-31 00:35] LABS: Potassium 6.2 mmol/L (3.5-5.1)
[2024-08-31] MEDS: DEXTROSE 5% IN WATER 1,000 ML with SODIUM BICARB (1 MEQ/ML) 150 ML IV SCH (01:44)
[2024-08-31] MEDS: SODIUM ZIRCONIUM CYCLOSILICATE 10 GM PACKET PO ONE (01:45)
[2024-08-31] MEDS: INSULIN REGULAR 100 UNIT/ML VIAL (IV) IV ONE (01:45)
[2024-08-31] MEDS: DEXTROSE 50% SYRINGE 50 ML IVP STA (01:45)
[2024-08-31 06:11] LABS: Glucose,Whole Blood 131 mg/dL (70-110)
[2024-08-31] MEDS: LEVOTHYROXINE 50 MCG TAB PO SCH (06:29)
[2024-08-31 08:22] LABS: ALT 24 U/L (4-34); AST 35 U/L (14-36); African American GFR (CKD) 18 (>60 ml/min/1.73 sqM); Albumin 3.4 g/dL (3.5-5.0); Alkaline Phosphatase 75 U/L (38-126); Anion Gap 8 mmol/L; Blood Urea Nitrogen 94 mg/dL (7-17); Calcium 8.5 mg/dL (8.4-10.2); Carbon Dioxide 24 mmol/L (22-30); Chloride 107 mmol/L (98-107); Creatine Kinase 205 U/L (30-135); Glucose 99 mg/dL (74-99); Magnesium 1.6 mg/dL (1.6-2.3); Non-African American GFR(CKD) 16 (>60 ml/min/1.73 sqM); Phosphorus 4.5 mg/dL (2.5-4.5); Sodium 139 mmol/L (137-145); Total Bilirubin 0.7 mg/dL (0.2-1.3); Total Protein 5.7 g/dL (6.3-8.2)
[2024-08-31 08:29] LABS: Anisocytosis Slight; Basophils % (A) 0 %; Eosinophils # (A) 0.2 k/uL (0-0.7); Eosinophils % (A) 5 %; HCT 27.4 % (34.0-46.0); HGB 8.2 gm/dL (11.4-16.0); Hypochromasia Marked; Lymphocytes # (A) 0.6 k/uL (1.0-4.8); Lymphocytes % (A) 18 %; MCH 27.9 pg (25.0-35.0); MCHC 29.8 g/dL (31.0-37.0); MCV 93.5 fL (80.0-100.0); Macrocytosis Slight; Mean Platelet Volume 9.1; Monocytes # (A) 0.3 k/uL (0-1.0); Monocytes % (A) 9 %; Neutrophils # (A) 2.3 k/uL (1.3-7.7); Neutrophils % (A) 66 %; Platelet Count 142 k/uL (150-450); RBC 2.93 m/uL (3.80-5.40); RDW 19.8 % (11.5-15.5); WBC 3.4 k/uL (3.8-10.6)
[2024-08-31] MEDS: CLOPIDOGREL 75 MG TAB PO SCH (08:32)
[2024-08-31] MEDS: TAMSULOSIN 0.4 MG CAP.ER.24H PO SCH (08:32)
[2024-08-31] MEDS: CHOLECALCIFEROL 25 MCG (1000 IU) TABLET PO SCH (08:32)
[2024-08-31] MEDS: oxyBUTYnin chloride 5 MG TAB PO SCH (08:32)
[2024-08-31] MEDS: allopurinoL 300 MG TAB PO SCH (08:32)
[2024-08-31] MEDS: ZINC SULFATE 220 MG CAP PO SCH (08:32)
[2024-08-31] MEDS: FERROUS SULFATE 325 MG TAB PO SCH (08:32)
[2024-08-31] MEDS: METOPROLOL SUCCINATE (ER) 50 MG TAB.ER.24H PO SCH (08:32)
--- NOTE | 2024-08-31 11:03 | P.PN ---
Subjective Patient is seen in follow-up for acute kidney injury. Renal function improving. Potassium 6.0 this morning. Has a Roque catheter for urinary retention. Oral intake is good. No active complaints. On bicarb drip. Acidosis improved. Vital signs are stable. General: No acute distress. HEENT: Head exam is unremarkable. LUNGS: No audible rhonchi or wheezes. HEART: Rate and Rhythm are regular. ABDOMEN: Nontender. EXTREMITITES: No edema. Objective - Vital Signs Vital signs: Vital Signs Temp 97.9 F 08/31/24 08:00 Pulse 63 08/31/24 08:00 Resp 18 08/31/24 08:00 BP 102/44 08/31/24 08:00 Pulse Ox 95 08/31/24 08:00 FiO2 Intake & Output 08/30/24 08/31/24 08/31/24 18:59 06:59 18:59 Intake Total 1260 118 Output Total 1000 Balance 260 118 Weight 123 kg Intake: Intake, IV Titration 780 Amount Dextrose 5% in Water 1, 780 000 ml @ 130 mls/hr IV . Q8H51M RAFFI with Sodium Bicarb (1 Meq/ml) 150 ml Rx#:[id number] Oral 480 118 Output: Urine 1000 Other: Voiding Method Indwelling Catheter - Labs CBC & Chem 7: 08/31/24 07:31 08/31/24 07:31 Labs: Abnormal Lab Results - Last 24 Hours (Table) 08/30/24 08/30/24 08/30/24 Range/Units 14:43 15:50 23:24 WBC (3.8-10.6) k/uL RBC (3.80-5.40) m/uL Hgb (11.4-16.0) gm/dL Hct (34.0-46.0) % MCHC (31.0-37.0) g/dL RDW (11.5-15.5) % Plt Count (150-450) k/uL Lymphocytes # (1.0-4.8) k/uL Potassium 6.5 H* 6.2 H* (3.5-5.1) mmol/L Chloride 108 H 108 H (98-107) mmol/L Carbon Dioxide 21 L 21 L (22-30) mmol/L BUN 98 H 98 H (7-17) mg/dL Creatinine 3.64 H 3.32 H (0.52-1.04) mg/dL POC Glucose (mg/dL) (70-110) mg/dL Creatine Kinase 268 H (30-135) U/L Total Protein (6.3-8.2) g/dL Albumin (3.5-5.0) g/dL Urine Glucose (UA) Trace H (Negative) Urine Nitrite Positive H (Negative) Ur Leukocyte Esterase Small H (Negative) Urine Bacteria Many H (None) /hpf Urine Mucus Rare H (None) /hpf 08/31/24 08/31/24 08/31/24 Range/Units 06:10 07:31 07:31 WBC 3.4 L (3.8-10.6) k/uL RBC 2.93 L (3.80-5.40) m/uL Hgb 8.2 L (11.4-16.0) gm/dL Hct 27.4 L (34.0-46.0) % MCHC 29.8 L (31.0-37.0) g/dL RDW 19.8 H (11.5-15.5) % Plt Count 142 L (150-450) k/uL Lymphocytes # 0.6 L (1.0-4.8) k/uL Potassium 6.0 H (3.5-5.1) mmol/L Chloride (98-107) mmol/L Carbon Dioxide (22-30) mmol/L BUN 94 H (7-17) mg/dL Creatinine 2.89 H (0.52-1.04) mg/dL POC Glucose (mg/dL) 131 H (70-110) mg/dL Creatine Kinase 205 H (30-135) U/L Total Protein 5.7 L (6.3-8.2) g/dL Albumin 3.4 L (3.5-5.0) g/dL Urine Glucose (UA) (Negative) Urine Nitrite (Negative) Ur Leukocyte Esterase (Negative) Urine Bacteria (None) /hpf Urine Mucus (None) /hpf Assessment and Plan Plan: Assessment: 1. Acute kidney injury secondary to vasomotor nephropathy with component of urinary retention. Creatinine 3.85 on admission and is 2.89 today. 2. Chronic kidney disease stage IIIa with baseline creatinine 1.1-1.3 secondary to nephrosclerosis. 3. Urinary retention. Has Roque catheter. On Flomax. 4. Hyperkalemia secondary to acute kidney injury, acidosis, urinary retention. Was also on Aldactone and losartan outpatient. 5. Diabetes mellitus. Plan: Stop bicarb drip. Start normal saline at 75 cc an hour. Add scheduled Lokelma. 20 mg IV Lasix once today. 1 g IV calcium gluconate. Repeat potassium level this afternoon. Continue to hold losartan and Aldactone. Check a.m. cortisol level. Avoid nephrotoxins. Continue to monitor renal function and urine output.
[2024-08-31 11:22] LABS: Glucose,Whole Blood 193 mg/dL (70-110)
[2024-08-31] MEDS: SODIUM ZIRCONIUM CYCLOSILICATE 10 GM PACKET PO SCH (12:04)
[2024-08-31] MEDS: FUROSEMIDE 10 MG/ML 2 ML VIAL IV ONE (12:04)
[2024-08-31] MEDS: SODIUM CHLORIDE 0.9% 1,000 ML IV SCH (12:04)
--- NOTE | 2024-08-31 15:10 | P.CRDCN ---
History of Present Illness Consult date: 08/31/24 Consult reason: atrial fibrillation History of present illness: This is a 68-year-old female patient of Dr. Cabrales with past medical history of persistent atrial fibrillation status post cardioversion in March 2023, failed amiodarone status post PVI in October 2023 with relapse to atrial fibrillation, currently paroxysmal, dilated cardiomyopathy with EF of 40 to 45%, heart failure with reduced ejection fraction, and YH a class III, CAD status post PCI to the LAD with WILDA with residual severe diagonal 1 disease which is small vessel, hypothyroidism, morbid obesity, diabetes mellitus type 2 insulin requiring, chronic anemia, obstructive sleep apnea not using CPAP. We have been asked to evaluate the patient for atrial fibrillation Patient gives history that she had had multiple falls at home including 2 this week. She states she starts feeling jittery and her body starts shaking and then she cannot support herself with her legs and she falls to the ground. She denies syncopal episodes. Patient denies chest pain, shortness of breath, no palpitations. No lightheadedness or dizziness. Blood pressure 102/44, heart rate 60s, pulse ox 95% on room air. -EKG: Poor quality EKG most likely from patient's tremors but appears to be paced rhythm with atrial fibrillation with controlled ventricular rate -Chest x-ray: Cardiomegaly and mild pulmonary vascular congestion. -Laboratory studies: WBC 3.4, hemoglobin 8.2, platelet count 142. Initial potassium 6.2 and is now 6, BUN was 98 now 94, creatinine 3.32 now 2.89. TSH 78.8. -Home cardiac medications: Amiodarone 200 mg daily, aspirin 81 mg daily, atorvastatin 40 mg at bedtime, Plavix 75 mg daily, Jardiance 10 mg daily, losartan/hydrochlorothiazide 100-25 mg daily, metoprolol succinate 50 mg daily, Nitrostat as needed, Xarelto 20 mg with supper, spironolactone 25 mg daily, Demadex 10 mg daily. -Lexiscan Cardiolite stress test performed 01/2024: Large area of remote insult anterior wall. No evidence of reversible ischemia. -Echocardiogram 10/22/2023: Technically difficult study with EF 45 to 50%. -Dual-chamber permanent pacemaker Medtronic implantation 11/25/2023 -Cardiac catheterization performed 03/08/2023 revealed significant obstructive disease in the LAD Status post successful stenting of the mid LAD. Review Of Systems: At the time of my exam: CONSTITUTIONAL: Denies fever or chills. HEENT: Denies blurred vision, vision changes, or eye pain. Denies hemoptysis CARDIOVASCULAR: Denies chest pain. Denies orthopnea. Denies PND. Denies palpitations RESPIRATORY: Denies shortness of breath. GASTROINTESTINAL: Denies abdominal pain. Denies nausea or vomiting. HEMATOLOGIC: Denies bleeding disorders. GENITOURINARY: Denies any blood in urine. SKIN: Denies puritis. Denies rash. Physical examination: Gen: This is 68-year-old female in no acute distress VS: reviewed HEENT: Head is atraumatic, normocephalic. Pupils equal, round. Sclerae is anicteric. NECK: Supple. No JVD. LUNGS: Clear to auscultation. No wheezes or rhonchi. No intercostal retractions. HEART: Irregular rate and rhythm. No murmur. ABDOMEN: Soft No tenderness. EXTREMITIES: 1+ bilateral lower extremity edema. No calf tenderness. NEUROLOGICAL: Patient is awake, alert and oriented x3. Assessment: Persistent atrial fibrillation Acute kidney injury with chronic kidney disease stage IIIa Urinary retention Hyperkalemia Abnormal TSH with history of hypothyroidism, attending to address Multiple falls and generalized weakness CAD status post PCI of the mid LAD With residual severe diagonal 1 disease of a small Vessel Dilated cardiomyopathy with EF of 40 to 45% Chronic heart failure with reduced EF Status post dual-chamber permanent pacemaker Medtronic Morbid obesity with BMI of 43 Diabetes mellitus type 2 on insulin Chronic anemia Obstructive sleep apnea not using CPAP Plan: Resume patient's home cardiac medications Hold Plavix and Xarelto due to anemia and multiple falls Obtain 2-D echocardiogram and Doppler study to assess cardiac structure and function Further recommendations to follow based upon clinical course Thank you kindly for this consultation. Nurse practitioner note has been reviewed, I agree with documented findings and plan of care. Patient was seen and examined. Past Medical History Past Medical History: Atrial Fibrillation, Asthma, Coronary Artery Disease (CAD), Diabetes Mellitus, GERD/Reflux, GI Bleed, Hyperlipidemia, Hypertension, Osteoarthritis (OA) Additional Past Medical History / Comment(s): See Dr Cabrales's H&P. see dr garcia's H & P, tri with oxygen use, perm pacemaker History of Any Multi-Drug Resistant Organisms: None Reported Past Surgical History: Appendectomy, Section, Cholecystectomy, Heart Catheterization With Stent, Hysterectomy, Joint Replacement, Orthopedic Surgery Additional Past Surgical History / Comment(s): Bilateral carpal tunnel, bilateral total knee replacements, colonoscopy, EGD. thumb surgery x 2 Past Anesthesia/Blood Transfusion Reactions: Previous Problems w/ Anesthesia Additional Past Anesthesia/Blood Transfusion Reaction / Comment(s): Had spinal fluid leak w/ prior spinal for knee surgery-stated was told not to have spinals. No problems with blood transfusion received 30-40 yrs ago. Date of Last Stent Placement:: 2022 Past Psychological History: No Psychological Hx Reported Smoking Status: Never smoker Past Alcohol Use History: None Reported Past Drug Use History: None Reported - Past Family History Mother Family Medical History: No Reported History Medications and Allergies Home Medications Medication Instructions Recorded Confirmed Type Omeprazole 20 mg PO HS 06/04/16 08/30/24 History Rivaroxaban [Xarelto] 20 mg PO W/SUPPER 06/04/16 08/30/24 History allopurinoL [Zyloprim] 300 mg PO DAILY 06/04/16 08/30/24 History Cholecalciferol [Vitamin D3 (25 25 mcg PO DAILY 09/03/22 08/30/24 History Mcg = 1000 Iu)] oxyBUTYnin chloride [Ditropan] 5 mg PO DAILY 09/03/22 08/30/24 History Pregabalin [Lyrica] 150 mg PO TID 11/17/22 08/30/24 History Cetirizine HCl [Zyrtec] 10 mg PO DAILY 04/11/23 08/30/24 History Empagliflozin [Jardiance] 10 mg PO DAILY 04/11/23 08/30/24 History Ferrous Sulfate [Iron (65 MG 325 mg PO DAILY 04/11/23 08/30/24 History Elemental)] HYDROcodone/APAP 10-325MG [[place] 1 tab PO QID 10/22/23 08/30/24 History 10-325] Insulin Aspart [NovoLOG Flexpen] See Protocol SQ AC-TID 10/22/23 08/30/24 History Levothyroxine Sodium [Synthroid] 50 mcg PO DAILY@0630 30 Days #30 10/26/23 08/30/24 Rx tab Tamsulosin [Flomax] 0.4 mg PO PC-BRKFST 30 Days #30 cap 10/26/23 08/30/24 Rx Amitriptyline HCl [Elavil] 10 mg PO HS 04/29/24 08/30/24 History Atorvastatin [Lipitor] 40 mg PO HS 04/29/24 08/30/24 History Azelastine HCl [Astelin Nasal 1 spr EA NOSTRIL BID 04/29/24 08/30/24 History Phillips] Clopidogrel [Plavix] 75 mg PO DAILY 04/29/24 08/30/24 History Ascorbic Acid [Vitamin C] 500 mg PO BID tab 05/04/24 08/30/24 Rx Zinc Sulfate [Orazinc] 220 mg PO DAILY #30 cap 05/04/24 08/30/24 Rx guaiFENesin SYRUP 100MG/5ML 200 mg PO Q6HR PRN ml 05/04/24 08/30/24 Rx [Robitussin] Albuterol Inhaler [Ventolin Hfa 2 puff INHALATION RT-QID PRN 08/30/24 08/30/24 History Inhaler] Amiodarone [Cordarone] 200 mg PO DAILY 08/30/24 08/30/24 History Aspirin EC [Ecotrin Low Dose] 81 mg PO DAILY 08/30/24 08/30/24 History Escitalopram [Lexapro] 10 mg PO DAILY 08/30/24 08/30/24 History Losartan/Hydrochlorothiazide 1 tab PO DAILY 08/30/24 08/30/24 History [Hyzaar 100-25 Tablet] Metoprolol Succinate (ER) [Toprol 50 mg PO DAILY 08/30/24 08/30/24 History Xl] Nitroglycerin Sl Tabs [Nitrostat] 0.4 mg SL Q5M PRN 08/30/24 08/30/24 History Spironolactone [Aldactone] 25 mg PO DAILY 08/30/24 08/30/24 History Tirzepatide [Mounjaro] 12.5 mg SQ FR 08/30/24 08/30/24 History Torsemide [Demadex] 10 mg PO DAILY 08/30/24 08/30/24 History metFORMIN HCL 1,000 mg PO BID 08/30/24 08/30/24 History Allergies Allergy/AdvReac Type Severity Reaction Status Date / Time No Known Allergies Allergy Verified 08/30/24 10:04 Physical Exam Vitals: Vital Signs Temp Pulse Pulse Resp BP BP Pulse Ox 08/31/24 08:00 97.9 F 63 18 102/44 95 08/31/24 04:00 97.6 F 64 17 108/47 94 L 08/31/24 02:00 63 20 08/31/24 00:00 97.7 F 64 20 111/55 95 08/30/24 22:12 98.0 F 63 19 118/58 97 08/30/24 22:00 63 20 08/30/24 21:17 62 18 100/81 85 L 08/30/24 19:50 61 18 133/53 95 08/30/24 16:05 62 15 98/49 93 L Intake and Output 08/30/24 08/31/24 08/31/24 22:59 06:59 14:59 Intake Total 1260 118 Output Total 525 475 Balance -525 785 118 Intake: Intake, IV Titration 780 Amount Dextrose 5% in Water 1, 780 000 ml @ 130 mls/hr IV . Q8H51M RAFFI with Sodium Bicarb (1 Meq/ml) 150 ml Rx#:[id number] Oral 480 118 Output: Urine 525 475 Other: Voiding Method Indwelling Catheter Indwelling Catheter Weight 122.47 kg 123 kg Results 08/31/24 07:31 08/31/24 07:31 Cardiac Enzymes 08/31/24 Range/Units 07:31 AST 35 (14-36) U/L CBC 08/31/24 Range/Units 07:31 WBC 3.4 L (3.8-10.6) k/uL RBC 2.93 L (3.80-5.40) m/uL Hgb 8.2 L (11.4-16.0) gm/dL Hct 27.4 L (34.0-46.0) % Plt Count 142 L (150-450) k/uL Comprehensive Metabolic Panel 08/30/24 08/30/24 08/31/24 Range/Units 15:50 23:24 07:31 Sodium 139 140 139 (137-145) mmol/L Potassium 6.5 H* 6.2 H* 6.0 H (3.5-5.1) mmol/L Chloride 108 H 108 H 107 (98-107) mmol/L Carbon Dioxide 21 L 21 L 24 (22-30) mmol/L BUN 98 H 98 H 94 H (7-17) mg/dL Creatinine 3.64 H 3.32 H 2.89 H (0.52-1.04) mg/dL Glucose 94 87 99 (74-99) mg/dL Calcium 8.9 8.6 8.5 (8.4-10.2) mg/dL AST 35 (14-36) U/L ALT 24 (4-34) U/L Alkaline Phosphatase 75 (38-126) U/L Total Protein 5.7 L (6.3-8.2) g/dL Albumin 3.4 L (3.5-5.0) g/dL Current Medications Generic Name Dose Route Start Last Admin Trade Name Freq PRN Reason Stop Dose Admin Albuterol Sulfate 2.5 mg 08/30/24 14:28 Albuterol Nebulized 2.5 Mg/3 Ml INHALATION RT-QID PRN Shortness Of Breath Allopurinol 300 mg 08/31/24 09:00 08/31/24 08:32 Allopurinol 300 Mg Tab PO 300 mg DAILY RAFFI Administration Amitriptyline HCl 10 mg 08/30/24 21:00 08/30/24 22:35 Amitriptyline Hcl 10 Mg Tab PO Not Given HS RAFFI Azelastine HCl 1 spray 08/30/24 21:00 08/31/24 08:32 Azelastine 137mcg/Phillips EA NOSTRIL 1 spray BID RAFFI Administration Cholecalciferol 25 mcg 08/31/24 09:00 08/31/24 08:32 Cholecalciferol 25 Mcg (1000 Iu) Tablet PO 25 mcg DAILY RAFFI Administration Clopidogrel Bisulfate 75 mg 08/31/24 09:00 08/31/24 08:32 Clopidogrel 75 Mg Tab PO 75 mg DAILY RAFFI Administration Ferrous Sulfate 325 mg 08/31/24 09:00 08/31/24 08:32 Ferrous Sulfate 325 Mg Tab PO 325 mg DAILY RAFFI Administration Guaifenesin 200 mg 08/30/24 14:28 Guaifenesin Syrup 100mg/5ml 200 Mg/10 Ml Cup PO Q6HR PRN Cough Sodium Chloride 1,000 mls @ 75 mls/hr 08/31/24 11:15 08/31/24 12:04 Saline 0.9% IV 75 mls/hr .[id number] RAFFI Administration Levothyroxine Sodium 50 mcg 08/31/24 06:30 08/31/24 06:29 Levothyroxine 50 Mcg Tab PO 50 mcg DAILY@0630 RAFFI Administration Metoprolol Succinate 50 mg 08/31/24 09:00 08/31/24 08:32 Metoprolol Succinate (Er) 50 Mg Tab.Er.24h PO 50 mg DAILY RAFFI Administration Morphine Sulfate 4 mg 08/30/24 05:26 08/30/24 22:36 Morphine Sulfate 4 Mg/Ml Syringe IV 4 mg Q4HR PRN Administration Severe Pain (Scale 7 to 10) Naloxone HCl 0.2 mg 08/30/24 05:26 Naloxone 0.4 Mg/Ml 1 Ml Vial IV Q2M PRN Opioid Reversal Ondansetron HCl 4 mg 08/30/24 05:26 Ondansetron 4 Mg/2 Ml Vial IVP Q8HR PRN Nausea And Vomiting Oxybutynin Chloride 5 mg 08/31/24 09:00 08/31/24 08:32 Oxybutynin Chloride 5 Mg Tab PO 5 mg DAILY RAFFI Administration Pantoprazole Sodium 40 mg 08/30/24 21:00 08/30/24 22:36 Pantoprazole 40 Mg Tablet PO 40 mg HS RAFFI Administration Sodium Bicarbonate 650 mg 08/30/24 13:30 08/31/24 08:33 Sodium Bicarbonate Tab 650 Mg Tab PO Not Given BID RAFFI Sodium Zirconium Cyclosilicate 10 gm 08/31/24 11:30 08/31/24 12:04 Sodium Zirconium Cyclosilicate 10 Gm Packet PO 09/01/24 09:01 10 gm TID RAFFI Administration Tamsulosin HCl 0.4 mg 08/31/24 08:30 08/31/24 08:32 Tamsulosin 0.4 Mg Cap.Er.24h PO 0.4 mg PC-BRKFST RAFFI Administration Zinc Sulfate 220 mg 08/31/24 09:00 08/31/24 08:32 Zinc Sulfate 220 Mg Cap PO 220 mg DAILY RAFFI Administration Intake and Output 08/30/24 08/31/24 08/31/24 22:59 06:59 14:59 Intake Total 1260 118 Output Total 525 475 Balance -525 785 118 Intake: Intake, IV Titration 780 Amount Dextrose 5% in Water 1, 780 000 ml @ 130 mls/hr IV . Q8H51M RAFFI with Sodium Bicarb (1 Meq/ml) 150 ml Rx#:[id number] Oral 480 118 Output: Urine 525 475 Other: Voiding Method Indwelling Catheter Indwelling Catheter Weight 122.47 kg 123 kg 08/31/24 07:31 08/31/24 07:31
[2024-08-31 16:52] LABS: Glucose,Whole Blood 160 mg/dL (70-110)
--- NOTE | 2024-08-31 17:04 | CA ---
Transthoracic Echo Report Name: Luz Swann Age: 68 Gender: F : 1955 Exam Date: 08/31/2024 14:52 Exam Location: [facility] Ht (in): 66 Wt (lb): 271 Ordering Physician: Dea Antoine Attending/Referring Phys: [id number], Elina Manager Park Rona De La Rosa, JAMEL Procedure CPT: Indications: LVF Cardiac Hx: Technical Quality: Technically difficult study, Poor Contrast 1: Definity Total Dose (mL): 2 Contrast 2: Total Dose (mL): MEASUREMENTS (Male / Female) Normal Values 2D ECHO LV Diastolic Diameter PLAX 6.4 cm 4.2 - 5.9 / 3.9 - 5.3 cm LV Systolic Diameter PLAX 4.7 cm IVS Diastolic Thickness 0.8 cm 0.6 - 1.0 / 0.6 - 0.9 cm LVPW Diastolic Thickness 0.8 cm 0.6 - 1.0 / 0.6 - 0.9 cm LV Relative Wall Thickness 0.3 RV Internal Dim ED PLAX 2.4 cm LA Systolic Diameter LX 5.0 cm 3.0 - 4.0 / 2.7 - 3.8 cm M-MODE Aortic Root Diameter MM 3.8 cm LA Systolic Diameter MM 4.6 cm LA Ao Ratio MM 1.2 AV Cusp Separation MM 2.4 cm DOPPLER AV Peak Velocity 162.8 cm/s AV Peak Gradient 10.6 mmHg MV Peak Velocity 155.7 cm/s MV Peak Gradient 9.7 mmHg MV Mean Velocity 71.2 cm/s MV Mean Gradient 2.8 mmHg MV Velocity Time Integral 35.5 cm Mitral E Point Velocity 149.9 cm/s Mitral A Point Velocity 48.9 cm/s Mitral E to A Ratio 3.1 MV Deceleration Time 361.3 ms MV E' Velocity 7.9 cm/s Mitral E to MV E' Ratio 19.0 TR Peak Velocity 266.4 cm/s TR Peak Gradient 28.4 mmHg FINDINGS Left Ventricle Left ventricular ejection fraction is estimated at 40-45%. Severely increased left ventricular diastolic diameter. Mild concentric left ventricular hypertrophy. Moderately reduced global left ventricular systolic function. Right Ventricle Mild right ventricular dilatation. Mild pulmonary hypertension. Right Atrium Moderate right atrial dilatation. Catheter/pacemaker wire in the right atrial cavity. Left Atrium Severely increased left atrial diameter. Mitral Valve Mitral valve thickened. Mitral annular calcification. Moderate mitral regurgitation. Aortic Valve Trileaflet aortic valve. No aortic stenosis. Trace aortic regurgitation. Tricuspid Valve Structurally normal tricuspid valve. Mild tricuspid regurgitation. No tricuspid stenosis. Pulmonic Valve Structurally normal pulmonic valve. Trace pulmonic regurgitation. No pulmonic stenosis. Pericardium No pericardial or pleural effusion. Aorta Mild aortic dilatation at the level of the sinuses of valsalva (root). CONCLUSIONS Left ventricular ejection fraction 40-45% Moderate mitral regurgitation Trace aortic regurgitation Mild tricuspid regurgitation Previewed by: Dr. Son Yuen DO (Electronically Signed) Final Date: 31 August 2024 17:03
[2024-08-31 20:16] LABS: Glucose,Whole Blood 185 mg/dL (70-110)
--- NOTE | 2024-08-31 23:00 | P.PN ---
Subjective Progress Note Date: 08/31/24 This is a pleasant 68-year-old female who was recently admitted with severe hyperkalemia with acute on chronic renal failure with nephrology and cardiology following. Patient has been having recurrent falls and more frequently with generalized weakness with multiple ecchymosis noted. Patient does have history of atrial fibrillation maintained on anticoagulation along with Plavix which is currently being placed on hold with concerns of anemia and falling. Patient was maintained on bicarb drip and being transition to oral bicarb along with gentle hydration and was given a dose of Lasix per nephrology. Showing some improvements in kidney functions and will follow-up on repeat labs. Cardiology evaluating and ordered 2D echo for further evaluation. Patient with significant weakness awaiting PT/OT therapy evaluation. Patient does have Roque catheter and reports was placed for retention. review of systems: Constitutional: No reports of fatigue, fever, or chills Cardiovascular: No reports of chest pain or palpitations Respiratory: No reports of shortness of breath or cough GI: No reports of nausea, no reports of vomiting, no diarrhea : No reports of dysuria or retention Neurovascular: reports of generalized weakness All medications have been reviewed PHYSICAL EXAMINATION: GENERAL: The patient is alert and oriented x3, Well developed, elderly appearing, morbidly obese, ill-appearing HEENT: Pupils are round and equally reacting to light. EOMI. no scleral icterus. No conjunctival pallor. Normocephalic, atraumatic. No pharyngeal erythema. No thyromegaly. CARDIOVASCULAR: S1 and S2 muffled PULMONARY: diminished breath sounds bilaterally with no wheezing or rhonchi noted. ABDOMEN: soft. Nontender on exam. obese. non-distended, normoactive bowel sounds. No palpable organomegaly. MUSCULOSKELETAL: No joint swelling or deformity. EXTREMITIES: No cyanosis, clubbing, or pedal edema. NEUROLOGICAL: Gross neurological examination did not reveal any focal deficits. Diffuse weakness SKIN: No rashes. Assessment: Acute on chronic renal failure with severe hypokalemia, history of chronic kidney disease stage IIIa Urinary retention requiring indwelling Roque catheter Falls and multiple ecchymosis Hypothyroidism with elevated TSH, will order T3 and T4 free Gait dysfunction with recurrent falls Morbid obesity with a BMI of 43.8 Anemia, likely of chronic disease History of atrial fibrillation, persistent, maintained on anticoagulation Diabetes mellitus, type II, uncontrolled with hyperglycemia History of hypertension History of hyperlipidemia History of coronary artery disease with previous stenting to the mid LAD Dilated cardiomyopathy with an EF of 40 to 45% History of chronic heart failure with reduced EF, not in CHF exacerbation Status post dual-chamber permanent pacemaker placement, Medtronic History of obstructive sleep apnea, does not use a CPAP GI prophylaxis DVT prophylaxis Full code Plan: Recommend to continue with current medications and management with nephrology and cardiology following. Adjustments to medications being made and patient was given 1 time dose of Lasix. Sodium bicarb drip being discontinued and patient maintained on sodium bicarb tablets along with gentle hydration. Kidney functions are improving slowly and will continue indwelling Roque catheter as patient had this for retention recommend follow-up labs in the a.m. TSH was quite elevated and will order T3/T4 free Patient with significant weakness awaiting PT/OT therapy and patient is now agreeable to ECF. Case management following awaiting updated notes Encouraged increase activity as tolerated Will follow-up with repeat labs and discuss further with cardiology and nephrology regarding discharge planning Possible discharge in the next 24 to 48 hours The impression and plan of care has been dictated by Celsa Ragland, nurse practitioner as directed. Dr. Devi MD I have performed a history and examination and MDM of this patient, discussed the same with the dictator, and agree with the dictator's assessment and plan as written ,documented as a scribe. Based on total visit time, I have performed more than 50% of the visit. Any additional findings or plans will be noted. Objective - Vital Signs Vital signs: Vital Signs Temp 97.9 F 08/31/24 08:00 Pulse 63 08/31/24 08:00 Resp 18 08/31/24 08:00 BP 102/44 08/31/24 08:00 Pulse Ox 95 08/31/24 08:00 FiO2 Intake & Output 08/30/24 08/31/24 08/31/24 18:59 06:59 18:59 Intake Total 1260 118 Output Total 1000 Balance 260 118 Weight 123 kg Intake: Intake, IV Titration 780 Amount Dextrose 5% in Water 1, 780 000 ml @ 130 mls/hr IV . Q8H51M RAFFI with Sodium Bicarb (1 Meq/ml) 150 ml Rx#:[id number] Oral 480 118 Output: Urine 1000 Other: Voiding Method Indwelling Catheter - Labs CBC & Chem 7: 08/31/24 07:31 08/31/24 15:24 Labs: Abnormal Lab Results - Last 24 Hours (Table) 08/30/24 08/30/24 08/30/24 Range/Units 14:43 15:50 23:24 WBC (3.8-10.6) k/uL RBC (3.80-5.40) m/uL Hgb (11.4-16.0) gm/dL Hct (34.0-46.0) % MCHC (31.0-37.0) g/dL RDW (11.5-15.5) % Plt Count (150-450) k/uL Lymphocytes # (1.0-4.8) k/uL Potassium 6.5 H* 6.2 H* (3.5-5.1) mmol/L Chloride 108 H 108 H (98-107) mmol/L Carbon Dioxide 21 L 21 L (22-30) mmol/L BUN 98 H 98 H (7-17) mg/dL Creatinine 3.64 H 3.32 H (0.52-1.04) mg/dL POC Glucose (mg/dL) (70-110) mg/dL Creatine Kinase 268 H (30-135) U/L Total Protein (6.3-8.2) g/dL Albumin (3.5-5.0) g/dL Urine Glucose (UA) Trace H (Negative) Urine Nitrite Positive H (Negative) Ur Leukocyte Esterase Small H (Negative) Urine Bacteria Many H (None) /hpf Urine Mucus Rare H (None) /hpf 08/31/24 08/31/24 08/31/24 Range/Units 06:10 07:31 07:31 WBC 3.4 L (3.8-10.6) k/uL RBC 2.93 L (3.80-5.40) m/uL Hgb 8.2 L (11.4-16.0) gm/dL Hct 27.4 L (34.0-46.0) % MCHC 29.8 L (31.0-37.0) g/dL RDW 19.8 H (11.5-15.5) % Plt Count 142 L (150-450) k/uL Lymphocytes # 0.6 L (1.0-4.8) k/uL Potassium 6.0 H (3.5-5.1) mmol/L Chloride (98-107) mmol/L Carbon Dioxide (22-30) mmol/L BUN 94 H (7-17) mg/dL Creatinine 2.89 H (0.52-1.04) mg/dL POC Glucose (mg/dL) 131 H (70-110) mg/dL Creatine Kinase 205 H (30-135) U/L Total Protein 5.7 L (6.3-8.2) g/dL Albumin 3.4 L (3.5-5.0) g/dL Urine Glucose (UA) (Negative) Urine Nitrite (Negative) Ur Leukocyte Esterase (Negative) Urine Bacteria (None) /hpf Urine Mucus (None) /hpf
[2024-08-31 23:48] LABS: T4, Free (Free Thyroxine) 0.6 ng/dL (0.78-2.19)
[2024-09-01 06:03] LABS: Glucose,Whole Blood 135 mg/dL (70-110)
[2024-09-01 06:53] LABS: Anisocytosis Slight; Basophils % (A) 0 %; Eosinophils # (A) 0.2 k/uL (0-0.7); Eosinophils % (A) 4 %; HGB 8.3 gm/dL (11.4-16.0); Hypochromasia Marked; Lymphocytes # (A) 0.7 k/uL (1.0-4.8); Lymphocytes % (A) 16 %; MCH 27.9 pg (25.0-35.0); MCHC 30.7 g/dL (31.0-37.0); Mean Platelet Volume 8.7; Monocytes # (A) 0.4 k/uL (0-1.0); Monocytes % (A) 8 %; Neutrophils # (A) 3.2 k/uL (1.3-7.7); Neutrophils % (A) 71 %; Platelet Count 129 k/uL (150-450); RBC 2.97 m/uL (3.80-5.40); RDW 19.8 % (11.5-15.5); WBC 4.5 k/uL (3.8-10.6)
[2024-09-01 07:14] LABS: African American GFR (CKD) 29 (>60 ml/min/1.73 sqM); Anion Gap 7 mmol/L; Blood Urea Nitrogen 71 mg/dL (7-17); Calcium 8.8 mg/dL (8.4-10.2); Carbon Dioxide 27 mmol/L (22-30); Chloride 107 mmol/L (98-107); Glucose 128 mg/dL (74-99); Magnesium 1.6 mg/dL (1.6-2.3); Non-African American GFR(CKD) 25 (>60 ml/min/1.73 sqM); Potassium 4.6 mmol/L (3.5-5.1); Sodium 141 mmol/L (137-145)
[2024-09-01 11:37] LABS: Glucose,Whole Blood 171 mg/dL (70-110)
[2024-09-01] MEDS ORDERED: hydrALAZINE HCL 20 MG/ML 1 ML VIAL IVP PRN (11:47)
--- NOTE | 2024-09-01 11:48 | P.PN ---
Subjective Patient is seen in follow-up for acute kidney injury. Renal function improving. Potassium normal today. Has a Roque catheter for urinary retention. Oral intake is good. On IV fluids. Vital signs are stable. General: No acute distress. HEENT: Head exam is unremarkable. LUNGS: No audible rhonchi or wheezes. HEART: Rate and Rhythm are regular. ABDOMEN: Nontender. EXTREMITITES: No edema. Objective - Vital Signs Vital signs: Vital Signs Temp 97.9 F 09/01/24 11:13 Pulse 66 09/01/24 11:13 Resp 18 09/01/24 11:13 BP 163/52 09/01/24 11:13 Pulse Ox 95 09/01/24 11:13 FiO2 Intake & Output 08/31/24 09/01/24 09/01/24 18:59 06:59 18:59 Intake Total 354 20 190 Output Total 1900 2600 800 Balance -1546 -2580 -610 Weight 125.7 kg Intake: IV 20 10 Invasive Line 2 20 10 Oral 354 180 Output: Urine 1900 2600 800 Other: Voiding Method Indwelling Catheter Indwelling Catheter # Bowel Movements 1 - Labs CBC & Chem 7: 09/01/24 06:04 09/01/24 06:04 Labs: Abnormal Lab Results - Last 24 Hours (Table) 08/31/24 08/31/24 08/31/24 Range/Units 07:31 15:24 16:51 RBC (3.80-5.40) m/uL Hgb (11.4-16.0) gm/dL Hct (34.0-46.0) % MCHC (31.0-37.0) g/dL RDW (11.5-15.5) % Plt Count (150-450) k/uL Lymphocytes # (1.0-4.8) k/uL Potassium 5.4 H (3.5-5.1) mmol/L BUN (7-17) mg/dL Creatinine (0.52-1.04) mg/dL Glucose (74-99) mg/dL POC Glucose (mg/dL) 160 H (70-110) mg/dL Free T4 0.60 L (0.78-2.19) ng/dL Free T3 pg/mL 1.10 L (2.30-4.20) pg/mL 0309/01/24 09/01/24 Range/Units 20:14 06:02 06:04 RBC (3.80-5.40) m/uL Hgb (11.4-16.0) gm/dL Hct (34.0-46.0) % MCHC (31.0-37.0) g/dL RDW (11.5-15.5) % Plt Count (150-450) k/uL Lymphocytes # (1.0-4.8) k/uL Potassium (3.5-5.1) mmol/L BUN 71 H (7-17) mg/dL Creatinine 1.99 H (0.52-1.04) mg/dL Glucose 128 H (74-99) mg/dL POC Glucose (mg/dL) 185 H 135 H (70-110) mg/dL Free T4 (0.78-2.19) ng/dL Free T3 pg/mL (2.30-4.20) pg/mL 09/01/24 09/01/24 Range/Units 06:04 11:36 RBC 2.97 L (3.80-5.40) m/uL Hgb 8.3 L (11.4-16.0) gm/dL Hct 27.0 L (34.0-46.0) % MCHC 30.7 L (31.0-37.0) g/dL RDW 19.8 H (11.5-15.5) % Plt Count 129 L (150-450) k/uL Lymphocytes # 0.7 L (1.0-4.8) k/uL Potassium (3.5-5.1) mmol/L BUN (7-17) mg/dL Creatinine (0.52-1.04) mg/dL Glucose (74-99) mg/dL POC Glucose (mg/dL) 171 H (70-110) mg/dL Free T4 (0.78-2.19) ng/dL Free T3 pg/mL (2.30-4.20) pg/mL Assessment and Plan Plan: Assessment: 1. Acute kidney injury secondary to vasomotor nephropathy with component of urinary retention. Creatinine 3.85 on admission and is 1.99 today. 2. Chronic kidney disease stage IIIa with baseline creatinine 1.1-1.3 secondary to nephrosclerosis. 3. Urinary retention. Has Roque catheter. On Flomax. 4. Hyperkalemia secondary to acute kidney injury, acidosis, urinary retention. Was also on Aldactone and losartan outpatient. Improved with medical management. 5. Diabetes mellitus. 6. Chronic systolic CHF ejection fraction of 40 to 45% and moderate mitral regurgitation. 7. Anemia of chronic kidney disease. Rule out iron deficiency. Plan: Hep-Lock IV fluids. Continue to hold losartan and Aldactone. Follow-up cortisol level. Avoid nephrotoxins. Continue to monitor renal function and urine output. Replace magnesium. Check iron studies. Add amlodipine 5 mg once daily.
[2024-09-01] MEDS: amLODIPine 5 MG TAB PO SCH (12:15)
[2024-09-01] MEDS: MAGNESIUM SULFATE-D5W PMX 1 GM in DEXTROSE/WATER 1 100ML.BAG IVPB SCH (12:15)
--- NOTE | 2024-09-01 13:56 | P.PN ---
Subjective Progress Note Date: 09/01/24 Consult reason: atrial fibrillation History of present illness: This is a 68-year-old female patient of Dr. Cabrales with past medical history of persistent atrial fibrillation status post cardioversion in March 2023, failed amiodarone status post PVI in October 2023 with relapse to atrial fibrillation, currently paroxysmal, dilated cardiomyopathy with EF of 40 to 45%, heart failure with reduced ejection fraction, and YH a class III, CAD status post PCI to the LAD with WILDA with residual severe diagonal 1 disease which is small vessel, hypothyroidism, morbid obesity, diabetes mellitus type 2 insulin requiring, chronic anemia, obstructive sleep apnea not using CPAP. We have been asked to evaluate the patient for atrial fibrillation Patient gives history that she had had multiple falls at home including 2 this week. She states she starts feeling jittery and her body starts shaking and then she cannot support herself with her legs and she falls to the ground. She denies syncopal episodes. Patient denies chest pain, shortness of breath, no palpitations. No lightheadedness or dizziness. Blood pressure 102/44, heart rate 60s, pulse ox 95% on room air. -EKG: Poor quality EKG most likely from patient's tremors but appears to be paced rhythm with atrial fibrillation with controlled ventricular rate -Chest x-ray: Cardiomegaly and mild pulmonary vascular congestion. -Laboratory studies: WBC 3.4, hemoglobin 8.2, platelet count 142. Initial po tassium 6.2 and is now 6, BUN was 98 now 94, creatinine 3.32 now 2.89. TSH 78.8. -Home cardiac medications: Amiodarone 200 mg daily, aspirin 81 mg daily, atorvastatin 40 mg at bedtime, Plavix 75 mg daily, Jardiance 10 mg daily, losartan/hydrochlorothiazide 100-25 mg daily, metoprolol succinate 50 mg daily, Nitrostat as needed, Xarelto 20 mg with supper, spironolactone 25 mg daily, Demadex 10 mg daily. -Lexiscan Cardiolite stress test performed 01/2024: Large area of remote insult anterior wall. No evidence of reversible ischemia. -Echocardiogram 10/22/2023: Technically difficult study with EF 45 to 50%. -Dual-chamber permanent pacemaker Medtronic implantation 11/25/2023 -Cardiac catheterization performed 03/08/2023 revealed significant obstructive disease in the LAD Status post successful stenting of the mid LAD. 09/01 Patient seen and examined. Patient states she is feeling well today. She has not been up and ambulating as she states that no one will let her. Patient does have therapies on consult. Blood pressure 141/68, heart rate 62, pulse ox 94% on room air. Repeat blood work reveals hemoglobin 8.3, BUN 71 creatinine 1.99. Echocardiogram reveals EF 40 to 45%, moderate MR, trace AR, mild TR. Physical examination: Gen: This is 68-year-old female in no acute distress VS: reviewed HEENT: Head is atraumatic, normocephalic. Pupils equal, round. Sclerae is anicteric. NECK: Supple. No JVD. LUNGS: Clear to auscultation. No wheezes or rhonchi. No intercostal retractions. HEART: Irregular rate and rhythm. No murmur. ABDOMEN: Soft No tenderness. EXTREMITIES: 1+ bilateral lower extremity edema. No calf tenderness. NEUROLOGICAL: Patient is awake, alert and oriented x3. Assessment: Persistent atrial fibrillation Acute kidney injury with chronic kidney disease stage IIIa Urinary retention Hyperkalemia Abnormal TSH with history of hypothyroidism, attending to address Multiple falls and generalized weakness CAD status post PCI of the mid LAD With residual severe diagonal 1 disease of a small Vessel Dilated cardiomyopathy with EF of 40 to 45% Chronic heart failure with reduced EF Status post dual-chamber permanent pacemaker Medtronic Morbid obesity with BMI of 43 Diabetes mellitus type 2 on insulin Chronic anemia Obstructive sleep apnea not using CPAP Plan: Resume patient's home cardiac medications Hold Plavix and Xarelto due to anemia and multiple falls No further cardiac workup at this time. Increase activity Patient is cleared from cardiology perspective for discharge Nurse practitioner note has been reviewed, I agree with documented findings and plan of care. Patient was seen and examined. Objective - Vital Signs Vital signs: Vital Signs Temp 98.0 F 09/01/24 09:14 Pulse 62 09/01/24 09:14 Resp 18 09/01/24 09:14 BP 141/68 09/01/24 09:14 Pulse Ox 94 L 09/01/24 09:14 FiO2 Intake & Output 08/31/24 09/01/24 09/01/24 18:59 06:59 18:59 Intake Total 354 20 180 Output Total 1900 2600 Balance -1546 -2580 180 Weight 125.7 kg Intake: IV 20 Invasive Line 2 20 Oral 354 180 Output: Urine 1900 2600 Other: Voiding Method Indwelling Catheter # Bowel Movements 1 - Labs CBC & Chem 7: 09/01/24 06:04 09/01/24 06:04 Labs: Abnormal Lab Results - Last 24 Hours (Table) 08/31/24 08/31/24 08/31/24 Range/Units 07:31 11:20 15:24 RBC (3.80-5.40) m/uL Hgb (11.4-16.0) gm/dL Hct (34.0-46.0) % MCHC (31.0-37.0) g/dL RDW (11.5-15.5) % Plt Count (150-450) k/uL Lymphocytes # (1.0-4.8) k/uL Potassium 5.4 H (3.5-5.1) mmol/L BUN (7-17) mg/dL Creatinine (0.52-1.04) mg/dL Glucose (74-99) mg/dL POC Glucose (mg/dL) 193 H (70-110) mg/dL Free T4 0.60 L (0.78-2.19) ng/dL Free T3 pg/mL 1.10 L (2.30-4.20) pg/mL 08/31/24 08/31/24 09/01/24 Range/Units 16:51 20:14 06:02 RBC (3.80-5.40) m/uL Hgb (11.4-16.0) gm/dL Hct (34.0-46.0) % MCHC (31.0-37.0) g/dL RDW (11.5-15.5) % Plt Count (150-450) k/uL Lymphocytes # (1.0-4.8) k/uL Potassium (3.5-5.1) mmol/L BUN (7-17) mg/dL Creatinine (0.52-1.04) mg/dL Glucose (74-99) mg/dL POC Glucose (mg/dL) 160 H 185 H 135 H (70-110) mg/dL Free T4 (0.78-2.19) ng/dL Free T3 pg/mL (2.30-4.20) pg/mL 09/01/24 09/01/24 Range/Units 06:04 06:04 RBC 2.97 L (3.80-5.40) m/uL Hgb 8.3 L (11.4-16.0) gm/dL Hct 27.0 L (34.0-46.0) % MCHC 30.7 L (31.0-37.0) g/dL RDW 19.8 H (11.5-15.5) % Plt Count 129 L (150-450) k/uL Lymphocytes # 0.7 L (1.0-4.8) k/uL Potassium (3.5-5.1) mmol/L BUN 71 H (7-17) mg/dL Creatinine 1.99 H (0.52-1.04) mg/dL Glucose 128 H (74-99) mg/dL POC Glucose (mg/dL) (70-110) mg/dL Free T4 (0.78-2.19) ng/dL Free T3 pg/mL (2.30-4.20) pg/mL
[2024-09-01 15:19] LABS: % Iron Saturation 20.38 (12.00-45.00)
[2024-09-01] MEDS ORDERED: DEXTROSE 50% SYRINGE 50 ML IVP PRN ×2 (16:23)
[2024-09-01 16:56] LABS: Glucose,Whole Blood 157 mg/dL (70-110)
[2024-09-01] MEDS: INSULIN LISPRO (HumaLOG) 100 UNIT/ML 10 mL VL SQ SCH (17:20)
[2024-09-01 20:37] LABS: Glucose,Whole Blood 163 mg/dL (70-110)
[2024-09-02] MEDS: ALBUTEROL NEBULIZED 2.5 MG/3 ML INHALATION PRN (04:01)
--- NOTE | 2024-09-02 05:59 | P.PN ---
Subjective Progress Note Date: 09/01/24 This is a pleasant 68-year-old female who was recently admitted with severe hyperkalemia with acute on chronic renal failure with nephrology and cardiology following. Patient has been having recurrent falls and more frequently with generalized weakness with multiple ecchymosis noted. Patient does have history of atrial fibrillation maintained on anticoagulation along with Plavix which is currently being placed on hold with concerns of anemia and falling. Patient was maintained on bicarb drip and being transition to oral bicarb along with gentle hydration and was given a dose of Lasix per nephrology. Showing some improvements in kidney functions and will follow-up on repeat labs. Cardiology evaluating and ordered 2D echo for further evaluation. Patient with significant weakness awaiting PT/OT therapy evaluation. Patient does have Roque catheter and reports was placed for retention. 09/01/2024 Patient is seen in follow-up today with nephrology and cardiology following. Kidney functions are improving and creatinine is currently 1.99. Patient is continued on indwelling Roque catheter as patient had significant retention and will continue at this time. Plan is for patient to go to [facility] and has been accepted and will require insurance authorization. Patient reports to tolerati ng diet with no reported nausea or vomiting. Patient denies chest pain, shortness of breath, or palpitations. review of systems: Constitutional: No reports of fatigue, fever, or chills Cardiovascular: No reports of chest pain or palpitations Respiratory: No reports of shortness of breath or cough GI: No reports of nausea, no reports of vomiting, no diarrhea : No reports of dysuria or retention Neurovascular: reports of generalized weakness All medications have been reviewed PHYSICAL EXAMINATION: GENERAL: The patient is alert and oriented x3, Well developed, elderly appearing, morbidly obese, ill-appearing HEENT: Pupils are round and equally reacting to light. EOMI. no scleral icterus. No conjunctival pallor. Normocephalic, atraumatic. No pharyngeal erythema. No thyromegaly. CARDIOVASCULAR: S1 and S2 muffled PULMONARY: diminished breath sounds bilaterally with no wheezing or rhonchi noted. ABDOMEN: soft. Nontender on exam. obese. non-distended, normoactive bowel sounds. No palpable organomegaly. MUSCULOSKELETAL: No joint swelling or deformity. EXTREMITIES: No cyanosis, clubbing, or pedal edema. NEUROLOGICAL: Gross neurological examination did not reveal any focal deficits. Diffuse weakness SKIN: No rashes. Assessment: Acute on chronic renal failure with severe hypokalemia, history of chronic kidney disease stage IIIa Urinary retention requiring indwelling Roque catheter Falls and multiple ecchymosis Hypothyroidism with elevated TSH, and a low T3 and T4 free, adjusting levothyroxine will need outpatient labs in 4-6 weeks Gait dysfunction with recurrent falls Morbid obesity with a BMI of 43.8 Anemia, likely of chronic disease History of atrial fibrillation, persistent, maintained on anticoagulation Diabetes mellitus, type II, uncontrolled with hyperglycemia History of hypertension History of hyperlipidemia History of coronary artery disease with previous stenting to the mid LAD Dilated cardiomyopathy with an EF of 40 to 45% History of chronic heart failure with reduced EF, not in CHF exacerbation Status post dual-chamber permanent pacemaker placement, Medtronic History of obstructive sleep apnea, does not use a CPAP GI prophylaxis DVT prophylaxis Full code Plan: Recommend to continue with current medications and management with nephrology and cardiology following. Adjustments to medications being made and patient was given 1 time dose of Lasix. Sodium bicarb drip has been discontinued and patient maintained on sodium bicarb tablets along with gentle hydration. Kidney functions are improving slowly and will continue indwelling Roque catheter as patient had this for retention recommend follow-up labs in the a.m. creatinine this morning is 1.99 and will follow-up with repeat labs TSH was quite elevated and T3/T4 free are low, will increase levothyroxine to 75 mcg daily and will need outpatient labs in 4 to 6 weeks Patient with significant weakness, was evaluated by PT/OT therapy and patient is now agreeable to ECF. Case management following and has been accepted at [facility]. Pending insurance authorization Encouraged increase activity as tolerated Will follow-up with repeat labs and discuss further with cardiology and nephrology regarding discharge planning Possible discharge in the next 24 hours to [facility] on the harmony for continued strength and mobility The impression and plan of care has been dictated by Celsa Ragland, nurse practitioner as directed. Dr. Devi MD I have performed a history and examination and MDM of this patient, discussed the same with the dictator, and agree with the dictator's assessment and plan as written ,documented as a scribe. Based on total visit time, I have performed more than 50% of the visit. Any additional findings or plans will be noted. Objective - Vital Signs Vital signs: Vital Signs Temp 97.8 F 08/31/24 20:10 Pulse 62 09/01/24 03:25 Resp 17 09/01/24 03:25 BP 143/66 09/01/24 03:25 Pulse Ox 94 L 09/01/24 03:25 FiO2 Intake & Output 08/31/24 09/01/24 09/01/24 18:59 06:59 18:59 Intake Total 354 20 Output Total 1900 2600 Balance -1546 -2580 Weight 125.7 kg Intake: IV 20 Invasive Line 2 20 Oral 354 Output: Urine 1900 2600 Other: Voiding Method Indwelling Catheter # Bowel Movements 1 - Labs CBC & Chem 7: 09/01/24 06:04 09/01/24 06:04 Labs: Abnormal Lab Results - Last 24 Hours (Table) 08/31/24 08/31/24 08/31/24 Range/Units 07:31 11:20 15:24 RBC (3.80-5.40) m/uL Hgb (11.4-16.0) gm/dL Hct (34.0-46.0) % MCHC (31.0-37.0) g/dL RDW (11.5-15.5) % Plt Count (150-450) k/uL Lymphocytes # (1.0-4.8) k/uL Potassium 5.4 H (3.5-5.1) mmol/L BUN (7-17) mg/dL Creatinine (0.52-1.04) mg/dL Glucose (74-99) mg/dL POC Glucose (mg/dL) 193 H (70-110) mg/dL Free T4 0.60 L (0.78-2.19) ng/dL Free T3 pg/mL 1.10 L (2.30-4.20) pg/mL 08/31/24 08/31/24 09/01/24 Range/Units 16:51 20:14 06:02 RBC (3.80-5.40) m/uL Hgb (11.4-16.0) gm/dL Hct (34.0-46.0) % MCHC (31.0-37.0) g/dL RDW (11.5-15.5) % Plt Count (150-450) k/uL Lymphocytes # (1.0-4.8) k/uL Potassium (3.5-5.1) mmol/L BUN (7-17) mg/dL Creatinine (0.52-1.04) mg/dL Glucose (74-99) mg/dL POC Glucose (mg/dL) 160 H 185 H 135 H (70-110) mg/dL Free T4 (0.78-2.19) ng/dL Free T3 pg/mL (2.30-4.20) pg/mL 09/01/24 09/01/24 Range/Units 06:04 06:04 RBC 2.97 L (3.80-5.40) m/uL Hgb 8.3 L (11.4-16.0) gm/dL Hct 27.0 L (34.0-46.0) % MCHC 30.7 L (31.0-37.0) g/dL RDW 19.8 H (11.5-15.5) % Plt Count 129 L (150-450) k/uL Lymphocytes # 0.7 L (1.0-4.8) k/uL Potassium (3.5-5.1) mmol/L BUN 71 H (7-17) mg/dL Creatinine 1.99 H (0.52-1.04) mg/dL Glucose 128 H (74-99) mg/dL POC Glucose (mg/dL) (70-110) mg/dL Free T4 (0.78-2.19) ng/dL Free T3 pg/mL (2.30-4.20) pg/mL
[2024-09-02 06:28] LABS: Glucose,Whole Blood 129 mg/dL (70-110)
[2024-09-02] MEDS: LEVOTHYROXINE 75 MCG TAB PO SCH (06:39)
[2024-09-02 07:04] LABS: African American GFR (CKD) 45 (>60 ml/min/1.73 sqM); Anion Gap 7 mmol/L; Blood Urea Nitrogen 52 mg/dL (7-17); Calcium 9.1 mg/dL (8.4-10.2); Carbon Dioxide 30 mmol/L (22-30); Chloride 106 mmol/L (98-107); Glucose 111 mg/dL (74-99); Non-African American GFR(CKD) 39 (>60 ml/min/1.73 sqM); Potassium 4.1 mmol/L (3.5-5.1); Sodium 143 mmol/L (137-145)
[2024-09-02] MEDS: HYDROcodone/APAP 10-325MG 1 EACH TAB PO PRN (08:21)
--- NOTE | 2024-09-02 10:23 | P.PN ---
Subjective Patient is seen in follow-up for acute kidney injury. Renal function improving. Has a Roque catheter for urinary retention. Oral intake is good. Overall feeling better today. Wants to go home. Vital signs are stable. General: No acute distress. HEENT: Head exam is unremarkable. LUNGS: No audible rhonchi or wheezes. HEART: Rate and Rhythm are regular. ABDOMEN: Nontender. EXTREMITITES: No edema. Objective - Vital Signs Vital signs: Vital Signs Temp 97.7 F 09/02/24 03:45 Pulse 68 09/02/24 04:10 Resp 20 09/02/24 03:45 BP 154/64 09/02/24 03:45 Pulse Ox 97 09/02/24 03:45 FiO2 Intake & Output 09/01/24 09/02/24 09/02/24 18:59 06:59 18:59 Intake Total 650 20 520 Output Total 1425 500 Balance -775 -480 520 Weight 125.1 kg Intake: IV 20 20 Invasive Line 2 20 20 Oral 630 520 Output: Urine 1425 500 Other: Voiding Method Indwelling Catheter Indwelling Catheter # Bowel Movements 2 - Labs CBC & Chem 7: 09/01/24 06:04 09/02/24 06:12 Labs: Abnormal Lab Results - Last 24 Hours (Table) 08/30/24 09/01/24 09/01/24 Range/Units 15:50 11:36 16:55 BUN (7-17) mg/dL Creatinine (0.52-1.04) mg/dL Glucose (74-99) mg/dL POC Glucose (mg/dL) 171 H 157 H (70-110) mg/dL Total Creatine Kinase 279 H (30-223) u/L CK-BB (CK-1) 0.9 H (0.0) % 09/01/24 09/02/24 09/02/24 Range/Units 20:36 06:12 06:26 BUN 52 H (7-17) mg/dL Creatinine 1.38 H (0.52-1.04) mg/dL Glucose 111 H (74-99) mg/dL POC Glucose (mg/dL) 163 H 129 H (70-110) mg/dL Total Creatine Kinase (30-223) u/L CK-BB (CK-1) (0.0) % Assessment and Plan Plan: Assessment: 1. Acute kidney injury secondary to vasomotor nephropathy with component of urinary retention. Creatinine 3.85 on admission and is 1.38 today. 2. Chronic kidney disease stage IIIa with baseline creatinine 1.1-1.3 secondary to nephrosclerosis. 3. Urinary retention. Has Roque catheter. On Flomax. 4. Hyperkalemia secondary to acute kidney injury, acidosis, urinary retention. Was also on Aldactone and losartan outpatient. Improved with medical management. 5. Diabetes mellitus. 6. Chronic systolic CHF ejection fraction of 40 to 45% and moderate mitral regurgitation. 7. Anemia of chronic kidney disease. Mild iron deficiency noted. 8. Cardiomyopathy with ejection fraction of 40 to 45% with moderate mitral regurgitation. Plan: Remains off IV fluids. Continue to hold losartan and Aldactone. Cortisol level not low. Avoid nephrotoxins. Continue to monitor renal function and urine output. IV iron x 1 dose today. Amlodipine added September 01, 2024. Voiding trial today. Stop bicarb. Follow-up outpatient 1 week postdischarge.
[2024-09-02 10:37] VITALS: PULSE 63; TEMP 97.9
[2024-09-02 11:31] LABS: Glucose,Whole Blood 163 mg/dL (70-110)
[2024-09-02] MEDS: SODIUM FERRIC GLUCONAT-SUCROSE 125 MG in SODIUM CHLORIDE 0.9% 100 ML IVPB ONE (13:05)
[2024-09-02 13:44] VITALS: BP 134/59; RESP 18
--- NOTE | 2024-09-02 14:13 | P.PN ---
Subjective Progress Note Date: 09/02/24 Consult reason: atrial fibrillation History of present illness: This is a 68-year-old female patient of Dr. Cabrales with past medical history of persistent atrial fibrillation status post cardioversion in March 2023, failed amiodarone status post PVI in October 2023 with relapse to atrial fibrillation, currently paroxysmal, dilated cardiomyopathy with EF of 40 to 45%, heart failure with reduced ejection fraction, and YH a class III, CAD status post PCI to the LAD with WILDA with residual severe diagonal 1 disease which is small vessel, hypothyroidism, morbid obesity, diabetes mellitus type 2 insulin requiring, chronic anemia, obstructive sleep apnea not using CPAP. We have been asked to evaluate the patient for atrial fibrillation Patient gives history that she had had multiple falls at home including 2 this week. She states she starts feeling jittery and her body starts shaking and then she cannot support herself with her legs and she falls to the ground. She denies syncopal episodes. Patient denies chest pain, shortness of breath, no palpitations. No lightheadedness or dizziness. Blood pressure 102/44, heart rate 60s, pulse ox 95% on room air. -EKG: Poor quality EKG most likely from patient's tremors but appears to be paced rhythm with atrial fibrillation with controlled ventricular rate -Chest x-ray: Cardiomegaly and mild pulmonary vascular congestion. -Laboratory studies: WBC 3.4, hemoglobin 8.2, platelet count 142. Initial po tassium 6.2 and is now 6, BUN was 98 now 94, creatinine 3.32 now 2.89. TSH 78.8. -Home cardiac medications: Amiodarone 200 mg daily, aspirin 81 mg daily, atorvastatin 40 mg at bedtime, Plavix 75 mg daily, Jardiance 10 mg daily, losartan/hydrochlorothiazide 100-25 mg daily, metoprolol succinate 50 mg daily, Nitrostat as needed, Xarelto 20 mg with supper, spironolactone 25 mg daily, Demadex 10 mg daily. -Lexiscan Cardiolite stress test performed 01/2024: Large area of remote insult anterior wall. No evidence of reversible ischemia. -Echocardiogram 10/22/2023: Technically difficult study with EF 45 to 50%. -Dual-chamber permanent pacemaker Medtronic implantation 11/25/2023 -Cardiac catheterization performed 03/08/2023 revealed significant obstructive disease in the LAD Status post successful stenting of the mid LAD. 09/01 Patient seen and examined. Patient states she is feeling well today. She has not been up and ambulating as she states that no one will let her. Patient does have therapies on consult. Blood pressure 141/68, heart rate 62, pulse ox 94% on room air. Repeat blood work reveals hemoglobin 8.3, BUN 71 creatinine 1.99. Echocardiogram reveals EF 40 to 45%, moderate MR, trace AR, mild TR. 09/02 Patient seen and examined. Patient states that she is improving and would like to go home. Blood pressure 134/59, pulse ox 90% on room air, heart rate is running in the 60s. Repeat blood work reveals BUN 52, creatinine 1.38, potassium 4.1. Physical examination: Gen: This is 68-year-old female in no acute distress VS: reviewed HEENT: Head is atraumatic, normocephalic. Pupils equal, round. Sclerae is anicteric. NECK: Supple. No JVD. LUNGS: Clear to auscultation. No wheezes or rhonchi. No intercostal retractions. HEART: Irregular rate and rhythm. No murmur. ABDOMEN: Soft No tenderness. EXTREMITIES: 1+ bilateral lower extremity edema. No calf tenderness. NEUROLOGICAL: Patient is awake, alert and oriented x3. Assessment: Persistent atrial fibrillation Acute kidney injury with chronic kidney disease stage IIIa Urinary retention Hyperkalemia Abnormal TSH with history of hypothyroidism, attending to address Multiple falls and generalized weakness CAD status post PCI of the mid LAD With residual severe diagonal 1 disease of a small Vessel Dilated cardiomyopathy with EF of 40 to 45% Chronic heart failure with reduced EF Status post dual-chamber permanent pacemaker Medtronic Morbid obesity with BMI of 43 Diabetes mellitus type 2 on insulin Chronic anemia Obstructive sleep apnea not using CPAP Plan: Continue current cardiac medications No evidence of bleeding. May resume Xarelto. Hold Plavix at discharge as patient's last PCI was in 2022. No further cardiac workup at this time. Increase activity Patient is cleared from cardiology perspective for discharge Cardiology will sign off this case and follow on an as-needed basis. Please reconsult for any new concerns. Patient may follow-up in the office in one to 2 weeks. Nurse practitioner note has been reviewed, I agree with documented findings and plan of care. Patient was seen and examined. Objective - Vital Signs Vital signs: Vital Signs Temp 97.7 F 09/02/24 03:45 Pulse 68 09/02/24 04:10 Resp 20 09/02/24 03:45 BP 154/64 09/02/24 03:45 Pulse Ox 97 09/02/24 03:45 FiO2 Intake & Output 09/01/24 09/02/24 09/02/24 18:59 06:59 18:59 Intake Total 650 20 520 Output Total 1425 500 Balance -775 -480 520 Weight 125.1 kg Intake: IV 20 20 Invasive Line 2 20 20 Oral 630 520 Output: Urine 1425 500 Other: Voiding Method Indwelling Catheter Indwelling Catheter # Bowel Movements 2 - Labs CBC & Chem 7: 09/01/24 06:04 09/02/24 06:12 Labs: Abnormal Lab Results - Last 24 Hours (Table) 08/30/24 09/01/24 09/01/24 Range/Units 15:50 11:36 16:55 BUN (7-17) mg/dL Creatinine (0.52-1.04) mg/dL Glucose (74-99) mg/dL POC Glucose (mg/dL) 171 H 157 H (70-110) mg/dL Total Creatine Kinase 279 H (30-223) u/L CK-BB (CK-1) 0.9 H (0.0) % 09/01/24 09/02/24 09/02/24 Range/Units 20:36 06:12 06:26 BUN 52 H (7-17) mg/dL Creatinine 1.38 H (0.52-1.04) mg/dL Glucose 111 H (74-99) mg/dL POC Glucose (mg/dL) 163 H 129 H (70-110) mg/dL Total Creatine Kinase (30-223) u/L CK-BB (CK-1) (0.0) %
--- NOTE | 2024-09-02 14:40 | P.DS ---
Providers Date of admission: 08/30/24 05:26 Expected date of discharge: 09/02/24 Attending physician: Dina Samaniego Consults: 08/30/24 05:26 Consult Physician Routine Consulting Provider: Elena Lipscomb Consult Reason/Comments: CKD Do you want consulting provider notified?: Yes 08/30/24 14:32 Consult Physician Routine Consulting Provider: Dallas Murray Consult Reason/Comments: afib Do you want consulting provider notified?: Yes Primary care physician: Zoie Moore Hospital Course: Final diagnosis Acute on chronic renal failure with severe hypokalemia, history of chronic ki dney disease stage IIIa Urinary retention requiring indwelling Roque catheter, removed and patient is voiding Falls and multiple ecchymosis Hypothyroidism with elevated TSH, and a low T3 and T4 free, adjusting levothyroxine will need outpatient labs in 4-6 weeks Gait dysfunction with recurrent falls Morbid obesity with a BMI of 43.8 Anemia, likely of chronic disease History of atrial fibrillation, persistent, maintained on anticoagulation Diabetes mellitus, type II, uncontrolled with hyperglycemia History of hypertension History of hyperlipidemia History of coronary artery disease with previous stenting to the mid LAD Dilated cardiomyopathy with an EF of 40 to 45% History of chronic heart failure with reduced EF, not in CHF exacerbation Status post dual-chamber permanent pacemaker placement, Medtronic History of obstructive sleep apnea, does not use a CPAP GI prophylaxis DVT prophylaxis Full code Discharge disposition Patient is being discharged in a stable condition with guarded prognosis to [facility]. Patient will follow-up with Dr. Moore in the outpatient setting upon discharge. Patient is to continue with current medications and close outpatient follow-up with cardiology as well as nephrology as scheduled. Repeat labs of CBC, BMP, magnesium in 2 to 3 days. Total time taken is greater than 35 minutes. Hospital course This is a 68-year-old female who was recently admitted with acute on chronic kidney disease with acute renal failure with severe hypokalemia secondary to diuretic use as well as vasomotor nephropathy with a component of urinary retention. Kidney function significantly elevated although significantly improved to 1.38 creatinine today and continues with indwelling Roque catheter. Patient will have a trial void and will continue on Flomax and if retaining recommend to continue with indwelling Roque catheter. Patient also evaluated as patient has been falling and a lot more weak at home by physical therapy and is recommending rehab. Patient is agreeable. Patient has been accepted at [facility] and has received insurance authorization. Patient also evaluated by cardiology as patient has extensive cardiac history with an EF of 40 to 45% with cardiomyopathy and moderate mitral regurgitation. Patient does have chronic anemia likely secondary to chronic disease with no active bleeding noted although patient was on aspirin, Plavix, and Xarelto. Will hold aspirin and discontinue Plavix per cardiology and okay to resume Xarelto. Monitor for any bleeding and again recommend repeat labs of CBC, BMP, magnesium in 2 to 3 days. Please refer to other consultation notes for further HPI. Recommend follow-up with cardiology and nephrology outpatient. Currently no reports of chest pain, shortness of breath, or palpitations. Patient is afebrile. No reports of nausea or vomiting and patient is tolerating diet. Patient will be going to [facility] on the [facility] today. High risk for readmissions given significant comorbidities. Physical exam: Gen: This is a 68-year-old female who is awake, alert and oriented x 3, well- developed, elderly appearing, morbidly obese HEENT: Head is atraumatic, normocephalic. Pupils equal, round. Sclerae is anicteric. NECK: Supple. No JVD. No lymphadenopathy. No thyromegaly. LUNGS: Diminished breath sounds bilaterally otherwise clear to auscultation. No wheezes or rhonchi. No intercostal retractions. HEART: Regular rate and rhythm. No murmur. ABDOMEN: Soft. Obese bowel sounds are present. No masses. No tenderness. EXTREMITIES: No pedal edema. No calf tenderness. NEUROLOGICAL: Patient is awake, alert and oriented x3. Cranial nerves 2 through 12 are grossly intact. Diffusely weak Please refer to medication reconciliation sheet for a list of medications. The impression and plan of care has been dictated by Celsa Ragland, Nurse Practitioner as directed. Dr. Devi MD I have performed a history and examination and MDM of this patient, discussed the same with the dictator, and agree with the dictator's assessment and plan as written ,documented as a scribe. Based on total visit time, I have performed more than 50% of the visit. Patient Condition at Discharge: Stable Plan - Discharge Summary Discharge Rx Participant: No New Discharge Prescriptions: New amLODIPine [Norvasc] 5 mg PO DAILY tab Zinc Sulfate [Orazinc] 220 mg PO DAILY cap Rivaroxaban [Xarelto] 20 mg PO DAILY #30 tab INSULIN LISPRO (HumaLOG) [HumaLOG] 0 unit SQ ACHS each HYDROcodone/APAP 10-325MG [[place] 10-325] 1 each PO Q8H PRN #6 tab PRN Reason: Pain Sodium Bicarbonate Tab 650 mg PO BID tab Levothyroxine Sodium [Synthroid] 75 mcg PO DAILY@0630 tab Continue Omeprazole 20 mg PO HS allopurinoL [Zyloprim] 300 mg PO DAILY oxyBUTYnin chloride [Ditropan] 5 mg PO DAILY Cholecalciferol [Vitamin D3 (25 Mcg = 1000 Iu)] 25 mcg PO DAILY Cetirizine HCl [Zyrtec] 10 mg PO DAILY Amitriptyline HCl [Elavil] 10 mg PO HS Azelastine HCl [Astelin Nasal [place]] 1 spr EA NOSTRIL BID guaiFENesin SYRUP 100MG/5ML [Robitussin] 200 mg PO Q6HR PRN ml PRN Reason: Cough Escitalopram [Lexapro] 10 mg PO DAILY Tirzepatide [Mounjaro] 12.5 mg SQ FR Ferrous Sulfate [Iron (65 MG Elemental)] 325 mg PO DAILY Tamsulosin [Flomax] 0.4 mg PO PC-BRKFST 30 Days #30 cap Atorvastatin [Lipitor] 40 mg PO HS Ascorbic Acid [Vitamin C] 500 mg PO BID tab Metoprolol Succinate (ER) [Toprol XL] 50 mg PO DAILY Albuterol Inhaler [Ventolin Hfa Inhaler] 2 puff INHALATION RT-QID PRN PRN Reason: Shortness Of Breath Nitroglycerin Sl Tabs [Nitrostat] 0.4 mg SL Q5M PRN PRN Reason: Chest Pain Changed Pregabalin [Lyrica] 150 mg PO BID #6 cap Discontinued Rivaroxaban [Xarelto] 20 mg PO W/SUPPER Insulin Aspart [NovoLOG Flexpen] See Protocol SQ AC-TID HYDROcodone/APAP 10-325MG [[place] 10-325] 1 tab PO QID Zinc Sulfate [Orazinc] 220 mg PO DAILY #30 cap Aspirin EC [Ecotrin Low Dose] 81 mg PO DAILY metFORMIN HCL 1,000 mg PO BID Spironolactone [Aldactone] 25 mg PO DAILY Empagliflozin [Jardiance] 10 mg PO DAILY Levothyroxine Sodium [Synthroid] 50 mcg PO DAILY@0630 30 Days #30 tab Clopidogrel [Plavix] 75 mg PO DAILY Amiodarone [Cordarone] 200 mg PO DAILY Losartan/Hydrochlorothiazide [Hyzaar 100-25 Tablet] 1 tab PO DAILY Torsemide [Demadex] 10 mg PO DAILY Discharge Medication List Omeprazole 20 mg PO HS 06/04/16 [History] allopurinoL [Zyloprim] 300 mg PO DAILY 06/04/16 [History] Cholecalciferol [Vitamin D3 (25 Mcg = 1000 Iu)] 25 mcg PO DAILY 09/03/22 [History] oxyBUTYnin chloride [Ditropan] 5 mg PO DAILY 09/03/22 [History] Cetirizine HCl [Zyrtec] 10 mg PO DAILY 04/11/23 [History] Ferrous Sulfate [Iron (65 MG Elemental)] 325 mg PO DAILY 04/11/23 [History] Tamsulosin [Flomax] 0.4 mg PO PC-BRKFST 30 Days #30 cap 10/26/23 [Rx] Amitriptyline HCl [Elavil] 10 mg PO HS 04/29/24 [History] Atorvastatin [Lipitor] 40 mg PO HS 04/29/24 [History] Azelastine HCl [Astelin Nasal [place]] 1 spr EA NOSTRIL BID 04/29/24 [History] Ascorbic Acid [Vitamin C] 500 mg PO BID tab 05/04/24 [Rx] guaiFENesin SYRUP 100MG/5ML [Robitussin] 200 mg PO Q6HR PRN ml 05/04/24 [Rx] Albuterol Inhaler [Ventolin Hfa Inhaler] 2 puff INHALATION RT-QID PRN 08/30/24 [History] Escitalopram [Lexapro] 10 mg PO DAILY 08/30/24 [History] Metoprolol Succinate (ER) [Toprol XL] 50 mg PO DAILY 08/30/24 [History] Nitroglycerin Sl Tabs [Nitrostat] 0.4 mg SL Q5M PRN 08/30/24 [History] Tirzepatide [Mounjaro] 12.5 mg SQ FR 08/30/24 [History] HYDROcodone/APAP 10-325MG [[place] 10-325] 1 each PO Q8H PRN #6 tab 09/02/24 [Rx] INSULIN LISPRO (HumaLOG) [HumaLOG] 0 unit SQ ACHS each 09/02/24 [Rx] Levothyroxine Sodium [Synthroid] 75 mcg PO DAILY@0630 tab 09/02/24 [Rx] Pregabalin [Lyrica] 150 mg PO BID #6 cap 09/02/24 [Rx] Rivaroxaban [Xarelto] 20 mg PO DAILY #30 tab 09/02/24 [Rx] Sodium Bicarbonate Tab 650 mg PO BID tab 09/02/24 [Rx] Zinc Sulfate [Orazinc] 220 mg PO DAILY cap 09/02/24 [Rx] amLODIPine [Norvasc] 5 mg PO DAILY tab 09/02/24 [Rx] Follow up Appointment(s)/Referral(s): Sorin Cabrales MD [Medical Doctor] - 1 Week (HAS AN APPOINTMENT) Zoie Moore DO [Primary Care Provider] - 1-2 days Activity/Diet/Wound Care/Special Instructions: Patient is going to [facility] on [address] Activity as tolerated Patient was having retention requiring indwelling Roque catheter which has been removed, monitor for any further retention Continue Flomax Follow-up with nephrology outpatient Follow-up with cardiology outpatient in 1 week Continue holding Xarelto and aspirin per cardiology with concerns of anemia Continue monitoring Accu-Cheks ACHS and will continue with sliding scale NovoLog sliding scale 0-150 equals 0 units 151-200 equals 2 units 201-250 equals 4 units 251-300 equals 6 units 301-350 equals 8 units 351-400 equals 10 units Please notify provider if blood sugar is 400 or above Continue heart healthy diabetic diet Discharge Disposition: TRANSFER TO SNF/ECF
== END 2024-09-02 16:01 | DRG 683 ==
LOC: EC 03:15 → 3SCARD 05:26
PROVIDERS: ADMIT Hospitalist; ATTEND Hospitalist
DX: N17.0 Acute kidney failure with tubular necrosis (principal); E87.1 Hypo-osmolality and hyponatremia; E87.20 Acidosis, unspecified; R62.7 Adult failure to thrive; D63.1 Anemia in chronic kidney disease; I48.19 Other persistent atrial fibrillation; E86.0 Dehydration; I13.0 Hypertensive heart and chronic kidney disease with heart failure and stage 1 through stage 4 chronic kidney disease, or unspecified chronic kidney disease; E11.22 Type 2 diabetes mellitus with diabetic chronic kidney disease; E66.01 Morbid (severe) obesity due to excess calories; N18.31 Chronic kidney disease, stage 3a; E03.9 Hypothyroidism, unspecified; J45.909 Unspecified asthma, uncomplicated; I08.3 Combined rheumatic disorders of mitral, aortic and tricuspid valves; I50.22 Chronic systolic (congestive) heart failure; Z68.41 Body mass index [BMI] 40.0-44.9, adult; I42.0 Dilated cardiomyopathy; Z79.4 Long term (current) use of insulin; E61.1 Iron deficiency; Z79.890 Hormone replacement therapy; E87.5 Hyperkalemia; R26.9 Unspecified abnormalities of gait and mobility; E78.5 Hyperlipidemia, unspecified; I25.10 Atherosclerotic heart disease of native coronary artery without angina pectoris; K21.9 Gastro-esophageal reflux disease without esophagitis; M19.90 Unspecified osteoarthritis, unspecified site; R33.8 Other retention of urine; E87.6 Hypokalemia; E86.1 Hypovolemia; G47.33 Obstructive sleep apnea (adult) (pediatric); R29.6 Repeated falls; Z79.01 Long term (current) use of anticoagulants; Z79.02 Long term (current) use of antithrombotics/antiplatelets; Z79.82 Long term (current) use of aspirin; Z79.84 Long term (current) use of oral hypoglycemic drugs; Z79.899 Other long term (current) drug therapy; Z90.710 Acquired absence of both cervix and uterus; Z95.5 Presence of coronary angioplasty implant and graft; Z96.653 Presence of artificial knee joint, bilateral; Z90.49 Acquired absence of other specified parts of digestive tract; Z91.81 History of falling
CPT/HCPCS: 36415; 51798; 70450; 71045; 76770; 80048; 80053; 81001; 82533; 82550; 82552; 82728; 83540; 83550; 83605; 83735; 84100; 84132; 84439; 84443; 84481; 84484; 85025; 85610; 85730; 93005; 93306; 94640; 96361; 96365; 96366; 96375; 96376; 99291